=== PATIENT | female | born 1960 | race Caucasian/White ===

== ENCOUNTER 2017-06-29 01:04 | Observation (INO) ==
[2017-06-29 01:49] LABS: Basophils % 0.5 %; Eosinophils # 0.2 K/mcL (0.0-0.6); Eosinophils % 2.8 %; Hematocrit 43.4 % (35.3-44.9); Hemoglobin 14.3 g/dL (11.5-15.4); Immature Granulocytes % 0.2 % (0-4); Immature Platelets 8.5 % (1.1-6.1); Lymphocytes # 0.8 K/mcL (0.6-4.6); Lymphocytes % 8.8 %; Mean Corpuscular HGB Conc 32.9 g/dL (31.6-35.5); Mean Corpuscular Hemoglobin 29.9 pg (28.0-33.3); Mean Corpuscular Volume 90.6 fL (83.0-100.0); Monocytes # 0.6 K/mcL (0.0-1.3); Monocytes % 7.3 %; Platelet Count 148 K/mcL (140-400); Red Blood Count 4.79 M/mcL (3.82-4.97); Red Cell Distribution Width 13.4 % (11.5-14.5); Segmented Neutrophils % 80.4 %
[2017-06-29 01:58] LABS: Bilirubin,Urine Negative (Negative); Blood,Urine Negative (Negative); Clarity,Urine Clear (Clear); Color,Urine Yellow (Yellow); Glucose,Urine (UA) Normal (Normal); Ketones,Urine Negative (Negative); Leukocyte Esterase,Urine Negative (Negative); Nitrite,Urine Negative (Negative); Protein,Urine Negative (Neg-Trace); Urobilinogen,Urine Normal (Normal)
[2017-06-29 02:03] LABS: Amphetamine Screen,Urine Negative ng/mL (Cutoff=1000); Barbiturate Screen,Urine Negative ng/mL (Cutoff=200); Benzodiazepines Screen,Urine Negative ng/mL (Cutoff=200); Cannabinoid Screen,Urine Positive ng/mL (Cutoff = 50); Cocaine Screen,Urine Negative ng/mL (Cutoff= 300); Opiate Screen,Urine Negative ng/mL (Cutoff=300); Phencyclidine Screen,Urine Negative ng/mL (Cutoff=25)
[2017-06-29 02:16] LABS: Acetaminophen < 1.0 mcg/mL (10-30); Alanine Aminotransferase 13 Units/L (0-55); Albumin 3.7 g/dL (3.5-5.0); Alkaline Phosphatase 144 Units/L (38-126); Aspartate Amino Transferase 11 Units/L (5-34); BUN/Creatinine Ratio 12 (6-26); Bilirubin,Direct 0.1 mg/dL (0.0-0.5); Bilirubin,Indirect 0.1 mg/dL (0.0-1.2); Bilirubin,Total 0.2 mg/dL (0.2-1.2); Blood Urea Nitrogen 13 mg/dL (7-20); Calcium 9.7 mg/dL (8.6-10.8); Carbon Dioxide 24 mEq/L (19-29); Chloride 105 mEq/L (98-109); Ethanol < 10 mg/dL (0-10); Globulin 3.8 g/dL (2.4-3.5); Glucose 96 mg/dL (70-99); Osmolality,Calculated 296 (280-300); Potassium 3.8 mEq/L (3.5-4.5); Salicylate < 5.0 mg/dL (15-30); Sodium 143 mEq/L (136-145); Total Protein 7.5 g/dL (6.0-8.3); eGFR For African Americans > 60 (> 60); eGFR For Non-African Americans 53 (> 60)
--- NOTE | 2017-06-29 04:21 | Emergency Department Note ---
Disposition Clinical Impression: Overdose Qualifiers: Encounter type: initial encounter Injury intent: accidental or unintentional Qualified Code(s): T50.901A - Poisoning by unspecified drugs, medicaments and biological substances, accidental (unintentional), initial encounter Altered mental state Qualifiers: Altered mental status type: somnolence Qualified Code(s): R40.0 - Somnolence Disposition: Admitted As Inpatient Condition: Good General Adult HPI - General Chief complaint: ED Altered Mental Status Stated complaint: confusion Time Seen by Provider: 06/29/17 01:25 Source: patient, family Mode of arrival: private vehicle Limitations: altered mental status Nursing Notes Reviewed: Yes Vital Signs Reviewed: Yes - History of Present Illness HPI Narrative: 56-year-old female who reports that she took more gabapentin and more baclofen that she was supposed to. She denies any suicidal ideation. Her brought her into the emergency department because she was becoming more somnolent. She also was confused. He reports she has done this a few times. He has not always brought to the emergency room when she does this. He cannot tell me exactly how much gabapentin or baclofen she took. He reports until she took those medications evening she was acting normally. She has a past medical history of COPD, depression, hypothyroidism, hyperlipidemia. She does have some chronic back pain. Radiation: non-radiation Consistency: constant Improves with: nothing Worsens with: nothing Associated symptoms: Reports: denies other symptoms Treatments Prior to Arrival: none - Related Data Home Medications Medication Instructions Recorded Confirmed Atorvastatin [Lipitor] 40 mg PO HS 04/10/15 04/10/17 Sertraline [Zoloft] 200 mg PO DAILY 04/10/15 04/10/17 Albuterol Sulfate [Albuterol 2 puff IH Q4H PRN 09/01/16 04/10/17 Inhaler] BuPROPion SR (12 HR) [Wellbutrin 150 mg PO DAILY 09/01/16 04/10/17 SR] Esomeprazole Magnesium [Nexium] 40 mg PO DAILY 09/01/16 04/10/17 Levothyroxine [Synthroid] 112 mcg PO QAM 09/01/16 04/10/17 Meloxicam [Mobic] 15 mg PO DAILY 09/01/16 02/14/17 Nystatin Cream [Mycostatin Cream] 1 appl TP BID 09/01/16 04/10/17 Potassium Chloride [Klor-Con 10] 20 meq PO BID 09/01/16 04/10/17 Spironolactone [Aldactone] 100 mg PO DAILY 09/01/16 04/10/17 Trazodone HCl 200 mg PO HS 09/01/16 04/10/17 Previous Rx's Medication Instructions Recorded Hydrocortisone 1% OINT [Cortaid] 1 appl TP BID #1 tube 05/06/15 ALPRAZolam [Xanax 1 MG Tablet] 0.5 mg PO TID #0 09/04/16 Baclofen 20 mg PO HS #0 09/04/16 Furosemide [Lasix] 40 mg PO DAILY PRN #0 09/04/16 Gabapentin [Neurontin] 300 mg PO TID #0 09/04/16 Zolpidem [Ambien] 5 mg PO HS PRN #0 09/04/16 Budesonide [Entocort EC] 2 cap PO DAILY PRN #60 capdr...er 12/29/16 Promethazine [Phenergan] 25 mg PO Q6HR PRN #10 tablet 02/05/17 Loperamide [Imodium] 2 mg PO AD PRN #60 capsule 03/24/17 Diphenoxylate/Atropine [Lomotil 1 tab PO QID PRN #60 tablet 06/19/17 2.5 mg/0.025 mg] Allergies Allergy/AdvReac Type Severity Reaction Status Date / Time Latex, Natural Rubber AdvReac Anaphylaxis Verified 05/22/17 13:05 All systems ED: reviewed and negative except as stated. 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 Absent: respiratory distress - Cardiovascular Cardiovascular exam: Present: regular rate, normal rhythm - Abdominal Exam Abdominal exam: Present: soft, Non-Tender - Extremities Exam Extremities exam: Present: normal inspection - Neurological Exam Neurological exam: Present: alert, other (Appears intoxicated. Moves all extremities equally.) - Skin Skin exam: Present: warm, dry Course Course Narrative: Poison control was called. They recommended an observation period they stated the baclofen has a longer duration of action and is more likely be the cause of her somnolence. They report the adverse side effects to look out for would be potential for seizures if the amount that she ingested would push her pass the seizure threshold. They do not recommend empirically treating or prophylactic for seizures. She has been observed in the emergency department for over 2 hours and has not had improvement in her somnolence. We will admit to the hospital for further observation. QTC is normal on EKG Accepted by [facility] Vital Signs Pulse Rate 66 06/29/17 04:54 Respiratory Rate 16 06/29/17 04:54 Blood Pressure 132/89 06/29/17 04:54 O2 Sat by Pulse Oximetry 94 06/29/17 04:54 Temperature 98.2 F 06/29/17 04:58 Pulse Rate 66 06/29/17 04:58 Respiratory Rate 16 06/29/17 04:58 Blood Pressure 132/89 06/29/17 04:58 O2 Sat by Pulse Oximetry 94 06/29/17 04:58 Oxygen Delivery Oxygen Delivery Room Air Medical Decision Making - Medical Records Medical records reviewed: Yes I reviewed the patient's medical records. - Lab Data Lab results reviewed: Yes I reviewed the patient's lab results. Result diagrams: 06/29/17 01:40 06/29/17 01:40 Lab Results 06/29/17 06/29/17 06/29/17 Range/Units 01:40 01:40 01:50 WBC 8.7 (4.3-11.1) K/mcL RBC 4.79 (3.82-4.97) M/mcL Hgb 14.3 (11.5-15.4) g/dL Hct 43.4 (35.3-44.9) % MCV 90.6 (83.0-100.0) fL MCH 29.9 (28.0-33.3) pg MCHC 32.9 (31.6-35.5) g/dL RDW 13.4 (11.5-14.5) % Plt Count 148 (140-400) K/mcL MPV 12.0 (9.4-12.4) fL Immature Gran % 0.2 (0-4) % Seg Neutrophils % 80.4 % Lymphocytes % 8.8 % Monocytes % 7.3 % Eosinophils % 2.8 % Basophils % 0.5 % Neutrophils # 7.0 (1.6-8.9) K/mcL Lymphocytes # 0.8 (0.6-4.6) K/mcL Monocytes # 0.6 (0.0-1.3) K/mcL Eosinophils # 0.2 (0.0-0.6) K/mcL Basophils # 0.0 (0.0-0.2) K/mcL Immature Plt Fraction 8.5 H (1.1-6.1) % Sodium 143 (136-145) mEq/L Potassium 3.8 (3.5-4.5) mEq/L Chloride 105 (98-109) mEq/L Carbon Dioxide 24 (19-29) mEq/L BUN 13 (7-20) mg/dL Creatinine 1.07 (0.57-1.11) mg/dL Est GFR ( Amer) > 60 (> 60) Est GFR (Non-Af Amer) 53 L (> 60) BUN/Creatinine Ratio 12 (6-26) Glucose 96 (70-99) mg/dL Calculated Osmolality 296 (280-300) Calcium 9.7 (8.6-10.8) mg/dL Total Bilirubin 0.2 (0.2-1.2) mg/dL Direct Bilirubin 0.1 (0.0-0.5) mg/dL Indirect Bilirubin 0.1 (0.0-1.2) mg/dL AST 11 (5-34) Units/L ALT 13 (0-55) Units/L Alkaline Phosphatase 144 H (38-126) Units/L Serum Total Protein 7.5 (6.0-8.3) g/dL Albumin 3.7 (3.5-5.0) g/dL Globulin 3.8 H (2.4-3.5) g/dL Albumin/Globulin Ratio 1.0 L (1.1-2.2) Urine Color Yellow (Yellow) Urine Clarity Clear (Clear) Urine pH 5.0 (5.0-8.0) pH Units Ur Specific Warren 1.010 (1.010-1.025) Urine Protein Negative (Neg-Trace) mg/dL Urine Glucose (UA) Normal (Normal) mg/dL Urine Ketones Negative (Negative) mg/dL Urine Blood Negative (Negative) Urine Nitrite Negative (Negative) Urine Bilirubin Negative (Negative) Urine Urobilinogen Normal (Normal) mg/dL Ur Leukocyte Esterase Negative (Negative) Salicylates < 5.0 L (15-30) mg/dL Urine Opiates Screen (Sauxvq=612) ng/mL Acetaminophen < 1.0 L (10-30) mcg/mL Ur Barbiturates Screen (Rbtzty=599) ng/mL Ur Phencyclidine Scrn (Cutoff=25) ng/mL Ur Amphetamines Screen (Fdfzdo=1023) ng/mL U Benzodiazepines Scrn (Vmgahz=420) ng/mL Urine Cocaine Screen (Cutoff= 300) ng/mL U Marijuana (THC) Screen (Cutoff = 50) ng/mL Ethyl Alcohol < 10 (0-10) mg/dL 06/29/17 Range/Units 01:50 WBC (4.3-11.1) K/mcL RBC (3.82-4.97) M/mcL Hgb (11.5-15.4) g/dL Hct (35.3-44.9) % MCV (83.0-100.0) fL MCH (28.0-33.3) pg MCHC (31.6-35.5) g/dL RDW (11.5-14.5) % Plt Count (140-400) K/mcL MPV (9.4-12.4) fL Immature Gran % (0-4) % Seg Neutrophils % % Lymphocytes % % Monocytes % % Eosinophils % % Basophils % % Neutrophils # (1.6-8.9) K/mcL Lymphocytes # (0.6-4.6) K/mcL Monocytes # (0.0-1.3) K/mcL Eosinophils # (0.0-0.6) K/mcL Basophils # (0.0-0.2) K/mcL Immature Plt Fraction (1.1-6.1) % Sodium (136-145) mEq/L Potassium (3.5-4.5) mEq/L Chloride (98-109) mEq/L Carbon Dioxide (19-29) mEq/L BUN (7-20) mg/dL Creatinine (0.57-1.11) mg/dL Est GFR ( Amer) (> 60) Est GFR (Non-Af Amer) (> 60) BUN/Creatinine Ratio (6-26) Glucose (70-99) mg/dL Calculated Osmolality (280-300) Calcium (8.6-10.8) mg/dL Total Bilirubin (0.2-1.2) mg/dL Direct Bilirubin (0.0-0.5) mg/dL Indirect Bilirubin (0.0-1.2) mg/dL AST (5-34) Units/L ALT (0-55) Units/L Alkaline Phosphatase (38-126) Units/L Serum Total Protein (6.0-8.3) g/dL Albumin (3.5-5.0) g/dL Globulin (2.4-3.5) g/dL Albumin/Globulin Ratio (1.1-2.2) Urine Color (Yellow) Urine Clarity (Clear) Urine pH (5.0-8.0) pH Units Ur Specific Warren (1.010-1.025) Urine Protein (Neg-Trace) mg/dL Urine Glucose (UA) (Normal) mg/dL Urine Ketones (Negative) mg/dL Urine Blood (Negative) Urine Nitrite (Negative) Urine Bilirubin (Negative) Urine Urobilinogen (Normal) mg/dL Ur Leukocyte Esterase (Negative) Salicylates (15-30) mg/dL Urine Opiates Screen Negative (Cwsaro=501) ng/mL Acetaminophen (10-30) mcg/mL Ur Barbiturates Screen Negative (Qmyrlx=292) ng/mL Ur Phencyclidine Scrn Negative (Cutoff=25) ng/mL Ur Amphetamines Screen Negative (Tutena=6264) ng/mL U Benzodiazepines Scrn Negative (Pafyyq=812) ng/mL Urine Cocaine Screen Negative (Cutoff= 300) ng/mL U Marijuana (THC) Screen Positive H (Cutoff = 50) ng/mL Ethyl Alcohol (0-10) mg/dL - Radiology Data Radiology results reviewed: Yes I reviewed the patient's radiology results. - EKG Data EKG #1 EKG attestation: Yes I reviewed and interpreted this EKG. EKG shows normal: sinus rhythm Rate: normal Rhythm: NSR Vinson/QRS: normal Interpretation: no acute changes Attestation Statement - Attestation Attestation: I, Srinath Mejia MD, personally evaluated this patient and discussed their management with the resident physician. I reviewed the resident's note and agree with the documented findings, medical decision making, and plan of care. 56-year-old female presents to the emergency department by ambulance for decreased mental status and confusion. Patient admitted to taking extra of her baclofen and gabapentin. She denies any suicidal ideation or intent. Rock Mason Apprentice reports that she has done this before. He called EMS tonight because she was more difficult to arouse than usual. On examination patient is a well-developed obese female who is obtunded. She responds to physical stimuli and mumbles when asked questions but is very difficult to understand. There is no cyanosis or diaphoresis and her vital signs are normal. Breath sounds are clear and equal bilaterally. Heart regular rate and rhythm. Abdomen is soft with normal bowel sounds. No gross focal neurological deficits. Labs reviewed. No acute changes on EKG. The hospitalist, Dr. Iverson, was consulted and accepted admission of the patient.
--- NOTE | 2017-06-29 05:25 | Internal Med History&Physical ---
Date of Encounter: 06/29/17 Time of Encounter: 05:00 Assessment and Plan (1) Altered mental status Current visit: Yes Status: Acute -Patient with altered mental status secondary to prescription drug overdose; drug overdose of gabapentin/baclofen -Overdose managed as below Qualifiers: Altered mental status type: somnolence Qualified Code(s): R40.0 - Somnolence (2) Overdose Current visit: Yes Status: Acute -ER physician reports that poison control recommends supportive care of drug overdose with gabapentin/baclofen. -Will monitor patient on telemetry in addition to pulse oximetry. Qualifiers: Encounter type: initial encounter Injury intent: accidental or unintentional Qualified Code(s): T50.901A - Poisoning by unspecified drugs, medicaments and biological substances, accidental (unintentional), initial encounter (3) Drowsiness Current visit: No Status: Acute -Will order every 2 hour neuro checks for somnolence due to drug overdose above. (4) Polypharmacy Current visit: No Status: Acute -Patient on multiple narcotic/anti-anxiety /mood medications (5) Hypothyroid Current visit: Yes Status: Acute -Will continue home medication of levothyroxine Qualifiers: Hypothyroidism type: unspecified Qualified Code(s): E03.9 - Hypothyroidism , unspecified (6) Hyperlipemia Current visit: Yes Status: Acute -Continue home dose of statin Qualifiers: Hyperlipidemia type: unspecified Qualified Code(s): E78.5 - Hyperlipidemia , unspecified (7) Mood disorder Current visit: Yes Status: Acute -Continue home medications Internal Medicine - H&P: HPI Admitted From: Home Plans for Post Hospital Care: Home History of present illness: Patient is a 56-year-old female with past medical history significant for chronic back pain, mood disorder, hypothyroid and hyperlipidemia, who presented to the ER on 06/29/17 due to altered mental status. Patient is not able to give history due to somnolence/altered mental status and no family present at bedside. Per ER physician, significant other brought patient to the ER after reporting patient was more somnolent than usual due to suspected overdose of gabapentin/ baclofen; significant other uncertain of how much of the medications that patient overdosed on. On exam, patient is very somnolent and only oriented to person and can barely stay awake to do the examination. ER physician reports that poison control recommends supportive care. Patient will be admitted to the medical floor for management of drug overdose. Past Med Surg Social Fam HX - Past Medical History Medical history: cancer, hyperlipidemia, other Psychiatric history: anxiety, bipolar, depression, schizophrenia, previous psychiatric hospitalization - Past Surgical History Surgical History: other, appendectomy - Social History Smoking Status: Current every day smoker Smokeless Tobacco Status: No Alcohol use: none Drug use: marijuana - Family History Father Living Status: Hx Family Cardiac Disorders: Yes Hx Family Respiratory Disorders: Yes Mother Living Status: Still Living Internal Medicine - H&P: Meds Atorvastatin [Lipitor] 40 mg PO HS 04/10/15 [History] Sertraline [Zoloft] 200 mg PO DAILY 04/10/15 [History] Hydrocortisone 1% OINT [Cortaid] 1 appl TP BID #1 tube 05/06/15 [Rx] Albuterol Sulfate [Albuterol Inhaler] 2 puff IH Q4H PRN 09/01/16 [History] BuPROPion SR (12 HR) [Wellbutrin SR] 150 mg PO DAILY 09/01/16 [History] Esomeprazole Magnesium [Nexium] 40 mg PO DAILY 09/01/16 [History] Levothyroxine [Synthroid] 112 mcg PO QAM 09/01/16 [History] Meloxicam [Mobic] 15 mg PO DAILY 09/01/16 [History] Nystatin Cream [Mycostatin Cream] 1 appl TP BID 09/01/16 [History] Potassium Chloride [Klor-Con 10] 20 meq PO BID 09/01/16 [History] Spironolactone [Aldactone] 100 mg PO DAILY 09/01/16 [History] Trazodone HCl 200 mg PO HS 09/01/16 [History] ALPRAZolam [Xanax 1 MG Tablet] 0.5 mg PO TID #0 09/04/16 [Rx] Baclofen 20 mg PO HS #0 09/04/16 [Rx] Furosemide [Lasix] 40 mg PO DAILY PRN #0 09/04/16 [Rx] Gabapentin [Neurontin] 300 mg PO TID #0 09/04/16 [Rx] Zolpidem [Ambien] 5 mg PO HS PRN #0 09/04/16 [Rx] Budesonide [Entocort EC] 2 cap PO DAILY PRN #60 capdr...er 12/29/16 [Rx] Promethazine [Phenergan] 25 mg PO Q6HR PRN #10 tablet 02/05/17 [Rx] Loperamide [Imodium] 2 mg PO AD PRN #60 capsule 03/24/17 [Rx] Diphenoxylate/Atropine [Lomotil 2.5 mg/0.025 mg] 1 tab PO QID PRN #60 tablet [Rx] 3 Allergy/AdvReac Type Severity Reaction Status Date / Time Latex, Natural Rubber AdvReac Anaphylaxis Verified 05/22/17 13:05 ROS unobtainable: due to mental status (No family present at bedside to give history) All Systems PM: A 10-system review of systems was performed and is negative for pertinent findings except as documented above in the HPI. - Constitutional Vitals: Temp Pulse Resp BP Pulse Ox 98.2 F 66 16 132/89 94 06/29/17 04:58 06/29/17 04:58 06/29/17 04:58 06/29/17 04:58 06/29/17 04:58 General appearance: Present: A&O X 1, no acute distress - ENT ENT exam: Present: mucous membranes dry - Respiratory Respiratory exam: Present: CTAB. Absent: accessory muscle use, rales, rhonchi, wheezes - Cardiovascular Cardiovascular exam: Present: RRR, +S1, +S2. Absent: diastolic murmur, gallop, rubs, systolic murmur - GI/Abdominal GI/Abdominal exam: Present: normal bowel sounds, soft, no peritoneal signs. Absent: distended, tenderness - Extremities Exam Extremities exam: Absent: pedal edema - Neurological Exam Additional comments: Patient very somnolent on exam - Skin Skin exam: Present: warm Internal Med - H&P Results - Labs CBC & Chem 7: 06/29/17 01:40 06/29/17 01:40
[2017-06-29] MEDS ORDERED: Naloxone 0.4 MG/ML INJ IVP PRN (05:39)
--- NOTE | 2017-06-29 18:26 | Electrocardiograph Report ---
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
--- NOTE | 2017-06-29 21:18 | Event Note ---
Date of Encounter: 06/29/17 Time of Encounter: 12:12 Patient was evaluated at bedside. Boyfriend is present in room. She still displayed acute confused with alteration in alertness. Boyfriend stated she is not at baseline. They cannot identify source of AMS. He does note that she has had AMS from a UTI in the past. VS reviewed, normal BP/HR, afebrile Exam: cooperative with exam, responds to questions but she runs off tangents when answering some questions. Remainder of neuro exam is normal. 1) Acute encephalopathy Thought to be polypharmacy. Her boyfriend, her primary historian states that she sometimes takes too many pills because she is no longer prescribed pain medication. He admits that she smokes marijuana and denies any new type of marijuana or drug recently. He reports history of UTI encephalopathy but her urine does not show UTI today.This very well could be polypharmacy, would anticipate that renal function would be affected in the case of excessive gabapentin. - I would like to plan for CT of head when able. She may or may not be cooperative during the imaging. Her boyfriend noted that she gets anxious and would need Ativan to relax her. Given her altered mental status, I would avoid this at the moment. - Keep her NPO, will revaluate alertness - follow-up renal function in AM - continue supportive care - neuro checks - Neurology consult if no improvement.
[2017-06-29] MEDS: Nystatin POWDER 30 GM BOTTLE TP SCH (23:39)
[2017-06-30 05:35] LABS: Basophils % 0.5 %; Eosinophils % 2.4 %; Hematocrit 39.7 % (35.3-44.9); Hemoglobin 12.9 g/dL (11.5-15.4); Immature Granulocytes % 0.2 % (0-4); Lymphocytes % 19.1 %; Mean Corpuscular HGB Conc 32.5 g/dL (31.6-35.5); Mean Corpuscular Hemoglobin 29.4 pg (28.0-33.3); Mean Corpuscular Volume 90.4 fL (83.0-100.0); Mean Platelet Volume 11.2 fL (9.4-12.4); Monocytes % 8.7 %; Platelet Count 124 K/mcL (140-400); Red Blood Count 4.39 M/mcL (3.82-4.97); Red Cell Distribution Width 13.5 % (11.5-14.5); Segmented Neutrophils % 69.1 %
[2017-06-30 05:36] LABS: Eosinophils # 0.1 K/mcL (0.0-0.6); Lymphocytes # 1.1 K/mcL (0.6-4.6); Monocytes # 0.5 K/mcL (0.0-1.3)
[2017-06-30 05:53] LABS: BUN/Creatinine Ratio 15 (6-26); Blood Urea Nitrogen 14 mg/dL (7-20); Calcium 9.3 mg/dL (8.6-10.8); Carbon Dioxide 25 mEq/L (19-29); Chloride 107 mEq/L (98-109); Glucose 95 mg/dL (70-99); Osmolality,Calculated 292 (280-300); Potassium 3.6 mEq/L (3.5-4.5); Sodium 141 mEq/L (136-145); eGFR For African Americans > 60 (> 60); eGFR For Non-African Americans > 60 (> 60)
--- NOTE | 2017-06-30 12:31 | Internal Med Progress Note ---
Date of Encounter: 06/30/17 Time of Encounter: 12:29 - Assessment and plan (1) Acute encephalopathy Current Visit: Yes Status: Acute Assessment and plan: Suspecious for overdose. However, patient has been observed and still not at baseline, as per boyfriend's description of her baseline yesterday. I think at this point, she would tolerate a CT of head. Consult neurology. (2) Polypharmacy Current Visit: No Status: Acute (3) Drowsiness Current Visit: No Status: Resolved Assessment and plan: No longer drowsy but does still exhibit encephalopathy. (4) Hypothyroid Current Visit: Yes Status: Acute Qualifiers: Hypothyroidism type: unspecified Qualified Code(s): E03.9 - Hypothyroidism , unspecified (5) Hyperlipemia Current Visit: Yes Status: Acute Qualifiers: Hyperlipidemia type: unspecified Qualified Code(s): E78.5 - Hyperlipidemia , unspecified (6) Mood disorder Current Visit: Yes Status: Acute - Subjective Interval history: Boyfriend is not present in room. Patient still has difficulty with verbally communication. She responds to commands and answer many questions. Some stuttering and tremors present today. - Constitutional Vitals: Temp Pulse Resp BP Pulse Ox 97.5 F L 78 15 120/76 95 06/30/17 10:09 06/30/17 10:09 06/30/17 10:09 06/30/17 10:09 06/30/17 10:09 General appearance: Present: A&O X 1, no acute distress Exam: NAD CVS: RRR Lungs: CTAB Ext: no edema Neuro: no focal neuro defecits, speech is incoherent, CN II-XII grossly intact. Sensation and muscle strength is preserved. Internal Medicine: Result - Labs CBC & Chem 7: 06/30/17 05:17 06/30/17 05:17 Labs: Short CBC 06/30/17 Range/Units 05:17 WBC 5.8 (4.3-11.1) K/mcL Hgb 12.9 (11.5-15.4) g/dL Hct 39.7 (35.3-44.9) % Plt Count 124 L (140-400) K/mcL Neutrophils # 4.0 (1.6-8.9) K/mcL BMP 06/30/17 05:17 Sodium 141 Potassium 3.6 Chloride 107 Carbon Dioxide 25 BUN 14 Creatinine 0.95 Glucose 95 Calcium 9.3 - VTE Reasons for not Prescribing Prophylaxis: Treatment not Indicated - Low risk for VTE Consult Discharge Plan - Plan Referrals: Johnie Farley MD [Primary Care Provider] - 07/07/17 1:15 pm
[2017-06-30] MEDS ORDERED: *HR* LORazepam 2 MG/ML VIAL IVP PRN (12:33)
--- NOTE | 2017-06-30 17:18 | Neurology - Consult Note ---
Date of Encounter: 06/30/17 Time of Encounter: 17:16 Assessment and Plan (1) Multiple sclerosis exacerbation Current Visit: Yes Status: Acute Patient with past medical history of multiple sclerosis who developed fall and mental status changes. Speech difficulty is rather severe and can only speak few words. No focal limb weakness except some muscle spasticity. Will treat as MS exacerbation since no other medical conditions exist that can explain her symptoms. Will check gabapentin level. Not sure she overdosed anything. Will start solumedrol 1 g I daily for 3 days followed by oral taper. (2) Cervical disc disease with myelopathy Current Visit: Yes Status: Acute Patient also appears myelopathic ( in a patient with advanced MS, myelopathic symptoms can be from diffuse encephalopathy). MRI of cervical spine 01/2017 showed spinal cord disc compression at C5-C6. No discrete spinal cord signal changes noted. This likely is getting worse. Will order MRI of cervical spine and then consult ortho History of Present Illness Chief complaint: fall and mental status changes HPI: Ms. Copeland is a 56 year old female with PMH significant for MS, ADHD, depression, cervical disc disease, history of rectal or anal cancer, unsteady gait, falls, hypventilation syndrome, IVAN on BPAP who developed a fall and mental status changes. heard a fall and found her unable to talk. She does have history of MS but has not seen a neurologist recently. She has not been taking any MS DMT therapy. MRI of brain in 01/2017 showed evidence of demyelinating disorder most consistent with MS. At he time of this interview, patient is having difficulty talking. Able to tell me her name and date of . Other than, she could not answer questions and she would then develop mouth tremors. She is not in significant pain. She at times respond to question with a smile. No focal weakness noted but spasticity noted to both legs. CT of head showed no acute intracranial abnormality. Initially it was thought that she may overdosed baclofen/gabapentin. Patient denies this. Routine labs were unremarkable. Urine drug screen showed positive Marijuana. Past Med Surg Social Fam HX - Past Medical History Medical history: cancer, hyperlipidemia, other Psychiatric history: anxiety, bipolar, depression, schizophrenia, previous psychiatric hospitalization - Past Surgical History Surgical History: other, appendectomy - Social History Smoking Status: Current every day smoker Smokeless Tobacco Status: No Alcohol use: none Drug use: marijuana - Family History Father Living Status: Hx Family Cardiac Disorders: Yes Hx Family Respiratory Disorders: Yes Mother Living Status: Still Living Medications and Allergies Atorvastatin [Lipitor] 40 mg PO HS 04/10/15 [History] Sertraline [Zoloft] 100 mg PO DAILY 04/10/15 [History] Albuterol Sulfate [Albuterol Inhaler] 2 puff IH Q4H PRN 09/01/16 [History] Levothyroxine [Synthroid] 112 mcg PO QAM 09/01/16 [History] Meloxicam [Mobic] 15 mg PO DAILY 09/01/16 [History] Potassium Chloride [Klor-Con 10] 20 meq PO BID 09/01/16 [History] Trazodone HCl 200 mg PO HS 09/01/16 [History] ALPRAZolam [Xanax 1 MG Tablet] 0.5 mg PO TID #0 09/04/16 [Rx] Baclofen 20 mg PO HS #0 09/04/16 [Rx] Furosemide [Lasix] 40 mg PO DAILY PRN #0 09/04/16 [Rx] Zolpidem [Ambien] 5 mg PO HS PRN #0 09/04/16 [Rx] Promethazine [Phenergan] 25 mg PO Q6HR PRN #10 tablet 02/05/17 [Rx] Diphenoxylate/Atropine [Lomotil 2.5 mg/0.025 mg] 1 tab PO QID PRN #60 tablet [Rx] Fluticasone Propionate [Flovent Hfa] 1 puff IH BID 06/29/17 [History] Gabapentin [Neurontin] 600 mg PO TID 06/29/17 [History] Mirabegron [Myrbetriq] 50 mg PO DAILY 06/29/17 [History] Pantoprazole Sodium [Protonix] 40 mg PO DAILY 06/29/17 [History] 3 Allergy/AdvReac Type Severity Reaction Status Date / Time Latex, Natural Rubber AdvReac Anaphylaxis Verified 05/22/17 13:05 All Systems: A 10-system review of systems was performed and is negative for pertinent findings except as documented above in the HPI. Physical Examination - Vital Signs Vital Signs: Initial Vital Signs Pulse Resp BP Pulse Ox 66 16 132/89 94 06/29/17 04:54 06/29/17 04:54 06/29/17 04:54 06/29/17 04:54 - Constitutional General appearance: comfortable - Neurologic Sensorimotor examination: other (Unable to assess due to speech difficulty) Detailed motor examination: grossly full strength in all extremities (spastic in all extremities. Hand air brush operator are equal. Musble strength at least 4+/5 bilaterally) Detailed sensory examination: other (unable to assess due to speech difficulty) Reflexes: Biceps: 2+, Triceps: 2+, Brachioradialis: 2+, Patella: 2+, Achilles: 2 + Mental Status Examination: awake, alert, follows commands appropriately, does not follow commands (Patient has speech diffiiculty, expressive aphasia), opens eyes to voice, makes eye contact, follows simple commands Cranial nerve examination: PERRL, EOMI (eye movement full), corneal reflexes brisk symmetrically, sensory to face intact, mastication intact, no facial asymmetry is present, hearing is intact symmetrically, gag reflex intact, tongue protrudes midline Results - Laboratory Findings CBC and BMP: 06/30/17 05:17 06/30/17 05:17 Abnormal lab findings: Abnormal lab results Plt Count 124 K/mcL (140-400) L 06/30/17 05:17 Immature Plt Fraction 8.5 % (1.1-6.1) H 06/29/17 01:40 POC Glucose 94 (58-89) H 06/30/17 03:38 Alkaline Phosphatase 144 Units/L (38-126) H 06/29/17 01:40 Globulin 3.8 g/dL (2.4-3.5) H 06/29/17 01:40 Albumin/Globulin Ratio 1.0 (1.1-2.2) L 06/29/17 01:40 Salicylates < 5.0 mg/dL (15-30) L 06/29/17 01:40 Acetaminophen < 1.0 mcg/mL (10-30) L 06/29/17 01:40 U Marijuana (THC) Screen Positive ng/mL (Cutoff = 50) H 06/29/17 01:50 Consult Discharge Plan - Plan Referrals: Johnie Farley MD [Primary Care Provider] - 07/07/17 1:15 pm
[2017-06-30] MEDS ORDERED: *HR* LORazepam 2 MG/ML VIAL IVP ONE (17:38)
[2017-07-01] MEDS: Nystatin POWDER 30 GM BOTTLE TP SCH ×5 (00:16→21:06)
[2017-07-01 06:34] LABS: Hematocrit 42.8 % (35.3-44.9); Immature Granulocytes % 0.2 % (0-4); Lymphocytes # 0.4 K/mcL (0.6-4.6); Lymphocytes % 8.7 %; Mean Corpuscular HGB Conc 32.7 g/dL (31.6-35.5); Mean Corpuscular Hemoglobin 29.2 pg (28.0-33.3); Mean Corpuscular Volume 89.4 fL (83.0-100.0); Mean Platelet Volume 11.3 fL (9.4-12.4); Monocytes # 0.1 K/mcL (0.0-1.3); Neutrophils # 4.4 K/mcL (1.6-8.9); Platelet Count 145 K/mcL (140-400); Red Blood Count 4.79 M/mcL (3.82-4.97); Red Cell Distribution Width 13.1 % (11.5-14.5); Segmented Neutrophils % 90.1 %
[2017-07-01 06:47] LABS: BUN/Creatinine Ratio 22 (6-26); Blood Urea Nitrogen 20 mg/dL (7-20); Calcium 9.6 mg/dL (8.6-10.8); Carbon Dioxide 22 mEq/L (19-29); Chloride 103 mEq/L (98-109); Glucose 142 mg/dL (70-99); Osmolality,Calculated 289 (280-300); Potassium 3.7 mEq/L (3.5-4.5); Sodium 137 mEq/L (136-145); eGFR For African Americans > 60 (> 60); eGFR For Non-African Americans > 60 (> 60)
[2017-07-01] MEDS ORDERED: Insulin DETEMIR 100 UNIT/ML X5UNITS SQ ONE (10:07)
[2017-07-01] MEDS ORDERED: D5% in 0.45% NACL w KCl 10 MEQ/1,000 ML MLS IVC SCH (10:15)
--- NOTE | 2017-07-01 11:06 | Neurology Progress Note ---
Date of Encounter: 07/01/17 Time of Encounter: 11:03 Assessment and Plan (1) Multiple sclerosis exacerbation Current Visit: Yes Status: Acute Symptoms improving especially her speech difficulty. Leg strength also improved back. Will continue IV steroid therapy as planned, followed by oral taper. She may benefit from PT. (2) Cervical disc disease with myelopathy Current Visit: Yes Status: Acute Patient refused MRI scanning due to claustrophobia. She has had MRI of thoracic spine one month ago. This can be properly followed up as an outpatient. Subjective Principal diagnosis: MS exacerbation Interval history: Patient seen and examined. She is doing much better today especially in terms of her speech. She is rather fluent now and able to communicate with no difficulty. Denies any significant discomforts. She denied MRI due to significant claustrophobia. She relates that she has seen neurologist at [facility] [place] and she was last seen by her neurologist one month ago. Not sure why she is not on MS DMT therapy. Objective - Constitutional Vitals: Temp Pulse Resp BP Pulse Ox 97.6 F 95 15 146/92 94 07/01/17 03:58 07/01/17 03:58 07/01/17 03:58 07/01/17 03:58 07/01/17 03:58 - Neurological Exam Sensorimotor examination: Present: other (Grossly intact) Motor Examination: Present: grossly full strength in all extremities (spastic in all extremities. Hand ticket printer are equal. Musble strength at least 4+/5 bilaterally) Motor examination - right side: 4/5: deltoids, biceps, triceps, wrist flexion, wrist extension, senior pharmacy technician, hip flexors, tibialis Anterior, quadriceps, toe extension (EHL), plantarflexion Motor examination - left side: 4/5: deltoids, biceps, triceps, wrist flexion, wrist extension, hip flexors, senior pharmacy technician, quadriceps, tibialis Anterior, toe extension (EHL), plantarflexion Sensation intact: Present: other (unable to assess due to speech difficulty) Reflexes: Biceps: 2+, Triceps: 2+, Brachioradialis: 2+, Patella: 2+, Achilles: 2 + Mental Status Examination: Present: awake, alert, oriented to person, oriented to place, oriented to time, follows commands appropriately, makes eye contact Cranial nerve examination: Present: PERRL, corneal reflexes brisk symmetrically , sensory to face intact, mastication intact, no facial asymmetry is present, hearing is intact symmetrically, soft palate elevates bilaterally upon phonation , gag reflex intact, flexes SCM and trapezius muscles symmetrically with full power, tongue protrudes midline - VTE Reasons for not Prescribing Prophylaxis: Treatment not Indicated - Low risk for VTE Results - Laboratory Findings CBC and BMP: 07/01/17 06:04 07/01/17 06:04 Abnormal lab findings: Abnormal lab results Lymphocytes # 0.4 K/mcL (0.6-4.6) L 07/01/17 06:04 Immature Plt Fraction 8.5 % (1.1-6.1) H 06/29/17 01:40 Glucose 142 mg/dL (70-99) H 07/01/17 06:04 POC Glucose 142 (58-89) H 07/01/17 05:26 Alkaline Phosphatase 144 Units/L (38-126) H 06/29/17 01:40 Globulin 3.8 g/dL (2.4-3.5) H 06/29/17 01:40 Albumin/Globulin Ratio 1.0 (1.1-2.2) L 06/29/17 01:40 Salicylates < 5.0 mg/dL (15-30) L 06/29/17 01:40 Acetaminophen < 1.0 mcg/mL (10-30) L 06/29/17 01:40 U Marijuana (THC) Screen Positive ng/mL (Cutoff = 50) H 06/29/17 01:50 Consult Discharge Plan - Plan Referrals: Johnie Farley MD [Primary Care Provider] - 07/07/17 1:15 pm
[2017-07-01] MEDS ORDERED: *HR* LORazepam 2 MG/ML VIAL IVP ONE (14:01)
[2017-07-01] MEDS ORDERED: Insulin DETEMIR 100 UNIT/ML X5UNITS SQ SCH (21:00)
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
[2017-07-02] MEDS: MetroNIDAZOLE 500 MG/100 ML 500 MG/100 ML BAG IVPB SCH ×2 (00:03→09:53)
[2017-07-02 05:01] LABS: Basophils % 0.1 %; Hematocrit 40.6 % (35.3-44.9); Hemoglobin 13.3 g/dL (11.5-15.4); Immature Granulocytes % 0.5 % (0-4); Lymphocytes # 0.5 K/mcL (0.6-4.6); Lymphocytes % 6.2 %; Mean Corpuscular HGB Conc 32.8 g/dL (31.6-35.5); Mean Corpuscular Hemoglobin 29.2 pg (28.0-33.3); Mean Platelet Volume 11.4 fL (9.4-12.4); Monocytes # 0.1 K/mcL (0.0-1.3); Monocytes % 1.7 %; Neutrophils # 7.2 K/mcL (1.6-8.9); Platelet Count 142 K/mcL (140-400); Red Blood Count 4.56 M/mcL (3.82-4.97); Segmented Neutrophils % 91.5 %
[2017-07-02 05:17] LABS: BUN/Creatinine Ratio 25 (6-26); Blood Urea Nitrogen 21 mg/dL (7-20); Calcium 9.1 mg/dL (8.6-10.8); Carbon Dioxide 21 mEq/L (19-29); Chloride 106 mEq/L (98-109); Glucose 147 mg/dL (70-99); Osmolality,Calculated 294 (280-300); Potassium 3.7 mEq/L (3.5-4.5); Sodium 139 mEq/L (136-145); eGFR For African Americans > 60 (> 60); eGFR For Non-African Americans > 60 (> 60)
[2017-07-02 07:21] VITALS: BP 137/80
[2017-07-02] MEDS ORDERED: ALPRAZolam 0.5 MG TABLET PO PRN (08:00)
[2017-07-02] MEDS ORDERED: D5% in 0.45% NACL w KCl 10 MEQ/1,000 ML MLS IVC SCH (08:00)
[2017-07-02] MEDS ORDERED: Gabapentin 300 MG CAPSULE PO SCH (09:45)
[2017-07-02] MEDS: Nystatin POWDER 30 GM BOTTLE TP SCH (10:38)
--- NOTE | 2017-07-02 12:51 | Discharge Summary ---
Date of Encounter: 07/02/17 Time of Encounter: 12:50 - Discharge Diagnosis (1) Multiple sclerosis exacerbation Priority: Primary Status: Acute (2) Clostridium difficile diarrhea Priority: Secondary Status: Chronic Comments: She has history of chronic diarrhea for which she takes Lomotil. As likely patient came in with this infection. It was discussed with her that she needs to hold Lomotil as it is contraindicated in infectious diarrhea. Also informed patient that there is an association between Protonix and C. difficile infections, and could consider discontinuing that medication. (3) Polypharmacy Priority: Secondary Status: Acute (4) Drowsiness Priority: Secondary Status: Resolved (5) Hypothyroid Priority: Secondary Status: Acute Qualifiers: Hypothyroidism type: unspecified Qualified Code(s): E03.9 - Hypothyroidism , unspecified (6) Hyperlipemia Priority: Secondary Status: Acute Qualifiers: Hyperlipidemia type: unspecified Qualified Code(s): E78.5 - Hyperlipidemia , unspecified (7) Mood disorder Priority: Secondary Status: Acute - Discharge Medications Home Medications: Atorvastatin [Lipitor] 40 mg PO HS 04/10/15 [History] Sertraline [Zoloft] 100 mg PO DAILY 04/10/15 [History] Albuterol Sulfate [Albuterol Inhaler] 2 puff IH Q4H PRN 09/01/16 [History] Levothyroxine [Synthroid] 112 mcg PO QAM 09/01/16 [History] Meloxicam [Mobic] 15 mg PO DAILY 09/01/16 [History] Potassium Chloride [Klor-Con 10] 20 meq PO BID 09/01/16 [History] Trazodone HCl 200 mg PO HS 09/01/16 [History] ALPRAZolam [Xanax 1 MG Tablet] 0.5 mg PO TID #0 09/04/16 [Rx] Baclofen 20 mg PO HS #0 09/04/16 [Rx] Furosemide [Lasix] 40 mg PO DAILY PRN #0 09/04/16 [Rx] Zolpidem [Ambien] 5 mg PO HS PRN #0 09/04/16 [Rx] Promethazine [Phenergan] 25 mg PO Q6HR PRN #10 tablet 02/05/17 [Rx] Fluticasone Propionate [Flovent Hfa] 1 puff IH BID 06/29/17 [History] Gabapentin [Neurontin] 600 mg PO TID 06/29/17 [History] Mirabegron [Myrbetriq] 50 mg PO DAILY 06/29/17 [History] Pantoprazole Sodium [Protonix] 40 mg PO DAILY 06/29/17 [History] metroNIDAZOLE [Flagyl] 500 mg PO TID #30 tablet 07/02/17 [Rx] predniSONE [PredniSONE] See Taper PO DAILY #21 tablet 07/02/17 [Rx] Allergies/Adverse Reactions: 3 Allergy/AdvReac Type Severity Reaction Status Date / Time Latex, Natural Rubber AdvReac Anaphylaxis Verified 05/22/17 13:05 Procedures/tests Complete & Pending: Procedures Performed prior 72 hours Category Date Time Status CT head/brain wo con [CT] Stat Cat Scan 06/30/17 12:31 Completed Date of admission: 06/29/17 05:01 Primary care physician: Johnie Farley MD Consults: 06/29/17 05:43 Consult to Tissue Coordinator [CONS] Routine Reason for SW Consult: drug overdose 06/30/17 14:08 Consult to Neurology [CONS] Routine Consulting Provider: Kelly Win Reason for Consult: Acute Encephalopathy Call Completed: Yes 06/30/17 17:34 Consult to Speech Therapy [CONS] Routine Comment: Evaluate, develop and implement POC Reason for Consult: Altered mental status, swallow eval Call Completed: No 07/01/17 10:24 Consult to Physical Therapy [CONS] Routine Comment: Evaluate, develop and implement POC Reason for Consult: Disposition planning. Therapy - weakness in bed. Discharging clinician: Tyesha Stephens - Patient Status Disposition: Home, Self-Care Condition: Good Functional capacity at discharge: uses cane/walker Overall status at discharge: patient is progressing back to baseline - Discharge Instructions Follow Up With: Johnie Farley MD [Primary Care Provider] - 07/07/17 1:15 pm - Diet and Activity Activity: as per physical therapy, increase activity as tolerated Diet: advance to your usual diet Hospital course: Ms. Copeland is a 56 year old female with past medical history significant for multiple sclerosis, ADHD, depression, unsteady gait, falls who developed a fall and mental status change 2 days ago. She revealed later that she also has chronic diarrhea prior to admission for which she takes Lomotil at home. She has not seen a neurologist for her multiple sclerosis recently. Her boyfriend was the main historian upon admission as patient did not have meaningful speech. He found her fallen and unable to talk. Initially it was thought that patient may have overdosed on baclofen/gabapentin. When patient became more arousable she denied this. Her boyfriend did not think this was most likely. Her labs were normal including renal function. She was initially somnolent but became more alert, however her speech was still impaired. Patient was having difficulty talking was able to tell her name and date of . Other than that she was not able to answer questions appropriately and would also develop mild tremors. Neurology was consulted. A CT of head without contrast was done and showed no acute abnormalities. Patient was started on Solu-Medrol 1 g daily for 3 days followed. She was scheduled to have an MRI but could not be done because she developed acute agitation. By this time she was ready shown improvement and so this test could be followed up as outpatient. She had stool tested for positive C. difficile since her diarrhea, no Lomotil was given during this admission. She was placed on Flagyl. She had no signs of abdominal distention, had a few loose stools per day but her appetite was good and she showed no signs of dehydration. She was discharged home with 10 day course of Flagyl and 6 day prednisone taper for MS exacerbation. She was instructed to follow-up with her primary care provider at next available appointment - Time Spent with Patient Total time spent providing and/or coordinating discharge services: - Constitutional Vitals: Temp Pulse Resp BP Pulse Ox 98.1 F 82 16 137/80 94 07/02/17 06:55 07/02/17 06:55 07/02/17 06:55 07/02/17 06:55 07/02/17 06:55 General appearance: Present: A&O X 3, no acute distress, answers questions appropriately Exam: -CVS: Regular rate and rhythm -Lungs: Clear to auscultation bilaterally -Abdomen: Soft, non-tender, non-distended. - Neurological Exam Sensorimotor examination: Present: other (Grossly intact) Motor Examination: Present: grossly full strength in all extremities (spastic in all extremities. Hand music researcher are equal. Musble strength at least 4+/5 bilaterally) Motor examination - right side: 4/5: deltoids, biceps, triceps, wrist flexion, wrist extension, steel engraver, hip flexors, tibialis Anterior, quadriceps, toe extension (EHL), plantarflexion Motor examination - left side: 4/5: deltoids, biceps, triceps, wrist flexion, wrist extension, hip flexors, steel engraver, quadriceps, tibialis Anterior, toe extension (EHL), plantarflexion Sensation intact: Present: other (unable to assess due to speech difficulty) Reflexes: Biceps: 2+, Triceps: 2+, Brachioradialis: 2+, Patella: 2+, Achilles: 2 + Mental Status Examination: Present: awake, alert, oriented to person, oriented to place, oriented to time, follows commands appropriately, makes eye contact Cranial nerve examination: Present: PERRL, corneal reflexes brisk symmetrically , sensory to face intact, mastication intact, no facial asymmetry is present, hearing is intact symmetrically, soft palate elevates bilaterally upon phonation , gag reflex intact, flexes SCM and trapezius muscles symmetrically with full power, tongue protrudes midline - VTE Reasons for not Prescribing Prophylaxis: Treatment not Indicated - Low risk for VTE
[2017-07-03] MEDS ORDERED: predniSONE 20 MG TABLET PO SCH ×2 (09:00)
[2017-07-07] MEDS ORDERED: predniSONE 20 MG TABLET PO SCH (09:00)
[2017-07-11] MEDS ORDERED: predniSONE 20 MG TABLET PO SCH (09:00)
[2017-07-15] MEDS ORDERED: predniSONE 10 MG TABLET PO SCH (09:00)
== END 2017-07-02 15:35 | disposition home or self-care (01) ==
LOC: EMEROO 01:04 → 3ANU 01:04
PROVIDERS: ADMIT Hospitalist; ATTEND Student in an Organized Health Care Education/Training Program

== ENCOUNTER 2017-07-14 12:15 | Inpatient (IN) ==
--- NOTE | 2017-07-14 12:18 | Emergency Department Note ---
Disposition Clinical Impression: Altered mental status, Medication overdose Disposition: Admitted As Inpatient Condition: Fair General Adult HPI - General Chief complaint: ED Weakness Stated complaint: weakness Time Seen by Provider: 07/14/17 12:17 - Related Data Home Medications Medication Instructions Recorded Confirmed Atorvastatin [Lipitor] 40 mg PO HS 04/10/15 07/14/17 Sertraline [Zoloft] 100 mg PO DAILY 04/10/15 07/14/17 Albuterol Sulfate [Albuterol 2 puff IH Q4H PRN 09/01/16 07/14/17 Inhaler] Levothyroxine [Synthroid] 112 mcg PO QAM 09/01/16 07/14/17 Meloxicam [Mobic] 15 mg PO DAILY 09/01/16 07/14/17 Potassium Chloride [Klor-Con 10] 20 meq PO BID 09/01/16 07/14/17 Trazodone HCl 200 mg PO HS 09/01/16 07/14/17 Fluticasone Propionate [Flovent 1 puff IH BID 06/29/17 07/14/17 Hfa] Gabapentin [Neurontin] 600 mg PO TID 06/29/17 07/14/17 Mirabegron [Myrbetriq] 50 mg PO DAILY 06/29/17 07/14/17 Pantoprazole Sodium [Protonix] 40 mg PO DAILY 06/29/17 07/14/17 ALPRAZolam [Xanax 1 MG Tablet] 1 mg PO BID 07/14/17 07/14/17 Diphenoxylate/Atropine [Lomotil 1 tab PO QID PRN 07/14/17 07/14/17 2.5 mg/0.025 mg] Previous Rx's Medication Instructions Recorded Baclofen 20 mg PO HS #0 09/04/16 Furosemide [Lasix] 40 mg PO DAILY PRN #0 09/04/16 Zolpidem [Ambien] 5 mg PO HS PRN #0 09/04/16 Allergies Allergy/AdvReac Type Severity Reaction Status Date / Time Latex, Natural Rubber AdvReac Anaphylaxis Verified 05/22/17 13:05 Past Medical History - Past Medical History Medical history: Reports: cancer, hyperlipidemia, other Surgical history: Reports: other, appendectomy Psychiatric history: Reports: anxiety, bipolar, depression, schizophrenia, previous psychiatric hospitalization 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 CHIEF history: Reports: bilateral tubal ligation - Social History Smoking Status: Current every day smoker Smokeless Tobacco Status: No Alcohol use: Reports: none Drug use: Reports: marijuana Course Vital Signs Temperature 98.7 F 07/14/17 12:16 Pulse Rate 71 07/14/17 12:16 Respiratory Rate 20 07/14/17 12:16 Blood Pressure 133/78 07/14/17 12:16 O2 Sat by Pulse Oximetry 98 07/14/17 12:16 Temperature 98.5 F 07/14/17 16:02 Pulse Rate 83 07/14/17 16:02 Respiratory Rate 16 07/14/17 16:02 Blood Pressure 106/72 07/14/17 16:02 O2 Sat by Pulse Oximetry 98 07/14/17 16:02 Oxygen Delivery Oxygen Delivery Room Air Medical Decision Making - Lab Data Result diagrams: 07/14/17 12:49 07/14/17 12:49 Lab Results 07/14/17 07/14/17 07/14/17 Range/Units 12:28 12:49 12:49 WBC 8.2 (4.3-11.1) K/mcL RBC 3.78 L (3.82-4.97) M/mcL Hgb 11.2 L (11.5-15.4) g/dL Hct 34.9 L (35.3-44.9) % MCV 92.3 (83.0-100.0) fL MCH 29.6 (28.0-33.3) pg MCHC 32.1 (31.6-35.5) g/dL RDW 13.8 (11.5-14.5) % Plt Count 118 L (140-400) K/mcL MPV 11.2 (9.4-12.4) fL Immature Gran % 0.4 (0-4) % Seg Neutrophils % 81.1 % Lymphocytes % 12.0 % Monocytes % 5.1 % Eosinophils % 1.3 % Basophils % 0.1 % Neutrophils # 6.6 (1.6-8.9) K/mcL Lymphocytes # 1.0 (0.6-4.6) K/mcL Monocytes # 0.4 (0.0-1.3) K/mcL Eosinophils # 0.1 (0.0-0.6) K/mcL Basophils # 0.0 (0.0-0.2) K/mcL PT 11.5 (9.4-12.1) Seconds INR 1.1 APTT 25.8 L (26.0-36.0) Seconds Sodium (136-145) mEq/L Potassium (3.5-4.5) mEq/L Chloride (98-109) mEq/L Carbon Dioxide (19-29) mEq/L BUN (7-20) mg/dL Creatinine (0.57-1.11) mg/dL Est GFR ( Amer) (> 60) Est GFR (Non-Af Amer) (> 60) BUN/Creatinine Ratio (6-26) Glucose (70-99) mg/dL POC Glucose 87 (58-89) Calculated Osmolality (280-300) Calcium (8.6-10.8) mg/dL Total Bilirubin (0.2-1.2) mg/dL Direct Bilirubin (0.0-0.5) mg/dL Indirect Bilirubin (0.0-1.2) mg/dL AST (5-34) Units/L ALT (0-55) Units/L Alkaline Phosphatase (38-126) Units/L Troponin I (0-0.03) ng/mL Serum Total Protein (6.0-8.3) g/dL Albumin (3.5-5.0) g/dL Globulin (2.4-3.5) g/dL Albumin/Globulin Ratio (1.1-2.2) Urine Color (Yellow) Urine Clarity (Clear) Urine pH (5.0-8.0) pH Units Ur Specific [place] (1.010-1.025) Urine Protein (Neg-Trace) mg/dL Urine Glucose (UA) (Normal) mg/dL Urine Ketones (Negative) mg/dL Urine Blood (Negative) Urine Nitrite (Negative) Urine Bilirubin (Negative) Urine Urobilinogen (Normal) mg/dL Ur Leukocyte Esterase (Negative) Ur Culture Indicated? (NO) Salicylates (15-30) mg/dL Urine Opiates Screen (Ecgnie=535) ng/mL Acetaminophen (10-30) mcg/mL Ur Barbiturates Screen (Rdbkqf=909) ng/mL Ur Phencyclidine Scrn (Cutoff=25) ng/mL Ur Amphetamines Screen (Nhjkvz=4019) ng/mL U Benzodiazepines Scrn (Rcocyz=138) ng/mL Urine Cocaine Screen (Cutoff= 300) ng/mL U Marijuana (THC) Screen (Cutoff = 50) ng/mL Ethyl Alcohol (0-10) mg/dL 07/14/17 07/14/17 07/14/17 Range/Units 12:49 12:49 13:15 WBC (4.3-11.1) K/mcL RBC (3.82-4.97) M/mcL Hgb (11.5-15.4) g/dL Hct (35.3-44.9) % MCV (83.0-100.0) fL MCH (28.0-33.3) pg MCHC (31.6-35.5) g/dL RDW (11.5-14.5) % Plt Count (140-400) K/mcL MPV (9.4-12.4) fL Immature Gran % (0-4) % Seg Neutrophils % % Lymphocytes % % Monocytes % % Eosinophils % % Basophils % % Neutrophils # (1.6-8.9) K/mcL Lymphocytes # (0.6-4.6) K/mcL Monocytes # (0.0-1.3) K/mcL Eosinophils # (0.0-0.6) K/mcL Basophils # (0.0-0.2) K/mcL PT (9.4-12.1) Seconds INR APTT (26.0-36.0) Seconds Sodium 143 (136-145) mEq/L Potassium 3.8 (3.5-4.5) mEq/L Chloride 109 (98-109) mEq/L Carbon Dioxide 27 (19-29) mEq/L BUN 13 (7-20) mg/dL Creatinine 1.23 H (0.57-1.11) mg/dL Est GFR ( Amer) 55 L (> 60) Est GFR (Non-Af Amer) 45 L (> 60) BUN/Creatinine Ratio 11 (6-26) Glucose 93 (70-99) mg/dL POC Glucose (58-89) Calculated Osmolality 296 (280-300) Calcium 8.8 (8.6-10.8) mg/dL Total Bilirubin 0.5 (0.2-1.2) mg/dL Direct Bilirubin 0.2 (0.0-0.5) mg/dL Indirect Bilirubin 0.3 (0.0-1.2) mg/dL AST 8 (5-34) Units/L ALT 13 (0-55) Units/L Alkaline Phosphatase 93 (38-126) Units/L Troponin I 0.00 (0-0.03) ng/mL Serum Total Protein 5.8 L (6.0-8.3) g/dL Albumin 2.9 L (3.5-5.0) g/dL Globulin 2.9 (2.4-3.5) g/dL Albumin/Globulin Ratio 1.0 L (1.1-2.2) Urine Color Yellow (Yellow) Urine Clarity Clear (Clear) Urine pH 6.0 (5.0-8.0) pH Units Ur Specific [place] 1.017 (1.010-1.025) Urine Protein Negative (Neg-Trace) mg/dL Urine Glucose (UA) Normal (Normal) mg/dL Urine Ketones Negative (Negative) mg/dL Urine Blood Negative (Negative) Urine Nitrite Negative (Negative) Urine Bilirubin Negative (Negative) Urine Urobilinogen Normal (Normal) mg/dL Ur Leukocyte Esterase Negative (Negative) Ur Culture Indicated? NO (NO) Salicylates < 5.0 L (15-30) mg/dL Urine Opiates Screen (Rnlnes=116) ng/mL Acetaminophen < 1.0 L (10-30) mcg/mL Ur Barbiturates Screen (Kzhbwo=045) ng/mL Ur Phencyclidine Scrn (Cutoff=25) ng/mL Ur Amphetamines Screen (Ocjexx=8012) ng/mL U Benzodiazepines Scrn (Fxdfff=551) ng/mL Urine Cocaine Screen (Cutoff= 300) ng/mL U Marijuana (THC) Screen (Cutoff = 50) ng/mL Ethyl Alcohol < 10 (0-10) mg/dL 07/14/17 Range/Units 13:15 WBC (4.3-11.1) K/mcL RBC (3.82-4.97) M/mcL Hgb (11.5-15.4) g/dL Hct (35.3-44.9) % MCV (83.0-100.0) fL MCH (28.0-33.3) pg MCHC (31.6-35.5) g/dL RDW (11.5-14.5) % Plt Count (140-400) K/mcL MPV (9.4-12.4) fL Immature Gran % (0-4) % Seg Neutrophils % % Lymphocytes % % Monocytes % % Eosinophils % % Basophils % % Neutrophils # (1.6-8.9) K/mcL Lymphocytes # (0.6-4.6) K/mcL Monocytes # (0.0-1.3) K/mcL Eosinophils # (0.0-0.6) K/mcL Basophils # (0.0-0.2) K/mcL PT (9.4-12.1) Seconds INR APTT (26.0-36.0) Seconds Sodium (136-145) mEq/L Potassium (3.5-4.5) mEq/L Chloride (98-109) mEq/L Carbon Dioxide (19-29) mEq/L BUN (7-20) mg/dL Creatinine (0.57-1.11) mg/dL Est GFR ( Amer) (> 60) Est GFR (Non-Af Amer) (> 60) BUN/Creatinine Ratio (6-26) Glucose (70-99) mg/dL POC Glucose (58-89) Calculated Osmolality (280-300) Calcium (8.6-10.8) mg/dL Total Bilirubin (0.2-1.2) mg/dL Direct Bilirubin (0.0-0.5) mg/dL Indirect Bilirubin (0.0-1.2) mg/dL AST (5-34) Units/L ALT (0-55) Units/L Alkaline Phosphatase (38-126) Units/L Troponin I (0-0.03) ng/mL Serum Total Protein (6.0-8.3) g/dL Albumin (3.5-5.0) g/dL Globulin (2.4-3.5) g/dL Albumin/Globulin Ratio (1.1-2.2) Urine Color (Yellow) Urine Clarity (Clear) Urine pH (5.0-8.0) pH Units Ur Specific [place] (1.010-1.025) Urine Protein (Neg-Trace) mg/dL Urine Glucose (UA) (Normal) mg/dL Urine Ketones (Negative) mg/dL Urine Blood (Negative) Urine Nitrite (Negative) Urine Bilirubin (Negative) Urine Urobilinogen (Normal) mg/dL Ur Leukocyte Esterase (Negative) Ur Culture Indicated? (NO) Salicylates (15-30) mg/dL Urine Opiates Screen Negative (Rwgmgh=154) ng/mL Acetaminophen (10-30) mcg/mL Ur Barbiturates Screen Negative (Vblwvf=870) ng/mL Ur Phencyclidine Scrn Negative (Cutoff=25) ng/mL Ur Amphetamines Screen Positive H (Qhurue=8692) ng/mL U Benzodiazepines Scrn Negative (Pqtarj=589) ng/mL Urine Cocaine Screen Negative (Cutoff= 300) ng/mL U Marijuana (THC) Screen Positive H (Cutoff = 50) ng/mL Ethyl Alcohol (0-10) mg/dL Attestation Statement - Attestation Attestation: I examined this patient and my medical decision-making was reviewed with the Resident Physician. I agree with the documented findings, disposition and treatment plan as described except to the extent set forth below. Fiqp-re-puyj time provided Patient presents by EMS from home with generalized weakness. History of MS. There is concern that she may have taken additional doses of trazodone. The patient is alert and answers questions appropriately at the time of initial arrival and exam
--- NOTE | 2017-07-14 12:27 | Emergency Department Note ---
Disposition Clinical Impression: Altered mental status Qualifiers: Altered mental status type: unspecified Qualified Code(s): R41.82 - Altered mental status, unspecified Medication overdose Qualifiers: Encounter type: initial encounter Injury intent: undetermined intent Qualified Code(s): T50.904A - Poisoning by unspecified drugs, medicaments and biological substances, undetermined, initial encounter Disposition: Admitted As Inpatient Condition: Fair Referrals: Johnie Farley MD [Primary Care Provider] - Forms: ED Satisfaction Letter Time of Disposition: 14:42 Altered Mental Status HPI - General Chief Complaint: ED Weakness Stated Complaint: weakness Time Seen by Provider: 07/14/17 12:17 Source: patient, EMS Mode of arrival: EMS Limitations: altered mental status Nursing Notes Reviewed: Yes Vital Signs Reviewed: Yes - History of Present Illness HPI Narrative: Patient is a 56-year-old female with past medical history of cancer, MS, hyperlipidemia. She presents today via EMS due to altered mental status. Patient lives with family, they are not currently at bedside. The patient herself is confused, very groggy, will open her eyes when spoken to but cannot tell me her name, where she is, what year it is. She cannot answer any review of system questions for me. She will follow commands, opens her eyes, but her mouth, 600, squeezes hands bilaterally, wiggles all toes bilaterally. However, when not performing commands, she keeps her eyes closed and appears to be sleeping. She is maintaining her airway currently. - Related Data Home Medications Medication Instructions Recorded Confirmed Atorvastatin [Lipitor] 40 mg PO HS 04/10/15 07/14/17 Sertraline [Zoloft] 100 mg PO DAILY 04/10/15 07/14/17 Albuterol Sulfate [Albuterol 2 puff IH Q4H PRN 09/01/16 07/14/17 Inhaler] Levothyroxine [Synthroid] 112 mcg PO QAM 09/01/16 07/14/17 Meloxicam [Mobic] 15 mg PO DAILY 09/01/16 07/14/17 Potassium Chloride [Klor-Con 10] 20 meq PO BID 09/01/16 07/14/17 Trazodone HCl 200 mg PO HS 09/01/16 07/14/17 Fluticasone Propionate [Flovent 1 puff IH BID 06/29/17 07/14/17 Hfa] Gabapentin [Neurontin] 600 mg PO TID 06/29/17 07/14/17 Mirabegron [Myrbetriq] 50 mg PO DAILY 06/29/17 07/14/17 Pantoprazole Sodium [Protonix] 40 mg PO DAILY 06/29/17 07/14/17 ALPRAZolam [Xanax 1 MG Tablet] 1 mg PO BID 07/14/17 07/14/17 Diphenoxylate/Atropine [Lomotil 1 tab PO QID PRN 07/14/17 07/14/17 2.5 mg/0.025 mg] Previous Rx's Medication Instructions Recorded Baclofen 20 mg PO HS #0 09/04/16 Furosemide [Lasix] 40 mg PO DAILY PRN #0 09/04/16 Zolpidem [Ambien] 5 mg PO HS PRN #0 09/04/16 Allergies Allergy/AdvReac Type Severity Reaction Status Date / Time Latex, Natural Rubber AdvReac Anaphylaxis Verified 05/22/17 13:05 Limitations: ROS unobtainable due to patients medical condition Past Medical History - Past Medical History Medical history: Reports: cancer, hyperlipidemia, other Surgical history: Reports: other, appendectomy Psychiatric history: Reports: anxiety, bipolar, depression, schizophrenia, previous psychiatric hospitalization [employer] history: Reports: bilateral tubal ligation - Social History Smoking Status: Current every day smoker Smokeless Tobacco Status: No Alcohol use: Reports: none Drug use: Reports: marijuana Physical Exam The patient herself is confused, very groggy, will open her eyes when spoken to but cannot tell me her name, where she is, what year it is. She cannot answer any review of system questions for me. She will follow commands, opens her eyes , but her mouth, 600, squeezes hands bilaterally, wiggles all toes bilaterally. However, when not performing commands, she keeps her eyes closed and appears to be sleeping. She is maintaining her airway currently. - General Limitations: no limitations General appearance: alert - Head Head exam: atraumatic, normocephalic, normal inspection - Eye Eye exam: Present: normal appearance, PERRL, EOMI. Absent: miosis - ENT ENT exam: mucous membranes moist, other (Blue discoloration or tongue, small white granules present on tongue) - Neck Neck exam: Present: normal inspection, full ROM, trachea midline - Respiratory Respiratory exam: Present: normal lung sounds bilaterally - Cardiovascular Cardiovascular exam: Present: regular rate, normal rhythm, normal heart sounds - Abdominal Exam Abdominal exam: Present: soft, Non-Tender. Absent: tenderness, distention, guarding, rebound, rigidity - Extremities Exam Extremities exam: Present: normal inspection, full ROM. Absent: tenderness, pedal edema - Neurological Exam Neurological exam: Present: CN II-XII intact, other (not oriented to person, place, or time. confused, very groggy, will open her eyes when spoken to but cannot tell me her name, where she is, what year it is. She cannot answer any review of system questions for me. She will follow commands, opens her eyes, open her mouth, squeezes hands bilaterally, wiggles all toes bilaterally. However, when not performing commands, she keeps her eyes closed and appears to be sleeping. She is maintaining her airway currently. ). Absent: motor sensory deficit - Psychiatric Psychiatric exam: Present: other - Skin Skin exam: Present: warm, dry, intact, normal color Course Course Narrative: Patient is a 56-year-old female with past medical history of cancer, MS, hyperlipidemia. She presents today via EMS due to altered mental status. Patient lives with family, they are not currently at bedside. The patient herself is confused, very groggy, will open her eyes when spoken to but cannot tell me her name, where she is, what year it is. She cannot answer any review of system questions for me. She will follow commands, opens her eyes, open her mouth, squeezes hands bilaterally, wiggles all toes bilaterally. However, when not performing commands, she keeps her eyes closed and appears to be sleeping. She is maintaining her airway currently. Vitals currently within normal limits on room air. Preemptively put oxygen nasal cannula 2 L on the patient. On exam, patient had blue discoloration of the tongue with white granules on the tongue. When asked if she ate something blue, she states that "it was her pills." She is not able to tell me what pill she took. EMS reported that there was concern that she took trazodone that made her sleepy. We will perform altered mental status workup including CT the head, CT cervical spine, chest x-ray, EKG, basic blood work, urinalysis, ethanol level, urine drug screen. 13:01 patient's is now here. He states that the patient had an episode of altered mental status about a month ago and was told that it was an exacerbation of her MS. He said that last night she was acting fine, he woke up at the middle the night and she was confused and had vomited pills. She got worse this morning and he called EMS. He says that the only thing that she has only make her sleepy or Ambien and trazodone. He is unsure of how much she took or if any other drugs were ingested. 13:45 overall, labs show mild anemia, a KI, Urine drug positive for amphetamines and benzos. Will give fluids 1L NS for KRISHNA. Discussed results with , he states that patient may have prescription adderall at home but he is unsure. Waiting on head CT and cervical spine CT. Discussed with the admission after this for altered mental status. He is agreeable with this plan. 14:23 chest x-ray, head CT, cervical spine CT all negative for any acute abnormality. Patient still remains confused though she is more alert now. We will admit for altered mental status, likely medication overdose, fluids, observation. If patient took AMbien and trazodone, observation will need to be overnight due to long half life. 14:40 Poison control called, spoke with Gloria, and she recommended observation for at least 6-8 hours or until return to baseline, add on tylenol and aspirin levels. Otherwise, did not recommend any other addition to current workup. Dr. Lindsay accepted patient for admission. Chest X-Ray 07/14/17 12:22 IMPRESSION: 1. No acute radiographic finding in the chest. D/ / Guillermo Lovell MD / Guillermo Lovell MD Interpreting Provider: Guillermo Lovell MD Head CT 07/14/17 12:22 IMPRESSION: No acute intracranial abnormality. Otherwise stable CT. D/ / Charly Senior MD / Charly Senior MD Interpreting Provider: Charly Senior MD Cervical Spine CT 07/14/17 12:24 IMPRESSION: 1. Reversal of the normal cervical lordosis, without acute fracture or subluxation. 2. Stable mild degenerative anterolisthesis of C4. D/ / Efren Baum MD / Efren Baum MD Interpreting Provider: Efren Baum MD Vital Signs Temperature 98.7 F 07/14/17 12:16 Pulse Rate 71 07/14/17 12:16 Respiratory Rate 20 07/14/17 12:16 Blood Pressure 133/78 07/14/17 12:16 O2 Sat by Pulse Oximetry 98 07/14/17 12:16 Temperature 98.7 F 07/14/17 12:16 Pulse Rate 72 07/14/17 14:29 Respiratory Rate 14 07/14/17 14:29 Blood Pressure 110/66 07/14/17 14:29 O2 Sat by Pulse Oximetry 97 07/14/17 14:29 Oxygen Delivery Oxygen Delivery Nasal Cannula Altered Mental Status - MDM Narrative Medical decision making narrative: overall, labs show mild anemia, a KI, Urine drug positive for amphetamines and benzos. Will give fluids 1L NS for KRISHNA. Discussed results with , he states that patient may have prescription adderall at home but he is unsure. States patient may have taken ambien and/or trazodone at home. chest x-ray, head CT, cervical spine CT all negative for any acute abnormality. Patient still remains confused though she is more alert now. We will admit for altered mental status, likely medication overdose, fluids, observation. If patient took AMbien and trazodone, observation will need to be overnight due to long half life. Poison control called, spoke with Gloria, and she recommended observation for at least 6-8 hours or until return to baseline, add on tylenol and aspirin levels. Otherwise, did not recommend any other addition to current workup. Dr. Lindsay accepted patient for admission. - Medical Records Medical records reviewed: Yes I reviewed the patient's medical records. - Lab Data Lab results reviewed: Yes I reviewed the patient's lab results. Result diagrams: 07/14/17 12:49 07/14/17 12:49 Lab Results 07/14/17 07/14/17 07/14/17 Range/Units 12:49 12:49 12:49 WBC 8.2 (4.3-11.1) K/mcL RBC 3.78 L (3.82-4.97) M/mcL Hgb 11.2 L (11.5-15.4) g/dL Hct 34.9 L (35.3-44.9) % MCV 92.3 (83.0-100.0) fL MCH 29.6 (28.0-33.3) pg MCHC 32.1 (31.6-35.5) g/dL RDW 13.8 (11.5-14.5) % Plt Count 118 L (140-400) K/mcL MPV 11.2 (9.4-12.4) fL Immature Gran % 0.4 (0-4) % Seg Neutrophils % 81.1 % Lymphocytes % 12.0 % Monocytes % 5.1 % Eosinophils % 1.3 % Basophils % 0.1 % Neutrophils # 6.6 (1.6-8.9) K/mcL Lymphocytes # 1.0 (0.6-4.6) K/mcL Monocytes # 0.4 (0.0-1.3) K/mcL Eosinophils # 0.1 (0.0-0.6) K/mcL Basophils # 0.0 (0.0-0.2) K/mcL PT 11.5 (9.4-12.1) Seconds INR 1.1 APTT 25.8 L (26.0-36.0) Seconds Sodium 143 (136-145) mEq/L Potassium 3.8 (3.5-4.5) mEq/L Chloride 109 (98-109) mEq/L Carbon Dioxide 27 (19-29) mEq/L BUN 13 (7-20) mg/dL Creatinine 1.23 H (0.57-1.11) mg/dL Est GFR ( Amer) 55 L (> 60) Est GFR (Non-Af Amer) 45 L (> 60) BUN/Creatinine Ratio 11 (6-26) Glucose 93 (70-99) mg/dL Calculated Osmolality 296 (280-300) Calcium 8.8 (8.6-10.8) mg/dL Total Bilirubin 0.5 (0.2-1.2) mg/dL Direct Bilirubin 0.2 (0.0-0.5) mg/dL Indirect Bilirubin 0.3 (0.0-1.2) mg/dL AST 8 (5-34) Units/L ALT 13 (0-55) Units/L Alkaline Phosphatase 93 (38-126) Units/L Troponin I (0-0.03) ng/mL Serum Total Protein 5.8 L (6.0-8.3) g/dL Albumin 2.9 L (3.5-5.0) g/dL Globulin 2.9 (2.4-3.5) g/dL Albumin/Globulin Ratio 1.0 L (1.1-2.2) Urine Color (Yellow) Urine Clarity (Clear) Urine pH (5.0-8.0) pH Units Ur Specific [place] (1.010-1.025) Urine Protein (Neg-Trace) mg/dL Urine Glucose (UA) (Normal) mg/dL Urine Ketones (Negative) mg/dL Urine Blood (Negative) Urine Nitrite (Negative) Urine Bilirubin (Negative) Urine Urobilinogen (Normal) mg/dL Ur Leukocyte Esterase (Negative) Ur Culture Indicated? (NO) Urine Opiates Screen (Vdusmu=522) ng/mL Ur Barbiturates Screen (Lkuvtg=930) ng/mL Ur Phencyclidine Scrn (Cutoff=25) ng/mL Ur Amphetamines Screen (Llsbwa=9602) ng/mL U Benzodiazepines Scrn (Dzercp=976) ng/mL Urine Cocaine Screen (Cutoff= 300) ng/mL U Marijuana (THC) Screen (Cutoff = 50) ng/mL Ethyl Alcohol < 10 (0-10) mg/dL 07/14/17 07/14/17 07/14/17 Range/Units 12:49 13:15 13:15 WBC (4.3-11.1) K/mcL RBC (3.82-4.97) M/mcL Hgb (11.5-15.4) g/dL Hct (35.3-44.9) % MCV (83.0-100.0) fL MCH (28.0-33.3) pg MCHC (31.6-35.5) g/dL RDW (11.5-14.5) % Plt Count (140-400) K/mcL MPV (9.4-12.4) fL Immature Gran % (0-4) % Seg Neutrophils % % Lymphocytes % % Monocytes % % Eosinophils % % Basophils % % Neutrophils # (1.6-8.9) K/mcL Lymphocytes # (0.6-4.6) K/mcL Monocytes # (0.0-1.3) K/mcL Eosinophils # (0.0-0.6) K/mcL Basophils # (0.0-0.2) K/mcL PT (9.4-12.1) Seconds INR APTT (26.0-36.0) Seconds Sodium (136-145) mEq/L Potassium (3.5-4.5) mEq/L Chloride (98-109) mEq/L Carbon Dioxide (19-29) mEq/L BUN (7-20) mg/dL Creatinine (0.57-1.11) mg/dL Est GFR ( Amer) (> 60) Est GFR (Non-Af Amer) (> 60) BUN/Creatinine Ratio (6-26) Glucose (70-99) mg/dL Calculated Osmolality (280-300) Calcium (8.6-10.8) mg/dL Total Bilirubin (0.2-1.2) mg/dL Direct Bilirubin (0.0-0.5) mg/dL Indirect Bilirubin (0.0-1.2) mg/dL AST (5-34) Units/L ALT (0-55) Units/L Alkaline Phosphatase (38-126) Units/L Troponin I 0.00 (0-0.03) ng/mL Serum Total Protein (6.0-8.3) g/dL Albumin (3.5-5.0) g/dL Globulin (2.4-3.5) g/dL Albumin/Globulin Ratio (1.1-2.2) Urine Color Yellow (Yellow) Urine Clarity Clear (Clear) Urine pH 6.0 (5.0-8.0) pH Units Ur Specific [place] 1.017 (1.010-1.025) Urine Protein Negative (Neg-Trace) mg/dL Urine Glucose (UA) Normal (Normal) mg/dL Urine Ketones Negative (Negative) mg/dL Urine Blood Negative (Negative) Urine Nitrite Negative (Negative) Urine Bilirubin Negative (Negative) Urine Urobilinogen Normal (Normal) mg/dL Ur Leukocyte Esterase Negative (Negative) Ur Culture Indicated? NO (NO) Urine Opiates Screen Negative (Skkjxe=758) ng/mL Ur Barbiturates Screen Negative (Mctnty=803) ng/mL Ur Phencyclidine Scrn Negative (Cutoff=25) ng/mL Ur Amphetamines Screen Positive H (Fxhgcc=7820) ng/mL U Benzodiazepines Scrn Negative (Nqqidk=819) ng/mL Urine Cocaine Screen Negative (Cutoff= 300) ng/mL U Marijuana (THC) Screen Positive H (Cutoff = 50) ng/mL Ethyl Alcohol (0-10) mg/dL - Radiology Data Radiology results reviewed: Yes I reviewed the patient's radiology results. Chest X-Ray 07/14/17 12:22 IMPRESSION: 1. No acute radiographic finding in the chest. D/ / Guillermo Lovell MD / Guillermo Lovell MD Interpreting Provider: Guillermo Lovell MD Head CT 07/14/17 12:22 IMPRESSION: No acute intracranial abnormality. Otherwise stable CT. D/ / Charly Senior MD / Charly Senior MD Interpreting Provider: Charly Senior MD Cervical Spine CT 07/14/17 12:24 IMPRESSION: 1. Reversal of the normal cervical lordosis, without acute fracture or subluxation. 2. Stable mild degenerative anterolisthesis of C4. D/ / Efren Baum MD / Efren Baum MD Interpreting Provider: Efren Baum MD - EKG Data EKG attestation: Yes I reviewed and interpreted this EKG. EKG results narrative: 07/14/2017 at 12:42. Normal sinus rhythm. Rate 75. NM 187. QRS 91. QTC 402. Mild left axis deviation. No acute ST elevation or depression. TPA Checklist - LKW: 3-4.5 hrs Add. Warnings/Precautions Patient/family understanding: The patient/family members have been counseled and understood the risk, benefit , and alternatives of treatment. [facility] - [place] Situation: Demographics, MOA Background: Presenting Complaint, Relevant PMH, Meds, & Allergies Assessment: Vital Signs, Course and respsone to treatment, Exam Concerns, Patient/Family Expectation, Pertinant Lab Results, Outstanding Labs S.B.A.RDev Report Given to: Dr. Angélica Sylvester Repor Time: 14:42
[2017-07-14 12:56] LABS: Basophils % 0.1 %; Eosinophils # 0.1 K/mcL (0.0-0.6); Eosinophils % 1.3 %; Hematocrit 34.9 % (35.3-44.9); Hemoglobin 11.2 g/dL (11.5-15.4); Immature Granulocytes % 0.4 % (0-4); Mean Corpuscular HGB Conc 32.1 g/dL (31.6-35.5); Mean Corpuscular Hemoglobin 29.6 pg (28.0-33.3); Mean Corpuscular Volume 92.3 fL (83.0-100.0); Mean Platelet Volume 11.2 fL (9.4-12.4); Monocytes # 0.4 K/mcL (0.0-1.3); Monocytes % 5.1 %; Neutrophils # 6.6 K/mcL (1.6-8.9); Platelet Count 118 K/mcL (140-400); Red Blood Count 3.78 M/mcL (3.82-4.97); Red Cell Distribution Width 13.8 % (11.5-14.5); Segmented Neutrophils % 81.1 %
[2017-07-14 13:04] LABS: INR 1.1; Prothrombin Time 11.5 Seconds (9.4-12.1)
[2017-07-14 13:07] LABS: Activated Partial Thrombo Time 25.8 Seconds (26.0-36.0)
[2017-07-14 13:10] LABS: Alanine Aminotransferase 13 Units/L (0-55); Albumin 2.9 g/dL (3.5-5.0); Alkaline Phosphatase 93 Units/L (38-126); Aspartate Amino Transferase 8 Units/L (5-34); BUN/Creatinine Ratio 11 (6-26); Bilirubin,Direct 0.2 mg/dL (0.0-0.5); Bilirubin,Indirect 0.3 mg/dL (0.0-1.2); Bilirubin,Total 0.5 mg/dL (0.2-1.2); Blood Urea Nitrogen 13 mg/dL (7-20); Calcium 8.8 mg/dL (8.6-10.8); Carbon Dioxide 27 mEq/L (19-29); Chloride 109 mEq/L (98-109); Ethanol < 10 mg/dL (0-10); Globulin 2.9 g/dL (2.4-3.5); Glucose 93 mg/dL (70-99); Osmolality,Calculated 296 (280-300); Potassium 3.8 mEq/L (3.5-4.5); Sodium 143 mEq/L (136-145); Total Protein 5.8 g/dL (6.0-8.3); eGFR For African Americans 55 (> 60); eGFR For Non-African Americans 45 (> 60)
[2017-07-14 13:31] LABS: Bilirubin,Urine Negative (Negative); Blood,Urine Negative (Negative); Clarity,Urine Clear (Clear); Color,Urine Yellow (Yellow); Glucose,Urine (UA) Normal (Normal); Ketones,Urine Negative (Negative); Leukocyte Esterase,Urine Negative (Negative); Nitrite,Urine Negative (Negative); Protein,Urine Negative (Neg-Trace); Specific Gravity,Urine 1.017 (1.010-1.025); Urobilinogen,Urine Normal (Normal)
[2017-07-14] MEDS ORDERED: 0.9 % Sodium Chloride 1,000 ML IVC ONE (13:33)
[2017-07-14 13:36] LABS: Amphetamine Screen,Urine Positive ng/mL (Cutoff=1000); Barbiturate Screen,Urine Negative ng/mL (Cutoff=200); Benzodiazepines Screen,Urine Negative ng/mL (Cutoff=200); Cannabinoid Screen,Urine Positive ng/mL (Cutoff = 50); Cocaine Screen,Urine Negative ng/mL (Cutoff= 300); Opiate Screen,Urine Negative ng/mL (Cutoff=300); Phencyclidine Screen,Urine Negative ng/mL (Cutoff=25)
[2017-07-14 14:58] LABS: Acetaminophen < 1.0 mcg/mL (10-30); Salicylate < 5.0 mg/dL (15-30)
[2017-07-14] MEDS ORDERED: Naloxone 0.4 MG/ML INJ IVP PRN (20:01)
[2017-07-14] MEDS ORDERED: Ondansetron 4 MG/2 ML VIAL IVP PRN (20:03)
--- NOTE | 2017-07-14 20:24 | Internal Med History&Physical ---
<Carmen Nuno - Last Filed: 07/14/17 21:36> Date of Encounter: 07/14/17 Time of Encounter: 20:21 Assessment and Plan (1) Acute encephalopathy Current visit: Yes Status: Acute The patient presents with altered mental state-she has a pill fragments in her mouth unsure of what she is ingested. Tox screen was positive for amphetamines as well as marijuana. She also has MS and was recently treated for MS exacerbation. As well as upon assessment appears her pupils are unequal with left sided facial droop. Unsure of her baseline unsure what his causing her altered state. We will obtain stat MRI brain rule out possible infarction Poison control has been notified patient will be monitored overnight with cardiac monitoring as well as SPO2. We will assess neuro status Aspiration precautions-apparently while in MRI patient had large amount of emesis. We did give Zofran as well as placed NG tube there were blue pill fragments as well as green bile approximately 100 mL's in return We will consult neurology (2) KRISHNA (acute kidney injury) Current visit: Yes Status: Acute Creatinine is 1.23 baseline appears to be around 1. Suspect this is prerenal patient has been vomiting as well as she is on NSAID and a diuretic we will give IV fluids overnight and recheck creatinine in a.m. Avoid nephrotoxins-No Nsaids Monitor intake and output daily weights Maintain MAP greater than 60 (3) Multiple sclerosis Current visit: No Status: Chronic Patient has history of multiple sclerosis appears that she does not follow with neurology. She was here on the 9th of this month due to MS exacerbation. She was sent home on a steroid taper. Presently she is altered-unsure if this is related to drug intoxication or MS. We are obtaining MRI. Consult neurology Neuro checks (4) Overdose Current visit: Yes Status: Acute The patient did consume some medications we suspected trazodone as well as possibly Ambien. Unsure if this was intentional ER Did speak with poison control we will monitor overnight and give supportive measures Continue with IV fluids Aspiration precautions Neuro checks Obtain EKG in a.m. present QTc 402 We will consult psychiatry once patient is medically cleared Qualifiers: Encounter type: initial encounter Injury intent: accidental or unintentional Qualified Code(s): T50.901A - Poisoning by unspecified drugs, medicaments and biological substances, accidental (unintentional), initial encounter (5) DVT prophylaxis Current visit: Yes Status: Acute SCD Internal Medicine - H&P: HPI Chief complaint: AMS Admitted From: Emergency Dept Plans for Post Hospital Care: Home History of present illness: Ms. Copeland is a 56 year old female past medical history of hypothyroid hyperlipidemia mood disorder anal cancer MS. Patient is unable to give history due to somnolence/altered mental state there is no family at the bedside. Information is obtained from medical records. According to ER records patient awakened in the middle the night confused and had vomited some pills her mental state had worsened throughout the day and called EMS. Patient's very groggy upon presentation to the ER she had blue discoloration of her tongue when questioned she took she said pills. Has reported to the ER she may have taken Ambien or trazodone. Lab work was obtained and urine tox was positive for amphetamines and marijuana. CT of head cervical spine and chest x-ray were all negative. She did have a KI on lab work. ER physician did speak with poison control who recommended observation and supportive measures. She has been admitted for further workup and evaluation. Upon review of records it appears the patient was here the ninth of this month for altered mental state at that time neurology was consulted. Her altered state was attributed to her MS and she was discharged home on steroid taper. Presently patient appears lethargic she arouses to tactile stimuli. When awake all patient can say is "trazodone" She attempts to follow commands however she falls asleep during assessment. It appears that her right pupil is larger than her left as well as there appears to be a left-sided mouth draw. I did speak with Dr. Zapata concerning findings we will obtain stat MRI to rule out any possible stroke. P Past Med Surg Social Fam HX - Past Medical History Medical history: cancer, hyperlipidemia, other Psychiatric history: anxiety, bipolar, depression, schizophrenia, previous psychiatric hospitalization - Past Surgical History Surgical History: other, appendectomy - Social History Smoking Status: Current every day smoker Smokeless Tobacco Status: No Alcohol use: none Drug use: marijuana - Family History Father Living Status: Hx Family Cardiac Disorders: Yes Hx Family Respiratory Disorders: Yes Mother Living Status: Still Living Internal Medicine - H&P: Meds Atorvastatin [Lipitor] 40 mg PO HS 04/10/15 [History] Sertraline [Zoloft] 100 mg PO DAILY 04/10/15 [History] Albuterol Sulfate [Albuterol Inhaler] 2 puff IH Q4H PRN 09/01/16 [History] Levothyroxine [Synthroid] 112 mcg PO QAM 09/01/16 [History] Meloxicam [Mobic] 15 mg PO DAILY 09/01/16 [History] Potassium Chloride [Klor-Con 10] 20 meq PO BID 09/01/16 [History] Trazodone HCl 200 mg PO HS 09/01/16 [History] Baclofen 20 mg PO HS #0 09/04/16 [Rx] Furosemide [Lasix] 40 mg PO DAILY PRN #0 09/04/16 [Rx] Zolpidem [Ambien] 5 mg PO HS PRN #0 09/04/16 [Rx] Fluticasone Propionate [Flovent Hfa] 1 puff IH BID 06/29/17 [History] Gabapentin [Neurontin] 600 mg PO TID 06/29/17 [History] Mirabegron [Myrbetriq] 50 mg PO DAILY 06/29/17 [History] Pantoprazole Sodium [Protonix] 40 mg PO DAILY 06/29/17 [History] ALPRAZolam [Xanax 1 MG Tablet] 1 mg PO BID 07/14/17 [History] Diphenoxylate/Atropine [Lomotil 2.5 mg/0.025 mg] 1 tab PO QID PRN 07/14/17 [ History] 3 Allergy/AdvReac Type Severity Reaction Status Date / Time Latex, Natural Rubber AdvReac Anaphylaxis Verified 05/22/17 13:05 ROS unobtainable: due to mental status All Systems PM: A 10-system review of systems was performed and is negative for pertinent findings except as documented above in the HPI. - Constitutional Vitals: Temp Pulse Resp BP Pulse Ox 98.4 F 82 18 135/85 100 07/14/17 20:13 07/14/17 20:13 07/14/17 20:13 07/14/17 20:13 07/14/17 20:13 General appearance: Present: A&O X 0 - Head Head exam: Present: atraumatic, normocephalic - Eye Eye exam: Present: conjuntiva pink, sclera anicteric Pupils: Present: unequal Additional comments: Right pupil was 5 mm left pupil is 4mm both are reactive to light - Neck Neck exam general surgery: Present: supple, trachea midline. Absent: lymphadenopathy - Respiratory Respiratory exam: Present: rhonchi. Absent: accessory muscle use, rales, wheezes - Cardiovascular Cardiovascular exam: Present: RRR, +S1, +S2. Absent: diastolic murmur, gallop, rubs, systolic murmur - GI/Abdominal GI/Abdominal exam: Present: normal bowel sounds, soft, no peritoneal signs. Absent: distended, tenderness - Extremities Exam Extremities exam: Present: warm, radial pulses palpable and symmetrical. Absent : calf tenderness, cyanotic, pedal edema - Neurological Exam Neurological exam: Present: facial droop, speech deficit. Absent: pronater drift - Expanded Neurological Exam Neurological exam expanded: Present: expressive aphasia Neuro motor strength exam: LUE: 5, RUE: 5 Coma Scale Eye Opening: To Pain Coma Scale Motor Response: Obeys Commands Coma Scale Verbal Response: Confused Coma Scale Total: 12 - Skin Skin exam: Present: dry, intact Internal Med - H&P Results - Labs CBC & Chem 7: 07/14/17 12:49 07/14/17 12:49 - EKG Data Prior EKG available for review: yes - Diagnostic Studies Other Images Additional comments: Chest X-Ray 07/14/17 12:22 IMPRESSION: 1. No acute radiographic finding in the chest. D/ / Guillermo Lovell MD / Guillermo Lovell MD Interpreting Provider: Guillermo Lovell MD Head CT 07/14/17 12:22 IMPRESSION: No acute intracranial abnormality. Otherwise stable CT. D/ / Charly Senior MD / Charly Senior MD Interpreting Provider: Charly Senior MD Cervical Spine CT 07/14/17 12:24 IMPRESSION: 1. Reversal of the normal cervical lordosis, without acute fracture or subluxation. 2. Stable mild degenerative anterolisthesis of C4. D/ / Efren Baum MD / Efren Baum MD Interpreting Provider: Efren Baum MD <Patrick Gutierrez - Last Filed: 07/15/17 01:15> Date of Encounter: 07/14/17 Internal Medicine - H&P: HPI History of present illness: Ms. Copeland is a 56 year old female All Systems PM: A 10-system review of systems was performed and is negative for pertinent findings except as documented above in the HPI. - Constitutional Vitals: Temp Pulse Resp BP Pulse Ox 98.4 F 82 18 135/85 100 07/14/17 20:13 07/14/17 20:13 07/14/17 20:13 07/14/17 20:13 07/14/17 20:13 Internal Med - H&P Results - Labs CBC & Chem 7: 07/14/17 12:49 07/14/17 12:49 - Attending Attestation I examined this patient and my medical decision-making was reviewed with the SHACTOR HELPER. I agree with the documented findings, disposition and treatment plan as described except to the extent set forth below. I have seen and examined the patient. Patient is a 56-year-old female with history of hyperlipidemia, anxiety, bipolar disorder, depression, schizophrenia and history of cancer. She presents to the ED with altered mental status. Unable to obtain any history from patient as she is drowsy. She is arousable. No family members at bedside. Patient apparently took multiple pills of Ambien and trazodone. CT of the head is negative. MRI brain is negative for acute infarct. Urine screen is positive for amphetamines and marijuana. We will continue IV fluids and supportive care. Patient currently has an NG tube because of several episodes of vomiting. She does have a history of multiple sclerosis. Neurology consult and psychiatry consult pending at this time. Unclear if this is intentional or accidental overdose. CODE STATUS full code. Heart rate 82, temp 98.4, blood pressure 135/85, O2 sat 100% on 2 L nasal cannula. Heart S1-S2 positive. Lungs bilateral good entry no wheezes or crackles. Abdomen soft nontender. Neurological patient is drowsy and somnolent but easily arousable. No obvious focal neurological deficits.
[2017-07-14] MEDS ORDERED: *HR* Promethazine 25 MG/ML VIAL IVP ONE (20:54)
[2017-07-14] MEDS: 0.9 % Sodium Chloride 1,000 ML IVC SCH (22:12)
[2017-07-14] MEDS ORDERED: Furosemide 20 MG TABLET PO PRN (23:50)
[2017-07-15 06:28] LABS: Basophils % 0.2 %; Eosinophils # 0.1 K/mcL (0.0-0.6); Eosinophils % 1.1 %; Hematocrit 34.9 % (35.3-44.9); Hemoglobin 11.1 g/dL (11.5-15.4); Immature Granulocytes % 0.3 % (0-4); Lymphocytes # 0.9 K/mcL (0.6-4.6); Lymphocytes % 13.3 %; Mean Corpuscular HGB Conc 31.8 g/dL (31.6-35.5); Mean Corpuscular Hemoglobin 29.2 pg (28.0-33.3); Mean Corpuscular Volume 91.8 fL (83.0-100.0); Mean Platelet Volume 11.4 fL (9.4-12.4); Monocytes # 0.4 K/mcL (0.0-1.3); Monocytes % 6.7 %; Platelet Count 115 K/mcL (140-400); Red Cell Distribution Width 13.8 % (11.5-14.5); Segmented Neutrophils % 78.4 %
[2017-07-15 06:38] LABS: BUN/Creatinine Ratio 12 (6-26); Blood Urea Nitrogen 10 mg/dL (7-20); Calcium 8.4 mg/dL (8.6-10.8); Carbon Dioxide 25 mEq/L (19-29); Chloride 110 mEq/L (98-109); Glucose 88 mg/dL (70-99); Magnesium 1.5 mg/dL (1.6-2.6); Osmolality,Calculated 290 (280-300); Potassium 3.6 mEq/L (3.5-4.5); Sodium 141 mEq/L (136-145); eGFR For African Americans > 60 (> 60); eGFR For Non-African Americans > 60 (> 60)
--- NOTE | 2017-07-15 08:53 | Internal Med Progress Note ---
Date of Encounter: 07/15/17 Time of Encounter: 08:51 - Assessment and plan (1) Abdominal pain Current Visit: Yes Status: Acute Assessment and plan: possible acute GI bleeding, Patient complaining of nausea vomiting and epigastric pain 5/out of 10 constant since last night and she was placed NG last night draining coffee-ground emesis. I will add protonic drip, I called to Dr. 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 hemoglobin has been stable since last night, will close monitor H&H. Continue nothing by mouth and NG. Qualifiers: Abdominal location: epigastric Qualified Code(s): R10.13 - Epigastric pain (2) Multiple sclerosis Current Visit: No Status: Chronic Assessment and plan: MRI brain results report reviewed, no acute stroke and hemorrhage. Stable MS changes. (3) Altered mental status Current Visit: Yes Status: Acute Assessment and plan: Toxic metabolic encephalopathy, patient was overdosed by trazodone and the urine positive for marijuana,r amphetamines and marijuana. resolved Qualifiers: Altered mental status type: delirium Qualified Code(s): R41.0 - Disorientation, unspecified (4) Overdose Current Visit: Yes Status: Acute Assessment and plan: The patient did take 3 trazodone as well as possibly Ambien. Unsure if this was intentional ER Did speak with poison control we will monitor overnight and give supportive measures Continue with IV fluids Aspiration precautions Neuro checks We will consult psychiatry Qualifiers: Encounter type: initial encounter Injury intent: accidental or unintentional Qualified Code(s): T50.901A - Poisoning by unspecified drugs, medicaments and biological substances, accidental (unintentional), initial encounter (5) Hypothyroid Current Visit: No Status: Chronic Qualifiers: Hypothyroidism type: acquired Qualified Code(s): E03.9 - Hypothyroidism, unspecified - Time Spent With Patient Greater than 35 minutes - Subjective Interval history: Patient was admitted for altered mental status yesterday, now she is alert oriented 3. Patient report she took 3 trazodone, she also compress abdominal pain nausea. NG was placed last night discussed it with nurse, and she has 400 and off coffee-ground emesis. She has mild epigastric tenderness. Discussed the will keep nothing by mouth continue NG. Patient agrees. - Constitutional Vitals: Temp Pulse Resp BP Pulse Ox 98.1 F 82 18 147/81 97 07/15/17 08:37 07/15/17 08:37 07/15/17 08:37 07/15/17 08:37 07/15/17 08:37 CONSTITUTIONAL: patient appears as an age appropriate female in no acute distress. EYES Clear sclerae, bilateral pupils are equal, reactive to light. EMOI. RESPIRATORY: No accessory muscle use, bilateral clear to auscultation, no wheezing, no crackles/rales. CARDIOVASCULAR: Regular heart rate, normal S1 and S2, no murmurs GASTROINTESTINAL: bowel sounds present, soft, mild tenderness to epigastric area MUSCULOSKELETAL: Joints in normal range of motion, no clubbing, no edema, no cyanosis. Bilateral peripheral pulses 2+. NEUROLOGIC: CN II to XII are grossly intact, no focal neurological deficit. General appearance: Present: A&O X 0, A&O X 3, morbidly obese - Head Head exam: Present: atraumatic, normocephalic - Eye Eye exam: Present: PERRL, conjuntiva pink, sclera anicteric Pupils: Present: PERRL - Neck Neck exam general surgery: Present: supple, trachea midline. Absent: lymphadenopathy - Respiratory Respiratory exam: Present: CTAB. Absent: accessory muscle use, rales, rhonchi, wheezes - Cardiovascular Cardiovascular exam: Present: RRR, +S1, +S2. Absent: diastolic murmur, gallop, rubs, systolic murmur - GI/Abdominal GI/Abdominal exam: Present: normal bowel sounds, soft, no peritoneal signs. Absent: distended, tenderness - Extremities Exam Extremities exam: Present: warm, radial pulses palpable and symmetrical. Absent : calf tenderness, cyanotic, pedal edema - Neurological Exam Neurological exam: Present: CN II-XII intact, oriented X3, no focal deficits. Absent: pronater drift, facial droop, speech deficit - Skin Skin exam: Present: dry, intact Internal Medicine: Result - Labs CBC & Chem 7: 07/15/17 06:13 07/15/17 06:13 Labs: Short CBC 07/15/17 Range/Units 06:13 WBC 6.4 (4.3-11.1) K/mcL Hgb 11.1 L (11.5-15.4) g/dL Hct 34.9 L (35.3-44.9) % Plt Count 115 L (140-400) K/mcL Neutrophils # 5.0 (1.6-8.9) K/mcL BMP 07/15/17 06:13 Sodium 141 Potassium 3.6 Chloride 110 H Carbon Dioxide 25 BUN 10 Creatinine 0.81 Glucose 88 Calcium 8.4 L - ABG Interpretation ABG results: PT/INR, D-dimer PT 11.5 Seconds (9.4-12.1) 07/14/17 12:49 Consult Discharge Plan - Plan Referrals: Johnie Farley MD [Primary Care Provider] -
--- NOTE | 2017-07-15 11:52 | Consult Note ---
Date of Encounter: 07/15/17 Time of Encounter: 11:47 Assessment & Recommendation (1) Altered mental status Current visit: Yes Status: Acute Assessment & Recommendation: Based on boyfriend's history do not think the overdose was intentional. Can reevaluate her when her sensorium is more clear. Given that she has multiple medical issues going on now would not start anything for mental health reasons unless an antipsychotic is needed to help with delirium and agitation. If that is the case would use low dose Haldol prn to start. Qualifiers: Altered mental status type: delirium Qualified Code(s): R41.0 - Disorientation, unspecified History of Present Illness Requesting Physician: Sheryl Cordon MD Reason for consult: overdose History of present illness: Ms. Copeland is a 56 year old female who presented with an altered mental status. Vomited pill fragments and is thought to have overdosed on Trazodone. On eval today client is unable to give any information. She is in restraints as an NG tube was just placed for a suspected GI bleed. She appears to be hallucinating and keeps pointing to the foot of her bed. Likely delirious secondary to medical issues. Does not know where she is despite this health science writer orienting her multiple times. Boyfriend came in and stated patient has periods of confusion at home. Reports she takes multiple medications but he does not know names. Aware she takes Trazodone for sleep but he does not think she has mental health issues otherwise. He reports she has never been hospitalized for a mental health reason. He is convinced this was an accident and not a suicide attempt. Client is not able to say one way or the other at this time. CC: Sheryl Cordon MD Past Med Surg Social Fam HX - Past Medical History Medical history: cancer, hyperlipidemia, other - Past Psychiatric History Psychiatric history: Reports: other Past psychiatric history details: Mental health history mostly unknown at this time Family psychiatric history: Unknown Family History of Suicide: Unknown - Past Surgical History Surgical History: other, appendectomy - Social History Smoking Status: Current every day smoker Smokeless Tobacco Status: No Alcohol use: none Drug use: marijuana - Family History Father Living Status: Hx Family Cardiac Disorders: Yes Hx Family Respiratory Disorders: Yes Mother Living Status: Still Living Medications & Allergies Atorvastatin [Lipitor] 40 mg PO HS 04/10/15 [History] Sertraline [Zoloft] 100 mg PO DAILY 04/10/15 [History] Albuterol Sulfate [Albuterol Inhaler] 2 puff IH Q4H PRN 09/01/16 [History] Levothyroxine [Synthroid] 112 mcg PO QAM 09/01/16 [History] Meloxicam [Mobic] 15 mg PO DAILY 09/01/16 [History] Potassium Chloride [Klor-Con 10] 20 meq PO BID 09/01/16 [History] Trazodone HCl 200 mg PO HS 09/01/16 [History] Baclofen 20 mg PO HS #0 09/04/16 [Rx] Furosemide [Lasix] 40 mg PO DAILY PRN #0 09/04/16 [Rx] Zolpidem [Ambien] 5 mg PO HS PRN #0 09/04/16 [Rx] Fluticasone Propionate [Flovent Hfa] 1 puff IH BID 06/29/17 [History] Gabapentin [Neurontin] 600 mg PO TID 06/29/17 [History] Mirabegron [Myrbetriq] 50 mg PO DAILY 06/29/17 [History] Pantoprazole Sodium [Protonix] 40 mg PO DAILY 06/29/17 [History] ALPRAZolam [Xanax 1 MG Tablet] 1 mg PO BID 07/14/17 [History] Diphenoxylate/Atropine [Lomotil 2.5 mg/0.025 mg] 1 tab PO QID PRN 07/14/17 [ History] 3 Allergy/AdvReac Type Severity Reaction Status Date / Time Latex, Natural Rubber AdvReac Anaphylaxis Verified 05/22/17 13:05 Review of Systems Constitutional: Denies: fever, chills, weakness, weight change Eyes: Denies: eye pain, vision change Ears, Nose, Throat: Denies: ear pain, throat pain, dental pain, hearing loss, congestion Cardiovascular: Denies: chest pain, palpitations, dyspnea on exertion Respiratory: Denies: cough, dyspnea, wheezes Gastrointestinal: Denies: abdominal pain, nausea, vomiting, diarrhea, constipation Genitourinary male: Denies: urgency, dysuria, frequency, genital lesions Genitourinary female: Denies: urgency, dysuria, frequency, abnormal menses, dyspareunia Musculoskeletal: Denies: joint swelling, joint pain Integumentary: Denies: rash, lesions, pruritus Neurological: Denies: headache, weakness, numbness, memory loss Endocrine: Denies: fatigue, heat or cold intolerance Hematologic/Lymphatic: Denies: easy bruising, lymphadenopathy Allergic/Immunologic: Denies: urticaria, itchy eyes Mental Status Exam Patient orientation: Yes Person Level of alertness: Other Patient appearance: Disheveled Behavior: agitated Psychomotor activity: Normal Eye contact: Maintains Eye Contact Mood description: Other Affect description: blunted Speech pattern: Normal rate Speech volume: Normal Thought process: Thought Blocking Thought content: Yes Poverty of Content Perceptual disturbances: Yes Reacting to internal stimuli Attention span: Unable to Focus, Unable to Sustain Attention Memory description: Immediate Impaired, Recent Impaired, Remote Impaired Patient reliability: Not Reliable Historian Intelligence estimate: Average Judgment: Limited Insight: Minimal Results - Vital Signs Vital signs: Temp Pulse Resp BP Pulse Ox 98.1 F 82 18 147/81 97 07/15/17 08:37 07/15/17 08:37 07/15/17 08:37 07/15/17 08:37 07/15/17 08:37 - Labs Labs: Laboratory Last Values WBC 6.4 K/mcL (4.3-11.1) 07/15/17 06:13 RBC 3.80 M/mcL (3.82-4.97) L 07/15/17 06:13 Hgb 11.1 g/dL (11.5-15.4) L 07/15/17 06:13 Hct 34.9 % (35.3-44.9) L 07/15/17 06:13 MCV 91.8 fL (83.0-100.0) 07/15/17 06:13 MCH 29.2 pg (28.0-33.3) 07/15/17 06:13 MCHC 31.8 g/dL (31.6-35.5) 07/15/17 06:13 RDW 13.8 % (11.5-14.5) 07/15/17 06:13 Plt Count 115 K/mcL (140-400) L 07/15/17 06:13 MPV 11.4 fL (9.4-12.4) 07/15/17 06:13 Immature Gran % 0.3 % (0-4) 07/15/17 06:13 Seg Neutrophils % 78.4 % 07/15/17 06:13 Lymphocytes % 13.3 % 07/15/17 06:13 Monocytes % 6.7 % 07/15/17 06:13 Eosinophils % 1.1 % 07/15/17 06:13 Basophils % 0.2 % 07/15/17 06:13 Neutrophils # 5.0 K/mcL (1.6-8.9) 07/15/17 06:13 Lymphocytes # 0.9 K/mcL (0.6-4.6) 07/15/17 06:13 Monocytes # 0.4 K/mcL (0.0-1.3) 07/15/17 06:13 Eosinophils # 0.1 K/mcL (0.0-0.6) 07/15/17 06:13 Basophils # 0.0 K/mcL (0.0-0.2) 07/15/17 06:13 PT 11.5 Seconds (9.4-12.1) 07/14/17 12:49 INR 1.1 07/14/17 12:49 APTT 25.8 Seconds (26.0-36.0) L 07/14/17 12:49 Sodium 141 mEq/L (136-145) 07/15/17 06:13 Potassium 3.6 mEq/L (3.5-4.5) 07/15/17 06:13 Chloride 110 mEq/L (98-109) H 07/15/17 06:13 Carbon Dioxide 25 mEq/L (19-29) 07/15/17 06:13 BUN 10 mg/dL (7-20) 07/15/17 06:13 Creatinine 0.81 mg/dL (0.57-1.11) 07/15/17 06:13 Est GFR ( Amer) > 60 (> 60) 07/15/17 06:13 Est GFR (Non-Af Amer) > 60 (> 60) 07/15/17 06:13 BUN/Creatinine Ratio 12 (6-26) 07/15/17 06:13 Glucose 88 mg/dL (70-99) 07/15/17 06:13 POC Glucose 93 (58-89) H 07/15/17 05:14 Calculated Osmolality 290 (280-300) 07/15/17 06:13 Calcium 8.4 mg/dL (8.6-10.8) L 07/15/17 06:13 Magnesium 1.5 mg/dL (1.6-2.6) L 07/15/17 06:13 Total Bilirubin 0.5 mg/dL (0.2-1.2) 07/14/17 12:49 Direct Bilirubin 0.2 mg/dL (0.0-0.5) 07/14/17 12:49 Indirect Bilirubin 0.3 mg/dL (0.0-1.2) 07/14/17 12:49 AST 8 Units/L (5-34) 07/14/17 12:49 ALT 13 Units/L (0-55) 07/14/17 12:49 Alkaline Phosphatase 93 Units/L (38-126) 07/14/17 12:49 Troponin I 0.00 ng/mL (0-0.03) 07/14/17 12:49 Serum Total Protein 5.8 g/dL (6.0-8.3) L 07/14/17 12:49 Albumin 2.9 g/dL (3.5-5.0) L 07/14/17 12:49 Globulin 2.9 g/dL (2.4-3.5) 07/14/17 12:49 Albumin/Globulin Ratio 1.0 (1.1-2.2) L 07/14/17 12:49 Urine Color Yellow (Yellow) 07/14/17 13:15 Urine Clarity Clear (Clear) 07/14/17 13:15 Urine pH 6.0 pH Units (5.0-8.0) 07/14/17 13:15 Ur Specific [place] 1.017 (1.010-1.025) 07/14/17 13:15 Urine Protein Negative mg/dL (Neg-Trace) 07/14/17 13:15 Urine Glucose (UA) Normal mg/dL (Normal) 07/14/17 13:15 Urine Ketones Negative mg/dL (Negative) 07/14/17 13:15 Urine Blood Negative (Negative) 07/14/17 13:15 Urine Nitrite Negative (Negative) 07/14/17 13:15 Urine Bilirubin Negative (Negative) 07/14/17 13:15 Urine Urobilinogen Normal mg/dL (Normal) 07/14/17 13:15 Ur Leukocyte Esterase Negative (Negative) 07/14/17 13:15 Ur Culture Indicated? NO (NO) 07/14/17 13:15 Salicylates < 5.0 mg/dL (15-30) L 07/14/17 12:49 Urine Opiates Screen Negative ng/mL (Kyqdkh=283) 07/14/17 13:15 Acetaminophen < 1.0 mcg/mL (10-30) L 07/14/17 12:49 Ur Barbiturates Screen Negative ng/mL (Zhllbs=798) 07/14/17 13:15 Ur Phencyclidine Scrn Negative ng/mL (Cutoff=25) 07/14/17 13:15 Ur Amphetamines Screen Positive ng/mL (Jpopgh=6286) H 07/14/17 13:15 U Benzodiazepines Scrn Negative ng/mL (Qxbhug=886) 07/14/17 13:15 Urine Cocaine Screen Negative ng/mL (Cutoff= 300) 07/14/17 13:15 U Marijuana (THC) Screen Positive ng/mL (Cutoff = 50) H 07/14/17 13:15 Ethyl Alcohol < 10 mg/dL (0-10) 07/14/17 12:49 Consult Discharge Plan - Plan Referrals: Johnie Farley MD [Primary Care Provider] -
[2017-07-15] MEDS: 0.9 % Sodium Chloride 1,000 ML IVC SCH ×2 (12:10→22:19)
--- NOTE | 2017-07-15 12:21 | General Surgery Consult Note ---
Date of Encounter: 07/15/17 Time of Encounter: 12:18 Assessment and Plan (1) Upper GI bleed Current Visit: Yes Status: Acute 56F admitted for possible overdose on trazadone found to red drainage after NG placement, concern for UGI bleeding source - NPO - IVF - trend h/h - PPI gtt - hold anticoagulation and chemical dvt prophlyaxis - no acute intervention; if she becomes symptomatic, then will proceed with EGD History of Present Illness Consult date: 07/15/17 Reason for consult: other (UGIB) History of present illness: 56F who was found to have coffee ground drainage after NG tube placement. Unable to get history from patient due to mental status. She was admitted for altered mental status. Believed to have possibly attempted overdose on trazadone. Had an episode of vomiting resulting in NG tube placement. Surgery was consulted for recommendations for UGIB. Past Med Surg Social Fam HX - Past Medical History Medical history: cancer, hyperlipidemia, other Psychiatric history: other - Past Surgical History Surgical History: other, appendectomy - Social History Smoking Status: Current every day smoker Smokeless Tobacco Status: No Alcohol use: none Drug use: marijuana - Family History Father Living Status: Hx Family Cardiac Disorders: Yes Hx Family Respiratory Disorders: Yes Mother Living Status: Still Living Medications and Allergies Atorvastatin [Lipitor] 40 mg PO HS 04/10/15 [History] Sertraline [Zoloft] 100 mg PO DAILY 04/10/15 [History] Albuterol Sulfate [Albuterol Inhaler] 2 puff IH Q4H PRN 09/01/16 [History] Levothyroxine [Synthroid] 112 mcg PO QAM 09/01/16 [History] Meloxicam [Mobic] 15 mg PO DAILY 09/01/16 [History] Potassium Chloride [Klor-Con 10] 20 meq PO BID 09/01/16 [History] Trazodone HCl 200 mg PO HS 09/01/16 [History] Baclofen 20 mg PO HS #0 09/04/16 [Rx] Furosemide [Lasix] 40 mg PO DAILY PRN #0 09/04/16 [Rx] Zolpidem [Ambien] 5 mg PO HS PRN #0 09/04/16 [Rx] Fluticasone Propionate [Flovent Hfa] 1 puff IH BID 06/29/17 [History] Gabapentin [Neurontin] 600 mg PO TID 06/29/17 [History] Mirabegron [Myrbetriq] 50 mg PO DAILY 06/29/17 [History] Pantoprazole Sodium [Protonix] 40 mg PO DAILY 06/29/17 [History] ALPRAZolam [Xanax 1 MG Tablet] 1 mg PO BID 07/14/17 [History] Diphenoxylate/Atropine [Lomotil 2.5 mg/0.025 mg] 1 tab PO QID PRN 07/14/17 [ History] 3 Allergy/AdvReac Type Severity Reaction Status Date / Time Latex, Natural Rubber AdvReac Anaphylaxis Verified 05/22/17 13:05 Review of Systems All systems PM: A 10-system review of systems was performed and is negative for pertinent findings except as documented above in the HPI. General Surgery Exam Initial Vital Signs Temp Pulse Resp BP Pulse Ox 98.7 F 71 20 133/78 98 07/14/17 12:16 07/14/17 12:16 07/14/17 12:16 07/14/17 12:16 07/14/17 12:16 - General physical appearance well developed, well nourished, other (delirius) - Eyes other (no scleral icterus) - ENT normocephalic - Respiratory normal expansion, normal respiratory effort - Cardiovascular Cardiovascular exam: Present: RRR - Abdomen Abdomen general surgery: Present: soft (non distended; ) - Integumentary Integumentary general surgery: Present: warm and dry - Neurologic Present: CN 2-12 grossly intact - Psychiatric Psychiatric general surgery: Present: other (delirius) Exam Initial Vital Signs Temp Pulse Resp BP Pulse Ox 98.7 F 71 20 133/78 98 07/14/17 12:16 07/14/17 12:16 07/14/17 12:16 07/14/17 12:16 07/14/17 12:16 Results - Labs 07/15/17 06:13 07/15/17 06:13 Abnormal lab results RBC 3.80 M/mcL (3.82-4.97) L 07/15/17 06:13 Hgb 11.1 g/dL (11.5-15.4) L 07/15/17 06:13 Hct 34.9 % (35.3-44.9) L 07/15/17 06:13 Plt Count 115 K/mcL (140-400) L 07/15/17 06:13 APTT 25.8 Seconds (26.0-36.0) L 07/14/17 12:49 Chloride 110 mEq/L (98-109) H 07/15/17 06:13 POC Glucose 93 (58-89) H 07/15/17 05:14 Calcium 8.4 mg/dL (8.6-10.8) L 07/15/17 06:13 Magnesium 1.5 mg/dL (1.6-2.6) L 07/15/17 06:13 Serum Total Protein 5.8 g/dL (6.0-8.3) L 07/14/17 12:49 Albumin 2.9 g/dL (3.5-5.0) L 07/14/17 12:49 Albumin/Globulin Ratio 1.0 (1.1-2.2) L 07/14/17 12:49 Salicylates < 5.0 mg/dL (15-30) L 07/14/17 12:49 Acetaminophen < 1.0 mcg/mL (10-30) L 07/14/17 12:49 Ur Amphetamines Screen Positive ng/mL ([id number]) H 07/14/17 13:15 U Marijuana (THC) Screen Positive ng/mL (Cutoff = 50) H 07/14/17 13:15 Diabetes panel 07/15/17 Range/Units 06:13 Sodium 141 (136-145) mEq/L Potassium 3.6 (3.5-4.5) mEq/L Chloride 110 H (98-109) mEq/L Carbon Dioxide 25 (19-29) mEq/L BUN 10 (7-20) mg/dL Creatinine 0.81 (0.57-1.11) mg/dL Glucose 88 (70-99) mg/dL Calcium 8.4 L (8.6-10.8) mg/dL Calcium panel 07/15/17 Range/Units 06:13 Calcium 8.4 L (8.6-10.8) mg/dL Pituitary panel 07/15/17 Range/Units 06:13 Sodium 141 (136-145) mEq/L Potassium 3.6 (3.5-4.5) mEq/L Chloride 110 H (98-109) mEq/L Carbon Dioxide 25 (19-29) mEq/L BUN 10 (7-20) mg/dL Creatinine 0.81 (0.57-1.11) mg/dL Glucose 88 (70-99) mg/dL Calcium 8.4 L (8.6-10.8) mg/dL Adrenal panel 07/15/17 Range/Units 06:13 Sodium 141 (136-145) mEq/L Potassium 3.6 (3.5-4.5) mEq/L Chloride 110 H (98-109) mEq/L Carbon Dioxide 25 (19-29) mEq/L BUN 10 (7-20) mg/dL Creatinine 0.81 (0.57-1.11) mg/dL Glucose 88 (70-99) mg/dL Calcium 8.4 L (8.6-10.8) mg/dL All other labs normal. Consult Discharge Plan - Plan Referrals: Johnie Farley MD [Primary Care Provider] -
[2017-07-15] MEDS: Pantoprazole 80 MG in 0.9 % Sodium Chloride 250 ML IVC SCH ×2 (12:39→22:36)
--- NOTE | 2017-07-15 16:31 | Neurology - Consult Note ---
Date of Encounter: 07/15/17 Time of Encounter: 16:26 Assessment and Plan (1) Altered mental status Current Visit: Yes Status: Acute At this juncture I am told by nursing that her mental status has however is not back to baseline. I would not however expect an MS exacerbation to result in an acute mental status change such as this. Apparently there may have been an overdose on her trazodone, amphetamines and marijuana were also found on board. Her MRI scan of the brain is stable and does not reveal any evidence of an acute infarct and the MS plaques. He be unchanged in comparison to the previous MRI of the brain completed in January of this year. I will reassess her tomorrow. At this point I do not feel any other neurologic assessment or testing is necessary. Qualifiers: Altered mental status type: delirium Qualified Code(s): R41.0 - Disorientation, unspecified History of Present Illness HPI: Ms. Copeland is a 56 year old female who is known to me due to a previous history of multiple sclerosis, but has been lost to follow-up since 2011 and is now being seen secondary to mental status changes. History is scant however she was admitted acutely for mental status changes and is suspected that she had pill fragments in her mouth. She also had coffee-ground emesis. She has urine tox screen positive for marijuana as well as amphetamines. And it is suspected that she may have overdosed on her trazodone. Whether this was incidental or intentional is not known at this time. She is awake but confused she speaks with loose association, she follows some commands and not others. MRI scan of the brain does reveal deep white matter lesions consistent with MS plaques however reveals no evidence of an acute cerebral infarct. Past Med Surg Social Fam HX - Past Medical History Medical history: cancer, hyperlipidemia, other Psychiatric history: other - Past Surgical History Surgical History: other, appendectomy - Social History Smoking Status: Current every day smoker Smokeless Tobacco Status: No Alcohol use: none Drug use: marijuana - Family History Father Living Status: Hx Family Cardiac Disorders: Yes Hx Family Respiratory Disorders: Yes Mother Living Status: Still Living Medications and Allergies Atorvastatin [Lipitor] 40 mg PO HS 04/10/15 [History] Sertraline [Zoloft] 100 mg PO DAILY 04/10/15 [History] Albuterol Sulfate [Albuterol Inhaler] 2 puff IH Q4H PRN 09/01/16 [History] Levothyroxine [Synthroid] 112 mcg PO QAM 09/01/16 [History] Meloxicam [Mobic] 15 mg PO DAILY 09/01/16 [History] Potassium Chloride [Klor-Con 10] 20 meq PO BID 09/01/16 [History] Trazodone HCl 200 mg PO HS 09/01/16 [History] Baclofen 20 mg PO HS #0 09/04/16 [Rx] Furosemide [Lasix] 40 mg PO DAILY PRN #0 09/04/16 [Rx] Zolpidem [Ambien] 5 mg PO HS PRN #0 09/04/16 [Rx] Fluticasone Propionate [Flovent Hfa] 1 puff IH BID 06/29/17 [History] Gabapentin [Neurontin] 600 mg PO TID 06/29/17 [History] Mirabegron [Myrbetriq] 50 mg PO DAILY 06/29/17 [History] Pantoprazole Sodium [Protonix] 40 mg PO DAILY 06/29/17 [History] ALPRAZolam [Xanax 1 MG Tablet] 1 mg PO BID 07/14/17 [History] Diphenoxylate/Atropine [Lomotil 2.5 mg/0.025 mg] 1 tab PO QID PRN 07/14/17 [ History] 3 Allergy/AdvReac Type Severity Reaction Status Date / Time Latex, Natural Rubber AdvReac Anaphylaxis Verified 05/22/17 13:05 ROS unobtainable: due to mental status All Systems: A 10-system review of systems was performed and is negative for pertinent findings except as documented above in the HPI. Physical Examination - Vital Signs Vital Signs: Initial Vital Signs Temp Pulse Resp BP Pulse Ox 98.7 F 71 20 133/78 98 07/14/17 12:16 07/14/17 12:16 07/14/17 12:16 07/14/17 12:16 07/14/17 12:16 - Exam Exam: Neurologic examination is performed and find the following: Cerebral functions-she is awake she makes eye contact, however she is confused. She knows the from the past however she cannot state specifically how she knows me. She seems to have trouble retrieving accurate information from the past. Her speech is fluent however she cannot exactly tell me why she is here. She sometimes speaks with loose association. At this time however she is not lethargic. She follows some simple commands however is confused with others. Cranial nerves II through XII are intact. Motor exam finds normal tone of the upper and lower extremities throughout. She is difficult to examine any normal traditional manner because she does not consistently follow commands. No involuntary movements or atrophy are identified. Sensory examination is difficult in a confused individual. Deep tendon reflexes-no Babinski, no clonus. Deep tendon reflexes are diminished throughout. Cerebellar exam finds no nystagmus, she performs finger to nose without difficulty. Results - Laboratory Findings CBC and BMP: 07/15/17 06:13 07/15/17 06:13 Abnormal lab findings: Abnormal lab results RBC 3.80 M/mcL (3.82-4.97) L 07/15/17 06:13 Hgb 11.1 g/dL (11.5-15.4) L 07/15/17 06:13 Hct 34.9 % (35.3-44.9) L 07/15/17 06:13 Plt Count 115 K/mcL (140-400) L 07/15/17 06:13 APTT 25.8 Seconds (26.0-36.0) L 07/14/17 12:49 Chloride 110 mEq/L (98-109) H 07/15/17 06:13 POC Glucose 93 (58-89) H 07/15/17 05:14 Calcium 8.4 mg/dL (8.6-10.8) L 07/15/17 06:13 Magnesium 1.5 mg/dL (1.6-2.6) L 07/15/17 06:13 Serum Total Protein 5.8 g/dL (6.0-8.3) L 07/14/17 12:49 Albumin 2.9 g/dL (3.5-5.0) L 07/14/17 12:49 Albumin/Globulin Ratio 1.0 (1.1-2.2) L 07/14/17 12:49 Salicylates < 5.0 mg/dL (15-30) L 07/14/17 12:49 Acetaminophen < 1.0 mcg/mL (10-30) L 07/14/17 12:49 Ur Amphetamines Screen Positive ng/mL (Culobj=[id number]) H 07/14/17 13:15 U Marijuana (THC) Screen Positive ng/mL (Cutoff = 50) H 07/14/17 13:15 Consult Discharge Plan - Plan Referrals: Johnie Farley MD [Primary Care Provider] -
[2017-07-16] MEDS ORDERED: Ketorolac 30 MG/ML VIAL IVP ONE (04:24)
[2017-07-16 07:55] LABS: Basophils % 0.2 %; Eosinophils # 0.1 K/mcL (0.0-0.6); Eosinophils % 0.6 %; Hematocrit 37.1 % (35.3-44.9); Hemoglobin 11.8 g/dL (11.5-15.4); Immature Granulocytes % 0.2 % (0-4); Lymphocytes # 0.6 K/mcL (0.6-4.6); Lymphocytes % 7.9 %; Mean Corpuscular HGB Conc 31.8 g/dL (31.6-35.5); Mean Corpuscular Hemoglobin 29.4 pg (28.0-33.3); Mean Corpuscular Volume 92.3 fL (83.0-100.0); Mean Platelet Volume 11.4 fL (9.4-12.4); Monocytes # 0.4 K/mcL (0.0-1.3); Monocytes % 5.4 %; Platelet Count 106 K/mcL (140-400); Red Blood Count 4.02 M/mcL (3.82-4.97); Red Cell Distribution Width 13.4 % (11.5-14.5); Segmented Neutrophils % 85.7 %
[2017-07-16 08:12] LABS: BUN/Creatinine Ratio 14 (6-26); Blood Urea Nitrogen 11 mg/dL (7-20); Calcium 8.5 mg/dL (8.6-10.8); Carbon Dioxide 23 mEq/L (19-29); Chloride 112 mEq/L (98-109); Glucose 99 mg/dL (70-99); Osmolality,Calculated 293 (280-300); Potassium 4.2 mEq/L (3.5-4.5); Sodium 142 mEq/L (136-145); eGFR For African Americans > 60 (> 60); eGFR For Non-African Americans > 60 (> 60)
[2017-07-16 09:16] LABS: Magnesium 2.5 mg/dL (1.6-2.6)
[2017-07-16] MEDS ORDERED: *HR* Midazolam HCl 5 MG/5 ML VIAL IVP ONE (11:22)
[2017-07-16] MEDS ORDERED: *HR* FentaNYL (PF) 100 MCG/2 ML VIAL ONE (11:23)
--- NOTE | 2017-07-16 11:30 | General Surgery Progress Note ---
Date of Encounter: 07/16/17 Time of Encounter: 11:28 - Assessment and Plan (1) Upper GI bleed Current Visit: Yes Status: Acute 56F with concern for UGIB after NG tube placement; currently with bilious drainage and stable hct; - N PO - EGD today to eval possible source, even if not bleeding presently - IVF - cares per primary team Subjective Patient reports: no new complaints, feels better, other (no blood in NG drainage ; only biliious drainage) Objective Vital Signs - Last 8 Hours Temp Pulse Resp BP Pulse Ox 07/16/17 10:48 97.5 F L 86 14 123/79 96 07/16/17 07:13 97.6 F 78 18 155/93 100 07/16/17 05:30 98.4 F 69 17 144/90 100 Intake and Output 07/15/17 07/16/17 07/16/17 23:59 07:59 15:59 Intake Total 1250.0 / 1250.0 Output Total 1300 / 1300 0 / 0 50 / 50 Balance -50.0 / -50.0 0 / 0 -50 / -50 Intake: IV Fluids 1250.0 / 1250.0 0.9 % Sodium Chloride 1,000 ML 1000 / 1000 @ 100 mls/hr IVC .Q10H [facility] Rx#: [id number] Protonix 80 MG In 0.9 % Sodium 250.0 / 250.0 Chloride 250 ML @ 25 mls/hr IVC .Q10H [facility] Rx#:[id number] Output: Urine 0 / 0 0 / 0 Gastric Drainage 1300 / 1300 50 / 50 Left Nare 650 / 650 50 / 50 Other: Meal NPO Stool Size Large Large Stool Consistency soft loose Stool Color Brown Brown # Urine Diapers 1 1 # Bowel Movement Diapers 1 Weight 107.5 kg Blood Glucose* 96 105 Patient Weight 07/16/17 23:59 Weight 107.5 kg - General physical appearance well developed, well nourished, no distress - Respiratory normal expansion, normal respiratory effort - Cardiovascular Cardiovascular exam: Present: RRR - Abdomen Abdomen: Present: soft, non tender - Integumentary no rash - Neurologic CN 2-12 grossly intact - Psychiatric oriented to time, oriented to person, oriented to place - Labs 07/16/17 07:31 07/16/17 07:31 Diabetes panel 07/16/17 Range/Units 07:31 Sodium 142 (136-145) mEq/L Potassium 4.2 (3.5-4.5) mEq/L Chloride 112 H (98-109) mEq/L Carbon Dioxide 23 (19-29) mEq/L BUN 11 (7-20) mg/dL Creatinine 0.80 (0.57-1.11) mg/dL Glucose 99 (70-99) mg/dL Calcium 8.5 L (8.6-10.8) mg/dL Calcium panel 07/16/17 Range/Units 07:31 Calcium 8.5 L (8.6-10.8) mg/dL Pituitary panel 07/16/17 Range/Units 07:31 Sodium 142 (136-145) mEq/L Potassium 4.2 (3.5-4.5) mEq/L Chloride 112 H (98-109) mEq/L Carbon Dioxide 23 (19-29) mEq/L BUN 11 (7-20) mg/dL Creatinine 0.80 (0.57-1.11) mg/dL Glucose 99 (70-99) mg/dL Calcium 8.5 L (8.6-10.8) mg/dL Adrenal panel 07/16/17 Range/Units 07:31 Sodium 142 (136-145) mEq/L Potassium 4.2 (3.5-4.5) mEq/L Chloride 112 H (98-109) mEq/L Carbon Dioxide 23 (19-29) mEq/L BUN 11 (7-20) mg/dL Creatinine 0.80 (0.57-1.11) mg/dL Glucose 99 (70-99) mg/dL Calcium 8.5 L (8.6-10.8) mg/dL - VTE Documentation of Mechanical Device: Intermittent pneumatic compression device Consult Discharge Plan - Plan Referrals: Johnie Farley MD [Primary Care Provider] -
[2017-07-16] MEDS ORDERED: *HR* Promethazine 25 MG/ML VIAL IVP ONE (11:31)
--- NOTE | 2017-07-16 11:31 | Pre-Sedation Evaluation ---
Pre-sedation evaluation - Pre-sedation checklist Date of procedure: 07/16/17 Procedure: EGD Recent Vitals: Last Vital Signs Temp 97.5 F L 07/16/17 10:48 Pulse 86 07/16/17 10:48 Resp 14 07/16/17 10:48 BP 123/79 07/16/17 10:48 Pulse Ox 96 07/16/17 10:48 H&P (including ROS) documented in medical record: Yes Previous reaction to sedatives/anesthetics: No Dietary Status: NPO after Midnight Dentition: No loose teeth or bridges ASA Classification *see protocol: CLASS II-Mild systemic disease Plan of Care: Pt appropriate candidate for procedure/moderate/conscious sedation
[2017-07-16] MEDS ORDERED: 0.9 % Sodium Chloride 1,000 ML IVC SCH (12:00)
[2017-07-16] MEDS: *HR* Midazolam HCl 5 MG/5 ML VIAL IVP ONE ×2 (12:00→12:10)
[2017-07-16] MEDS: *HR* FentaNYL (PF) 100 MCG/2 ML VIAL IVP ONE ×2 (12:00→12:10)
[2017-07-16] MEDS: Pantoprazole 80 MG in 0.9 % Sodium Chloride 250 ML IVC SCH (12:44)
--- NOTE | 2017-07-16 16:03 | Internal Med Progress Note ---
Date of Encounter: 07/16/17 Time of Encounter: 16:01 - Assessment and plan (1) Abdominal pain Current Visit: Yes Status: Acute Assessment and plan: possible acute GI bleeding, had EGD today, linear ulceration; s/p biopsy, tolerating clear, continue PPI folow up with Haresh Glover in 2 weeks Qualifiers: Abdominal location: epigastric Qualified Code(s): R10.13 - Epigastric pain (2) Multiple sclerosis Current Visit: No Status: Chronic Assessment and plan: MRI brain results report reviewed, no acute stroke and hemorrhage. Stable MS changes. consult pT and OT (3) Altered mental status Current Visit: Yes Status: Acute Assessment and plan: Toxic metabolic encephalopathy, patient was overdosed by trazodone and the urine positive for marijuana,r amphetamines and marijuana. resolved Qualifiers: Altered mental status type: delirium Qualified Code(s): R41.0 - Disorientation, unspecified (4) Overdose Current Visit: Yes Status: Acute Assessment and plan: The patient did take 3 trazodone as well as possibly Ambien. Unsure if this was intentional ER Did speak with poison control we will monitor overnight and give supportive measures psychiatry consult appreciated, not intentional. Qualifiers: Encounter type: initial encounter Injury intent: accidental or unintentional Qualified Code(s): T50.901A - Poisoning by unspecified drugs, medicaments and biological substances, accidental (unintentional), initial encounter (5) Hypothyroid Current Visit: No Status: Chronic Assessment and plan: contineu home meds Qualifiers: Hypothyroidism type: acquired Qualified Code(s): E03.9 - Hypothyroidism, unspecified - Time Spent With Patient 25 - 35 minutes - Subjective Interval history: Patient was admitted for altered mental status on 07/14, resolved and back to the baseline. she is alert oriented 3. Patient report she took 3 trazodone, not intional. She had EGD done.linear ulceration; s/p biopsy. she is tolerating liquids, follow up with Haresh Glover in 2 weeks - Constitutional Vitals: Temp Pulse Resp BP Pulse Ox 97.7 F 65 16 141/85 100 07/16/17 13:27 07/16/17 13:27 07/16/17 13:27 07/16/17 13:27 07/16/17 13:27 CONSTITUTIONAL: patient appears as an age appropriate female in no acute distress. EYES Clear sclerae, bilateral pupils are equal, reactive to light. EMOI. RESPIRATORY: No accessory muscle use, bilateral clear to auscultation, no wheezing, no crackles/rales. CARDIOVASCULAR: Regular heart rate, normal S1 and S2, no murmurs GASTROINTESTINAL: bowel sounds present, soft, no tenderness. MUSCULOSKELETAL: Joints in normal range of motion, no clubbing, no edema, no cyanosis. Bilateral peripheral pulses 2+. NEUROLOGIC: CN II to XII are grossly intact, no focal neurological deficit. General appearance: Present: A&O X 0, A&O X 3, morbidly obese Internal Medicine: Result - Labs CBC & Chem 7: 07/16/17 07:31 07/16/17 07:31 Labs: Short CBC 07/16/17 Range/Units 07:31 WBC 8.1 (4.3-11.1) K/mcL Hgb 11.8 (11.5-15.4) g/dL Hct 37.1 (35.3-44.9) % Plt Count 106 L (140-400) K/mcL Neutrophils # 7.0 (1.6-8.9) K/mcL BMP 07/16/17 07:31 Sodium 142 Potassium 4.2 Chloride 112 H Carbon Dioxide 23 BUN 11 Creatinine 0.80 Glucose 99 Calcium 8.5 L - ABG Interpretation ABG results: PT/INR, D-dimer PT 11.5 Seconds (9.4-12.1) 07/14/17 12:49 - VTE Documentation of Mechanical Device: Intermittent pneumatic compression device Consult Discharge Plan - Plan Referrals: Johnie Farley MD [Primary Care Provider] -
[2017-07-16] MEDS: Gabapentin 300 MG CAPSULE PO SCH (20:33)
[2017-07-17 05:52] LABS: Basophils % 0.4 %; Eosinophils # 0.2 K/mcL (0.0-0.6); Eosinophils % 2.3 %; Hematocrit 35.6 % (35.3-44.9); Hemoglobin 11.5 g/dL (11.5-15.4); Immature Granulocytes % 0.3 % (0-4); Lymphocytes # 0.8 K/mcL (0.6-4.6); Lymphocytes % 12.1 %; Mean Corpuscular HGB Conc 32.3 g/dL (31.6-35.5); Mean Corpuscular Hemoglobin 29.6 pg (28.0-33.3); Mean Corpuscular Volume 91.8 fL (83.0-100.0); Mean Platelet Volume 11.6 fL (9.4-12.4); Monocytes # 0.5 K/mcL (0.0-1.3); Monocytes % 7.1 %; Neutrophils # 5.4 K/mcL (1.6-8.9); Platelet Count 105 K/mcL (140-400); Red Blood Count 3.88 M/mcL (3.82-4.97); Red Cell Distribution Width 13.7 % (11.5-14.5); Segmented Neutrophils % 77.8 %
[2017-07-17 06:05] LABS: BUN/Creatinine Ratio 15 (6-26); Blood Urea Nitrogen 12 mg/dL (7-20); Carbon Dioxide 24 mEq/L (19-29); Chloride 109 mEq/L (98-109); Glucose 106 mg/dL (70-99); Osmolality,Calculated 288 (280-300); Potassium 3.6 mEq/L (3.5-4.5); Sodium 139 mEq/L (136-145); eGFR For African Americans > 60 (> 60); eGFR For Non-African Americans > 60 (> 60)
[2017-07-17] MEDS ORDERED: Acetaminophen 325 MG TABLET PO PRN (07:32)
[2017-07-17 07:45] VITALS: BP 167/98
--- NOTE | 2017-07-17 08:35 | Internal Med Progress Note ---
Date of Encounter: 07/17/17 Time of Encounter: 08:30 - Assessment and plan (1) Overdose Current Visit: Yes Status: Acute Assessment and plan: Patient initially presented with AMS; vomited pill fragments; concern for possible trazodone overdose. -Patient reports that this happened several months ago. -Urine tox was positive for amphetamines and marijuana -Psychiatry was consulted; per psychiatry; likely not intentional -Patient's boyfriend reports that she has episodes of confusion at home. Plan: -Patient may need home health to ensure proper compliance with medications. (2) Multiple sclerosis Current Visit: No Status: Chronic (3) Hypothyroid Current Visit: No Status: Chronic Qualifiers: Hypothyroidism type: acquired Qualified Code(s): E03.9 - Hypothyroidism, unspecified (4) Upper GI bleed Current Visit: Yes Status: Acute - Subjective Interval history: Patient was seen and examined at bedside this morning. She reports that she is feeling much better than she did on admission. She notes that she does not remember much about when she first came in. All She remembers is the squad picking her up and getting an MRI. She notes that she has taken too many trazodone pills before, with the last episode several months ago. She says that she has a difficult time keeping track of when she is supposed to take her medications. She lives with her boyfriend. She is s/p upper endoscopy; denies any epigastric pain, nausea, vomiting, or hematemesis. She admits to numbness/ tingling in her lower extremities, but states that this is normal for her. She is A&O x 3; denies confusion, weakness, slurred speech, visual changes. - Constitutional Vitals: Temp Pulse Resp BP Pulse Ox 99.1 F 97 16 167/98 96 07/17/17 07:42 07/17/17 07:42 07/17/17 07:42 07/17/17 07:42 07/17/17 07:42 General appearance: Present: cooperative, A&O X 3, morbidly obese, pleasant, no acute distress, answers questions appropriately - Head Head exam: Present: atraumatic, normocephalic - Eye Eye exam: Present: PERRL, conjuntiva pink, sclera anicteric Pupils: Present: PERRL - Neck Neck exam general surgery: Present: supple, trachea midline. Absent: lymphadenopathy - Respiratory Respiratory exam: Present: CTAB. Absent: accessory muscle use, rales, rhonchi, wheezes - Cardiovascular Cardiovascular exam: Present: RRR, +S1, +S2. Absent: diastolic murmur, gallop, rubs, systolic murmur - GI/Abdominal GI/Abdominal exam: Present: normal bowel sounds, soft, no peritoneal signs. Absent: distended, tenderness - Extremities Exam Extremities exam: Present: warm, radial pulses palpable and symmetrical. Absent : calf tenderness, cyanotic, pedal edema - Neurological Exam Neurological exam: Present: CN II-XII intact, oriented X3, no focal deficits. Absent: pronater drift, facial droop, speech deficit - Skin Skin exam: Present: dry, intact Internal Medicine: Result - Labs CBC & Chem 7: 07/17/17 05:26 07/17/17 05:26 Labs: Short CBC 07/17/17 Range/Units 05:26 WBC 7.0 (4.3-11.1) K/mcL Hgb 11.5 (11.5-15.4) g/dL Hct 35.6 (35.3-44.9) % Plt Count 105 L (140-400) K/mcL Neutrophils # 5.4 (1.6-8.9) K/mcL BMP 07/16/17 07/17/17 07:31 05:26 Sodium 142 139 Potassium 4.2 3.6 Chloride 112 H 109 Carbon Dioxide 23 24 BUN 11 12 Creatinine 0.80 0.78 Glucose 99 106 H Calcium 8.5 L 9.0 - ABG Interpretation ABG results: PT/INR, D-dimer PT 11.5 Seconds (9.4-12.1) 07/14/17 12:49 - VTE Documentation of Mechanical Device: Intermittent pneumatic compression device Consult Discharge Plan - Plan Referrals: Johnie Farley MD [Primary Care Provider] -
--- NOTE | 2017-07-17 08:50 | Discharge Summary ---
Date of Encounter: 07/17/17 Time of Encounter: 08:47 - Discharge Diagnosis (1) Medication overdose Priority: Primary Status: Acute Comments: Unintentional medication overdose with trazodone Qualifiers: Encounter type: initial encounter Injury intent: undetermined intent Qualified Code(s): T50.904A - Poisoning by unspecified drugs, medicaments and biological substances, undetermined, initial encounter (2) Multiple sclerosis Priority: Secondary Status: Chronic (3) Polypharmacy Priority: Secondary Status: Acute (4) KRISHNA (acute kidney injury) Priority: Secondary Status: Acute (5) Upper GI bleed Priority: Secondary Status: Acute Comments: Acute and chronic blood loss anemia Secondary to acute and chronic gastritis - Discharge Medications Prescriptions: Gabapentin [Neurontin] 600 mg PO TID #90 capsule Pantoprazole Sodium [Protonix] 40 mg PO BID #60 tablet.dr Nelson Medications: Atorvastatin [Lipitor] 40 mg PO HS 04/10/15 [History] Sertraline [Zoloft] 100 mg PO DAILY 04/10/15 [History] Albuterol Sulfate [Albuterol Inhaler] 2 puff IH Q4H PRN 09/01/16 [History] Levothyroxine [Synthroid] 112 mcg PO QAM 09/01/16 [History] Meloxicam [Mobic] 15 mg PO DAILY 09/01/16 [History] Potassium Chloride [Klor-Con 10] 20 meq PO BID 09/01/16 [History] Trazodone HCl 200 mg PO HS 09/01/16 [History] Baclofen 20 mg PO HS #0 09/04/16 [Rx] Zolpidem [Ambien] 5 mg PO HS PRN #0 09/04/16 [Rx] Fluticasone Propionate [Flovent Hfa] 1 puff IH BID 06/29/17 [History] Mirabegron [Myrbetriq] 50 mg PO DAILY 06/29/17 [History] ALPRAZolam [Xanax 1 MG Tablet] 1 mg PO BID 07/14/17 [History] Diphenoxylate/Atropine [Lomotil 2.5 mg/0.025 mg] 1 tab PO QID PRN 07/14/17 [ History] Furosemide [Lasix] 40 mg PO DAILY #30 07/17/17 [Rx] Gabapentin [Neurontin] 600 mg PO TID #90 capsule 07/17/17 [Rx] Pantoprazole Sodium [Protonix] 40 mg PO BID #60 tablet. 07/17/17 [Rx] Allergies/Adverse Reactions: 3 Allergy/AdvReac Type Severity Reaction Status Date / Time Latex, Natural Rubber AdvReac Anaphylaxis Verified 05/22/17 13:05 Date of admission: 07/14/17 23:59 Primary care physician: Johnie Farley MD Consults: 07/15/17 08:37 Consult to Gastroenterology [CONS] Routine Consulting Provider: Gastroenterology Afia Reason for Consult: possible GI bleeding from NG Call Completed: No 07/15/17 09:09 Consult to Psychiatry [CONS] Routine Consulting Provider: Psychiatry Afia Reason for Consult: over dose Call Completed: No - Patient Status Disposition: Home Health Service Condition: Fair Overall status at discharge: patient is progressing back to baseline - Discharge Instructions Follow Up With: Johnie Farley MD [Primary Care Provider] - Additional Instructions: Follow-up with primary care physician within the next 7 days. Avoid trazodone if not needed. Continue Protonix 40 mg twice a day - Diet and Activity Activity: increase activity as tolerated Diet: low fat, low cholesterol Hospital course: Ms. Copeland is a 56 year old female with a past medical history of hypothyroid , hyperlipidemia, mood disorde,r anal cancer, MS, distolic CHF. Patient was unable to give history due to somnolence/altered mental stateupon admission. According to ER records the patient awakened in the middle the night confused and had vomited some pills, her mental state had worsened throughout the day and called EMS. Patient was very groggy upon presentation to the ER, she had blue discoloration of her tongue, when questioned she took she said "pills". Has reported to the ER she may have taken Ambien or trazodone. Lab work was obtained and urine tox was positive for amphetamines ( likely from trazodone false positive) and marijuana. CT of head cervical spine and chest x- ray were all negative. She did have KRISHNA on lab work creatinine 1.23 that resolved. ER physician did speak with poison control who recommended observation and supportive measures. During her hospitalization she underwent an upper endoscopy that showed acute/ chronic gastritis. Was continued on PPIs. No active bleeding. Was evaluated by psychiatry and neurology, no additional recommendations were given. The patient is back to her baseline and prefers to be discharged at this point. She sounds a slightly congested as she takes Lasix as needed only at home 40 mg. She will be given a dose of 60 mg and was instructed to continue Lasix daily. Time spent discussing smoking cessation with patient: 3 to 10 minutes - Time Spent with Patient Total time spent providing and/or coordinating discharge services: Greater than 30 minutes (40 min) - Constitutional Vitals: Temp Pulse Resp BP Pulse Ox 99.1 F 97 16 167/98 96 07/17/17 07:42 07/17/17 07:42 07/17/17 07:42 07/17/17 07:42 07/17/17 07:42 General appearance: Present: cooperative, A&O X 3, morbidly obese, pleasant, no acute distress, answers questions appropriately - Head Head exam: Present: atraumatic, normocephalic - Eye Eye exam: Present: PERRL, conjuntiva pink, sclera anicteric Pupils: Present: PERRL - Neck Neck exam general surgery: Present: supple, trachea midline. Absent: lymphadenopathy - Respiratory Respiratory exam: Present: CTAB. Absent: accessory muscle use, rales, rhonchi, wheezes - Cardiovascular Cardiovascular exam: Present: RRR, +S1, +S2. Absent: diastolic murmur, gallop, rubs, systolic murmur - GI/Abdominal GI/Abdominal exam: Present: normal bowel sounds, soft, no peritoneal signs. Absent: distended, tenderness - Extremities Exam Extremities exam: Present: warm, radial pulses palpable and symmetrical. Absent : calf tenderness, cyanotic, pedal edema - Neurological Exam Neurological exam: Present: CN II-XII intact, oriented X3. Absent: no focal deficits (Bilateral chronic leg weakness from MS), pronater drift, facial droop , speech deficit - Skin Skin exam: Present: dry, intact - VTE Documentation of Mechanical Device: Intermittent pneumatic compression device
--- NOTE | 2017-07-17 09:07 | Physician Discharge Referral ---
Home Health/Hosp Referral Info Transfer to: Home Health Provider in Charge Post Discharge: PCP - Diagnosis (1) Medication overdose Status: Acute (2) Multiple sclerosis Status: Chronic (3) Polypharmacy Status: Acute (4) KRISHNA (acute kidney injury) Status: Acute (5) Upper GI bleed Status: Acute - Respiratory Orders Smoking Cessation: Smoking cessation has been advised. For more information, call the [employer] Tobacco Quit Line at 6-247-RIMG-NOW. - Services Needed Following services are medically necessary services: Physical Therapy Home Care Orders: Follow-up with primary care physician within the next 7 days. Avoid trazodone if not needed. Continue Protonix 40 mg twice a day - Transfer Medications Prescriptions: Gabapentin [Neurontin] 600 mg PO TID #90 capsule Pantoprazole Sodium [Protonix] 40 mg PO BID #60 tablet.dr Home Medications: Atorvastatin [Lipitor] 40 mg PO HS 04/10/15 [History] Sertraline [Zoloft] 100 mg PO DAILY 04/10/15 [History] Albuterol Sulfate [Albuterol Inhaler] 2 puff IH Q4H PRN 09/01/16 [History] Levothyroxine [Synthroid] 112 mcg PO QAM 09/01/16 [History] Meloxicam [Mobic] 15 mg PO DAILY 09/01/16 [History] Potassium Chloride [Klor-Con 10] 20 meq PO BID 09/01/16 [History] Trazodone HCl 200 mg PO HS 09/01/16 [History] Baclofen 20 mg PO HS #0 09/04/16 [Rx] Zolpidem [Ambien] 5 mg PO HS PRN #0 09/04/16 [Rx] Fluticasone Propionate [Flovent Hfa] 1 puff IH BID 06/29/17 [History] Mirabegron [Myrbetriq] 50 mg PO DAILY 06/29/17 [History] ALPRAZolam [Xanax 1 MG Tablet] 1 mg PO BID 07/14/17 [History] Diphenoxylate/Atropine [Lomotil 2.5 mg/0.025 mg] 1 tab PO QID PRN 07/14/17 [ History] Furosemide [Lasix] 40 mg PO DAILY #30 07/17/17 [Rx] Gabapentin [Neurontin] 600 mg PO TID #90 capsule 07/17/17 [Rx] Pantoprazole Sodium [Protonix] 40 mg PO BID #60 tablet. 07/17/17 [Rx] Allergies/Adverse Reactions: 3 Allergy/AdvReac Type Severity Reaction Status Date / Time Latex, Natural Rubber AdvReac Anaphylaxis Verified 05/22/17 13:05 Certification: Further, I certify that my clinical findings support that this patient is homebound (i.e. absences from home require considerable and taxing effort and are for medical reasons or adventism services or infrequently or short duration when for other reasons) because: Homebound Reason: Patient requires assistance of a person or device to safely leave home Attestation: My signature below is to certify that this patient is under my care and that I, or nurse practitioner, or a physician's child care assistant working with me, has a face-to -face encounter with this patient.
[2017-07-17] MEDS: Gabapentin 300 MG CAPSULE PO SCH (09:40)
--- NOTE | 2017-07-17 09:50 | Electrocardiograph Report ---
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
== END 2017-07-17 12:05 | disposition home health service (06) | DRG 917 ==
LOC: EMEROO 12:15 → 3ANU 12:15 → SUATTDRO 23:59
PROVIDERS: ADMIT Nurse Practitioner Acute Care; ATTEND Internal Medicine
PROC: ENDOEBX (2017-07-16 11:30)

== ENCOUNTER 2017-07-26 15:24 | Observation (INO) ==
[2017-07-26 16:24] LABS: Bilirubin,Urine Negative (Negative); Blood,Urine Negative (Negative); Clarity,Urine Cloudy (Clear); Color,Urine Yellow (Yellow); Glucose,Urine (UA) Normal (Normal); Ketones,Urine Negative (Negative); Leukocyte Esterase,Urine Trace (Negative); Nitrite,Urine Negative (Negative); PH,Urine 7.5 pH Units (5.0-8.0); Protein,Urine 30 mg/dL (Neg-Trace); Specific Gravity,Urine 1.024 (1.010-1.025); Urobilinogen,Urine Normal (Normal)
[2017-07-26 16:26] LABS: Hyaline Casts,Urine None Seen per lpf (None-Few); Squamous Epithelial Cell,Urine Many per lpf (None-Few)
[2017-07-26 16:31] LABS: Amphetamine Screen,Urine Positive ng/mL (Cutoff=1000); Barbiturate Screen,Urine Negative ng/mL (Cutoff=200); Benzodiazepines Screen,Urine Positive ng/mL (Cutoff=200); Cocaine Screen,Urine Negative ng/mL (Cutoff= 300); Opiate Screen,Urine Negative ng/mL (Cutoff=300); Phencyclidine Screen,Urine Negative ng/mL (Cutoff=25)
[2017-07-26 16:38] LABS: Bacteria,Urine Few per hpf (None-Few); Mucus,Urine Few (Few); RBC,Urine 0-3 per hpf (0-3)
--- NOTE | 2017-07-26 16:38 | Emergency Department Note ---
Disposition Clinical Impression: Confusion, Polysubstance abuse Disposition: Admitted As Inpatient Condition: Fair Time of Disposition: 19:55 Altered Mental Status HPI - General Chief Complaint: ED Altered Mental Status Stated Complaint: AMS Time Seen by Provider: 07/26/17 15:28 Source: EMS Limitations: altered mental status Nursing Notes Reviewed: Yes Vital Signs Reviewed: Yes - History of Present Illness HPI Narrative: Ms. Copeland, 56-year-old female, presents from home via EMS. Currently no family or friends at bedside. Patient is unable to answer direct questions. She is alert to name and date of only. Her eyes are open and she is awake and protecting her airway. When asked what she may taken, she said "trazodone." Unknown to the patient if she has fallen. PMH: Hypothyroidism, hyperlipidemia, MS, diastolic congestive heart failure, mood disorder - Related Data Home Medications Medication Instructions Recorded Confirmed Atorvastatin [Lipitor] 40 mg PO HS 04/10/15 07/26/17 Sertraline [Zoloft] 100 mg PO DAILY 04/10/15 07/26/17 Albuterol Sulfate [Albuterol 2 puff IH Q4H PRN 09/01/16 07/26/17 Inhaler] Levothyroxine [Synthroid] 112 mcg PO QAM 09/01/16 07/26/17 Meloxicam [Mobic] 15 mg PO DAILY 09/01/16 07/26/17 Potassium Chloride [Klor-Con 10] 20 meq PO BID 09/01/16 07/26/17 Trazodone HCl 200 mg PO HS 09/01/16 07/26/17 Fluticasone Propionate [Flovent 1 puff IH BID 06/29/17 07/26/17 Hfa] Mirabegron [Myrbetriq] 50 mg PO DAILY 06/29/17 07/26/17 ALPRAZolam [Xanax 1 MG Tablet] 1 mg PO BID 07/14/17 07/26/17 BuPROPion SR (12 HR) [Wellbutrin 150 mg PO BID 07/26/17 07/26/17 SR] Ipratropium/Albuterol Neb [Duoneb] 3 ml IH Q6HR PRN 07/26/17 07/26/17 levoFLOXacin [Levaquin] 500 mg PO DAILY 07/26/17 07/26/17 predniSONE [PredniSONE] See Taper PO AD 07/26/17 07/26/17 Previous Rx's Medication Instructions Recorded Baclofen 20 mg PO HS #0 09/04/16 Zolpidem [Ambien] 5 mg PO HS PRN #0 09/04/16 Furosemide [Lasix] 40 mg PO DAILY #30 07/17/17 Gabapentin [Neurontin] 600 mg PO TID #90 capsule 07/17/17 Pantoprazole Sodium [Protonix] 40 mg PO BID #60 tablet. 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 In no acute distress. HEENT: No facial asymmetry. Head is normocephalic and atraumatic. PERRLA, EOMI. because of moist. Trachea midline. Cardiovascular: Heart regular rate and rhythm without clicks, rubs, gallops, or murmurs. No JVD. PMI nondisplaced. Bilateral radial posterior tibial pulses 2 /4 equal. Bilateral 2+ pedal pitting edema. Right lower extremity is more swollen the left; no erythema or tenderness. Respiratory: Symmetric chest rise with poor respiratory effort. Bilateral breath sounds are clear without wheezing, crackles, or rhonchi. Abdomen: Obese. Bowel sounds present normoactive x-4 quadrants. Abdomen is soft, nondistended, and nontender. Musculoskeletal: Continues to be moving all extremities. Muscle strength exam limited by patient mentation. Neuro: Cranial nerves II through XII without deficit. Psych: Patient's affect is appropriate for situation. - General Limitations: altered mental status General appearance: alert, other Course Course Narrative: Appears to be in no acute distress. She is maintaining her airway. We will perform alternate mentation workup. Patient's boyfriend is now bedside. He notes the patient's symptoms started last night. He states the patient was passing out however describes the patient sitting in the chair with her head nodding down where she would catch herself and wake up. He was relatively fixed on the television and is unsure about when and how she took her own medications patient completely manages her own medications. He does note that last night she attempted to take a baclofen believing it was one of her sleeping medications. He corrected her. Today, patient was drowsy with her speech trailing off as she was apparently going to sleep during conversation. It was at this time he called EMS. He very clearly states that at no time did the patient fall. CT head and C-spine are negative for acute abnormalities. EKG and CXR unremarkable. Troponin not elevated. Serum chemistry unremarkable. Serum hematology unremarkable. UA not concerning for UTI - contamination likely, culture pending. Urine drug screen positive for amphetamines, benzodiazepines, marijuana. A trazodone metabolite can cross-react with the amphetamine assay causing false positive and patient has an alprazolam prescription. Her presentation is clinically unlikely soley from marijuana, though THC may be a component. Unknown if her THC had cross-contaminates or impurities. 18:35 Patient reassessed. When asked her name, she replies appropriately. When asked her birthday, she replies "gabapentin." When asked where are you? She replies "Connie Copeland," or "I do not know." Clinically, patient still has altered mentation. She is more awake now than on intake however not at baseline and not safe for discharge home. I discussed the patient with the admitting hospitalist, Dr. Martins, who agrees to see the patient for continued evaluation and management. Vital Signs Temperature 97.3 F L 07/26/17 15:27 Pulse Rate 80 07/26/17 15:27 Respiratory Rate 20 07/26/17 15:27 Blood Pressure 135/77 07/26/17 15:27 O2 Sat by Pulse Oximetry 95 07/26/17 15:27 Temperature 97.3 F L 07/26/17 15:27 Pulse Rate 96 07/26/17 19:13 Respiratory Rate 18 07/26/17 19:13 Blood Pressure 139/81 07/26/17 19:13 O2 Sat by Pulse Oximetry 98 07/26/17 19:13 Oxygen Delivery Oxygen Delivery Room Air Altered Mental Status - Medical Records Medical records reviewed: Yes I reviewed the patient's medical records. - Lab Data Lab results reviewed: Yes I reviewed the patient's lab results. Result diagrams: 07/26/17 16:43 07/26/17 16:43 Lab Results 07/26/17 07/26/17 07/26/17 Range/Units 16:14 16:17 16:43 WBC 6.8 (4.3-11.1) K/mcL RBC 4.14 (3.82-4.97) M/mcL Hgb 12.1 (11.5-15.4) g/dL Hct 36.6 (35.3-44.9) % MCV 88.4 (83.0-100.0) fL MCH 29.2 (28.0-33.3) pg MCHC 33.1 (31.6-35.5) g/dL RDW 14.1 (11.5-14.5) % Plt Count 160 (140-400) K/mcL MPV 11.2 (9.4-12.4) fL Immature Gran % 0.3 (0-4) % Seg Neutrophils % 72.8 % Lymphocytes % 16.7 % Monocytes % 8.0 % Eosinophils % 1.9 % Basophils % 0.3 % Neutrophils # 4.9 (1.6-8.9) K/mcL Lymphocytes # 1.1 (0.6-4.6) K/mcL Monocytes # 0.5 (0.0-1.3) K/mcL Eosinophils # 0.1 (0.0-0.6) K/mcL Basophils # 0.0 (0.0-0.2) K/mcL PT (9.4-12.1) Seconds INR APTT (26.0-36.0) Seconds Sodium (136-145) mEq/L Potassium (3.5-4.5) mEq/L Chloride (98-109) mEq/L Carbon Dioxide (19-29) mEq/L BUN (7-20) mg/dL Creatinine (0.57-1.11) mg/dL Est GFR ( Amer) (> 60) Est GFR (Non-Af Amer) (> 60) BUN/Creatinine Ratio (6-26) Glucose (70-99) mg/dL Calculated Osmolality (280-300) Calcium (8.6-10.8) mg/dL Total Bilirubin (0.2-1.2) mg/dL Direct Bilirubin (0.0-0.5) mg/dL Indirect Bilirubin (0.0-1.2) mg/dL AST (5-34) Units/L ALT (0-55) Units/L Alkaline Phosphatase (38-126) Units/L Troponin I (0-0.03) ng/mL Serum Total Protein (6.0-8.3) g/dL Albumin (3.5-5.0) g/dL Globulin (2.4-3.5) g/dL Albumin/Globulin Ratio (1.1-2.2) TSH (0.350-4.840) mcIU/mL Urine Color Yellow (Yellow) Urine Clarity Cloudy A (Clear) Urine pH 7.5 (5.0-8.0) pH Units Ur Specific Wallace 1.024 (1.010-1.025) Urine Protein 30 H (Neg-Trace) mg/dL Urine Glucose (UA) Normal (Normal) mg/dL Urine Ketones Negative (Negative) mg/dL Urine Blood Negative (Negative) Urine Nitrite Negative (Negative) Urine Bilirubin Negative (Negative) Urine Urobilinogen Normal (Normal) mg/dL Ur Leukocyte Esterase Trace H (Negative) Urine Microscopic RBC 0-3 (0-3) per hpf Urine Microscopic WBC 5-15 H (0-3) per hpf Ur Squamous Epith Cells Many H (None-Few) per lpf Urine Bacteria Few (None-Few) per hpf Hyaline Casts None Seen (None-Few) per lpf Urine Mucus Few (Few) Ur Culture Indicated? YES A (NO) Urine Opiates Screen Negative (Khkbee=992) ng/mL Ur Barbiturates Screen Negative (Xxqqoj=314) ng/mL Ur Phencyclidine Scrn Negative (Cutoff=25) ng/mL Ur Amphetamines Screen Positive H (Lyqoqq=7768) ng/mL U Benzodiazepines Scrn Positive H (Lrhpyr=374) ng/mL Urine Cocaine Screen Negative (Cutoff= 300) ng/mL U Marijuana (THC) Screen Positive H (Cutoff = 50) ng/mL Ethyl Alcohol (0-10) mg/dL 07/26/17 07/26/17 07/26/17 Range/Units 16:43 16:43 16:43 WBC (4.3-11.1) K/mcL RBC (3.82-4.97) M/mcL Hgb (11.5-15.4) g/dL Hct (35.3-44.9) % MCV (83.0-100.0) fL MCH (28.0-33.3) pg MCHC (31.6-35.5) g/dL RDW (11.5-14.5) % Plt Count (140-400) K/mcL MPV (9.4-12.4) fL Immature Gran % (0-4) % Seg Neutrophils % % Lymphocytes % % Monocytes % % Eosinophils % % Basophils % % Neutrophils # (1.6-8.9) K/mcL Lymphocytes # (0.6-4.6) K/mcL Monocytes # (0.0-1.3) K/mcL Eosinophils # (0.0-0.6) K/mcL Basophils # (0.0-0.2) K/mcL PT 11.6 (9.4-12.1) Seconds INR 1.1 APTT 27.5 (26.0-36.0) Seconds Sodium 142 (136-145) mEq/L Potassium 3.6 (3.5-4.5) mEq/L Chloride 104 (98-109) mEq/L Carbon Dioxide 24 (19-29) mEq/L BUN 14 (7-20) mg/dL Creatinine 0.84 (0.57-1.11) mg/dL Est GFR ( Amer) > 60 (> 60) Est GFR (Non-Af Amer) > 60 (> 60) BUN/Creatinine Ratio 17 (6-26) Glucose 96 (70-99) mg/dL Calculated Osmolality 294 (280-300) Calcium 9.5 (8.6-10.8) mg/dL Total Bilirubin 0.3 (0.2-1.2) mg/dL Direct Bilirubin 0.1 (0.0-0.5) mg/dL Indirect Bilirubin 0.2 (0.0-1.2) mg/dL AST 10 (5-34) Units/L ALT 19 (0-55) Units/L Alkaline Phosphatase 108 (38-126) Units/L Troponin I 0.01 (0-0.03) ng/mL Serum Total Protein 6.6 (6.0-8.3) g/dL Albumin 3.2 L (3.5-5.0) g/dL Globulin 3.4 (2.4-3.5) g/dL Albumin/Globulin Ratio 0.9 L (1.1-2.2) TSH 5.350 H (0.350-4.840) mcIU/mL Urine Color (Yellow) Urine Clarity (Clear) Urine pH (5.0-8.0) pH Units Ur Specific Wallace (1.010-1.025) Urine Protein (Neg-Trace) mg/dL Urine Glucose (UA) (Normal) mg/dL Urine Ketones (Negative) mg/dL Urine Blood (Negative) Urine Nitrite (Negative) Urine Bilirubin (Negative) Urine Urobilinogen (Normal) mg/dL Ur Leukocyte Esterase (Negative) Urine Microscopic RBC (0-3) per hpf Urine Microscopic WBC (0-3) per hpf Ur Squamous Epith Cells (None-Few) per lpf Urine Bacteria (None-Few) per hpf Hyaline Casts (None-Few) per lpf Urine Mucus (Few) Ur Culture Indicated? (NO) Urine Opiates Screen (Znnvtr=690) ng/mL Ur Barbiturates Screen (Qlmdmx=901) ng/mL Ur Phencyclidine Scrn (Cutoff=25) ng/mL Ur Amphetamines Screen (Ezdayk=5606) ng/mL U Benzodiazepines Scrn (Zbeafr=711) ng/mL Urine Cocaine Screen (Cutoff= 300) ng/mL U Marijuana (THC) Screen (Cutoff = 50) ng/mL Ethyl Alcohol < 10 (0-10) mg/dL - Radiology Data Radiology results reviewed: Yes I reviewed the patient's radiology results. Cervical Spine CT 07/26/17 16:04 IMPRESSION: No acute abnormality of the cervical spine. D/ / Kartik Do / Kartik Do Interpreting Provider: Kartik Do Chest X-Ray 07/26/17 16:04 IMPRESSION: Stable negative chest. D/ / Jacy Vang MD / Jacy Vang MD Interpreting Provider: Jcay Vang MD Head CT 07/26/17 16:04 IMPRESSION: Stable CT brain with no acute intracranial abnormality. D/ / Jacy Vang MD / Jacy Vang MD Interpreting Provider: Jacy Vang MD - EKG Data EKG attestation: Yes I reviewed and interpreted this EKG. EKG results narrative: EKG dated 01-25 at 16:21 interpreted as sinus rhythm with a rate of 79. OR 140, QRS 96, QT/QTC 378/412. Left axis. Nonspecific ST-T changes. No previous EKG for comparison. TPA Checklist - LKW: 3-4.5 hrs Add. Warnings/Precautions Patient/family understanding: The patient/family members have been counseled and understood the risk, benefit , and alternatives of treatment. Attestation Statement - Attestation Attestation: I examined this patient and my medical decision-making was reviewed with the Resident Physician. I agree with the documented findings, disposition and treatment plan as described except to the extent set forth below. Patient presents to the ED with a chief complaint of altered mental status. EMS states they were called for a fall. The patient's significant other arrived she states there was no fall. Patient does not remember why she is here. Patient has a history of similar episodes similar to polypharmacy. On exam she is awake and alert and pleasantly confused. She is moving all extremities. Oriented to self only. Plan. Altered mental status workup. Patient still altered on reevaluation. Afebrile. Will admit.
[2017-07-26 16:49] LABS: Basophils % 0.3 %; Eosinophils # 0.1 K/mcL (0.0-0.6); Eosinophils % 1.9 %; Hematocrit 36.6 % (35.3-44.9); Hemoglobin 12.1 g/dL (11.5-15.4); Immature Granulocytes % 0.3 % (0-4); Lymphocytes # 1.1 K/mcL (0.6-4.6); Lymphocytes % 16.7 %; Mean Corpuscular HGB Conc 33.1 g/dL (31.6-35.5); Mean Corpuscular Hemoglobin 29.2 pg (28.0-33.3); Mean Corpuscular Volume 88.4 fL (83.0-100.0); Mean Platelet Volume 11.2 fL (9.4-12.4); Monocytes # 0.5 K/mcL (0.0-1.3); Neutrophils # 4.9 K/mcL (1.6-8.9); Platelet Count 160 K/mcL (140-400); Red Blood Count 4.14 M/mcL (3.82-4.97); Red Cell Distribution Width 14.1 % (11.5-14.5); Segmented Neutrophils % 72.8 %
[2017-07-26 16:55] LABS: Cannabinoid Screen,Urine Positive ng/mL (Cutoff = 50)
[2017-07-26 17:01] LABS: INR 1.1; Prothrombin Time 11.6 Seconds (9.4-12.1)
[2017-07-26 17:03] LABS: Activated Partial Thrombo Time 27.5 Seconds (26.0-36.0)
[2017-07-26 17:04] LABS: Alanine Aminotransferase 19 Units/L (0-55); Albumin 3.2 g/dL (3.5-5.0); Albumin/Globulin Ratio 0.9 (1.1-2.2); Alkaline Phosphatase 108 Units/L (38-126); Aspartate Amino Transferase 10 Units/L (5-34); BUN/Creatinine Ratio 17 (6-26); Bilirubin,Direct 0.1 mg/dL (0.0-0.5); Bilirubin,Indirect 0.2 mg/dL (0.0-1.2); Bilirubin,Total 0.3 mg/dL (0.2-1.2); Blood Urea Nitrogen 14 mg/dL (7-20); Calcium 9.5 mg/dL (8.6-10.8); Carbon Dioxide 24 mEq/L (19-29); Chloride 104 mEq/L (98-109); Globulin 3.4 g/dL (2.4-3.5); Glucose 96 mg/dL (70-99); Osmolality,Calculated 294 (280-300); Potassium 3.6 mEq/L (3.5-4.5); Sodium 142 mEq/L (136-145); Total Protein 6.6 g/dL (6.0-8.3); eGFR For African Americans > 60 (> 60); eGFR For Non-African Americans > 60 (> 60)
[2017-07-26 17:05] LABS: Ethanol < 10 mg/dL (0-10)
[2017-07-26] MEDS ORDERED: Naloxone 0.4 MG/ML INJ IVP PRN (21:01)
[2017-07-26] MEDS ORDERED: Ondansetron 4 MG/2 ML VIAL IVP PRN (21:01)
[2017-07-26] MEDS ORDERED: *HR* Morphine 2 MG/ML SYRINGE IVP PRN (21:01)
--- NOTE | 2017-07-26 21:11 | Internal Med History&Physical ---
Date of Encounter: 07/26/17 Time of Encounter: 20:50 Assessment and Plan (1) Acute encephalopathy Current visit: Yes Status: Acute Acute encephalopathy, metabolic - likely due to medication overdose/Polypharmacy , intentional vs accidental - multiple admissions for similar complaints NPO, IV fluids, supportive care, neurochecks CT head - no acute intracranial abnormality Chest x-ray - negative CT C-spine - no acute abnormality EKG - sinus rhythm with no acute ST-T changes Troponin - 0.01 UDS - positive for THC, amphetamines, benzodiazepines Cardiac telemetry, pulse ox, labs in a.m., monitor closely (2) Polysubstance abuse Current visit: Yes Status: Acute Marijuana use and tobacco abuse Patient is on Xanax, Neurontin, Trazodone and Ambien at home These medications are probably contributing to acute encephalopathy (3) Multiple sclerosis Current visit: Yes Status: Chronic Multiple sclerosis, stable - unlikely to be acute flareup Patient was recently given a steroid taper dose Patient does not seem to follow up with neurology (4) Mood disorder Current visit: Yes Status: Acute Chronic mood disorder, bipolar disorder with anxiety and depression and probable schizophrenia Unclear if patient follows up with psychiatry Patient is on Zoloft, Trazodone, Ambien, Wellbutrin and Xanax at home Hold these medications due to acute encephalopathy (5) DVT prophylaxis Current visit: Yes Status: Acute Heparin subcutaneous Internal Medicine - H&P: HPI Chief complaint: Altered mental status Admitted From: Emergency Dept Plans for Post Hospital Care: Home History of present illness: Ms. Copeland is a 56 year old female with past medical history of hypothyroidism , hyperlipidemia, multiple sclerosis, diastolic CHF, bipolar disorder, anxiety, schizophrenia and depression. Patient presents to the ED for altered mental status. Examined in the room. Patient is awake and alert. Not in any distress. She is a poor historian. No family members at bedside. She is able to verbalize and follows commands, but does not answer questions appropriately. She is oriented to place and person, but not to time. Most of the history is obtained from ED records. Symptoms of confusion apparently started last night. Patient was apparently passing out. There is concern about accidental overdose with possibly Gabapentin, Trazodone or Baclofen. Patient is apparently did not more drowsy today. Denies chest pain or shortness of breath. Patient answers "gabapentin" or "trazodone", when asked some questions. Patient clearly has altered mental status at this time. She has been admitted multiple times for similar complaints. Unclear if she has intentional or accidental overdose. No other acute complaints. No other associated symptoms at this time. Initial workup in the ED is significant for positive benzodiazepines, THC and amphetamines seen on urine drug screen. Shows sinus rhythm with no acute ST-T changes. CT of the head does not show any acute intracranial abnormality and CT of the cervical spine does not show any acute abnormality. Chest x-ray is also negative. We will continue IV fluids and supportive care at this time. Monitor patient closely. It has been excellent about her condition and plan of care in detail. CODE STATUS full code. Past Med Surg Social Fam HX - Past Medical History Medical history: cancer, hyperlipidemia, other Psychiatric history: anxiety, depression, other - Past Surgical History Surgical History: other, appendectomy - Social History Smoking Status: Current every day smoker Smokeless Tobacco Status: No Alcohol use: none Drug use: marijuana - Family History Father Living Status: Hx Family Cardiac Disorders: Yes Hx Family Respiratory Disorders: Yes Mother Living Status: Still Living Internal Medicine - H&P: Meds Atorvastatin [Lipitor] 40 mg PO HS 04/10/15 [History] Sertraline [Zoloft] 100 mg PO DAILY 04/10/15 [History] Albuterol Sulfate [Albuterol Inhaler] 2 puff IH Q4H PRN 09/01/16 [History] Levothyroxine [Synthroid] 112 mcg PO QAM 09/01/16 [History] Meloxicam [Mobic] 15 mg PO DAILY 09/01/16 [History] Potassium Chloride [Klor-Con 10] 20 meq PO BID 09/01/16 [History] Trazodone HCl 200 mg PO HS 09/01/16 [History] Baclofen 20 mg PO HS #0 09/04/16 [Rx] Zolpidem [Ambien] 5 mg PO HS PRN #0 09/04/16 [Rx] Fluticasone Propionate [Flovent Hfa] 1 puff IH BID 06/29/17 [History] Mirabegron [Myrbetriq] 50 mg PO DAILY 06/29/17 [History] ALPRAZolam [Xanax 1 MG Tablet] 1 mg PO BID 07/14/17 [History] Furosemide [Lasix] 40 mg PO DAILY #30 07/17/17 [Rx] Gabapentin [Neurontin] 600 mg PO TID #90 capsule 07/17/17 [Rx] Pantoprazole Sodium [Protonix] 40 mg PO BID #60 tablet. 07/17/17 [Rx] BuPROPion SR (12 HR) [Wellbutrin SR] 150 mg PO BID 07/26/17 [History] Ipratropium/Albuterol Neb [Duoneb] 3 ml IH Q6HR PRN 07/26/17 [History] levoFLOXacin [Levaquin] 500 mg PO DAILY 07/26/17 [History] predniSONE [PredniSONE] See Taper PO AD 07/26/17 [History] 3 Allergy/AdvReac Type Severity Reaction Status Date / Time Latex, Natural Rubber AdvReac Anaphylaxis Verified 07/26/17 15:25 ROS unobtainable: due to mental status All Systems PM: A 10-system review of systems was performed and is negative for pertinent findings except as documented above in the HPI. Review of systems: Patient is able to answer some questions appropriately, but is a poor historian. Oriented to place and person, but not to time. - Cardiovascular Cardiovascular ROS IM: no chest pain, no dyspnea - Respiratory Respiratory: no cough, no dyspnea - Constitutional Vitals: Temp Pulse Resp BP Pulse Ox 97.7 F 78 16 163/92 96 07/26/17 20:42 07/26/17 20:42 07/26/17 20:42 07/26/17 20:42 07/26/17 20:42 General appearance: Present: cooperative, A&O X 2, morbidly obese, no acute distress Exam: Awake and alert. Able to verbalize and follows commands. She is able to answer some questions appropriately. She is oriented to place and person, but not time. - Head Head exam: Present: atraumatic - Eye Eye exam: Present: EOMI - ENT ENT exam: Present: mucous membranes dry - Respiratory Respiratory exam: Present: CTAB. Absent: chest wall tenderness, rales, respiratory distress, rhonchi, wheezes, tachypnea - Cardiovascular Cardiovascular exam: Present: RRR, +S1, +S2 - GI/Abdominal GI/Abdominal exam: Present: soft. Absent: distended, firm, guarding, tenderness - Extremities Exam Extremities exam: Present: radial pulses palpable and symmetrical. Absent: calf tenderness, cyanotic, pedal edema - Neurological Exam Neurological exam: Present: altered, CN II-XII intact, no focal deficits. Absent: pronater drift, facial droop, speech deficit Additional comments: Allergic and alert and not in any distress. Seems to still have persistent confusion. Oriented to place and person, but not to time. No focal neurological deficits. Able to verbalize and follows commands, but does not answer all questions appropriately. Internal Med - H&P Results - Labs CBC & Chem 7: 07/26/17 16:43 07/26/17 16:43
[2017-07-26] MEDS: 0.9 % Sodium Chloride 1,000 ML IVC SCH (22:00)
[2017-07-26] MEDS ORDERED: Ipratropium/Albuterol Neb 3 ML IH PRN (22:00)
[2017-07-27] MEDS: *HR* Heparin 5,000 UNIT/ML VIAL SQ SCH ×4 (00:39→23:30)
[2017-07-27 05:26] LABS: BUN/Creatinine Ratio 14 (6-26); Blood Urea Nitrogen 12 mg/dL (7-20); Carbon Dioxide 27 mEq/L (19-29); Chloride 105 mEq/L (98-109); Glucose 100 mg/dL (70-99); Osmolality,Calculated 296 (280-300); Potassium 3.5 mEq/L (3.5-4.5); Sodium 143 mEq/L (136-145); eGFR For African Americans > 60 (> 60); eGFR For Non-African Americans > 60 (> 60)
[2017-07-27] MEDS: Beclomethasone 80mcg MDI IH SCH ×2 (07:48→19:23)
[2017-07-27] MEDS: (Mirabegron [Myrbetriq] 50 MG) PO SCH (08:07)
[2017-07-27] MEDS: Furosemide 20 MG TABLET PO SCH (08:07)
[2017-07-27] MEDS: 0.9 % Sodium Chloride 1,000 ML IVC SCH (08:07)
[2017-07-27] MEDS: levoFLOXacin 500 MG TABLET PO SCH (08:07)
--- NOTE | 2017-07-27 18:49 | Electrocardiograph Report ---
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
[2017-07-27] MEDS ORDERED: Gabapentin 300 MG CAPSULE PO SCH (21:00)
[2017-07-27] MEDS: Gabapentin 300 MG CAPSULE PO SCH (21:11)
--- NOTE | 2017-07-27 23:20 | Internal Med Progress Note ---
Date of Encounter: 07/27/17 Time of Encounter: 15:17 - Assessment and plan (1) Altered mental status Current Visit: No Status: Acute Assessment and plan: Conitnue IVF and supportive care. As mentioned in H&P, this is less likely MS flare. She was treated as a flare several weeks ago when she presented similarly. She may benefit from a Psychiatry consult. Qualifiers: Altered mental status type: delirium Qualified Code(s): R41.0 - Disorientation, unspecified - Subjective Interval history: Ms. Copeland is a 56 year old female with past medical history of hypothyroidism , hyperlipidemia, multiple sclerosis, diastolic CHF, bipolar disorder, anxiety, schizophrenia and depression. Patient presents to the ED for altered mental status. Acute encephalopathy likely due to medication overdose/Polypharmacy, intentional vs accidental - multiple admissions for similar complaints. Patient is on Zoloft, Trazodone, Ambien, Wellbutrin and Xanax at home. There is concern about accidental overdose with possibly Gabapentin, Trazodone or Baclofen. Patient is apparently did not more drowsy today. Denies chest pain or shortness of breath. Patient answers "gabapentin" or "trazodone", when asked some questions. Patient clearly has altered mental status at this time. She has been admitted multiple times for similar complaints. Unclear if she has intentional or accidental overdose. Initial workup in the ED was significant for positive benzodiazepines, THC and amphetamines seen on urine drug screen. Shows sinus rhythm with no acute ST-T changes. CT of the head does not show any acute intracranial abnormality and CT of the cervical spine does not show any acute abnormality. Chest x-ray is also negative. - Constitutional Vitals: Temp Pulse Resp BP Pulse Ox 98.2 F 77 14 162/94 95 07/27/17 22:44 07/27/17 22:44 07/27/17 22:44 07/27/17 22:44 07/27/17 22:44 General appearance: Present: cooperative, A&O X 2, morbidly obese, no acute distress Exam: Blunted affect CVS: RRR Lungs: CTAB Ext: 1+ bipedal pitting edema Neruro: CN II-XII in tact, PERRLA, EOMI, no eye fatigue when patient is following fingers. Has occasional rigors in one arm. Speech is mostly normal and at times she stutters. Speech is coherent and meaningful. LE and UE exam normal including DTR, sensation. Internal Medicine: Result - Labs CBC & Chem 7: 07/26/17 16:43 07/27/17 04:32 Labs: BMP 07/27/17 04:32 Sodium 143 Potassium 3.5 Chloride 105 Carbon Dioxide 27 BUN 12 Creatinine 0.84 Glucose 100 H Calcium 9.0 - ABG Interpretation ABG results: PT/INR, D-dimer PT 11.6 Seconds (9.4-12.1) 07/26/17 16:43 Consult Discharge Plan - Plan Referrals: Jhonie Farley MD [Primary Care Provider] -
[2017-07-28] MEDS: Beclomethasone 80mcg MDI IH SCH ×2 (07:59→19:57)
[2017-07-28] MEDS: *HR* Heparin 5,000 UNIT/ML VIAL SQ SCH ×3 (08:59→23:36)
[2017-07-28] MEDS: Gabapentin 300 MG CAPSULE PO SCH ×3 (08:59→23:30)
[2017-07-28] MEDS: (Mirabegron [Myrbetriq] 50 MG) PO SCH (09:00)
[2017-07-28] MEDS: levoFLOXacin 500 MG TABLET PO SCH (09:00)
[2017-07-28] MEDS: Furosemide 20 MG TABLET PO SCH (09:00)
[2017-07-28] MEDS: Acetaminophen 325 MG TABLET PO PRN (23:30)
--- NOTE | 2017-07-28 23:35 | Internal Med Progress Note ---
Date of Encounter: 07/28/17 Time of Encounter: 11:32 - Assessment and plan (1) Altered mental status Current Visit: Yes Status: Acute Assessment and plan: Conitnue IVF and supportive care. As mentioned in H&P, this is less likely MS flare. She was treated as a flare several weeks ago when she presented similarly. Consult to Psychiatry - + amphetamines, marijuana, benzodiazepines (home med), possibly related to patients multiple presentations Consult to Neurology - had recent MRI 2 weeks ago but may need new imaging for any lesions May need to treat for UTI as she is an MS patient. Qualifiers: Altered mental status type: delirium Qualified Code(s): R41.0 - Disorientation, unspecified (2) Multiple sclerosis Current Visit: Yes Status: Chronic Assessment and plan: Not likely MS exacerbation. She had presented similarly in 06/2017 and treated for MS exacerbation but dwas questionable if this resolved issues. (3) Polypharmacy Current Visit: No Status: Acute - Subjective Interval history: Ms. Copeland is a 56 year old female with past medical history of hypothyroidism , hyperlipidemia, multiple sclerosis, diastolic CHF, bipolar disorder, anxiety, schizophrenia and depression. Patient presents to the ED for altered mental status. Acute encephalopathy likely due to medication overdose/Polypharmacy, intentional vs accidental. She has multiple admissions for similar complaints most recently . Patient is on Zoloft, Trazodone, Ambien, Wellbutrin and Xanax at home. There is concern about accidental overdose with possibly Gabapentin, Trazodone or Baclofen. Patient is apparently did not more drowsy today. Denies chest pain or shortness of breath. Patient answers "gabapentin" or "trazodone", when asked some questions. Patient clearly has altered mental status at this time. She has been admitted multiple times for similar complaints. Unclear if she has intentional or accidental overdose. Initial workup in the ED was significant for positive benzodiazepines, THC and amphetamines seen on urine drug screen. She admits to amphetamine use from off the streets. Shows sinus rhythm with no acute ST-T changes. CT of the head does not show any acute intracranial abnormality and CT of the cervical spine does not show any acute abnormality. Chest x-ray is also negative. She is observed on med tele floor. She has some neuralogic abnormalities for example tremors during conversations and slowed speech. At other periods of time she displays normal neurological findings. Currently patient is cooperative with staff and able to use bathroo with assist. No falls, and patient is more alert. - Constitutional Vitals: Temp Pulse Resp BP Pulse Ox 98.2 F 70 16 152/87 96 07/28/17 22:20 07/28/17 22:20 07/28/17 22:20 07/28/17 22:20 07/28/17 22:20 General appearance: Present: cooperative, A&O X 2, morbidly obese, no acute distress Exam: - Head Head exam: Present: atraumatic - Eye Eye exam: Present: EOMI - ENT ENT exam: Present: mucous membranes dry - Respiratory Respiratory exam: Present: CTAB. Absent: chest wall tenderness, rales, respiratory distress, rhonchi, wheezes, tachypnea - Cardiovascular Cardiovascular exam: Present: RRR, +S1, +S2 - GI/Abdominal GI/Abdominal exam: Present: soft. Absent: distended, firm, guarding, tenderness - Extremities Exam Extremities exam: Present: radial pulses palpable and symmetrical. Absent: calf tenderness, cyanotic, pedal edema - Neurological Exam Neurological exam: Present: altered, CN II-XII intact, no focal deficits. Absent: pronater drift, facial droop, speech deficit Additional comments: Allergic and alert and not in any distress. Seems to still have persistent confusion. Oriented to place and person, but not to time. No focal neurological deficits. Able to verbalize and follows commands, but does not answer all questions appropriately. Internal Medicine: Result - Labs CBC & Chem 7: 07/26/17 16:43 07/27/17 04:32 - ABG Interpretation ABG results: PT/INR, D-dimer PT 11.6 Seconds (9.4-12.1) 07/26/17 16:43 Consult Discharge Plan - Plan Referrals: Johnie Farley MD [Primary Care Provider] - 08/07/17 1:15 pm
[2017-07-29] MEDS: Acetaminophen 325 MG TABLET PO PRN (06:01)
[2017-07-29] MEDS: Beclomethasone 80mcg MDI IH SCH (08:08)
[2017-07-29] MEDS: levoFLOXacin 500 MG TABLET PO SCH (08:46)
[2017-07-29] MEDS: Gabapentin 300 MG CAPSULE PO SCH (08:46)
[2017-07-29] MEDS: Furosemide 20 MG TABLET PO SCH (08:46)
[2017-07-29] MEDS: *HR* Heparin 5,000 UNIT/ML VIAL SQ SCH (08:47)
[2017-07-29] MEDS: (Mirabegron [Myrbetriq] 50 MG) PO SCH (08:47)
--- NOTE | 2017-07-29 10:38 | Consult Note ---
Date of Encounter: 07/29/17 Time of Encounter: 10:00 Assessment & Recommendation (1) Depression Current visit: Yes Status: Chronic Assessment & Recommendation: continue her medications, zoloft and wellbutrin sr , follow up out patient appointment. Qualifiers: Depression Type: major depressive disorder Major depression recurrence: recurrent Active/Remission status: in remission of unspecified degree Qualified Code(s): F33.40 - Major depressive disorder, recurrent, in remission, unspecified History of Present Illness Patient: new to practice Requesting Physician: Tamara Wellington CNP Reason for consult: suspected frequent overdose. History of present illness: Ms. Copeland is a 56 year old female consulted today for suspected overdose. Ms. Copeland was seen today and evaluated , pleasant and cooperative with past history of depression , anxiety , bipolar , hypothyroidism, hyperlipidemia, multiple sclerosis , CHF. She present to ED with altered mental status and as per chart has multiple admission of similar complaints. As per her she did not OD , she does not want to hurt self, she took 4 trazodone to sleep as having problems not sleeping, she has supportive Boy friend and lives with him , states he takes good care of me. She feels zoloft and wellbutrin help me and i feel fine, states was on Abilify which was taken off 2 weeks ago she does not know the reason but does not feel any difference. she at present denies any depressive s/s and denies any suicidal ideation. Past psych history of depression for several years and stable on meds, has one suicidae attempt of OD 14 years ago. REC: Thank you for consult and involving me in her care . Please continue her medications, wellbutrin sr 300 mg AM , not bid as it might affect sleep . zoloft 100 mg am . need to change trazodone she takes 200 mg and it is not helping. can start rozerem 8 mg hs for sleep. follow up for counselling and out patient psychiatrist. Thank you again , will sign off CC: Tamara Wellington CNP Past Med Surg Social Fam HX - Past Medical History Medical history: cancer, hyperlipidemia, other - Past Psychiatric History Psychiatric history: Reports: anxiety, depression Family psychiatric history: Yes Family History of Suicide: Attempted (great aunt) - Past Surgical History Surgical History: other, appendectomy - Social History Smoking Status: Current every day smoker Smokeless Tobacco Status: No Alcohol use: none Drug use: marijuana - Family History Father Living Status: Hx Family Cardiac Disorders: Yes Hx Family Respiratory Disorders: Yes Mother Living Status: Still Living Medications & Allergies Atorvastatin [Lipitor] 40 mg PO HS 04/10/15 [History] Sertraline [Zoloft] 100 mg PO DAILY 04/10/15 [History] Albuterol Sulfate [Albuterol Inhaler] 2 puff IH Q4H PRN 09/01/16 [History] Levothyroxine [Synthroid] 112 mcg PO QAM 09/01/16 [History] Meloxicam [Mobic] 15 mg PO DAILY 09/01/16 [History] Potassium Chloride [Klor-Con 10] 20 meq PO BID 09/01/16 [History] Trazodone HCl 200 mg PO HS 09/01/16 [History] Baclofen 20 mg PO HS #0 09/04/16 [Rx] Zolpidem [Ambien] 5 mg PO HS PRN #0 09/04/16 [Rx] Fluticasone Propionate [Flovent Hfa] 1 puff IH BID 06/29/17 [History] Mirabegron [Myrbetriq] 50 mg PO DAILY 06/29/17 [History] ALPRAZolam [Xanax 1 MG Tablet] 1 mg PO BID 07/14/17 [History] Furosemide [Lasix] 40 mg PO DAILY #30 07/17/17 [Rx] Gabapentin [Neurontin] 600 mg PO TID #90 capsule 07/17/17 [Rx] Pantoprazole Sodium [Protonix] 40 mg PO BID #60 tablet. 07/17/17 [Rx] BuPROPion SR (12 HR) [Wellbutrin SR] 150 mg PO BID 07/26/17 [History] Ipratropium/Albuterol Neb [Duoneb] 3 ml IH Q6HR PRN 07/26/17 [History] levoFLOXacin [Levaquin] 500 mg PO DAILY 07/26/17 [History] predniSONE [PredniSONE] See Taper PO AD 07/26/17 [History] 3 Allergy/AdvReac Type Severity Reaction Status Date / Time Latex, Natural Rubber AdvReac Anaphylaxis Verified 07/26/17 15:25 Review of Systems Psychiatric: Reports: anxiety, abnormal sleep pattern Mental Status Exam Patient orientation: Yes Person, Yes Time, Yes Place Level of alertness: Alert Patient appearance: Appropriate Behavior: calm, cooperative Psychomotor activity: Normal Eye contact: Maintains Eye Contact Mood description: Euthymic/stable Affect description: congruent with mood Speech pattern: Normal rate Speech volume: Normal Thought process: Intact Thought content: Yes Intact Attention span: Capable of Focused Attention Patient reliability: Reliable Historian Intelligence estimate: Average Judgment: Good Insight: Full Results - Vital Signs Vital signs: Temp Pulse Resp BP Pulse Ox 97.6 F 79 18 148/60 98 07/29/17 06:48 07/29/17 06:48 07/29/17 08:08 07/29/17 06:48 07/29/17 08:08 - Labs Labs: Laboratory Last Values WBC 6.8 K/mcL (4.3-11.1) 07/26/17 16:43 RBC 4.14 M/mcL (3.82-4.97) 07/26/17 16:43 Hgb 12.1 g/dL (11.5-15.4) 07/26/17 16:43 Hct 36.6 % (35.3-44.9) 07/26/17 16:43 MCV 88.4 fL (83.0-100.0) 07/26/17 16:43 MCH 29.2 pg (28.0-33.3) 07/26/17 16:43 MCHC 33.1 g/dL (31.6-35.5) 07/26/17 16:43 RDW 14.1 % (11.5-14.5) 07/26/17 16:43 Plt Count 160 K/mcL (140-400) 07/26/17 16:43 MPV 11.2 fL (9.4-12.4) 07/26/17 16:43 Immature Gran % 0.3 % (0-4) 07/26/17 16:43 Seg Neutrophils % 72.8 % 07/26/17 16:43 Lymphocytes % 16.7 % 07/26/17 16:43 Monocytes % 8.0 % 07/26/17 16:43 Eosinophils % 1.9 % 07/26/17 16:43 Basophils % 0.3 % 07/26/17 16:43 Neutrophils # 4.9 K/mcL (1.6-8.9) 07/26/17 16:43 Lymphocytes # 1.1 K/mcL (0.6-4.6) 07/26/17 16:43 Monocytes # 0.5 K/mcL (0.0-1.3) 07/26/17 16:43 Eosinophils # 0.1 K/mcL (0.0-0.6) 07/26/17 16:43 Basophils # 0.0 K/mcL (0.0-0.2) 07/26/17 16:43 PT 11.6 Seconds (9.4-12.1) 07/26/17 16:43 INR 1.1 07/26/17 16:43 APTT 27.5 Seconds (26.0-36.0) 07/26/17 16:43 Sodium 143 mEq/L (136-145) 07/27/17 04:32 Potassium 3.5 mEq/L (3.5-4.5) 07/27/17 04:32 Chloride 105 mEq/L (98-109) 07/27/17 04:32 Carbon Dioxide 27 mEq/L (19-29) 07/27/17 04:32 BUN 12 mg/dL (7-20) 07/27/17 04:32 Creatinine 0.84 mg/dL (0.57-1.11) 07/27/17 04:32 Est GFR ( Amer) > 60 (> 60) 07/27/17 04:32 Est GFR (Non-Af Amer) > 60 (> 60) 07/27/17 04:32 BUN/Creatinine Ratio 14 (6-26) 07/27/17 04:32 Glucose 100 mg/dL (70-99) H 07/27/17 04:32 POC Glucose 111 (58-89) H 07/27/17 07:35 Calculated Osmolality 296 (280-300) 07/27/17 04:32 Calcium 9.0 mg/dL (8.6-10.8) 07/27/17 04:32 Total Bilirubin 0.3 mg/dL (0.2-1.2) 07/26/17 16:43 Direct Bilirubin 0.1 mg/dL (0.0-0.5) 07/26/17 16:43 Indirect Bilirubin 0.2 mg/dL (0.0-1.2) 07/26/17 16:43 AST 10 Units/L (5-34) 07/26/17 16:43 ALT 19 Units/L (0-55) 07/26/17 16:43 Alkaline Phosphatase 108 Units/L (38-126) 07/26/17 16:43 Troponin I 0.01 ng/mL (0-0.03) 07/26/17 16:43 Serum Total Protein 6.6 g/dL (6.0-8.3) 07/26/17 16:43 Albumin 3.2 g/dL (3.5-5.0) L 07/26/17 16:43 Globulin 3.4 g/dL (2.4-3.5) 07/26/17 16:43 Albumin/Globulin Ratio 0.9 (1.1-2.2) L 07/26/17 16:43 TSH 5.350 mcIU/mL (0.350-4.840) H 07/26/17 16:43 Urine Color Yellow (Yellow) 07/26/17 16:14 Urine Clarity Cloudy (Clear) A 07/26/17 16:14 Urine pH 7.5 pH Units (5.0-8.0) 07/26/17 16:14 Ur Specific [place] 1.024 (1.010-1.025) 07/26/17 16:14 Urine Protein 30 mg/dL (Neg-Trace) H 07/26/17 16:14 Urine Glucose (UA) Normal mg/dL (Normal) 07/26/17 16:14 Urine Ketones Negative mg/dL (Negative) 07/26/17 16:14 Urine Blood Negative (Negative) 07/26/17 16:14 Urine Nitrite Negative (Negative) 07/26/17 16:14 Urine Bilirubin Negative (Negative) 07/26/17 16:14 Urine Urobilinogen Normal mg/dL (Normal) 07/26/17 16:14 Ur Leukocyte Esterase Trace (Negative) H 07/26/17 16:14 Urine Microscopic RBC 0-3 per hpf (0-3) 07/26/17 16:14 Urine Microscopic WBC 5-15 per hpf (0-3) H 07/26/17 16:14 Ur Squamous Epith Cells Many per lpf (None-Few) H 07/26/17 16:14 Urine Bacteria Few per hpf (None-Few) 07/26/17 16:14 Hyaline Casts None Seen per lpf (None-Few) 07/26/17 16:14 Urine Mucus Few (Few) 07/26/17 16:14 Ur Culture Indicated? YES (NO) A 07/26/17 16:14 Stl C. diff Tox B Gene Negative (Negative) 07/27/17 17:55 Urine Opiates Screen Negative ng/mL (Qfcejw=774) 07/26/17 16:17 Ur Barbiturates Screen Negative ng/mL (Cllvbu=553) 07/26/17 16:17 Ur Phencyclidine Scrn Negative ng/mL (Cutoff=25) 07/26/17 16:17 Ur Amphetamines Screen Positive ng/mL (Nmwzuz=2822) H 07/26/17 16:17 U Benzodiazepines Scrn Positive ng/mL (Mlduiy=699) H 07/26/17 16:17 Urine Cocaine Screen Negative ng/mL (Cutoff= 300) 07/26/17 16:17 U Marijuana (THC) Screen Positive ng/mL (Cutoff = 50) H 07/26/17 16:17 Ethyl Alcohol < 10 mg/dL (0-10) 07/26/17 16:43 Specimen Rejected Not Liquid 07/27/17 09:30 Consult Discharge Plan - Plan Referrals: Johnie Farley MD [Primary Care Provider] - 08/07/17 1:15 pm
[2017-07-29 10:45] VITALS: BP 153/93
--- NOTE | 2017-07-29 12:32 | Neurology - Consult Note ---
Date of Encounter: 07/29/17 Time of Encounter: 09:50 Assessment and Plan (1) Multiple sclerosis Current Visit: Yes Status: Acute This patient who has an history of multiple sclerosis is being admitted with this overdose no at this time it does not look like an intentional overdose according to her she was trying to sleep and is taking extra medication. No evidence of any exacerbation of her multiple sclerosis symptoms and particularly no new focal motor weakness reported she also denies any diplopia or any other clinical signs to be concern of MS exacerbation. Do not think that she would require any imaging studies at this time CT scan of the head is negative for any other acute abnormality she did have an MRI a few weeks ago no need for any repeat MRI. Also should not recommend any pulse of steroids at this time. Overall from MS standpoint she is a stable continue on the immune modulating medication that she is on with follow-up with her primary care neurologist (2) Altered mental status Current Visit: Yes Status: Acute Was likely related to overdose of medication as well as polysubstance abuse has been resolved no evidence of any [employer] infection. No further workup is indicated at this time (3) Medication overdose Current Visit: No Status: Acute Psychiatry has been consulted and followed the recommendations she does have a history of bipolar disorder and anxiety depression. Outpatient follow-up as well Qualifiers: Encounter type: initial encounter Injury intent: undetermined intent Qualified Code(s): T50.904A - Poisoning by unspecified drugs, medicaments and biological substances, undetermined, initial encounter (4) Polysubstance abuse Current Visit: Yes Status: Acute History of Present Illness HPI: Ms. Copeland is a 56 year old female with pmh MS, of hypothyroidism, hyperlipidemia, bipolar disorder, anxiety, schizophrenia and depression. Patient presents to the ED for altered mental status, after taking multiple doses of trazadone to help her sleep. At the time of presentation to the emergency room patient was confused and not she seems to be back to her baseline according to the patient that she has taken multiple doses of medication in order to help her sleep she is quite sure about trazodone but may have taken gabapentin as well . Denies chest pain or shortness of breath. Initial workup in the ED is significant for positive benzodiazepines, THC and amphetamines seen on urine drug screen. Shows sinus rhythm with no acute ST-T changes. CT of the head does not show any acute intracranial abnormality and CT of the cervical spine does not show any acute abnormality. Patient has a history of flow multiple sclerosis has been following up in neurology with Dr. Mccray, has been maintained on ABAGIO immune modulating medication. She was admitted earlier in the hospital because of increasing weakness and has received IV steroids Past Med Surg Social Fam HX - Past Medical History Medical history: cancer, hyperlipidemia, other Psychiatric history: anxiety, depression - Past Surgical History Surgical History: other, appendectomy - Social History Smoking Status: Current every day smoker Smokeless Tobacco Status: No Alcohol use: none Drug use: marijuana - Family History Father Living Status: Hx Family Cardiac Disorders: Yes Hx Family Respiratory Disorders: Yes Mother Living Status: Still Living Medications and Allergies Atorvastatin [Lipitor] 40 mg PO HS 04/10/15 [History] Sertraline [Zoloft] 100 mg PO DAILY 04/10/15 [History] Albuterol Sulfate [Albuterol Inhaler] 2 puff IH Q4H PRN 09/01/16 [History] Levothyroxine [Synthroid] 112 mcg PO QAM 09/01/16 [History] Meloxicam [Mobic] 15 mg PO DAILY 09/01/16 [History] Potassium Chloride [Klor-Con 10] 20 meq PO BID 09/01/16 [History] Trazodone HCl 200 mg PO HS 09/01/16 [History] Baclofen 20 mg PO HS #0 09/04/16 [Rx] Zolpidem [Ambien] 5 mg PO HS PRN #0 09/04/16 [Rx] Fluticasone Propionate [Flovent Hfa] 1 puff IH BID 06/29/17 [History] Mirabegron [Myrbetriq] 50 mg PO DAILY 06/29/17 [History] ALPRAZolam [Xanax 1 MG Tablet] 1 mg PO BID 07/14/17 [History] Furosemide [Lasix] 40 mg PO DAILY #30 07/17/17 [Rx] Gabapentin [Neurontin] 600 mg PO TID #90 capsule 07/17/17 [Rx] Pantoprazole Sodium [Protonix] 40 mg PO BID #60 tablet. 07/17/17 [Rx] BuPROPion SR (12 HR) [Wellbutrin SR] 150 mg PO BID 07/26/17 [History] Ipratropium/Albuterol Neb [Duoneb] 3 ml IH Q6HR PRN 07/26/17 [History] levoFLOXacin [Levaquin] 500 mg PO DAILY 07/26/17 [History] predniSONE [PredniSONE] See Taper PO AD 07/26/17 [History] 3 Allergy/AdvReac Type Severity Reaction Status Date / Time Latex, Natural Rubber AdvReac Anaphylaxis Verified 07/26/17 15:25 All Systems: A 10-system review of systems was performed and is negative for pertinent findings except as documented above in the HPI. Physical Examination - Vital Signs Vital Signs: Initial Vital Signs Temp Pulse Resp BP Pulse Ox 97.3 F L 80 20 135/77 95 07/26/17 15:27 07/26/17 15:27 07/26/17 15:27 07/26/17 15:27 07/26/17 15:27 - Constitutional General appearance: comfortable - Neurologic Sensorimotor examination: intact Detailed motor examination: grossly full strength in all extremities Motor examination - right side: 4/5: hip flexors, tibialis Anterior, quadriceps , toe extension (EHL), plantarflexion Motor examination - left side: 4/5: quadriceps, tibialis Anterior, toe extension (EHL), plantarflexion Detailed sensory examination: intact Reflex and gait examination: intact Reflexes: Biceps: 2+, Triceps: 2+, Brachioradialis: 2+, Patella: 2+, Achilles: 2 + Mental Status Examination: awake, alert, oriented to person, oriented to place, oriented to time, follows commands appropriately, answers questions appropriately, no agnosia, no aphasia, no aproxia Cranial nerve examination: PERRL (mild dysmetria), EOMI, visual morgan intact, corneal reflexes brisk symmetrically, sensory to face intact, mastication intact , no facial asymmetry is present, no dysarthria, hearing is intact symmetrically , soft palate elevates bilaterally upon phonation, gag reflex intact, flexes SCM and trapezius muscles symmetrically with full power, tongue protrudes midline, no atrophy or facial fasiculations present Results - Laboratory Findings CBC and BMP: 07/26/17 16:43 07/27/17 04:32 Abnormal lab findings: Abnormal lab results Glucose 100 mg/dL (70-99) H 07/27/17 04:32 POC Glucose 111 (58-89) H 07/27/17 07:35 Albumin 3.2 g/dL (3.5-5.0) L 07/26/17 16:43 Albumin/Globulin Ratio 0.9 (1.1-2.2) L 07/26/17 16:43 TSH 5.350 mcIU/mL (0.350-4.840) H 07/26/17 16:43 Urine Clarity Cloudy (Clear) A 07/26/17 16:14 Urine Protein 30 mg/dL (Neg-Trace) H 07/26/17 16:14 Ur Leukocyte Esterase Trace (Negative) H 07/26/17 16:14 Urine Microscopic WBC 5-15 per hpf (0-3) H 07/26/17 16:14 Ur Squamous Epith Cells Many per lpf (None-Few) H 07/26/17 16:14 Ur Culture Indicated? YES (NO) A 07/26/17 16:14 Ur Amphetamines Screen Positive ng/mL (Pvdrdm=1521) H 07/26/17 16:17 U Benzodiazepines Scrn Positive ng/mL (Ipukrc=686) H 07/26/17 16:17 U Marijuana (THC) Screen Positive ng/mL (Cutoff = 50) H 07/26/17 16:17 Consult Discharge Plan - Plan Referrals: Johnie Farley MD [Primary Care Provider] - 08/07/17 1:15 pm
--- NOTE | 2017-07-29 13:17 | Discharge Summary ---
Date of Encounter: 07/29/17 Time of Encounter: 13:13 - Discharge Diagnosis (1) Altered mental status Priority: Primary Status: Acute Qualifiers: Altered mental status type: unspecified Qualified Code(s): R41.82 - Altered mental status, unspecified (2) Polypharmacy Priority: Secondary Status: Acute (3) Multiple sclerosis Priority: Secondary Status: Chronic - Discharge Medications Home Medications: Atorvastatin [Lipitor] 40 mg PO HS 04/10/15 [History] Sertraline [Zoloft] 100 mg PO DAILY 04/10/15 [History] Albuterol Sulfate [Albuterol Inhaler] 2 puff IH Q4H PRN 09/01/16 [History] Levothyroxine [Synthroid] 112 mcg PO QAM 09/01/16 [History] Meloxicam [Mobic] 15 mg PO DAILY 09/01/16 [History] Potassium Chloride [Klor-Con 10] 20 meq PO BID 09/01/16 [History] Baclofen 20 mg PO HS #0 09/04/16 [Rx] Fluticasone Propionate [Flovent Hfa] 1 puff IH BID 06/29/17 [History] Mirabegron [Myrbetriq] 50 mg PO DAILY 06/29/17 [History] ALPRAZolam [Xanax 1 MG Tablet] 1 mg PO BID 07/14/17 [History] Furosemide [Lasix] 40 mg PO DAILY #30 07/17/17 [Rx] Pantoprazole Sodium [Protonix] 40 mg PO BID #60 tablet. 07/17/17 [Rx] BuPROPion SR (12 HR) [Wellbutrin SR] 150 mg PO BID 07/26/17 [History] Ipratropium/Albuterol Neb [Duoneb] 3 ml IH Q6HR PRN 07/26/17 [History] levoFLOXacin [Levaquin] 500 mg PO DAILY 07/26/17 [History] predniSONE [PredniSONE] See Taper PO AD 07/26/17 [History] Gabapentin [Neurontin] 300 mg PO TID #45 capsule 07/29/17 [Rx] Ramelteon [Rozerem] 8 mg PO HS #15 tablet 07/29/17 [Rx] Allergies/Adverse Reactions: 3 Allergy/AdvReac Type Severity Reaction Status Date / Time Latex, Natural Rubber AdvReac Anaphylaxis Verified 07/26/17 15:25 Procedures/tests Complete & Pending: Procedures Performed prior 72 hours Category Date Time Status ECG 12 lead ECG [ECG] AM 0600 Y 07/27/17 06:00 Ordered Date of admission: 07/26/17 19:34 Primary care physician: Johnie Farley MD Consults: 07/27/17 11:21 Consult to Physical Therapy [CONS] Routine Comment: Evaluate, develop and implement POC Reason for Consult: re-admission, possible placement 07/27/17 11:22 Consult to Occupational Therapy [CONS] Routine Comment: Evaluate, develop and implement POC Reason for Consult: re-admission, possible placement Consult to Engine Test Cell Technician [CONS] Routine Reason for SW Consult: placement 07/28/17 11:24 Consult to Psychiatry [CONS] Routine Consulting Provider: Psychiatry Afia Reason for Consult: Suspected frequent overdose, possibly somatisation or conversion. Call Completed: Yes 07/28/17 15:21 Consult to Psychiatry [CONS] Routine Consulting Provider: Psychiatry Afia Reason for Consult: Suspected frequent overdose, AMS. Call Completed: Yes 07/29/17 10:34 Consult to Physical Therapy [CONS] Routine Comment: Evaluate, develop and implement POC Reason for Consult: Disposition planning. Therapy - weakness in bed. OT [Consult to Occupational Therapy] [CONS] Routine Comment: Evaluate, develop and implement POC Reason for Consult: Frequent falls, dispo planning, weakness. Discharging clinician: Tyesha Stephens - Patient Status Disposition: Home, Self-Care Condition: Fair Functional capacity at discharge: independent ambulation Overall status at discharge: patient is progressing back to baseline - Discharge Instructions Follow Up With: Johnie Farley MD [Primary Care Provider] - 08/07/17 1:15 pm - Diet and Activity Activity: as per physical therapy Diet: advance to your usual diet Hospital course: Ms. Copeland is a 56 year old female with past medical history of hypothyroidism , hyperlipidemia, multiple sclerosis, diastolic CHF, bipolar disorder, anxiety, schizophrenia and depression. Patient presented to the ED for altered mental status. On arrival to ED she was awake and alert and in no acute distress. She was able to verbalize and follows commands, but was not answering questions appropriately. She was alert and oriented to person and place. Symptoms of confusion apparently started the night prior to arrival. Patient was apparently passing out. There is concern about accidental overdose with possibly Gabapentin, Trazodone or Baclofen. She did not have chest pain or shortness of breath. Patient answers "gabapentin" or "trazodone", when asked some questions. She has been admitted multiple times for similar complaints. It was unclear if she has intentional or accidental overdose. Initial workup in the ED is significant for positive benzodiazepines, THC and amphetamines seen on urine drug screen. Shows sinus rhythm with no acute ST-T changes. CT of the head does not show any acute intracranial abnormality and CT of the cervical spine does not show any acute abnormality. She was observed in hospital for monitoring and supportive care. She was placed NPO, given IVF and had neurochecks done. Status did improve. Psychiatry was consulted in regards to medication overdose and suggested discontinuing Trazodone. Neurology was consulted and deemed this is not likely from multiple sclerosis. Her mental status improved after one day of observation. PT evaluated patient and she was safe to be discharged home in stable condition. Trazodone will be discontinued Ambien will be discontinued She will be started on Rozerem for sleep Gabapentin will be lowered to 300 mg TID (Instead of 600 TID), and will not be abruptly discontinued to prevent withdrawal. Xanax dose should be lowered, Suggest to have this discussion with primary care provider. She has Neurology outpatient visit following. She was encouraged to stay with this appointment. - Time Spent with Patient Total time spent providing and/or coordinating discharge services: - Constitutional Vitals: Temp Pulse Resp BP Pulse Ox 98.4 F 84 16 153/93 98 07/29/17 10:45 07/29/17 10:45 07/29/17 12:11 07/29/17 10:45 07/29/17 12:11 General appearance: Present: cooperative, A&O X 2, morbidly obese, no acute distress Exam: - Head Head exam: Present: atraumatic - Eye Eye exam: Present: EOMI - ENT ENT exam: Present: mucous membranes dry - Respiratory Respiratory exam: Present: CTAB. Absent: chest wall tenderness, rales, respiratory distress, rhonchi, wheezes, tachypnea - Cardiovascular Cardiovascular exam: Present: RRR, +S1, +S2 - GI/Abdominal GI/Abdominal exam: Present: soft. Absent: distended, firm, guarding, tenderness - Extremities Exam Extremities exam: Present: radial pulses palpable and symmetrical. Absent: calf tenderness, cyanotic, pedal edema - Neurological Exam Neurological exam: Present: altered, CN II-XII intact, no focal deficits. Absent: pronater drift, facial droop, speech deficit Additional comments: Allergic and alert and not in any distress. Seems to still have persistent confusion. Oriented to place and person, but not to time. No focal neurological deficits. Able to verbalize and follows commands, but does not answer all questions appropriately. - VTE Reasons for not Prescribing Prophylaxis: Treatment not Indicated - Low risk for VTE
== END 2017-07-29 14:25 | disposition home or self-care (01) ==
LOC: 3BNU 15:24 → EMEROO 15:24 → 3BNU 20:01
PROVIDERS: ADMIT Student in an Organized Health Care Education/Training Program; ATTEND Registered Nurse

== ENCOUNTER 2017-08-21 18:38 | Observation (INO) ==
[2017-08-21] MEDS ORDERED: 0.9 % Sodium Chloride 1,000 ML IVC ONE (19:22)
--- NOTE | 2017-08-21 19:27 | Emergency Department Note ---
Disposition Clinical Impression: Altered mental status Qualifiers: Altered mental status type: unspecified Qualified Code(s): R41.82 - Altered mental status, unspecified Hypothyroid Qualifiers: Hypothyroidism type: unspecified Qualified Code(s): E03.9 - Hypothyroidism, unspecified Disposition: Admitted As Inpatient Condition: Fair Time of Disposition: 22:02 Altered Mental Status HPI - General Chief Complaint: ED Altered Mental Status Stated Complaint: AMS Time Seen by Provider: 08/21/17 19:22 Source: patient, EMS Mode of arrival: EMS Limitations: altered mental status Nursing Notes Reviewed: Yes Vital Signs Reviewed: Yes - History of Present Illness HPI Narrative: 57-year-old female presents with altered mental status, unknown last well, squad was called secondary to stringent behavior she is also taking about 10 of her gabapentin's, she has had multiple presentations of the been similar, the patient gives some history but she mostly denies any review of system questions , she states that she is on no medications no history of chest pain no current chest pain abdominal pain and headache. But she is alert and oriented 1, so history is obtained from old records reveal an EMS report. MD complaint: altered mental status, confusion Onset (ago): unknown Consistency of Symptoms: constant Associated symptoms: Denies: chest pain, cough, diaphoresis, fever, chills, loss of appetite, malaise, nausea/vomiting, rash, weakness, foul smelling urine , difficulty walking - Related Data Home Medications Medication Instructions Recorded Confirmed Atorvastatin [Lipitor] 40 mg PO HS 04/10/15 08/16/17 Sertraline [Zoloft] 100 mg PO DAILY 04/10/15 08/16/17 Albuterol Sulfate [Albuterol 2 puff IH Q4H PRN 09/01/16 08/16/17 Inhaler] Levothyroxine [Synthroid] 112 mcg PO QAM 09/01/16 08/16/17 Potassium Chloride [Klor-Con 10] 20 meq PO BID 09/01/16 08/16/17 Mirabegron [Myrbetriq] 50 mg PO DAILY 06/29/17 08/16/17 ALPRAZolam [Xanax 1 MG Tablet] 1 mg PO BID 07/14/17 08/16/17 BuPROPion SR (12 HR) [Wellbutrin 150 mg PO BID 07/26/17 08/16/17 SR] Ipratropium/Albuterol Neb [Duoneb] 3 ml IH Q6HR PRN 07/26/17 08/16/17 Previous Rx's Medication Instructions Recorded Baclofen 20 mg PO HS #0 09/04/16 Furosemide [Lasix] 40 mg PO DAILY #30 07/17/17 Pantoprazole Sodium [Protonix] 40 mg PO BID #60 tablet. 07/17/17 Gabapentin [Neurontin] 300 mg PO TID #45 capsule 07/29/17 Nicotine Patch [Nicoderm] 21 mg TD DAILY #30 patch.td24 08/16/17 Oxybutynin [Ditropan] 5 mg PO DAILY #30 tablet 08/16/17 Allergies Allergy/AdvReac Type Severity Reaction Status Date / Time No Known Allergies Allergy Verified 08/21/17 18:39 Limitations: ROS unobtainable due to patients medical condition Past Medical History - Past Medical History Source: old records reviewed, obtained from family, nursing notes reviewed Medical history: Reports: cancer, hyperlipidemia, other Surgical history: Reports: other, appendectomy Psychiatric history: Reports: anxiety, depression 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 - Social History Smoking Status: Current every day smoker Smokeless Tobacco Status: No Alcohol use: Reports: none Drug use: Reports: marijuana Physical Exam Constitutional: Pleasantly confused middle-aged female in no acute distress morbidly obese vital signs stable Eyes: PERRLA, sclera anicteric ENT & Mouth: MM dry poor dentition Neck: normal inspection, neck is supple Resp: CTA bilaterally, no resp distress CV: RRR, no m/g/r GI: normal inspection, soft, no guarding or rigidity Neuro: A&O1, CNII-XII grossly intact, REYES 5 out of 5 muscle strength upper and lower extremities, no nystagmus, EOMI intact PERRLA Skin: on limited exam, skin intact with no rashes or lesions - General Limitations: altered mental status General appearance: alert Course Course Narrative: 57-year-old female with altered mental status, history of multiple similar presentations I was able to review the squad reportedly stated unknown last unwell, patient was able to ambulate, she only said there hurts when she is walking, on my exam she is only able to give one-word answers she denies review of systems questions, will get follow up status workup CBC chest x-ray BMP troponin EKG TSH pneumonia drug screen as well as CT had urinalysis - Reevaluation(s) Reevaluation #1: CT scan with no evidence of acute intercranial pathology, lab work normal except for mildly elevated TSH, history of hypothyroid admitted to Dr. Peraza for altered mental status with no clear baseline mental state. Vital Signs Temperature 98.2 F 08/21/17 18:40 Pulse Rate 70 08/21/17 18:40 Respiratory Rate 15 08/21/17 18:40 Blood Pressure 141/79 08/21/17 18:40 O2 Sat by Pulse Oximetry 100 08/21/17 18:40 Temperature 98.2 F 08/21/17 18:40 Pulse Rate 70 08/21/17 21:34 Respiratory Rate 18 08/21/17 21:34 Blood Pressure 132/53 08/21/17 21:34 O2 Sat by Pulse Oximetry 99 08/21/17 21:34 Oxygen Delivery Oxygen Delivery Room Air Altered Mental Status - Differential Diagnosis Likely: alcoholic intoxication, hypoglycemia, hyponatremia - Medical Records Medical records reviewed: Yes I reviewed the patient's medical records. - Lab Data Lab results reviewed: Yes I reviewed the patient's lab results. Result diagrams: 08/21/17 19:16 08/21/17 19:16 Lab Results 08/21/17 08/21/17 08/21/17 Range/Units 18:44 19:16 19:16 WBC 7.6 (4.3-11.1) K/mcL RBC 4.11 (3.82-4.97) M/mcL Hgb 12.1 (11.5-15.4) g/dL Hct 37.6 (35.3-44.9) % MCV 91.5 (83.0-100.0) fL MCH 29.4 (28.0-33.3) pg MCHC 32.2 (31.6-35.5) g/dL RDW 15.5 H (11.5-14.5) % Plt Count 121 L (140-400) K/mcL MPV 11.6 (9.4-12.4) fL Immature Gran % 0.4 (0-4) % Seg Neutrophils % 78.6 % Lymphocytes % 11.9 % Monocytes % 6.9 % Eosinophils % 2.1 % Basophils % 0.1 % Neutrophils # 6.0 (1.6-8.9) K/mcL Lymphocytes # 0.9 (0.6-4.6) K/mcL Monocytes # 0.5 (0.0-1.3) K/mcL Eosinophils # 0.2 (0.0-0.6) K/mcL Basophils # 0.0 (0.0-0.2) K/mcL PT 10.7 (9.4-12.1) Seconds INR 1.0 APTT 26.3 (26.0-36.0) Seconds Sodium (136-145) mEq/L Potassium (3.5-5.1) mEq/L Chloride (98-107) mEq/L Carbon Dioxide (23-29) mEq/L BUN (6-20) mg/dL Creatinine (0.60-1.20) mg/dL Est GFR ( Amer) (> 60) Est GFR (Non-Af Amer) (> 60) BUN/Creatinine Ratio (6-26) Glucose (70-105) mg/dL POC Glucose 90 H (58-89) Calculated Osmolality (280-300) Calcium (8.6-10.3) mg/dL Total Bilirubin (0.3-1.0) mg/dL Direct Bilirubin (0.0-0.2) mg/dL Indirect Bilirubin (0.0-1.2) mg/dL AST (13-39) Units/L ALT (7-52) Units/L Alkaline Phosphatase (34-104) Units/L Ammonia (16-53) mcmol/L Troponin I (< 0.04) ng/mL Serum Total Protein (6.4-8.9) g/dL Albumin (3.5-5.7) g/dL Globulin (2.4-3.5) g/dL Albumin/Globulin Ratio (1.1-2.2) TSH (0.340-5.600) mcIU/mL Urine Color (Yellow) Urine Clarity (Clear) Urine pH (5.0-8.0) pH Units Ur Specific Leupp (1.010-1.025) Urine Protein (Neg-Trace) mg/dL Urine Glucose (UA) (Normal) mg/dL Urine Ketones (Negative) mg/dL Urine Blood (Negative) Urine Nitrite (Negative) Urine Bilirubin (Negative) Urine Urobilinogen (Normal) mg/dL Ur Leukocyte Esterase (Negative) Urine Microscopic RBC (0-3) per hpf Urine Microscopic WBC (0-3) per hpf Ur Squamous Epith Cells (None-Few) per lpf Urine Bacteria (None-Few) per hpf Hyaline Casts (None-Few) per lpf Ur Culture Indicated? (NO) Urine Opiates Screen (Hemisq=704) ng/mL Ur Barbiturates Screen (Kiqpuj=538) ng/mL Ur Phencyclidine Scrn (Cutoff=25) ng/mL Ur Amphetamines Screen (Lmhpbf=1373) ng/mL U Benzodiazepines Scrn (Dsozuu=579) ng/mL Urine Cocaine Screen (Cutoff= 300) ng/mL U Marijuana (THC) Screen (Cutoff = 50) ng/mL Ethyl Alcohol (0-10) mg/dL 08/21/17 08/21/17 08/21/17 Range/Units 19:16 19:16 19:16 WBC (4.3-11.1) K/mcL RBC (3.82-4.97) M/mcL Hgb (11.5-15.4) g/dL Hct (35.3-44.9) % MCV (83.0-100.0) fL MCH (28.0-33.3) pg MCHC (31.6-35.5) g/dL RDW (11.5-14.5) % Plt Count (140-400) K/mcL MPV (9.4-12.4) fL Immature Gran % (0-4) % Seg Neutrophils % % Lymphocytes % % Monocytes % % Eosinophils % % Basophils % % Neutrophils # (1.6-8.9) K/mcL Lymphocytes # (0.6-4.6) K/mcL Monocytes # (0.0-1.3) K/mcL Eosinophils # (0.0-0.6) K/mcL Basophils # (0.0-0.2) K/mcL PT (9.4-12.1) Seconds INR APTT (26.0-36.0) Seconds Sodium 143 (136-145) mEq/L Potassium 3.5 (3.5-5.1) mEq/L Chloride 114 H (98-107) mEq/L Carbon Dioxide 27 (23-29) mEq/L BUN 13 (6-20) mg/dL Creatinine 0.90 (0.60-1.20) mg/dL Est GFR ( Amer) > 60 (> 60) Est GFR (Non-Af Amer) > 60 (> 60) BUN/Creatinine Ratio 14 (6-26) Glucose 90 (70-105) mg/dL POC Glucose (58-89) Calculated Osmolality 296 (280-300) Calcium 9.4 (8.6-10.3) mg/dL Total Bilirubin 0.5 (0.3-1.0) mg/dL Direct Bilirubin 0.0 (0.0-0.2) mg/dL Indirect Bilirubin 0.5 (0.0-1.2) mg/dL AST 10 L (13-39) Units/L ALT 14 (7-52) Units/L Alkaline Phosphatase 90 (34-104) Units/L Ammonia 24 (16-53) mcmol/L Troponin I < 0.03 (< 0.04) ng/mL Serum Total Protein 5.9 L (6.4-8.9) g/dL Albumin 3.8 (3.5-5.7) g/dL Globulin 2.1 L (2.4-3.5) g/dL Albumin/Globulin Ratio 1.8 (1.1-2.2) TSH 8.019 H (0.340-5.600) mcIU/mL Urine Color (Yellow) Urine Clarity (Clear) Urine pH (5.0-8.0) pH Units Ur Specific Leupp (1.010-1.025) Urine Protein (Neg-Trace) mg/dL Urine Glucose (UA) (Normal) mg/dL Urine Ketones (Negative) mg/dL Urine Blood (Negative) Urine Nitrite (Negative) Urine Bilirubin (Negative) Urine Urobilinogen (Normal) mg/dL Ur Leukocyte Esterase (Negative) Urine Microscopic RBC (0-3) per hpf Urine Microscopic WBC (0-3) per hpf Ur Squamous Epith Cells (None-Few) per lpf Urine Bacteria (None-Few) per hpf Hyaline Casts (None-Few) per lpf Ur Culture Indicated? (NO) Urine Opiates Screen (Nfyllr=439) ng/mL Ur Barbiturates Screen (Ybfekj=627) ng/mL Ur Phencyclidine Scrn (Cutoff=25) ng/mL Ur Amphetamines Screen (Rblcbh=2090) ng/mL U Benzodiazepines Scrn (Jgczdo=900) ng/mL Urine Cocaine Screen (Cutoff= 300) ng/mL U Marijuana (THC) Screen (Cutoff = 50) ng/mL Ethyl Alcohol < 10 (0-10) mg/dL 08/21/17 08/21/17 Range/Units 20:09 20:09 WBC (4.3-11.1) K/mcL RBC (3.82-4.97) M/mcL Hgb (11.5-15.4) g/dL Hct (35.3-44.9) % MCV (83.0-100.0) fL MCH (28.0-33.3) pg MCHC (31.6-35.5) g/dL RDW (11.5-14.5) % Plt Count (140-400) K/mcL MPV (9.4-12.4) fL Immature Gran % (0-4) % Seg Neutrophils % % Lymphocytes % % Monocytes % % Eosinophils % % Basophils % % Neutrophils # (1.6-8.9) K/mcL Lymphocytes # (0.6-4.6) K/mcL Monocytes # (0.0-1.3) K/mcL Eosinophils # (0.0-0.6) K/mcL Basophils # (0.0-0.2) K/mcL PT (9.4-12.1) Seconds INR APTT (26.0-36.0) Seconds Sodium (136-145) mEq/L Potassium (3.5-5.1) mEq/L Chloride (98-107) mEq/L Carbon Dioxide (23-29) mEq/L BUN (6-20) mg/dL Creatinine (0.60-1.20) mg/dL Est GFR ( Amer) (> 60) Est GFR (Non-Af Amer) (> 60) BUN/Creatinine Ratio (6-26) Glucose (70-105) mg/dL POC Glucose (58-89) Calculated Osmolality (280-300) Calcium (8.6-10.3) mg/dL Total Bilirubin (0.3-1.0) mg/dL Direct Bilirubin (0.0-0.2) mg/dL Indirect Bilirubin (0.0-1.2) mg/dL AST (13-39) Units/L ALT (7-52) Units/L Alkaline Phosphatase (34-104) Units/L Ammonia (16-53) mcmol/L Troponin I (< 0.04) ng/mL Serum Total Protein (6.4-8.9) g/dL Albumin (3.5-5.7) g/dL Globulin (2.4-3.5) g/dL Albumin/Globulin Ratio (1.1-2.2) TSH (0.340-5.600) mcIU/mL Urine Color Dark Yellow (Yellow) Urine Clarity Cloudy A (Clear) Urine pH 6.0 (5.0-8.0) pH Units Ur Specific Leupp 1.027 H (1.010-1.025) Urine Protein Trace (Neg-Trace) mg/dL Urine Glucose (UA) Normal (Normal) mg/dL Urine Ketones Negative (Negative) mg/dL Urine Blood Negative (Negative) Urine Nitrite Negative (Negative) Urine Bilirubin Small H (Negative) Urine Urobilinogen Normal (Normal) mg/dL Ur Leukocyte Esterase Negative (Negative) Urine Microscopic RBC 0-3 (0-3) per hpf Urine Microscopic WBC 5-15 H (0-3) per hpf Ur Squamous Epith Cells Many H (None-Few) per lpf Urine Bacteria None Seen (None-Few) per hpf Hyaline Casts Few (None-Few) per lpf Ur Culture Indicated? NO (NO) Urine Opiates Screen Negative (Cmllgf=025) ng/mL Ur Barbiturates Screen Negative (Caiqhy=208) ng/mL Ur Phencyclidine Scrn Negative (Cutoff=25) ng/mL Ur Amphetamines Screen Negative (Pslhtf=0406) ng/mL U Benzodiazepines Scrn Negative (Odwtye=855) ng/mL Urine Cocaine Screen Negative (Cutoff= 300) ng/mL U Marijuana (THC) Screen Positive H (Cutoff = 50) ng/mL Ethyl Alcohol (0-10) mg/dL - Radiology Data Radiology results reviewed: Yes I reviewed the patient's radiology results. Chest X-Ray 08/21/17 19:22 IMPRESSION: No acute process. D/ / Javi Griffin MD / Javi Griffin MD Interpreting Provider: Javi Griffin MD Head CT 08/21/17 19:23 IMPRESSION: No acute intracranial abnormality. Patchy hypodensities in the periventricular and subcortical white matter, which are nonspecific, but may represent chronic small vessel ischemic change. D/ / Arsen Tamez MD / Arsen Tmaez MD Interpreting Provider: Arsen Tamez MD - EKG Data EKG attestation: Yes I reviewed and interpreted this EKG. EKG shows normal: sinus rhythm Rate: normal (60 bpm VA 183 QRS [address] segment elevations or depressions) TPA Checklist - LKW: 3-4.5 hrs Add. Warnings/Precautions Patient/family understanding: The patient/family members have been counseled and understood the risk, benefit , and alternatives of treatment. Attestation Statement - Attestation Attestation: I, Srinath Mejia MD, personally evaluated this patient and discussed their management with the resident physician. I reviewed the resident's note and agree with the documented findings, medical decision making, and plan of care. 57-year-old female presents to the emergency department for altered mental status. Last known normal is unknown. EMS apparently were called to the house because of a fall and she could not get up out of the floor but they found her confused with difficulty speaking. Patient apparently has a history of similar episode secondary to overdosing on her gabapentin. No gross focal deficits on exam but patient does seem to have an expressive aphasia keeps repeating words. She admits to some headache. She denies any other pain or injury. On examination patient is a well-developed well-nourished female in no acute distress. She is alert and oriented to person and place. There is no cyanosis or diaphoresis. No obvious head trauma. Neck is supple and nontender. Chest is nontender to palpation. Breath sounds are clear and equal bilaterally. Heart regular rate and rhythm. Abdomen soft and nontender with normal bowel sounds. No gross focal neurological deficits. Labs reviewed. Chest x-ray negative. Head CT shows no acute intracranial abnormality. The hospitalist, Dr. Peraza, was consulted and accepted admission of the patient.
[2017-08-21 19:40] LABS: Basophils % 0.1 %; Eosinophils # 0.2 K/mcL (0.0-0.6); Eosinophils % 2.1 %; Hematocrit 37.6 % (35.3-44.9); Hemoglobin 12.1 g/dL (11.5-15.4); Immature Granulocytes % 0.4 % (0-4); Lymphocytes # 0.9 K/mcL (0.6-4.6); Lymphocytes % 11.9 %; Mean Corpuscular HGB Conc 32.2 g/dL (31.6-35.5); Mean Corpuscular Hemoglobin 29.4 pg (28.0-33.3); Mean Corpuscular Volume 91.5 fL (83.0-100.0); Mean Platelet Volume 11.6 fL (9.4-12.4); Monocytes # 0.5 K/mcL (0.0-1.3); Monocytes % 6.9 %; Platelet Count 121 K/mcL (140-400); Red Blood Count 4.11 M/mcL (3.82-4.97); Red Cell Distribution Width 15.5 % (11.5-14.5); Segmented Neutrophils % 78.6 %
[2017-08-21] MEDS ORDERED: *HR* LORazepam 2 MG/ML VIAL IVP ONE (19:44)
[2017-08-21 19:45] LABS: Prothrombin Time 10.7 Seconds (9.4-12.1)
[2017-08-21 19:48] LABS: Activated Partial Thrombo Time 26.3 Seconds (26.0-36.0)
[2017-08-21 19:53] LABS: Alanine Aminotransferase 14 Units/L (7-52); Albumin 3.8 g/dL (3.5-5.7); Albumin/Globulin Ratio 1.8 (1.1-2.2); Alkaline Phosphatase 90 Units/L (34-104); Aspartate Amino Transferase 10 Units/L (13-39); BUN/Creatinine Ratio 14 (6-26); Bilirubin,Indirect 0.5 mg/dL (0.0-1.2); Bilirubin,Total 0.5 mg/dL (0.3-1.0); Blood Urea Nitrogen 13 mg/dL (6-20); Calcium 9.4 mg/dL (8.6-10.3); Carbon Dioxide 27 mEq/L (23-29); Chloride 114 mEq/L (98-107); Globulin 2.1 g/dL (2.4-3.5); Glucose 90 mg/dL (70-105); Osmolality,Calculated 296 (280-300); Potassium 3.5 mEq/L (3.5-5.1); Sodium 143 mEq/L (136-145); Total Protein 5.9 g/dL (6.4-8.9); eGFR For African Americans > 60 (> 60); eGFR For Non-African Americans > 60 (> 60)
[2017-08-21 19:57] LABS: Ethanol < 10 mg/dL (0-10)
[2017-08-21 20:03] LABS: Thyroid Stimulating Hormone 8.019 mcIU/mL (0.340-5.600)
[2017-08-21 20:16] LABS: Bilirubin,Urine Small (Negative); Blood,Urine Negative (Negative); Clarity,Urine Cloudy (Clear); Color,Urine Dark Yellow (Yellow); Glucose,Urine (UA) Normal (Normal); Ketones,Urine Negative (Negative); Leukocyte Esterase,Urine Negative (Negative); Nitrite,Urine Negative (Negative); Protein,Urine Trace mg/dL (Neg-Trace); Specific Gravity,Urine 1.027 (1.010-1.025); Urobilinogen,Urine Normal (Normal)
[2017-08-21 20:19] LABS: Bacteria,Urine None Seen per hpf (None-Few); RBC,Urine 0-3 per hpf (0-3); Squamous Epithelial Cell,Urine Many per lpf (None-Few)
[2017-08-21 20:23] LABS: Amphetamine Screen,Urine Negative ng/mL (Cutoff=1000); Barbiturate Screen,Urine Negative ng/mL (Cutoff=200); Benzodiazepines Screen,Urine Negative ng/mL (Cutoff=200); Cannabinoid Screen,Urine Positive ng/mL (Cutoff = 50); Cocaine Screen,Urine Negative ng/mL (Cutoff= 300); Opiate Screen,Urine Negative ng/mL (Cutoff=300); Phencyclidine Screen,Urine Negative ng/mL (Cutoff=25)
[2017-08-21 20:28] LABS: Hyaline Casts,Urine Few per lpf (None-Few)
[2017-08-21] MEDS ORDERED: Ondansetron 4 MG/2 ML VIAL IVP PRN (23:00)
[2017-08-21] MEDS ORDERED: Naloxone 0.4 MG/ML INJ IVP PRN (23:00)
[2017-08-21] MEDS ORDERED: Acetaminophen 325 MG TABLET PO PRN (23:00)
[2017-08-21] MEDS ORDERED: Ipratropium/Albuterol Neb 3 ML IH PRN (23:04)
--- NOTE | 2017-08-21 23:10 | Internal Med History&Physical ---
Date of Encounter: 08/21/17 Time of Encounter: 22:00 Assessment and Plan (1) Acute encephalopathy Current visit: Yes Status: Acute Thought to be related to medication overdose, probably gabapentin. She had similar previous admissions with gabapentin overdose. Unclear if this is accidental or intentional. Urine drug screen positive for marijuana. No source of infection-chest x-ray with clear lung morgan, reviewed independently. Urinalysis not suggestive of UTI. CT head done in the emergency room shows chronic microvascular ischemic changes but no acute infarct. TSH level noted to be 8 and patient is on levothyroxine at home. Continue telemetry monitoring, supportive care, fall precautions. Given her multiple readmissions, she is not safe to stay home without 24-hour supervision. hotel services sales representative consult to aid with this. Physical and occupational therapy evaluation in the past has recommended no therapy needs. Psychiatric evaluation during last admission recommended outpatient follow-up and made medication adjustments, which were followed at the time of discharge. (2) Medication overdose Current visit: Yes Status: Acute Unclear which medication she overdosed on. It has been gabapentin in the past. Urine drug screen positive for marijuana. Continue supportive care and close monitoring. Qualifiers: Encounter type: initial encounter Injury intent: undetermined intent Qualified Code(s): T50.904A - Poisoning by unspecified drugs, medicaments and biological substances, undetermined, initial encounter (3) CHF (congestive heart failure) Current visit: Yes Status: Chronic History of diastolic CHF per previous records. Does not seem to be in acute exacerbation. Continue telemetry monitoring and Lasix. Qualifiers: Congestive heart failure type: diastolic Congestive heart failure chronicity: chronic Qualified Code(s): I50.32 - Chronic diastolic (congestive ) heart failure (4) Bipolar disorder Current visit: Yes Status: Chronic Qualifiers: Active/Remission status: remission status unspecified Qualified Code(s): F31.9 - Bipolar disorder, unspecified (5) Anxiety and depression Current visit: Yes Status: Chronic Hold benzodiazepines for now. Continue Zoloft and Wellbutrin. Has been taken off trazodone during previous admission. (6) Schizophrenia Current visit: Yes Status: Chronic Qualifiers: Schizophrenia type: unspecified Qualified Code(s): F20.9 - Schizophrenia, unspecified (7) Multiple sclerosis Current visit: Yes Status: Chronic Internal Medicine - H&P: HPI Chief complaint: Altered mental status Admitted From: Emergency Dept Plans for Post Hospital Care: Home History of present illness: Ms. Copeland is a 57 year old female with history of schizophrenia, bipolar disorder, anxiety and depression, was brought in by EMS with complaints of altered mental status. Patient is currently awake but unable to provide any history, which is obtained by review of EMS records and previous medical records. Patient has had multiple similar admissions to our hospital in the past. EMS found her confused, her significant other stated this is an acute change in her mental status but unsure of the time of onset. Patient was unable to answer any questions, intermittently yelled "Oh Fuck" as EMS was bringing her to ER. She currently denies pain or any other complaints, responds to her name but otherwise does not remember where she is, cannot tell me the date/year, keeps repeating a few words from my questions, over and over. She also mostly answers "Yes" or "No" which may not be accurate responses. Past Med Surg Social Fam HX - Past Medical History Medical history: cancer, CHF, hyperlipidemia, thyroid disease, other Psychiatric history: anxiety, bipolar, depression, schizophrenia - Past Surgical History Surgical History: other (Cannot be obtained due to patient's mental status), appendectomy - Social History Smoking Status: Current every day smoker Packs per day: 1 Smokeless Tobacco Status: No Alcohol use: none Drug use: marijuana Occupational status: unemployed Current living situation: Home, With Family Activity Level: Independent ambulation Recent Out of Country Travel Within the Last 8 Weeks: No Exposure or Possible Exposure to Illness During Travel: No - Family History Father Living Status: Hx Family Cardiac Disorders: Yes Hx Family Respiratory Disorders: Yes Mother Living Status: Still Living Internal Medicine - H&P: Meds Atorvastatin [Lipitor] 40 mg PO HS 04/10/15 [History] Sertraline [Zoloft] 100 mg PO DAILY 04/10/15 [History] Albuterol Sulfate [Albuterol Inhaler] 2 puff IH Q4H PRN 09/01/16 [History] Levothyroxine [Synthroid] 112 mcg PO QAM 09/01/16 [History] Potassium Chloride [Klor-Con 10] 20 meq PO BID 09/01/16 [History] Baclofen 20 mg PO HS #0 09/04/16 [Rx] Mirabegron [Myrbetriq] 50 mg PO DAILY 06/29/17 [History] ALPRAZolam [Xanax 1 MG Tablet] 1 mg PO BID 07/14/17 [History] Furosemide [Lasix] 40 mg PO DAILY #30 07/17/17 [Rx] Pantoprazole Sodium [Protonix] 40 mg PO BID #60 tablet. 07/17/17 [Rx] BuPROPion SR (12 HR) [Wellbutrin SR] 150 mg PO BID 07/26/17 [History] Ipratropium/Albuterol Neb [Duoneb] 3 ml IH Q6HR PRN 07/26/17 [History] Gabapentin [Neurontin] 300 mg PO TID #45 capsule 07/29/17 [Rx] Nicotine Patch [Nicoderm] 21 mg TD DAILY #30 patch.td24 08/16/17 [Rx] Oxybutynin [Ditropan] 5 mg PO DAILY #30 tablet 08/16/17 [Rx] 3 Allergy/AdvReac Type Severity Reaction Status Date / Time No Known Allergies Allergy Verified 08/21/17 18:39 All Systems PM: A 10-system review of systems was performed and is negative for pertinent findings except as documented above in the HPI. - Constitutional Constitutional: no chills, no fever(s), no night sweats - EENT Eyes: no change in vision, no discharge, no pain, no photophobia Ears: no ear discharge, no ear pain, no tinnitus Nose, mouth and throat: no dysphagia, no nasal discharge, no neck pain, no sore throat - Cardiovascular Cardiovascular ROS IM: no chest pain, no diaphoresis, no dyspnea, no lightheadedness, no palpitations, no syncope - Respiratory Respiratory: cough, no dyspnea, no wheezing, no excessive phlegm production - Gastrointestinal Gastrointestinal: no abdominal pain, no diarrhea, no hematemesis, no hematochezia, no melena, no nausea, no vomiting - Genitourinary Genitourinary: no change in urinary stream, no dysuria, no flank pain, no hematuria - Musculoskeletal Musculoskeletal ROS IM: no numbness, no tingling - Integumentary Integumentary IM: no rash, no unusual bruising - Neurological Neurological ROS: behavioral changes, confusion - Hematologic/Lymphatic Hematologic/Lymphatic: no easy bruising - Constitutional Vitals: Temp Pulse Resp BP Pulse Ox 98.2 F 70 16 111/71 99 08/21/17 18:40 08/21/17 21:34 08/21/17 22:38 08/21/17 22:38 08/21/17 21:34 General appearance: Present: A&O X 1. Absent: answers questions appropriately - Respiratory Respiratory exam: Present: CTAB (B/L coarse breath sounds), rhonchi (scattered rhonchi B/L). Absent: accessory muscle use, rales, wheezes - Cardiovascular Cardiovascular exam: Present: RRR, +S1, +S2. Absent: diastolic murmur, gallop, rubs, systolic murmur - GI/Abdominal GI/Abdominal exam: Present: normal bowel sounds, soft, no peritoneal signs. Absent: distended, tenderness - Extremities Exam Extremities exam: Present: full ROM, pedal edema (1+ pedal edema B/L), warm, radial pulses palpable and symmetrical. Absent: calf tenderness, cyanotic - Neurological Exam Neurological exam: Present: altered (able to answer few questions, repeats certain words from the question over and over), no focal deficits. Absent: pronater drift, facial droop, speech deficit - Skin Skin exam: Present: dry, intact Internal Med - H&P Results - Labs CBC & Chem 7: 08/21/17 19:16 08/21/17 19:16 - EKG Data -: EKG Interpreted by Myself EKG shows normal: sinus rhythm
[2017-08-22 01:23] LABS: Basophils % 0.3 %; Eosinophils # 0.1 K/mcL (0.0-0.6); Hematocrit 34.4 % (35.3-44.9); Hemoglobin 11.2 g/dL (11.5-15.4); Immature Granulocytes % 0.4 % (0-4); Lymphocytes % 14.2 %; Mean Corpuscular HGB Conc 32.6 g/dL (31.6-35.5); Mean Corpuscular Hemoglobin 29.5 pg (28.0-33.3); Mean Corpuscular Volume 90.5 fL (83.0-100.0); Mean Platelet Volume 11.8 fL (9.4-12.4); Monocytes # 0.5 K/mcL (0.0-1.3); Monocytes % 6.9 %; Neutrophils # 5.3 K/mcL (1.6-8.9); Platelet Count 111 K/mcL (140-400); Red Cell Distribution Width 15.6 % (11.5-14.5); Segmented Neutrophils % 76.2 %
[2017-08-22 01:39] LABS: Alanine Aminotransferase 13 Units/L (7-52); Albumin 3.6 g/dL (3.5-5.7); Albumin/Globulin Ratio 1.8 (1.1-2.2); Alkaline Phosphatase 87 Units/L (34-104); Aspartate Amino Transferase 8 Units/L (13-39); BUN/Creatinine Ratio 16 (6-26); Bilirubin,Total 0.5 mg/dL (0.3-1.0); Blood Urea Nitrogen 13 mg/dL (6-20); Calcium 8.9 mg/dL (8.6-10.3); Carbon Dioxide 27 mEq/L (23-29); Chloride 113 mEq/L (98-107); Glucose 88 mg/dL (70-105); Osmolality,Calculated 298 (280-300); Sodium 144 mEq/L (136-145); Total Protein 5.6 g/dL (6.4-8.9); eGFR For African Americans > 60 (> 60); eGFR For Non-African Americans > 60 (> 60)
[2017-08-22] MEDS: *HR* Heparin 5,000 UNIT/ML VIAL SQ SCH ×3 (06:07→22:56)
[2017-08-22] MEDS: Furosemide 40 MG TABLET PO SCH (08:11)
[2017-08-22] MEDS: BuPROPion SR (12 HR) 150 MG TABLET PO SCH ×2 (08:12→20:04)
--- NOTE | 2017-08-22 16:52 | Internal Med Progress Note ---
Date of Encounter: 08/22/17 Time of Encounter: 09:20 - Assessment and plan (1) Acute encephalopathy Current Visit: Yes Status: Acute Assessment and plan: Encephalopathy most likely caused by intentional medication overdose. Patient reports that she was increasing her gabapentin so that she could not sleep. Patient has had several previous admissions due to gabapentin overdose. Her urine drug screen is positive for marijuana. Analysis is negative and chest x-ray is negative. CT head was negative for acute process. TSH is mildly elevated at 8. Patient will need to follow up with primary care in the next 4-6 weeks for evaluation when she is not acutely ill. During assessment this morning, patient was alert, oriented to name and place. Despite being told multiple times what year and month it [place], patient was unable to repeat the information. Friend at bedside this morning states this is not normal for patient. We will continue to monitor patient for safety and for changes, continue to monitor labs. 1 a consult tomorrow if no improvement and no medical cause. (2) Depression Current Visit: Yes Status: Chronic Assessment and plan: Chronic. Continue Wellbutrin and Zoloft. Qualifiers: Depression Type: major depressive disorder Major depression recurrence: recurrent Active/Remission status: in remission of unspecified degree Qualified Code(s): F33.40 - Major depressive disorder, recurrent, in remission, unspecified (3) Multiple sclerosis Current Visit: Yes Status: Chronic Assessment and plan: Per patient history. (4) CHF (congestive heart failure) Current Visit: Yes Status: Chronic Assessment and plan: No acute exacerbation. Continue home dose of Lasix. Continue telemetry. Patient with bilateral lower extremity edema, she states this is normal for her and is not increased. Qualifiers: Congestive heart failure type: diastolic Congestive heart failure chronicity: chronic Qualified Code(s): I50.32 - Chronic diastolic (congestive ) heart failure (5) Bipolar disorder Current Visit: Yes Status: Chronic Assessment and plan: Chronic. Continue home medications. Qualifiers: Active/Remission status: remission status unspecified Qualified Code(s): F31.9 - Bipolar disorder, unspecified (6) Anxiety and depression Current Visit: Yes Status: Chronic (7) Schizophrenia Current Visit: Yes Status: Chronic Assessment and plan: Per patient history. Qualifiers: Schizophrenia type: unspecified Qualified Code(s): F20.9 - Schizophrenia, unspecified (8) DVT prophylaxis Current Visit: No Status: Acute Assessment and plan: Heparin subcutaneous daily. - Time Spent With Patient less than 15 minutes - Subjective Interval history: Patient was seen and assessed at bedside at 920. She had 2 family friend at the bedside. Patient appears to be agitated, her answers are short. She denies any pain other than to her left arm. She is already getting physical therapy at home for the left arm pain. The patient has been increasing over the last 2 weeks since she started therapy and is using muscles with the therabands that she has been using. Left tricep is tender to palpation and worse with movements. Patient appears to be marginally confused at times. She has been rather demanding and short with staff. She carried her bedside commode into the hallway to let us know that she had had a bowel movement. She also got him up and attempted to leave the room with her gown half off, exposing her breasts in the hallway stating that she was going to go smoke. We will continue to monitor overnight, if there is not change in patient's mental status, I will consult psychiatry tomorrow. Patient denies headache, blurred vision, dizziness, chest pain, shortness of breath, abdominal pain, nausea or vomiting. - Constitutional Vitals: Temp Pulse Resp BP Pulse Ox 97.5 F L 88 15 125/84 95 08/22/17 14:34 08/22/17 14:34 08/22/17 14:34 08/22/17 14:34 08/22/17 14:34 General appearance: Present: A&O X 2, no acute distress. Absent: cooperative, pleasant, answers questions appropriately - Head Head exam: Present: atraumatic, normal inspection, normocephalic - Eye Eye exam: Present: normal appearance, conjuntiva pink, sclera anicteric - Neck Neck exam general surgery: Present: supple, trachea midline. Absent: lymphadenopathy, tenderness - Respiratory Respiratory exam: Present: CTAB. Absent: accessory muscle use, decreased breath sounds, rales, respiratory distress, rhonchi, wheezes - Cardiovascular Cardiovascular exam: Present: RRR, +S1, +S2. Absent: diastolic murmur, gallop, rubs, systolic murmur - GI/Abdominal GI/Abdominal exam: Present: normal bowel sounds, soft. Absent: distended, hepatomegaly, tenderness - Extremities Exam Extremities exam: Present: normal capillary refill, normal inspection, pedal edema, warm, radial pulses palpable and symmetrical. Absent: calf tenderness, cyanotic, tenderness - Neurological Exam Neurological exam: Present: alert, altered, oriented X3, no focal deficits. Absent: facial droop, speech deficit - Skin Skin exam: Present: dry, intact, normal color, warm. Absent: rash Internal Medicine: Result - Labs CBC & Chem 7: 08/22/17 00:31 08/22/17 00:31 Labs: Short CBC 08/22/17 Range/Units 00:31 WBC 6.9 (4.3-11.1) K/mcL Hgb 11.2 L (11.5-15.4) g/dL Hct 34.4 L (35.3-44.9) % Plt Count 111 L (140-400) K/mcL Neutrophils # 5.3 (1.6-8.9) K/mcL BMP 08/22/17 00:31 Sodium 144 Potassium 3.0 L Chloride 113 H Carbon Dioxide 27 BUN 13 Creatinine 0.80 Glucose 88 Calcium 8.9 Cardiac Enzymes 08/22/17 08/22/17 08/22/17 Range/Units 00:31 06:11 11:51 Troponin I < 0.03 < 0.03 < 0.03 (< 0.04) ng/mL Liver Function 08/22/17 Range/Units 00:31 Total Bilirubin 0.5 (0.3-1.0) mg/dL AST 8 L (13-39) Units/L ALT 13 (7-52) Units/L Alkaline Phosphatase 87 (34-104) Units/L Albumin 3.6 (3.5-5.7) g/dL - ABG Interpretation ABG results: PT/INR, D-dimer PT 10.7 Seconds (9.4-12.1) 08/21/17 19:16 Consult Discharge Plan - Plan Referrals: Johnie aFrley MD [Primary Care Provider] - 08/25/17 9:45 am
--- NOTE | 2017-08-22 16:55 | Electrocardiograph Report ---
[place] [id number] Test Date: 2017-08-21 Pat Name: Connie Copeland Department: 104 Room: 3B Gender: F Welder Gun: : 1960 Requested By: Donovan Gaspar Order Number: [id number] Reading MD: Nato Basurto Measurements Intervals Molt Rate: 68 P: 46 MI: 183 QRS: -18 QRSD: 102 T: 27 QT: 374 QTc: 392 Interpretive Statements SINUS RHYTHM Electronically Signed On 08-22-2017 16:54:20 EST by Nato Basurto
[2017-08-23 05:52] LABS: Basophils % 0.3 %; Eosinophils # 0.1 K/mcL (0.0-0.6); Eosinophils % 1.9 %; Hematocrit 35.6 % (35.3-44.9); Hemoglobin 11.9 g/dL (11.5-15.4); Immature Granulocytes % 0.5 % (0-4); Lymphocytes # 0.8 K/mcL (0.6-4.6); Lymphocytes % 13.5 %; Mean Corpuscular HGB Conc 33.4 g/dL (31.6-35.5); Mean Corpuscular Hemoglobin 29.5 pg (28.0-33.3); Mean Corpuscular Volume 88.3 fL (83.0-100.0); Mean Platelet Volume 10.7 fL (9.4-12.4); Monocytes # 0.4 K/mcL (0.0-1.3); Monocytes % 6.8 %; Neutrophils # 4.5 K/mcL (1.6-8.9); Platelet Count 119 K/mcL (140-400); Red Blood Count 4.03 M/mcL (3.82-4.97); Red Cell Distribution Width 15.2 % (11.5-14.5)
[2017-08-23 06:09] LABS: BUN/Creatinine Ratio 13 (6-26); Blood Urea Nitrogen 10 mg/dL (6-20); Calcium 8.9 mg/dL (8.6-10.3); Carbon Dioxide 28 mEq/L (23-29); Chloride 109 mEq/L (98-107); Glucose 102 mg/dL (70-105); Osmolality,Calculated 289 (280-300); Potassium 3.2 mEq/L (3.5-5.1); Sodium 140 mEq/L (136-145); eGFR For African Americans > 60 (> 60); eGFR For Non-African Americans > 60 (> 60)
[2017-08-23] MEDS: *HR* Heparin 5,000 UNIT/ML VIAL SQ SCH ×2 (06:41→13:54)
[2017-08-23] MEDS: Furosemide 40 MG TABLET PO SCH (09:05)
[2017-08-23] MEDS: BuPROPion SR (12 HR) 150 MG TABLET PO SCH (09:06)
[2017-08-23 15:54] VITALS: BP 157/94
--- NOTE | 2017-08-23 16:04 | Consult Note ---
Date of Encounter: 08/23/17 Time of Encounter: 15:30 Assessment & Recommendation (1) Medication overdose Status: Acute Qualifiers: Encounter type: initial encounter Injury intent: accidental or unintentional Qualified Code(s): T50.901A - Poisoning by unspecified drugs, medicaments and biological substances, accidental (unintentional), initial encounter History of Present Illness Patient: known to practice within the last 3 years ([facility]) Requesting Physician: Tyesha Stephens MD Reason for consult: Possible overdose on medications History of present illness: Ms. Copeland is a 57 year old female who was admitted to a medical bed after a presumed accidental overdose on her prescription medications. When I introduced myself to her and asked how she was doing she stated "good". I asked her what happened that she was admitted to the hospital, she told me that she had accidentally taken too much medication. When I asked her to explain that, she told me that she taken some of her medications earlier in the evening that she was supposed to take and then her boyfriend gave her medications later that evening. She states that he has been helping out with her medications because there are a lot of them and she has had a problem with compliance and taking them properly before. She accidentally did the same thing approximately 6 weeks earlier. She stated that he ended up giving her the same medications that she had taken previously on her own. He was not aware of the medications she had taken earlier. Patient was seen approximate month ago by Dr. Long and [facility] and her medications were adjusted because of the previous accidental overdose. Patient denies being depressed and intentionally overdosing or trying to end her life. She states that she has a hard time sleeping and feels anxious but that Dr. Long had adjusted her medications trying to simplify the med regimen and targeting her previous depression and anxiety. She states that she has been doing fine. She denies feeling hopeless and helpless. She denies problems with her appetite or not wanting to do things she likes to do. She denies having thoughts of wanting to hurt herself or end her life. She is as active as she can be with having been diagnosed with Multiple Sclerosis and has has felt better in the last several weeks. She states that her medications are numerous and that it is confusing what to take and when. She has her pill bottles in a basket, they are not organized in a daily medications carrier. She is not hearing voices other people do not hear, not seeing things other people do not see. She is not having paranoid delusional thoughts. She denies racing thoughts or impulsive acts. She does have a issue with anxiety for which she has medications prescribed, which is exacerbated by her chronic medical issues. She states her main issue is anxiety and problems sleeping and she is working with Dr. Long to improve upon. She knows the names of her medications. She states that she would never kill her self, but is frustrated with the fact that her medication regimen is so confusing. She states that her boyfriend is trying to help her organizer medications. CC: Tyesha Stephens MD Past Med Surg Social Fam HX - Past Medical History Medical history: cancer, CHF, hyperlipidemia, thyroid disease, other - Past Psychiatric History Psychiatric history: Reports: anxiety, depression Past psychiatric history details: She is seen out patient at [facility] for treatment of Depression and Anxiety. She last seen there 1 month ago. Family psychiatric history: Unknown Family History of Suicide: Unknown - Past Surgical History Surgical History: other (Cannot be obtained due to patient's mental status), appendectomy - Social History Smoking Status: Current every day smoker Smokeless Tobacco Status: No Alcohol use: none Drug use: marijuana Current living situation: Home - Independent Activity Level: Independent ambulation Recent Out of Country Travel Within the Last 8 Weeks: No - Family History Father Living Status: Hx Family Cardiac Disorders: Yes Hx Family Respiratory Disorders: Yes Mother Living Status: Still Living Medications & Allergies Atorvastatin [Lipitor] 40 mg PO HS 04/10/15 [History] Sertraline [Zoloft] 100 mg PO DAILY 04/10/15 [History] Albuterol Sulfate [Albuterol Inhaler] 2 puff IH Q4H PRN 09/01/16 [History] Levothyroxine [Synthroid] 112 mcg PO QAM 09/01/16 [History] Potassium Chloride [Klor-Con 10] 20 meq PO BID 09/01/16 [History] Baclofen 20 mg PO HS #0 09/04/16 [Rx] Mirabegron [Myrbetriq] 50 mg PO DAILY 06/29/17 [History] ALPRAZolam [Xanax 1 MG Tablet] 1 mg PO BID 07/14/17 [History] Furosemide [Lasix] 40 mg PO DAILY #30 07/17/17 [Rx] Pantoprazole Sodium [Protonix] 40 mg PO BID #60 tablet. 07/17/17 [Rx] BuPROPion SR (12 HR) [Wellbutrin SR] 150 mg PO BID 07/26/17 [History] Ipratropium/Albuterol Neb [Duoneb] 3 ml IH Q6HR PRN 07/26/17 [History] Gabapentin [Neurontin] 300 mg PO TID #45 capsule 07/29/17 [Rx] Oxybutynin [Ditropan] 5 mg PO DAILY #30 tablet 08/16/17 [Rx] 3 Allergy/AdvReac Type Severity Reaction Status Date / Time No Known Allergies Allergy Verified 08/22/17 16:11 Review of Systems Psychiatric: Reports: depression, anxiety, abnormal sleep pattern Mental Status Exam Patient orientation: Yes Person, Yes Time, Yes Place, Yes Circumstance Level of alertness: Alert Patient appearance: Appropriate, Well Groomed Behavior: calm Psychomotor activity: Normal Eye contact: Maintains Eye Contact Mood description: Anxious (Mildly) Affect description: congruent with mood Speech pattern: Normal rate, Normal rhythm, Normal tone, Appropriate Speech volume: Normal Thought process: Intact, Logical, Linear, Goal Oriented Thought content: Yes Intact Attention span: Capable of Focused Attention, Capable of Sustained Attention Memory description: Grossly Intact Patient reliability: Reliable Historian Intelligence estimate: Average Judgment: Fair Insight: Full Results - Vital Signs Vital signs: Temp Pulse Resp BP Pulse Ox 97.6 F 77 17 157/94 98 08/23/17 15:53 08/23/17 15:53 08/23/17 15:53 08/23/17 15:53 08/23/17 15:53 - Labs Labs: Laboratory Last Values WBC 5.9 K/mcL (4.3-11.1) 08/23/17 05:39 RBC 4.03 M/mcL (3.82-4.97) 08/23/17 05:39 Hgb 11.9 g/dL (11.5-15.4) 08/23/17 05:39 Hct 35.6 % (35.3-44.9) 08/23/17 05:39 MCV 88.3 fL (83.0-100.0) 08/23/17 05:39 MCH 29.5 pg (28.0-33.3) 08/23/17 05:39 MCHC 33.4 g/dL (31.6-35.5) 08/23/17 05:39 RDW 15.2 % (11.5-14.5) H 08/23/17 05:39 Plt Count 119 K/mcL (140-400) L 08/23/17 05:39 MPV 10.7 fL (9.4-12.4) 08/23/17 05:39 Immature Gran % 0.5 % (0-4) 08/23/17 05:39 Seg Neutrophils % 77.0 % 08/23/17 05:39 Lymphocytes % 13.5 % 08/23/17 05:39 Monocytes % 6.8 % 08/23/17 05:39 Eosinophils % 1.9 % 08/23/17 05:39 Basophils % 0.3 % 08/23/17 05:39 Neutrophils # 4.5 K/mcL (1.6-8.9) 08/23/17 05:39 Lymphocytes # 0.8 K/mcL (0.6-4.6) 08/23/17 05:39 Monocytes # 0.4 K/mcL (0.0-1.3) 08/23/17 05:39 Eosinophils # 0.1 K/mcL (0.0-0.6) 08/23/17 05:39 Basophils # 0.0 K/mcL (0.0-0.2) 08/23/17 05:39 PT 10.7 Seconds (9.4-12.1) 08/21/17 19:16 INR 1.0 08/21/17 19:16 APTT 26.3 Seconds (26.0-36.0) 08/21/17 19:16 Sodium 140 mEq/L (136-145) 08/23/17 05:39 Potassium 3.2 mEq/L (3.5-5.1) L 08/23/17 05:39 Chloride 109 mEq/L (98-107) H 08/23/17 05:39 Carbon Dioxide 28 mEq/L (23-29) 08/23/17 05:39 BUN 10 mg/dL (6-20) 08/23/17 05:39 Creatinine 0.77 mg/dL (0.60-1.20) 08/23/17 05:39 Est GFR ( Amer) > 60 (> 60) 08/23/17 05:39 Est GFR (Non-Af Amer) > 60 (> 60) 08/23/17 05:39 BUN/Creatinine Ratio 13 (6-26) 08/23/17 05:39 Glucose 102 mg/dL (70-105) 08/23/17 05:39 POC Glucose 90 (58-89) H 08/21/17 18:44 Calculated Osmolality 289 (280-300) 08/23/17 05:39 Calcium 8.9 mg/dL (8.6-10.3) 08/23/17 05:39 Total Bilirubin 0.5 mg/dL (0.3-1.0) 08/22/17 00:31 Direct Bilirubin 0.0 mg/dL (0.0-0.2) 08/21/17 19:16 Indirect Bilirubin 0.5 mg/dL (0.0-1.2) 08/21/17 19:16 AST 8 Units/L (13-39) L 08/22/17 00:31 ALT 13 Units/L (7-52) 08/22/17 00:31 Alkaline Phosphatase 87 Units/L (34-104) 08/22/17 00:31 Ammonia 24 mcmol/L (16-53) 08/21/17 19:16 Troponin I < 0.03 ng/mL (< 0.04) 08/22/17 11:51 Serum Total Protein 5.6 g/dL (6.4-8.9) L 08/22/17 00:31 Albumin 3.6 g/dL (3.5-5.7) 08/22/17 00:31 Globulin 2.0 g/dL (2.4-3.5) L 08/22/17 00:31 Albumin/Globulin Ratio 1.8 (1.1-2.2) 08/22/17 00:31 TSH 8.019 mcIU/mL (0.340-5.600) H 08/21/17 19:16 Urine Color Dark Yellow (Yellow) 08/21/17 20:09 Urine Clarity Cloudy (Clear) A 08/21/17 20:09 Urine pH 6.0 pH Units (5.0-8.0) 08/21/17 20:09 Ur Specific Silt 1.027 (1.010-1.025) H 08/21/17 20:09 Urine Protein Trace mg/dL (Neg-Trace) 08/21/17 20:09 Urine Glucose (UA) Normal mg/dL (Normal) 08/21/17 20:09 Urine Ketones Negative mg/dL (Negative) 08/21/17 20:09 Urine Blood Negative (Negative) 08/21/17 20: Urine Nitrite Negative (Negative) 08/21/17 20: Urine Bilirubin Small (Negative) H 08/21/17 20:09 Urine Urobilinogen Normal mg/dL (Normal) 08/21/17 20:09 Ur Leukocyte Esterase Negative (Negative) 08/21/17 20:09 Urine Microscopic RBC 0-3 per hpf (0-3) 08/21/17 20:09 Urine Microscopic WBC 5-15 per hpf (0-3) H 08/21/17 20:09 Ur Squamous Epith Cells Many per lpf (None-Few) H 08/21/17 20:09 Urine Bacteria None Seen per hpf (None-Few) 08/21/17 20:09 Hyaline Casts Few per lpf (None-Few) 08/21/17 20:09 Ur Culture Indicated? NO (NO) 08/21/17 20:09 Urine Opiates Screen Negative ng/mL (Ohoiis=395) 08/21/17 20:09 Ur Barbiturates Screen Negative ng/mL (Qdjhfk=138) 08/21/17 20:09 Ur Phencyclidine Scrn Negative ng/mL (Cutoff=25) 08/21/17 20:09 Ur Amphetamines Screen Negative ng/mL (Sgatvn=2954) 08/21/17 20:09 U Benzodiazepines Scrn Negative ng/mL (Cmewzd=295) 08/21/17 20:09 Urine Cocaine Screen Negative ng/mL (Cutoff= 300) 08/21/17 20:09 U Marijuana (THC) Screen Positive ng/mL (Cutoff = 50) H 08/21/17 20:09 Ethyl Alcohol < 10 mg/dL (0-10) 08/21/17 19:16 - Impressions Impressions Humerus X-Ray 08/23/17 09:00 IMPRESSION: 1. No evidence of acute osseous abnormality involving the left humerus. 2. Mild prominence of anterior fat pad along the distal humerus. Finding may merely be projectional. If there is clinical symptomatology referable to the elbow, formal elbow examination may be helpful for more complete evaluation. D/ / 08/23/2017 11:13:42 Devendra Porter MD / [email or web address] Interpreting Provider: Devendra Porter MD Shoulder X-Ray 08/23/17 09:00 IMPRESSION: No acute fracture, or dislocation of the left shoulder. Mild degenerative changes at the left AC joint. D/ / David Dumont MD / David Dumont MD Interpreting Provider: David Dumont MD Consult Discharge Plan - Plan Instructions: Heart Failure (DC), Depression (DC), Hypothyroidism (DC), Altered Mental Status (GEN) Additional Instructions: Please follow up with [facility] on October 09 at 9:40 AM. Please follow up with Dr. Farley in the next week to 10 days for a follow-up visit. Continue your normal home medications. As our clinical social work therapist discussed with her boyfriend, please take medications to [facility] or [facility] to be placed in blister packs for daily use. This was highly stressed to her to help her keep her medication organized, where times and dates could be written on them so there would be no confusion between her and her boyfriend. Also, it would be documented and there would be a decreased risk of over medicating/ overdosing on medications. Please do not take extra doses of your home medications. Resume normal activities and diet as tolerated. Return to the emergency department as needed for any other problems or concerns , or if her symptoms return or worsen. Referrals: Johnie Farley MD [Primary Care Provider] - 08/25/17 9:45 am
--- NOTE | 2017-08-23 17:15 | Discharge Summary ---
Date of Encounter: 08/23/17 Time of Encounter: 09:30 - Discharge Diagnosis (1) Acute encephalopathy Priority: Primary Status: Resolved Comments: Patient has returned to baseline. Patient reports that she was increasing her gabapentin so that she could sleep. This is patient's third admission for intentional overdose. Patient with acute encephalopathy on arrival, has resolved today. Patient's urine drug screen is positive for marijuana, she states that she smokes marijuana daily. Urinalysis is negative, chest x-ray is negative. CT head negative for acute process. TSH is mildly elevated at 8. Patient will need to follow up with primary care for reevaluation of left ear when she is not acutely ill. She has returned to her baseline mentation, she is pleasant, able to answer questions appropriately. In response to patient's multiple intentional drug overdoses, it was recommended by [facility] the patient take her medications to [facility] to have the medications put into medication packs for daily use. barrow worker spoke with patient's boyfriend who states he will take the medications himself to make sure that gets done. The patient was evaluated by psychiatry. I appreciate his consultation and recommendations. Patient has a follow-up appointment on October 09 at 9:30 AM at the [facility]. (2) Depression Priority: Secondary Status: Chronic Comments: Chronic. Continue Wellbutrin and Zoloft. Qualifiers: Depression Type: major depressive disorder Major depression recurrence: recurrent Active/Remission status: in remission of unspecified degree Qualified Code(s): F33.40 - Major depressive disorder, recurrent, in remission, unspecified (3) Multiple sclerosis Priority: Secondary Status: Chronic Comments: Patient history. The patient is not currently taking any maintenance medication. (4) CHF (congestive heart failure) Priority: Secondary Status: Chronic Comments: No acute exacerbation. Patient is euvolemic, lungs are clear. Continue normal home dose of Lasix. Patient has normal amount of bilateral lower extremity edema, it is unchanged. Qualifiers: Congestive heart failure type: diastolic Congestive heart failure chronicity: chronic Qualified Code(s): I50.32 - Chronic diastolic (congestive ) heart failure (5) Bipolar disorder Priority: Secondary Status: Chronic Comments: Chronic. Continue home medications. Qualifiers: Active/Remission status: remission status unspecified Qualified Code(s): F31.9 - Bipolar disorder, unspecified (6) Anxiety and depression Priority: Secondary Status: Chronic Comments: Plan as above. Chronic. (7) Schizophrenia Priority: Secondary Status: Chronic Comments: Per patient history. Chronic. Continue home medications. Follow up with [facility] as scheduled. Qualifiers: Schizophrenia type: unspecified Qualified Code(s): F20.9 - Schizophrenia, unspecified (8) DVT prophylaxis Priority: Secondary Status: Acute - Discharge Medications Home Medications: Atorvastatin [Lipitor] 40 mg PO HS 04/10/15 [History] Sertraline [Zoloft] 100 mg PO DAILY 04/10/15 [History] Albuterol Sulfate [Albuterol Inhaler] 2 puff IH Q4H PRN 09/01/16 [History] Levothyroxine [Synthroid] 112 mcg PO QAM 09/01/16 [History] Potassium Chloride [Klor-Con 10] 20 meq PO BID 09/01/16 [History] Baclofen 20 mg PO HS #0 09/04/16 [Rx] Mirabegron [Myrbetriq] 50 mg PO DAILY 06/29/17 [History] ALPRAZolam [Xanax 1 MG Tablet] 1 mg PO BID 07/14/17 [History] Furosemide [Lasix] 40 mg PO DAILY #30 07/17/17 [Rx] Pantoprazole Sodium [Protonix] 40 mg PO BID #60 tablet. 07/17/17 [Rx] BuPROPion SR (12 HR) [Wellbutrin SR] 150 mg PO BID 07/26/17 [History] Ipratropium/Albuterol Neb [Duoneb] 3 ml IH Q6HR PRN 07/26/17 [History] Gabapentin [Neurontin] 300 mg PO TID #45 capsule 07/29/17 [Rx] Oxybutynin [Ditropan] 5 mg PO DAILY #30 tablet 08/16/17 [Rx] Allergies/Adverse Reactions: 3 Allergy/AdvReac Type Severity Reaction Status Date / Time No Known Allergies Allergy Verified 08/22/17 16:11 Date of admission: 08/21/17 21:34 Primary care physician: Johnie Farley MD Consults: 08/21/17 23:02 Consult to Spanish Instructor [CONS] Routine Reason for SW Consult: Unsafe to be discharged home; multiple readmissions 08/23/17 07:36 Consult to Psychiatry [CONS] Routine Consulting Provider: Renate Oreilly Reason for Consult: Pt with multiple medication overdoses with multiple admissions. She is a pt at [facility]. Pt agitated and confused, medically stable. She has several underlying mental health issues that could need to be addressed/ evaluated by psychiatry. Call Completed: No Discharging clinician: 0930 Anticipated date of discharge: 08/23/17 - Patient Status Disposition: Home, Self-Care Condition: Good Functional capacity at discharge: independent ambulation Overall status at discharge: patient is back to baseline - Discharge Instructions Follow Up With: Johnie Farley MD [Primary Care Provider] - 08/25/17 9:45 am Additional Instructions: Please follow up with [facility] on October 09 at 9:40 AM. Please follow up with Dr. Farley in the next week to 10 days for a follow-up visit. Continue your normal home medications. As our social services coordinator discussed with your boyfriend, please take medications to [facility] or [facility] to be placed in blister packs for daily use. Please do not take extra doses of your home medications. Resume normal activities and diet as tolerated. Return to the emergency department as needed for any other problems or concerns , or if her symptoms return or worsen. - Diet and Activity Activity: increase activity as tolerated Diet: advance to your usual diet Hospital course: Ms. Copeland is a 57 year old female with past medical history of schizophrenia , bipolar disorder, CHF, MS on anxiety and depression who presented to the emergency department with acute encephalopathy and what appears to be an intentional medication overdose at home. Patient again took too many gabapentin. She states to me that she was unable to sleep despite the gabapentin would help her. She has had 3 prior admissions recently for same diagnosis. Patient returned to her baseline mentation and was evaluated by psychiatry. She has a follow-up appointment as stated above on October 09 at 9:40 AM. It was recommended that patient take her medications to [facility] to have the medications packed daily packs in an attempt to avoid further confusion or medication overdoses. barrow worker spoke with boyfriend who is agreeable to this and will follow through with the completion. Patient had mild hypokalemia, it is slowly correcting with by mouth supplementation. Other labs are stable, vital signs are stable. Patient is stable and appropriate for discharge. - Time Spent with Patient Total time spent providing and/or coordinating discharge services: Less than 30 minutes - Constitutional Vitals: Temp Pulse Resp BP Pulse Ox 97.6 F 77 17 157/94 98 08/23/17 15:53 08/23/17 15:53 08/23/17 15:53 08/23/17 15:53 08/23/17 15:53 General appearance: Present: cooperative, A&O X 3, pleasant, no acute distress, answers questions appropriately. Absent: mild distress - Head Head exam: Present: atraumatic, normal inspection, normocephalic - Eye Eye exam: Present: conjuntiva pink, sclera anicteric - Neck Neck exam general surgery: Present: supple, trachea midline. Absent: lymphadenopathy, tenderness - Respiratory Respiratory exam: Present: CTAB. Absent: accessory muscle use, chest wall tenderness, decreased breath sounds, rales, rhonchi, wheezes - Cardiovascular Cardiovascular exam: Present: RRR, +S1, +S2. Absent: diastolic murmur, gallop, rubs, systolic murmur - GI/Abdominal GI/Abdominal exam: Present: normal bowel sounds, soft, no peritoneal signs. Absent: distended, hepatomegaly, tenderness - Extremities Exam Extremities exam: Present: normal capillary refill, normal inspection, warm, radial pulses palpable and symmetrical. Absent: calf tenderness, cyanotic, pedal edema, tenderness - Neurological Exam Neurological exam: Present: alert, oriented X3, no focal deficits. Absent: facial droop, speech deficit - Skin Skin exam: Present: dry, intact, normal color, warm. Absent: rash
== END 2017-08-23 18:44 | disposition home or self-care (01) ==
LOC: EMEROO 18:38 → 3ANU 18:38 → 3BNU 22:30
PROVIDERS: ADMIT Internal Medicine; ATTEND Student in an Organized Health Care Education/Training Program

== ENCOUNTER 2017-09-18 08:08 | Observation (INO) ==
[2017-09-18] MEDS ORDERED: 0.9 % Sodium Chloride 1,000 ML IVC ONE (08:20)
[2017-09-18] MEDS ORDERED: Ketorolac 15 MG/ML VIAL IVP ONE (08:20)
[2017-09-18] MEDS ORDERED: *HR* FentaNYL (PF) 100 MCG/2 ML VIAL IVP ONE ×2 (08:54→09:07)
[2017-09-18] MEDS ORDERED: *HR* FentaNYL (PF) 100 MCG/2 ML VIAL ONE ×2 (08:55→19:18)
[2017-09-18] MEDS ORDERED: *HR* Etomidate 20 MG/10 ML AMPUL IVP ONE (09:07)
[2017-09-18] MEDS ORDERED: Ondansetron 4 MG/2 ML VIAL IVP ONE (09:10)
--- NOTE | 2017-09-18 09:44 | Emergency Department Note ---
Disposition Clinical Impression: Right knee dislocation Qualifiers: Encounter type: initial encounter Qualified Code(s): S83.104A - Unspecified dislocation of right knee, initial encounter Disposition: Home, Self-Care Condition: Fair Referrals: Johnie Farley MD [Primary Care Provider] - Forms: ED Satisfaction Letter Time of Disposition: 17:33 Extremity Problem HPI - General Chief complaint: ED Extremity Problem,Nontraumatic Stated complaint: R knee dislocated Time Seen by Provider: 09/18/17 08:13 Source: patient Mode of arrival: wheelchair Limitations: no limitations Nursing Notes Reviewed: Yes Vital Signs Reviewed: Yes - History of Present Illness HPI Narrative: 57-year-old female presents to the emergency department from Dr. Sanchez office for possible dislocated right knee. Patient states she has felt like her knee is dislocated for approximately 3-4 days she has continue to try to walk on it but says it is painful to walk. Patient has not had any knee surgeries. Patient says that she is also complaining of left hip and left shoulder pain. With a central were they are also worried about vascular issues related to contact Dr. Marie the vascular surgeon to see what imaging he would want. He called us and mentioned that he wanted a CT angio of the right lower extremity. Patient otherwise says that she is doing well and not complaining of any nausea vomiting, headache, blurry vision, fevers, chills, chest pain, shortness of breath, back pain, abdominal pain, pain or tingling in any arms or legs or any generalized weakness or change in bowel movements or pain with urination. Pain Scale: 10 - Related Data Home Medications Medication Instructions Recorded Confirmed Atorvastatin [Lipitor] 40 mg PO HS 04/10/15 08/22/17 Sertraline [Zoloft] 100 mg PO DAILY 04/10/15 08/22/17 Albuterol Sulfate [Albuterol 2 puff IH Q4H PRN 09/01/16 08/22/17 Inhaler] Levothyroxine [Synthroid] 112 mcg PO QAM 09/01/16 08/22/17 Potassium Chloride [Klor-Con 10] 20 meq PO BID 09/01/16 08/22/17 Mirabegron [Myrbetriq] 50 mg PO DAILY 06/29/17 08/22/17 ALPRAZolam [Xanax 1 MG Tablet] 1 mg PO BID 07/14/17 08/22/17 BuPROPion SR (12 HR) [Wellbutrin 150 mg PO BID 07/26/17 08/22/17 SR] Ipratropium/Albuterol Neb [Duoneb] 3 ml IH Q6HR PRN 07/26/17 08/22/17 Previous Rx's Medication Instructions Recorded Baclofen 20 mg PO HS #0 09/04/16 Furosemide [Lasix] 40 mg PO DAILY #30 07/17/17 Pantoprazole Sodium [Protonix] 40 mg PO BID #60 tablet. 07/17/17 Gabapentin [Neurontin] 300 mg PO TID #45 capsule 07/29/17 Oxybutynin [Ditropan] 5 mg PO DAILY #30 tablet 08/16/17 Diphenoxylate/Atropine [Lomotil 1 each PO QID PRN #60 tablet 09/01/17 2.5 mg/0.025 mg] Allergies Allergy/AdvReac Type Severity Reaction Status Date / Time No Known Allergies Allergy Verified 08/22/17 16:11 Review of Systems: 10 point review of systems done and negative unless otherwise stated in history of present illness. All systems ED: reviewed and negative except as stated. Review of Systems: As Per HPI Past Medical History - Past Medical History Attestation: Yes The following information was validated with the patient. 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 - Social History Smoking Status: Current every day smoker Smokeless Tobacco Status: No Alcohol use: Reports: none Drug use: Reports: none Physical Exam - General Limitations: no limitations General appearance: alert - Head Head exam: atraumatic, normocephalic, normal inspection - Eye Eye exam: Present: normal appearance, PERRL, EOMI - ENT ENT exam: normal exam, normal oropharynx, mucous membranes moist - Neck Neck exam: Present: normal inspection, full ROM, trachea midline - Chest Chest inspection: Present: normal inspection, symmetric chest wall rise - Respiratory Respiratory exam: Present: normal lung sounds bilaterally - Cardiovascular Cardiovascular exam: Present: regular rate, normal rhythm, normal heart sounds - Abdominal Exam Abdominal exam: Present: soft, Non-Tender. Absent: tenderness, distention, guarding, rebound, rigidity - Extremities Exam Extremities exam: Present: normal inspection, full ROM. Absent: tenderness, pedal edema - Expanded Lower Extremity Exam Hip/Pelvis exam: Present: normal inspection, full ROM, tenderness (Mild tenderness well palpating the left hip.). Absent: deformity, dislocation Upper leg exam: Present: normal inspection, full ROM Knee exam: Present: normal inspection, tenderness (Mild tenderness while palpating the knee.). Absent: full ROM (Limited range of motion and is painful on motion.), swelling, ecchymosis, deformity (There was no noticeable deformity on exam.) Lower leg exam: Present: normal inspection, full ROM Foot/toe exam: Present: normal inspection, full ROM Neurovascular/Tendon exam: Present: normal capillary refill. Absent: pulse deficit, motor deficit, sensory deficit, tendon deficit - Back Exam Back exam: Present: normal inspection, full ROM. Absent: tenderness, CVA tenderness (R), CVA tenderness (L) - Neurological Exam Neurological exam: Present: alert, oriented X3 - Skin Skin exam: Present: warm, dry, intact, normal color Course Course Narrative: 57-year-old female presented to the emergency department with possible dislocation the right knee will get x-rays give pain medications. Dr. Ley did call and we will get CT angiogram of the right knee after we reduce if it is out. - Reevaluation(s) Reevaluation #1: X-ray did show that it was else we will do reduction under procedural sedation using etomidate. The sedation and reduction was partially successful as is about 50% reduced we did get postreduction films. We did now sent patient over for CT angiogram as to pending. We spoke with Dr. Luong and he will review the x-rays and call us back with what he wants to be done. We did give patient a 50mcg of fentanyl prior to this procedure as well as 8 mg Zofran. Before and after the procedure patient did have bilateral pedal pulses. Procedure pedal pulses were checked and she was placed in a knee immobilizer. Pedal pulses were they are on the right side. Time: 09:57 Vital Signs Temperature 97.3 F L 09/18/17 08:10 Pulse Rate 83 09/18/17 08:10 Respiratory Rate 18 09/18/17 08:10 Blood Pressure 144/99 09/18/17 08:10 O2 Sat by Pulse Oximetry 99 09/18/17 08:10 Temperature 97.3 F L 09/18/17 08:10 Pulse Rate 83 09/18/17 15:00 Respiratory Rate 16 09/18/17 15:00 Blood Pressure 110/69 09/18/17 15:00 O2 Sat by Pulse Oximetry 94 09/18/17 15:00 Oxygen Delivery Oxygen Delivery [] Room Air Oxygen Delivery [] Nasal Cannula Oxygen Delivery [] Nasal Cannula Oxygen Delivery [] Nasal Cannula Oxygen Delivery [] Nasal Cannula Oxygen Delivery [] Nasal Cannula Oxygen Delivery [] Nasal Cannula Oxygen Delivery Room Air Procedures - Orthopedic Joint Reduction Joint #1 Consent Obtained: written consent Time Out Performed: Yes Side: right Joint Reduction Location: knee/patella ASA Classification: CLASS II-Mild systemic disease Analgesia: procedural sedation Amount of anesthesic used (mL): 10 (Milligrams of etomidate) Technique used: traction/counter-traction Post-reduction neuro exam: intact Post-reduction vascular: intact Post Reduction X-Ray Obtained: Yes Post Reduction X-Ray Results: not reduced (50% reduced Ortho-Est been contacted) Splint Applied: Yes (Knee mobilizer) Patient Tolerated Procedure: well, no complications - Procedural Sedation Procedure: Right knee reduction Indication: fracture/dislocation reduction Dietary Status: No solid food in preceding 4 hrs and no liquid in preceding 2 hrs H&P (including ROS) documented in medical record: Yes Most Recent Vitals: Within normal limits. Previous reaction to sedatives/anesthetics: No Dentition: No loose teeth or bridges Airway Assessment: Patient can open mouth completely, TMJ function normal, Micrognathia (under-bite, receding chin) absent, Neck with adequate range of motion Possible difficult airway: No Difficult Airway; If yes,: History of difficult intubation ASA Classification: CLASS II-Mild systemic disease Plan of Care: Pt appropriate candidate for procedure/moderate/conscious sedation , Risks/benefits of procedure/sedation discussed w/ patient/family Preparation: conveyor monitor applied, pulse oximeter, capnometry used, supplemental O2 applied, suction/airway equipment at bedside, IV secured IV Etomidate Dose (mgs): 10 Patient Tolerated Procedure: well, no complications Complications: none Extremity Problem, Nontraumati - MDM Narrative Medical decision making narrative: 57-year-old female presented to the emergency department with a right dislocated knee he was sent from Dr. Luong's office. We did do x-ray was did show a right anterior dislocation. Patient says associated walking on this for a few days. At this time we did sedate the patient with etomidate and gave her fentanyl prior to this for pain control. This was done by myself and the reduction was also done with Dr. Can it was successfully reduced approximately 50% repeat x-rays were done. This time we contacted orthopedics where they said to order a CT angiogram of the right leg. This was done and read and showed no vascular insufficiencies. At this time we contacted Ortho again which stated that the patient would undergo surgery today where they would try to reduce it and then splinted while in the OR under sedation. The patient was okay with this plan. She is currently an ED hold that is being sent to the OR once being discharged from here. Hip X-Ray 09/18/17 08:17 IMPRESSION: No acute osseous abnormality. Given the degree of osteopenia, nondisplaced fractures may be radiographically occult. If pain or concern for fracture persists, consider MR imaging. D/ / 09/18/2017 09:17:19 Estela Jarquin MD / [facility] Interpreting Provider: Estela Jarquin MD Shoulder X-Ray 09/18/17 08:17 IMPRESSION: 1. No acute abnormality identified of the left shoulder. 2. Mild degenerative change. D/ / Cesar Tovar MD / Cesar Tovar MD Interpreting Provider: Cesar Tovar MD Lower Extremity CTA 09/18/17 08:50 IMPRESSION: No acute vascular injury is identified within the right lower extremity. No dissection, aneurysm, or other acute abnormality. No evidence of significant atherosclerotic disease or stenosis within the right lower extremity. 3 vessel runoff. Posterior dislocation at the knee joint of the femur with respect to the tibia. There is a large complex appearing joint effusion. Tricompartmental osteoarthritic changes are also identified. No definite fracture is seen. D/ / Ivan Saez MD / Ivan Saez MD Interpreting Provider: Ivan Saez MD Knee X-Ray 09/18/17 09:25 IMPRESSION: 1. Although alignment has improved, the tibia is still dislocated anteriorly with respect to the femur. 2. Large knee joint effusion. D/ / Guillermo Lovell MD / Guillermo Lovell MD Interpreting Provider: Guillermo Lovell MD - Lab Data Result diagrams: 09/18/17 09:57 09/18/17 09:57 Lab Results 09/18/17 09/18/17 Range/Units 09:57 09:57 WBC 6.6 (4.3-11.1) K/mcL RBC 3.74 L (3.82-4.97) M/mcL Hgb 11.2 L (11.5-15.4) g/dL Hct 33.2 L (35.3-44.9) % MCV 88.8 (83.0-100.0) fL MCH 29.9 (28.0-33.3) pg MCHC 33.7 (31.6-35.5) g/dL RDW 14.7 H (11.5-14.5) % Plt Count 122 L (140-400) K/mcL MPV 11.9 (9.4-12.4) fL Immature Gran % 0.8 (0-4) % Seg Neutrophils % 77.5 % Lymphocytes % 11.7 % Monocytes % 7.1 % Eosinophils % 2.6 % Basophils % 0.3 % Neutrophils # 5.1 (1.6-8.9) K/mcL Lymphocytes # 0.8 (0.6-4.6) K/mcL Monocytes # 0.5 (0.0-1.3) K/mcL Eosinophils # 0.2 (0.0-0.6) K/mcL Basophils # 0.0 (0.0-0.2) K/mcL Sodium 131 L (136-145) mEq/L Potassium 2.6 L (3.5-5.1) mEq/L Chloride 96 L (98-107) mEq/L Carbon Dioxide 29 (23-29) mEq/L BUN 11 (6-20) mg/dL Creatinine 0.90 (0.60-1.20) mg/dL Est GFR ( Amer) > 60 (> 60) Est GFR (Non-Af Amer) > 60 (> 60) BUN/Creatinine Ratio 12 (6-26) Glucose 103 (70-105) mg/dL Calculated Osmolality 272 L (280-300) Calcium 8.7 (8.6-10.3) mg/dL Attestation Statement - Attestation Attestation: I, Jack Can DO, examined this patient [id number] and my medical decision-making was reviewed with Dr. Josr Fields, Resident Physician. I agree with the documented findings, disposition and treatment plan as described except to the extent set forth below. Please see my progress notes for details. 57-year-old female presents to the orthopedic physicians clinic for evaluation of right knee pain. Patient has been ambulating on it for several days. Patient denies any specific trauma. She does not have a history of joint subluxation. Patient was concerned and decided to be seen at the orthopedic physician's office today. They are concerned about joint dislocation recommended she come to emergency room. Patient subjectively has had her knee dislocated approximately 3-4 days. X-ray confirms an anterior dislocation. Pulses are not tacked the distal extremity including the PT and DP distributions. Pulses are symmetric bilaterally. Patient does have pitting edema. Patient on physical exam otherwise is clear lungs heart the training abdomen is soft. Patient does not have any acute signs of vascular insufficiency to the affected leg. Consent was obtained for procedural sedation and reduction of the knee. Procedure sedation completed by the resident physician Dr. Fields. I completed the reduction without any complication. Patient's knee reduced without any issue but subluxed back to about 50% dislocation after the straight leg knee immobilizer was applied. There is overriding strain from the extensor muscles of the right thigh that are pulling the knee anteriorly secondary to the prolonged dislocation. Vascular study ordered at the recommendations of the orthopedic physician Dr. Luong. Orthopedic physician's assistant signal maintainer has evaluated the patient at the bedside. Disposition undetermined once imaging modalities are resulted. Postreduction films do confirm about 50% reduction. Patient does continue to side posteriorly without any complication or pain but she immediately subluxes anteriorly again. Patient otherwise has no other acute pathology issue. Postreduction pulses are intact. Disposition pending the angiography with lower extremity in consultation. See detailed documentation of the physical exam, medical intervention, medical decision-making and disposition in the resident physician's note 1200 Patient seen by orthopedics or go to the operating room to do a closed reduction and stabilization was casting. Patient held in the emergency room and the patient is available for the operative suite. No other concerns or issues noted postreduction shows 2% reduction without complication
[2017-09-18 10:13] LABS: Basophils % 0.3 %; Eosinophils # 0.2 K/mcL (0.0-0.6); Eosinophils % 2.6 %; Hematocrit 33.2 % (35.3-44.9); Hemoglobin 11.2 g/dL (11.5-15.4); Immature Granulocytes % 0.8 % (0-4); Lymphocytes # 0.8 K/mcL (0.6-4.6); Lymphocytes % 11.7 %; Mean Corpuscular HGB Conc 33.7 g/dL (31.6-35.5); Mean Corpuscular Hemoglobin 29.9 pg (28.0-33.3); Mean Corpuscular Volume 88.8 fL (83.0-100.0); Mean Platelet Volume 11.9 fL (9.4-12.4); Monocytes # 0.5 K/mcL (0.0-1.3); Monocytes % 7.1 %; Neutrophils # 5.1 K/mcL (1.6-8.9); Platelet Count 122 K/mcL (140-400); Red Blood Count 3.74 M/mcL (3.82-4.97); Red Cell Distribution Width 14.7 % (11.5-14.5); Segmented Neutrophils % 77.5 %
[2017-09-18 10:17] LABS: Calcium 8.7 mg/dL (8.6-10.3); Carbon Dioxide 29 mEq/L (23-29); Chloride 96 mEq/L (98-107); Potassium 2.6 mEq/L (3.5-5.1); Sodium 131 mEq/L (136-145)
[2017-09-18 10:23] LABS: BUN/Creatinine Ratio 12 (6-26); Blood Urea Nitrogen 11 mg/dL (6-20); Glucose 103 mg/dL (70-105); Osmolality,Calculated 272 (280-300); eGFR For African Americans > 60 (> 60); eGFR For Non-African Americans > 60 (> 60)
--- NOTE | 2017-09-18 11:06 | Orthopedic Consult Note ---
Date of Encounter: 09/18/17 Time of Encounter: 10:45 Assessment and Plan (1) Dislocation of right knee Current Visit: Yes Status: Chronic CTA of right lower extremity being performed to rule out possible vascular compromise given chronic dislocation. Discussed with patient and ED team that plan as discussed with Dr. Luong, pending results of CTA, are to closed reduce the knee and cast in place to allow for soft tissue healing with close follow up to monitor for stiffness in the knee. Did discuss that depending on CTA results, patient may require total knee replacement. Will plan for patient to have close outpatient follow up after treatment as well. Qualifiers: Encounter type: initial encounter Qualified Code(s): S83.104A - Unspecified dislocation of right knee, initial encounter History of Present Illness Chief complaint: right knee pain HPI: Ms. Copeland is a 57 year old female presenting to [facility] from [facility] office in [place] after seeing Dr. Sanchez and noted to have dislocated right knee. Patient relates that at some point approximately 3-4 weeks ago she started to experience difficulty with balance. She admits she does not remember much detail of that time or the nature of any falls she may have sustained because she states that she "took too much meds" admitting to taking Trazodone and Ambien together more than as prescribed. She states that these medications were prescribed for her by her PCP Dr. Farley. She denies seeing any other health care provider between her last appt with Dr. Sanchez at [facility] for right knee pain and her appt this morning. She denies recollection of any fall, accident, and denies anyone harming her. She states she lives with her boyfriend at her home. Patient underwent reduction in ED which was successful however knee spontaneously then re-dislocates. On exam, patient resting comfortably on gurney in ED. Patient alert and oriented x 3. Nasal cannula with O2 delivery in place. Long leg stabilizing immobilizer noted to be in place to RLE. Inspection RLE reveals no ecchymosis, erythema, or skin disruption. Right knee is nontender to palpation, no induration or edema or effusion noted. Pressure applied to tibial tuberosity notes laxity to central knee joint with subsequent and spontaneous redislocation. Patient is neurovascularly intact with respect to b/l LE. Assessment: Chronic dislocated right knee joint Plan: CTA of right lower extremity being performed to rule out possible vascular compromise given chronic dislocation. Discussed with patient and ED team that plan as discussed with Dr. Luong, pending results of CTA, are to closed reduce the knee and cast in place to allow for soft tissue healing with close follow up to monitor for stiffness in the knee. Did discuss that depending on CTA results, patient may require total knee replacement. Will plan for patient to have close outpatient follow up after treatment as well. Past Med Surg Social Fam HX - Past Medical History Medical history: cancer, CHF, hyperlipidemia, thyroid disease, other Psychiatric history: anxiety, depression - Past Surgical History Surgical History: other (Cannot be obtained due to patient's mental status), appendectomy - Social History Smoking Status: Current every day smoker Smokeless Tobacco Status: No Alcohol use: none Drug use: none - Family History Father Living Status: Hx Family Cardiac Disorders: Yes Hx Family Respiratory Disorders: Yes Mother Living Status: Still Living Medications and Allergies Atorvastatin [Lipitor] 40 mg PO HS 04/10/15 [History] Sertraline [Zoloft] 100 mg PO DAILY 04/10/15 [History] Albuterol Sulfate [Albuterol Inhaler] 2 puff IH Q4H PRN 09/01/16 [History] Levothyroxine [Synthroid] 112 mcg PO QAM 09/01/16 [History] Potassium Chloride [Klor-Con 10] 20 meq PO BID 09/01/16 [History] Baclofen 20 mg PO HS #0 09/04/16 [Rx] Mirabegron [Myrbetriq] 50 mg PO DAILY 06/29/17 [History] ALPRAZolam [Xanax 1 MG Tablet] 1 mg PO BID 07/14/17 [History] Furosemide [Lasix] 40 mg PO DAILY #30 07/17/17 [Rx] Pantoprazole Sodium [Protonix] 40 mg PO BID #60 tablet. 07/17/17 [Rx] BuPROPion SR (12 HR) [Wellbutrin SR] 150 mg PO BID 07/26/17 [History] Ipratropium/Albuterol Neb [Duoneb] 3 ml IH Q6HR PRN 07/26/17 [History] Gabapentin [Neurontin] 300 mg PO TID #45 capsule 07/29/17 [Rx] Oxybutynin [Ditropan] 5 mg PO DAILY #30 tablet 08/16/17 [Rx] Diphenoxylate/Atropine [Lomotil 2.5 mg/0.025 mg] 1 each PO QID PRN #60 tablet [Rx] 3 Allergy/AdvReac Type Severity Reaction Status Date / Time No Known Allergies Allergy Verified 08/22/17 16:11 All Systems Reviewed: A 10-system review of systems was performed and is negative for pertinent findings except as documented above in the HPI. Physical Exam - Constitutional Vitals: Temp Pulse Resp BP Pulse Ox 97.3 F L 78 14 155/76 100 09/18/17 08:10 09/18/17 09:16 09/18/17 09:16 09/18/17 09:16 09/18/17 09:00 Results - Labs Result Diagrams: 09/18/17 09:57 09/18/17 09:57 Labs: Abnormal lab results RBC 3.74 M/mcL (3.82-4.97) L 09/18/17 09:57 Hgb 11.2 g/dL (11.5-15.4) L 09/18/17 09:57 Hct 33.2 % (35.3-44.9) L 09/18/17 09:57 RDW 14.7 % (11.5-14.5) H 09/18/17 09:57 Plt Count 122 K/mcL (140-400) L 09/18/17 09:57 Sodium 131 mEq/L (136-145) L 09/18/17 09:57 Potassium 2.6 mEq/L (3.5-5.1) L 09/18/17 09:57 Chloride 96 mEq/L (98-107) L 09/18/17 09:57 Calculated Osmolality 272 (280-300) L 09/18/17 09:57 H & H 09/18/17 Range/Units 09:57 Hgb 11.2 L (11.5-15.4) g/dL Hct 33.2 L (35.3-44.9) % All other labs normal. Consult Discharge Plan - Plan Referrals: Johnie Farley MD [Primary Care Provider] -
--- NOTE | 2017-09-18 18:44 | Anesthesia Evaluation PreOp ---
Date of Encounter: 09/18/17 Time of Encounter: 18:41 - Past History Planned Operation: Closed Reduction Right Knee Cardiac History: Hyperlipidemia Pulmonary History: Smoker (30 years), COPD, Snore, IVAN Dx (uses CPAP) WATCHSTANDER History: Other (MS) Other Medical History: Thyroid, GERD, Other (obesity BMI=44.9, anxiety/ depression) Anesthesia History: No Prior Anesthetic Complications, Past Anesthesia Alcohol Use: none Drug use: none Medications and Allergies Atorvastatin [Lipitor] 40 mg PO HS 04/10/15 [History] Sertraline [Zoloft] 100 mg PO DAILY 04/10/15 [History] Albuterol Sulfate [Albuterol Inhaler] 2 puff IH Q4H PRN 09/01/16 [History] Levothyroxine [Synthroid] 112 mcg PO QAM 09/01/16 [History] Potassium Chloride [Klor-Con 10] 20 meq PO BID 09/01/16 [History] Baclofen 20 mg PO HS #0 09/04/16 [Rx] Mirabegron [Myrbetriq] 50 mg PO DAILY 06/29/17 [History] ALPRAZolam [Xanax 1 MG Tablet] 1 mg PO BID 07/14/17 [History] Furosemide [Lasix] 40 mg PO DAILY #30 07/17/17 [Rx] Pantoprazole Sodium [Protonix] 40 mg PO BID #60 tablet. 07/17/17 [Rx] BuPROPion SR (12 HR) [Wellbutrin SR] 150 mg PO BID 07/26/17 [History] Ipratropium/Albuterol Neb [Duoneb] 3 ml IH Q6HR PRN 07/26/17 [History] Gabapentin [Neurontin] 300 mg PO TID #45 capsule 07/29/17 [Rx] Oxybutynin [Ditropan] 5 mg PO DAILY #30 tablet 08/16/17 [Rx] Diphenoxylate/Atropine [Lomotil 2.5 mg/0.025 mg] 1 each PO QID PRN #60 tablet [Rx] 3 Allergy/AdvReac Type Severity Reaction Status Date / Time No Known Allergies Allergy Verified 08/22/17 16:11 - Meds/Allergy Pre-op Review Medications Reviewed: Yes Allergies Reviewed: Yes Beta Blockers on Current Med List: No Anesthesia Results - Labs 09/18/17 09:57 09/18/17 09:57 - Imaging EKG: report reviewed (08/21/2017 SINUS RHYTHM) Additional studies: 11/29/2015 Stress Impression: Pharmacologic stress ECG is negative for ischemia at level of heart rate achieved. Gated EF = 62%. Moderate sized, mild intensity, fixed inferior and apex defect. Wall motion is normal. These findings are consistent with artifact. Perfusion imaging was negative for ischemia or infarct. Anesthesia Exam Vital Signs/O2 Sat, Most Current Temp Pulse Resp BP Pulse Ox 97.3 F L 76 16 97/59 96 09/18/17 08:10 09/18/17 18:28 09/18/17 18:28 09/18/17 18:28 09/18/17 18:28 Height: 5'/1.52 m Weight: 230 lbs/104 kg NPO (# of Hours): 8 Pain Scale: 4 (back) Pain Scale Used: Numeric (1 - 10) - HEENT Pupil (Motor): EOMI Mallampati: II Teeth: Normal (broken left upper and lower molars) Oral Opening: Greater than 3 - WATCHSTANDER LOC: Oriented WATCHSTANDER Motor: Deficit RUE, Deficit LUE, Deficit RLE, Deficit LLE, Deficit Face WATCHSTANDER Sensory: Deficit: RUE, LUE, RLE, LLE, Face - Cardiac Rhythm: Regular Murmur: None - Pulmonary Breath Sounds: bilateral Clear Respiratory Effort: Symmetrical Anesthesia Assess/Plan ASA Score: 3 Modified [place] Scale for Level of Consciousness: Cooperative, oriented, and tranquil Anesthetic Plan: General Monitoring Plan: Standard Monitors Recovery Plan: PACU
--- NOTE | 2017-09-18 19:25 | Discharge Summary ---
Outpatient Proc Discharge Plan - Plan Additional Instructions: Weightbearing as tolerated in cast Keep cast dry Follow-up Monday with Dr. Sanchez 10 AM Home Medications: Atorvastatin [Lipitor] 40 mg PO HS 04/10/15 [History] Sertraline [Zoloft] 100 mg PO DAILY 04/10/15 [History] Albuterol Sulfate [Albuterol Inhaler] 2 puff IH Q4H PRN 09/01/16 [History] Levothyroxine [Synthroid] 112 mcg PO QAM 09/01/16 [History] Potassium Chloride [Klor-Con 10] 20 meq PO BID 09/01/16 [History] Baclofen 20 mg PO HS #0 09/04/16 [Rx] Mirabegron [Myrbetriq] 50 mg PO DAILY 06/29/17 [History] ALPRAZolam [Xanax 1 MG Tablet] 1 mg PO BID 07/14/17 [History] Furosemide [Lasix] 40 mg PO DAILY #30 07/17/17 [Rx] Pantoprazole Sodium [Protonix] 40 mg PO BID #60 tablet. 07/17/17 [Rx] BuPROPion SR (12 HR) [Wellbutrin SR] 150 mg PO BID 07/26/17 [History] Ipratropium/Albuterol Neb [Duoneb] 3 ml IH Q6HR PRN 07/26/17 [History] Gabapentin [Neurontin] 300 mg PO TID #45 capsule 07/29/17 [Rx] Oxybutynin [Ditropan] 5 mg PO DAILY #30 tablet 08/16/17 [Rx] Diphenoxylate/Atropine [Lomotil 2.5 mg/0.025 mg] 1 each PO QID PRN #60 tablet [Rx] HYDROcodone/Acet 5/325 mg [[place] 5-325 mg] 1 tab PO Q6H PRN #14 tab 09/18/17 [Rx ] Forms (Work/Release): ED Satisfaction Letter
--- NOTE | 2017-09-18 19:50 | Orthopedic Operative Note ---
Date of procedure: 09/18/17 Pre-op diagnosis: Dislocated right knee Post-op diagnosis: same Procedure: Procedure: Closed reduction right knee Estimated blood loss 0 Indications for surgery patient is a 57-year-old female presents to the office today with a dislocated right knee patient denies any significant trauma recently. But has had multiple falls. Patient has not ambulated for weeks. Patient was sent to the emergency room had an angiogram which was negative for arterial injury patient had an attempted closed reduction was unstable. Patient was indicated for closed reduction in the operating room. Dictation of procedure. Patient with posterior subluxation of the femur first the tibia. Closed reduction with the knee in flexion was performed fluoroscopic assistance confirmed semi-reduced position. Decision was made to leave patient is positioned in the cast to stabilize the soft tissues plan will be for a constrained total knee replacement on an elective basis. This was discussed with the patient prior to the surgery Patient was extubated and transferred to recovery room stable condition. Anesthesia: GETA Surgeon: Cesar Luong Was there an senior care assistant present: No Estimated blood loss (cc): 0 Condition: stable Disposition: PACU
[2017-09-18] MEDS ORDERED: Diphenoxylate/Atropine 1 TAB TABLET PO PRN (20:18)
[2017-09-18] MEDS ORDERED: Sennosides 8.6 MG TABLET PO PRN (20:18)
[2017-09-18] MEDS ORDERED: *HR* OxyCODONE Immed Rel 5 MG TABLET PO PRN (20:18)
[2017-09-18] MEDS ORDERED: Ipratropium/Albuterol Neb 3 ML IH PRN (20:18)
[2017-09-18] MEDS ORDERED: Naloxone 0.4 MG/ML INJ IVP PRN (20:18)
--- NOTE | 2017-09-18 20:48 | Anesthesia Evaluation Post Op ---
Date of Encounter: 09/18/17 Time of Encounter: 20:47 - Vital Signs Vital Signs: Vital Signs/O2 Sat, Most Current Temp Pulse Resp BP Pulse Ox 97.6 F 78 16 122/78 94 09/18/17 20:03 09/18/17 20:23 09/18/17 20:23 09/18/17 20:23 09/18/17 20:23 - Lungs Lungs: Clear Ascult./Percussion - Airway Airway: Non-obstructed - Cardiovascular Irregular Rate - Mental Status Mental Status: Alert & Oriented, Answers Appropriately - Pain Pain Scale: 0 Pain Scale used: Numeric (1 - 10) - Nausea Vomiting Nausea Vomiting: Not Present - Hydration Hydration: NPO, Has not voided - Discharge PostOp Status: Transfer Patient to floor
[2017-09-18] MEDS: BuPROPion SR (12 HR) 150 MG TABLET PO SCH (21:58)
[2017-09-18] MEDS: ALPRAZolam 1 MG TABLET PO SCH (21:58)
[2017-09-18] MEDS: Gabapentin 300 MG CAPSULE PO SCH (21:58)
[2017-09-18] MEDS: Baclofen 10 MG TABLET PO SCH (21:58)
[2017-09-18] MEDS: *HR* OxyCODONE Immed Rel 5 MG TABLET PO PRN (23:33)
--- NOTE | 2017-09-19 07:00 | Discharge Summary ---
Date of Encounter: 09/19/17 Time of Encounter: 06:58 - Discharge Diagnosis (1) Obstructive sleep apnea Priority: Secondary Status: Chronic (2) Morbid obesity with BMI of 40.0-44.9, adult Priority: Secondary Status: Chronic (3) Multiple sclerosis Priority: Secondary Status: Chronic (4) Hypothyroid Priority: Secondary Status: Chronic Qualifiers: Hypothyroidism type: unspecified Qualified Code(s): E03.9 - Hypothyroidism , unspecified (5) Hyperlipemia Priority: Secondary Status: Chronic Qualifiers: Hyperlipidemia type: unspecified Qualified Code(s): E78.5 - Hyperlipidemia , unspecified (6) Mood disorder Priority: Secondary Status: Chronic (7) Polysubstance abuse Priority: Secondary Status: Chronic (8) Depression Priority: Secondary Status: Chronic Qualifiers: Depression Type: major depressive disorder Major depression recurrence: recurrent Active/Remission status: in remission of unspecified degree Qualified Code(s): F33.40 - Major depressive disorder, recurrent, in remission, unspecified (9) CHF (congestive heart failure) Priority: Secondary Status: Chronic Qualifiers: Congestive heart failure type: diastolic Congestive heart failure chronicity: chronic Qualified Code(s): I50.32 - Chronic diastolic (congestive ) heart failure (10) Schizophrenia Priority: Secondary Status: Chronic Qualifiers: Schizophrenia type: unspecified Qualified Code(s): F20.9 - Schizophrenia, unspecified (11) Dislocation of right knee Priority: Primary Status: Acute Qualifiers: Encounter type: initial encounter Qualified Code(s): S83.104A - Unspecified dislocation of right knee, initial encounter - Discharge Medications Home Medications: Atorvastatin [Lipitor] 40 mg PO HS 04/10/15 [History] Sertraline [Zoloft] 100 mg PO DAILY 04/10/15 [History] Albuterol Sulfate [Albuterol Inhaler] 2 puff IH Q4H PRN 09/01/16 [History] Levothyroxine [Synthroid] 112 mcg PO QAM 09/01/16 [History] Potassium Chloride [Klor-Con 10] 20 meq PO BID 09/01/16 [History] Baclofen 20 mg PO HS #0 09/04/16 [Rx] Mirabegron [Myrbetriq] 50 mg PO DAILY 06/29/17 [History] ALPRAZolam [Xanax 1 MG Tablet] 1 mg PO BID 07/14/17 [History] Furosemide [Lasix] 40 mg PO DAILY #30 07/17/17 [Rx] Pantoprazole Sodium [Protonix] 40 mg PO BID #60 tablet. 07/17/17 [Rx] BuPROPion SR (12 HR) [Wellbutrin SR] 150 mg PO BID 07/26/17 [History] Ipratropium/Albuterol Neb [Duoneb] 3 ml IH Q6HR PRN 07/26/17 [History] Gabapentin [Neurontin] 300 mg PO TID #45 capsule 07/29/17 [Rx] Oxybutynin [Ditropan] 5 mg PO DAILY #30 tablet 08/16/17 [Rx] Diphenoxylate/Atropine [Lomotil 2.5 mg/0.025 mg] 1 each PO QID PRN #60 tablet [Rx] HYDROcodone/Acet 5/325 mg [[place] 5-325 mg] 1 tab PO Q6H PRN #14 tab 09/18/17 [Rx ] HYDROcodone/Acet 5/325 mg [[place] 5-325 mg] 1 tab PO Q6H PRN #14 tab 09/18/17 [Rx ] Allergies/Adverse Reactions: 3 Allergy/AdvReac Type Severity Reaction Status Date / Time No Known Allergies Allergy Verified 08/22/17 16:11 Date of admission: 09/18/17 19:51 Primary care physician: Johnie Farley MD - Patient Status Disposition: Home, Self-Care Condition: Fair Functional capacity at discharge: uses cane/walker Overall status at discharge: patient is progressing back to baseline - Discharge Instructions Follow Up With: Johnie Farley MD [Primary Care Provider] - - Hospital Course Hospital course: Ms. Copeland is a 57 year old female Patient was seen in the office yesterday with a dislocated right knee patient does not know how it happened. Patient was transferred to the ER and an angiogram which was negative attempted closed reduction in the emergency room was unsuccessful. Patient was taken to the operating room and underwent a closed reduction and casting postreduction films show better alignment. Patient be discharged and follow-up as an outpatient for definitive management. - Time Spent with Patient Total time spent providing and/or coordinating discharge services: - VTE Reasons for not Prescribing Prophylaxis: Treatment not Indicated - Low risk for VTE
--- NOTE | 2017-09-19 07:01 | Orthopedics Progress Note ---
Date of Encounter: 09/19/17 Time of Encounter: 07:01 - Assessment and Plan (1) Obstructive sleep apnea Current Visit: Yes Status: Chronic (2) Morbid obesity with BMI of 40.0-44.9, adult Current Visit: Yes Status: Chronic (3) Multiple sclerosis Current Visit: No Status: Chronic (4) Hypothyroid Current Visit: No Status: Chronic Qualifiers: Hypothyroidism type: unspecified Qualified Code(s): E03.9 - Hypothyroidism , unspecified (5) Hyperlipemia Current Visit: No Status: Chronic Qualifiers: Hyperlipidemia type: unspecified Qualified Code(s): E78.5 - Hyperlipidemia , unspecified (6) Mood disorder Current Visit: No Status: Chronic (7) Polysubstance abuse Current Visit: No Status: Chronic (8) Depression Current Visit: No Status: Chronic Qualifiers: Depression Type: major depressive disorder Major depression recurrence: recurrent Active/Remission status: in remission of unspecified degree Qualified Code(s): F33.40 - Major depressive disorder, recurrent, in remission, unspecified (9) CHF (congestive heart failure) Current Visit: No Status: Chronic Qualifiers: Congestive heart failure type: diastolic Congestive heart failure chronicity: chronic Qualified Code(s): I50.32 - Chronic diastolic (congestive ) heart failure (10) Schizophrenia Current Visit: No Status: Chronic Qualifiers: Schizophrenia type: unspecified Qualified Code(s): F20.9 - Schizophrenia, unspecified (11) Dislocation of right knee Current Visit: Yes Status: Acute Qualifiers: Encounter type: initial encounter Qualified Code(s): S83.104A - Unspecified dislocation of right knee, initial encounter Subjective Interval history: Patient doing well cast intact right lower extremity neurovascularly intact discharged today Objective Vital signs: Vital Signs Temp Pulse Resp BP Pulse Ox 09/19/17 03:56 98.0 F 81 16 112/72 94 09/18/17 22:44 97.9 F 86 16 112/65 93 09/18/17 21:48 97.4 F L 76 16 100/60 95 09/18/17 21:15 97.4 F L 76 16 99/65 94 09/18/17 21:06 97.8 F 76 18 100/63 84 09/18/17 20:42 78 16 96 09/18/17 20:33 97.7 F 75 16 112/65 94 09/18/17 20:23 78 16 122/78 94 09/18/17 20:13 78 17 104/66 94 09/18/17 20:03 97.6 F 88 16 99/65 96 Intake and Output 09/18/17 09/18/17 09/19/17 15:59 23:59 07:59 Output Total 1000 / 1000 Balance -1000 / -1000 Output: Urine 1000 / 1000 - Labs CBC & BMP: 09/18/17 09:57 09/18/17 09:57 Labs: Abnormal lab results RBC 3.74 M/mcL (3.82-4.97) L 09/18/17 09:57 Hgb 11.2 g/dL (11.5-15.4) L 09/18/17 09:57 Hct 33.2 % (35.3-44.9) L 09/18/17 09:57 RDW 14.7 % (11.5-14.5) H 09/18/17 09:57 Plt Count 122 K/mcL (140-400) L 09/18/17 09:57 Sodium 131 mEq/L (136-145) L 09/18/17 09:57 Potassium 2.6 mEq/L (3.5-5.1) L 09/18/17 09:57 Chloride 96 mEq/L (98-107) L 09/18/17 09:57 Calculated Osmolality 272 (280-300) L 09/18/17 09:57 - VTE Reasons for not Prescribing Prophylaxis: Treatment not Indicated - Low risk for VTE Consult Discharge Plan - Plan Referrals: Johnie Farley MD [Primary Care Provider] -
[2017-09-19] MEDS ORDERED: Mirabegron [Myrbetriq] 50 MG PO SCH (09:00)
[2017-09-19] MEDS: Furosemide 40 MG TABLET PO SCH (09:09)
[2017-09-19] MEDS: Gabapentin 300 MG CAPSULE PO SCH ×3 (09:09→20:43)
[2017-09-19] MEDS: BuPROPion SR (12 HR) 150 MG TABLET PO SCH ×2 (09:09→20:43)
[2017-09-19] MEDS: ALPRAZolam 1 MG TABLET PO SCH ×2 (09:09→20:43)
[2017-09-19] MEDS: *HR* OxyCODONE Immed Rel 5 MG TABLET PO PRN ×2 (09:09→15:00)
[2017-09-19] MEDS: Baclofen 10 MG TABLET PO SCH (20:43)
[2017-09-20] MEDS: *HR* OxyCODONE Immed Rel 5 MG TABLET PO PRN ×4 (00:32→14:22)
[2017-09-20 06:54] VITALS: BP 105/71
[2017-09-20 08:23] LABS: BUN/Creatinine Ratio 10 (6-26); Blood Urea Nitrogen 9 mg/dL (6-20); Calcium 8.5 mg/dL (8.6-10.3); Carbon Dioxide 30 mEq/L (23-29); Chloride 104 mEq/L (98-107); Glucose 96 mg/dL (70-105); Osmolality,Calculated 285 (280-300); Potassium 3.3 mEq/L (3.5-5.1); Sodium 138 mEq/L (136-145); eGFR For African Americans > 60 (> 60); eGFR For Non-African Americans > 60 (> 60)
[2017-09-20] MEDS: Furosemide 40 MG TABLET PO SCH (09:30)
[2017-09-20] MEDS: Gabapentin 300 MG CAPSULE PO SCH ×2 (09:30→14:23)
[2017-09-20] MEDS: BuPROPion SR (12 HR) 150 MG TABLET PO SCH (09:31)
--- NOTE | 2017-09-20 10:45 | Orthopedics Progress Note ---
Date of Encounter: 09/20/17 Time of Encounter: 10:44 - Assessment and Plan (1) Obstructive sleep apnea Current Visit: Yes Status: Chronic (2) Morbid obesity with BMI of 40.0-44.9, adult Current Visit: Yes Status: Chronic (3) Multiple sclerosis Current Visit: No Status: Chronic (4) Hypothyroid Current Visit: No Status: Chronic Qualifiers: Hypothyroidism type: unspecified Qualified Code(s): E03.9 - Hypothyroidism , unspecified (5) Hyperlipemia Current Visit: No Status: Chronic Qualifiers: Hyperlipidemia type: unspecified Qualified Code(s): E78.5 - Hyperlipidemia , unspecified (6) Mood disorder Current Visit: No Status: Chronic (7) Polysubstance abuse Current Visit: No Status: Chronic (8) Depression Current Visit: No Status: Chronic Qualifiers: Depression Type: major depressive disorder Major depression recurrence: recurrent Active/Remission status: in remission of unspecified degree Qualified Code(s): F33.40 - Major depressive disorder, recurrent, in remission, unspecified (9) CHF (congestive heart failure) Current Visit: No Status: Chronic Qualifiers: Congestive heart failure type: diastolic Congestive heart failure chronicity: chronic Qualified Code(s): I50.32 - Chronic diastolic (congestive ) heart failure (10) Schizophrenia Current Visit: No Status: Chronic Qualifiers: Schizophrenia type: unspecified Qualified Code(s): F20.9 - Schizophrenia, unspecified (11) Dislocation of right knee Current Visit: Yes Status: Acute Qualifiers: Encounter type: initial encounter Qualified Code(s): S83.104A - Unspecified dislocation of right knee, initial encounter Subjective Interval history: Patient doing well cast intact right lower extremity neurovascularly intact discharged today discharge held yesterday secondary to therapy recommendation Objective Vital signs: Vital Signs Temp Pulse Resp BP Pulse Ox 09/20/17 06:53 97.9 F 83 17 105/71 95 09/20/17 04:58 98.0 F 85 16 106/69 99 09/20/17 03:31 98.0 F 85 15 144/80 99 09/20/17 00:35 98.3 F 88 16 101/64 96 09/19/17 19:11 98.7 F 85 16 110/72 96 09/19/17 16:49 98.0 F 84 16 113/68 95 09/19/17 11:36 98.7 F 80 16 131/80 96 Intake and Output 09/19/17 09/20/17 09/20/17 23:59 07:59 15:59 Intake Total 50 / 50 50 / 50 Output Total 350 / 350 Balance 50 / 50 -300 / -300 Intake: Oral 50 / 50 50 / 50 Output: Urine 350 / 350 Other: Stool Size Moderate Stool Consistency formed Stool Characteristics Normal for Patient Stool Color Brown # Voids 2 # Bowel Movements 1 - Labs CBC & BMP: 09/18/17 09:57 09/20/17 06:48 Labs: Abnormal lab results RBC 3.74 M/mcL (3.82-4.97) L 09/18/17 09:57 Hgb 11.2 g/dL (11.5-15.4) L 09/18/17 09:57 Hct 33.2 % (35.3-44.9) L 09/18/17 09:57 RDW 14.7 % (11.5-14.5) H 09/18/17 09:57 Plt Count 122 K/mcL (140-400) L 09/18/17 09:57 Potassium 3.3 mEq/L (3.5-5.1) L 09/20/17 06:48 Carbon Dioxide 30 mEq/L (23-29) H 09/20/17 06:48 Calcium 8.5 mg/dL (8.6-10.3) L 09/20/17 06:48 - VTE Reasons for not Prescribing Prophylaxis: Treatment not Indicated - Low risk for VTE Consult Discharge Plan - Plan Referrals: Johnie Farley MD [Primary Care Provider] -
[2017-09-20] MEDS: ALPRAZolam 1 MG TABLET PO SCH (12:05)
--- NOTE | 2017-09-20 13:59 | Physician Discharge Referral ---
Home Health/Hosp Referral Info Transfer to: Home Health Attending Provider: Dr Cesar Luong - Diagnosis (1) Dislocation of right knee Priority: Primary Status: Acute - Respiratory Orders Smoking Cessation: Smoking cessation has been advised. For more information, call the [place] Tobacco Quit Line at 0-920-YHNA-NOW. - Dressing/Wound Care Site: right leg Type of Dressing/Treatments w/Frequency: Long leg cast in place Please monitor for skin break down Cast to remain in place until scheduled follow up - Diet/Nutrition Diet/Nutrition Orders: Regular - Activity Activity Orders: Up ad jovany, Ambulate, Walker Activity: List: Full weight bearing as tolerated Ambulate with walker Leave cast in place Keep follow up as scheduled - Services Needed Following services are medically necessary services: Nursing, Home Health Aide, Physical Therapy, Occupational Therapy - Transfer Medications Home Medications: Atorvastatin [Lipitor] 40 mg PO HS 04/10/15 [History] Sertraline [Zoloft] 100 mg PO DAILY 04/10/15 [History] Levothyroxine [Synthroid] 112 mcg PO QAM 09/01/16 [History] Potassium Chloride [Klor-Con 10] 20 meq PO BID 09/01/16 [History] Baclofen 20 mg PO HS #0 09/04/16 [Rx] Mirabegron [Myrbetriq] 50 mg PO DAILY 06/29/17 [History] ALPRAZolam [Xanax 1 MG Tablet] 1 mg PO BID 07/14/17 [History] Furosemide [Lasix] 40 mg PO DAILY #30 07/17/17 [Rx] Pantoprazole Sodium [Protonix] 40 mg PO BID #60 tablet. 07/17/17 [Rx] BuPROPion SR (12 HR) [Wellbutrin SR] 150 mg PO BID 07/26/17 [History] Ipratropium/Albuterol Neb [Duoneb] 3 ml IH Q6HR PRN 07/26/17 [History] Gabapentin [Neurontin] 300 mg PO TID #45 capsule 07/29/17 [Rx] Oxybutynin [Ditropan] 5 mg PO DAILY #30 tablet 08/16/17 [Rx] Diphenoxylate/Atropine [Lomotil 2.5 mg/0.025 mg] 1 each PO QID PRN #60 tablet [Rx] Amitriptyline [Elavil] 25 mg PO HS 09/19/17 [History] Buspirone HCl [Buspar] 10 mg PO BID PRN 09/19/17 [History] Famotidine [Heartburn Prevention] 20 mg PO DAILY 09/19/17 [History] Fluticasone Propionate [Flovent Hfa] 1 puff IH AD 09/19/17 [History] Ibuprofen [Motrin] 600 mg PO BID 09/19/17 [History] Meloxicam [Mobic] 15 mg PO DAILY 09/19/17 [History] Nystatin POWDER [Nystop] 1 appl TP AD 09/19/17 [History] OxyCODONE/APAP 5/325 [Percocet 5/325 MG] 1 tab PO QID PRN 09/19/17 [History] Promethazine [Phenergan] 25 mg PO Q8HR 09/19/17 [History] Quetiapine Fumarate [Seroquel] 50 mg PO DAILY 09/19/17 [History] Allergies/Adverse Reactions: 3 Allergy/AdvReac Type Severity Reaction Status Date / Time No Known Allergies Allergy Verified 08/22/17 16:11 Certification: Further, I certify that my clinical findings support that this patient is homebound (i.e. absences from home require considerable and taxing effort and are for medical reasons or yazdanism services or infrequently or short duration when for other reasons) because: Homebound Reason: Leaving home requires considerable and taxing effort due to condition Attestation: My signature below is to certify that this patient is under my care and that I, or nurse practitioner, or a physician medical office receptionist assistant working with me, has a face-to- face encounter with this patient.
== END 2017-09-20 14:50 | disposition home health service (06) ==
LOC: 3NENU 08:08 → EMEROO 08:08 → 3NENU 18:37 → EMEROO 18:37
PROVIDERS: ADMIT Orthopaedic Surgery; ATTEND Orthopaedic Surgery

== ENCOUNTER 2017-09-23 08:59 | Observation (INO) ==
--- NOTE | 2017-09-23 09:24 | Emergency Department Note ---
Disposition Clinical Impression: Cast discomfort Altered mental status Qualifiers: Altered mental status type: disorientation Qualified Code(s): R41.0 - Disorientation, unspecified Disposition: Admitted As Inpatient Condition: Good Time of Disposition: 14:07 Extremity Problem HPI - General Chief complaint: ED Extremity Problem,Nontraumatic Stated complaint: r knee pain Time Seen by Provider: 09/23/17 09:10 Source: patient, EMS Mode of arrival: EMS Limitations: physical limitation Nursing Notes Reviewed: Yes Vital Signs Reviewed: Yes - History of Present Illness HPI Narrative: Patient is a 57-year-old female that presents to the ED via EMS with chief complaint my right cast is slipping. Pt states yesterday she was ambulating and she felt like her cast was slipping. "States the padding has moved at the end of my cast and the cast is sharp and hurts when it hits my ankle." Patient reports that she recently had an open knee reduction by Dr. Luong on 09/20/17. She denies any fever, chills, nausea, vomiting, chest pain or shortness of breath. States that she called Dr. Luong's office this morning and he recommended that she come to the ED to have cast removed and to be put her in a knee brace. Pt reports that she is prescribed percocet for pain but hasn't really need them as often as prescribed bc her pain has been controlled. But does report right knee pain that hasn't change in consistency or frequency since her surgery. Only knew symptoms is pain when cast rubs on ankle from not enough padding down there per pt. Onset (ago): day(s) (yesterday) Consistency: constant Injury Location: right, lower extremity Pain Scale: 8 Quality: aching, dull Radiation: none Improves with: nothing Worsens with: nothing Associated symptoms: Reports: denies other symptoms. Denies: chest pain, shortness of breath, abdominal pain, back pain, bowel/bladder symptoms, fever, myalgias, arthralgias, rash, change in appearance, swelling, redness Context: recent surgery/procedure - Related Data Home Medications Medication Instructions Recorded Confirmed Atorvastatin [Lipitor] 40 mg PO HS 04/10/15 09/23/17 Sertraline [Zoloft] 100 mg PO DAILY 04/10/15 09/23/17 Levothyroxine [Synthroid] 112 mcg PO QAM 09/01/16 09/23/17 Potassium Chloride [Klor-Con 10] 20 meq PO BID 09/01/16 09/23/17 Mirabegron [Myrbetriq] 50 mg PO DAILY 06/29/17 09/23/17 ALPRAZolam [Xanax 1 MG Tablet] 1 mg PO BID PRN 07/14/17 09/23/17 BuPROPion SR (12 HR) [Wellbutrin 150 mg PO BID 07/26/17 09/23/17 SR] Ipratropium/Albuterol Neb [Duoneb] 3 ml IH Q6HR PRN 07/26/17 09/23/17 Amitriptyline [Elavil] 25 mg PO HS 09/19/17 09/23/17 Buspirone HCl [Buspar] 10 mg PO BID 09/19/17 09/23/17 Famotidine [Heartburn Prevention] 20 mg PO DAILY 09/19/17 09/23/17 Fluticasone Propionate [Flovent 1 puff IH BID 09/19/17 09/23/17 Hfa] Ibuprofen [Motrin] 600 mg PO BID 09/19/17 09/23/17 Meloxicam [Mobic] 15 mg PO DAILY 09/19/17 09/23/17 Nystatin POWDER [Nystop] 1 appl TP BID 09/19/17 09/23/17 OxyCODONE/APAP 5/325 [Percocet 1 tab PO QID PRN 09/19/17 09/23/17 5/325 MG] Promethazine [Phenergan] 25 mg PO Q8HR PRN 09/19/17 09/23/17 Quetiapine Fumarate [Seroquel] 75 mg PO HS 09/19/17 09/23/17 Baclofen 20 mg PO BID 09/23/17 09/23/17 Diphenoxylate/Atropine [Lomotil 1 tab PO QID PRN 09/23/17 09/23/17 2.5 mg/0.025 mg] Melatonin/Pyridoxine HCl (B6) 5 mg PO HS PRN 09/23/17 09/23/17 [Melatonin 5 mg Tablet] Previous Rx's Medication Instructions Recorded Furosemide [Lasix] 40 mg PO DAILY #30 07/17/17 Pantoprazole Sodium [Protonix] 40 mg PO BID #60 tablet. 07/17/17 Gabapentin [Neurontin] 300 mg PO TID #45 capsule 07/29/17 Oxybutynin [Ditropan] 5 mg PO DAILY #30 tablet 08/16/17 Allergies Allergy/AdvReac Type Severity Reaction Status Date / Time No Known Allergies Allergy Verified 08/22/17 16:11 All systems ED: reviewed and negative except as stated. Review of Systems: As Per HPI Constitutional: Denies: fever, chills, weakness Cardiovascular: Denies: chest pain, palpitations, dyspnea on exertion, orthopnea , edema, syncope, paroxysmal nocturnal dyspnea Respiratory: Denies: cough, dyspnea, wheezes, hemoptysis Gastrointestinal: Denies: abdominal pain, nausea, vomiting, diarrhea Musculoskeletal: Denies: back pain, neck pain Integumentary: Denies: rash Neurological: Denies: numbness, paresthesias, confusion Past Medical History - Past Medical History Medical history: Reports: cancer, CHF, hyperlipidemia, thyroid disease, other Surgical history: Reports: other, appendectomy Psychiatric history: Reports: anxiety, depression [employer] history: Reports: bilateral tubal ligation - Social History Smoking Status: Current every day smoker Smokeless Tobacco Status: No Alcohol use: Reports: none Drug use: Reports: marijuana Physical Exam - General Limitations: physical limitation General appearance: appears intoxicated Course Course Narrative: Patient is a 57-year-old female that presents to the ED via EMS with chief complaint my right cast is slipping. Pt states yesterday she was ambulating and she felt like her cast was slipping. "States the padding has moved at the end of my cast and the cast is sharp and hurts when it hits my ankle." Patient reports that she recently had an open knee reduction by Dr. Luong on 09/20/17. She denies any fever, chills, nausea, vomiting, chest pain or shortness of breath. States that she called Dr. Luong's office this morning and he recommended that she come to the ED to have cast removed and to be put her in a knee brace. Pt reports that she is prescribed percocet for pain but hasn't really need them as often as prescribed bc her pain has been controlled and they make her EXTREMLY SLEEPY. Pt took a percocet prior to arrival. But does report right knee pain that hasn't change in consistency or frequency since her surgery. Only knew symptoms is pain when cast rubs on ankle from not enough padding down there per pt. Patient is an obese appearing 57-year-old female. Very well/non-toxic appearing. Vital stable. Afebrile. Alert and oriented 3. Appears in acute distress. Heart RRR. Lungs CTAB. Extremity long casts placed noted to left lower extremity. Normal inspection of ankle and foot. It does appear that the edge of the cast rubs when pt's flexed her foot. But there is no redness, abrasion, laceration, wound or signs of injury noted from the cast rubbing on her ankle with ankle flexed. Reviewed procedure note. Dr. Luong paged since this is his patient. Discussed case with Dr. luong. Dr. Luong recommended 2 things. States he did patient auction. States that #1 we can leave splint on until Monday. On re-evaluation. I had to wake up pt in the room. She was woken with voice. Discussed this with patient. She states that she will keep the cast on and just wait until Monday to be seen. Pt called [facility] to have her pick her up in ED since she [facility]. Telephone number provided by pt for nurse to call. Александр arrived to ED to take patient home. Pt was sleeping. Pt was woken up when you said her name in the room. I discussed with александр that we were going to let her wake up a little more before we discharged her home since she lives on the 2nd floor and feels sleepy and has a cast on her right lower extremity. Pt asked for coffee, states again the percocet makes my tired and coffee would help. Boyfriend told nurse he was going to leave and go outside to roll cigarettes. ON re-evaluation. at 12:23PM patient was again sleeping. 0.4 mg narcan given x 2 patient still appeared drowsy and kept falling back asleep. Pt would wake up , talk, could read the nurses badge and knew where she was but wanted to go back to sleep. I asked the pt, if her bf gave her anything she said no i only had 1 percocet this morning. Discussed case with Dr. Falk, we both entered the room together at 12:24 to talk to the patient. At this time patient was alert but started having slurred speech and acted confused. She was still very sleepy appearing. MENTAL STATUS CHANGE called @ 12:24 since pt was now slurring her speech and confusion. STOKE ALERT CALLED by DR. Nielsen. Case was handed over to Cindy Rodriguez for stroke work up secondary CT of head shows no acute intercranial abnormalities. Neurologist from [facility] assessed patient over telemetry. He stated that she had no neurological deficits on examination is he us not convinced this is a stroke. Patient would wake up to talk to him and answer some questions appropriately and then fall back asleep and start snoring. He asked us to give patient Narcan. We gave patient Narcan per his request again and she woke up and again started talking to him for about 10 seconds before going back to sleep. Patient has continued to wake up every time we give her Narcan but then goes right back to sleep. Neurologist from [facility] Still recommended admission for obs and CT angiogram of the head and neck. Recommended no TPA. Pt is still slurring her speech but if you ask her anything about her boyfriend , ex) if she feels safe or if is mean to her, she stops slurring her speech and will tell you NO and starts taking normal for several seconds. This was also heard by the nurse. Discussed case with the hospitalist Dr. Mccrary. He accepted patient. No other request at this time. Patient stable for the floor. CT angios still pending. Dr. Oneil had [id number] time with patient and agrees with my assessment and treatment plan. Vital Signs Temperature 97.5 F L 09/23/17 09:08 Pulse Rate 76 09/23/17 09:08 Respiratory Rate 12 09/23/17 09:08 Blood Pressure 102/65 09/23/17 09:08 O2 Sat by Pulse Oximetry 96 09/23/17 09:08 Temperature 97.5 F L 09/23/17 09:16 Pulse Rate 74 09/23/17 15:24 Respiratory Rate 14 09/23/17 15:24 Blood Pressure 107/68 09/23/17 15:24 O2 Sat by Pulse Oximetry 97 09/23/17 15:24 Oxygen Delivery Oxygen Delivery Room Air Extremity Problem, Nontraumati - Medical Records Medical records reviewed: Yes I reviewed the patient's medical records. - Lab Data Lab results reviewed: Yes I reviewed the patient's lab results. Result diagrams: 09/23/17 12:47 09/23/17 12:47 Lab Results 09/23/17 09/23/17 09/23/17 Range/Units 12:47 12:47 12:47 WBC 5.8 (4.3-11.1) K/mcL RBC 3.70 L (3.82-4.97) M/mcL Hgb 11.1 L (11.5-15.4) g/dL Hct 33.3 L (35.3-44.9) % MCV 90.0 (83.0-100.0) fL MCH 30.0 (28.0-33.3) pg MCHC 33.3 (31.6-35.5) g/dL RDW 14.8 H (11.5-14.5) % Plt Count 133 L (140-400) K/mcL MPV 11.3 (9.4-12.4) fL Immature Gran % 0.5 (0-4) % Seg Neutrophils % 71.6 % Lymphocytes % 16.3 % Monocytes % 7.1 % Eosinophils % 4.0 % Basophils % 0.5 % Neutrophils # 4.1 (1.6-8.9) K/mcL Lymphocytes # 0.9 (0.6-4.6) K/mcL Monocytes # 0.4 (0.0-1.3) K/mcL Eosinophils # 0.2 (0.0-0.6) K/mcL Basophils # 0.0 (0.0-0.2) K/mcL PT (9.4-12.1) Seconds INR APTT (26.0-36.0) Seconds Sodium 135 L (136-145) mEq/L Potassium 3.6 (3.5-5.1) mEq/L Chloride 100 (98-107) mEq/L Carbon Dioxide 31 H (23-29) mEq/L BUN 13 (6-20) mg/dL Creatinine 0.93 (0.60-1.20) mg/dL Est GFR ( Amer) > 60 (> 60) Est GFR (Non-Af Amer) > 60 (> 60) BUN/Creatinine Ratio 14 (6-26) Glucose 91 (70-105) mg/dL Calculated Osmolality 280 (280-300) Calcium 9.3 (8.6-10.3) mg/dL Troponin I < 0.03 (< 0.04) ng/mL Urine Opiates Screen (Styane=290) ng/mL Ur Barbiturates Screen (Zbooce=001) ng/mL Ur Phencyclidine Scrn (Cutoff=25) ng/mL Ur Amphetamines Screen (Hvbyic=5738) ng/mL U Benzodiazepines Scrn (Tqtaej=099) ng/mL Urine Cocaine Screen (Cutoff= 300) ng/mL U Marijuana (THC) Screen (Cutoff = 50) ng/mL Specimen Rejected 09/23/17 09/23/17 09/23/17 Range/Units 12:47 13:26 13:38 WBC (4.3-11.1) K/mcL RBC (3.82-4.97) M/mcL Hgb (11.5-15.4) g/dL Hct (35.3-44.9) % MCV (83.0-100.0) fL MCH (28.0-33.3) pg MCHC (31.6-35.5) g/dL RDW (11.5-14.5) % Plt Count (140-400) K/mcL MPV (9.4-12.4) fL Immature Gran % (0-4) % Seg Neutrophils % % Lymphocytes % % Monocytes % % Eosinophils % % Basophils % % Neutrophils # (1.6-8.9) K/mcL Lymphocytes # (0.6-4.6) K/mcL Monocytes # (0.0-1.3) K/mcL Eosinophils # (0.0-0.6) K/mcL Basophils # (0.0-0.2) K/mcL PT 11.0 (9.4-12.1) Seconds INR 1.0 APTT 31.5 (26.0-36.0) Seconds Sodium (136-145) mEq/L Potassium (3.5-5.1) mEq/L Chloride (98-107) mEq/L Carbon Dioxide (23-29) mEq/L BUN (6-20) mg/dL Creatinine (0.60-1.20) mg/dL Est GFR ( Amer) (> 60) Est GFR (Non-Af Amer) (> 60) BUN/Creatinine Ratio (6-26) Glucose (70-105) mg/dL Calculated Osmolality (280-300) Calcium (8.6-10.3) mg/dL Troponin I (< 0.04) ng/mL Urine Opiates Screen Positive H (Lxrpay=312) ng/mL Ur Barbiturates Screen Negative (Jqeiot=754) ng/mL Ur Phencyclidine Scrn Negative (Cutoff=25) ng/mL Ur Amphetamines Screen Negative (Kylmls=9994) ng/mL U Benzodiazepines Scrn Positive H (Lewgmh=296) ng/mL Urine Cocaine Screen Negative (Cutoff= 300) ng/mL U Marijuana (THC) Screen Positive H (Cutoff = 50) ng/mL Specimen Rejected Clotted - Radiology Data Radiology results reviewed: Yes I reviewed the patient's radiology results. - EKG Data EKG attestation: Yes I reviewed and interpreted this EKG. Critical Care Time Critical Care Time: Yes Total Critical Care Time: 35 Attestation: Critical care time 35 minutes managing patient's acute mental status change. Attestation Statement - Attestation Attestation: Patient was seen with resident physician. I reviewed the history, physical, assessment and plan, and agree with the findings. I also personally evaluated this patient and had [id number] time with this patient. This patient was actually seen in cooperation with the PA. I was notified that the patient would require an attending physician to see her approximately 30 minutes after arriving at my shift, which was 3 hours after the arrival of the patient to the ED. Patient was originally seen for pain in the knee. She had taken a Percocet approximately 45 minutes prior to arrival. Orthopedics had been consulted who recommended keeping her knee cast on this is on the right lower extremity. And disposition to home. However approximately 3 hours and 30 minutes after her arrival she had acute change in mental status. She was slurring her speech and had some confusion. This prompted a stroke alert, as well as my involvement in the case. She was also given Narcan which initially had only minimal improvement in symptoms. On examination vital signs are stable. ENT is unremarkable. Cranial nerves are intact. Patient does sound slurred, but no focal deficits, and follows commands. Heart is regular rhythm and rate. Lungs are clear. I am is soft and nontender. Extremities unremarkable with good range of motion and strength. She does have a cast on the right lower extremity. Distal pulses are intact. Skin shows no obvious rashes. ED course initial thought was this is related to the medication she apparently has some sensitivity to narcotics however with the sudden onset we did do a stroke protocol. Neurology agreed ultimately that they thought it could be that, but with her age they recommended the following. Head and neck CT with IV contrast and observation admission to ensure this is not a neurologic problem. It should also be noted that intermittent dosing of Narcan resolve the symptoms pretty aggressively. I think that this is likely a medication-related issue, I do understand the request by neurology for admission. We will discuss case with the hospitalist service and arrange for hospitalization. I agree with resident physician assessment and plan. Critical care time 35 minutes.
[2017-09-23] MEDS ORDERED: Naloxone 0.4 MG/ML INJ ONE ×2 (12:17→12:22)
[2017-09-23 12:53] LABS: Basophils % 0.5 %; Eosinophils # 0.2 K/mcL (0.0-0.6); Hematocrit 33.3 % (35.3-44.9); Hemoglobin 11.1 g/dL (11.5-15.4); Immature Granulocytes % 0.5 % (0-4); Lymphocytes # 0.9 K/mcL (0.6-4.6); Lymphocytes % 16.3 %; Mean Corpuscular HGB Conc 33.3 g/dL (31.6-35.5); Mean Platelet Volume 11.3 fL (9.4-12.4); Monocytes # 0.4 K/mcL (0.0-1.3); Monocytes % 7.1 %; Neutrophils # 4.1 K/mcL (1.6-8.9); Platelet Count 133 K/mcL (140-400); Red Cell Distribution Width 14.8 % (11.5-14.5); Segmented Neutrophils % 71.6 %
[2017-09-23 13:10] LABS: BUN/Creatinine Ratio 14 (6-26); Blood Urea Nitrogen 13 mg/dL (6-20); Calcium 9.3 mg/dL (8.6-10.3); Carbon Dioxide 31 mEq/L (23-29); Chloride 100 mEq/L (98-107); Glucose 91 mg/dL (70-105); Osmolality,Calculated 280 (280-300); Potassium 3.6 mEq/L (3.5-5.1); Sodium 135 mEq/L (136-145); eGFR For African Americans > 60 (> 60); eGFR For Non-African Americans > 60 (> 60)
[2017-09-23 13:53] LABS: Activated Partial Thrombo Time 31.5 Seconds (26.0-36.0)
[2017-09-23 14:10] LABS: Amphetamine Screen,Urine Negative ng/mL (Cutoff=1000); Barbiturate Screen,Urine Negative ng/mL (Cutoff=200); Benzodiazepines Screen,Urine Positive ng/mL (Cutoff=200); Cannabinoid Screen,Urine Positive ng/mL (Cutoff = 50); Cocaine Screen,Urine Negative ng/mL (Cutoff= 300); Opiate Screen,Urine Positive ng/mL (Cutoff=300); Phencyclidine Screen,Urine Negative ng/mL (Cutoff=25)
--- NOTE | 2017-09-23 15:09 | Internal Med History&Physical ---
Date of Encounter: 09/23/17 Time of Encounter: 15:07 Assessment and Plan (1) Multiple sclerosis Current visit: No Status: Chronic Chronic resume home medication (2) Altered mental status Current visit: Yes Status: Acute Acute patient. Drug screen positive for opiates and benzodiazepine and marijuana patient is very somnolent observe and hold some of her home narcotics and benzo Qualifiers: Altered mental status type: disorientation Qualified Code(s): R41.0 - Disorientation, unspecified (3) Polypharmacy Current visit: No Status: Acute Long-term polypharmacy and polysubstance abuse (4) Medication overdose Current visit: No Status: Acute Patient appeared to be overdose and not responding adequately to Narcan Qualifiers: Encounter type: initial encounter Injury intent: accidental or unintentional Qualified Code(s): T50.901A - Poisoning by unspecified drugs, medicaments and biological substances, accidental (unintentional), initial encounter (5) Schizophrenia Current visit: No Status: Chronic Chronic Qualifiers: Schizophrenia type: unspecified Qualified Code(s): F20.9 - Schizophrenia, unspecified (6) Morbid obesity Current visit: No Status: Chronic Chronic (7) Cast discomfort Current visit: Yes Status: Acute Case was discussed with by emergency room physician Internal Medicine - H&P: HPI Chief complaint: cast pain Admitted From: Emergency Dept Plans for Post Hospital Care: Home History of present illness: Ms. Copeland is a 57 year old female Patient with history of bipolar disorder, schizophrenia, anxiety, multiple sclerosis, morbid obesity, high cholesterol, recent admission for medication overdose and and encephalopathy patient had franca reduction by Dr. flores patient comes into the emergency room said that the cast was slipping and causing ankle pain s she called Dr. flores office and was adviced to go to emergency room for evaluation she took some Percocet on her way to emergency room patient was having some slurred speech and drowsy and in ER difficult to arouse she was given several doses of Narcan patient continued to be drowsy stroke alert was called patient was with her [facility] and via teleconference CTA of the neck CTA of the brain was negative CT of the head was also negative patient will be admitted for observation when I saw her she is still drowsy. She will wake up answers questions and falls back asleep she will be admitted for observation overnight and continue neuro check ordered ABG which is pending. Past Med Surg Social Fam HX - Past Medical History Medical history: cancer, CHF, hyperlipidemia, thyroid disease, other Psychiatric history: anxiety, depression - Past Surgical History Surgical History: other, appendectomy - Social History Smoking Status: Current every day smoker Smokeless Tobacco Status: No Alcohol use: none Drug use: marijuana - Family History Father Living Status: Hx Family Cardiac Disorders: Yes Hx Family Respiratory Disorders: Yes Mother Living Status: Still Living Internal Medicine - H&P: Meds Atorvastatin [Lipitor] 40 mg PO HS 04/10/15 [History] Sertraline [Zoloft] 100 mg PO DAILY 04/10/15 [History] Levothyroxine [Synthroid] 112 mcg PO QAM 09/01/16 [History] Potassium Chloride [Klor-Con 10] 20 meq PO BID 09/01/16 [History] Mirabegron [Myrbetriq] 50 mg PO DAILY 06/29/17 [History] ALPRAZolam [Xanax 1 MG Tablet] 1 mg PO BID 07/14/17 [History] Furosemide [Lasix] 40 mg PO DAILY #30 07/17/17 [Rx] Pantoprazole Sodium [Protonix] 40 mg PO BID #60 tablet. 07/17/17 [Rx] BuPROPion SR (12 HR) [Wellbutrin SR] 150 mg PO BID 07/26/17 [History] Ipratropium/Albuterol Neb [Duoneb] 3 ml IH Q6HR PRN 07/26/17 [History] Gabapentin [Neurontin] 300 mg PO TID #45 capsule 07/29/17 [Rx] Oxybutynin [Ditropan] 5 mg PO DAILY #30 tablet 08/16/17 [Rx] Amitriptyline [Elavil] 25 mg PO HS 09/19/17 [History] Buspirone HCl [Buspar] 10 mg PO BID PRN 09/19/17 [History] Famotidine [Heartburn Prevention] 20 mg PO DAILY 09/19/17 [History] Fluticasone Propionate [Flovent Hfa] 1 puff IH AD 09/19/17 [History] Ibuprofen [Motrin] 600 mg PO BID 09/19/17 [History] Meloxicam [Mobic] 15 mg PO DAILY 09/19/17 [History] Nystatin POWDER [Nystop] 1 appl TP AD 09/19/17 [History] OxyCODONE/APAP 5/325 [Percocet 5/325 MG] 1 tab PO QID PRN 09/19/17 [History] Promethazine [Phenergan] 25 mg PO Q8HR 09/19/17 [History] Quetiapine Fumarate [Seroquel] 50 mg PO DAILY 09/19/17 [History] Baclofen 20 mg PO BID 09/23/17 [History] Diphenoxylate/Atropine [Lomotil 2.5 mg/0.025 mg] 1 tab PO QID PRN 09/23/17 [ History] Melatonin/Pyridoxine HCl (B6) [Melatonin 5 mg Tablet] 5 mg PO HS PRN 09/23/17 [ History] 3 Allergy/AdvReac Type Severity Reaction Status Date / Time No Known Allergies Allergy Verified 08/22/17 16:11 ROS unobtainable: due to mental status All Systems PM: A 10-system review of systems was performed and is negative for pertinent findings except as documented above in the HPI. - Constitutional Vitals: Temp Pulse Resp BP Pulse Ox 97.5 F L 65 16 93/66 96 09/23/17 09:16 09/23/17 14:41 09/23/17 14:41 09/23/17 14:41 09/23/17 14:41 General appearance: Present: morbidly obese - Eye Eye exam: Present: PERRL, conjuntiva pink, sclera anicteric Pupils: Present: PERRL - Respiratory Respiratory exam: Present: CTAB. Absent: accessory muscle use, rales, rhonchi, wheezes - Cardiovascular Cardiovascular exam: Present: RRR, +S1, +S2. Absent: diastolic murmur, gallop, rubs, systolic murmur - GI/Abdominal GI/Abdominal exam: Present: normal bowel sounds, soft, no peritoneal signs. Absent: distended, tenderness - Extremities Exam Extremities exam: Present: warm, radial pulses palpable and symmetrical. Absent : calf tenderness, cyanotic, pedal edema Internal Med - H&P Results - Labs CBC & Chem 7: 09/23/17 12:47 09/23/17 12:47
[2017-09-23 15:17] LABS: ABG Base Excess 7 mEq/L (-2 to 3); ABG HCO3 31 mEq/L (21-27); ABG Oxygen Saturation 94 % (95-98); ABG PCO2 45 mmHg (35-45); ABG PH 7.45 pH Units (7.32-7.45); ABG PO2 70 mmHg (85-104); ABG TCO2 33 mEq/L (20-26)
[2017-09-23] MEDS ORDERED: Naloxone 0.4 MG/ML INJ IVP PRN (15:21)
[2017-09-23] MEDS ORDERED: Ipratropium/Albuterol Neb 3 ML IH PRN (15:24)
[2017-09-23] MEDS ORDERED: Diphenoxylate/Atropine 1 TAB TABLET PO PRN (15:24)
[2017-09-23] MEDS: 0.9 % Sodium Chloride 1,000 ML IVC SCH (16:19)
[2017-09-23] MEDS: Nystatin POWDER 30 GM BOTTLE TP SCH (19:54)
[2017-09-23] MEDS: Baclofen 10 MG TABLET PO SCH (19:56)
[2017-09-23] MEDS: Beclomethasone 80mcg MDI IH SCH (22:48)
[2017-09-23] MEDS ORDERED: Acetaminophen 325 MG TABLET PO PRN (23:39)
[2017-09-24 08:22] LABS: BUN/Creatinine Ratio 13 (6-26); Blood Urea Nitrogen 10 mg/dL (6-20); Calcium 9.2 mg/dL (8.6-10.3); Carbon Dioxide 28 mEq/L (23-29); Chloride 106 mEq/L (98-107); Glucose 97 mg/dL (70-105); Magnesium 1.9 mg/dL (1.6-2.6); Osmolality,Calculated 289 (280-300); Potassium 3.6 mEq/L (3.5-5.1); Sodium 140 mEq/L (136-145); eGFR For African Americans > 60 (> 60); eGFR For Non-African Americans > 60 (> 60)
[2017-09-24] MEDS: Baclofen 10 MG TABLET PO SCH ×2 (09:01→20:00)
[2017-09-24] MEDS: Famotidine 20 MG TABLET PO SCH (09:02)
[2017-09-24] MEDS: Nystatin POWDER 30 GM BOTTLE TP SCH ×2 (09:04→20:00)
[2017-09-24] MEDS: Beclomethasone 80mcg MDI IH SCH ×2 (10:43→19:59)
--- NOTE | 2017-09-24 14:07 | Internal Med Progress Note ---
Date of Encounter: 09/24/17 Time of Encounter: 11:15 - Assessment and plan (1) Altered mental status Current Visit: Yes Status: Acute Assessment and plan: There what patient's baseline is at this time. Patient with history of schizophrenia and polypharmacy. Patient presents with positive drug screen for opiates, benzodiazepines, and marijuana. This morning patient was alert, oriented to name only, and appeared unable to answer questions appropriately. Primarily, she repeated the questions that I had asked back to her and answered in childlike, one-word answers. She is able to follow commands. Opiates and benzodiazepines have been held. Head CT negative for any acute intracranial abnormality. CTA neck showed patent head and neck arteries. Labs are stable and within normal limits. Continue to monitor patient condition. Monitor labs and vital signs. Qualifiers: Altered mental status type: disorientation Qualified Code(s): R41.0 - Disorientation, unspecified (2) Cast discomfort Current Visit: Yes Status: Acute Assessment and plan: Patient had right knee surgery by Dr. Luong in the recent past and is still wearing a cast. Originally, she reported discomfort to right ankle as cast was slipping causing pain. Orthopedic office to patient to present to the emergency room for evaluation, ER physician spoke with orthopedic surgeon about the cast. Today, patient was unaware that she was even wearing a cast despite the fact that she was able to see the cast. I did not note any open areas to ankle or dorsal foot from the cast. We will wait on orders recommendations from orthopedics. (3) DVT prophylaxis Current Visit: Yes Status: Acute Assessment and plan: Heparin subcutaneous twice a day. (4) Overdose Current Visit: No Status: Acute Assessment and plan: Patient appears to be overdosed on medication and was not responding to Narcan. Patient unable to answer questions appropriately. Will discuss medications with patient and boyfriend tomorrow. Qualifiers: Encounter type: subsequent encounter Injury intent: accidental or unintentional Qualified Code(s): T50.901D - Poisoning by unspecified drugs, medicaments and biological substances, accidental (unintentional), subsequent encounter (5) Polypharmacy Current Visit: Yes Status: Chronic Assessment and plan: Long-term polypharmacy and polysubstance abuse. (6) Morbid obesity with BMI of 40.0-44.9, adult Current Visit: Yes Status: Chronic Assessment and plan: Chronic. Continue to encourage lifestyle modifications (7) Multiple sclerosis Current Visit: Yes Status: Chronic Assessment and plan: Chronic. Monitor pt for safety. Continue home medications and follow up outpatient. (8) Schizophrenia Current Visit: Yes Status: Chronic Assessment and plan: Chroinc. Continue home medications when stable . Qualifiers: Schizophrenia type: unspecified Qualified Code(s): F20.9 - Schizophrenia, unspecified - Time Spent With Patient less than 15 minutes - Subjective Interval history: Pt was seen and assesed at bedside at 1110 a.m. Unclear of what her usual baseline mentation is, but pt is difficult to assess. She does not answer questions appropriately and often repeats the questions that I ask back to me. She denies headache, n/v, chest pain, abdominal pain, or dizziness. Per admission note, pt had been complaining of RLE pain from cast, pt denies even having a cast on despite it being visible to her. - Constitutional Vitals: Temp Pulse Resp BP Pulse Ox 97.8 F 78 16 136/84 96 09/24/17 06:00 09/24/17 06:00 09/24/17 10:46 09/24/17 06:00 09/24/17 10:46 General appearance: Present: cooperative, A&O X 1, morbidly obese. Absent: answers questions appropriately - Head Head exam: Present: atraumatic, normal inspection, normocephalic - Eye Eye exam: Present: normal appearance, conjuntiva pink, sclera anicteric - Neck Neck exam general surgery: Present: normal inspection, supple, trachea midline. Absent: lymphadenopathy, tenderness - Respiratory Respiratory exam: Present: CTAB. Absent: accessory muscle use, chest wall tenderness, rales, respiratory distress, rhonchi, wheezes - Cardiovascular Cardiovascular exam: Present: RRR, +S1, +S2. Absent: diastolic murmur, gallop, rubs, systolic murmur - GI/Abdominal GI/Abdominal exam: Present: normal bowel sounds, soft. Absent: distended, hepatomegaly, tenderness - Extremities Exam Extremities exam: Present: normal capillary refill, normal inspection, warm, radial pulses palpable and symmetrical. Absent: calf tenderness, cyanotic, pedal edema, tenderness - Neurological Exam Neurological exam: Present: alert, altered, no focal deficits. Absent: oriented X3, facial droop, speech deficit - Skin Skin exam: Present: dry, intact, normal color, warm. Absent: rash Internal Medicine: Result - Labs CBC & Chem 7: 09/23/17 12:47 09/24/17 07:56 Labs: BMP 09/24/17 07:56 Sodium 140 Potassium 3.6 Chloride 106 Carbon Dioxide 28 BUN 10 Creatinine 0.78 Glucose 97 Calcium 9.2 - ABG Interpretation ABG results: ABG ABG pH 7.45 pH Units (7.32-7.45) 09/23/17 14:59 ABG pCO2 45 mmHg (35-45) 09/23/17 14:59 ABG pO2 70 mmHg (85-104) L 09/23/17 14:59 ABG O2 Saturation 94 % (95-98) L 09/23/17 14:59 PT/INR, D-dimer PT 11.0 Seconds (9.4-12.1) 09/23/17 13:26 Consult Discharge Plan - Plan Referrals: Johnie Farley MD [Primary Care Provider] -
[2017-09-24] MEDS: 0.9 % Sodium Chloride 1,000 ML IVC SCH (17:36)
[2017-09-24] MEDS: *HR* Heparin 5,000 UNIT/ML VIAL SQ SCH (17:37)
[2017-09-25 03:34] LABS: Bilirubin,Urine Negative (Negative); Blood,Urine Moderate (Negative); Clarity,Urine Turbid (Clear); Color,Urine Dark Yellow (Yellow); Glucose,Urine (UA) Normal (Normal); Ketones,Urine Trace mg/dL (Negative); Leukocyte Esterase,Urine Large (Negative); Nitrite,Urine Positive (Negative); Protein,Urine 100 mg/dL (Neg-Trace); Specific Gravity,Urine 1.026 (1.010-1.025); Urobilinogen,Urine Normal (Normal)
[2017-09-25 03:36] LABS: Bacteria,Urine Many per hpf (None-Few); Hyaline Casts,Urine Few per lpf (None-Few); RBC,Urine 50-100 per hpf (0-3); Squamous Epithelial Cell,Urine Many per lpf (None-Few); WBC,Urine TNTC per hpf (0-3)
[2017-09-25] MEDS: *HR* Heparin 5,000 UNIT/ML VIAL SQ SCH ×2 (05:20→16:18)
[2017-09-25 05:53] LABS: Bilirubin,Urine Negative (Negative); Blood,Urine Small (Negative); Clarity,Urine Cloudy (Clear); Color,Urine Yellow (Yellow); Glucose,Urine (UA) Normal (Normal); Ketones,Urine Trace mg/dL (Negative); Leukocyte Esterase,Urine Moderate (Negative); Nitrite,Urine Positive (Negative); Protein,Urine 30 mg/dL (Neg-Trace); Specific Gravity,Urine 1.024 (1.010-1.025); Urobilinogen,Urine Normal (Normal)
[2017-09-25 05:57] LABS: Bacteria,Urine Many per hpf (None-Few); Hyaline Casts,Urine None Seen per lpf (None-Few); RBC,Urine 15-30 per hpf (0-3); Squamous Epithelial Cell,Urine Moderate per lpf (None-Few); WBC,Urine TNTC per hpf (0-3)
[2017-09-25] MEDS: Beclomethasone 80mcg MDI IH SCH ×2 (07:58→21:37)
[2017-09-25] MEDS: Baclofen 10 MG TABLET PO SCH ×2 (08:33→21:12)
[2017-09-25] MEDS: Famotidine 20 MG TABLET PO SCH (08:34)
[2017-09-25] MEDS: Nystatin POWDER 30 GM BOTTLE TP SCH ×2 (08:34→21:12)
--- NOTE | 2017-09-25 11:37 | Orthopedic Consult Note ---
Date of Encounter: 09/25/17 Time of Encounter: 10:45 Assessment and Plan (1) Right leg pain Current Visit: Yes Status: Acute Case discussed with Dr. Luong Cast being removed TROM locked extension brace WBAT - NO KNEE MOTION of right knee. No surgical intervention planned at this time secondary to patient's other health conditions and non-life threatening nature of the right leg. Continue care per primary team. Keep follow up as outpatient upon discharge. (2) History of reduction of closed dislocation Current Visit: Yes Status: Acute Of Right knee History of Present Illness Chief complaint: Right leg pain s/p closed reduction right knee HPI: Ms. Copeland is a 57 year old female that underwent closed reduction of chronic right knee dislocation by Dr. Luong on 09/18/17 and was subsequently casted in place. Patient was discharged home with home health services in good condition on 09/20/17 and instructed to follow up as outpatient the following week. Patient presented to ED on 09/23/17 per report because our office recommended she proceed for evaluation of her cast which per record was causing her pain. In speaking with her today, she admits to pulling cast padding out of cast. She was then subsequently admitted secondary to altered mental status. On exam, she is alert sitting in bed. She is oriented to person only. Right leg is in knee flexed appx 30 degree position while in cast which is a significant change from last exam performed by this provider last week. Right foot and ankle motion is intact. Right hip motion intact. Neurovascularly intact to RLE. Plan: Case discussed with Dr. Luong Cast being removed TROM locked extension brace WBAT - NO KNEE MOTION of right knee. No surgical intervention planned at this time secondary to patient's other health conditions and non-life threatening nature of the right leg. Continue care per primary team. Keep follow up as outpatient upon discharge. Past Med Surg Social Fam HX - Past Medical History Medical history: cancer, CHF, hyperlipidemia, thyroid disease, other Psychiatric history: anxiety, depression - Past Surgical History Surgical History: other, appendectomy - Social History Smoking Status: Current every day smoker Smokeless Tobacco Status: No Alcohol use: none Drug use: marijuana - Family History Father Living Status: Hx Family Cardiac Disorders: Yes Hx Family Respiratory Disorders: Yes Mother Living Status: Still Living Medications and Allergies Atorvastatin [Lipitor] 40 mg PO HS 04/10/15 [History] Sertraline [Zoloft] 100 mg PO DAILY 04/10/15 [History] Levothyroxine [Synthroid] 112 mcg PO QAM 09/01/16 [History] Potassium Chloride [Klor-Con 10] 20 meq PO BID 09/01/16 [History] Mirabegron [Myrbetriq] 50 mg PO DAILY 06/29/17 [History] ALPRAZolam [Xanax 1 MG Tablet] 1 mg PO BID PRN 07/14/17 [History] Furosemide [Lasix] 40 mg PO DAILY #30 07/17/17 [Rx] Pantoprazole Sodium [Protonix] 40 mg PO BID #60 tablet. 07/17/17 [Rx] BuPROPion SR (12 HR) [Wellbutrin SR] 150 mg PO BID 07/26/17 [History] Ipratropium/Albuterol Neb [Duoneb] 3 ml IH Q6HR PRN 07/26/17 [History] Gabapentin [Neurontin] 300 mg PO TID #45 capsule 07/29/17 [Rx] Oxybutynin [Ditropan] 5 mg PO DAILY #30 tablet 08/16/17 [Rx] Amitriptyline [Elavil] 25 mg PO HS 09/19/17 [History] Buspirone HCl [Buspar] 10 mg PO BID 09/19/17 [History] Famotidine [Heartburn Prevention] 20 mg PO DAILY 09/19/17 [History] Fluticasone Propionate [Flovent Hfa] 1 puff IH BID 09/19/17 [History] Ibuprofen [Motrin] 600 mg PO BID 09/19/17 [History] Meloxicam [Mobic] 15 mg PO DAILY 09/19/17 [History] Nystatin POWDER [Nystop] 1 appl TP BID 09/19/17 [History] OxyCODONE/APAP 5/325 [Percocet 5/325 MG] 1 tab PO QID PRN 09/19/17 [History] Promethazine [Phenergan] 25 mg PO Q8HR PRN 09/19/17 [History] Quetiapine Fumarate [Seroquel] 75 mg PO HS 09/19/17 [History] Baclofen 20 mg PO BID 09/23/17 [History] Diphenoxylate/Atropine [Lomotil 2.5 mg/0.025 mg] 1 tab PO QID PRN 09/23/17 [ History] Melatonin/Pyridoxine HCl (B6) [Melatonin 5 mg Tablet] 5 mg PO HS PRN 09/23/17 [ History] 3 Allergy/AdvReac Type Severity Reaction Status Date / Time No Known Allergies Allergy Verified 08/22/17 16:11 All Systems Reviewed: A 10-system review of systems was performed and is negative for pertinent findings except as documented above in the HPI. Physical Exam - Constitutional Vitals: Temp Pulse Resp BP Pulse Ox 97.5 F L 61 16 160/91 97 09/25/17 11:17 09/25/17 11:17 09/25/17 11:17 09/25/17 11:17 09/25/17 11:17 Results - Labs Result Diagrams: 09/23/17 12:47 09/24/17 07:56 Labs: Abnormal lab results RBC 3.70 M/mcL (3.82-4.97) L 09/23/17 12:47 Hgb 11.1 g/dL (11.5-15.4) L 09/23/17 12:47 Hct 33.3 % (35.3-44.9) L 09/23/17 12:47 RDW 14.8 % (11.5-14.5) H 09/23/17 12:47 Plt Count 133 K/mcL (140-400) L 09/23/17 12:47 ABG pO2 70 mmHg (85-104) L 09/23/17 14:59 ABG HCO3 31 mEq/L (21-27) H 09/23/17 14:59 ABG Total CO2 33 mEq/L (20-26) H 09/23/17 14:59 ABG O2 Saturation 94 % (95-98) L 09/23/17 14:59 ABG Base Excess 7 mEq/L (-2 to 3) H 09/23/17 14:59 POC Glucose 100 (58-89) H 09/23/17 16:39 Urine Clarity Cloudy (Clear) A 09/25/17 05:30 Urine Protein 30 mg/dL (Neg-Trace) H 09/25/17 05:30 Urine Ketones Trace mg/dL (Negative) H 09/25/17 05:30 Urine Blood Small (Negative) H 09/25/17 05:30 Urine Nitrite Positive (Negative) A 09/25/17 05:30 Ur Leukocyte Esterase Moderate (Negative) H 09/25/17 05:30 Urine Microscopic RBC 15-30 per hpf (0-3) H 09/25/17 05:30 Urine Microscopic WBC TNTC per hpf (0-3) H 09/25/17 05:30 Ur Squamous Epith Cells Moderate per lpf (None-Few) H 09/25/17 05:30 Urine Bacteria Many per hpf (None-Few) H 09/25/17 05:30 Ur Culture Indicated? YES (NO) A 09/25/17 05:30 Urine Opiates Screen Positive ng/mL (Uccvsl=341) H 09/23/17 13:38 U Benzodiazepines Scrn Positive ng/mL (Cvcpxk=641) H 09/23/17 13:38 U Marijuana (THC) Screen Positive ng/mL (Cutoff = 50) H 09/23/17 13:38 All other labs normal. Consult Discharge Plan - Plan Referrals: Cesar Luong MD [Partnered Physician] - 09/26/17 8:00 am Johnie Farley MD [Primary Care Provider] -
--- NOTE | 2017-09-25 14:38 | Internal Med Progress Note ---
Date of Encounter: 09/25/17 Time of Encounter: 08:50 - Assessment and plan (1) Altered mental status Current Visit: Yes Status: Acute Assessment and plan: Patient with history of schizophrenia and polypharmacy, OD. Patient presents with positive drug screen for opiates, benzodiazepines, and marijuana. Pt's mentation seems to be a bit better today, she will answer questions, for the most part, correctly. According to ortho [facility] [employer], she is not at her baseline from when she saw her last week for surgery. Opiates and benzodiazepines have been held. Head CT negative for any acute intracranial abnormality. CTA neck showed patent head and neck arteries. Urine collected today was indicative of urinary tract infection. Patient has been started on Rocephin 1 g IV daily, cultures pending. Narrow antibiotics accordingly. Continue to monitor patient condition. Monitor labs and vital signs. Qualifiers: Altered mental status type: disorientation Qualified Code(s): R41.0 - Disorientation, unspecified (2) Cast discomfort Current Visit: Yes Status: Acute Assessment and plan: Patient had right knee surgery by Dr. Luong last week and is still wearing a cast. Originally, she reported discomfort to right ankle as cast was slipping causing pain. I did not note any open areas to ankle or dorsal foot from the cast. Orthopedics evaluate patient today. Cast is now at a 30 degree angle, when patient was discharged there was no angle. Patient has admitted to pulling out cast padding. Cast will be removed and knee brace will be applied. Continue to monitor no weightbearing and watch incision for signs of infection. (3) DVT prophylaxis Current Visit: Yes Status: Acute Assessment and plan: Heparin subcutaneous twice a day. (4) Overdose Current Visit: No Status: Acute Assessment and plan: Patient appears to have taken too much medicaiton, as well as using marijuana, and was not responding to Narcan. Patient unable to answer questions appropriately. consulting services manager on board. She will speak with patient's primary care provider, Dr. Farley, and see if patient is able to have medications prepackaged to avoid another episode of overdose and incorrect use of medications. Qualifiers: Encounter type: subsequent encounter Injury intent: accidental or unintentional Qualified Code(s): T50.901D - Poisoning by unspecified drugs, medicaments and biological substances, accidental (unintentional), subsequent encounter (5) Polypharmacy Current Visit: Yes Status: Chronic Assessment and plan: Plan as above for OD. Urine drug screen positive for benzodiazepines, marijuana , and opiates. [facility] report reveals that she is prescribed Xanax, last filled in July, Vicodin 5/325mg for surgery last week, Gabapentin, and Diphenoxylate. Pt admits to smoking marijuana, as well. SW will discuss packaging medications at the pharmacy to avoid future unintentional overdoses. (6) Morbid obesity with BMI of 40.0-44.9, adult Current Visit: Yes Status: Chronic Assessment and plan: Chronic. Continue to encourage lifestyle modifications (7) Multiple sclerosis Current Visit: Yes Status: Chronic Assessment and plan: Chronic. Monitor pt for safety. Continue home medications and follow up with PCP after discharge. (8) Schizophrenia Current Visit: Yes Status: Chronic Assessment and plan: Chroinc. Continue home medications when stable . Qualifiers: Schizophrenia type: unspecified Qualified Code(s): F20.9 - Schizophrenia, unspecified (9) UTI (urinary tract infection) Current Visit: Yes Status: Acute Assessment and plan: Patient with altered mental status, could be secondary to urinary tract infection. Urine collected today is indicative of UTI. Culture is pending. Rocephin 1 g IV daily, adjust antibiotics with culture and sensitivity. Although hard to assess, patient denies any urinary symptoms and/or back pain. Qualifiers: Urinary tract infection type: acute cystitis Hematuria presence: with hematuria Qualified Code(s): N30.01 - Acute cystitis with hematuria - Time Spent With Patient less than 15 minutes - Subjective Interval history: Pt was seen and assesed at bedside at 0850 a.m. patient's mentation little bit better today than yesterday. She does seem to answer questions more appropriately, however she does answer questions incorrectly. She reports that it is the spoon month and stent of September. She also has began yelling out about pain in her leg. She denies headache, n/v, chest pain, abdominal pain, or dizziness. - Constitutional Vitals: Temp Pulse Resp BP Pulse Ox 97.5 F L 61 16 160/91 97 09/25/17 11:17 09/25/17 11:17 09/25/17 11:17 09/25/17 11:17 09/25/17 11:17 General appearance: Present: cooperative, A&O X 1, morbidly obese, pleasant, no acute distress. Absent: answers questions appropriately - Head Head exam: Present: atraumatic, normal inspection, normocephalic - Eye Eye exam: Present: normal appearance, conjuntiva pink, sclera anicteric - Neck Neck exam general surgery: Present: normal inspection, supple, trachea midline. Absent: lymphadenopathy, tenderness - Respiratory Respiratory exam: Present: CTAB. Absent: accessory muscle use, chest wall tenderness, decreased breath sounds, rales, respiratory distress, rhonchi, wheezes - Cardiovascular Cardiovascular exam: Present: RRR, +S1, +S2. Absent: diastolic murmur, gallop, rubs, systolic murmur - GI/Abdominal GI/Abdominal exam: Present: normal bowel sounds, soft. Absent: distended, hepatomegaly, tenderness - Extremities Exam Extremities exam: Present: normal capillary refill, warm, radial pulses palpable and symmetrical. Absent: calf tenderness, cyanotic, pedal edema, tenderness - Neurological Exam Neurological exam: Present: alert, altered. Absent: oriented X3, facial droop, speech deficit - Skin Skin exam: Present: dry, intact, normal color, warm. Absent: rash Internal Medicine: Result - Labs CBC & Chem 7: 09/23/17 12:47 09/24/17 07:56 Labs: Urine 09/25/17 09/25/17 Range/Units 03:28 05:30 Urine Color Dark Yellow Yellow (Yellow) Urine Clarity Turbid A Cloudy A (Clear) Urine pH 7.0 8.0 (5.0-8.0) pH Units Ur Specific [place] 1.026 H 1.024 (1.010-1.025) Urine Protein 100 H 30 H (Neg-Trace) mg/dL Urine Glucose (UA) Normal Normal (Normal) mg/dL - ABG Interpretation ABG results: ABG ABG pH 7.45 pH Units (7.32-7.45) 09/23/17 14:59 ABG pCO2 45 mmHg (35-45) 09/23/17 14:59 ABG pO2 70 mmHg (85-104) L 09/23/17 14:59 ABG O2 Saturation 94 % (95-98) L 09/23/17 14:59 PT/INR, D-dimer PT 11.0 Seconds (9.4-12.1) 09/23/17 13:26 Consult Discharge Plan - Plan Referrals: Cesar Luong MD [Partnered Physician] - 09/26/17 8:00 am Johnie Farley MD [Primary Care Provider] -
[2017-09-25] MEDS: cefTRIAXone 1,000 MG in Water for inj. (sterile) 20 ML 10 ML IVP SCH (16:08)
[2017-09-26 05:29] LABS: Basophils % 0.4 %; Eosinophils # 0.1 K/mcL (0.0-0.6); Eosinophils % 2.5 %; Hematocrit 33.6 % (35.3-44.9); Hemoglobin 11.1 g/dL (11.5-15.4); Immature Granulocytes % 0.5 % (0-4); Lymphocytes # 0.9 K/mcL (0.6-4.6); Lymphocytes % 15.7 %; Mean Corpuscular Hemoglobin 30.2 pg (28.0-33.3); Mean Corpuscular Volume 91.3 fL (83.0-100.0); Mean Platelet Volume 11.5 fL (9.4-12.4); Monocytes # 0.4 K/mcL (0.0-1.3); Monocytes % 7.8 %; Neutrophils # 4.2 K/mcL (1.6-8.9); Platelet Count 152 K/mcL (140-400); Red Blood Count 3.68 M/mcL (3.82-4.97); Red Cell Distribution Width 14.7 % (11.5-14.5); Segmented Neutrophils % 73.1 %
[2017-09-26] MEDS: *HR* Heparin 5,000 UNIT/ML VIAL SQ SCH ×2 (05:44→17:57)
[2017-09-26] MEDS: Beclomethasone 80mcg MDI IH SCH ×2 (08:01→21:08)
[2017-09-26] MEDS: cefTRIAXone 1,000 MG in Water for inj. (sterile) 20 ML 10 ML IVP SCH (08:34)
[2017-09-26] MEDS: Baclofen 10 MG TABLET PO SCH ×2 (08:35→20:47)
[2017-09-26] MEDS: Gabapentin 300 MG CAPSULE PO SCH ×3 (08:35→20:47)
[2017-09-26] MEDS: Famotidine 20 MG TABLET PO SCH (08:35)
[2017-09-26] MEDS: Nystatin POWDER 30 GM BOTTLE TP SCH ×2 (08:36→20:47)
--- NOTE | 2017-09-26 16:42 | Internal Med Progress Note ---
Date of Encounter: 09/26/17 Time of Encounter: 16:35 - Assessment and plan (1) Altered mental status Current Visit: Yes Status: Acute Assessment and plan: Patient with history of schizophrenia and polypharmacy, OD. Patient presents with positive drug screen for opiates, benzodiazepines, and marijuana. Pt's mentation appears at her baseline, she will answer questions correctly. Opiates and benzoate have been held Head CT negative for any acute intracranial abnormality. CTA neck showed patent head and neck arteries. Urine collected today was indicative of urinary tract infection. Patient has been started on Rocephin 1 g IV daily, cultures pending and narrow antibiotics accordingly. Continue to monitor patient condition. Monitor labs and vital signs. Qualifiers: Altered mental status type: disorientation Qualified Code(s): R41.0 - Disorientation, unspecified (2) Cast discomfort Current Visit: Yes Status: Acute Assessment and plan: Patient had right knee surgery by Dr. Luong last week and was still wearing a cast. Originally, she reported discomfort to right ankle as cast was slipping causing pain. Orthopedics evaluated patient, the cast was removed and knee brace was applied. Continue to monitor, watch incision for signs of infection. TROM locked extension brace WBAT - NO KNEE MOTION of right knee. No surgical intervention planned at this time secondary to patient's other health conditions and non-life threatening nature of the right leg. Keep ortho follow up as outpatient upon discharge. (3) DVT prophylaxis Current Visit: Yes Status: Acute Assessment and plan: Heparin subcutaneous twice a day. (4) History of reduction of closed dislocation Current Visit: Yes Status: Acute Assessment and plan: TROM locked extension brace WBAT - NO KNEE MOTION of right knee. No surgical intervention planned at this time secondary to patient's other health conditions and non-life threatening nature of the right leg. Keep follow up as outpatient upon discharge. (5) Morbid obesity with BMI of 40.0-44.9, adult Current Visit: Yes Status: Chronic Assessment and plan: Chronic - Continue to encourage lifestyle modifications (6) Multiple sclerosis Current Visit: No Status: Chronic Assessment and plan: chronic condition (7) Overdose Current Visit: No Status: Acute Assessment and plan: . Urine drug screen positive for benzodiazepines, marijuana, and opiates. [facility] report reveals that she is prescribed Xanax, last filled in July, Vicodin 5/ 325mg for surgery last week, Gabapentin, and Diphenoxylate. Pt admits to smoking marijuana, as well. SW will discuss packaging medications at the pharmacy to avoid future unintentional overdoses. Qualifiers: Encounter type: initial encounter Injury intent: accidental or unintentional Qualified Code(s): T50.901A - Poisoning by unspecified drugs, medicaments and biological substances, accidental (unintentional), initial encounter (8) Polypharmacy Current Visit: Yes Status: Chronic Assessment and plan: Plan as above for OD, Urine drug screen positive for benzodiazepines, marijuana , and opiates. [facility] report reveals that she is prescribed Xanax, last filled in July, Vicodin 5/325mg for surgery last week, Gabapentin, and Diphenoxylate. Pt admits to smoking marijuana, as well. SW will discuss packaging medications at the pharmacy to avoid future unintentional overdoses. (9) Schizophrenia Current Visit: Yes Status: Chronic Assessment and plan: Chroinc - Continue home medications when stable . Qualifiers: Schizophrenia type: unspecified Qualified Code(s): F20.9 - Schizophrenia, unspecified (10) UTI (urinary tract infection) Current Visit: Yes Status: Acute Assessment and plan: Patient with altered mental status, maybe secondary to urinary tract infection. Urine collected today is indicative of UTI. Final Culture is pending. Rocephin 1 g IV daily, adjust antibiotics with culture and sensitivity. Patient denies any urinary symptoms and/or back pain. Qualifiers: Urinary tract infection type: acute cystitis Hematuria presence: with hematuria Qualified Code(s): N30.01 - Acute cystitis with hematuria - Subjective Interval history: Patient denies chest pain, shortness of breath, fever, chills, headache or urinary symptoms. She is fixated on "incontinence and pooping the bed". - Constitutional Vitals: Temp Pulse Resp BP Pulse Ox 98.9 F 85 16 144/89 95 09/26/17 15:50 09/26/17 15:50 09/26/17 15:50 09/26/17 15:50 09/26/17 15:50 General appearance: Present: cooperative, A&O X 1, morbidly obese, pleasant, no acute distress. Absent: answers questions appropriately - Head Head exam: Present: atraumatic, normocephalic - Eye Eye exam: Present: PERRL, conjuntiva pink, sclera anicteric Pupils: Present: PERRL - Neck Neck exam general surgery: Present: supple, trachea midline. Absent: lymphadenopathy - Respiratory Respiratory exam: Present: CTAB. Absent: accessory muscle use, rales, rhonchi, wheezes - Cardiovascular Cardiovascular exam: Present: RRR, +S1, +S2. Absent: diastolic murmur, gallop, rubs, systolic murmur - GI/Abdominal GI/Abdominal exam: Present: normal bowel sounds, soft, no peritoneal signs. Absent: distended, tenderness - Extremities Exam Extremities exam: Present: warm, radial pulses palpable and symmetrical. Absent : calf tenderness, cyanotic, pedal edema Additional comments: Right knee immobilizer in place CMS checks intact - Neurological Exam Neurological exam: Present: CN II-XII intact, oriented X3, no focal deficits. Absent: pronater drift, facial droop, speech deficit - Skin Skin exam: Present: dry, intact Internal Medicine: Result - Labs CBC & Chem 7: 09/26/17 03:45 09/24/17 07:56 Labs: Short CBC 09/26/17 Range/Units 03:45 WBC 5.7 (4.3-11.1) K/mcL Hgb 11.1 L (11.5-15.4) g/dL Hct 33.6 L (35.3-44.9) % Plt Count 152 (140-400) K/mcL Neutrophils # 4.2 (1.6-8.9) K/mcL Urine 09/25/17 Range/Units 05:30 Urine Color Yellow (Yellow) Urine Clarity Cloudy A (Clear) Urine pH 8.0 (5.0-8.0) pH Units Ur Specific [place] 1.024 (1.010-1.025) Urine Protein 30 H (Neg-Trace) mg/dL Urine Glucose (UA) Normal (Normal) mg/dL - ABG Interpretation ABG results: ABG ABG pH 7.45 pH Units (7.32-7.45) 09/23/17 14:59 ABG pCO2 45 mmHg (35-45) 09/23/17 14:59 ABG pO2 70 mmHg (85-104) L 09/23/17 14:59 ABG O2 Saturation 94 % (95-98) L 09/23/17 14:59 PT/INR, D-dimer PT 11.0 Seconds (9.4-12.1) 09/23/17 13:26 Consult Discharge Plan - Plan Referrals: Cesar Luong MD [Partnered Physician] - 10/03/17 9:20 am Johnie Farley MD [Primary Care Provider] - 10/04/17 1:15 pm
[2017-09-26] MEDS ORDERED: Melatonin 3 MG TABLET PO PRN (23:04)
[2017-09-26] MEDS: Nicotine 14 MG PATCH.TD24 TD SCH (23:35)
[2017-09-27] MEDS: *HR* Heparin 5,000 UNIT/ML VIAL SQ SCH (05:48)
[2017-09-27 06:34] VITALS: BP 145/88
[2017-09-27] MEDS: Beclomethasone 80mcg MDI IH SCH (07:45)
[2017-09-27] MEDS: Gabapentin 300 MG CAPSULE PO SCH ×2 (09:39→14:02)
[2017-09-27] MEDS: Baclofen 10 MG TABLET PO SCH (09:39)
[2017-09-27] MEDS: Famotidine 20 MG TABLET PO SCH (09:39)
[2017-09-27] MEDS: cefTRIAXone 1,000 MG in Water for inj. (sterile) 20 ML 10 ML IVP SCH (09:39)
[2017-09-27] MEDS: Nicotine 14 MG PATCH.TD24 TD SCH (09:41)
[2017-09-27] MEDS: Nystatin POWDER 30 GM BOTTLE TP SCH (09:42)
--- NOTE | 2017-09-27 13:32 | Discharge Summary ---
Date of Encounter: 09/27/17 Time of Encounter: 13:31 - Discharge Diagnosis (1) Altered mental status Priority: Primary Status: Acute Comments: Patient with history of schizophrenia and polypharmacy, OD. Patient presents with positive drug screen for opiates, benzodiazepines, and marijuana. According to [facility] it was recommended she go for drug rehabilitation but patient declined for them and she again declined for us to help her with this. She wants to go home. He will follow up at her medical and psychiatric clinics as an outpatient as scheduled Pt's mentation at her baseline, she will answer questions correctly. He sent her home medications Head CT negative for any acute intracranial abnormality. CTA neck showed patent head and neck arteries. Urine collected indicative of urinary tract infection. Patient was on Rocephin 1 g IV daily, will d/c on doxy PO Qualifiers: Altered mental status type: disorientation Qualified Code(s): R41.0 - Disorientation, unspecified (2) Cast discomfort Priority: Secondary Status: Chronic Comments: Orthopedics service was consulted She was placed in a locked extension brace Weightbearing as tolerated with no knee motion of the right knee No surgical intervention Keep follow-up appointment as outpatient upon discharge (3) History of reduction of closed dislocation Priority: Secondary Status: Chronic Comments: Please see orthopedic information above (4) Morbid obesity with BMI of 40.0-44.9, adult Priority: Secondary Status: Chronic Comments: Not receptive to weight reduction measures (5) Multiple sclerosis Priority: Secondary Status: Chronic Comments: Stable (6) Overdose Priority: Primary Status: Acute Comments: To follow-up on her mental health clinic as an outpatient as scheduled Nonintentional Qualifiers: Encounter type: initial encounter Injury intent: accidental or unintentional Qualified Code(s): T50.901A - Poisoning by unspecified drugs, medicaments and biological substances, accidental (unintentional), initial encounter (7) Polypharmacy Priority: Secondary Status: Chronic Comments: Urine drug screen positive for benzodiazepines, marijuana, and opiates. OAR[facility] report reveals that she is prescribed Xanax, last filled in July, Vicodin 5/ 325mg for surgery last week, Gabapentin, and Diphenoxylate. Pt admits to smoking marijuana, as well. SW will discuss packaging medications at the pharmacy to avoid future unintentional overdoses. She is to follow up with her outpatient mental health clinic She declined rehabilitation services at this time (8) Schizophrenia Priority: Secondary Status: Chronic Comments: Continue home medications and follow up at her mental health clinic as scheduled Qualifiers: Schizophrenia type: unspecified Qualified Code(s): F20.9 - Schizophrenia, unspecified (9) UTI (urinary tract infection) Priority: Primary Status: Acute Comments: Review of sensitivity on urine culture and she will be discharged on doxycycline , patient has no symptoms at this time, afebrile Qualifiers: Urinary tract infection type: acute cystitis Hematuria presence: with hematuria Qualified Code(s): N30.01 - Acute cystitis with hematuria - Discharge Medications Prescriptions: Doxycycline 100 mg PO BID #14 capsule Home Medications: Atorvastatin [Lipitor] 40 mg PO HS 04/10/15 [History] Sertraline [Zoloft] 100 mg PO DAILY 04/10/15 [History] Levothyroxine [Synthroid] 112 mcg PO QAM 09/01/16 [History] Potassium Chloride [Klor-Con 10] 20 meq PO BID 09/01/16 [History] Mirabegron [Myrbetriq] 50 mg PO DAILY 06/29/17 [History] ALPRAZolam [Xanax 1 MG Tablet] 1 mg PO BID PRN 07/14/17 [History] Furosemide [Lasix] 40 mg PO DAILY #30 07/17/17 [Rx] Pantoprazole Sodium [Protonix] 40 mg PO BID #60 tablet. 07/17/17 [Rx] BuPROPion SR (12 HR) [Wellbutrin SR] 150 mg PO BID 07/26/17 [History] Ipratropium/Albuterol Neb [Duoneb] 3 ml IH Q6HR PRN 07/26/17 [History] Gabapentin [Neurontin] 300 mg PO TID #45 capsule 07/29/17 [Rx] Oxybutynin [Ditropan] 5 mg PO DAILY #30 tablet 08/16/17 [Rx] Amitriptyline [Elavil] 25 mg PO HS 09/19/17 [History] Buspirone HCl [Buspar] 10 mg PO BID 09/19/17 [History] Famotidine [Heartburn Prevention] 20 mg PO DAILY 09/19/17 [History] Fluticasone Propionate [Flovent Hfa] 1 puff IH BID 09/19/17 [History] Ibuprofen [Motrin] 600 mg PO BID 09/19/17 [History] Meloxicam [Mobic] 15 mg PO DAILY 09/19/17 [History] Nystatin POWDER [Nystop] 1 appl TP BID 09/19/17 [History] OxyCODONE/APAP 5/325 [Percocet 5/325 MG] 1 tab PO QID PRN 09/19/17 [History] Promethazine [Phenergan] 25 mg PO Q8HR PRN 09/19/17 [History] Quetiapine Fumarate [Seroquel] 75 mg PO HS 09/19/17 [History] Baclofen 20 mg PO BID 09/23/17 [History] Diphenoxylate/Atropine [Lomotil 2.5 mg/0.025 mg] 1 tab PO QID PRN 09/23/17 [ History] Melatonin/Pyridoxine HCl (B6) [Melatonin 5 mg Tablet] 5 mg PO HS PRN 09/23/17 [ History] Doxycycline 100 mg PO BID #14 capsule 09/27/17 [Rx] Allergies/Adverse Reactions: 3 Allergy/AdvReac Type Severity Reaction Status Date / Time No Known Allergies Allergy Verified 08/22/17 16:11 Date of admission: 09/23/17 14:19 Primary care physician: Johnie Farley MD Consults: 09/23/17 15:23 Consult to Crane [employer]ic [CONS] Routine Reason for SW Consult: discharge planning 09/25/17 07:32 Consult to Orthopedic Surgery [CONS] Routine Consulting Provider: Orthopedics [facility] Reason for Consult: Pt complains of cast slipping and pain from cast. Admit note says that ER spoke with ortho when pt was admitted on Sat night, no consult was entered Call Completed: No 09/27/17 08:30 Consult to Psychiatry [CONS] Routine Consulting Provider: Psychiatry [facility] Reason for Consult: overdose, polypharmacy, schizophrenia Time Notified: 08:31 Call Completed: Yes Discharging clinician: Kenia Tyson Anticipated date of discharge: 09/27/17 - Patient Status Disposition: Home, Self-Care Condition: Good Functional capacity at discharge: independent ambulation Overall status at discharge: patient is back to baseline - Discharge Instructions Follow Up With: Carmel Long MD [Partnered Physician] - Cesar Luong MD [Partnered Physician] - 10/03/17 9:20 am Johnie Farley MD [Primary Care Provider] - 10/04/17 1:15 pm Additional Instructions: Follow-up with orthopedic doctor as directed and previously scheduled, continue to use knee immobilizer at all times with weightbearing as tolerated - Diet and Activity Activity: resume usual activities as tolerated Diet: advance to your usual diet Interval History: Patient mentation has returned to normal she is alert and oriented 3 and answers all questions appropriately. She still has some right knee pain but with a saw her and placed her in a knee brace with weightbearing as tolerated. She denies fever, chills, abdominal pain, chest pain, shortness of breath and feels she is ready for discharge. She declined any further assistance with substance abuse as well as offered by her outpatient psychiatric facility. Hospital course: Please see the details and the assessment and plan for details of this admission - Time Spent with Patient Total time spent providing and/or coordinating discharge services: - Constitutional Vitals: Temp Pulse Resp BP Pulse Ox 98.3 F 73 16 145/88 99 09/27/17 06:32 09/27/17 06:32 09/27/17 07:48 09/27/17 06:32 09/27/17 08:00 General appearance: Present: cooperative, A&O X 3, morbidly obese, pleasant, no acute distress. Absent: answers questions appropriately - Head Head exam: Present: atraumatic, normocephalic - Eye Eye exam: Present: PERRL, conjuntiva pink, sclera anicteric Pupils: Present: PERRL - Neck Neck exam general surgery: Present: supple, trachea midline. Absent: lymphadenopathy - Respiratory Respiratory exam: Present: CTAB. Absent: accessory muscle use, rales, rhonchi, wheezes - Cardiovascular Cardiovascular exam: Present: RRR, +S1, +S2. Absent: diastolic murmur, gallop, rubs, systolic murmur - GI/Abdominal GI/Abdominal exam: Present: normal bowel sounds, soft, no peritoneal signs. Absent: distended, tenderness - Extremities Exam Extremities exam: Present: warm, radial pulses palpable and symmetrical. Absent : calf tenderness, cyanotic, pedal edema - Neurological Exam Neurological exam: Present: CN II-XII intact, oriented X3, no focal deficits. Absent: pronater drift, facial droop, speech deficit - Skin Skin exam: Present: dry, intact, warm
== END 2017-09-27 14:35 | disposition home or self-care (01) ==
LOC: EMEROO 08:59 → 3BNU 08:59
PROVIDERS: ADMIT Registered Nurse; ATTEND Registered Nurse

== ENCOUNTER 2017-10-07 11:24 | Inpatient (IN) ==
[2017-10-07 12:17] LABS: VBG HCO3 29 mEq/L (21-27); VBG PCO2 51 mmHg (41-51); VBG PH 7.36 pH Units (7.32-7.42); VBG PO2 44 mmHg (25-50)
[2017-10-07 12:30] LABS: Bilirubin,Urine Negative (Negative); Blood,Urine Negative (Negative); Color,Urine Yellow (Yellow); Glucose,Urine (UA) Normal (Normal); Ketones,Urine Negative (Negative); Leukocyte Esterase,Urine Negative (Negative); Nitrite,Urine Negative (Negative); Protein,Urine Negative (Neg-Trace); Specific Gravity,Urine 1.011 (1.010-1.025); Urobilinogen,Urine Normal (Normal)
[2017-10-07 12:32] LABS: Acetaminophen < 1.0 mcg/mL (10-30); Ethanol < 10 mg/dL (0-10); Salicylate < 5.0 mg/dL (15.0-30.0)
[2017-10-07 12:33] LABS: BUN/Creatinine Ratio 10 (6-26); Blood Urea Nitrogen 9 mg/dL (6-20); Calcium 9.9 mg/dL (8.6-10.3); Carbon Dioxide 26 mEq/L (23-29); Chloride 109 mEq/L (98-107); Glucose 97 mg/dL (70-105); Osmolality,Calculated 295 (280-300); Potassium 3.3 mEq/L (3.5-5.1); Sodium 143 mEq/L (136-145); eGFR For African Americans > 60 (> 60); eGFR For Non-African Americans > 60 (> 60)
[2017-10-07 12:36] LABS: Amphetamine Screen,Urine Negative ng/mL (Cutoff=1000); Barbiturate Screen,Urine Negative ng/mL (Cutoff=200); Benzodiazepines Screen,Urine Negative ng/mL (Cutoff=200); Cannabinoid Screen,Urine Positive ng/mL (Cutoff = 50); Cocaine Screen,Urine Negative ng/mL (Cutoff= 300); Opiate Screen,Urine Negative ng/mL (Cutoff=300); Phencyclidine Screen,Urine Negative ng/mL (Cutoff=25)
[2017-10-07 12:38] LABS: Clarity,Urine Clear (Clear)
[2017-10-07] MEDS: 0.9 % Sodium Chloride 1,000 ML IVC SCH (13:03)
--- NOTE | 2017-10-07 14:28 | Emergency Department Note ---
Overdose - Lab Data Result diagrams: 10/07/17 16:32 10/07/17 12:02 Lab Results 10/07/17 10/07/17 10/07/17 Range/Units 12:02 12:15 12:17 VBG pH 7.36 (7.32-7.42) pH Units VBG pCO2 51 (41-51) mmHg VBG pO2 44 (25-50) mmHg VBG HCO3 29 H (21-27) mEq/L Sodium 143 (136-145) mEq/L Potassium 3.3 L (3.5-5.1) mEq/L Chloride 109 H (98-107) mEq/L Carbon Dioxide 26 (23-29) mEq/L BUN 9 (6-20) mg/dL Creatinine 0.93 (0.60-1.20) mg/dL Est GFR ( Amer) > 60 (> 60) Est GFR (Non-Af Amer) > 60 (> 60) BUN/Creatinine Ratio 10 (6-26) Glucose 97 (70-105) mg/dL Calculated Osmolality 295 (280-300) Calcium 9.9 (8.6-10.3) mg/dL Urine Color Yellow (Yellow) Urine Clarity Clear (Clear) Urine pH 6.0 (5.0-8.0) pH Units Ur Specific [place] 1.011 (1.010-1.025) Urine Protein Negative (Neg-Trace) mg/dL Urine Glucose (UA) Normal (Normal) mg/dL Urine Ketones Negative (Negative) mg/dL Urine Blood Negative (Negative) Urine Nitrite Negative (Negative) Urine Bilirubin Negative (Negative) Urine Urobilinogen Normal (Normal) mg/dL Ur Leukocyte Esterase Negative (Negative) Salicylates < 5.0 L (15.0-30.0) mg/dL Urine Opiates Screen (Eysojd=856) ng/mL Acetaminophen < 1.0 L (10-30) mcg/mL Ur Barbiturates Screen (Ixvcfa=506) ng/mL Ur Phencyclidine Scrn (Cutoff=25) ng/mL Ur Amphetamines Screen (Msngrw=8441) ng/mL U Benzodiazepines Scrn (Iziugv=881) ng/mL Urine Cocaine Screen (Cutoff= 300) ng/mL U Marijuana (THC) Screen (Cutoff = 50) ng/mL Ethyl Alcohol < 10 (0-10) mg/dL 10/07/17 Range/Units 12:17 VBG pH (7.32-7.42) pH Units VBG pCO2 (41-51) mmHg VBG pO2 (25-50) mmHg VBG HCO3 (21-27) mEq/L Sodium (136-145) mEq/L Potassium (3.5-5.1) mEq/L Chloride (98-107) mEq/L Carbon Dioxide (23-29) mEq/L BUN (6-20) mg/dL Creatinine (0.60-1.20) mg/dL Est GFR ( Amer) (> 60) Est GFR (Non-Af Amer) (> 60) BUN/Creatinine Ratio (6-26) Glucose (70-105) mg/dL Calculated Osmolality (280-300) Calcium (8.6-10.3) mg/dL Urine Color (Yellow) Urine Clarity (Clear) Urine pH (5.0-8.0) pH Units Ur Specific [place] (1.010-1.025) Urine Protein (Neg-Trace) mg/dL Urine Glucose (UA) (Normal) mg/dL Urine Ketones (Negative) mg/dL Urine Blood (Negative) Urine Nitrite (Negative) Urine Bilirubin (Negative) Urine Urobilinogen (Normal) mg/dL Ur Leukocyte Esterase (Negative) Salicylates (15.0-30.0) mg/dL Urine Opiates Screen Negative (Nbtciw=583) ng/mL Acetaminophen (10-30) mcg/mL Ur Barbiturates Screen Negative (Feduxd=506) ng/mL Ur Phencyclidine Scrn Negative (Cutoff=25) ng/mL Ur Amphetamines Screen Negative (Jftyoc=2724) ng/mL U Benzodiazepines Scrn Negative (Fzjuvk=999) ng/mL Urine Cocaine Screen Negative (Cutoff= 300) ng/mL U Marijuana (THC) Screen Positive H (Cutoff = 50) ng/mL Ethyl Alcohol (0-10) mg/dL Overdose HPI - General Chief Complaint: ED Overdose Stated Complaint: OD Time Seen by Provider: 10/07/17 11:35 Source: patient, EMS Limitations: no limitations Nursing Notes Reviewed: Yes Vital Signs Reviewed: Yes - History of Present Illness HPI Narrative: 57-year-old female brought to ED by EMS because of overdose. Original intention of the overdose is not clear, but, according to family she took at least 80 mg of baclofen and 900 mg of gabapentin as well as possibly other medications but they are unable to quantitate. When asked if she was trying to hurt herself she will first say "no" followed by "I don't know". Pt Subjective Complaint: intentional overdose Onset (ago): hour(s) (1) Intent: unknown How Overdose Was Discovered: family/friend present at time Treatments Prior to Arrival: none - Related Data Home Medications Medication Instructions Recorded Confirmed Atorvastatin [Lipitor] 40 mg PO HS 04/10/15 10/07/17 Sertraline [Zoloft] 100 mg PO DAILY 04/10/15 10/07/17 Levothyroxine [Synthroid] 112 mcg PO QAM 09/01/16 10/07/17 Potassium Chloride [Klor-Con 10] 20 meq PO BID 09/01/16 10/07/17 Mirabegron [Myrbetriq] 50 mg PO DAILY 06/29/17 10/07/17 ALPRAZolam [Xanax 1 MG Tablet] 1 mg PO BID PRN 07/14/17 10/07/17 BuPROPion SR (12 HR) [Wellbutrin 150 mg PO BID 07/26/17 10/07/17 SR] Ipratropium/Albuterol Neb [Duoneb] 3 ml IH Q6HR PRN 07/26/17 10/07/17 Amitriptyline [Elavil] 25 mg PO HS 09/19/17 10/07/17 Buspirone HCl [Buspar] 10 mg PO BID 09/19/17 10/07/17 Famotidine [Heartburn Prevention] 20 mg PO DAILY 09/19/17 10/07/17 Fluticasone Propionate [Flovent 1 puff IH BID 09/19/17 10/07/17 Hfa] Ibuprofen [Motrin] 600 mg PO TID 09/19/17 10/07/17 Meloxicam [Mobic] 15 mg PO DAILY 09/19/17 10/07/17 Nystatin POWDER [Nystop] 1 appl TP BID 09/19/17 10/07/17 OxyCODONE/APAP 5/325 [Percocet 1 tab PO QID PRN 09/19/17 10/07/17 5/325 MG] Promethazine [Phenergan] 25 mg PO Q8HR PRN 09/19/17 10/07/17 Quetiapine Fumarate [Seroquel] 75 mg PO HS 09/19/17 10/07/17 Baclofen 20 mg PO BID 09/23/17 10/07/17 Diphenoxylate/Atropine [Lomotil 1 tab PO QID PRN 09/23/17 10/07/17 2.5 mg/0.025 mg] Melatonin/Pyridoxine HCl (B6) 5 mg PO HS PRN 09/23/17 10/07/17 [Melatonin 5 mg Tablet] Previous Rx's Medication Instructions Recorded Furosemide [Lasix] 40 mg PO DAILY #30 07/17/17 Pantoprazole Sodium [Protonix] 40 mg PO BID #60 tablet. 07/17/17 Gabapentin [Neurontin] 300 mg PO TID #45 capsule 07/29/17 Oxybutynin [Ditropan] 5 mg PO DAILY #30 tablet 08/16/17 Allergies Allergy/AdvReac Type Severity Reaction Status Date / Time No Known Allergies Allergy Verified 10/04/17 15:55 Limitations: ROS unobtainable due to patients medical condition (intermittently obtunded from the overdose ) Constitutional: Denies: fever Past Medical History - Past Medical History Attestation: Yes The following information was validated with the patient. Medical history: Reports: cancer, CHF, hyperlipidemia, thyroid disease, other Surgical history: Reports: other, appendectomy Psychiatric history: Reports: anxiety, depression [employer] history: Reports: bilateral tubal ligation - Social History Smoking Status: Current every day smoker Smokeless Tobacco Status: No Alcohol use: Reports: none Drug use: Reports: marijuana Physical Exam - General Limitations: no limitations General appearance: in no apparent distress, obtunded - Head Head exam: atraumatic, normocephalic - Eye Eye exam: Present: normal appearance - ENT ENT exam: mucous membranes dry - Neck Neck exam: Present: normal inspection, trachea midline - Chest Chest inspection: Present: normal inspection, symmetric chest wall rise - Respiratory Respiratory exam: Present: normal lung sounds bilaterally. Absent: wheezes - Cardiovascular Cardiovascular exam: Present: regular rate, normal rhythm - Abdominal Exam Abdominal exam: Present: soft, Non-Tender - Extremities Exam Extremities exam: Absent: pedal edema - Back Exam Back exam: Present: normal inspection - Neurological Exam Neurological exam: Present: other (Patient arouses with painful and loud verbal stimulus. She still seems to be confused and not answering all questions appropriately. Reverberating answers) - Psychiatric Psychiatric exam: Present: flat affect Course - Reevaluation(s) Reevaluation #1: She remains confused and occasionally falls asleep but arouses easily. She then awakens and is agitated at times. Urine drug screen positive only for marijuana, negative for benzodiazepines and opiates. Certainly she could manifest since presentation from the gabapentin as well as baclofen. She also has access to multiple other medications that could be sedating. Her intention is still unclear. She will require medical admission before psychiatric evaluation Time: 14:35 Reevaluation #2: D/W Hospitalist; will not accept the admission without CBC and Head CT Time: 15:16 Reevaluation #3: CBC was completed and unremarkable. CT of the head was negative. Continues with intermittent agitation. Maintains airway reflexes. Continues asking for Percocet. She will still require admission to the hospital to monitor for respiratory depression, seizures and bradycardia due to the baclofen. Vital Signs Temperature 97.8 F 10/07/17 11:25 Pulse Rate 71 10/07/17 11:25 Respiratory Rate 20 10/07/17 11:25 Blood Pressure 145/115 10/07/17 11:25 O2 Sat by Pulse Oximetry 96 10/07/17 11:25 Temperature 98.3 F 10/07/17 17:43 Pulse Rate 75 10/07/17 17:43 Respiratory Rate 20 10/07/17 17:43 Blood Pressure 163/108 10/07/17 17:43 O2 Sat by Pulse Oximetry 96 10/07/17 17:43 Oxygen Delivery Oxygen Delivery Room Air Disposition Clinical Impression: Baclofen overdose Qualifiers: Encounter type: initial encounter Injury intent: undetermined intent Qualified Code(s): T42.8X4A - Poisoning by antiparkinsonism drugs and other central muscle -tone depressants, undetermined, initial encounter Gabapentin overdose Qualifiers: Encounter type: initial encounter Injury intent: undetermined intent Qualified Code(s): T42.6X4A - Poisoning by other antiepileptic and sedative-hypnotic drugs , undetermined, initial encounter Suicidal behavior Qualifiers: Attempted self-injury: with attempted self-injury Qualified Code(s): T14.91XA - Suicide attempt, initial encounter Disposition: Admitted As Inpatient Condition: Fair Time of Disposition: 14:36
[2017-10-07 16:40] LABS: Basophils % 0.5 %; Eosinophils # 0.1 K/mcL (0.0-0.6); Eosinophils % 1.4 %; Hemoglobin 11.1 g/dL (11.5-15.4); Immature Granulocytes % 0.4 % (0-4); Lymphocytes # 1.3 K/mcL (0.6-4.6); Lymphocytes % 17.5 %; Mean Corpuscular HGB Conc 32.6 g/dL (31.6-35.5); Mean Corpuscular Hemoglobin 30.4 pg (28.0-33.3); Mean Corpuscular Volume 93.2 fL (83.0-100.0); Mean Platelet Volume 10.8 fL (9.4-12.4); Monocytes # 0.5 K/mcL (0.0-1.3); Monocytes % 7.4 %; Neutrophils # 5.3 K/mcL (1.6-8.9); Platelet Count 166 K/mcL (140-400); Red Blood Count 3.65 M/mcL (3.82-4.97); Red Cell Distribution Width 14.2 % (11.5-14.5); Segmented Neutrophils % 72.8 %
[2017-10-07] MEDS ORDERED: Naloxone 0.4 MG/ML INJ IVP PRN (18:56)
[2017-10-07] MEDS ORDERED: Acetaminophen 325 MG TABLET PO PRN (18:56)
[2017-10-07] MEDS ORDERED: Ipratropium/Albuterol Neb 3 ML IH PRN (19:03)
[2017-10-07 20:24] LABS: Alanine Aminotransferase 13 Units/L (7-52); Albumin 4.3 g/dL (3.5-5.7); Albumin/Globulin Ratio 1.7 (1.1-2.2); Alkaline Phosphatase 128 Units/L (34-104); Aspartate Amino Transferase 14 Units/L (13-39); Bilirubin,Direct 0.1 mg/dL (0.0-0.2); Bilirubin,Indirect 0.4 mg/dL (0.0-1.2); Bilirubin,Total 0.5 mg/dL (0.3-1.0); Globulin 2.5 g/dL (2.4-3.5); Total Protein 6.8 g/dL (6.4-8.9)
[2017-10-07] MEDS ORDERED: Potassium Chloride 40 MEQ, Lidocaine 1% 2 ML in D5% in Water 500 ML IVPB ONE (21:31)
--- NOTE | 2017-10-07 21:37 | Internal Med History&Physical ---
<Kishor Covington - Last Filed: 10/07/17 23:34> Date of Encounter: 10/07/17 Time of Encounter: 18:00 Assessment and Plan (1) Overdose Current visit: Yes Status: Acute Acute on chronic drug overdose. Discrepancy regarding amount of drugs ingested. Pt. is unclear as to suicide/self-harm intent on exam d/t AMS. SO states patient took 40 mg Baclofen and 600 mg Gabapentin. Pt. states she took 10-20 Gabapentin pills. Hx of overdose and suicidal ideations. CIWA scale ordered. Sitter and suicide precautions ordered. Seizure precautions. Ativan IVP Q2 for withdrawal/agitation. ED instructed to contact Poison Control when patient was accepted to Hospitalist care. Falls/safety precautions, up with assist, bed rest w/bedside commode with assist only. D/t unclear intent and hx of suicidal ideations, Psychiatry consult ordered and I appreciate the consult. NPO status until ordered dysphagia screen passed. BG checks Q6 d/t NPO status. Pt. and f/u labs to be monitored closely. Pt. discussed w/Dr. Wesley who is in agreement w/ plan of care. Pt. is high risk for further morbidity d/t current OD of unknown amount, unclear current suicidal intent, hx, and risk factors. Inpatient. Qualifiers: Encounter type: initial encounter Injury intent: undetermined intent Qualified Code(s): T50.904A - Poisoning by unspecified drugs, medicaments and biological substances, undetermined, initial encounter (2) Hypokalemia Current visit: Yes Status: Acute Acute hypokalemia w/potassium of 3.3 on admission. 40 mEq given PO. Second potassium level 2.9. IVPB 40 mEq potassium rider w/lidocaine ordered. F/u potassium level at 0400. Monitor pt. and f/u labs. Continuous telemetry. (3) Suicidal behavior Current visit: Yes Status: Chronic Hx of suicidal behavior. Pt. unclear about past attempts and SO is not helpful regarding details. Suicide precautions and Sitter ordered. Consult to Psychiatry ordered and discussed w/1A and I appreciate the consult. Qualifiers: Attempted self-injury: with attempted self-injury Qualified Code(s): T14.91XA - Suicide attempt, initial encounter (4) CHF (congestive heart failure) Current visit: Yes Status: Chronic Hx of chronic CHF. Stable. Continuous cardiac telemetry. Timed troponins ordered. Qualifiers: Heart failure type: unspecified Heart failure chronicity: chronic Qualified Code(s): I50.9 - Heart failure, unspecified (5) HLD (hyperlipidemia) Current visit: Yes Status: Chronic Hx of chronic HLD. Lipid panel in a.m. labs. Holding pts. PO meds until dysphagia screen passed and AMS resolves. Qualifiers: Hyperlipidemia type: pure hypercholesterolemia Qualified Code(s): E78.00 - Pure hypercholesterolemia, unspecified; E78.0 - Pure hypercholesterolemia (6) Hypothyroid Current visit: Yes Status: Chronic Hx of chronic hypothyroidism. TSH and Free T4 in a.m. labs. Continue pts. Synthroid. Qualifiers: Hypothyroidism type: unspecified Qualified Code(s): E03.9 - Hypothyroidism , unspecified (7) Morbid obesity with BMI of 40.0-44.9, adult Current visit: Yes Status: Chronic Hx of morbid obesity w/BMI of 41.1 currently. Chronic. (8) Anemia Current visit: Yes Status: Chronic Hx of chronic anemia. Hgb 11.1 and Hct 34.0 on admission which is pts. baseline. H/H in a.m. labs. Qualifiers: Anemia type: unspecified type Qualified Code(s): D64.9 - Anemia, unspecified (9) DVT prophylaxis Current visit: Yes Status: Acute Bilateral SCDs on LEs for DVT prophylaxis. Internal Medicine - H&P: HPI Chief complaint: OD Admitted From: Emergency Dept Plans for Post Hospital Care: Home History of present illness: Ms. Copeland is a 57 year old female with medical hx of anal/rectal cancer, CHF , hyperlipidemia, thyroid disease, and drug abuse presents from the ED with chief complaint of overdose. Etiology of overdose is unclear but patient has lengthy history of overdose and suicidal ideations. Family reports she took 80 mg baclofen and 900 mg of gabapentin but patient states she took 20-30 gabapentin pills. Patient states she is unsure she was trying to hurt herself. Due to altered mental status, patient unable to provide much information on assessment. Patient is parroting during exam and repeating what ever is mentioned or asked of her over and over. Past Med Surg Social Fam HX - Past Medical History Source: old records reviewed Medical history: cancer (Anal/rectal dx 10-12 years ago (resolved according to SO)), CHF, hyperlipidemia, thyroid disease, other Psychiatric history: anxiety, depression - Past Surgical History Surgical History: other, appendectomy - Social History Smoking Status: Current every day smoker Packs per day: 1 PPD Smokeless Tobacco Status: No Alcohol use: none Drug use: marijuana, prescription drug abuse Current living situation: Home, With Family Activity Level: Independent ambulation Recent Out of Country Travel Within the Last 8 Weeks: No Exposure or Possible Exposure to Illness During Travel: No - Family History Father Race: Family Member Ethnicity: Non- Living Status: Cause of : Cancer Hx Family Cancer: Yes Mother Race: Family Member Ethnicity: Non- Living Status: Still Living Hx Family Neurologic Disorders: Yes (Alzheimer's Disease) Brother History Unknown: Yes Race: Family Member Ethnicity: Non- Living Status: Still Living Sister History Unknown: Yes Race: Family Member Ethnicity: Non- Living Status: Still Living Internal Medicine - H&P: Meds Atorvastatin [Lipitor] 40 mg PO HS 04/10/15 [History] Sertraline [Zoloft] 100 mg PO DAILY 04/10/15 [History] Levothyroxine [Synthroid] 112 mcg PO QAM 09/01/16 [History] Potassium Chloride [Klor-Con 10] 20 meq PO BID 09/01/16 [History] Mirabegron [Myrbetriq] 50 mg PO DAILY 06/29/17 [History] ALPRAZolam [Xanax 1 MG Tablet] 1 mg PO BID PRN 07/14/17 [History] Furosemide [Lasix] 40 mg PO DAILY #30 07/17/17 [Rx] Pantoprazole Sodium [Protonix] 40 mg PO BID #60 tablet. 07/17/17 [Rx] BuPROPion SR (12 HR) [Wellbutrin SR] 150 mg PO BID 07/26/17 [History] Ipratropium/Albuterol Neb [Duoneb] 3 ml IH Q6HR PRN 07/26/17 [History] Gabapentin [Neurontin] 300 mg PO TID #45 capsule 07/29/17 [Rx] Oxybutynin [Ditropan] 5 mg PO DAILY #30 tablet 08/16/17 [Rx] Amitriptyline [Elavil] 25 mg PO HS 09/19/17 [History] Buspirone HCl [Buspar] 10 mg PO BID 09/19/17 [History] Famotidine [Heartburn Prevention] 20 mg PO DAILY 09/19/17 [History] Fluticasone Propionate [Flovent Hfa] 1 puff IH BID 09/19/17 [History] Ibuprofen [Motrin] 600 mg PO TID 09/19/17 [History] Meloxicam [Mobic] 15 mg PO DAILY 09/19/17 [History] Nystatin POWDER [Nystop] 1 appl TP BID 09/19/17 [History] OxyCODONE/APAP 5/325 [Percocet 5/325 MG] 1 tab PO QID PRN 09/19/17 [History] Promethazine [Phenergan] 25 mg PO Q8HR PRN 09/19/17 [History] Quetiapine Fumarate [Seroquel] 75 mg PO HS 09/19/17 [History] Baclofen 20 mg PO BID 09/23/17 [History] Diphenoxylate/Atropine [Lomotil 2.5 mg/0.025 mg] 1 tab PO QID PRN 09/23/17 [ History] Melatonin/Pyridoxine HCl (B6) [Melatonin 5 mg Tablet] 5 mg PO HS PRN 09/23/17 [ History] 3 Allergy/AdvReac Type Severity Reaction Status Date / Time No Known Allergies Allergy Verified 10/04/17 15:55 ROS unobtainable: due to mental status All Systems PM: A 10-system review of systems was performed and is negative for pertinent findings except as documented above in the HPI. - Constitutional Vitals: Temp Pulse Resp BP Pulse Ox 97.5 F L 73 20 143/79 97 10/07/17 20:04 10/07/17 20:04 10/07/17 20:04 10/07/17 20:04 10/07/17 20:04 General appearance: Present: A&O X 1, mild distress (Anxiety), morbidly obese - Head Head exam: Present: atraumatic, normocephalic - Eye Eye exam: Present: PERRL, conjuntiva pink, sclera anicteric Pupils: Present: PERRL - ENT ENT exam: Present: normal exam - Neck Neck exam general surgery: Present: supple, trachea midline. Absent: lymphadenopathy - Respiratory Respiratory exam: Present: CTAB. Absent: accessory muscle use, rales, rhonchi, wheezes - Cardiovascular Cardiovascular exam: Present: RRR, +S1, +S2. Absent: diastolic murmur, gallop, rubs, systolic murmur - GI/Abdominal GI/Abdominal exam: Present: normal bowel sounds, soft, no peritoneal signs. Absent: distended, tenderness - Rectal Rectal exam: Present: deferred - Additional comments: exam deferred. - Extremities Exam Extremities exam: Present: pedal edema, warm, radial pulses palpable and symmetrical. Absent: calf tenderness, cyanotic - Back Exam Back exam: Present: normal inspection - Neurological Exam Neurological exam: Present: altered - Psychiatric Psychiatric exam: Present: agitated, anxious - Skin Skin exam: Present: dry, intact Internal Med - H&P Results - Labs CBC & Chem 7: 10/07/17 16:32 10/07/17 19:47 Labs: BMP 10/07/17 19:47 Potassium 2.9 L - EKG Data EKG shows normal: sinus rhythm - EKG Data Prior EKG available for review: no EKG comments: 10/07/17 22:58 EKG dated 10/07/17 shows sinus rhythm with low QRS voltage in precordial leads and incomplete RBBB. - Diagnostic Studies CT scan - head Additional comments: Impressions Head CT 10/07/17 15:16 IMPRESSION: Mildly limited by patient motion artifact. No acute intracranial abnormality. D/ / Javi Griffin MD / Javi Griffin MD Interpreting Provider: Javi Griffin MD <Cecy Wesley - Last Filed: 10/08/17 01:23> Date of Encounter: 10/08/17 Internal Medicine - H&P: HPI History of present illness: Ms. Copeland is a 57 year old female All Systems PM: A 10-system review of systems was performed and is negative for pertinent findings except as documented above in the HPI. - Constitutional Vitals: Temp Pulse Resp BP Pulse Ox 97.4 F L 72 18 153/81 94 10/07/17 23:06 10/07/17 23:06 10/07/17 23:06 10/07/17 23:06 10/07/17 23:06 Internal Med - H&P Results - Labs CBC & Chem 7: 10/07/17 16:32 10/07/17 19:47 Labs: BMP 10/07/17 19:47 Potassium 2.9 L Cardiac Enzymes 10/07/17 Range/Units 22:58 Troponin I < 0.03 (< 0.04) ng/mL - Attending Attestation I have seen and examined this pt independently. I have discussed with SENIOR MECHANICAL ESTIMATOR Mr Monge regarding the management plan. Agree with the documentation.
[2017-10-07] MEDS: Beclomethasone 80mcg MDI IH SCH (21:46)
[2017-10-07] MEDS: Nystatin POWDER 30 GM BOTTLE TP SCH (22:24)
[2017-10-07] MEDS: *HR* LORazepam 2 MG/ML VIAL IVP PRN (22:24)
[2017-10-07] MEDS ORDERED: Pantoprazole 40 MG VIAL IVP ONE (23:17)
[2017-10-08] MEDS: 0.9 % Sodium Chloride 1,000 ML IVC SCH ×3 (00:15→10:50)
[2017-10-08 05:19] LABS: Basophils % 0.5 %; Eosinophils # 0.1 K/mcL (0.0-0.6); Eosinophils % 1.7 %; Hematocrit 32.5 % (35.3-44.9); Hemoglobin 10.3 g/dL (11.5-15.4); Immature Granulocytes % 0.3 % (0-4); Lymphocytes # 1.1 K/mcL (0.6-4.6); Mean Corpuscular HGB Conc 31.7 g/dL (31.6-35.5); Mean Corpuscular Hemoglobin 29.6 pg (28.0-33.3); Mean Corpuscular Volume 93.4 fL (83.0-100.0); Monocytes # 0.5 K/mcL (0.0-1.3); Monocytes % 8.2 %; Neutrophils # 4.1 K/mcL (1.6-8.9); Platelet Count 154 K/mcL (140-400); Red Blood Count 3.48 M/mcL (3.82-4.97); Red Cell Distribution Width 14.3 % (11.5-14.5); Segmented Neutrophils % 70.3 %
[2017-10-08 05:30] LABS: Hemoglobin A1C 4.5 %
[2017-10-08 05:40] LABS: Alanine Aminotransferase 11 Units/L (7-52); Albumin 3.4 g/dL (3.5-5.7); Albumin/Globulin Ratio 1.7 (1.1-2.2); Alkaline Phosphatase 106 Units/L (34-104); Aspartate Amino Transferase 8 Units/L (13-39); BUN/Creatinine Ratio 10 (6-26); Bilirubin,Total 0.5 mg/dL (0.3-1.0); Blood Urea Nitrogen 9 mg/dL (6-20); Calcium 8.8 mg/dL (8.6-10.3); Carbon Dioxide 28 mEq/L (23-29); Chloride 114 mEq/L (98-107); Chol/HDL Ratio 5.1 (0-4.9); Cholesterol 194 mg/dL (< 200); Glucose 92 mg/dL (70-105); HDL Cholesterol 38 mg/dL (40-59); LDL Cholesterol,Calculated 127 mg/dL (0-99); Magnesium 1.7 mg/dL (1.6-2.6); Osmolality,Calculated 300 (280-300); Phosphorous 3.5 mg/dL (2.7-4.5); Potassium 3.4 mEq/L (3.5-5.1); Sodium 146 mEq/L (136-145); Total Protein 5.4 g/dL (6.4-8.9); Triglycerides 144 mg/dL (< 150); eGFR For African Americans > 60 (> 60); eGFR For Non-African Americans > 60 (> 60)
[2017-10-08 05:50] LABS: Thyroid Stimulating Hormone 4.096 mcIU/mL (0.340-5.600)
[2017-10-08] MEDS: Pantoprazole 40 MG VIAL IVP SCH ×2 (06:20→16:33)
[2017-10-08] MEDS: Beclomethasone 80mcg MDI IH SCH ×2 (08:15→21:42)
[2017-10-08] MEDS: Nystatin POWDER 30 GM BOTTLE TP SCH ×2 (09:59→21:27)
--- NOTE | 2017-10-08 13:43 | Internal Med Progress Note ---
Date of Encounter: 10/08/17 Time of Encounter: 09:00 - Assessment and plan (1) Hypokalemia Current Visit: Yes Status: Acute Assessment and plan: Improved, still decreased at 3.4. Repeat and continue to supplement until corrected. (2) Overdose Current Visit: Yes Status: Acute Assessment and plan: Acute. Patient with multiple other drug overdoses. Unclear of exactly what or how much of any medication patient took. She remains drowsy and is unable to answer whether this was accidental or intentional with intent to harm herself. Per admission note, significant other states that she took 40 mg of baclofen and 600 mg of gabapentin. Patient states that she took 10-20 gabapentin pills. Lactic acid is 0.4. Patient has a sitter at bedside and is in suicide precautions. Also patient is in seizure precautions. [facility] protocol in place. Psychiatry consultation is pending. Qualifiers: Encounter type: initial encounter Injury intent: undetermined intent Qualified Code(s): T50.904A - Poisoning by unspecified drugs, medicaments and biological substances, undetermined, initial encounter (3) Anemia Current Visit: Yes Status: Chronic Assessment and plan: Patient appears to have some chronic anemia, appears to be her baseline. Patient is receiving IV fluids, could be dilutional. Continue to monitor. Qualifiers: Anemia type: unspecified type Qualified Code(s): D64.9 - Anemia, unspecified (4) CHF (congestive heart failure) Current Visit: Yes Status: Chronic Assessment and plan: Stable. Continue to monitor. No acute exacerbation. Watch for signs of fluid overload. Pt is eating and drinking, will stop IVF. Daily weights, I and 0 Pt has wheezing and cough today, CXR ordered. Qualifiers: Heart failure type: unspecified Heart failure chronicity: chronic Qualified Code(s): I50.9 - Heart failure, unspecified (5) HLD (hyperlipidemia) Current Visit: Yes Status: Chronic Assessment and plan: Continue home medications. C[place]di[place] diet. Qualifiers: Hyperlipidemia type: pure hypercholesterolemia Qualified Code(s): E78.00 - Pure hypercholesterolemia, unspecified; E78.0 - Pure hypercholesterolemia (6) Hypothyroid Current Visit: Yes Status: Chronic Assessment and plan: Chronic. Qualifiers: Hypothyroidism type: unspecified Qualified Code(s): E03.9 - Hypothyroidism , unspecified (7) Morbid obesity with BMI of 40.0-44.9, adult Current Visit: Yes Status: Chronic Assessment and plan: Chronic. Lifestyle modifications. (8) Suicidal behavior Current Visit: Yes Status: Chronic Assessment and plan: Difficult to ascertain if this was intentional or accidental. Pt does not answer questions appropriately. Sitter at bedside. Psych consult in and pending. Qualifiers: Attempted self-injury: with attempted self-injury Qualified Code(s): T14.91XA - Suicide attempt, initial encounter (9) DVT prophylaxis Current Visit: Yes Status: Acute Assessment and plan: [place] SCDs ordered. - Time Spent With Patient less than 15 minutes - Subjective Interval history: Pt was seen and assessed at 0900. PT was drowsy, arouses easily to verbal stimuli. She denies pain and does not answer questions appropriately. She states that she does not know why she is here. Sitter at bedside. - Constitutional Vitals: Temp Pulse Resp BP Pulse Ox 98.4 F 74 16 172/98 97 10/08/17 11:24 10/08/17 11:24 10/08/17 11:24 10/08/17 11:24 10/08/17 11:24 General appearance: Present: A&O X 1, mild distress (Anxiety), morbidly obese. Absent: answers questions appropriately - Head Head exam: Present: atraumatic, normal inspection, normocephalic - Eye Eye exam: Present: normal appearance, conjuntiva pink, sclera anicteric - Neck Neck exam general surgery: Present: supple, trachea midline. Absent: lymphadenopathy, tenderness - Respiratory Respiratory exam: Present: CTAB. Absent: accessory muscle use, chest wall tenderness, rales, respiratory distress, rhonchi, wheezes - Cardiovascular Cardiovascular exam: Present: RRR, +S1, +S2. Absent: diastolic murmur, gallop, rubs, systolic murmur - GI/Abdominal GI/Abdominal exam: Present: distended, normal bowel sounds, soft. Absent: hepatomegaly, tenderness - Extremities Exam Extremities exam: Present: normal capillary refill, normal inspection, warm, radial pulses palpable and symmetrical. Absent: calf tenderness, cyanotic, pedal edema, tenderness - Neurological Exam Neurological exam: Present: alert, oriented X3, no focal deficits. Absent: facial droop, speech deficit - Skin Skin exam: Present: dry, intact, normal color, warm. Absent: rash Internal Medicine: Result - Labs CBC & Chem 7: 10/08/17 05:09 10/08/17 05:09 Labs: Short CBC 10/08/17 Range/Units 05:09 WBC 5.9 (4.3-11.1) K/mcL Hgb 10.3 L (11.5-15.4) g/dL Hct 32.5 L (35.3-44.9) % Plt Count 154 (140-400) K/mcL Neutrophils # 4.1 (1.6-8.9) K/mcL BMP 10/07/17 10/08/17 19:47 05:09 Sodium 146 H Potassium 2.9 L 3.4 L Chloride 114 H Carbon Dioxide 28 BUN 9 Creatinine 0.91 Glucose 92 Calcium 8.8 Cardiac Enzymes 10/07/17 10/08/17 10/08/17 Range/Units 22:58 05:09 12:20 Troponin I < 0.03 < 0.03 < 0.03 (< 0.04) ng/mL Liver Function 10/08/17 Range/Units 05:09 Total Bilirubin 0.5 (0.3-1.0) mg/dL AST 8 L (13-39) Units/L ALT 11 (7-52) Units/L Alkaline Phosphatase 106 H (34-104) Units/L Albumin 3.4 L (3.5-5.7) g/dL Consult Discharge Plan - Plan Referrals: Johnie Farley MD [Primary Care Provider] -
--- NOTE | 2017-10-08 14:14 | Consult Note ---
Date of Encounter: 10/08/17 Time of Encounter: 14:07 Assessment & Recommendation (1) Altered mental status Current visit: No Status: Acute Assessment & Recommendation: Client still seems somewhat confused. Unclear what her baseline is. Will attempt to speak with her outpatient psychiatrist tomorrow for more information. Client denies overdose was a suicide attempt but don't know how trustworthy she is given that her cognition doesn't seem that great. Would also recommend getting feedback from boyfriend and family/friends who know her. Qualifiers: Altered mental status type: disorientation Qualified Code(s): R41.0 - Disorientation, unspecified History of Present Illness Requesting Physician: Tamara Wellington CNP Reason for consult: possible OD History of present illness: Ms. Copeland is a 57 year old female who was admitted secondary to a mental status change following an overdose of her medication. Client is not sure how much or what exactly she took. Denies she was making a suicide attempt. States she was trying to get better sleep. Still seems a little confused. Client denies feeling confused but her responses to questions were often contradictory. Takes multiple meds for depression and anxiety. Linked with a Psychiatrist here at [place]. Client reports a history of SI in the past but denies feeling suicidal in the past year. Client states she lives with her boyfriend. He was not present during interview. Unclear if he feels client was trying to hurt herself. Client states she is treated for a bad knee but she was unable to say if she has any other health problems beyond depression and anxiety. Wet the bed while speaking with this check writer. Never announced that she had to use the restroom. Client was not sure if she is treated for incontinence or not. Denies substance abuse beyond occasional THC. Client states she thinks she needs more marijuana. Does not seem to be mentating that well yet. Unclear what her baseline is. Will attempt to contact her outpatient psychiatrist for more info tomorrow. CC: Tamara Wellington CNP Past Med Surg Social Fam HX - Past Medical History Medical history: cancer (Anal/rectal dx 10-12 years ago (resolved according to [facility])), CHF, hyperlipidemia, thyroid disease, other - Past Psychiatric History Psychiatric history: Reports: anxiety, depression, previous psychiatric hospitalization Family psychiatric history: Unknown Family History of Suicide: Unknown - Past Surgical History Surgical History: other, appendectomy - Social History Smoking Status: Current every day smoker Smokeless Tobacco Status: No Alcohol use: none Drug use: marijuana, prescription drug abuse - Family History Brother History Unknown: Yes Race: Family Member Ethnicity: Non- Living Status: Still Living Sister History Unknown: Yes Race: Family Member Ethnicity: Non- Living Status: Still Living Father Race: Family Member Ethnicity: Non- Living Status: Cause of : Cancer Hx Family Cardiac Disorders: Yes Hx Family Respiratory Disorders: Yes Hx Family Cancer: Yes Mother Race: Family Member Ethnicity: Non- Living Status: Still Living Hx Family Neurologic Disorders: Yes (Alzheimer's Disease) Medications & Allergies Atorvastatin [Lipitor] 40 mg PO HS 04/10/15 [History] Sertraline [Zoloft] 100 mg PO DAILY 04/10/15 [History] Levothyroxine [Synthroid] 112 mcg PO QAM 09/01/16 [History] Potassium Chloride [Klor-Con 10] 20 meq PO BID 09/01/16 [History] Mirabegron [Myrbetriq] 50 mg PO DAILY 06/29/17 [History] ALPRAZolam [Xanax 1 MG Tablet] 1 mg PO BID PRN 07/14/17 [History] Furosemide [Lasix] 40 mg PO DAILY #30 07/17/17 [Rx] Pantoprazole Sodium [Protonix] 40 mg PO BID #60 tablet. 07/17/17 [Rx] BuPROPion SR (12 HR) [Wellbutrin SR] 150 mg PO BID 07/26/17 [History] Ipratropium/Albuterol Neb [Duoneb] 3 ml IH Q6HR PRN 07/26/17 [History] Gabapentin [Neurontin] 300 mg PO TID #45 capsule 07/29/17 [Rx] Oxybutynin [Ditropan] 5 mg PO DAILY #30 tablet 08/16/17 [Rx] Amitriptyline [Elavil] 25 mg PO HS 09/19/17 [History] Buspirone HCl [Buspar] 10 mg PO BID 09/19/17 [History] Famotidine [Heartburn Prevention] 20 mg PO DAILY 09/19/17 [History] Fluticasone Propionate [Flovent Hfa] 1 puff IH BID 09/19/17 [History] Ibuprofen [Motrin] 600 mg PO TID 09/19/17 [History] Meloxicam [Mobic] 15 mg PO DAILY 09/19/17 [History] Nystatin POWDER [Nystop] 1 appl TP BID 09/19/17 [History] OxyCODONE/APAP 5/325 [Percocet 5/325 MG] 1 tab PO QID PRN 09/19/17 [History] Promethazine [Phenergan] 25 mg PO Q8HR PRN 09/19/17 [History] Quetiapine Fumarate [Seroquel] 75 mg PO HS 09/19/17 [History] Baclofen 20 mg PO BID 09/23/17 [History] Diphenoxylate/Atropine [Lomotil 2.5 mg/0.025 mg] 1 tab PO QID PRN 09/23/17 [ History] Melatonin/Pyridoxine HCl (B6) [Melatonin 5 mg Tablet] 5 mg PO HS PRN 09/23/17 [ History] 3 Allergy/AdvReac Type Severity Reaction Status Date / Time No Known Allergies Allergy Verified 10/04/17 15:55 Review of Systems Constitutional: Denies: fever, chills, weakness, weight change Eyes: Denies: eye pain, vision change Ears, Nose, Throat: Denies: ear pain, throat pain, dental pain, hearing loss, congestion Cardiovascular: Denies: chest pain, palpitations, dyspnea on exertion Respiratory: Denies: cough, dyspnea, wheezes Gastrointestinal: Denies: abdominal pain, nausea, vomiting, diarrhea, constipation Genitourinary male: Denies: urgency, dysuria, frequency, genital lesions Genitourinary female: Denies: urgency, dysuria, frequency, abnormal menses, dyspareunia Musculoskeletal: Denies: joint swelling, joint pain Integumentary: Denies: rash, lesions, pruritus Neurological: Denies: headache, weakness, numbness, memory loss Endocrine: Denies: fatigue, heat or cold intolerance Hematologic/Lymphatic: Denies: easy bruising, lymphadenopathy Allergic/Immunologic: Denies: urticaria, itchy eyes Mental Status Exam Patient orientation: Yes Person, Yes Time, Yes Place Level of alertness: Alert Patient appearance: Unkempt Behavior: suspicious Psychomotor activity: Normal Eye contact: Intense Contact Mood description: Depressed Affect description: blunted Speech pattern: Normal rate, Normal rhythm, Normal tone Speech volume: Loud Thought process: Linear Thought content: No Suicidal ideation, No Homicidal ideation, No Overt delusions Perceptual disturbances: No Auditory hallucinations, No Visual hallucinations Attention span: Capable of Focused Attention Memory description: Grossly Intact Patient reliability: Questionable Historian Intelligence estimate: Below Average Judgment: Limited Insight: Minimal Results - Vital Signs Vital signs: Temp Pulse Resp BP Pulse Ox 98.4 F 74 16 172/98 97 10/08/17 11:24 10/08/17 11:24 10/08/17 11:24 10/08/17 11:24 10/08/17 11:24 - Labs Labs: Laboratory Last Values WBC 5.9 K/mcL (4.3-11.1) 10/08/17 05:09 RBC 3.48 M/mcL (3.82-4.97) L 10/08/17 05:09 Hgb 10.3 g/dL (11.5-15.4) L 10/08/17 05:09 Hct 32.5 % (35.3-44.9) L 10/08/17 05:09 MCV 93.4 fL (83.0-100.0) 10/08/17 05:09 MCH 29.6 pg (28.0-33.3) 10/08/17 05:09 MCHC 31.7 g/dL (31.6-35.5) 10/08/17 05:09 RDW 14.3 % (11.5-14.5) 10/08/17 05:09 Plt Count 154 K/mcL (140-400) 10/08/17 05:09 MPV 11.0 fL (9.4-12.4) 10/08/17 05:09 Immature Gran % 0.3 % (0-4) 10/08/17 05:09 Seg Neutrophils % 70.3 % 10/08/17 05:09 Lymphocytes % 19.0 % 10/08/17 05:09 Monocytes % 8.2 % 10/08/17 05:09 Eosinophils % 1.7 % 10/08/17 05:09 Basophils % 0.5 % 10/08/17 05:09 Neutrophils # 4.1 K/mcL (1.6-8.9) 10/08/17 05:09 Lymphocytes # 1.1 K/mcL (0.6-4.6) 10/08/17 05:09 Monocytes # 0.5 K/mcL (0.0-1.3) 10/08/17 05:09 Eosinophils # 0.1 K/mcL (0.0-0.6) 10/08/17 05:09 Basophils # 0.0 K/mcL (0.0-0.2) 10/08/17 05:09 VBG pH 7.36 pH Units (7.32-7.42) 10/07/17 12:15 VBG pCO2 51 mmHg (41-51) 10/07/17 12:15 VBG pO2 44 mmHg (25-50) 10/07/17 12:15 VBG HCO3 29 mEq/L (21-27) H 10/07/17 12:15 Sodium 146 mEq/L (136-145) H 10/08/17 05:09 Potassium 3.4 mEq/L (3.5-5.1) L 10/08/17 05:09 Chloride 114 mEq/L (98-107) H 10/08/17 05:09 Carbon Dioxide 28 mEq/L (23-29) 10/08/17 05:09 BUN 9 mg/dL (6-20) 10/08/17 05:09 Creatinine 0.91 mg/dL (0.60-1.20) 10/08/17 05:09 Est GFR ( Amer) > 60 (> 60) 10/08/17 05:09 Est GFR (Non-Af Amer) > 60 (> 60) 10/08/17 05:09 BUN/Creatinine Ratio 10 (6-26) 10/08/17 05:09 Glucose 92 mg/dL (70-105) 10/08/17 05:09 POC Glucose 109 (58-89) H 10/08/17 00:15 Est Mean Plasma Glucose 82 mg/dl 10/08/17 05:09 Hemoglobin A1c 4.5 % (-5.6) 10/08/17 05:09 Calculated Osmolality 300 (280-300) 10/08/17 05:09 Lactic Acid 0.4 mmol/L (0.5-2.2) L 10/08/17 08:07 Calcium 8.8 mg/dL (8.6-10.3) 10/08/17 05:09 Phosphorus 3.5 mg/dL (2.7-4.5) 10/08/17 05:09 Magnesium 1.7 mg/dL (1.6-2.6) 10/08/17 05:09 Total Bilirubin 0.5 mg/dL (0.3-1.0) 10/08/17 05:09 Direct Bilirubin 0.1 mg/dL (0.0-0.2) 10/07/17 12:02 Indirect Bilirubin 0.4 mg/dL (0.0-1.2) 10/07/17 12:02 AST 8 Units/L (13-39) L 10/08/17 05:09 ALT 11 Units/L (7-52) 10/08/17 05:09 Alkaline Phosphatase 106 Units/L (34-104) H 10/08/17 05:09 Troponin I < 0.03 ng/mL (< 0.04) 10/08/17 12:20 Serum Total Protein 5.4 g/dL (6.4-8.9) L 10/08/17 05:09 Albumin 3.4 g/dL (3.5-5.7) L 10/08/17 05:09 Globulin 2.0 g/dL (2.4-3.5) L 10/08/17 05:09 Albumin/Globulin Ratio 1.7 (1.1-2.2) 10/08/17 05:09 Triglycerides 144 mg/dL (< 150) 10/08/17 05:09 Cholesterol 194 mg/dL (< 200) 10/08/17 05:09 LDL Cholesterol, Calc 127 mg/dL (0-99) H 10/08/17 05:09 VLDL Cholesterol, Calc 29 mg/dL (< 31) 10/08/17 05:09 HDL Cholesterol 38 mg/dL (40-59) L 10/08/17 05:09 Cholesterol/HDL Ratio 5.1 (0-4.9) H 10/08/17 05:09 TSH 4.096 mcIU/mL (0.340-5.600) 10/08/17 05:09 Free T4 0.97 ng/dl (0.70-2.00) 10/08/17 05:09 Urine Color Yellow (Yellow) 10/07/17 12:17 Urine Clarity Clear (Clear) 10/07/17 12:17 Urine pH 6.0 pH Units (5.0-8.0) 10/07/17 12:17 Ur Specific [place] 1.011 (1.010-1.025) 10/07/17 12:17 Urine Protein Negative mg/dL (Neg-Trace) 10/07/17 12:17 Urine Glucose (UA) Normal mg/dL (Normal) 10/07/17 12:17 Urine Ketones Negative mg/dL (Negative) 10/07/17 12:17 Urine Blood Negative (Negative) 10/07/17 12:17 Urine Nitrite Negative (Negative) 10/07/17 12:17 Urine Bilirubin Negative (Negative) 10/07/17 12:17 Urine Urobilinogen Normal mg/dL (Normal) 10/07/17 12:17 Ur Leukocyte Esterase Negative (Negative) 10/07/17 12:17 Salicylates < 5.0 mg/dL (15.0-30.0) L 10/07/17 12:02 Urine Opiates Screen Negative ng/mL (Mvfhpq=212) 10/07/17 12:17 Acetaminophen < 1.0 mcg/mL (10-30) L 10/07/17 12:02 Ur Barbiturates Screen Negative ng/mL (Nrdyub=734) 10/07/17 12:17 Ur Phencyclidine Scrn Negative ng/mL (Cutoff=25) 10/07/17 12:17 Ur Amphetamines Screen Negative ng/mL (Xtwyns=9277) 10/07/17 12:17 U Benzodiazepines Scrn Negative ng/mL (Fnvsvx=494) 10/07/17 12:17 Urine Cocaine Screen Negative ng/mL (Cutoff= 300) 10/07/17 12:17 U Marijuana (THC) Screen Positive ng/mL (Cutoff = 50) H 10/07/17 12:17 Ethyl Alcohol < 10 mg/dL (0-10) 10/07/17 12:02 Consult Discharge Plan - Plan Referrals: Johnie Farley MD [Primary Care Provider] -
[2017-10-08] MEDS: *HR* LORazepam 2 MG/ML VIAL IVP PRN ×2 (16:33→21:45)
[2017-10-09] MEDS: *HR* LORazepam 2 MG/ML VIAL IVP PRN ×2 (01:30→03:43)
[2017-10-09] MEDS: Pantoprazole 40 MG VIAL IVP SCH (05:14)
[2017-10-09 06:55] LABS: Basophils % 0.5 %; Eosinophils # 0.1 K/mcL (0.0-0.6); Eosinophils % 1.9 %; Hematocrit 31.9 % (35.3-44.9); Hemoglobin 10.4 g/dL (11.5-15.4); Immature Granulocytes % 0.3 % (0-4); Lymphocytes # 1.1 K/mcL (0.6-4.6); Lymphocytes % 16.6 %; Mean Corpuscular HGB Conc 32.6 g/dL (31.6-35.5); Mean Corpuscular Volume 91.9 fL (83.0-100.0); Mean Platelet Volume 11.3 fL (9.4-12.4); Monocytes # 0.4 K/mcL (0.0-1.3); Monocytes % 6.8 %; Neutrophils # 4.7 K/mcL (1.6-8.9); Platelet Count 153 K/mcL (140-400); Red Blood Count 3.47 M/mcL (3.82-4.97); Red Cell Distribution Width 14.4 % (11.5-14.5); Segmented Neutrophils % 73.9 %
[2017-10-09 07:20] LABS: Alanine Aminotransferase 10 Units/L (7-52); Albumin 3.4 g/dL (3.5-5.7); Albumin/Globulin Ratio 1.8 (1.1-2.2); Alkaline Phosphatase 100 Units/L (34-104); Aspartate Amino Transferase 6 Units/L (13-39); BUN/Creatinine Ratio 15 (6-26); Bilirubin,Total 0.5 mg/dL (0.3-1.0); Blood Urea Nitrogen 13 mg/dL (6-20); Calcium 8.5 mg/dL (8.6-10.3); Carbon Dioxide 22 mEq/L (23-29); Chloride 114 mEq/L (98-107); Globulin 1.9 g/dL (2.4-3.5); Glucose 95 mg/dL (70-105); Osmolality,Calculated 294 (280-300); Potassium 3.5 mEq/L (3.5-5.1); Sodium 142 mEq/L (136-145); Total Protein 5.3 g/dL (6.4-8.9); eGFR For African Americans > 60 (> 60); eGFR For Non-African Americans > 60 (> 60)
[2017-10-09] MEDS: Beclomethasone 80mcg MDI IH SCH ×2 (08:19→20:14)
[2017-10-09] MEDS: Nystatin POWDER 30 GM BOTTLE TP SCH (09:27)
--- NOTE | 2017-10-09 14:14 | Consult Note ---
Date of Encounter: 10/09/17 Time of Encounter: 14:10 Assessment & Recommendation (1) Altered mental status Current visit: No Status: Acute Assessment & Recommendation: Can discharge to follow up with outpatient psych. Would recommend blister packs /med boxes/home delivery of medications or anything else that might be useful to help prevent client from becoming confused and overtaking medications. Would recommend she taper off of anything addictive or too sedating so she is not driven to abuse meds. Qualifiers: Altered mental status type: disorientation Qualified Code(s): R41.0 - Disorientation, unspecified History of Present Illness Requesting Physician: Tamara Wellington CNP Reason for consult: overdose History of present illness: Ms. Copeland is a 57 year old female who overdosed on her medications. Spoke with client again today. She is more clear headed. She continues to deny this was a suicide attempt. She is aware she took too many pills but states she was trying to get some sleep. States she has a history of doing this. Already linked with mental health services. This conventional mortgage underwriter spoke with her outpatient provider who verified that client has substance abuse issues and is known to overtake her medications. Reviewed recent records which say the same thing. Client will intentionally and unintentionally overtake prescription medications. However, her behaviors seem more driven by substance abuse and personality issues than genuine suicidality. CC: Tamara Wellington CNP Past Med Surg Social Fam HX - Past Medical History Medical history: cancer (Anal/rectal dx 10-12 years ago (resolved according to [facility])), CHF, hyperlipidemia, thyroid disease, other - Past Psychiatric History Psychiatric history: Reports: anxiety, depression, previous psychiatric hospitalization Family psychiatric history: Unknown Family History of Suicide: Unknown - Past Surgical History Surgical History: other, appendectomy - Social History Smoking Status: Current every day smoker Smokeless Tobacco Status: No Alcohol use: none Drug use: marijuana, prescription drug abuse - Family History Brother History Unknown: Yes Race: Family Member Ethnicity: Non- Living Status: Still Living Sister History Unknown: Yes Race: Family Member Ethnicity: Non- Living Status: Still Living Father Race: Family Member Ethnicity: Non- Living Status: Cause of : Cancer Hx Family Cardiac Disorders: Yes Hx Family Respiratory Disorders: Yes Hx Family Cancer: Yes Mother Race: Family Member Ethnicity: Non- Living Status: Still Living Hx Family Neurologic Disorders: Yes (Alzheimer's Disease) Medications & Allergies Atorvastatin [Lipitor] 40 mg PO HS 04/10/15 [History] Sertraline [Zoloft] 100 mg PO DAILY 04/10/15 [History] Levothyroxine [Synthroid] 112 mcg PO QAM 09/01/16 [History] Potassium Chloride [Klor-Con 10] 20 meq PO BID 09/01/16 [History] Mirabegron [Myrbetriq] 50 mg PO DAILY 06/29/17 [History] ALPRAZolam [Xanax 1 MG Tablet] 1 mg PO BID PRN 07/14/17 [History] Furosemide [Lasix] 40 mg PO DAILY #30 07/17/17 [Rx] Pantoprazole Sodium [Protonix] 40 mg PO BID #60 tablet. 07/17/17 [Rx] BuPROPion SR (12 HR) [Wellbutrin SR] 150 mg PO BID 07/26/17 [History] Ipratropium/Albuterol Neb [Duoneb] 3 ml IH Q6HR PRN 07/26/17 [History] Gabapentin [Neurontin] 300 mg PO TID #45 capsule 07/29/17 [Rx] Oxybutynin [Ditropan] 5 mg PO DAILY #30 tablet 08/16/17 [Rx] Amitriptyline [Elavil] 25 mg PO HS 09/19/17 [History] Buspirone HCl [Buspar] 10 mg PO BID 09/19/17 [History] Famotidine [Heartburn Prevention] 20 mg PO DAILY 09/19/17 [History] Fluticasone Propionate [Flovent Hfa] 1 puff IH BID 09/19/17 [History] Ibuprofen [Motrin] 600 mg PO TID 09/19/17 [History] Meloxicam [Mobic] 15 mg PO DAILY 09/19/17 [History] Nystatin POWDER [Nystop] 1 appl TP BID 09/19/17 [History] OxyCODONE/APAP 5/325 [Percocet 5/325 MG] 1 tab PO QID PRN 09/19/17 [History] Promethazine [Phenergan] 25 mg PO Q8HR PRN 09/19/17 [History] Quetiapine Fumarate [Seroquel] 75 mg PO HS 09/19/17 [History] Baclofen 20 mg PO BID 09/23/17 [History] Diphenoxylate/Atropine [Lomotil 2.5 mg/0.025 mg] 1 tab PO QID PRN 09/23/17 [ History] Melatonin/Pyridoxine HCl (B6) [Melatonin 5 mg Tablet] 5 mg PO HS PRN 09/23/17 [ History] 3 Allergy/AdvReac Type Severity Reaction Status Date / Time No Known Allergies Allergy Verified 10/04/17 15:55 Review of Systems Constitutional: Denies: fever, chills, weakness, weight change Eyes: Denies: eye pain, vision change Ears, Nose, Throat: Denies: ear pain, throat pain, dental pain, hearing loss, congestion Cardiovascular: Denies: chest pain, palpitations, dyspnea on exertion Respiratory: Denies: cough, dyspnea, wheezes Gastrointestinal: Denies: abdominal pain, nausea, vomiting, diarrhea, constipation Genitourinary male: Denies: urgency, dysuria, frequency, genital lesions Genitourinary female: Denies: urgency, dysuria, frequency, abnormal menses, dyspareunia Musculoskeletal: Denies: joint swelling, joint pain Integumentary: Denies: rash, lesions, pruritus Neurological: Denies: headache, weakness, numbness, memory loss Endocrine: Denies: fatigue, heat or cold intolerance Hematologic/Lymphatic: Denies: easy bruising, lymphadenopathy Allergic/Immunologic: Denies: urticaria, itchy eyes Mental Status Exam Patient orientation: Yes Person, Yes Time, Yes Place Level of alertness: Alert Patient appearance: Appropriate Behavior: calm, cooperative Psychomotor activity: Normal Eye contact: Maintains Eye Contact Mood description: Euthymic/stable Affect description: congruent with mood, full range Speech pattern: Normal rate, Normal rhythm, Normal tone Speech volume: Normal Thought process: Linear Thought content: No Suicidal ideation, No Homicidal ideation, No Overt delusions Perceptual disturbances: No Auditory hallucinations, No Visual hallucinations Attention span: Capable of Focused Attention Memory description: Immediate Intact, Recent Impaired, Remote Intact Patient reliability: Questionable Historian Intelligence estimate: Average Judgment: Limited Insight: Partial Results - Vital Signs Vital signs: Temp Pulse Resp BP Pulse Ox 98.1 F 78 15 161/97 98 10/09/17 11:45 10/09/17 11:45 10/09/17 11:45 10/09/17 11:45 10/09/17 11:45 - Labs Labs: Laboratory Last Values WBC 6.3 K/mcL (4.3-11.1) 10/09/17 06:30 RBC 3.47 M/mcL (3.82-4.97) L 10/09/17 06:30 Hgb 10.4 g/dL (11.5-15.4) L 10/09/17 06:30 Hct 31.9 % (35.3-44.9) L 10/09/17 06:30 MCV 91.9 fL (83.0-100.0) 10/09/17 06:30 MCH 30.0 pg (28.0-33.3) 10/09/17 06:30 MCHC 32.6 g/dL (31.6-35.5) 10/09/17 06:30 RDW 14.4 % (11.5-14.5) 10/09/17 06:30 Plt Count 153 K/mcL (140-400) 10/09/17 06:30 MPV 11.3 fL (9.4-12.4) 10/09/17 06:30 Immature Gran % 0.3 % (0-4) 10/09/17 06:30 Seg Neutrophils % 73.9 % 10/09/17 06:30 Lymphocytes % 16.6 % 10/09/17 06:30 Monocytes % 6.8 % 10/09/17 06:30 Eosinophils % 1.9 % 10/09/17 06:30 Basophils % 0.5 % 10/09/17 06:30 Neutrophils # 4.7 K/mcL (1.6-8.9) 10/09/17 06:30 Lymphocytes # 1.1 K/mcL (0.6-4.6) 10/09/17 06:30 Monocytes # 0.4 K/mcL (0.0-1.3) 10/09/17 06:30 Eosinophils # 0.1 K/mcL (0.0-0.6) 10/09/17 06:30 Basophils # 0.0 K/mcL (0.0-0.2) 10/09/17 06:30 VBG pH 7.36 pH Units (7.32-7.42) 10/07/17 12:15 VBG pCO2 51 mmHg (41-51) 10/07/17 12:15 VBG pO2 44 mmHg (25-50) 10/07/17 12:15 VBG HCO3 29 mEq/L (21-27) H 10/07/17 12:15 Sodium 142 mEq/L (136-145) 10/09/17 06:30 Potassium 3.5 mEq/L (3.5-5.1) 10/09/17 06:30 Chloride 114 mEq/L (98-107) H 10/09/17 06:30 Carbon Dioxide 22 mEq/L (23-29) L 10/09/17 06:30 BUN 13 mg/dL (6-20) 10/09/17 06:30 Creatinine 0.85 mg/dL (0.60-1.20) 10/09/17 06:30 Est GFR ( Amer) > 60 (> 60) 10/09/17 06:30 Est GFR (Non-Af Amer) > 60 (> 60) 10/09/17 06:30 BUN/Creatinine Ratio 15 (6-26) 10/09/17 06:30 Glucose 95 mg/dL (70-105) 10/09/17 06:30 POC Glucose 109 (58-89) H 10/08/17 11:28 Est Mean Plasma Glucose 82 mg/dl 10/08/17 05:09 Hemoglobin A1c 4.5 % (-5.6) 10/08/17 05:09 Calculated Osmolality 294 (280-300) 10/09/17 06:30 Lactic Acid 0.4 mmol/L (0.5-2.2) L 10/08/17 08:07 Calcium 8.5 mg/dL (8.6-10.3) L 10/09/17 06:30 Phosphorus 3.5 mg/dL (2.7-4.5) 10/08/17 05:09 Magnesium 1.7 mg/dL (1.6-2.6) 10/08/17 05:09 Total Bilirubin 0.5 mg/dL (0.3-1.0) 10/09/17 06:30 Direct Bilirubin 0.1 mg/dL (0.0-0.2) 10/07/17 12:02 Indirect Bilirubin 0.4 mg/dL (0.0-1.2) 10/07/17 12:02 AST 6 Units/L (13-39) L 10/09/17 06:30 ALT 10 Units/L (7-52) 10/09/17 06:30 Alkaline Phosphatase 100 Units/L (34-104) 10/09/17 06:30 Troponin I < 0.03 ng/mL (< 0.04) 10/08/17 12:20 Serum Total Protein 5.3 g/dL (6.4-8.9) L 10/09/17 06:30 Albumin 3.4 g/dL (3.5-5.7) L 10/09/17 06:30 Globulin 1.9 g/dL (2.4-3.5) L 10/09/17 06:30 Albumin/Globulin Ratio 1.8 (1.1-2.2) 10/09/17 06:30 Triglycerides 144 mg/dL (< 150) 10/08/17 05:09 Cholesterol 194 mg/dL (< 200) 10/08/17 05:09 LDL Cholesterol, Calc 127 mg/dL (0-99) H 10/08/17 05:09 VLDL Cholesterol, Calc 29 mg/dL (< 31) 10/08/17 05:09 HDL Cholesterol 38 mg/dL (40-59) L 10/08/17 05:09 Cholesterol/HDL Ratio 5.1 (0-4.9) H 10/08/17 05:09 TSH 4.096 mcIU/mL (0.340-5.600) 10/08/17 05:09 Free T4 0.97 ng/dl (0.70-2.00) 10/08/17 05:09 Urine Color Yellow (Yellow) 10/07/17 12:17 Urine Clarity Clear (Clear) 10/07/17 12:17 Urine pH 6.0 pH Units (5.0-8.0) 10/07/17 12:17 Ur Specific [place] 1.011 (1.010-1.025) 10/07/17 12:17 Urine Protein Negative mg/dL (Neg-Trace) 10/07/17 12:17 Urine Glucose (UA) Normal mg/dL (Normal) 10/07/17 12:17 Urine Ketones Negative mg/dL (Negative) 10/07/17 12:17 Urine Blood Negative (Negative) 10/07/17 12:17 Urine Nitrite Negative (Negative) 10/07/17 12:17 Urine Bilirubin Negative (Negative) 10/07/17 12:17 Urine Urobilinogen Normal mg/dL (Normal) 10/07/17 12:17 Ur Leukocyte Esterase Negative (Negative) 10/07/17 12:17 Salicylates < 5.0 mg/dL (15.0-30.0) L 10/07/17 12:02 Urine Opiates Screen Negative ng/mL (Emxsfv=386) 10/07/17 12:17 Acetaminophen < 1.0 mcg/mL (10-30) L 10/07/17 12:02 Ur Barbiturates Screen Negative ng/mL (Vosnmc=736) 10/07/17 12:17 Ur Phencyclidine Scrn Negative ng/mL (Cutoff=25) 10/07/17 12:17 Ur Amphetamines Screen Negative ng/mL (Cmfxun=5691) 10/07/17 12:17 U Benzodiazepines Scrn Negative ng/mL (Fdhesx=199) 10/07/17 12:17 Urine Cocaine Screen Negative ng/mL (Cutoff= 300) 10/07/17 12:17 U Marijuana (THC) Screen Positive ng/mL (Cutoff = 50) H 10/07/17 12:17 Ethyl Alcohol < 10 mg/dL (0-10) 10/07/17 12:02 Specimen Rejected Hemolyzed 10/09/17 05:03 - Impressions Impressions Chest X-Ray 10/08/17 14:00 IMPRESSION: Stable negative chest. D/ / Jacy Vang MD / Jacy Vang MD Interpreting Provider: Jacy Vang MD Consult Discharge Plan - Plan Referrals: Johnie Farley MD [Primary Care Provider] -
[2017-10-09 15:34] VITALS: BP 156/97
--- NOTE | 2017-10-09 17:34 | Discharge Summary ---
Date of Encounter: 10/09/17 Time of Encounter: 10:00 - Discharge Diagnosis (1) Hypokalemia Priority: Secondary Status: Resolved (2) Overdose Priority: Primary Status: Chronic Comments: Acute on chronic. Patient's boyfriend and patient tell different stories about what and how much patient took. Unclear at this time. Patient reports that she took 10-20 gabapentin. Lactic was within normal limits. Today boyfriend states that patient cannot be trusted to tell what she actually took. I have not ordered gabapentin or baclofen during this stay. I spoke with patient's primary care provider this evening who agrees the patient has drug seeking as well as overdose tendencies. Patient was pink slipped due to uncertainty if this was an intentional or accidental overdose. Psychiatry has recommended predischarge her to follow-up with outpatient psych. They also recommended blister packs for home delivery of medications or some other methods that might be useful to keep her from becoming confused and over taking her medications. The pharmacy in this [facility] that does that is closed at this point. Patient has become agitated and adamant that she wants to go home, pink slip has been revoked and I cannot keep her here. I have spoken with the primary nurse and suggested that she put him in note for health and social care teacher to work on packaging patient's medication differently tomorrow. Qualifiers: Encounter type: initial encounter Injury intent: undetermined intent Qualified Code(s): T50.904A - Poisoning by unspecified drugs, medicaments and biological substances, undetermined, initial encounter (3) Anemia Priority: Secondary Status: Chronic Comments: Patient with chronic anemia. Stable. Does not require transfusion at this time. Follow-up with primary care. Qualifiers: Anemia type: unspecified type Qualified Code(s): D64.9 - Anemia, unspecified (4) CHF (congestive heart failure) Priority: Secondary Status: Chronic Comments: No acute exacerbation. Stable. Qualifiers: Heart failure type: unspecified Heart failure chronicity: chronic Qualified Code(s): I50.9 - Heart failure, unspecified (5) HLD (hyperlipidemia) Priority: Secondary Status: Chronic Comments: Chronic. Continue home medication. Qualifiers: Hyperlipidemia type: pure hypercholesterolemia Qualified Code(s): E78.00 - Pure hypercholesterolemia, unspecified; E78.0 - Pure hypercholesterolemia (6) Hypothyroid Priority: Secondary Status: Chronic Comments: Chronic. Continue home medications. Qualifiers: Hypothyroidism type: unspecified Qualified Code(s): E03.9 - Hypothyroidism , unspecified (7) Morbid obesity with BMI of 40.0-44.9, adult Priority: Secondary Status: Chronic Comments: Chronic. Lifestyle modifications. (8) Suicidal behavior Priority: Secondary Status: Chronic Comments: Patient denies any suicidal behavior. She was pink slipped initially due to and certainly if overdose was intentional or accidental. She has been cleared by psychiatry for discharge. I discussed with social work instructor patient's frequent overdoses and confusion, as well as drug-seeking behavior in the illegal marijuana use. building construction ironworker spoke with patient today. Patient does not accept home health care and does not answer the door when they calmed. Patient does not qualify for [facility] clinic due to her being incontinent and medically compromised, more than they can handle. Patient does not qualify for inpatient psychiatric due to not being actively suicidal and her overdoses appear to be unintentional per social work instructor. Physical therapy and occupational therapy consultations were in patient qualified for SNF. Since her pink slip has been revoked by psychiatry, patient states that she wants to go home and I unable to keep her. She denies any suicidal ideations. Patient did tell me today that she was not trying to kill herself and that she took the medications because she wanted to sleep. When I asked her why she wanted to sleep and was unable to sleep, she states "he (boyfriend) fell asleep before me and it pissed me off." Patient will be discharged, she has multiple connections to mental health resources in the community, she may follow up with any of those that she chooses. Qualifiers: Attempted self-injury: with attempted self-injury Qualified Code(s): T14.91XA - Suicide attempt, initial encounter (9) DVT prophylaxis Priority: Secondary Status: Acute - Discharge Medications Home Medications: Atorvastatin [Lipitor] 40 mg PO HS 04/10/15 [History] Sertraline [Zoloft] 100 mg PO DAILY 04/10/15 [History] Levothyroxine [Synthroid] 112 mcg PO QAM 09/01/16 [History] Potassium Chloride [Klor-Con 10] 20 meq PO BID 09/01/16 [History] Mirabegron [Myrbetriq] 50 mg PO DAILY 06/29/17 [History] ALPRAZolam [Xanax 1 MG Tablet] 1 mg PO BID PRN 07/14/17 [History] Furosemide [Lasix] 40 mg PO DAILY #30 07/17/17 [Rx] Pantoprazole Sodium [Protonix] 40 mg PO BID #60 tablet.dr 07/17/17 [Rx] BuPROPion SR (12 HR) [Wellbutrin SR] 150 mg PO BID 07/26/17 [History] Ipratropium/Albuterol Neb [Duoneb] 3 ml IH Q6HR PRN 07/26/17 [History] Oxybutynin [Ditropan] 5 mg PO DAILY #30 tablet 08/16/17 [Rx] Amitriptyline [Elavil] 25 mg PO HS 09/19/17 [History] Buspirone HCl [Buspar] 10 mg PO BID 09/19/17 [History] Famotidine [Heartburn Prevention] 20 mg PO DAILY 09/19/17 [History] Fluticasone Propionate [Flovent Hfa] 1 puff IH BID 09/19/17 [History] Ibuprofen [Motrin] 600 mg PO TID 09/19/17 [History] Meloxicam [Mobic] 15 mg PO DAILY 09/19/17 [History] Nystatin POWDER [Nystop] 1 appl TP BID 09/19/17 [History] OxyCODONE/APAP 5/325 [Percocet 5/325 MG] 1 tab PO QID PRN 09/19/17 [History] Quetiapine Fumarate [Seroquel] 75 mg PO HS 09/19/17 [History] Diphenoxylate/Atropine [Lomotil 2.5 mg/0.025 mg] 1 tab PO QID PRN 09/23/17 [ History] Melatonin/Pyridoxine HCl (B6) [Melatonin 5 mg Tablet] 5 mg PO HS PRN 09/23/17 [ History] Beclomethasone Diprop 80mcg [QVAR 80 mcg] 1 puff IH BIDR puff 10/09/17 [Rx] Allergies/Adverse Reactions: 3 Allergy/AdvReac Type Severity Reaction Status Date / Time No Known Allergies Allergy Verified 10/04/17 15:55 Date of admission: 10/07/17 18:57 Primary care physician: Johnie Farley MD Consults: 10/07/17 19:10 Consult to Psychiatry [CONS] Routine Consulting Provider: Renate Oreilly Reason for Consult: Patient is being admitted for OD on Gabapentin (SO states she took 600 mg, pt states she took 10-20 pills) and Baclofen (SO states 40 mg). Hx of OD and SI. Unclear if pt has SI d/t AMS presently. Call Completed: Yes 10/09/17 12:32 Consult to Physical Therapy [CONS] Routine Comment: Evaluate, develop and implement POC Reason for Consult: Possible placement 10/09/17 12:33 Consult to Occupational Therapy [CONS] Routine Comment: Evaluate, develop and implement POC Reason for Consult: Possible placement Discharging clinician: Tamara Wellington Anticipated date of discharge: 10/09/17 - Patient Status Disposition: Home, Self-Care Condition: Good Functional capacity at discharge: independent ambulation Overall status at discharge: patient is back to baseline - Discharge Instructions Follow Up With: Johnie Farley MD [Primary Care Provider] - Additional Instructions: Stop your baclofen and gabapentin. Stop taking your medications incorrectly Follow up with your PCP in the next week to 10 days for a recheck. Return to the ER as needed for any other problems or concerns. - Diet and Activity Activity: increase activity as tolerated Diet: advance to your usual diet Hospital course: Ms. Copeland is a 57 year old female with hypertension, chronic overdose, right lower extremity fracture, depression, congestive heart failure, drug seeking behavior. Patient presented to the emergency department with what is now allegedly an unintentional overdose. Patient states that she was upset because her boyfriend went to sleep before she did say she took extra pills. It is unclear exactly what she talk as her story differs from her boyfriend. I have spoken with primary care provider, he is aware of her behaviors. Patient was pink slipped and initially, it has been revoked by psychiatry. Labs are stable and within normal limits. Vital signs are stable. Psychiatry has recommended that patient be sent home with blister packs or home delivery or some other method to help patient take medications so she is not confused. The pharmacy in [facility] that does that is closed at this time. Primary nurse is to speak with social work instructor or leave a note for her regarding trying to attempt this tomorrow. Patient is upset, wants to leave, since pink slip is no longer valid , she is to be discharged. - Time Spent with Patient Total time spent providing and/or coordinating discharge services: Less than 30 minutes - Constitutional Vitals: Temp Pulse Resp BP Pulse Ox 97.9 F 78 17 156/97 97 10/09/17 15:00 10/09/17 15:00 10/09/17 15:00 10/09/17 15:00 10/09/17 15:00 General appearance: Present: A&O X 1, mild distress (Anxiety), morbidly obese. Absent: answers questions appropriately - Head Head exam: Present: atraumatic, normal inspection, normocephalic - Eye Eye exam: Present: normal appearance, conjuntiva pink, sclera anicteric - Neck Neck exam general surgery: Present: supple, trachea midline. Absent: lymphadenopathy - Respiratory Respiratory exam: Present: CTAB. Absent: accessory muscle use, chest wall tenderness, rales, rhonchi, wheezes - Cardiovascular Cardiovascular exam: Present: RRR, +S1, +S2. Absent: diastolic murmur, gallop, rubs, systolic murmur - GI/Abdominal GI/Abdominal exam: Present: normal bowel sounds, soft. Absent: distended, hepatomegaly, tenderness - Extremities Exam Extremities exam: Present: normal inspection, warm, radial pulses palpable and symmetrical. Absent: calf tenderness, cyanotic, pedal edema, tenderness - Neurological Exam Neurological exam: Present: alert, oriented X3, no focal deficits. Absent: facial droop, speech deficit - Skin Skin exam: Present: dry, intact, normal color, warm. Absent: rash
--- NOTE | 2017-10-13 07:58 | Electrocardiograph Report ---
[place] [id number] Test Date: 2017-10-07 Pat Name: Connie Copeland Department: [id number] Room: 3B65 Gender: F Record Press Operator: CARMITA : 1960 Requested By: Nestor James Order Number: [id number] Reading MD: Javi Matta DO Measurements Intervals Olive Rate: 61 P: 48 WA: 191 QRS: -15 QRSD: 117 T: 1 QT: 421 QTc: 424 Interpretive Statements SINUS RHYTHM LOW QRS VOLTAGE IN PRECORDIAL LEADS INCOMPLETE RIGHT BUNDLE BRANCH BLOCK Electronically Signed On 10-13-2017 7:57:07 EST by Javi Matta DO
== END 2017-10-09 18:40 | disposition home or self-care (01) | DRG 918 ==
LOC: EMEROO 11:24 → 3BNU 11:24
PROVIDERS: ADMIT Internal Medicine; ATTEND Registered Nurse

== ENCOUNTER 2017-10-13 11:18 | Inpatient (IN) ==
--- NOTE | 2017-10-13 11:51 | History & Physical Report ---
Date of Encounter: 10/13/17 Time of Encounter: 11:51 24 Hour HP Update - Instructions Instructions: If the History and Physical is less than 30 days old and was completed prior to A.M. admission and or procedure and has NOT been updated on calendar day of procedure please complete this update prior to performing procedure. - Update Patient reports changes in Medical Condition: No Changes in examination, assessment, or condition: No Changes in Medication: No Preop tests/diagnostics Reviewed: Yes Surgery Remains Indicated: Yes Consent for Planned Operative Procedure(s) Verified: Yes - Pre-Operative Checklist Preoperative Checklist Indicated: No Prophylactic Antibiotic Ordered: Yes Is VTE Prophylaxis Indicated?: Yes
[2017-10-13] MEDS ORDERED: Albuterol 2.5 MG/3 ML NEBULIZER IH ONE (11:55)
[2017-10-13] MEDS ORDERED: CeFAZolin Syr 2,000MG/20 ML 2,000 MG/20 ML SYRINGE IVPB ONE (11:55)
[2017-10-13] MEDS ORDERED: Ringers Solution, Lactated 1,000 ML IVC SCH ×2 (12:00→16:11)
[2017-10-13] MEDS ORDERED: *HR* FentaNYL (PF) 100 MCG/2 ML VIAL ONE (12:01)
[2017-10-13] MEDS ORDERED: *HR* Midazolam HCl 5 MG/5 ML VIAL IVP ONE (12:01)
[2017-10-13] MEDS ORDERED: *HR* Propofol 200 MG/20 ML VIAL IVP ONE (12:01)
[2017-10-13] MEDS ORDERED: EPHEDrine 50 MG/ML VIAL ONE (12:09)
[2017-10-13] MEDS ORDERED: Dexamethasone 4 MG/ML VIAL ONE (12:11)
[2017-10-13] MEDS ORDERED: Ondansetron 4 MG/2 ML VIAL ONE (12:11)
[2017-10-13] MEDS ORDERED: Acetaminophen IV 1,000 MG/100 ML INFUS..BTL IVPB ONE (12:21)
--- NOTE | 2017-10-13 12:21 | Anesthesia Evaluation PreOp ---
Date of Encounter: 10/13/17 Time of Encounter: 12:18 - Past History Planned Operation: T TKR Cardiac History: HTN, Hyperlipidemia Pulmonary History: Smoker (smoked today), COPD, IVAN Dx (on cpap) POLITICAL ORGANIZER History: Other (multiple sclerosis last exacerbation 3yrs ago, ADHD, depression) Other Medical History: Thyroid (hypothyroidism), GERD (asymptomatic today) Anesthesia History: No Prior Anesthetic Complications, Past Anesthesia Alcohol Use: none Drug use: marijuana, prescription drug abuse Medications and Allergies Atorvastatin [Lipitor] 40 mg PO HS 04/10/15 [History] Sertraline [Zoloft] 100 mg PO DAILY 04/10/15 [History] Levothyroxine [Synthroid] 112 mcg PO QAM 09/01/16 [History] Potassium Chloride [Klor-Con 10] 20 meq PO BID 09/01/16 [History] Mirabegron [Myrbetriq] 50 mg PO DAILY 06/29/17 [History] ALPRAZolam [Xanax 1 MG Tablet] 1 mg PO BID PRN 07/14/17 [History] Furosemide [Lasix] 40 mg PO DAILY #30 07/17/17 [Rx] Pantoprazole Sodium [Protonix] 40 mg PO BID #60 tablet.dr 07/17/17 [Rx] BuPROPion SR (12 HR) [Wellbutrin SR] 150 mg PO BID 07/26/17 [History] Ipratropium/Albuterol Neb [Duoneb] 3 ml IH Q6HR PRN 07/26/17 [History] Oxybutynin [Ditropan] 5 mg PO DAILY #30 tablet 08/16/17 [Rx] Amitriptyline [Elavil] 25 mg PO HS 09/19/17 [History] Buspirone HCl [Buspar] 10 mg PO BID 09/19/17 [History] Famotidine [Heartburn Prevention] 20 mg PO DAILY 09/19/17 [History] Fluticasone Propionate [Flovent Hfa] 1 puff IH BID 09/19/17 [History] Ibuprofen [Motrin] 600 mg PO TID 09/19/17 [History] Meloxicam [Mobic] 15 mg PO DAILY 09/19/17 [History] Nystatin POWDER [Nystop] 1 appl TP BID 09/19/17 [History] OxyCODONE/APAP 5/325 [Percocet 5/325 MG] 1 tab PO QID PRN 09/19/17 [History] Quetiapine Fumarate [Seroquel] 75 mg PO HS 09/19/17 [History] Diphenoxylate/Atropine [Lomotil 2.5 mg/0.025 mg] 1 tab PO QID PRN 09/23/17 [ History] Melatonin/Pyridoxine HCl (B6) [Melatonin 5 mg Tablet] 5 mg PO HS PRN 09/23/17 [ History] Beclomethasone Diprop 80mcg [QVAR 80 mcg] 1 puff IH BIDR puff 10/09/17 [Rx] 3 Allergy/AdvReac Type Severity Reaction Status Date / Time No Known Allergies Allergy Verified 10/04/17 15:55 - Meds/Allergy Pre-op Review Medications Reviewed: Yes Allergies Reviewed: Yes Beta Blockers on Current Med List: No Anesthesia Results - Imaging EKG: report reviewed (Interpretive Statements SINUS RHYTHM LOW QRS VOLTAGE IN PRECORDIAL LEADS INCOMPLETE RIGHT BUNDLE BRANCH BLOCK Electronically Signed On 7:57:07 EST by Javi Matta DO) Anesthesia Exam Vital Signs/O2 Sat, Most Current Temp Pulse Resp BP Pulse Ox 98.6 F 83 18 109/62 93 10/13/17 12:14 10/13/17 12:14 10/13/17 12:14 10/13/17 12:14 10/13/17 12:14 Height: 1.5m Weight: 104kg NPO (# of Hours): >8 Pain Scale Used: Numeric (1 - 10) - HEENT Pupil (Motor): Pupils equal, EOMI Mallampati: II Teeth: Poor dentition Oral Opening: Greater than 3 - POLITICAL ORGANIZER LOC: Oriented POLITICAL ORGANIZER Motor: Normal RUE, Normal LUE, Normal RLE, Normal LLE, Normal Face POLITICAL ORGANIZER Sensory: Normal: RUE, LUE, RLE, LLE, Face - Cardiac Rhythm: Regular Murmur: None - Pulmonary Breath Sounds: bilateral Clear Respiratory Effort: Symmetrical Anesthesia Assess/Plan ASA Score: 3 Modified Ishmael Scale for Level of Consciousness: Cooperative, oriented, and tranquil Anesthetic Plan: General (r/b/a discussed, qeustions answered, consent obtained) , Regional (R femoral nn block, no spinal due to risk of multiple sclerosis) Monitoring Plan: Standard Monitors Recovery Plan: PACU
--- NOTE | 2017-10-13 12:46 | Discharge Summary ---
Date of Encounter: 10/16/17 Time of Encounter: 06:38 - Discharge Diagnosis (1) Arthritis of right knee Priority: Primary Status: Chronic (2) Status post total right knee replacement Priority: Primary Status: Acute (3) Morbid obesity with BMI of 40.0-44.9, adult Priority: Secondary Status: Chronic (4) Anal cancer Priority: Secondary Status: Chronic (5) Multiple sclerosis Priority: Secondary Status: Chronic (6) Hypothyroid Priority: Secondary Status: Chronic Qualifiers: Hypothyroidism type: unspecified Qualified Code(s): E03.9 - Hypothyroidism , unspecified (7) Hyperlipemia Priority: Secondary Status: Chronic Qualifiers: Hyperlipidemia type: unspecified Qualified Code(s): E78.5 - Hyperlipidemia , unspecified (8) Mood disorder Priority: Secondary Status: Chronic (9) CHF (congestive heart failure) Priority: Secondary Status: Chronic Qualifiers: Heart failure type: unspecified Heart failure chronicity: unspecified Qualified Code(s): I50.9 - Heart failure, unspecified (10) Bipolar disorder Priority: Secondary Status: Chronic Qualifiers: Active/Remission status: remission status unspecified Qualified Code(s): F31.9 - Bipolar disorder, unspecified (11) Schizophrenia Priority: Secondary Status: Chronic Qualifiers: Schizophrenia type: unspecified Qualified Code(s): F20.9 - Schizophrenia, unspecified (12) Dislocation of right knee Priority: Primary Status: Chronic Qualifiers: Encounter type: sequela Qualified Code(s): S83.104S - Unspecified dislocation of right knee, sequela (13) Acute blood loss anemia Priority: Primary Status: Acute - Discharge Medications Home Medications: Atorvastatin [Lipitor] 40 mg PO HS 04/10/15 [History] Sertraline [Zoloft] 100 mg PO DAILY 04/10/15 [History] Levothyroxine [Synthroid] 112 mcg PO QAM 09/01/16 [History] Potassium Chloride [Klor-Con 10] 20 meq PO BID 09/01/16 [History] Mirabegron [Myrbetriq] 50 mg PO DAILY 06/29/17 [History] ALPRAZolam [Xanax 1 MG Tablet] 1 mg PO BID PRN 07/14/17 [History] Furosemide [Lasix] 40 mg PO DAILY #30 07/17/17 [Rx] Pantoprazole Sodium [Protonix] 40 mg PO BID #60 tablet. 07/17/17 [Rx] BuPROPion SR (12 HR) [Wellbutrin SR] 150 mg PO BID 07/26/17 [History] Ipratropium/Albuterol Neb [Duoneb] 3 ml IH Q6HR PRN 07/26/17 [History] Oxybutynin [Ditropan] 5 mg PO DAILY #30 tablet 08/16/17 [Rx] Amitriptyline [Elavil] 25 mg PO HS 09/19/17 [History] Buspirone HCl [Buspar] 10 mg PO BID 09/19/17 [History] Famotidine [Heartburn Prevention] 20 mg PO DAILY 09/19/17 [History] Fluticasone Propionate [Flovent Hfa] 1 puff IH BID 09/19/17 [History] Nystatin POWDER [Nystop] 1 appl TP BID 09/19/17 [History] Quetiapine Fumarate [Seroquel] 75 mg PO HS 09/19/17 [History] Diphenoxylate/Atropine [Lomotil 2.5 mg/0.025 mg] 1 tab PO QID PRN 09/23/17 [ History] Melatonin/Pyridoxine HCl (B6) [Melatonin 5 mg Tablet] 5 mg PO HS PRN 09/23/17 [ History] Beclomethasone Diprop 80mcg [QVAR 80 mcg] 1 puff IH BIDR puff 10/09/17 [Rx] Aspirin Enteric Coated [Aspirin EC] 325 mg PO BID #20 tablet. 10/13/17 [Rx] OxyCODONE/APAP 5/325 [Percocet 5/325 MG] 1 tab PO QID PRN 5 Days #20 tablet [Rx] Allergies/Adverse Reactions: 3 Allergy/AdvReac Type Severity Reaction Status Date / Time No Known Allergies Allergy Verified 10/13/17 13:08 Primary care physician: Johnie Farley MD - Patient Status Disposition: Home Health Service Condition: Good Functional capacity at discharge: uses cane/walker Overall status at discharge: patient is progressing back to baseline - Discharge Instructions Follow Up With: Johnie Farley MD [Primary Care Provider] - - Hospital Course Hospital course: Ms. Copeland is a 57 year old female Status post right total knee replacement Patient received 2 units of blood for acute blood loss anemia discharge hemoglobin of 9.1 The patient had an uneventful postoperative course. They received antibiotics and physical therapy and were discharged in stable condition. There will follow -up in the office in 2 weeks. - Time Spent with Patient Total time spent providing and/or coordinating discharge services:
[2017-10-13] MEDS ORDERED: Ethanol\\Acetic Acid\\Na Ace\\Ben 1,000 ML IRRIG.SOLN IR ONE (12:47)
[2017-10-13] MEDS ORDERED: *HR* Ropivacaine/PF 0.5% 20 ML VIAL ONE (13:10)
[2017-10-13] MEDS ORDERED: Bupivacaine/Clonidine Syringe 1 EACH SYRINGE ONE (13:15)
--- NOTE | 2017-10-13 14:30 | Anesthesia Procedures ---
Date of Encounter: 10/13/17 Time of Encounter: 13:15 Procedures: Anesthesia - Nerve Block Procedure Date: 10/13/17 Time: 13:15 Allergies/Adv Reactions: nka Pre-op Diagnosis: Right Knee arthritis Surgical Procedure: Right total knee arthroplasty Checklist: Correct Patient Identifier, Correct procedure Correct side: Right Blood Thinner: No Monitor Applied: EKG, BP, Pulse Oximetry Supplemental Oxygen via Nasal Cannula (L/min): 2 Sedation: Versed (mg): 3 Sedation: Fentanyl (mcg): 100 Indication: Post Op Analgesia Pre-op Neuro Deficits: No Block Type: Femoral, Other (Ipack) Catheter placed: No Sterile Technique: Yes Ultrasound used: Yes Anatomy identified: Yes Visual spread of Local: Yes Neuro Stimulation: Yes (for femoral nerve block only) Nerve Stimulator Range: 0.2 - 0.4 mA Blood on Needle Aspiration: No Smooth Injection of Local: Yes Pain with Injection of Local: No Prep: Chlorhexadine Needle: 22 x 50 mm Stimuplex (echogenic needle for femoral nerve block), 21 x 100 mm Stimuplex (echogenic needle for IPACK) Local: 0.25% Bupivicaine w/Clonidine 20 mcg/cc (used for IPACK), Ropivacaine ( 0.5% used for femoral nerve block 30 ml), Other (decadron 10 mg used in femoral nerve block ropivicaine) Volume (cc): total of 50 ml local anes Number of Attempts: 1 Complications: None/effective block Vitals: vss throughout proocedure
[2017-10-13] MEDS ORDERED: Dexamethasone 4 MG/ML VIAL IVP ONE (15:31)
[2017-10-13] MEDS ORDERED: *HR* OxyCODONE Immed Rel 5 MG TABLET PO PRN ×2 (15:31→16:11)
[2017-10-13] MEDS ORDERED: *HR* HYDROmorphone 2 MG TABLET PO PRN (15:31)
[2017-10-13] MEDS ORDERED: *HR* Promethazine 25 MG/ML VIAL IVP PRN (15:31)
[2017-10-13] MEDS ORDERED: Ondansetron 4 MG/2 ML VIAL IVP ONE (15:31)
[2017-10-13] MEDS: MORPHINE SUL Oral CONC 10 MG/0.5 ML ORAL.SYG SL PRN ×2 (15:42→15:51)
--- NOTE | 2017-10-13 15:42 | Orthopedic Operative Note ---
Date of procedure: 10/13/17 Pre-op diagnosis: Right knee arthritis right knee dislocation Post-op diagnosis: same Procedure: Procedure: Right Total knee replacement Estimated blood loss: 400 cc Hardware: Metal and polyethylene replacement: Biomet Femur: 65, 16 x 80 Tibia: 71, 14 x 80 Emely insert: 16 Patella: 34 Exam Under anesthesia: Patient with a grossly unstable right knee with complete dislocation of. Relation to patella with the knee in extension. Procedural Notes: Grade 4 arthritic changes all 3 compartments severe deformity of both medial and lateral tibial condyles. Operative procedure: The patient was brought to the operating room and placed on the operating room table. After general anesthesia was administered the operative knee was examined. Findings were noted in the exam under anesthesia. The operative extremity was prepped and draped in sterile surgical fashion. The patient received IV antibiotics prior to skin incision. A standard midline incision was made centered over the patella. The incision was made through the skin and subcutaneous tissue. A medial parapatellar tendon approach was performed. Care was taken to preserve tissue along the medial aspect of the patella. And to protect the patella tendon. The deep MCL was released off the medial tibia. The infra patella fat pad was excised. Knee was brought into flexion. Patient's knee easily sublux in and out of place. Patient noted to have grade 4 arthritic changes all 3 compartments as well as severe chronic deformity of both the medial and lateral posterior aspects of the tibial plateaus. The entry hole was made for the intramedullary femoral guide. The guide was seated in 6 degrees of valgus. Anterior cut was made followed by the distal cut. The PCL the medial and the lateral menisci were excised. The tibia was subluxed forward. The entry hole was made for the intramedullary tibial guide. Guide was seated to resect 2 mm off the more abnormal side. The knee was brought into flexion the distal femur was sized to a 65. The femur was first reamed to a 16x80 The femoral guide was seated, the anterior cut was made followed by the posterior condylar cut, followed by the chamfer cuts. The finishing guide was seated the box cut was made. Trial had good fit and fixation The tibia was sized to a an 71 The tibia was first reamed 14x80. Trial reduction revealed full extension no varus valgus instability with the appropriate 16 insert. The patella was everted and cut was made at the level of the insertion of the quadriceps and patella tendon. The patella was sized to a 34 the guide was seated and the lug holes are drilled. Trial reduction revealed excellent patella tracking. All trial components were removed all bony surfaces were irrigated. Components were assembled on the back table. The femur was cemented first followed by the tibia. The 16 Emely was seated and secured. The knee was brought into full extension. The patella was cemented and held in place with the patellar holding clamp. After the cement had hardened, the knee sat for 2 minutes with a antibacterial solution. The knee was then irrigated out with 2 L of pulse irrigation. The extensor mechanism was closed with #2 FiberWire suture and #2 PDS suture. The subcutaneous tissue was then irrigated and closed deep with #1 PDS suture superficially with 0 PDS suture and skin was closed with skin rebekah The patient was then placed in a sterile dressing and a postoperative brace extubated and transferred to recovery room in stable condition. Anesthesia: GETA Surgeon: Cesar Luong Was there an assistant front end manager present: No Estimated blood loss (cc): 400 Condition: stable Disposition: PACU
[2017-10-13 15:44] LABS: Hematocrit 31.3 % (35.3-44.9); Hemoglobin 10.1 g/dL (11.5-15.4)
[2017-10-13] MEDS ORDERED: Naloxone 0.4 MG/ML INJ IVP PRN (16:11)
[2017-10-13] MEDS ORDERED: MOM Conc 10 ML UD.LIQ PO PRN (16:11)
[2017-10-13] MEDS ORDERED: Ondansetron 4 MG/2 ML VIAL IVP PRN (16:11)
[2017-10-13] MEDS ORDERED: CeFAZolin Premix DUPLEX 2,000 MG/50 ML BAG IVPB SCH (16:11)
[2017-10-13] MEDS ORDERED: Sennosides 8.6 MG TABLET PO PRN (16:11)
--- NOTE | 2017-10-13 16:26 | Anesthesia Evaluation Post Op ---
Date of Encounter: 10/13/17 Time of Encounter: 16:00 - Vital Signs Vital Signs: Vital Signs/O2 Sat, Most Current Temp Pulse Resp BP Pulse Ox 98.7 F 64 16 121/79 100 10/13/17 15:54 10/13/17 15:54 10/13/17 15:54 10/13/17 15:54 10/13/17 15:54 - Lungs Lungs: Clear Ascult./Percussion - Airway Airway: Non-obstructed - Cardiovascular Regular Rate - Mental Status Mental Status: Alert & Oriented, Answers Appropriately - Pain Pain Scale: 6 Pain Scale used: Numeric (1 - 10) - Nausea Vomiting Nausea Vomiting: Not Present - Hydration Hydration: Ice chips - Discharge PostOp Status: Transfer Patient to floor
[2017-10-13] MEDS: *HR* OxyCODONE Immed Rel 5 MG TABLET PO PRN ×2 (17:12→21:00)
[2017-10-13] MEDS: *HR* Enoxaparin 30 MG/0.3 ML SYRINGE SQ SCH (17:13)
[2017-10-13] MEDS ORDERED: *HR* Enoxaparin 30 MG/0.3 ML SYRINGE SQ SCH (18:00)
[2017-10-13] MEDS: Temazepam 15 MG CAPSULE PO PRN (21:00)
[2017-10-13] MEDS: CeFAZolin Premix DUPLEX 2,000 MG/50 ML BAG IVPB SCH (21:01)
[2017-10-14] MEDS: *HR* OxyCODONE Immed Rel 5 MG TABLET PO PRN ×6 (01:31→23:34)
[2017-10-14 02:00] LABS: Hematocrit 27.1 % (35.3-44.9); Hemoglobin 8.7 g/dL (11.5-15.4)
[2017-10-14 02:24] LABS: Calcium 8.2 mg/dL (8.6-10.3)
[2017-10-14] MEDS: CeFAZolin Premix DUPLEX 2,000 MG/50 ML BAG IVPB SCH (05:08)
[2017-10-14] MEDS: *HR* Enoxaparin 30 MG/0.3 ML SYRINGE SQ SCH ×2 (05:38→17:48)
--- NOTE | 2017-10-14 07:45 | Orthopedics Progress Note ---
Date of Encounter: 10/14/17 Time of Encounter: 07:44 - Assessment and Plan (1) Arthritis of right knee Current Visit: Yes Status: Chronic (2) Status post total right knee replacement Current Visit: Yes Status: Acute (3) Morbid obesity with BMI of 40.0-44.9, adult Current Visit: Yes Status: Chronic (4) Anal cancer Current Visit: No Status: Chronic (5) Multiple sclerosis Current Visit: No Status: Chronic (6) Hypothyroid Current Visit: No Status: Chronic Qualifiers: Hypothyroidism type: unspecified Qualified Code(s): E03.9 - Hypothyroidism , unspecified (7) Hyperlipemia Current Visit: No Status: Chronic Qualifiers: Hyperlipidemia type: unspecified Qualified Code(s): E78.5 - Hyperlipidemia , unspecified (8) Mood disorder Current Visit: No Status: Chronic (9) CHF (congestive heart failure) Current Visit: No Status: Chronic Qualifiers: Heart failure type: unspecified Heart failure chronicity: unspecified Qualified Code(s): I50.9 - Heart failure, unspecified (10) Bipolar disorder Current Visit: No Status: Chronic Qualifiers: Active/Remission status: remission status unspecified Qualified Code(s): F31.9 - Bipolar disorder, unspecified (11) Schizophrenia Current Visit: No Status: Chronic Qualifiers: Schizophrenia type: unspecified Qualified Code(s): F20.9 - Schizophrenia, unspecified (12) Dislocation of right knee Current Visit: No Status: Chronic Subjective Interval history: Patient was seen this morning doing well without complaints. Afebrile vital signs stable. Operative extremity: Neurovascularly intact Dressing clean dry and intact Calves nontender Assessment and plan: Continue with postoperative care Hematocrit 27 Objective Vital signs: Vital Signs Temp Pulse Resp BP Pulse Ox 10/14/17 07:15 98.4 F 81 16 121/71 97 10/14/17 04:39 98.0 F 77 16 125/73 94 10/14/17 00:13 98.0 F 68 18 133/81 96 10/13/17 19:34 97.6 F 66 16 133/81 96 10/13/17 19:08 97.8 F 70 18 136/78 96 10/13/17 18:33 97.6 F 73 16 147/98 97 10/13/17 17:36 81 16 126/81 96 10/13/17 17:15 98.2 F 69 121/68 98 10/13/17 16:27 97.6 F 69 16 121/76 95 10/13/17 15:54 98.7 F 64 16 121/79 100 10/13/17 15:44 70 14 108/49 100 10/13/17 15:34 71 12 122/85 100 10/13/17 15:24 97.4 F L 78 20 141/87 96 10/13/17 13:12 85 18 133/74 95 10/13/17 12:28 84 18 129/72 96 10/13/17 12:14 98.6 F 83 18 109/62 93 10/13/17 12:02 98.6 F 83 18 109/62 93 Intake and Output 10/13/17 10/13/17 10/14/17 15:59 23:59 07:59 Intake Total 290 / 290 1100 / 1100 Output Total 400 / 400 1200 / 1200 Balance -400 / -400 290 / 290 -100 / -100 Intake: IV Fluids 50 / 50 Ancef Premix DUPLEX 2,000 mg In 50 / 50 50 ml @ 100 mls/hr IVPB Q8H [facility] Rx#:[id number] Oral 240 / 240 1100 / 1100 Output: Urine 1200 / 1200 Estimated Blood Loss 400 / 400 Other: Meal Dinner Percent of Meal Consumed 80% Weight 104.326 kg - Labs CBC & BMP: 10/14/17 01:28 10/14/17 01:28 Labs: Abnormal lab results Hgb 8.7 g/dL (11.5-15.4) L 10/14/17 01:28 Hct 27.1 % (35.3-44.9) L 10/14/17 01:28 Est GFR ( Amer) 57 (> 60) L 10/14/17 01:28 Est GFR (Non-Af Amer) 47 (> 60) L 10/14/17 01:28 Glucose 125 mg/dL (70-105) H 10/14/17 01:28 Calcium 8.2 mg/dL (8.6-10.3) L 10/14/17 01:28 - VTE Documentation of Mechanical Device: Venous foot pump, device Consult Discharge Plan - Plan Referrals: Johnie Farley MD [Primary Care Provider] -
--- NOTE | 2017-10-14 11:38 | Physician Discharge Referral ---
ExtendedCare Referral Info Transfer To: F Provider in Charge: Provider in Charge after Transfer: PCP Institutional Level of Care: Skilled - Diagnosis (1) Arthritis of right knee Priority: Primary Status: Chronic (2) Status post total right knee replacement Priority: Primary Status: Acute (3) Multiple sclerosis Priority: Secondary Status: Chronic (4) Anxiety and depression Priority: Secondary Status: Chronic (5) Dislocation of right knee Priority: Primary Status: Chronic (6) Obstructive sleep apnea Priority: Secondary Status: Chronic (7) CHF (congestive heart failure) Priority: Secondary Status: Chronic (8) HLD (hyperlipidemia) Priority: Secondary Status: Chronic (9) Morbid obesity with BMI of 40.0-44.9, adult Priority: Secondary Status: Chronic Expected Duration of Placement: < 30 days Prognosis: Good Aware of Diagnosis: Patient Aware of Prognosis: Patient - Transfer Medications Home Medications: Atorvastatin [Lipitor] 40 mg PO HS 04/10/15 [History] Sertraline [Zoloft] 100 mg PO DAILY 04/10/15 [History] Levothyroxine [Synthroid] 112 mcg PO QAM 09/01/16 [History] Potassium Chloride [Klor-Con 10] 20 meq PO BID 09/01/16 [History] Mirabegron [Myrbetriq] 50 mg PO DAILY 06/29/17 [History] ALPRAZolam [Xanax 1 MG Tablet] 1 mg PO BID PRN 07/14/17 [History] Furosemide [Lasix] 40 mg PO DAILY #30 07/17/17 [Rx] Pantoprazole Sodium [Protonix] 40 mg PO BID #60 tablet. 07/17/17 [Rx] BuPROPion SR (12 HR) [Wellbutrin SR] 150 mg PO BID 07/26/17 [History] Ipratropium/Albuterol Neb [Duoneb] 3 ml IH Q6HR PRN 07/26/17 [History] Oxybutynin [Ditropan] 5 mg PO DAILY #30 tablet 08/16/17 [Rx] Amitriptyline [Elavil] 25 mg PO HS 09/19/17 [History] Buspirone HCl [Buspar] 10 mg PO BID 09/19/17 [History] Famotidine [Heartburn Prevention] 20 mg PO DAILY 09/19/17 [History] Fluticasone Propionate [Flovent Hfa] 1 puff IH BID 09/19/17 [History] Nystatin POWDER [Nystop] 1 appl TP BID 09/19/17 [History] Quetiapine Fumarate [Seroquel] 75 mg PO HS 09/19/17 [History] Diphenoxylate/Atropine [Lomotil 2.5 mg/0.025 mg] 1 tab PO QID PRN 09/23/17 [ History] Melatonin/Pyridoxine HCl (B6) [Melatonin 5 mg Tablet] 5 mg PO HS PRN 09/23/17 [ History] Beclomethasone Diprop 80mcg [QVAR 80 mcg] 1 puff IH BIDR puff 10/09/17 [Rx] Aspirin Enteric Coated [Aspirin EC] 325 mg PO BID #20 tablet. 10/13/17 [Rx] OxyCODONE/APAP 5/325 [Percocet 5/325 MG] 1 tab PO QID PRN 5 Days #20 tablet [Rx] Allergies/Adverse Reactions: 3 Allergy/AdvReac Type Severity Reaction Status Date / Time No Known Allergies Allergy Verified 10/13/17 13:08 - Respiratory Orders None Smoking Cessation: Smoking cessation has been advised. For more information, call the [employer] Tobacco Quit Line at 5-525-UPXW-NOW. - Ancillary Orders May use pressure relief devices daily prn, May go on SHAKIRA w/family/respon republican w /meds at nurse discretion PRN, May consult with Dentist, Slubber Hand, Packager Head PRN - Mobility Orders Ambulate - Rehabiliation Orders Rehab Potential: Good Rehab Orders: ROM Exercises, Evaluation for Physical Therapy, Evaluation for Occupational Therapy Other: Opsite dressing, leave intact until first post-operative visit. If dressing becomes >50% saturated, contact office, remove dressing and place appropriate dressing in its place. Do not allow for dressing to get wet. [place]/Zipline dressing in place, plan to remove at POD#14-16. PT: Total Joint Precautions x 6 weeks Apply ICE/cold therapy wrap 3-6x/day for 20 minutes at a time. Encourage ambulation throughout the day and incentive spirometer 10x/hour. Elevate affected extremity above heart as tolerated. Brace: Knee immobilizer at night until first post-operative appointment. - Treatments Skin tear care topically daily PRN per policy CERTIFICATION: I certify that the transfer of the above named patient to an Extended Care Facility is necessary for the continuing treatment of the diagnosis listed. The above information is true and accurate reflection of patient's current condition. Confidential - Redisclosure prohibited without a patient's written consent.
[2017-10-15] MEDS: Temazepam 15 MG CAPSULE PO PRN (01:17)
[2017-10-15] MEDS: *HR* OxyCODONE Immed Rel 5 MG TABLET PO PRN ×5 (03:13→19:33)
[2017-10-15 05:07] LABS: Hematocrit 21.9 % (35.3-44.9); Hemoglobin 7.2 g/dL (11.5-15.4)
[2017-10-15 05:20] LABS: BUN/Creatinine Ratio 7 (6-26); Blood Urea Nitrogen 6 mg/dL (6-20); Calcium 8.1 mg/dL (8.6-10.3); Carbon Dioxide 28 mEq/L (23-29); Chloride 101 mEq/L (98-107); Glucose 108 mg/dL (70-105); Osmolality,Calculated 276 (280-300); Potassium 3.2 mEq/L (3.5-5.1); Sodium 134 mEq/L (136-145); eGFR For Non-African Americans > 60 (> 60)
[2017-10-15] MEDS: *HR* Enoxaparin 30 MG/0.3 ML SYRINGE SQ SCH ×2 (06:28→17:16)
[2017-10-15] MEDS ORDERED: Ipratropium/Albuterol Neb 3 ML IH PRN (06:37)
[2017-10-15] MEDS: BuPROPion SR (12 HR) 150 MG TABLET PO SCH ×2 (07:52→21:44)
[2017-10-15] MEDS: Famotidine 20 MG TABLET PO SCH (07:52)
[2017-10-15] MEDS: Furosemide 20 MG TABLET PO SCH (07:52)
[2017-10-15] MEDS: [Myrbetriq] 50 MG PO SCH (07:56)
[2017-10-15] MEDS ORDERED: NON-FORMULARY MEDICATION 1 EACH EACH (Fluticasone Propionate [Flovent Hfa] 1 PUFF) IH SCH (09:00)
[2017-10-15] MEDS ORDERED: 0.9 % Sodium Chloride 250 ML ONE ×2 (10:11→15:48)
[2017-10-15] MEDS ORDERED: Furosemide 20 MG/2 ML VIAL IVP PRN (14:03)
--- NOTE | 2017-10-15 17:43 | Orthopedics Progress Note ---
Date of Encounter: 10/15/17 Time of Encounter: 17:42 Subjective Principal diagnosis: Status post right total knee arthroplasty Interval history: The patient is without complaints. Currently being transfused 2 units packed red blood cells. Afebrile vital signs are stable. Incision is clean dry and intact. Neurovascularly intact with regard to bilateral lower extremities. Assessment :stable. Plan mobilize ,continue analgesics, discharge planning. Objective Vital signs: Vital Signs Temp Pulse Resp BP Pulse Ox 10/15/17 15:57 100.9 F H 93 16 138/84 93 10/15/17 15:31 98.6 F 10/15/17 14:07 99 F 94 18 134/82 94 10/15/17 14:06 100.5 F H 93 16 144/77 95 10/15/17 11:02 98.5 F 91 16 121/80 99 10/15/17 10:47 98 F 97 16 128/85 97 10/15/17 07:45 96 10/15/17 07:00 98.9 F 108 16 158/79 96 10/15/17 03:57 100.1 F H 104 19 153/82 98 10/15/17 01:02 99.8 F H 93 20 143/84 94 10/14/17 19:18 98.4 F 96 18 128/77 93 Intake and Output 10/15/17 10/15/17 10/15/17 07:59 15:59 23:59 Intake Total 500 / 500 780 / 780 Output Total 850 / 850 Balance 500 / 500 -70 / -70 Intake: Oral 500 / 500 480 / 480 Blood Product 300 / 300 Rbcs Leuko Poor As-1 Unit 300 / 300 [id number] Rbcs Leuko Poor As-3 Ph Unit 0 / 0 [id number] Output: Urine 850 / 850 Other: Meal Lunch Percent of Meal Consumed 90% # Voids 1 - Labs CBC & BMP: 10/15/17 04:22 10/15/17 04:22 Labs: Abnormal lab results Hgb 7.2 g/dL (11.5-15.4) L D 10/15/17 04:22 Hct 21.9 % (35.3-44.9) L 10/15/17 04:22 Sodium 134 mEq/L (136-145) L 10/15/17 04:22 Potassium 3.2 mEq/L (3.5-5.1) L 10/15/17 04:22 Glucose 108 mg/dL (70-105) H 10/15/17 04:22 Calculated Osmolality 276 (280-300) L 10/15/17 04:22 Calcium 8.1 mg/dL (8.6-10.3) L 10/15/17 04:22 - VTE Documentation of Mechanical Device: Venous foot pump, device Consult Discharge Plan - Plan Referrals: Johnie Farley MD [Primary Care Provider] -
[2017-10-15] MEDS: Beclomethasone 80mcg MDI IH SCH (22:40)
[2017-10-16 05:53] LABS: Hematocrit 26.1 % (35.3-44.9)
[2017-10-16 05:56] LABS: Hemoglobin 9.1 g/dL (11.5-15.4)
[2017-10-16] MEDS: *HR* Enoxaparin 30 MG/0.3 ML SYRINGE SQ SCH ×2 (06:10→17:13)
--- NOTE | 2017-10-16 06:40 | Orthopedics Progress Note ---
Date of Encounter: 10/16/17 Time of Encounter: 06:39 - Assessment and Plan (1) Arthritis of right knee Current Visit: Yes Status: Chronic (2) Status post total right knee replacement Current Visit: Yes Status: Acute (3) Morbid obesity with BMI of 40.0-44.9, adult Current Visit: Yes Status: Chronic (4) Anal cancer Current Visit: No Status: Chronic (5) Multiple sclerosis Current Visit: No Status: Chronic (6) Hypothyroid Current Visit: No Status: Chronic Qualifiers: Hypothyroidism type: unspecified Qualified Code(s): E03.9 - Hypothyroidism , unspecified (7) Hyperlipemia Current Visit: No Status: Chronic Qualifiers: Hyperlipidemia type: unspecified Qualified Code(s): E78.5 - Hyperlipidemia , unspecified (8) Mood disorder Current Visit: No Status: Chronic (9) CHF (congestive heart failure) Current Visit: No Status: Chronic Qualifiers: Heart failure type: unspecified Heart failure chronicity: unspecified Qualified Code(s): I50.9 - Heart failure, unspecified (10) Bipolar disorder Current Visit: No Status: Chronic Qualifiers: Active/Remission status: remission status unspecified Qualified Code(s): F31.9 - Bipolar disorder, unspecified (11) Schizophrenia Current Visit: No Status: Chronic Qualifiers: Schizophrenia type: unspecified Qualified Code(s): F20.9 - Schizophrenia, unspecified (12) Dislocation of right knee Current Visit: No Status: Chronic (13) Acute blood loss anemia Current Visit: Yes Status: Acute Subjective Principal diagnosis: Status post right total knee arthroplasty Interval history: Patient was seen this morning doing well without complaints. Afebrile vital signs stable. Operative extremity: Neurovascularly intact Dressing clean dry and intact Calves nontender Assessment and plan: Continue with postoperative care Hemoglobin 9.1 discharged today Objective Vital signs: Vital Signs Temp Pulse Resp BP Pulse Ox 10/16/17 06:31 98.9 F 96 20 113/74 94 10/16/17 04:16 97.9 F 71 19 144/71 95 10/16/17 00:05 97.8 F 68 18 143/73 96 10/15/17 22:40 17 91 10/15/17 18:45 99.3 F 93 18 151/90 95 10/15/17 15:57 100.9 F H 93 16 138/84 93 10/15/17 15:31 98.6 F 10/15/17 14:07 99 F 94 18 134/82 94 10/15/17 14:06 100.5 F H 93 16 144/77 95 10/15/17 11:02 98.5 F 91 16 121/80 99 10/15/17 10:47 98 F 97 16 128/85 97 10/15/17 07:45 96 10/15/17 07:00 98.9 F 108 16 158/79 96 Intake and Output 10/15/17 10/15/17 10/16/17 15:59 23:59 07:59 Intake Total 780 / 780 700 / 700 200 / 200 Output Total 850 / 850 1150 / 1150 300 / 300 Balance -70 / -70 -450 / -450 -100 / -100 Intake: Oral 480 / 480 400 / 400 200 / 200 Blood Product 300 / 300 300 / 300 Rbcs Leuko Poor As-1 Unit 300 / 300 [id number] Rbcs Leuko Poor As-3 Ph Unit 0 / 0 300 / 300 [id number] Output: Urine 850 / 850 1150 / 1150 300 / 300 Other: Meal Lunch Dinner Percent of Meal Consumed 90% 50% # Voids 1 Weight 105.6 kg Patient Weight 10/16/17 23:59 Weight 105.6 kg - Labs CBC & BMP: 10/16/17 04:46 10/15/17 04:22 Labs: Abnormal lab results Hgb 9.1 g/dL (11.5-15.4) L D 10/16/17 04:46 Hct 26.1 % (35.3-44.9) L 10/16/17 04:46 Sodium 134 mEq/L (136-145) L 10/15/17 04:22 Potassium 3.2 mEq/L (3.5-5.1) L 10/15/17 04:22 Glucose 108 mg/dL (70-105) H 10/15/17 04:22 Calculated Osmolality 276 (280-300) L 10/15/17 04:22 Calcium 8.1 mg/dL (8.6-10.3) L 10/15/17 04:22 - VTE Documentation of Mechanical Device: Venous foot pump, device Consult Discharge Plan - Plan Referrals: Johnie Farley MD [Primary Care Provider] -
[2017-10-16] MEDS: *HR* OxyCODONE Immed Rel 5 MG TABLET PO PRN ×3 (06:42→20:13)
[2017-10-16] MEDS: Beclomethasone 80mcg MDI IH SCH ×3 (08:20→22:30)
[2017-10-16] MEDS: Furosemide 20 MG TABLET PO SCH (09:40)
[2017-10-16] MEDS: Famotidine 20 MG TABLET PO SCH (09:40)
[2017-10-16] MEDS: [Myrbetriq] 50 MG PO SCH (09:41)
[2017-10-16] MEDS: BuPROPion SR (12 HR) 150 MG TABLET PO SCH ×2 (09:41→20:13)
[2017-10-17] MEDS: *HR* OxyCODONE Immed Rel 5 MG TABLET PO PRN (03:22)
--- NOTE | 2017-10-17 06:20 | Orthopedics Progress Note ---
Date of Encounter: 10/17/17 Time of Encounter: 06:20 - Assessment and Plan (1) Arthritis of right knee Current Visit: Yes Status: Chronic (2) Status post total right knee replacement Current Visit: Yes Status: Acute (3) Morbid obesity with BMI of 40.0-44.9, adult Current Visit: Yes Status: Chronic (4) Anal cancer Current Visit: No Status: Chronic (5) Multiple sclerosis Current Visit: No Status: Chronic (6) Hypothyroid Current Visit: No Status: Chronic Qualifiers: Hypothyroidism type: unspecified Qualified Code(s): E03.9 - Hypothyroidism , unspecified (7) Hyperlipemia Current Visit: No Status: Chronic Qualifiers: Hyperlipidemia type: unspecified Qualified Code(s): E78.5 - Hyperlipidemia , unspecified (8) Mood disorder Current Visit: No Status: Chronic (9) CHF (congestive heart failure) Current Visit: No Status: Chronic Qualifiers: Heart failure type: unspecified Heart failure chronicity: unspecified Qualified Code(s): I50.9 - Heart failure, unspecified (10) Bipolar disorder Current Visit: No Status: Chronic Qualifiers: Active/Remission status: remission status unspecified Qualified Code(s): F31.9 - Bipolar disorder, unspecified (11) Schizophrenia Current Visit: No Status: Chronic Qualifiers: Schizophrenia type: unspecified Qualified Code(s): F20.9 - Schizophrenia, unspecified (12) Dislocation of right knee Current Visit: No Status: Chronic (13) Acute blood loss anemia Current Visit: Yes Status: Acute Subjective Principal diagnosis: Status post right total knee arthroplasty Interval history: Patient was seen this morning doing well without complaints. Afebrile vital signs stable. Operative extremity: Neurovascularly intact Dressing clean dry and intact Calves nontender Assessment and plan: Continue with postoperative care Discharge held secondary to placement, discharged today Objective Vital signs: Vital Signs Temp Pulse Resp BP Pulse Ox 10/17/17 00:10 98.1 F 83 18 121/70 96 10/16/17 22:32 18 92 10/16/17 19:50 98.0 F 81 20 123/76 97 10/16/17 15:13 99.4 F 91 20 125/85 93 10/16/17 11:04 98.0 F 81 20 110/71 93 10/16/17 10:56 18 98 10/16/17 09:47 94 10/16/17 06:31 98.9 F 96 20 113/74 94 Intake and Output 10/16/17 10/16/17 10/17/17 15:59 23:59 07:59 Intake Total 180 / 180 340 / 340 Output Total 300 / 300 Balance 180 / 180 40 / 40 Intake: Oral 180 / 180 340 / 340 Output: Urine 300 / 300 Other: Meal Lunch Dinner Percent of Meal Consumed 25% 5% # Voids 1 Weight 101.3 kg Patient Weight 10/17/17 23:59 Weight 101.3 kg - Labs CBC & BMP: 10/16/17 04:46 10/15/17 04:22 Labs: Abnormal lab results Hgb 9.1 g/dL (11.5-15.4) L D 10/16/17 04:46 Hct 26.1 % (35.3-44.9) L 10/16/17 04:46 Sodium 134 mEq/L (136-145) L 10/15/17 04:22 Potassium 3.2 mEq/L (3.5-5.1) L 10/15/17 04:22 Glucose 108 mg/dL (70-105) H 10/15/17 04:22 Calculated Osmolality 276 (280-300) L 10/15/17 04:22 Calcium 8.1 mg/dL (8.6-10.3) L 10/15/17 04:22 - VTE Documentation of Mechanical Device: Venous foot pump, device Consult Discharge Plan - Plan Referrals: Johnie Farley MD [Primary Care Provider] -
[2017-10-17] MEDS: Beclomethasone 80mcg MDI IH SCH ×2 (07:41→22:12)
[2017-10-17] MEDS: *HR* Enoxaparin 30 MG/0.3 ML SYRINGE SQ SCH ×2 (07:58→17:44)
[2017-10-17] MEDS: BuPROPion SR (12 HR) 150 MG TABLET PO SCH ×2 (07:59→21:50)
[2017-10-17] MEDS: Famotidine 20 MG TABLET PO SCH (07:59)
[2017-10-17] MEDS: Furosemide 20 MG TABLET PO SCH (07:59)
[2017-10-17] MEDS: [Myrbetriq] 50 MG PO SCH (08:00)
[2017-10-18] MEDS: *HR* Enoxaparin 30 MG/0.3 ML SYRINGE SQ SCH ×2 (05:54→19:57)
--- NOTE | 2017-10-18 06:42 | Orthopedics Progress Note ---
Date of Encounter: 10/18/17 Time of Encounter: 06:42 - Assessment and Plan (1) Arthritis of right knee Current Visit: Yes Status: Chronic (2) Status post total right knee replacement Current Visit: Yes Status: Acute (3) Morbid obesity with BMI of 40.0-44.9, adult Current Visit: Yes Status: Chronic (4) Anal cancer Current Visit: No Status: Chronic (5) Multiple sclerosis Current Visit: No Status: Chronic (6) Hypothyroid Current Visit: No Status: Chronic Qualifiers: Hypothyroidism type: unspecified Qualified Code(s): E03.9 - Hypothyroidism , unspecified (7) Hyperlipemia Current Visit: No Status: Chronic Qualifiers: Hyperlipidemia type: unspecified Qualified Code(s): E78.5 - Hyperlipidemia , unspecified (8) Mood disorder Current Visit: No Status: Chronic (9) CHF (congestive heart failure) Current Visit: No Status: Chronic Qualifiers: Heart failure type: unspecified Heart failure chronicity: unspecified Qualified Code(s): I50.9 - Heart failure, unspecified (10) Bipolar disorder Current Visit: No Status: Chronic Qualifiers: Active/Remission status: remission status unspecified Qualified Code(s): F31.9 - Bipolar disorder, unspecified (11) Schizophrenia Current Visit: No Status: Chronic Qualifiers: Schizophrenia type: unspecified Qualified Code(s): F20.9 - Schizophrenia, unspecified (12) Dislocation of right knee Current Visit: No Status: Chronic (13) Acute blood loss anemia Current Visit: Yes Status: Acute Subjective Principal diagnosis: Status post right total knee arthroplasty Interval history: Patient was seen this morning doing well without complaints. Afebrile vital signs stable. Operative extremity: Neurovascularly intact Dressing clean dry and intact Calves nontender Assessment and plan: Continue with postoperative care Discharge held secondary to placement, discharged today Objective Vital signs: Vital Signs Temp Pulse Resp BP Pulse Ox 10/18/17 03:46 97.7 F 86 15 120/76 93 10/17/17 22:12 15 93 10/17/17 21:56 98.2 F 85 16 105/71 92 10/17/17 16:00 98.1 F 89 16 142/84 93 10/17/17 15:26 98.8 F 93 20 105/69 97 10/17/17 12:52 109/74 10/17/17 11:21 99.3 F 91 16 101/70 93 10/17/17 07:42 20 96 10/17/17 06:47 99.2 F 81 20 100/68 96 Intake and Output 10/17/17 10/17/17 10/18/17 15:59 23:59 07:59 Intake Total 240 / 240 120 / 120 Output Total 175 / 175 500 / 500 Balance 65 / 65 120 / 120 -500 / -500 Intake: Oral 240 / 240 120 / 120 Output: Urine 175 / 175 500 / 500 Other: Meal Lunch Percent of Meal Consumed 5% 5% # Voids 1 - Labs CBC & BMP: 10/16/17 04:46 10/15/17 04:22 Labs: Abnormal lab results Hgb 9.1 g/dL (11.5-15.4) L D 10/16/17 04:46 Hct 26.1 % (35.3-44.9) L 10/16/17 04:46 Sodium 134 mEq/L (136-145) L 10/15/17 04:22 Potassium 3.2 mEq/L (3.5-5.1) L 10/15/17 04:22 Glucose 108 mg/dL (70-105) H 10/15/17 04:22 Calculated Osmolality 276 (280-300) L 10/15/17 04:22 Calcium 8.1 mg/dL (8.6-10.3) L 10/15/17 04:22 - VTE Documentation of Mechanical Device: Venous foot pump, device Consult Discharge Plan - Plan Referrals: Johnie Farley MD [Primary Care Provider] -
[2017-10-18] MEDS: Beclomethasone 80mcg MDI IH SCH ×2 (07:42→20:49)
[2017-10-18] MEDS: BuPROPion SR (12 HR) 150 MG TABLET PO SCH ×2 (08:17→21:21)
[2017-10-18] MEDS: Famotidine 20 MG TABLET PO SCH (08:17)
[2017-10-18] MEDS: [Myrbetriq] 50 MG PO SCH (08:17)
[2017-10-18] MEDS: Furosemide 20 MG TABLET PO SCH (08:17)
[2017-10-18] MEDS: *HR* OxyCODONE Immed Rel 5 MG TABLET PO PRN ×2 (10:47→19:57)
--- NOTE | 2017-10-18 12:14 | Event Note ---
Date of Encounter: 10/17/17 Time of Encounter: 12:25 PCR- POD#4 R TKR 10/13/17 Ag PCR - Patient seen at bedside. Pain control: Adequate Participating in PT. All questions and concerns addressed. Educated on use of incentive spirometer, ambulation, and hydration. Patient educated on post-operative restrictions and care. Addressed: continue in TROM brace - bracing to see patient. D/C plan: ECF - awaiting placement/acceptance
[2017-10-19] MEDS: *HR* OxyCODONE Immed Rel 5 MG TABLET PO PRN ×2 (02:33→15:50)
[2017-10-19] MEDS: *HR* Enoxaparin 30 MG/0.3 ML SYRINGE SQ SCH (05:47)
[2017-10-19] MEDS: Beclomethasone 80mcg MDI IH SCH (07:28)
[2017-10-19] MEDS: Famotidine 20 MG TABLET PO SCH (08:02)
[2017-10-19] MEDS: BuPROPion SR (12 HR) 150 MG TABLET PO SCH (08:02)
[2017-10-19] MEDS: [Myrbetriq] 50 MG PO SCH (08:03)
[2017-10-19] MEDS: Furosemide 20 MG TABLET PO SCH (08:03)
--- NOTE | 2017-10-19 08:28 | Orthopedics Progress Note ---
Date of Encounter: 10/19/17 Time of Encounter: 08:27 - Assessment and Plan (1) Arthritis of right knee Current Visit: Yes Status: Chronic (2) Status post total right knee replacement Current Visit: Yes Status: Acute (3) Morbid obesity with BMI of 40.0-44.9, adult Current Visit: Yes Status: Chronic (4) Anal cancer Current Visit: No Status: Chronic (5) Multiple sclerosis Current Visit: No Status: Chronic (6) Hypothyroid Current Visit: No Status: Chronic Qualifiers: Hypothyroidism type: unspecified Qualified Code(s): E03.9 - Hypothyroidism , unspecified (7) Hyperlipemia Current Visit: No Status: Chronic Qualifiers: Hyperlipidemia type: unspecified Qualified Code(s): E78.5 - Hyperlipidemia , unspecified (8) Mood disorder Current Visit: No Status: Chronic (9) CHF (congestive heart failure) Current Visit: No Status: Chronic Qualifiers: Heart failure type: unspecified Heart failure chronicity: unspecified Qualified Code(s): I50.9 - Heart failure, unspecified (10) Bipolar disorder Current Visit: No Status: Chronic Qualifiers: Active/Remission status: remission status unspecified Qualified Code(s): F31.9 - Bipolar disorder, unspecified (11) Schizophrenia Current Visit: No Status: Chronic Qualifiers: Schizophrenia type: unspecified Qualified Code(s): F20.9 - Schizophrenia, unspecified (12) Dislocation of right knee Current Visit: No Status: Chronic (13) Acute blood loss anemia Current Visit: Yes Status: Acute Subjective Principal diagnosis: Status post right total knee arthroplasty Interval history: Patient was seen this morning doing well without complaints. Afebrile vital signs stable. Operative extremity: Neurovascularly intact Dressing clean dry and intact Calves nontender Assessment and plan: Continue with postoperative care Discharge held secondary to placement, discharged today x-rays show a well reduced Objective Vital signs: Vital Signs Temp Pulse Resp BP Pulse Ox 10/19/17 08:18 97.7 F 83 18 105/70 97 10/19/17 07:30 16 90 10/19/17 00:09 98.1 F 81 16 101/70 93 10/18/17 21:40 98.2 F 82 18 113/77 92 10/18/17 20:49 18 92 10/18/17 14:45 98.6 F 89 20 96/65 95 10/18/17 11:15 97.9 F 92 18 104/72 93 Intake and Output 10/18/17 10/19/17 10/19/17 23:59 07:59 15:59 Other: Stool Size Moderate Stool Consistency loose Stool Color Brown Yellow # Voids 1 # Bowel Movements 1 - Labs CBC & BMP: 10/16/17 04:46 10/15/17 04:22 Labs: Abnormal lab results Hgb 9.1 g/dL (11.5-15.4) L D 10/16/17 04:46 Hct 26.1 % (35.3-44.9) L 10/16/17 04:46 Sodium 134 mEq/L (136-145) L 10/15/17 04:22 Potassium 3.2 mEq/L (3.5-5.1) L 10/15/17 04:22 Glucose 108 mg/dL (70-105) H 10/15/17 04:22 Calculated Osmolality 276 (280-300) L 10/15/17 04:22 Calcium 8.1 mg/dL (8.6-10.3) L 10/15/17 04:22 - VTE Documentation of Mechanical Device: Venous foot pump, device Consult Discharge Plan - Plan Referrals: Johnie Farley MD [Primary Care Provider] -
[2017-10-19 15:35] VITALS: BP 120/67
--- NOTE | 2017-10-19 16:47 | Event Note ---
Date of Encounter: 10/19/17 Time of Encounter: 12:00 PCR - POD#6 Patient seen at bedside. Labs reviewed. Pain control: adequate Participating in PT. All questions and concerns addressed. Educated on use of incentive spirometer. Encouraged ambulation and proper hydration. Patient educated on post-operative restrictions and post-operative care. Addressed: Tscope at all times, locked in extension. WBAT Discharge plan: pending ECF Auth, if denied - will go home with
--- NOTE | 2017-10-20 12:13 | Physician Discharge Referral ---
Home Health/Hosp Referral Info Transfer to: Home Health Attending Provider: Provider in Charge Post Discharge: PCP - Diagnosis (1) Arthritis of right knee Priority: Primary Status: Chronic (2) Status post total right knee replacement Priority: Primary Status: Acute (3) Multiple sclerosis Status: Chronic (4) Anxiety and depression Status: Chronic (5) Dislocation of right knee Status: Chronic (6) Obstructive sleep apnea Status: Chronic (7) CHF (congestive heart failure) Status: Chronic (8) HLD (hyperlipidemia) Status: Chronic (9) Morbid obesity with BMI of 40.0-44.9, adult Status: Chronic - Respiratory Orders None Smoking Cessation: Smoking cessation has been advised. For more information, call the [place] Tobacco Quit Line at 5-021-QHLC-NOW. - Diet/Nutrition Diet/Nutrition Orders: Regular - Activity Activity Orders: Ambulate, Walker - Services Needed Following services are medically necessary services: Nursing, Home Health Aide, Physical Therapy, Occupational Therapy Home Care Orders: Knee Continuity: Opsite dressing, leave intact until first post-operative visit. If dressing becomes >50% saturated, contact office, remove dressing and place appropriate dressing in its place. Do not allow for dressing to get wet. Zipline/Neymar in place, plan to remove at post-operative day #14-16. Total Joint Precautions x 6 weeks Apply cold therapy wrap 3-6x/day for 20 minutes at a time. Encourage ambulation throughout the day Use Incentive spirometer 10x/hour. Elevate affected extremity above heart as tolerated. Brace: Wear tscope brace at all times x 6 weeks, no knee flexion x 6 weeks. WBAT. OK to remove brace to shower and bathe - Transfer Medications Home Medications: Atorvastatin [Lipitor] 40 mg PO HS 04/10/15 [History] Sertraline [Zoloft] 100 mg PO DAILY 04/10/15 [History] Levothyroxine [Synthroid] 112 mcg PO QAM 09/01/16 [History] Potassium Chloride [Klor-Con 10] 20 meq PO BID 09/01/16 [History] Mirabegron [Myrbetriq] 50 mg PO DAILY 06/29/17 [History] ALPRAZolam [Xanax 1 MG Tablet] 1 mg PO BID PRN 07/14/17 [History] Furosemide [Lasix] 40 mg PO DAILY #30 07/17/17 [Rx] Pantoprazole Sodium [Protonix] 40 mg PO BID #60 tablet. 07/17/17 [Rx] BuPROPion SR (12 HR) [Wellbutrin SR] 150 mg PO BID 07/26/17 [History] Ipratropium/Albuterol Neb [Duoneb] 3 ml IH Q6HR PRN 07/26/17 [History] Oxybutynin [Ditropan] 5 mg PO DAILY #30 tablet 08/16/17 [Rx] Amitriptyline [Elavil] 25 mg PO HS 09/19/17 [History] Buspirone HCl [Buspar] 10 mg PO BID 09/19/17 [History] Famotidine [Heartburn Prevention] 20 mg PO DAILY 09/19/17 [History] Fluticasone Propionate [Flovent Hfa] 1 puff IH BID 09/19/17 [History] Nystatin POWDER [Nystop] 1 appl TP BID 09/19/17 [History] Quetiapine Fumarate [Seroquel] 75 mg PO HS 09/19/17 [History] Diphenoxylate/Atropine [Lomotil 2.5 mg/0.025 mg] 1 tab PO QID PRN 09/23/17 [ History] Melatonin/Pyridoxine HCl (B6) [Melatonin 5 mg Tablet] 5 mg PO HS PRN 09/23/17 [ History] Beclomethasone Diprop 80mcg [QVAR 80 mcg] 1 puff IH BIDR puff 10/09/17 [Rx] Aspirin Enteric Coated [Aspirin EC] 325 mg PO BID #20 tablet. 10/13/17 [Rx] OxyCODONE/APAP 5/325 [Percocet 5/325 MG] 1 tab PO QID PRN 5 Days #20 tablet [Rx] Allergies/Adverse Reactions: 3 Allergy/AdvReac Type Severity Reaction Status Date / Time No Known Allergies Allergy Verified 10/13/17 13:08 Certification: Further, I certify that my clinical findings support that this patient is homebound (i.e. absences from home require considerable and taxing effort and are for medical reasons or shinto services or infrequently or short duration when for other reasons) because: Homebound Reason: Patient requires assistance of a person or device to safely leave home, Post-surgery restriction and or conditions limit ability to leave home Attestation: My signature below is to certify that this patient is under my care and that I, or nurse practitioner, or a physician's personnel security assistant working with me, has a face-to -face encounter with this patient.
== END 2017-10-19 18:20 | disposition home health service (06) | DRG 470 ==
LOC: SAMDAY 11:18 → 3NENU 16:09
PROVIDERS: ADMIT Orthopaedic Surgery; ATTEND Orthopaedic Surgery

== ENCOUNTER 2017-10-29 15:15 | Inpatient (IN) ==
[2017-10-29] MEDS ORDERED: Piperacillin/Tazobactam 3.375 GM in 0.9 % Sodium Chloride Mini Bag 100 ML IVPB ONE (16:39)
[2017-10-29] MEDS ORDERED: Acetaminophen IV 500 MG/50 ML INFUS..BTL IVPB ONE (16:40)
--- NOTE | 2017-10-29 16:42 | Emergency Department Note ---
Disposition Clinical Impression: UTI (urinary tract infection) Qualifiers: Urinary tract infection type: acute cystitis Hematuria presence: without hematuria Qualified Code(s): N30.00 - Acute cystitis without hematuria Knee contusion Qualifiers: Encounter type: initial encounter Laterality: right Qualified Code(s): S80.01XA - Contusion of right knee, initial encounter Disposition: Home, Self-Care Condition: Good Lower Extremity Injury HPI - General Chief Complaint: ED Extremity Injury, Lower Stated Complaint: R Knee Pain Time Seen by Provider: 10/29/17 15:32 Source: patient Nursing Notes Reviewed: Yes Vital Signs Reviewed: Yes - History of Present Illness HPI Narrative: This is a 57-year-old female presents with pain after falling on her right knee. Apparently she had a mechanical fall yesterday and landed on her right knee which she has had a total joint replacement done by Dr. Luong. She admits that there is been some saturation of a dressing. Her visiting nurse sent her in for further evaluation. She has no symptoms of chest pain, dyspnea, nausea, vomiting, diarrhea. She has no sick or ill contacts. General: No acute distress HEENT: Pupils equal and reactive to light, extraoccular muscle movement is normal, TMS are clear bilaterally. Heart: RRR, No murmor rub or gallop Lungs: lungs clear, no wheezing, rales or ronchi. ABD: SNT, no focal areas or tenderness, no guarding or rebound tenderness. Extremities: \Neurovascular exam of the right lower extremity shows an intact staple incision without any surrounding erythema and good distal sensation and motor function as well as pulses. There is some mild swelling and redness to the lower extremities bilaterally not extending beyond the mid hughes region. Neuro: CN 2-12 in tact, no focal deficit. strength 5/5. Medical decision making I do not suspect joint infection at this time however the patient was febrile and tachycardic and given recent trauma to the joint I did order an x-ray to rule out underlying disruption of the prostheses. X-ray shows no evidence of acute fracture dislocation. Ultimately IV Tylenol was administered, broad- spectrum antibiotics were initiated. I am concerned about the redness on the hughes however given the findings of nitrite-positive urine I suspect that the symptoms of fever and tachycardia are likely related to underlying urinary tract infection. Cultures were sent. The patient will be admitted for monitoring of her wound as well as treatment of her underlying urinary tract infection. The patient was stable at the time of admission. - Related Data Home Medications Medication Instructions Recorded Confirmed Atorvastatin [Lipitor] 40 mg PO HS 04/10/15 10/29/17 Sertraline [Zoloft] 100 mg PO DAILY 04/10/15 10/29/17 Levothyroxine [Synthroid] 112 mcg PO QAM 09/01/16 10/29/17 Potassium Chloride [Klor-Con 10] 20 meq PO BID 09/01/16 10/29/17 Mirabegron [Myrbetriq] 50 mg PO DAILY 06/29/17 10/29/17 BuPROPion SR (12 HR) [Wellbutrin 150 mg PO BID 07/26/17 10/29/17 SR] Amitriptyline [Elavil] 25 mg PO HS 09/19/17 10/29/17 Buspirone HCl [Buspar] 10 mg PO BID 09/19/17 10/29/17 Famotidine [Heartburn Prevention] 20 mg PO DAILY 09/19/17 10/29/17 Fluticasone Propionate [Flovent 1 puff IH BID 09/19/17 10/29/17 Hfa] Nystatin POWDER [Nystop] 1 appl TP BID 09/19/17 10/29/17 Quetiapine Fumarate [Seroquel] 75 mg PO HS 09/19/17 10/29/17 Diphenoxylate/Atropine [Lomotil 1 tab PO QID PRN 09/23/17 10/29/17 2.5 mg/0.025 mg] Melatonin/Pyridoxine HCl (B6) 5 mg PO HS PRN 09/23/17 10/29/17 [Melatonin 5 mg Tablet] Ibuprofen [Motrin] 600 mg PO BID PRN 10/29/17 10/29/17 Previous Rx's Medication Instructions Recorded Furosemide [Lasix] 40 mg PO DAILY #30 07/17/17 Pantoprazole Sodium [Protonix] 40 mg PO BID #60 tablet. 07/17/17 Oxybutynin [Ditropan] 5 mg PO DAILY #30 tablet 08/16/17 Beclomethasone Diprop 80mcg [QVAR 1 puff IH BIDR puff 10/09/17 80 mcg] Aspirin Enteric Coated [Aspirin EC] 325 mg PO BID #20 tablet. 10/13/17 Allergies Allergy/AdvReac Type Severity Reaction Status Date / Time No Known Allergies Allergy Verified 10/29/17 17:11 All systems ED: reviewed and negative except as stated. Past Medical History - Past Medical History Medical history: Reports: cancer, CHF, hyperlipidemia, thyroid disease, other Surgical history: Reports: other, appendectomy Psychiatric history: Reports: anxiety, depression, previous psychiatric hospitalization [employer]OC[employer]ER history: Reports: bilateral tubal ligation - Social History Smoking Status: Current every day smoker Smokeless Tobacco Status: No Alcohol use: Reports: none Drug use: Reports: marijuana Physical Exam - General General appearance: alert, in no apparent distress Course Vital Signs Temperature 101.4 F H 10/29/17 15:19 Pulse Rate 108 10/29/17 15:19 Respiratory Rate 16 10/29/17 15:19 Blood Pressure 114/57 10/29/17 15:19 O2 Sat by Pulse Oximetry 96 10/29/17 15:19 Temperature 99.0 F 10/29/17 20:52 Pulse Rate 95 10/29/17 20:52 Respiratory Rate 18 10/29/17 23:35 Blood Pressure 89/57 10/29/17 20:52 O2 Sat by Pulse Oximetry 97 10/29/17 23:35 Oxygen Delivery Oxygen Delivery Room Air Extremity Injury, Lower - Lab Data Result diagrams: 10/29/17 17:16 10/29/17 17:16 Lab Results 10/29/17 10/29/17 10/29/17 Range/Units 17:00 17:16 17:16 WBC 9.7 (4.3-11.1) K/mcL RBC 3.17 L (3.82-4.97) M/mcL Hgb 9.2 L (11.5-15.4) g/dL Hct 28.5 L (35.3-44.9) % MCV 89.9 (83.0-100.0) fL MCH 29.0 (28.0-33.3) pg MCHC 32.3 (31.6-35.5) g/dL RDW 15.8 H (11.5-14.5) % Plt Count 228 (140-400) K/mcL MPV 10.5 (9.4-12.4) fL Immature Gran % 0.8 (0-4) % Seg Neutrophils % 79.2 % Lymphocytes % 8.6 % Monocytes % 11.0 % Eosinophils % 0.2 % Basophils % 0.2 % Neutrophils # 7.7 (1.6-8.9) K/mcL Lymphocytes # 0.8 (0.6-4.6) K/mcL Monocytes # 1.1 (0.0-1.3) K/mcL Eosinophils # 0.0 (0.0-0.6) K/mcL Basophils # 0.0 (0.0-0.2) K/mcL ESR 86 H (0-15) mm/hr Sodium (136-145) mEq/L Potassium (3.5-5.1) mEq/L Chloride (98-107) mEq/L Carbon Dioxide (23-29) mEq/L BUN (6-20) mg/dL Creatinine (0.60-1.20) mg/dL Est GFR ( Amer) (> 60) Est GFR (Non-Af Amer) (> 60) BUN/Creatinine Ratio (6-26) Glucose (70-105) mg/dL Calculated Osmolality (280-300) Calcium (8.6-10.3) mg/dL Total Bilirubin (0.3-1.0) mg/dL AST (13-39) Units/L ALT (7-52) Units/L Alkaline Phosphatase (34-104) Units/L C-Reactive Protein (Less than 10) mg/L Serum Total Protein (6.4-8.9) g/dL Albumin (3.5-5.7) g/dL Globulin (2.4-3.5) g/dL Albumin/Globulin Ratio (1.1-2.2) Urine Color Yellow (Yellow) Urine Clarity Cloudy A (Clear) Urine pH 6.5 (5.0-8.0) pH Units Ur Specific [place] 1.009 L (1.010-1.025) Urine Protein Negative (Neg-Trace) mg/dL Urine Glucose (UA) Normal (Normal) mg/dL Urine Ketones Negative (Negative) mg/dL Urine Blood Negative (Negative) Urine Nitrite Positive A (Negative) Urine Bilirubin Negative (Negative) Urine Urobilinogen Normal (Normal) mg/dL Ur Leukocyte Esterase Large H (Negative) Urine Microscopic RBC 0-3 (0-3) per hpf Urine Microscopic WBC 50-100 H (0-3) per hpf Ur Squamous Epith Cells Many H (None-Few) per lpf Urine Bacteria Many H (None-Few) per hpf Hyaline Casts None Seen (None-Few) per lpf Ur Culture Indicated? NO. (NO) 10/29/17 Range/Units 17:16 WBC (4.3-11.1) K/mcL RBC (3.82-4.97) M/mcL Hgb (11.5-15.4) g/dL Hct (35.3-44.9) % MCV (83.0-100.0) fL MCH (28.0-33.3) pg MCHC (31.6-35.5) g/dL RDW (11.5-14.5) % Plt Count (140-400) K/mcL MPV (9.4-12.4) fL Immature Gran % (0-4) % Seg Neutrophils % % Lymphocytes % % Monocytes % % Eosinophils % % Basophils % % Neutrophils # (1.6-8.9) K/mcL Lymphocytes # (0.6-4.6) K/mcL Monocytes # (0.0-1.3) K/mcL Eosinophils # (0.0-0.6) K/mcL Basophils # (0.0-0.2) K/mcL ESR (0-15) mm/hr Sodium 137 (136-145) mEq/L Potassium 2.6 L (3.5-5.1) mEq/L Chloride 103 (98-107) mEq/L Carbon Dioxide 27 (23-29) mEq/L BUN 12 (6-20) mg/dL Creatinine 0.86 (0.60-1.20) mg/dL Est GFR ( Amer) > 60 (> 60) Est GFR (Non-Af Amer) > 60 (> 60) BUN/Creatinine Ratio 14 (6-26) Glucose 90 (70-105) mg/dL Calculated Osmolality 283 (280-300) Calcium 7.9 L (8.6-10.3) mg/dL Total Bilirubin 0.9 (0.3-1.0) mg/dL AST 11 L (13-39) Units/L ALT 9 (7-52) Units/L Alkaline Phosphatase 125 H (34-104) Units/L C-Reactive Protein 288 H (Less than 10) mg/L Serum Total Protein 6.1 L (6.4-8.9) g/dL Albumin 3.5 (3.5-5.7) g/dL Globulin 2.6 (2.4-3.5) g/dL Albumin/Globulin Ratio 1.3 (1.1-2.2) Urine Color (Yellow) Urine Clarity (Clear) Urine pH (5.0-8.0) pH Units Ur Specific [place] (1.010-1.025) Urine Protein (Neg-Trace) mg/dL Urine Glucose (UA) (Normal) mg/dL Urine Ketones (Negative) mg/dL Urine Blood (Negative) Urine Nitrite (Negative) Urine Bilirubin (Negative) Urine Urobilinogen (Normal) mg/dL Ur Leukocyte Esterase (Negative) Urine Microscopic RBC (0-3) per hpf Urine Microscopic WBC (0-3) per hpf Ur Squamous Epith Cells (None-Few) per lpf Urine Bacteria (None-Few) per hpf Hyaline Casts (None-Few) per lpf Ur Culture Indicated? (NO)
[2017-10-29 17:12] LABS: Bilirubin,Urine Negative (Negative); Blood,Urine Negative (Negative); Clarity,Urine Cloudy (Clear); Color,Urine Yellow (Yellow); Glucose,Urine (UA) Normal (Normal); Ketones,Urine Negative (Negative); Leukocyte Esterase,Urine Large (Negative); Nitrite,Urine Positive (Negative); PH,Urine 6.5 pH Units (5.0-8.0); Protein,Urine Negative (Neg-Trace); Specific Gravity,Urine 1.009 (1.010-1.025); Urobilinogen,Urine Normal (Normal)
[2017-10-29 17:14] LABS: Bacteria,Urine Many per hpf (None-Few); Hyaline Casts,Urine None Seen per lpf (None-Few); RBC,Urine 0-3 per hpf (0-3); Squamous Epithelial Cell,Urine Many per lpf (None-Few); WBC,Urine 50-100 per hpf (0-3)
[2017-10-29] MEDS: 0.9 % Sodium Chloride 1,000 ML IVC SCH ×3 (17:30→22:25)
[2017-10-29 17:33] LABS: Basophils % 0.2 %; Eosinophils % 0.2 %; Hematocrit 28.5 % (35.3-44.9); Hemoglobin 9.2 g/dL (11.5-15.4); Immature Granulocytes % 0.8 % (0-4); Lymphocytes # 0.8 K/mcL (0.6-4.6); Lymphocytes % 8.6 %; Mean Corpuscular HGB Conc 32.3 g/dL (31.6-35.5); Mean Corpuscular Volume 89.9 fL (83.0-100.0); Mean Platelet Volume 10.5 fL (9.4-12.4); Monocytes # 1.1 K/mcL (0.0-1.3); Neutrophils # 7.7 K/mcL (1.6-8.9); Platelet Count 228 K/mcL (140-400); Red Blood Count 3.17 M/mcL (3.82-4.97); Red Cell Distribution Width 15.8 % (11.5-14.5); Segmented Neutrophils % 79.2 %
[2017-10-29 18:00] LABS: Alanine Aminotransferase 9 Units/L (7-52); Albumin 3.5 g/dL (3.5-5.7); Albumin/Globulin Ratio 1.3 (1.1-2.2); Alkaline Phosphatase 125 Units/L (34-104); Aspartate Amino Transferase 11 Units/L (13-39); BUN/Creatinine Ratio 14 (6-26); Bilirubin,Total 0.9 mg/dL (0.3-1.0); Blood Urea Nitrogen 12 mg/dL (6-20); C-Reactive Protein 288 mg/L (Less than 10); Calcium 7.9 mg/dL (8.6-10.3); Carbon Dioxide 27 mEq/L (23-29); Chloride 103 mEq/L (98-107); Globulin 2.6 g/dL (2.4-3.5); Glucose 90 mg/dL (70-105); Osmolality,Calculated 283 (280-300); Potassium 2.6 mEq/L (3.5-5.1); Sodium 137 mEq/L (136-145); Total Protein 6.1 g/dL (6.4-8.9); eGFR For African Americans > 60 (> 60); eGFR For Non-African Americans > 60 (> 60)
[2017-10-29] MEDS ORDERED: Potassium Chloride Elixir 20 MEQ/15 ML UDC PO ONE (18:13)
[2017-10-29] MEDS ORDERED: Potassium Chloride 40 MEQ, Lidocaine 1% 2 ML in D5% in Water 500 ML IVPB ONE (18:13)
[2017-10-29] MEDS ORDERED: *HR* OxyCODONE/APAP 5/325 TABLET PO ONE (19:16)
[2017-10-29] MEDS ORDERED: Naloxone 0.4 MG/ML INJ IVP PRN (20:44)
[2017-10-29] MEDS ORDERED: Ibuprofen 600 MG TABLET PO PRN (20:48)
[2017-10-29] MEDS ORDERED: PYRIDOXINE HCL PO PRN (20:48)
[2017-10-29] MEDS ORDERED: MELATONIN PO PRN (20:48)
--- NOTE | 2017-10-29 21:16 | Internal Med History&Physical ---
Date of Encounter: 10/29/17 Time of Encounter: 20:30 Assessment and Plan (1) Sepsis Current visit: Yes Status: Suspected Patient presenting with signs of sepsis with fever, tachycardia and acute urinary tract infection. Will check lactate. IV fluids. Monitor vital signs closely. Follow blood culture and urine culture results. IV antibiotics. Qualifiers: Sepsis type: Escherichia coli Qualified Code(s): A41.51 - Sepsis due to Escherichia coli [E. coli] (2) Anemia Current visit: Yes Status: Chronic Hemoglobin 9.2. Stable since last hospitalization. Will check iron profile, vitamin B12 and folic acid levels. Qualifiers: Anemia type: unspecified type Qualified Code(s): D64.9 - Anemia, unspecified (3) UTI (urinary tract infection) Current visit: Yes Status: Acute Patient presenting with acute urinary tract infection. Will send urine for culture. Continue IV antibiotics. Qualifiers: Urinary tract infection type: acute cystitis Hematuria presence: without hematuria Qualified Code(s): N30.00 - Acute cystitis without hematuria (4) CHF (congestive heart failure) Current visit: Yes Status: Suspected Patient with reported history of congestive heart failure. Most likely diastolic dysfunction. On oral Lasix at home. Will continue. No signs of acute decompensation at this time. Qualifiers: Heart failure type: diastolic Heart failure chronicity: chronic Qualified Code(s): I50.32 - Chronic diastolic (congestive) heart failure (5) Status post total right knee replacement Current visit: Yes Status: Chronic Patient underwent right knee arthroplasty last month and has fallen on the right knee. We will consult orthopedics to evaluate patient. X-ray does not show any acute fracture or displaced joint. (6) DVT prophylaxis Current visit: Yes Status: Acute With subcutaneous Lovenox Internal Medicine - H&P: HPI Chief complaint: Fall, fevers Admitted From: Emergency Dept Plans for Post Hospital Care: Home History of present illness: Ms. Copeland is a 57 year old female patient who recently underwent right total knee arthroplasty, as a history of hypertension, hypothyroidism, hyperlipidemia , chronic congestive heart failure and multiple sclerosis presented to the ER with complaints of fall. This occurred while the patient was at home and was getting up from her toilet seat. She did not does not recollect what happened prior to her fall and does not know if she slipped on anything. She sees that she fell on her right knee and developed pain as a result. She denies any open wound. She was seen in orthopedic clinic last week and had rebekah placed on an open area of her incision. She denies any drainage or discharge from the wound. She also complains of fever with chills and burning micturition along with nausea. No abdominal pain. Past Med Surg Social Fam HX - Past Medical History Attestation: Yes The following information was validated with the patient. Source: patient Medical history: cancer, CHF, hyperlipidemia, thyroid disease, other Psychiatric history: anxiety, depression, previous psychiatric hospitalization - Past Surgical History Surgical History: other, appendectomy - Social History Smoking Status: Current every day smoker Smokeless Tobacco Status: No Alcohol use: none Drug use: marijuana - Family History Brother Family Member Ethnicity: Non- Living Status: Still Living Sister Family Member Ethnicity: Non- Living Status: Still Living Father Family Member Ethnicity: Non- Living Status: Hx Family Cardiac Disorders: Yes Hx Family Respiratory Disorders: Yes Hx Family Cancer: Yes Mother Family Member Ethnicity: Non- Living Status: Still Living Hx Family Neurologic Disorders: Yes (Alzheimer's Disease) Internal Medicine - H&P: Meds Atorvastatin [Lipitor] 40 mg PO HS 04/10/15 [History] Sertraline [Zoloft] 100 mg PO DAILY 04/10/15 [History] Levothyroxine [Synthroid] 112 mcg PO QAM 09/01/16 [History] Potassium Chloride [Klor-Con 10] 20 meq PO BID 09/01/16 [History] Mirabegron [Myrbetriq] 50 mg PO DAILY 06/29/17 [History] Furosemide [Lasix] 40 mg PO DAILY #30 07/17/17 [Rx] Pantoprazole Sodium [Protonix] 40 mg PO BID #60 tablet. 07/17/17 [Rx] BuPROPion SR (12 HR) [Wellbutrin SR] 150 mg PO BID 07/26/17 [History] Oxybutynin [Ditropan] 5 mg PO DAILY #30 tablet 08/16/17 [Rx] Amitriptyline [Elavil] 25 mg PO HS 09/19/17 [History] Buspirone HCl [Buspar] 10 mg PO BID 09/19/17 [History] Famotidine [Heartburn Prevention] 20 mg PO DAILY 09/19/17 [History] Fluticasone Propionate [Flovent Hfa] 1 puff IH BID 09/19/17 [History] Nystatin POWDER [Nystop] 1 appl TP BID 09/19/17 [History] Quetiapine Fumarate [Seroquel] 75 mg PO HS 09/19/17 [History] Diphenoxylate/Atropine [Lomotil 2.5 mg/0.025 mg] 1 tab PO QID PRN 09/23/17 [ History] Melatonin/Pyridoxine HCl (B6) [Melatonin 5 mg Tablet] 5 mg PO HS PRN 09/23/17 [ History] Beclomethasone Diprop 80mcg [QVAR 80 mcg] 1 puff IH BIDR puff 10/09/17 [Rx] Aspirin Enteric Coated [Aspirin EC] 325 mg PO BID #20 tablet. 10/13/17 [Rx] Ibuprofen [Motrin] 600 mg PO BID PRN 10/29/17 [History] 3 Allergy/AdvReac Type Severity Reaction Status Date / Time No Known Allergies Allergy Verified 10/29/17 17:11 All Systems PM: A 10-system review of systems was performed and is negative for pertinent findings except as documented above in the HPI. - Constitutional Constitutional: chills, fever(s), no night sweats - EENT Eyes: no change in vision, no discharge, no pain, no photophobia Ears: no ear discharge, no ear pain, no tinnitus Nose, mouth and throat: no dysphagia, no nasal discharge, no neck pain, no sore throat - Cardiovascular Cardiovascular ROS IM: no chest pain, no diaphoresis, no dyspnea, no lightheadedness, no palpitations, no syncope - Respiratory Respiratory: no cough, no dyspnea, no wheezing, no excessive phlegm production - Gastrointestinal Gastrointestinal: no abdominal pain, no diarrhea, no hematemesis, no hematochezia, no melena, no nausea, no vomiting - Genitourinary Genitourinary: dysuria, no change in urinary stream, no flank pain, no hematuria - Musculoskeletal Musculoskeletal ROS IM: other (Right knee pain after fall), no numbness, no tingling - Integumentary Integumentary IM: no rash, no unusual bruising - Neurological Neurological ROS: no confusion, no convulsions, no focal weakness, no numbness, no tingling, no tremor(s) - Hematologic/Lymphatic Hematologic/Lymphatic: no easy bruising - Constitutional Vitals: Temp Pulse Resp BP Pulse Ox 99.0 F 95 17 89/57 95 10/29/17 20:52 10/29/17 20:52 10/29/17 20:52 10/29/17 20:52 10/29/17 20:52 General appearance: Present: cooperative, mild distress, A&O X 3, morbidly obese , pleasant, answers questions appropriately - Neck Neck exam general surgery: Present: supple, trachea midline. Absent: lymphadenopathy - Respiratory Respiratory exam: Present: CTAB. Absent: accessory muscle use, rales, rhonchi, wheezes - Cardiovascular Cardiovascular exam: Present: RRR, +S1, +S2. Absent: diastolic murmur, gallop, rubs, systolic murmur - GI/Abdominal GI/Abdominal exam: Present: normal bowel sounds, soft, no peritoneal signs. Absent: distended, tenderness - Extremities Exam Extremities exam: Present: warm, radial pulses palpable and symmetrical. Absent : calf tenderness, cyanotic, pedal edema Additional comments: Right knee is bandaged with Richi wrap - Neurological Exam Neurological exam: Present: alert, CN II-XII intact, oriented X3, no focal deficits. Absent: facial droop, speech deficit - Skin Skin exam: Present: dry, intact Internal Med - H&P Results - Labs CBC & Chem 7: 10/29/17 17:16 10/29/17 17:16 - Impressions Impressions Knee X-Ray 10/29/17 15:47 IMPRESSION: 1. No acute osseous abnormality the right knee. 2. Changes of recent total knee arthroplasty with persistent anterior skin swelling and small suprapatellar joint effusion. No evidence of hardware failure or loosening. 3. Healing proximal right fibular diaphyseal fracture in unchanged alignment. D/ / Manuel Cordoba / Manuel Cordoba Interpreting Provider: Manuel Cordoba Chest X-Ray 10/29/17 16:44 IMPRESSION: No acute process. D/ / Javi Griffin MD / Javi Griffin MD Interpreting Provider: Javi Griffin MD
[2017-10-29] MEDS: BuPROPion SR (12 HR) 150 MG TABLET PO SCH (22:05)
[2017-10-29] MEDS: Ringers Solution, Lactated 1,000 ML IVC SCH (22:09)
[2017-10-29] MEDS: (Fluticasone Propionate [Flovent Hfa] 1 PUFF) IH SCH (22:23)
[2017-10-29] MEDS: Beclomethasone 80mcg MDI IH SCH (23:33)
[2017-10-29] MEDS: Nystatin POWDER 30 GM BOTTLE TP SCH (23:50)
[2017-10-29] MEDS: *HR* Enoxaparin 30 MG/0.3 ML SYRINGE SQ SCH (23:50)
[2017-10-30 02:20] LABS: Basophils % 0.3 %; Eosinophils % 0.6 %; Hematocrit 22.8 % (35.3-44.9); Immature Granulocytes % 0.7 % (0-4); Lymphocytes # 0.8 K/mcL (0.6-4.6); Lymphocytes % 11.1 %; Mean Corpuscular Hemoglobin 29.2 pg (28.0-33.3); Mean Corpuscular Volume 91.2 fL (83.0-100.0); Mean Platelet Volume 11.1 fL (9.4-12.4); Monocytes # 0.7 K/mcL (0.0-1.3); Neutrophils # 5.3 K/mcL (1.6-8.9); Platelet Count 173 K/mcL (140-400); Red Cell Distribution Width 15.9 % (11.5-14.5); Segmented Neutrophils % 77.3 %
[2017-10-30 02:25] LABS: Hemoglobin 7.3 g/dL (11.5-15.4)
[2017-10-30 02:40] LABS: BUN/Creatinine Ratio 16 (6-26); Blood Urea Nitrogen 13 mg/dL (6-20); Calcium 7.2 mg/dL (8.6-10.3); Carbon Dioxide 25 mEq/L (23-29); Chloride 107 mEq/L (98-107); Glucose 99 mg/dL (70-105); Osmolality,Calculated 284 (280-300); Potassium 3.2 mEq/L (3.5-5.1); Sodium 137 mEq/L (136-145); eGFR For African Americans > 60 (> 60); eGFR For Non-African Americans > 60 (> 60)
[2017-10-30 03:04] LABS: Ferritin 647 ng/ml (10-120); Iron < 10 mcg/dL (50-170); Transferrin 169 mg/dL (203-362)
[2017-10-30 03:05] LABS: Folate 7.2 ng/mL (3.0-16.0)
[2017-10-30] MEDS: Acetaminophen IV 1,000 MG/100 ML INFUS..BTL IVPB PRN ×2 (04:29→18:53)
[2017-10-30] MEDS: Ringers Solution, Lactated 1,000 ML IVC SCH (04:53)
[2017-10-30] MEDS: *HR* Enoxaparin 30 MG/0.3 ML SYRINGE SQ SCH ×2 (05:51→18:50)
[2017-10-30] MEDS: Beclomethasone 80mcg MDI IH SCH ×2 (08:01→20:43)
--- NOTE | 2017-10-30 08:11 | Orthopedic Consult Note ---
Date of Encounter: 10/30/17 Time of Encounter: 08:10 Assessment and Plan (1) Knee contusion Current Visit: Yes Status: Acute Qualifiers: Encounter type: initial encounter Laterality: right Qualified Code(s): S80.01XA - Contusion of right knee, initial encounter (2) Status post total right knee replacement Current Visit: Yes Status: Chronic Patient to have wound care with cleansing and pressure dressing placed every 8- 12 hours. Immobilizer to be brought from home - unsure if relations from home able to bring brace therefore will work to get immobilizer in place while inpatient. Pain control and medical management per hospitalist team. PT/OT - NO KNEE MOTION. Will continue to follow while inpatient. History of Present Illness Chief complaint: s/p R TKR HPI: Ms. Bundy is a 57 year old female well known to [facility] having a right knee chronic dislocation failing conservative treatment and ultimately requiring right total knee replacement to restore stability and function to the knee on . Patient has been seen by this provider several times since her knee replacement in outpatient setting. Patient was to be wearing knee TROM brace in locked extension with no knee motion however patient has been non compliant with this and admits to falling several times since her replacement. She presented to [facility] ED per patient secondary to continued knee incision drainage however per record was secondary to a fall and was admitted for UTI with developing sepsis. Patient seen today resting comfortably in bed. Patient sleeping upon entering - awakened easily. Patient alert and oriented to person and place but not time. Patient RLE incision intact, rebekah in place, with continued developing erythema surrounding incision now moving from proximal to distal. Ecchymosis on thigh and surrounding knee improved from exam 3 days ago in outpatient office. New ecchymosis noted to medial ankle. No drainage able to be expressed. Patient with continued drainage with motion. No calf tenderness noted bilaterally. Non- pitting edema noted to bilateral lower legs. Neurovascularly intact to bilateral lower extremities. S/p R TKR 10/13/17 Patient to have wound care with cleansing and pressure dressing placed every 8- 12 hours. Immobilizer to be brought from home - unsure if relations from home able to bring brace therefore will work to get immobilizer in place while inpatient. Pain control and medical management per hospitalist team. PT/OT - NO KNEE MOTION. Will continue to follow while inpatient. Past Med Surg Social Fam HX - Past Medical History Medical history: cancer, CHF, hyperlipidemia, thyroid disease, other Psychiatric history: anxiety, depression, previous psychiatric hospitalization - Past Surgical History Surgical History: other, appendectomy - Social History Smoking Status: Current every day smoker Packs per day: 0.7 Smokeless Tobacco Status: No Alcohol use: none Drug use: marijuana - Family History Brother Family Member Ethnicity: Non- Living Status: Still Living Sister Family Member Ethnicity: Non- Living Status: Still Living Father Name: lexi bundy Family Member Ethnicity: Non- Living Status: Age at : 83 Cause of : heart disease Hx Family Cardiac Disorders: Yes Hx Family Respiratory Disorders: Yes Hx Family Cancer: Yes Mother Family Member Ethnicity: Non- Living Status: Still Living Hx Family Neurologic Disorders: Yes (Alzheimer's Disease) Medications and Allergies Atorvastatin [Lipitor] 40 mg PO HS 04/10/15 [History] Sertraline [Zoloft] 100 mg PO DAILY 04/10/15 [History] Levothyroxine [Synthroid] 112 mcg PO QAM 09/01/16 [History] Potassium Chloride [Klor-Con 10] 20 meq PO BID 09/01/16 [History] Mirabegron [Myrbetriq] 50 mg PO DAILY 06/29/17 [History] Furosemide [Lasix] 40 mg PO DAILY #30 07/17/17 [Rx] Pantoprazole Sodium [Protonix] 40 mg PO BID #60 tablet. 07/17/17 [Rx] BuPROPion SR (12 HR) [Wellbutrin SR] 150 mg PO BID 07/26/17 [History] Oxybutynin [Ditropan] 5 mg PO DAILY #30 tablet 08/16/17 [Rx] Amitriptyline [Elavil] 25 mg PO HS 09/19/17 [History] Buspirone HCl [Buspar] 10 mg PO BID 09/19/17 [History] Famotidine [Heartburn Prevention] 20 mg PO DAILY 09/19/17 [History] Fluticasone Propionate [Flovent Hfa] 1 puff IH BID 09/19/17 [History] Nystatin POWDER [Nystop] 1 appl TP BID 09/19/17 [History] Quetiapine Fumarate [Seroquel] 75 mg PO HS 09/19/17 [History] Diphenoxylate/Atropine [Lomotil 2.5 mg/0.025 mg] 1 tab PO QID PRN 09/23/17 [ History] Melatonin/Pyridoxine HCl (B6) [Melatonin 5 mg Tablet] 5 mg PO HS PRN 09/23/17 [ History] Beclomethasone Diprop 80mcg [QVAR 80 mcg] 1 puff IH BIDR puff 10/09/17 [Rx] Aspirin Enteric Coated [Aspirin EC] 325 mg PO BID #20 tablet. 10/13/17 [Rx] Ibuprofen [Motrin] 600 mg PO BID PRN 10/29/17 [History] 3 Allergy/AdvReac Type Severity Reaction Status Date / Time No Known Allergies Allergy Verified 10/29/17 17:11 All Systems Reviewed: The remainder of the systems were reviewed and are negative Physical Exam - Constitutional Vitals: Temp Pulse Resp BP Pulse Ox 98 F 83 16 99/67 95 10/30/17 06:28 10/30/17 06:28 10/30/17 08:03 10/30/17 06:28 10/30/17 08:03 Results - Labs Result Diagrams: 10/30/17 01:17 10/30/17 01:17 Labs: Abnormal lab results RBC 2.50 M/mcL (3.82-4.97) L 10/30/17 01:17 Hgb 7.3 g/dL (11.5-15.4) L D 10/30/17 01:17 Hct 22.8 % (35.3-44.9) L 10/30/17 01:17 RDW 15.9 % (11.5-14.5) H 10/30/17 01:17 ESR 86 mm/hr (0-15) H 10/29/17 17:16 Potassium 3.2 mEq/L (3.5-5.1) L 10/30/17 01:17 Calcium 7.2 mg/dL (8.6-10.3) L 10/30/17 01:17 Iron < 10 mcg/dL (50-170) L 10/30/17 01:17 Transferrin 169 mg/dL (203-362) L 10/30/17 01:17 Ferritin 647 ng/ml (10-120) H 10/30/17 01:17 AST 11 Units/L (13-39) L 10/29/17 17:16 Alkaline Phosphatase 125 Units/L (34-104) H 10/29/17 17:16 C-Reactive Protein 288 mg/L (Less than 10) H 10/29/17 17:16 Serum Total Protein 6.1 g/dL (6.4-8.9) L 10/29/17 17:16 Vitamin B12 166 pg/mL (250-1100) L 10/30/17 01:17 Urine Clarity Cloudy (Clear) A 10/29/17 17:00 Ur Specific [place] 1.009 (1.010-1.025) L 10/29/17 17:00 Urine Nitrite Positive (Negative) A 10/29/17 17:00 Ur Leukocyte Esterase Large (Negative) H 10/29/17 17:00 Urine Microscopic WBC 50-100 per hpf (0-3) H 10/29/17 17:00 Ur Squamous Epith Cells Many per lpf (None-Few) H 10/29/17 17:00 Urine Bacteria Many per hpf (None-Few) H 10/29/17 17:00 Antibody Screen POSITIVE A 10/30/17 03:18 H & H 10/30/17 Range/Units 01:17 Hgb 7.3 L D (11.5-15.4) g/dL Hct 22.8 L (35.3-44.9) % All other labs normal. Consult Discharge Plan - Plan Referrals: Johnie Farley MD [Primary Care Provider] -
[2017-10-30] MEDS: cefTRIAXone 1,000 MG in Water for inj. (sterile) 20 ML 10 ML IVPB SCH (08:47)
[2017-10-30] MEDS: Famotidine 20 MG TABLET PO SCH (08:47)
[2017-10-30] MEDS: BuPROPion SR (12 HR) 150 MG TABLET PO SCH ×2 (08:48→21:56)
[2017-10-30] MEDS: (Mirabegron [Myrbetriq] 50 MG) PO SCH (08:50)
[2017-10-30] MEDS: (Fluticasone Propionate [Flovent Hfa] 1 PUFF) IH SCH (08:50)
[2017-10-30] MEDS: Furosemide 20 MG TABLET PO SCH (08:50)
[2017-10-30] MEDS: Nystatin POWDER 30 GM BOTTLE TP SCH ×2 (08:51→21:59)
[2017-10-30] MEDS ORDERED: Doxycycline 100 MG in 0.9 % Sodium Chloride Mini Bag 100 ML IVPB SCH (09:15)
--- NOTE | 2017-10-30 09:20 | Internal Med Progress Note ---
Date of Encounter: 10/30/17 Time of Encounter: 09:18 - Assessment and plan (1) Sepsis Current Visit: Yes Status: Suspected Assessment and plan: Sepsis secondary to UTI Had a fever of 101.4 upon admission and heart rate of 108, blood pressure dropped to the high 80s IV fluids, send urine culture was not done upon admission Continue Rocephin day #2, received Zosyn and vancomycin at the ER Start doxycycline as the patient urine culture from last month showed MRSA Send right knee fluid culture Qualifiers: Sepsis type: sepsis due to unspecified organism Qualified Code(s): A41.9 - Sepsis, unspecified organism (2) CHF (congestive heart failure) Current Visit: Yes Status: Suspected Assessment and plan: History of diastolic CHF Hold Lasix Qualifiers: Heart failure type: diastolic Heart failure chronicity: chronic Qualified Code(s): I50.32 - Chronic diastolic (congestive) heart failure (3) UTI (urinary tract infection) Current Visit: Yes Status: Acute Qualifiers: Urinary tract infection type: acute cystitis Hematuria presence: without hematuria Qualified Code(s): N30.00 - Acute cystitis without hematuria (4) Hypokalemia Current Visit: No Status: Resolved Assessment and plan: Replete as needed (5) Status post total right knee replacement Current Visit: Yes Status: Chronic (6) Morbid obesity with BMI of 40.0-44.9, adult Current Visit: No Status: Chronic (7) Knee contusion Current Visit: Yes Status: Acute Assessment and plan: Right knee contusion, history of right knee replaced on 10/13/[address] Luong Followed by orthopedic surgery Qualifiers: Encounter type: initial encounter Laterality: right Qualified Code(s): S80.01XA - Contusion of right knee, initial encounter (8) Anal cancer Current Visit: No Status: Chronic Assessment and plan: History of anal rectal cancer (9) Multiple sclerosis Current Visit: No Status: Chronic (10) Acute blood loss anemia Current Visit: No Status: Acute Assessment and plan: Acute blood lows anemia , has been having bleeding from right knee surgical wound Send Hemoccult and continue omeprazole - Subjective Interval history: Complains of right leg pain/knee pain, dysuria, weakness, no chest pain or shortness of breath, had a fever of 101.4 - Constitutional Vitals: Temp Pulse Resp BP Pulse Ox 98 F 83 16 99/67 95 03/12/18 06:28 10/30/17 06:28 10/30/17 08:03 10/30/17 06:28 10/30/17 09:03 General appearance: Present: cooperative, mild distress, A&O X 3, morbidly obese , pleasant, answers questions appropriately - Head Head exam: Present: atraumatic, normocephalic - Eye Eye exam: Present: PERRL, conjuntiva pink, sclera anicteric Pupils: Present: PERRL - Neck Neck exam general surgery: Present: supple, trachea midline. Absent: lymphadenopathy - Respiratory Respiratory exam: Present: CTAB, rhonchi (Diffuse rhonchi). Absent: accessory muscle use, rales, wheezes - Cardiovascular Cardiovascular exam: Present: RRR, +S1, +S2. Absent: diastolic murmur, gallop, rubs, systolic murmur - GI/Abdominal GI/Abdominal exam: Present: normal bowel sounds, soft, no peritoneal signs. Absent: distended, tenderness - Extremities Exam Extremities exam: Present: warm, radial pulses palpable and symmetrical. Absent : calf tenderness, cyanotic, pedal edema - Neurological Exam Neurological exam: Present: CN II-XII intact, oriented X3, no focal deficits. Absent: pronater drift, facial droop, speech deficit - Skin Skin exam: Present: dry. Absent: intact Additional comments: Right knee anterior surgical wound surrounded by erythema draining serosanguineous fluid, very edematous Internal Medicine: Result - Labs CBC & Chem 7: 10/30/17 01:17 10/30/17 01:17 Labs: Short CBC 10/30/17 Range/Units 01:17 WBC 6.9 (4.3-11.1) K/mcL Hgb 7.3 L D (11.5-15.4) g/dL Hct 22.8 L (35.3-44.9) % Plt Count 173 (140-400) K/mcL Neutrophils # 5.3 (1.6-8.9) K/mcL BMP 10/30/17 01:17 Sodium 137 Potassium 3.2 L Chloride 107 Carbon Dioxide 25 BUN 13 Creatinine 0.81 Glucose 99 Calcium 7.2 L Consult Discharge Plan - Plan Referrals: Johnie Farley MD [Primary Care Provider] -
[2017-10-30] MEDS ORDERED: 0.9 % Sodium Chloride 250 ML ONE (09:57)
[2017-10-30 10:52] LABS: Acinetobacter baumannii by PCR Not Detected (Not Detect); Candida albicans by PCR Not Detected (Not Detect); Candida glabrata by PCR Not Detected (Not Detect); Candida krusei by PCR Not Detected (Not Detect); Candida parapsilosis by PCR Not Detected (Not Detect); Candida tropicalis by PCR Not Detected (Not Detect); Enterococcus by PCR Not Detected (Not Detect); Escherichia coli by PCR Not Detected (Not Detect); Klebsiella oxytoca by PCR Not Detected (Not Detect); Klebsiella pneumoniae by PCR Not Detected (Not Detect); Pseudomonas aeruginosa by PCR Not Detected (Not Detect); Serratia marcescens by PCR Not Detected (Not Detect); Staphylococcus aureus by PCR ***DETECTED*** (Not Detect); Streptococcus agalactiae(B)PCR Not Detected (Not Detect); Streptococcus by PCR Not Detected (Not Detect); Streptococcus pneumoniae PCR Not Detected (Not Detect); Streptococcus pyogenes (A) PCR Not Detected (Not Detect); mecA Methicillin-Resist Gene ***DETECTED*** (Not Detect)
[2017-10-30] MEDS: Gabapentin 300 MG CAPSULE PO SCH ×3 (13:12→21:56)
[2017-10-30] MEDS ORDERED: Gabapentin 300 MG CAPSULE PO SCH (15:00)
[2017-10-30 16:10] LABS: Hematocrit 28.7 % (35.3-44.9)
[2017-10-31] MEDS: (Fluticasone Propionate [Flovent Hfa] 1 PUFF) IH SCH ×3 (00:41→21:42)
[2017-10-31 06:28] LABS: Hematocrit 24.4 % (35.3-44.9); Hemoglobin 7.9 g/dL (11.5-15.4); Mean Corpuscular HGB Conc 32.4 g/dL (31.6-35.5); Mean Corpuscular Volume 89.7 fL (83.0-100.0); Mean Platelet Volume 10.5 fL (9.4-12.4); Platelet Count 142 K/mcL (140-400); Red Blood Count 2.72 M/mcL (3.82-4.97); Red Cell Distribution Width 15.7 % (11.5-14.5)
[2017-10-31 06:50] LABS: BUN/Creatinine Ratio 12 (6-26); Blood Urea Nitrogen 9 mg/dL (6-20); Calcium 6.9 mg/dL (8.6-10.3); Carbon Dioxide 23 mEq/L (23-29); Chloride 108 mEq/L (98-107); Glucose 92 mg/dL (70-105); Osmolality,Calculated 280 (280-300); Potassium 3.5 mEq/L (3.5-5.1); Sodium 136 mEq/L (136-145); eGFR For African Americans > 60 (> 60); eGFR For Non-African Americans > 60 (> 60)
[2017-10-31] MEDS: *HR* Enoxaparin 30 MG/0.3 ML SYRINGE SQ SCH ×2 (07:37→14:18)
--- NOTE | 2017-10-31 08:16 | Orthopedics Progress Note ---
Date of Encounter: 10/31/17 Time of Encounter: 08:16 Subjective Interval history: Patient seen this morning incision clean dry and intact no active bleeding no significant swelling. Patient to continue with immobilization of right knee. Weightbearing as tolerated. Objective Vital signs: Vital Signs Temp Pulse Resp BP Pulse Ox 10/31/17 06:42 99.4 F 102 20 122/75 100 10/31/17 05:25 97.8 F 102 18 103/64 97 10/30/17 23:34 97.8 F 91 18 107/61 94 10/30/17 21:43 98.9 F 101 18 95/65 93 10/30/17 20:45 18 94 10/30/17 20:23 100.1 F H 110 20 97/62 93 10/30/17 18:57 102.8 F H 115 20 121/71 96 Intake and Output 10/30/17 10/31/17 10/31/17 23:59 07:59 15:59 Intake Total 550 / 550 Output Total 400 / 400 700 / 700 Balance 150 / 150 -700 / -700 Intake: IV Fluids 310 / 310 0.9 % Sodium Chloride 250 ML @ 50 / 50 0 mls/hr .ROUTE .STK-MED [facility] Rx #:[id number] Vancocin 1,500 MG In 0.9 % 250 / 250 Sodium Chloride 250 ML @ 167 mls/hr IVPB Q12H [facility] Rx#: [id number] Rocephin 1,000 MG In Water for 10 / 10 inj. (sterile) 10 ML @ 300 mls/ hr IVPB DAILY [facility] Rx#: [id number] Tube Feeding 240 / 240 Output: Urine 400 / 400 600 / 600 Stool 100 / 100 Other: Stool Size Smear Stool Consistency formed Stool Characteristics Normal for Patient Stool Color Brown # Voids 1 1 # Bowel Movements 1 Weight 106.6 kg Patient Weight 10/31/17 23:59 Weight 106.6 kg - Labs CBC & BMP: 10/31/17 06:09 10/31/17 06:09 Labs: Abnormal lab results RBC 2.72 M/mcL (3.82-4.97) L 10/31/17 06:09 Hgb 7.9 g/dL (11.5-15.4) L 10/31/17 06:09 Hct 24.4 % (35.3-44.9) L 10/31/17 06:09 RDW 15.7 % (11.5-14.5) H 10/31/17 06:09 ESR 86 mm/hr (0-15) H 10/29/17 17:16 Chloride 108 mEq/L (98-107) H 10/31/17 06:09 Calcium 6.9 mg/dL (8.6-10.3) L 10/31/17 06:09 Iron < 10 mcg/dL (50-170) L 10/30/17 01:17 Transferrin 169 mg/dL (203-362) L 10/30/17 01:17 Ferritin 647 ng/ml (10-120) H 10/30/17 01:17 AST 11 Units/L (13-39) L 10/29/17 17:16 Alkaline Phosphatase 125 Units/L (34-104) H 10/29/17 17:16 C-Reactive Protein 288 mg/L (Less than 10) H 10/29/17 17:16 Serum Total Protein 6.1 g/dL (6.4-8.9) L 10/29/17 17:16 Vitamin B12 166 pg/mL (250-1100) L 10/30/17 01:17 Urine Clarity Cloudy (Clear) A 10/29/17 17:00 Ur Specific [place] 1.009 (1.010-1.025) L 10/29/17 17:00 Urine Nitrite Positive (Negative) A 10/29/17 17:00 Ur Leukocyte Esterase Large (Negative) H 10/29/17 17:00 Urine Microscopic WBC 50-100 per hpf (0-3) H 10/29/17 17:00 Ur Squamous Epith Cells Many per lpf (None-Few) H 10/29/17 17:00 Urine Bacteria Many per hpf (None-Few) H 10/29/17 17:00 Staphylococcus sp PCR DETECTED (Not Detect) A 10/29/17 17:16 Staph aureus (PCR) DETECTED (Not Detect) A 10/29/17 17:16 mecA-Methicil Res Gene DETECTED (Not Detect) A 10/29/17 17:16 Antibody Screen POSITIVE A 10/30/17 03:18 Consult Discharge Plan - Plan Referrals: Johnie Farlye MD [Primary Care Provider] -
[2017-10-31] MEDS: cefTRIAXone 1,000 MG in Water for inj. (sterile) 20 ML 10 ML IVPB SCH (09:44)
[2017-10-31] MEDS: Gabapentin 300 MG CAPSULE PO SCH ×3 (09:46→21:43)
[2017-10-31] MEDS: BuPROPion SR (12 HR) 150 MG TABLET PO SCH ×2 (09:46→21:43)
[2017-10-31] MEDS: Famotidine 20 MG TABLET PO SCH (09:46)
[2017-10-31] MEDS: Acetaminophen 325 MG TABLET PO PRN ×2 (09:47→18:31)
[2017-10-31] MEDS: (Mirabegron [Myrbetriq] 50 MG) PO SCH (09:47)
[2017-10-31] MEDS: Nystatin POWDER 30 GM BOTTLE TP SCH ×2 (09:49→21:42)
[2017-10-31] MEDS: Beclomethasone 80mcg MDI IH SCH ×2 (10:56→20:37)
[2017-10-31] MEDS: Diphenoxylate/Atropine 1 TAB TABLET PO PRN (12:35)
--- NOTE | 2017-10-31 13:04 | Internal Med Progress Note ---
Date of Encounter: 10/31/17 Time of Encounter: 13:03 - Assessment and plan (1) Sepsis Current Visit: Yes Status: Suspected Assessment and plan: Sepsis secondary to MRSA bacteremia , UTI Had a fever of 101.4 upon admission and heart rate of 108, blood pressure dropped to the 80s IV fluids, sent urine culture was not done upon admission, growing E coli urine culture from last month showed MRSA Continue Rocephin day #3, received Zosyn and vancomycin at the ER VOntinue Vancomycin IV day 2 ID consult Sent right knee fluid culture, growing SA Qualifiers: Sepsis type: sepsis due to unspecified organism Qualified Code(s): A41.9 - Sepsis, unspecified organism (2) Bacteremia Current Visit: Yes Status: Acute Assessment and plan: possible MRSA bacteremia, ECHO did not show vegetations IV vancomycin (3) UTI (urinary tract infection) Current Visit: Yes Status: Acute Qualifiers: Urinary tract infection type: acute cystitis Hematuria presence: without hematuria Qualified Code(s): N30.00 - Acute cystitis without hematuria (4) Status post total right knee replacement Current Visit: Yes Status: Chronic Assessment and plan: Right knee contusion, history of right knee replaced on 10/13/[address] Luong Followed by orthopedic surgery (5) CHF (congestive heart failure) Current Visit: Yes Status: Suspected Assessment and plan: History of diastolic CHF Hold Lasix Qualifiers: Heart failure type: diastolic Heart failure chronicity: chronic Qualified Code(s): I50.32 - Chronic diastolic (congestive) heart failure (6) Acute blood loss anemia Current Visit: No Status: Acute Assessment and plan: Acute blood lows anemia , has been having bleeding from right knee surgical wound Hemoccult was negative trasfuse 1 unit of RBCs, monitor cbc continue omeprazole (7) Hypokalemia Current Visit: No Status: Acute (8) Anal cancer Current Visit: No Status: Chronic (9) Multiple sclerosis Current Visit: No Status: Chronic - Subjective Interval history: Complains of less right leg pain/knee pain, dysuria, weakness, no chest pain or shortness of breath, had a fever of 101.4 on 10/30/17 - Constitutional Vitals: Temp Pulse Resp BP Pulse Ox 99.2 F 74 18 123/80 96 10/31/17 11:32 10/31/17 11:32 10/31/17 11:32 10/31/17 11:32 10/31/17 11:32 General appearance: Present: cooperative, mild distress, A&O X 3, morbidly obese , pleasant, answers questions appropriately Exam: - Head Head exam: Present: atraumatic, normocephalic - Eye Eye exam: Present: PERRL, conjuntiva pink, sclera anicteric Pupils: Present: PERRL - Neck Neck exam general surgery: Present: supple, trachea midline. Absent: lymphadenopathy - Respiratory Respiratory exam: Present: CTAB, rhonchi (Diffuse rhonchi). Absent: accessory muscle use, rales, wheezes - Cardiovascular Cardiovascular exam: Present: RRR, +S1, +S2. Absent: diastolic murmur, gallop, rubs, systolic murmur - GI/Abdominal GI/Abdominal exam: Present: normal bowel sounds, soft, no peritoneal signs. Absent: distended, tenderness - Extremities Exam Extremities exam: Present: warm, radial pulses palpable and symmetrical. Absent : calf tenderness, cyanotic, pedal edema - Neurological Exam Neurological exam: Present: CN II-XII intact, oriented X3, no focal deficits. Absent: pronater drift, facial droop, speech deficit - Skin Skin exam: Present: dry. Absent: intact Additional comments: Right knee anterior surgical wound surrounded by erythema draining serosanguineous fluid, very edematous Internal Medicine: Result - Labs CBC & Chem 7: 10/31/17 06:09 10/31/17 06:09 Labs: Short CBC 10/31/17 Range/Units 06:09 WBC 4.8 (4.3-11.1) K/mcL Hgb 7.9 L (11.5-15.4) g/dL Hct 24.4 L (35.3-44.9) % Plt Count 142 (140-400) K/mcL [facility] 10/31/17 06:09 Sodium 136 Potassium 3.5 Chloride 108 H Carbon Dioxide 23 BUN 9 Creatinine 0.76 Glucose 92 Calcium 6.9 L Consult Discharge Plan - Plan Referrals: Johnie Farley MD [Primary Care Provider] -
[2017-10-31] MEDS ORDERED: 0.9 % Sodium Chloride 250 ML ONE (13:44)
[2017-10-31] MEDS: *HR* OxyCODONE Immed Rel 5 MG TABLET PO PRN ×2 (14:05→18:28)
--- NOTE | 2017-10-31 15:32 | Infectious Disease Consult ---
Date of Encounter: 10/31/17 Time of Encounter: 15:29 Assessment and Plan (1) Sepsis Status: Suspected Assessment and plan: The patient had two SIRS criteria on admission. Likely secondary to bacteremia and right knee infection. Improved. Afebrile x 24 hours. Continues to have intermittent tachycardia. Blood cultures drawn 10/29/17 are positive 2/2 sets for MRSA. Qualifiers: Sepsis type: sepsis due to unspecified organism Qualified Code(s): A41.9 - Sepsis, unspecified organism (2) Bacteremia Status: Acute Assessment and plan: Causative organism: MRSA. Source likely the right knee surgical site. Complicated due to presence of right knee hardware. Blood cultures drawn 10/29/17 are positive 2/2 sets for MRSA. Repeat blood cultures drawn 10/30/17 are pending x 2 sets. X-ray of the right knee showed persistent anterior skin swelling and a small suprapatellar joint effusion. ESR 86, CRP 288, but elevation could be secondary to recent surgery. No endocarditis stigmata noted on exam. She has one major and one minor Modified De La Cruz's Criteria. TTE was negative. May need to consider EVER prior to discharge. Continue Vancomycin IV. Pharmacy to dose. Goal trough ~15. Vanc trough ordered for tonight at 2300. Duration of treatment depends on the clinical picture, but likely 4-6 weeks due to the complicated nature of the infection. Monitor renal function and for drug toxicity and dose-adjust antibiotics. Continue contact precautions per protocol. (3) Infection of right knee Status: Acute Assessment and plan: Causative organism: MRSA per swab culture. Per nursing, swab culture obtained of drainage from the knee. Likely secondary to recent surgical procedure. Acute onset. Unsure if the hardware is involved or not. Ortho consulted. Await further recommendations from them. Consider additional imaging, such as a CT to evaluate as the x-ray does not show evidence of joint infection. May need to consider aspiration of the joint. If able to aspirate, send fluid for culture (aerobic and anaerobic), cell count with differential, LDH, and protein. Continue antibiotics as above. Wound care and activity restrictions per the ortho team. (4) UTI (urinary tract infection) Status: Acute Assessment and plan: Causative organism: E. coli. Continue Rocephin 1 gram IV daily for now. Await sensitivities. De-escalate if/when able. Duration of treatment depends on the clinical picture. Qualifiers: Urinary tract infection type: acute cystitis Hematuria presence: without hematuria Qualified Code(s): N30.00 - Acute cystitis without hematuria (5) Hypokalemia Status: Resolved (6) Anemia Status: Chronic Assessment and plan: Etiology unclear. Hgb down to 7.9 this morning. FOBT negative. Further evaluation and treatment per the primary team. Qualifiers: Anemia type: unspecified type Qualified Code(s): D64.9 - Anemia, unspecified (7) Status post total right knee replacement Status: Chronic Assessment and plan: Status post right total knee replacement 10/13/[address] Luong. (8) Morbid obesity with BMI of 40.0-44.9, adult Status: Chronic (9) Multiple sclerosis Status: Chronic Infectious Disease HPI - Data of Consult Patient: new to practice Consult date: 10/31/17 Requesting Physician: Destinee Don Primary Care Provider: Johnie Farley MD - Consult Narrative Reason for consult: Bacteremia History of present illness: Ms. Bundy is a 57 year old female with a past medical history of multiple sclerosis diagnosed 10 years ago currently on Myrbetriq, hypertension, CHF, hypothyroidism, and remote history of anal cancer status post chemotherapy, radiation, and resection of the tumor about 12 years ago. The patient is status post right total knee replacement on 10/13/[address] Luong. She was admitted to the hospital October 29 for sepsis and right knee pain and UTI. We are consulted October 31. Chronic recommendations for MRSA bacteremia. Briefly, the patient's a 57-year-old female with past medical history as stated above. The patient suffered from right knee chronic dislocation and failed conservative treatment and therefore underwent a right total knee replacement on October [address] Luong. She states since then she has had bloody drainage from the surgical site, but was otherwise doing well. She states that on the day of admission she suffered a fall when she stood up from the toilet and got dizzy and lost her balance. She states she landed on her knee. She presented to the emergency department for evaluation where she was noted to be tachycardic and febrile. Her white blood cell count was normal with no differential. She will hypokalemia. She also had an elevated ESR 86 and CRP of 288. Showed a right knee x-ray that showed for PET persistent anterior skin swelling and a small suprapatellar joint effusion. Chest x-ray was negative. Urinalysis was obtained but appeared contaminated. It was sent off for culture growing Escherichia coli. Blood cultures were obtained 2 sets and are both positive for MRSA. She was noted to the hospital and started on empiric antibiotics for presumed UTI. Since admission, the patient did spike a fever yesterday with a MAXIMUM TEMPERATURE of 102.8. Her white blood cell count remains normal. Her hypokalemia has resolved. She had her right knee wound culture that came back positive for MRSA area and blood cultures were repeated yesterday 2 sets and are pending. She had a transthoracic echocardiogram that showed no valvular vegetations and an EF of 65%. An additional set of blood cultures are ordered to be collected today. She is a Vanc trough ordered to be drawn before her midnight dose tonight. Currently, she is on IV vancomycin and IV Rocephin. We been asked to evaluate and make further recommendations. During my exam today, the patient states that for the past week she has had subjective fevers and chills and shivers. She does not have a thermometer at home and was not able to take her temperatures but states that she took some Tylenol to help with the fever. She reports dizziness, worse upon standing suddenly. She denies any headache or neck pain. She denies any congestion, earache, or sore throat. She denies any chest pain, shortness of breath, or cough. She reports chronic nausea and chronic stool incontinence since her anal cancer treatment. She denies any constipation or abdominal pain prior to admission. She does report that she had an episode of left lower quadrant abdominal pain last night, but has not had any since then. She states her appetite has not been very good for the past couple of days prior to admission. She does report that she had some difficulty starting her urine stream on the day of admission, but denies any hematuria or dysuria. She states she felt like she had to bear down when she is having a bowel movement to start her urine stream. She reports a yeastlike rash to her abdominal folds for which she uses nystatin powder. She reports increased redness around the surgical site the past 2 or 3 days prior to admission. She reports that she has had persistent drainage since surgery that has been bloody and oftentimes saturates her dressing. She denies any foul odor or pus like drainage from the wound. She reports chronic numbness and tingling to her distal extremity secondary to her multiple sclerosis. She denies any oral thrush. The patient lives at home with her boyfriend here in [place]. She reports that she smokes about a pack of cigarettes per day. She does not have any pets. She denies any recent travel. She denies any alcohol use. She does report that she smokes marijuana almost daily. CC: Destinee Don Past Med Surg Social Fam HX - Past Medical History Attestation: Yes The following information was validated with the patient. Source: patient, old records reviewed, nursing notes reviewed Medical history: cancer (Anal Cancer s/p resection, chemo and radiation), CHF, hyperlipidemia, thyroid disease, other Psychiatric history: anxiety, depression, previous psychiatric hospitalization - Past Surgical History Surgical History: appendectomy, knee replacement (Right TKR 10/13/17), other ( Anal cancer resection) - Social History Smoking Status: Current every day smoker Packs per day: 0.7 Smokeless Tobacco Status: No Alcohol use: none Drug use: marijuana Occupational status: disabled Current living situation: Home, With Family Activity Level: Uses cane/walker Recent Out of Country Travel Within the Last 8 Weeks: No Exposure or Possible Exposure to Illness During Travel: No - Family History Brother Family Member Ethnicity: Non- Living Status: Still Living Sister Family Member Ethnicity: Non- Living Status: Still Living Father Name: lexi bundy Family Member Ethnicity: Non- Living Status: Age at : 83 Cause of : heart disease Hx Family Cardiac Disorders: Yes Hx Family Respiratory Disorders: Yes Hx Family Cancer: Yes Mother Family Member Ethnicity: Non- Living Status: Still Living Hx Family Neurologic Disorders: Yes (Alzheimer's Disease) Infectious Disease-CN:Meds Atorvastatin [Lipitor] 40 mg PO HS 04/10/15 [History] Sertraline [Zoloft] 100 mg PO DAILY 04/10/15 [History] Levothyroxine [Synthroid] 112 mcg PO QAM 09/01/16 [History] Potassium Chloride [Klor-Con 10] 20 meq PO BID 09/01/16 [History] Mirabegron [Myrbetriq] 50 mg PO DAILY 06/29/17 [History] Furosemide [Lasix] 40 mg PO DAILY #30 07/17/17 [Rx] Pantoprazole Sodium [Protonix] 40 mg PO BID #60 tablet. 07/17/17 [Rx] BuPROPion SR (12 HR) [Wellbutrin SR] 150 mg PO BID 07/26/17 [History] Oxybutynin [Ditropan] 5 mg PO DAILY #30 tablet 08/16/17 [Rx] Amitriptyline [Elavil] 25 mg PO HS 09/19/17 [History] Buspirone HCl [Buspar] 10 mg PO BID 09/19/17 [History] Famotidine [Heartburn Prevention] 20 mg PO DAILY 09/19/17 [History] Fluticasone Propionate [Flovent Hfa] 1 puff IH BID 09/19/17 [History] Nystatin POWDER [Nystop] 1 appl TP BID 09/19/17 [History] Quetiapine Fumarate [Seroquel] 75 mg PO HS 09/19/17 [History] Diphenoxylate/Atropine [Lomotil 2.5 mg/0.025 mg] 1 tab PO QID PRN 09/23/17 [ History] Melatonin/Pyridoxine HCl (B6) [Melatonin 5 mg Tablet] 5 mg PO HS PRN 09/23/17 [ History] Beclomethasone Diprop 80mcg [QVAR 80 mcg] 1 puff IH BIDR puff 10/09/17 [Rx] Aspirin Enteric Coated [Aspirin EC] 325 mg PO BID #20 tablet. 10/13/17 [Rx] Ibuprofen [Motrin] 600 mg PO BID PRN 10/29/17 [History] 3 Allergy/AdvReac Type Severity Reaction Status Date / Time No Known Allergies Allergy Verified 10/29/17 17:11 All systems: reviewed and no additional remarkable complaints except as stated Exam - Constitutional Vitals: Temp Pulse Resp BP Pulse Ox 98.2 F 92 16 109/70 96 10/31/17 14:04 10/31/17 14:04 10/31/17 14:04 10/31/17 14:04 10/31/17 11:32 General appearance: cooperative, no acute distress - Head Head exam: Present: atraumatic, normal inspection, normocephalic - Eye Eye exam: Present: EOMI, normal appearance, PERRL Pupils: Present: normal accommodation Additional comments: No subconjunctival hemorrhage noted. - ENT ENT exam: Present: mucous membranes moist - Neck Neck exam: Present: normal inspection - Respiratory Respiratory exam: Present: CTAB. Absent: rales, respiratory distress, rhonchi, wheezes - Cardiovascular Cardiovascular exam: Present: RRR, +S1, +S2 - GI/Abdominal GI/Abdominal exam: Present: distended (obese), normal bowel sounds, soft. Absent: tenderness Additional comments: Intertriginous candidiasis noted to the abdominal skin fold. - Extremities Exam Extremities exam: Present: joint swelling (right knee), pedal edema (1+ BLE). Absent: tenderness (Mild, right knee) Additional comments: Surgical site noted to right anterior knee with rebekah intact. Mild erythema and tenderness noted surrounding the surgical site. Moderate amount of blood drainage noted on the dressing. Small amount of serosanguinous drainage noted from the surgical site upon palpation. - Back Exam Back exam: Present: vertebral tenderness (Lumbar spine - chronic). Absent: paraspinal tenderness - Neurological Exam Neurological exam: Present: alert, oriented X3, no focal deficits - Psychiatric Psychiatric exam: Present: normal affect, normal mood - Skin Skin exam: Present: dry, intact, normal color, warm Additional comments: No endocarditis stigmata noted. Infectious Disease CN: Results - Labs CBC & Chem 7: 10/31/17 06:09 10/31/17 06:09 Cultures: Cultures 10/30/17 10:16 Wound Culture - Preliminary Right Knee Staphylococcus aureus 10/29/17 17:30 Urine Culture - Preliminary Urine,Clean Catch Escherichia coli 10/29/17 17:05 Blood Culture - Preliminary Peripheral Venipuncture Gram Positive Cocci 10/29/17 17:16 Blood Culture - Preliminary Peripheral Venipuncture Gram Positive Cocci Serology: Serology 10/30/17 10/29/17 10/29/17 Range/Units 10:20 17:16 17:00 Urine Color Yellow (Yellow) Urine Clarity Cloudy A (Clear) Urine pH 6.5 (5.0-8.0) pH Units Ur Specific [place] 1.009 L (1.010-1.025) Urine Protein Negative (Neg-Trace) mg/dL Urine Glucose (UA) Normal (Normal) mg/dL Urine Ketones Negative (Negative) mg/dL Urine Blood Negative (Negative) Urine Nitrite Positive A (Negative) Urine Bilirubin Negative (Negative) Urine Urobilinogen Normal (Normal) mg/dL Ur Leukocyte Esterase Large H (Negative) Urine Microscopic RBC 0-3 (0-3) per hpf Urine Microscopic WBC 50-100 H (0-3) per hpf Ur Squamous Epith Cells Many H (None-Few) per lpf Urine Bacteria Many H (None-Few) per hpf Hyaline Casts None Seen (None-Few) per lpf Ur Culture Indicated? NO. (NO) Stool Occult Blood Negative (Negative) A. baumannii (PCR) Not Detected (Not Detect) Kaylyn albicans (PCR) Not Detected (Not Detect) C. glabrata (PCR) Not Detected (Not Detect) C. krusei (PCR) Not Detected (Not Detect) C. parapsilosis (PCR) Not Detected (Not Detect) C. tropicalis (PCR) Not Detected (Not Detect) Enterobacteriac sp PCR Not Detected (Not Detect) E. cloacae complex PCR Not Detected (Not Detect) Enterococcus sp PCR Not Detected (Not Detect) E. coli (PCR) Not Detected (Not Detect) H. influenzae (PCR) Not Detected (Not Detect) Klebsiella oxytoca PCR Not Detected (Not Detect) Klebsiella pneumoniae Not Detected (Not Detect) List. monocytogenes PCR Not Detected (Not Detect) N. meningitidis (PCR) Not Detected (Not Detect) Proteus species (PCR) Not Detected (Not Detect) Serratia marcescens PCR Not Detected (Not Detect) Staphylococcus sp PCR DETECTED A (Not Detect) Staph aureus (PCR) DETECTED A (Not Detect) mecA-Methicil Res Gene DETECTED A (Not Detect) Streptococcus sp PCR Not Detected (Not Detect) Group A Strep DNA Not Detected (Not Detect) Group B Strep (PCR) Not Detected (Not Detect) Strep pneumoniae (PCR) Not Detected (Not Detect) P. aeruginosa (PCR) Not Detected (Not Detect) Ciro/B-Vanco Res Genes N/A (Not Detect) KPC (blaKPC) Detect PCR N/A (Not Detect) Consult Discharge Plan - Plan Referrals: Johnie Farley MD [Primary Care Provider] - - Attending Attestation I examined this patient and my medical decision-making was reviewed with the Resident Physician. I agree with the documented findings, disposition and treatment plan as described except to the extent set forth below. This is an addendum to original report dictated by Anne Hanson CNP. Please refer to Bettie pearson for full detail. Patient is a 57-year-old woman with past medical history mentioned below who apparently came in to see orthopedics back in September with a dislocated knee. Patient was taken for total knee arthroplasty on October 13 of this year. Postop patient tells me that she continues to have drainage and bleeding from the surgical wound. Patient is not the best historian. Patient failed to tell me that she did fall and hurt her knee. Patient also was having fevers and chills and rigors at home. Patient came into the emergency department for evaluation. Since admission patient has been bacteremia with MRSA 2 out of 2 sets positive. Patient also had a UTI with Escherichia coli. Apparently patient has significant purulent drainage from the knee which the nurse sent for cultures and grew MRSA as well. I did ask this information to [facility] and they said they will tap the knee of the patient today. Clinically patient is having rigors but otherwise alert and oriented did answers questions well command is being infused 1 unit of packed RBCs. Rest of the physical exam is unremarkable. Knee is surgically wrapped and I did not physically unwrap it but my nurse practitioner Ivan and I saw pictures which shows intact surgical wound with surrounding erythema but no active drainage or bleeding. At this point continue with vancomycin goal vancomycin trough 15-20 Repeat blood cultures to make sure bacteremia resolved Patient is having any arthrocentesis done we will send for Gram stain cultures chemistry Patient will need a EVER prior to discharge Duration of treatment at least 4 weeks We will decide if that means a washout based on the arthrocentesis results We are aware that the patient has been on antibiotics for 48 hours we will see what the arthrocentesis shows anyways.
--- NOTE | 2017-10-31 15:58 | Event Note ---
Date of Encounter: 10/31/17 Time of Encounter: 15:57 Patient doing well - In Tscope brace. Pain controlled.
[2017-10-31 20:51] LABS: Hematocrit 28.5 % (35.3-44.9); Hemoglobin 8.9 g/dL (11.5-15.4)
[2017-10-31] MEDS: Melatonin 3 MG TABLET PO SCH (23:50)
[2017-11-01] MEDS: *HR* OxyCODONE Immed Rel 5 MG TABLET PO PRN ×3 (01:01→20:26)
[2017-11-01 06:02] LABS: Hematocrit 26.2 % (35.3-44.9); Hemoglobin 8.5 g/dL (11.5-15.4); Mean Corpuscular HGB Conc 32.4 g/dL (31.6-35.5); Mean Corpuscular Hemoglobin 28.9 pg (28.0-33.3); Mean Corpuscular Volume 89.1 fL (83.0-100.0); Mean Platelet Volume 11.1 fL (9.4-12.4); Platelet Count 153 K/mcL (140-400); Red Blood Count 2.94 M/mcL (3.82-4.97)
[2017-11-01 06:22] LABS: BUN/Creatinine Ratio 8 (6-26); Blood Urea Nitrogen 6 mg/dL (6-20); Calcium 7.1 mg/dL (8.6-10.3); Carbon Dioxide 23 mEq/L (23-29); Chloride 108 mEq/L (98-107); Glucose 95 mg/dL (70-105); Osmolality,Calculated 285 (280-300); Potassium 3.2 mEq/L (3.5-5.1); Sodium 139 mEq/L (136-145); eGFR For African Americans > 60 (> 60); eGFR For Non-African Americans > 60 (> 60)
--- NOTE | 2017-11-01 06:38 | Orthopedics Progress Note ---
Date of Encounter: 11/01/17 Time of Encounter: 06:38 Subjective Interval history: Patient seen this morning incision clean dry and intact no active drainage. Patient had aspiration yesterday Gram stain negative for bacteria. We will await culture results. Objective Vital signs: Vital Signs Temp Pulse Resp BP Pulse Ox 11/01/17 05:07 99 F 107 19 135/81 95 10/31/17 23:12 98.4 F 100 19 112/73 96 10/31/17 20:37 18 96 10/31/17 19:16 99.8 F H 109 19 121/76 96 10/31/17 16:54 99.7 F H 92 16 124/82 99 10/31/17 14:04 98.2 F 92 16 109/70 10/31/17 13:55 98.3 F 100 15 104/70 10/31/17 11:32 99.2 F 74 18 123/80 96 10/31/17 10:56 16 99 10/31/17 10:14 100 10/31/17 06:42 99.4 F 102 20 122/75 100 Intake and Output 10/31/17 10/31/17 11/01/17 15:59 23:59 07:59 Intake Total 850 / 850 350 / 350 Output Total 500 / 500 600 / 600 Balance 350 / 350 350 / 350 -600 / -600 Intake: IV Fluids 250 / 250 Vancocin 1,500 MG In 0.9 % 250 / 250 Sodium Chloride 250 ML @ 167 mls/hr IVPB Q12H [facility] Rx#: [id number] Oral 600 / 600 Blood Product 0 / 0 350 / 350 Rbcs Leuko Poor As-1 Unit 0 / 0 350 / 350 [id number] Output: Urine 500 / 500 600 / 600 Other: Meal Lunch Percent of Meal Consumed 95% Stool Size Small Stool Consistency liquid Stool Color Brown # Voids 1 1 # Bowel Movements 1 - Labs CBC & BMP: 11/01/17 05:19 11/01/17 05:19 Labs: Abnormal lab results WBC 4.0 K/mcL (4.3-11.1) L 11/01/17 05:19 RBC 2.94 M/mcL (3.82-4.97) L 11/01/17 05:19 Hgb 8.5 g/dL (11.5-15.4) L 11/01/17 05:19 Hct 26.2 % (35.3-44.9) L 11/01/17 05:19 RDW 16.0 % (11.5-14.5) H 11/01/17 05:19 ESR 86 mm/hr (0-15) H 10/29/17 17:16 Potassium 3.2 mEq/L (3.5-5.1) L 11/01/17 05:19 Chloride 108 mEq/L (98-107) H 11/01/17 05:19 Calcium 7.1 mg/dL (8.6-10.3) L 11/01/17 05:19 Iron < 10 mcg/dL (50-170) L 10/30/17 01:17 Transferrin 169 mg/dL (203-362) L 10/30/17 01:17 Ferritin 647 ng/ml (10-120) H 10/30/17 01:17 AST 11 Units/L (13-39) L 10/29/17 17:16 Alkaline Phosphatase 125 Units/L (34-104) H 10/29/17 17:16 C-Reactive Protein 288 mg/L (Less than 10) H 10/29/17 17:16 Serum Total Protein 6.1 g/dL (6.4-8.9) L 10/29/17 17:16 Vitamin B12 166 pg/mL (250-1100) L 10/30/17 01:17 Urine Clarity Cloudy (Clear) A 10/29/17 17:00 Ur Specific [place] 1.009 (1.010-1.025) L 10/29/17 17:00 Urine Nitrite Positive (Negative) A 10/29/17 17:00 Ur Leukocyte Esterase Large (Negative) H 10/29/17 17:00 Urine Microscopic WBC 50-100 per hpf (0-3) H 10/29/17 17:00 Ur Squamous Epith Cells Many per lpf (None-Few) H 10/29/17 17:00 Urine Bacteria Many per hpf (None-Few) H 10/29/17 17:00 Staphylococcus sp PCR DETECTED (Not Detect) A 10/29/17 17:16 Staph aureus (PCR) DETECTED (Not Detect) A 10/29/17 17:16 mecA-Methicil Res Gene DETECTED (Not Detect) A 10/29/17 17:16 Antibody Screen POSITIVE A 10/30/17 03:18 Consult Discharge Plan - Plan Referrals: Johnie Farley MD [Primary Care Provider] -
[2017-11-01] MEDS: *HR* Enoxaparin 30 MG/0.3 ML SYRINGE SQ SCH ×2 (06:41→15:52)
[2017-11-01] MEDS: Beclomethasone 80mcg MDI IH SCH ×2 (08:17→20:53)
[2017-11-01] MEDS: cefTRIAXone 1,000 MG in Water for inj. (sterile) 20 ML 10 ML IVPB SCH (08:49)
[2017-11-01] MEDS: Famotidine 20 MG TABLET PO SCH (08:49)
[2017-11-01] MEDS: Gabapentin 300 MG CAPSULE PO SCH ×3 (08:49→20:25)
[2017-11-01] MEDS: BuPROPion SR (12 HR) 150 MG TABLET PO SCH ×2 (08:49→20:26)
[2017-11-01] MEDS: (Fluticasone Propionate [Flovent Hfa] 1 PUFF) IH SCH ×2 (08:51→20:27)
[2017-11-01] MEDS: Nystatin POWDER 30 GM BOTTLE TP SCH ×2 (08:52→20:27)
[2017-11-01] MEDS: (Mirabegron [Myrbetriq] 50 MG) PO SCH (08:52)
--- NOTE | 2017-11-01 12:22 | Internal Med Progress Note ---
Date of Encounter: 11/01/17 Time of Encounter: 12:16 - Assessment and plan (1) Sepsis Current Visit: Yes Status: Suspected Assessment and plan: Sepsis secondary to MRSA bacteremia and possible MRSA right knee infection , E coli UTI Had a fever of 101.4 upon admission and heart rate of 108, blood pressure dropped to the 80s IV fluids, sent urine culture was not done upon admission, growing E coli urine culture from last month showed MRSA Stop Rocephin day #4, received Zosyn and vancomycin at the ER Continue Vancomycin IV day 3 ID consulted, recommending 4-6 weeks of vanc Right knee fluid culture, growing MRSA Qualifiers: Sepsis type: sepsis due to unspecified organism Qualified Code(s): A41.9 - Sepsis, unspecified organism (2) Bacteremia Current Visit: Yes Status: Acute Assessment and plan: possible MRSA bacteremia, ECHO did not show vegetations IV vancomycin (3) Infection of right knee Current Visit: Yes Status: Acute (4) UTI (urinary tract infection) Current Visit: Yes Status: Acute Qualifiers: Urinary tract infection type: acute cystitis Hematuria presence: without hematuria Qualified Code(s): N30.00 - Acute cystitis without hematuria (5) Hypokalemia Current Visit: No Status: Resolved Assessment and plan: having episodes of asymptomatic VT runs replete as needed Also hypomagnesemia Mg was 0.9, replete (6) Anemia Current Visit: Yes Status: Chronic Assessment and plan: acute blood loss anemia post surgery, constant small right knee surgical wound hemorrhage transfused with 1 unit of RBCs awaiting Orthopedic sx recommendations Qualifiers: Anemia type: unspecified type Qualified Code(s): D64.9 - Anemia, unspecified (7) Status post total right knee replacement Current Visit: Yes Status: Chronic Assessment and plan: Right knee contusion, history of right knee replaced on 10/13/[address] Luong Followed by orthopedic surgery (8) Morbid obesity with BMI of 40.0-44.9, adult Current Visit: No Status: Chronic (9) Multiple sclerosis Current Visit: No Status: Chronic - Subjective Interval history: RIght knee wound keeps oozing blood. Complains of less right leg pain/knee pain, dysuria, weakness, no chest pain or shortness of breath, had a fever of 101.4 on 10/30/17 - Constitutional Vitals: Temp Pulse Resp BP Pulse Ox 98.9 F 102 18 134/86 96 11/01/17 07:09 11/01/17 07:09 11/01/17 08:19 11/01/17 07:09 11/01/17 08:19 General appearance: Present: cooperative, mild distress, A&O X 3, morbidly obese , pleasant, answers questions appropriately Exam: - Head Head exam: Present: atraumatic, normocephalic - Eye Eye exam: Present: PERRL, conjuntiva pink, sclera anicteric Pupils: Present: PERRL - Neck Neck exam general surgery: Present: supple, trachea midline. Absent: lymphadenopathy - Respiratory Respiratory exam: Present: CTAB, rhonchi (Diffuse rhonchi). Absent: accessory muscle use, rales, wheezes - Cardiovascular Cardiovascular exam: Present: RRR, +S1, +S2. Absent: diastolic murmur, gallop, rubs, systolic murmur - GI/Abdominal GI/Abdominal exam: Present: normal bowel sounds, soft, no peritoneal signs. Absent: distended, tenderness - Extremities Exam Extremities exam: Present: warm, radial pulses palpable and symmetrical. Absent : calf tenderness, cyanotic, pedal edema - Neurological Exam Neurological exam: Present: CN II-XII intact, oriented X3, no focal deficits. Absent: pronater drift, facial droop, speech deficit - Skin Skin exam: Present: dry. Absent: intact Additional comments: Right knee anterior surgical wound surrounded by erythema draining bloody fluid , very edematous Internal Medicine: Result - Labs CBC & Chem 7: 11/01/17 05:19 11/01/17 05:19 Labs: Short CBC 10/31/17 11/01/17 Range/Units 20:35 05:19 WBC 4.0 L (4.3-11.1) K/mcL Hgb 8.9 L 8.5 L (11.5-15.4) g/dL Hct 28.5 L 26.2 L (35.3-44.9) % Plt Count 153 (140-400) K/mcL BMP 11/01/17 05:19 Sodium 139 Potassium 3.2 L Chloride 108 H Carbon Dioxide 23 BUN 6 Creatinine 0.78 Glucose 95 Calcium 7.1 L Consult Discharge Plan - Plan Referrals: Johnie Farley MD [Primary Care Provider] -
--- NOTE | 2017-11-01 14:00 | Event Note ---
Date of Encounter: 11/01/17 Time of Encounter: 13:40 Patient seen at bedside. Patient with macerated incision with erythema to mid incision. Neymar intact. No drainage able to be expressed. TROM brace loose and slid down to ankle. No calf tenderness. Minimal ecchymosis. Neurovascualrly intact. Incision cleaned with betadine. 10-4x4 gauze applied to incision. 2 ABD applied overtop. Medipore tape applied in pressure fashion. BOSSMAN applied. TROM repositioned and fitted appropriately. Patient's boyfriend entered room and stated he did not understand how she could have an infection when she has been in the hospital. Discussed her history since first seen with dislocation that she was to be wearing the brace and changing dressing frequently. They deny frequent visits by Home health. Per patient she has been accepted to [facility] for rehab and care. Discussed with Dr. Luong who would like to have patient I&D with jamie gomez tomorrow. Working to get patient arranged.
[2017-11-01] MEDS: Magnesium Oxide 400 MG TABLET PO SCH ×2 (14:06→20:26)
--- NOTE | 2017-11-01 14:14 | Infectious Disease Progress No ---
Date of Encounter: 11/01/17 Time of Encounter: 11:30 - Assessment and Plan (1) Sepsis Current Visit: Yes Status: Suspected The patient had two SIRS criteria on admission. Likely secondary to bacteremia and right knee infection. Improved. Afebrile x 24 hours. Continues to have intermittent tachycardia. Blood cultures drawn 10/29/17 are positive 2/2 sets for MRSA. Repeat blood cultures drawn 10/30/17 are NGTD 2/2 sets. Qualifiers: Sepsis type: sepsis due to unspecified organism Qualified Code(s): A41.9 - Sepsis, unspecified organism (2) Bacteremia Current Visit: Yes Status: Acute Causative organism: MRSA. 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 Complicated due to presence of right knee hardware. Blood cultures drawn 10/29/17 are positive 2/2 sets for MRSA. Repeat blood cultures drawn 10/30/17 are NGTD x 2 sets. X-ray of the right knee showed persistent anterior skin swelling and a small suprapatellar joint effusion. ESR 86, CRP 288, but elevation could be secondary to recent surgery. No endocarditis stigmata noted on exam. She has one major and one minor Modified De La Cruz's Criteria. TTE was negative. Will need EVER prior to discharge. Continue Vancomycin IV. Pharmacy to dose. Goal trough ~15. Vanc trough 20. Duration of treatment depends on the clinical picture, but likely 6 weeks due to the complicated nature of the infection and the PJI. Monitor renal function and for drug toxicity and dose-adjust antibiotics. Continue contact precautions per protocol. (3) Prosthetic joint infection Current Visit: Yes Status: Acute Location: Right knee. Causative organism: MRSA Likely secondary to recent surgical procedure. Acute onset. Status post bedside aspiration 10/31/17 that yielded 2ml of bloody fluid that is culture positive for MRSA. Ortho consulted. Await further recommendations from them. Continue antibiotics as above. Wound care and activity restrictions per the ortho team. Consult neonatal social worker to assist with discharge planning. Will need 6 weeks of IV antibiotics. Consult VAT for PICC line placement prior to discharge. Qualifiers: Encounter type: initial encounter Qualified Code(s): T84.50XA - Infection and inflammatory reaction due to unspecified internal joint prosthesis, initial encounter (4) UTI (urinary tract infection) Current Visit: Yes Status: Acute Causative organism: E. coli. Symptoms have resolved. Discontinue Rocephin. Start nitrofurantoin 100mg PO BID to complete a 5 day course. Treat through 11/02, then discontinue. Qualifiers: Urinary tract infection type: acute cystitis Hematuria presence: without hematuria Qualified Code(s): N30.00 - Acute cystitis without hematuria (5) Anemia Current Visit: Yes Status: Chronic Etiology unclear. Hgb up to 8.5 this morning. FOBT negative. Further evaluation and treatment per the primary team. Qualifiers: Anemia type: unspecified type Qualified Code(s): D64.9 - Anemia, unspecified (6) Status post total right knee replacement Current Visit: Yes Status: Chronic Status post right total knee replacement 10/13/[address] Luong. (7) Morbid obesity with BMI of 40.0-44.9, adult Current Visit: No Status: Chronic (8) Multiple sclerosis Current Visit: No Status: Chronic - Subjective Interval history: Patient seen and examined. No acute events noted overnight. Patient sitting up in the chair this morning. States overall she feels better today. Denies fevers , chills, or rigors. Denies chest pain, shortness of breath, or cough. Denies nausea, vomiting. States her appetite is better and she is hungry this morning. Denies abdominal pain or urinary complaints. Reports persistent pain in the right knee and states it continues to drain a lot. Denies oral thrush or skin lesions. Infect Dis PN-Objective Data - Labs CBC & Chem 7: 11/01/17 05:19 11/01/17 05:19 Labs: Laboratory Results - last 24 hr 10/31/17 10/31/17 11/01/17 20:35 23:13 05:19 WBC 4.0 L RBC 2.94 L Hgb 8.9 L 8.5 L Hct 28.5 L 26.2 L MCV 89.1 MCH 28.9 MCHC 32.4 RDW 16.0 H Plt Count 153 MPV 11.1 Sodium Potassium Chloride Carbon Dioxide BUN Creatinine Est GFR ( Amer) Est GFR (Non-Af Amer) BUN/Creatinine Ratio Glucose Calculated Osmolality Calcium Magnesium Vancomycin Trough 20.0 11/01/17 11/01/17 05:19 10:24 WBC RBC Hgb Hct MCV MCH MCHC RDW Plt Count MPV Sodium 139 Potassium 3.2 L Chloride 108 H Carbon Dioxide 23 BUN 6 Creatinine 0.78 Est GFR ( Amer) > 60 Est GFR (Non-Af Amer) > 60 BUN/Creatinine Ratio 8 Glucose 95 Calculated Osmolality 285 Calcium 7.1 L Magnesium 0.9 L Vancomycin Trough Cultures: Cultures 10/31/17 16:58 Body Fluid Culture - Final Synovial Fluid Methicillin Resistant S.aureus 10/30/17 20:38 Blood Culture - Preliminary Peripheral Venipuncture No growth. 10/30/17 20:38 Blood Culture - Preliminary Peripheral Venipuncture No growth. 10/31/17 16:58 Gram Stain - Final Right Knee Exam - Constitutional Vitals: Temp Pulse Resp BP Pulse Ox 98.5 F 98 16 126/87 95 11/01/17 10:23 11/01/17 10:23 11/01/17 10:23 11/01/17 10:23 11/01/17 10:23 General appearance: cooperative, no acute distress, obese - Head Head exam: Present: atraumatic, normal inspection, normocephalic - Eye Eye exam: Present: EOMI, normal appearance, PERRL Pupils: Present: normal accommodation Additional comments: No subconjunctival hemorrhage noted. - ENT ENT exam: Present: mucous membranes moist - Neck Neck exam: Present: normal inspection - Respiratory Respiratory exam: Present: CTAB. Absent: rales, respiratory distress, rhonchi, wheezes - Cardiovascular Cardiovascular exam: Present: RRR, +S1, +S2 - GI/Abdominal GI/Abdominal exam: Present: distended (obese), normal bowel sounds, soft. Absent: tenderness - Extremities Exam Extremities exam: Present: joint swelling (right knee), tenderness (right knee) . Absent: pedal edema Additional comments: Dressing to the right knee with moderate amount of serosanguinous drainage noted on the BOSSMAN bandage. ROM not assessed. No endocarditis stigmata noted. - Neurological Exam Neurological exam: Present: alert, oriented X3, no focal deficits - Psychiatric Psychiatric exam: Present: normal affect, normal mood - Skin Skin exam: Present: dry, intact, normal color, warm Consult Discharge Plan - Plan Referrals: Johnie Farley MD [Primary Care Provider] - - Attending Attestation I examined this patient and my medical decision-making was reviewed with the Resident Physician. I agree with the documented findings, disposition and treatment plan as described except to the extent set forth below.
[2017-11-01] MEDS: Nitrofurantoin (BID) 100 MG CAPSULE PO SCH (15:46)
--- NOTE | 2017-11-01 19:49 | Anesthesia Evaluation PreOp ---
Date of Encounter: 11/01/17 Time of Encounter: 19:47 - Past History Planned Operation: R knee I and D polyexchange Cardiac History: HTN, Hyperlipidemia Pulmonary History: Smoker, COPD, IVAN Dx (CPAP) [employer] History: Other (multiple sclerosis, no recent exacerbations, ADHD, depression) Other Medical History: Thyroid (hypo), GERD Anesthesia History: No Prior Anesthetic Complications, Past Anesthesia (R TKR) Alcohol Use: none Drug use: marijuana Medications and Allergies Atorvastatin [Lipitor] 40 mg PO HS 04/10/15 [History] Sertraline [Zoloft] 100 mg PO DAILY 04/10/15 [History] Levothyroxine [Synthroid] 112 mcg PO QAM 09/01/16 [History] Potassium Chloride [Klor-Con 10] 20 meq PO BID 09/01/16 [History] Mirabegron [Myrbetriq] 50 mg PO DAILY 06/29/17 [History] Furosemide [Lasix] 40 mg PO DAILY #30 07/17/17 [Rx] Pantoprazole Sodium [Protonix] 40 mg PO BID #60 tablet. 07/17/17 [Rx] BuPROPion SR (12 HR) [Wellbutrin SR] 150 mg PO BID 07/26/17 [History] Oxybutynin [Ditropan] 5 mg PO DAILY #30 tablet 08/16/17 [Rx] Amitriptyline [Elavil] 25 mg PO HS 09/19/17 [History] Buspirone HCl [Buspar] 10 mg PO BID 09/19/17 [History] Famotidine [Heartburn Prevention] 20 mg PO DAILY 09/19/17 [History] Fluticasone Propionate [Flovent Hfa] 1 puff IH BID 09/19/17 [History] Nystatin POWDER [Nystop] 1 appl TP BID 09/19/17 [History] Quetiapine Fumarate [Seroquel] 75 mg PO HS 09/19/17 [History] Diphenoxylate/Atropine [Lomotil 2.5 mg/0.025 mg] 1 tab PO QID PRN 09/23/17 [ History] Melatonin/Pyridoxine HCl (B6) [Melatonin 5 mg Tablet] 5 mg PO HS PRN 09/23/17 [ History] Beclomethasone Diprop 80mcg [QVAR 80 mcg] 1 puff IH BIDR puff 10/09/17 [Rx] Aspirin Enteric Coated [Aspirin EC] 325 mg PO BID #20 tablet. 10/13/17 [Rx] Ibuprofen [Motrin] 600 mg PO BID PRN 10/29/17 [History] 3 Allergy/AdvReac Type Severity Reaction Status Date / Time No Known Allergies Allergy Verified 10/29/17 17:11 - Meds/Allergy Pre-op Review Medications Reviewed: Yes Allergies Reviewed: Yes Beta Blockers on Current Med List: No Anesthesia Results - Labs 11/01/17 05:19 11/01/17 05:19 - Imaging EKG: report reviewed (SR, RBSHARRI 10/13/17) Chest x-ray: report reviewed (FINDINGS: The lungs are without acute focal process. There is no effusion or pneumothorax. The cardiomediastinal silhouette is without acute process. The osseous structures are without acute process. XR/XR chest 1V portable IMPRESSION: No acute process. D/ / Javi Griffin MD / Javi Griffin MD) Anesthesia Exam Vital Signs/O2 Sat, Most Current Temp Pulse Resp BP Pulse Ox 98.3 F 87 16 129/83 95 11/01/17 14:19 11/01/17 14:19 11/01/17 14:19 11/01/17 14:19 11/01/17 14:19 Height: 1.55m Weight: 106kg - HEENT Pupil (Motor): Pupils equal, EOMI Mallampati: II Teeth: Poor dentition Oral Opening: Greater than 3 - [employer] LOC: Oriented [employer] Motor: Normal RUE, Normal LUE, Normal RLE, Normal LLE, Normal Face [employer] Sensory: Normal: RUE, LUE, RLE, LLE, Face - Cardiac Rhythm: Regular - Pulmonary Breath Sounds: bilateral Clear Respiratory Effort: Symmetrical Anesthesia Assess/Plan ASA Score: 3 Modified Ishmael Scale for Level of Consciousness: Cooperative, oriented, and tranquil Anesthetic Plan: General Monitoring Plan: Standard Monitors Recovery Plan: PACU
[2017-11-01] MEDS: Melatonin 3 MG TABLET PO SCH (22:52)
[2017-11-02 04:02] LABS: Hematocrit 23.7 % (35.3-44.9); Hemoglobin 7.6 g/dL (11.5-15.4); Mean Corpuscular HGB Conc 32.1 g/dL (31.6-35.5); Mean Corpuscular Hemoglobin 28.8 pg (28.0-33.3); Mean Corpuscular Volume 89.8 fL (83.0-100.0); Mean Platelet Volume 10.6 fL (9.4-12.4); Platelet Count 137 K/mcL (140-400); Red Blood Count 2.64 M/mcL (3.82-4.97)
[2017-11-02 04:04] LABS: BUN/Creatinine Ratio 7 (6-26); Blood Urea Nitrogen 5 mg/dL (6-20); Calcium 7.2 mg/dL (8.6-10.3); Carbon Dioxide 24 mEq/L (23-29); Chloride 110 mEq/L (98-107); Glucose 104 mg/dL (70-105); Osmolality,Calculated 286 (280-300); Potassium 3.9 mEq/L (3.5-5.1); Sodium 139 mEq/L (136-145); eGFR For African Americans > 60 (> 60); eGFR For Non-African Americans > 60 (> 60)
--- NOTE | 2017-11-02 06:04 | Orthopedics Progress Note ---
Date of Encounter: 11/02/17 Time of Encounter: 06:04 Subjective Interval history: Patient seen this morning incision clean dry and intact no active drainage. Cultures are positive patient for washout today and operating room with Emely exchange Objective Vital signs: Vital Signs Temp Pulse Resp BP Pulse Ox 11/01/17 22:33 97.7 F 82 15 127/71 94 11/01/17 20:53 20 98 11/01/17 19:59 97.7 F 86 17 134/76 96 11/01/17 14:19 98.3 F 87 16 129/83 95 11/01/17 10:23 98.5 F 98 16 126/87 95 11/01/17 08:19 18 96 11/01/17 07:09 98.9 F 102 18 134/86 96 Intake and Output 11/01/17 11/01/17 11/02/17 15:59 23:59 07:59 Intake Total 600 / 600 250 / 250 Output Total 500 / 500 Balance 100 / 100 250 / 250 Intake: IV Fluids 250 / 250 Vancocin 1,250 MG In 0.9 % 250 / 250 Sodium Chloride 250 ML @ 167 mls/hr IVPB Q12H [facility] Rx#: [id number] Oral 600 / 600 Output: Urine 500 / 500 Other: Meal Lunch Percent of Meal Consumed 75% - Labs CBC & BMP: 11/02/17 03:25 11/02/17 03:25 Labs: Abnormal lab results WBC 4.2 K/mcL (4.3-11.1) L 11/02/17 03:25 RBC 2.64 M/mcL (3.82-4.97) L 11/02/17 03:25 Hgb 7.6 g/dL (11.5-15.4) L 11/02/17 03:25 Hct 23.7 % (35.3-44.9) L 11/02/17 03:25 RDW 16.0 % (11.5-14.5) H 11/02/17 03:25 Plt Count 137 K/mcL (140-400) L 11/02/17 03:25 ESR 86 mm/hr (0-15) H 10/29/17 17:16 Chloride 110 mEq/L (98-107) H 11/02/17 03:25 BUN 5 mg/dL (6-20) L 11/02/17 03:25 Calcium 7.2 mg/dL (8.6-10.3) L 11/02/17 03:25 Magnesium 0.9 mg/dL (1.6-2.6) L 11/01/17 10:24 Iron < 10 mcg/dL (50-170) L 10/30/17 01:17 Transferrin 169 mg/dL (203-362) L 10/30/17 01:17 Ferritin 647 ng/ml (10-120) H 10/30/17 01:17 AST 11 Units/L (13-39) L 10/29/17 17:16 Alkaline Phosphatase 125 Units/L (34-104) H 10/29/17 17:16 C-Reactive Protein 288 mg/L (Less than 10) H 10/29/17 17:16 Serum Total Protein 6.1 g/dL (6.4-8.9) L 10/29/17 17:16 Vitamin B12 166 pg/mL (250-1100) L 10/30/17 01:17 Urine Clarity Cloudy (Clear) A 10/29/17 17:00 Ur Specific [place] 1.009 (1.010-1.025) L 10/29/17 17:00 Urine Nitrite Positive (Negative) A 10/29/17 17:00 Ur Leukocyte Esterase Large (Negative) H 10/29/17 17:00 Urine Microscopic WBC 50-100 per hpf (0-3) H 10/29/17 17:00 Ur Squamous Epith Cells Many per lpf (None-Few) H 10/29/17 17:00 Urine Bacteria Many per hpf (None-Few) H 10/29/17 17:00 Staphylococcus sp PCR DETECTED (Not Detect) A 10/29/17 17:16 Staph aureus (PCR) DETECTED (Not Detect) A 10/29/17 17:16 mecA-Methicil Res Gene DETECTED (Not Detect) A 10/29/17 17:16 Antibody Screen POSITIVE A 10/30/17 03:18 Consult Discharge Plan - Plan Referrals: Johnie Farley MD [Primary Care Provider] -
[2017-11-02] MEDS: *HR* Enoxaparin 30 MG/0.3 ML SYRINGE SQ SCH (06:32)
[2017-11-02] MEDS: Famotidine 20 MG TABLET PO SCH (08:54)
[2017-11-02] MEDS: Nitrofurantoin (BID) 100 MG CAPSULE PO SCH ×2 (08:54→19:07)
[2017-11-02] MEDS: Furosemide 20 MG TABLET PO SCH (08:54)
[2017-11-02] MEDS: Gabapentin 300 MG CAPSULE PO SCH ×2 (08:54→20:18)
[2017-11-02] MEDS: Magnesium Oxide 400 MG TABLET PO SCH ×2 (08:54→20:18)
[2017-11-02] MEDS: Diphenoxylate/Atropine 1 TAB TABLET PO PRN (08:54)
[2017-11-02] MEDS: BuPROPion SR (12 HR) 150 MG TABLET PO SCH ×2 (08:54→20:18)
[2017-11-02] MEDS: (Fluticasone Propionate [Flovent Hfa] 1 PUFF) IH SCH (08:55)
[2017-11-02] MEDS: Nystatin POWDER 30 GM BOTTLE TP SCH ×2 (08:55→20:20)
[2017-11-02] MEDS: (Mirabegron [Myrbetriq] 50 MG) PO SCH (08:55)
[2017-11-02] MEDS ORDERED: Ipratropium/Albuterol Neb 3 ML IH ONE (08:57)
--- NOTE | 2017-11-02 10:48 | Internal Med Progress Note ---
<Martina Valenciad - Last Filed: 11/02/17 11:00> Date of Encounter: 11/02/17 Time of Encounter: 10:48 - Assessment and plan (1) Infection of right knee Current Visit: Yes Status: Acute Assessment and plan: MRSA grown from synovial fluid. Patient planned for knee washout in the operating room today. Being held nothing by mouth at this time. On vancomycin for antimicrobial coverage currently. (2) Sepsis Current Visit: Yes Status: Suspected Qualifiers: Sepsis type: sepsis due to unspecified organism Qualified Code(s): A41.9 - Sepsis, unspecified organism (3) Anemia Current Visit: Yes Status: Chronic Assessment and plan: Patient's hemoglobin has dropped to 7.6 from 8.5. We will transfuse a unit of blood. Continue to monitor hemoglobin as patient is going to the operating room today. Qualifiers: Anemia type: unspecified type Qualified Code(s): D64.9 - Anemia, unspecified - Subjective Interval history: 57-year-old female states that she is feeling a little worse that she felt yesterday. States she is having diarrhea. Reports bright red blood per rectum. Patient plan for her knee washout today due to growth of MRSA from synovial fluid. - Constitutional Vitals: Temp Pulse Resp BP Pulse Ox 97.9 F 86 18 124/78 96 11/02/17 06:51 11/02/17 06:51 11/02/17 06:51 11/02/17 06:51 11/02/17 06:51 General appearance: Present: cooperative, mild distress, A&O X 3, morbidly obese , pleasant, answers questions appropriately - Head Head exam: Present: atraumatic - Neck Neck exam general surgery: Present: supple, trachea midline - Respiratory Respiratory exam: Present: rhonchi, wheezes - Cardiovascular Cardiovascular exam: Present: RRR, +S1, +S2. Absent: JVD - GI/Abdominal GI/Abdominal exam: Absent: distended, firm, guarding, rebound - Neurological Exam Neurological exam: Present: oriented X3 Internal Medicine: Result - Labs CBC & Chem 7: 11/02/17 03:25 11/02/17 03:25 Labs: Short CBC 11/02/17 Range/Units 03:25 WBC 4.2 L (4.3-11.1) K/mcL Hgb 7.6 L (11.5-15.4) g/dL Hct 23.7 L (35.3-44.9) % Plt Count 137 L (140-400) K/mcL BMP 11/02/17 03:25 Sodium 139 Potassium 3.9 Chloride 110 H Carbon Dioxide 24 BUN 5 L Creatinine 0.72 Glucose 104 Calcium 7.2 L Consult Discharge Plan - Plan Referrals: Johnie Farley MD [Primary Care Provider] - <Alen Camacho H - Last Filed: 11/02/17 13:27> Date of Encounter: 11/02/17 - Assessment and plan (1) Sepsis Current Visit: Yes Status: Suspected Qualifiers: Sepsis type: sepsis due to unspecified organism Qualified Code(s): A41.9 - Sepsis, unspecified organism (2) Bacteremia Current Visit: Yes Status: Acute (3) Infection of right knee Current Visit: Yes Status: Acute (4) UTI (urinary tract infection) Current Visit: Yes Status: Acute Qualifiers: Urinary tract infection type: acute cystitis Hematuria presence: without hematuria Qualified Code(s): N30.00 - Acute cystitis without hematuria (5) Hypokalemia Current Visit: No Status: Resolved (6) Anemia Current Visit: Yes Status: Chronic Qualifiers: Anemia type: unspecified type Qualified Code(s): D64.9 - Anemia, unspecified (7) Status post total right knee replacement Current Visit: Yes Status: Chronic (8) Morbid obesity with BMI of 40.0-44.9, adult Current Visit: No Status: Chronic (9) Multiple sclerosis Current Visit: No Status: Chronic - Constitutional Vitals: Temp Pulse Resp BP Pulse Ox 98.7 F 84 14 130/84 97 11/02/17 10:51 11/02/17 10:51 11/02/17 11:13 11/02/17 10:51 11/02/17 11:13 Internal Medicine: Result - Labs CBC & Chem 7: 11/02/17 03:25 11/02/17 03:25 Labs: Short CBC 11/02/17 Range/Units 03:25 WBC 4.2 L (4.3-11.1) K/mcL Hgb 7.6 L (11.5-15.4) g/dL Hct 23.7 L (35.3-44.9) % Plt Count 137 L (140-400) K/mcL BMP 11/02/17 03:25 Sodium 139 Potassium 3.9 Chloride 110 H Carbon Dioxide 24 BUN 5 L Creatinine 0.72 Glucose 104 Calcium 7.2 L - Attending Attestation (1) Sepsis Current Visit: Yes Status: Suspected Assessment and plan: Sepsis secondary to MRSA bacteremia and MRSA right knee infection , E coli UTI Had a fever of 101.4 upon admission and heart rate of 108, blood pressure dropped to the 80s IV fluids, sent urine culture was not done upon admission, growing E coli urine culture from last month showed MRSA Stopped Rocephin at day #4, received Zosyn and vancomycin at the ER Continue Vancomycin IV day 4 ID consulted, recommending 4-6 weeks of vanc Right knee fluid culture, growing MRSA OR today Qualifiers: Sepsis type: sepsis due to unspecified organism Qualified Code(s): A41.9 - Sepsis, unspecified organism (2) Bacteremia Current Visit: Yes Status: Acute Assessment and plan: possible MRSA bacteremia, ECHO did not show vegetations IV vancomycin (3) Infection of right knee Current Visit: Yes Status: Acute (4) UTI (urinary tract infection) Current Visit: Yes Status: Acute Qualifiers: Urinary tract infection type: acute cystitis Hematuria presence: without hematuria Qualified Code(s): N30.00 - Acute cystitis without hematuria (5) Hypokalemia Current Visit: No Status: Resolved Assessment and plan: having episodes of asymptomatic VT runs replete as needed Also hypomagnesemia Mg was 0.9, replete (6) Anemia Current Visit: Yes Status: Chronic Assessment and plan: acute blood loss anemia post surgery, constant small right knee surgical wound hemorrhage transfused with 1 unit of RBCs, transfuse another unit today Qualifiers: Anemia type: unspecified type Qualified Code(s): D64.9 - Anemia, unspecified (7) Status post total right knee replacement Current Visit: Yes Status: Chronic Assessment and plan: Right knee contusion, history of right knee replaced on 10/13/[address] Luong Followed by orthopedic surgery (8) Morbid obesity with BMI of 40.0-44.9, adult Current Visit: No Status: Chronic (9) Multiple sclerosis Current Visit: No Status: Chronic
[2017-11-02] MEDS: Beclomethasone 80mcg MDI IH SCH ×2 (11:12→20:21)
--- NOTE | 2017-11-02 13:05 | Infectious Disease Progress No ---
Date of Encounter: 11/02/17 Time of Encounter: 13:03 - Assessment and Plan (1) Sepsis Current Visit: Yes Status: Suspected The patient had two SIRS criteria on admission. Likely secondary to bacteremia and right knee infection. Improved. Afebrile. Tachycardia has resolved. Blood cultures drawn 10/29/17 are positive 2/2 sets for MRSA. Repeat blood cultures drawn 10/30/17 are NGTD 2/2 sets, 10/31/17 are NGTD x 2 sets , and 11/01/17 are NGTD x 1 set. Qualifiers: Sepsis type: sepsis due to unspecified organism Qualified Code(s): A41.9 - Sepsis, unspecified organism (2) Bacteremia Current Visit: Yes Status: Acute Causative organism: MRSA. 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 Complicated due to presence of right knee hardware. Blood cultures drawn 10/29/17 are positive 2/2 sets for MRSA. Repeat blood cultures drawn 10/30/17 are NGTD 2/2 sets, 10/31/17 are NGTD x 2 sets , and 11/01/17 are NGTD x 1 set. X-ray of the right knee showed persistent anterior skin swelling and a small suprapatellar joint effusion. ESR 86, CRP 288, but elevation could be secondary to recent surgery. No endocarditis stigmata noted on exam. She has one major and one minor Modified De La Cruz's Criteria. TTE was negative. Will need EVER prior to discharge. Continue Vancomycin IV. Pharmacy to dose. Goal trough ~15. Vanc trough 20. Duration of treatment depends on the clinical picture, but likely 6 weeks due to the complicated nature of the infection and the PJI. Monitor renal function and for drug toxicity and dose-adjust antibiotics. Continue contact precautions per protocol. Consult VAT for PICC line placement. (3) Prosthetic joint infection Current Visit: Yes Status: Acute Location: Right knee. Causative organism: MRSA Likely secondary to recent surgical procedure. Acute onset. Status post bedside aspiration 10/31/17 that yielded 2ml of bloody fluid that is culture positive for MRSA. Ortho consulted. Planning to take the patient to the OR later today for a washout. Continue antibiotics as above. Wound care and activity restrictions per the ortho team. Consult social service agency director to assist with discharge planning. Will need 6 weeks of IV antibiotics. Consult VAT for PICC line placement. Qualifiers: Encounter type: initial encounter Qualified Code(s): T84.50XA - Infection and inflammatory reaction due to unspecified internal joint prosthesis, initial encounter (4) UTI (urinary tract infection) Current Visit: Yes Status: Acute Causative organism: E. coli. Symptoms have resolved. Continue nitrofurantoin 100mg PO BID to complete a 5 day course. Treat through , then discontinue. Qualifiers: Urinary tract infection type: acute cystitis Hematuria presence: without hematuria Qualified Code(s): N30.00 - Acute cystitis without hematuria (5) Anemia Current Visit: Yes Status: Chronic Etiology unclear. Hgb down to 7.6 this morning. FOBT negative. Further evaluation and treatment per the primary team. Qualifiers: Anemia type: unspecified type Qualified Code(s): D64.9 - Anemia, unspecified (6) Status post total right knee replacement Current Visit: Yes Status: Chronic Status post right total knee replacement 10/13/[address] Luong. (7) Morbid obesity with BMI of 40.0-44.9, adult Current Visit: No Status: Chronic (8) Multiple sclerosis Current Visit: No Status: Chronic - Subjective Interval history: Patient seen and examined. No acute events noted overnight. Patient lying in bed , yelling out because she can't reach her call light. Appears agitated and states she knows she has to have the surgery today, but she doesn't really want to. Advised her of the risks/benefits and advised her to request to speak with ortho if more questions. States overall her knee feels about the same. Denies fevers, chills, or rigors. Denies chest pain, shortness of breath, or cough. Denies vomiting. Reports some nausea this morning. States her appetite is better and she is hungry this morning. Denies abdominal pain or urinary complaints. States she had one episode of diarrhea yesterday and three so far today. Reports persistent pain in the right knee and states it continues to drain a lot. Denies oral thrush or skin lesions. Infect Dis PN-Objective Data - Labs CBC & Chem 7: 11/02/17 03:25 11/02/17 03:25 Labs: Laboratory Results - last 24 hr 11/02/17 11/02/17 11/02/17 03:25 03:25 11:30 WBC 4.2 L RBC 2.64 L Hgb 7.6 L Hct 23.7 L MCV 89.8 MCH 28.8 MCHC 32.1 RDW 16.0 H Plt Count 137 L MPV 10.6 Sodium 139 Potassium 3.9 Chloride 110 H Carbon Dioxide 24 BUN 5 L Creatinine 0.72 Est GFR ( Amer) > 60 Est GFR (Non-Af Amer) > 60 BUN/Creatinine Ratio 7 Glucose 104 Calculated Osmolality 286 Calcium 7.2 L Vancomycin Trough 19.4 Cultures: Cultures 11/01/17 05:19 Blood Culture - Preliminary Peripheral Venipuncture No growth. 10/31/17 20:31 Blood Culture - Preliminary Peripheral Venipuncture No growth. 10/31/17 20:35 Blood Culture - Preliminary Peripheral Venipuncture No growth. 10/31/17 16:58 Body Fluid Culture - Final Synovial Fluid Methicillin Resistant S.aureus 10/30/17 20:38 Blood Culture - Preliminary Peripheral Venipuncture No growth. 10/30/17 20:38 Blood Culture - Preliminary Peripheral Venipuncture No growth. 10/31/17 16:58 Gram Stain - Final Right Knee Exam - Constitutional Vitals: Temp Pulse Resp BP Pulse Ox 98.7 F 84 14 130/84 97 11/02/17 10:51 11/02/17 10:51 11/02/17 11:13 11/02/17 10:51 11/02/17 11:13 General appearance: cooperative, no acute distress, obese - Head Head exam: Present: atraumatic, normal inspection, normocephalic - Eye Eye exam: Present: EOMI, normal appearance, PERRL Pupils: Present: normal accommodation Additional comments: No subconjunctival hemorrhage noted. - ENT ENT exam: Present: mucous membranes moist - Neck Neck exam: Present: normal inspection - Respiratory Respiratory exam: Present: CTAB. Absent: rales, respiratory distress, rhonchi, wheezes - Cardiovascular Cardiovascular exam: Present: RRR, +S1, +S2 - GI/Abdominal GI/Abdominal exam: Present: distended (obese), normal bowel sounds, soft. Absent: tenderness - Extremities Exam Additional comments: Hinged brace noted to the right knee with BOSSMAN wrap dressing that is soiled. - Neurological Exam Neurological exam: Present: alert, oriented X3, no focal deficits - Psychiatric Psychiatric exam: Present: normal affect, normal mood - Skin Skin exam: Present: dry, intact, normal color, warm Additional comments: No endocarditis stigmata noted. Consult Discharge Plan - Plan Referrals: Johnie Farley MD [Primary Care Provider] - - Attending Attestation I examined this patient and my medical decision-making was reviewed with the Resident Physician. I agree with the documented findings, disposition and treatment plan as described except to the extent set forth below.
[2017-11-02] MEDS ORDERED: Dexamethasone 4 MG/ML VIAL ONE (14:37)
[2017-11-02] MEDS ORDERED: Ondansetron 4 MG/2 ML VIAL ONE (14:37)
[2017-11-02] MEDS ORDERED: *HR* Midazolam HCl 2 MG/2 ML VIAL ONE (14:37)
[2017-11-02] MEDS ORDERED: *HR* FentaNYL (PF) 100 MCG/2 ML VIAL ONE ×3 (14:37→16:33)
[2017-11-02] MEDS ORDERED: Lidocaine -MPF 2% 2 ML VIAL ONE (14:37)
[2017-11-02] MEDS ORDERED: *HR* Propofol 200 MG/20 ML VIAL IVP ONE (14:37)
[2017-11-02] MEDS ORDERED: Ethanol\\Acetic Acid\\Na Ace\\Ben 1,000 ML IRRIG.SOLN IR ONE (14:38)
[2017-11-02] MEDS ORDERED: Lidocaine -MPF 1% 5 ML AMPUL INFILT ONE ×2 (14:57→18:19)
[2017-11-02] MEDS ORDERED: *HR* PHENYLEPHRINE 1,000 MCG/10 ML SYRINGE IVP ONE (15:35)
[2017-11-02] MEDS ORDERED: *HR* Promethazine 25 MG/ML VIAL IVP PRN (15:38)
[2017-11-02] MEDS ORDERED: *HR* Meperidine 25 MG/ML SYRINGE IVP PRN (15:38)
[2017-11-02] MEDS ORDERED: Ondansetron 4 MG/2 ML VIAL IVP ONE (15:38)
[2017-11-02] MEDS ORDERED: *HR* OxyCODONE Immed Rel 5 MG TABLET PO PRN (15:38)
--- NOTE | 2017-11-02 16:23 | Orthopedic Operative Note ---
Date of procedure: 11/02/17 Pre-op diagnosis: infectedright total knee Post-op diagnosis: same Procedure: Procedure: Irrigation debridement poly-exchange right total knee Estimated blood loss: 300 mL Findings: Disruption of extensor mechanism secondary to trauma patient had multiple falls since surgery patient with a history of MRSA UTI cultures positive for MRSA no gross pus serosanguineous fluid Hardware: 16 SS K constrained Emely Procedure: Patient brought to the operating placed on the operating table after general anesthesia was administered the right lower extremity was prepped and draped in the sterile surgical fashion patient received IV antibiotics prior skin incision. Prior to prepping and draping rebekah were removed patient with minimal drainage. An elliptical incision was made around the previous incision. This is skin and subcutaneous tissue hemostasis was obtained Bovie cautery. Upon entering the knee it was obvious that the extensor mechanism was disrupted. There was no gross pus but definite serosanguineous fluid. This was cultured. An extensive debridement was performed of fibrinous tissue the knee was irrigated with 3 L of pulse irrigation. The knee then sat for 1 minute with Irricept antibacterial solution. The knee is prior to flexion the poly-was removed. The knee was irrigated again and sat for another minute with the Irricept antibacterial solution. The new poly-was placed and secured with a locking bar. The knee was irrigated with 2 L of pulse irrigation the extensor mechanism was closed over a JACKIE drain running #2 PDS suture. Subcutaneous tissue is soaked in the Irricept antibacterial solution for 1 minute. It was then irrigated out pulse irrigation was closed with running #1 PDS suture superficially with 0 PDS suture skin was closed with Monocryl suture and skin rebekah. Patient placed in a sterile dressing. Splint due to inability for the brace to stay on the patient's leg. The patient extubated and transferred to recovery in stable condition. Anesthesia: GETA Surgeon: Cesar Luong Was there an child development assistant present: No Estimated blood loss (cc): 300 Condition: stable Disposition: PACU
[2017-11-02] MEDS: MORPHINE SUL Oral CONC 10 MG/0.5 ML ORAL.SYG SL PRN ×2 (16:36→16:42)
[2017-11-02] MEDS ORDERED: Acetaminophen IV 1,000 MG/100 ML INFUS..BTL IVPB ONE (17:04)
[2017-11-02] MEDS ORDERED: *HR* OxyCODONE Immed Rel 5 MG TABLET PO ONE (17:07)
[2017-11-02] MEDS ORDERED: Ketamine *HR* 500 MG/10 ML MDV ONE (17:34)
[2017-11-02] MEDS ORDERED: Ketorolac 30 MG/ML VIAL ONE (17:48)
[2017-11-02] MEDS ORDERED: Patient Taking Own Medication 1 EACH PO PRN (18:19)
[2017-11-02] MEDS ORDERED: Naloxone 0.4 MG/ML INJ IVP PRN ×2 (18:19)
[2017-11-02] MEDS ORDERED: Temazepam 15 MG CAPSULE PO PRN (18:19)
[2017-11-02] MEDS ORDERED: Sennosides 8.6 MG TABLET PO PRN (18:19)
[2017-11-02] MEDS ORDERED: MOM Conc 10 ML UD.LIQ PO PRN (18:19)
[2017-11-02] MEDS ORDERED: Diphenoxylate/Atropine 1 TAB TABLET PO PRN (18:19)
[2017-11-02] MEDS ORDERED: Ondansetron 4 MG/2 ML VIAL IVP PRN (18:19)
[2017-11-02] MEDS ORDERED: Ringers Solution, Lactated 1,000 ML IVC SCH (18:19)
[2017-11-02] MEDS ORDERED: 0.9 % Sodium Chloride 250 ML ONE (18:53)
[2017-11-02] MEDS: Melatonin 3 MG TABLET PO SCH (20:18)
[2017-11-02] MEDS: FLUTICASONE PROPIONATE IH SCH (20:19)
[2017-11-03] MEDS ORDERED: *HR* Enoxaparin 30 MG/0.3 ML SYRINGE SQ SCH (06:00)
[2017-11-03] MEDS: *HR* OxyCODONE Immed Rel 5 MG TABLET PO PRN ×3 (06:29→22:02)
[2017-11-03 06:43] LABS: Hematocrit 26.8 % (35.3-44.9); Hemoglobin 8.6 g/dL (11.5-15.4)
[2017-11-03 07:03] LABS: BUN/Creatinine Ratio 11 (6-26); Blood Urea Nitrogen 9 mg/dL (6-20); Calcium 7.4 mg/dL (8.6-10.3); Carbon Dioxide 26 mEq/L (23-29); Chloride 106 mEq/L (98-107); Glucose 139 mg/dL (70-105); Osmolality,Calculated 293 (280-300); Potassium 4.4 mEq/L (3.5-5.1); Sodium 141 mEq/L (136-145); eGFR For African Americans > 60 (> 60); eGFR For Non-African Americans > 60 (> 60)
--- NOTE | 2017-11-03 08:19 | Orthopedics Progress Note ---
Date of Encounter: 11/03/17 Time of Encounter: 08:18 Subjective Interval history: Patient was seen this morning doing well without complaints. Afebrile vital signs stable. Operative extremity: Neurovascularly intact Dressing clean dry and intact Calves nontender Assessment and plan: Continue with postoperative care IV antibiotics 6 weeks weightbearing as tolerated with splint do not remove dressing will discontinue drain follow-up 1 week Hemoglobin 8.6 discharged tomorrow Objective Vital signs: Vital Signs Temp Pulse Resp BP Pulse Ox 11/03/17 07:21 97.7 F 71 20 96/62 96 11/03/17 00:25 98.7 F 102 15 121/86 95 11/02/17 21:27 98.3 F 84 18 118/80 94 11/02/17 20:21 18 94 11/02/17 19:10 97.8 F 77 18 156/93 95 11/02/17 19:00 98.1 F 71 17 145/85 97 11/02/17 18:55 98.1 F 71 17 145/85 97 11/02/17 18:32 98.6 F 73 16 150/86 97 11/02/17 18:00 98.6 F 74 16 142/85 95 11/02/17 17:49 98.2 F 86 18 154/95 100 11/02/17 17:39 98.2 F 86 18 135/92 100 11/02/17 17:29 97.6 F 77 22 135/92 100 11/02/17 17:19 99.2 F 76 22 144/83 100 11/02/17 17:09 99.2 F 81 20 152/109 100 11/02/17 16:59 98.5 F 84 20 149/93 100 11/02/17 16:49 98.5 F 84 22 138/103 100 11/02/17 16:39 98.5 F 89 20 134/96 100 11/02/17 11:20 98.4 F 87 16 134/78 98 11/02/17 11:13 14 97 11/02/17 10:51 98.7 F 84 14 130/84 97 Intake and Output 11/02/17 11/03/17 11/03/17 23:59 07:59 15:59 Intake Total 619 / 619 0 / 0 Output Total 470 / 470 250 / 250 Balance 149 / 149 -250 / -250 Intake: IV Fluids 100 / 100 Ofirmev 1,000 mg/100 ml 1,000 100 / 100 mg In 100 ml @ 400 mls/hr IVPB ONCE ONE Rx#:[id number] Oral 240 / 240 0 / 0 Blood Product 279 / 279 Rbcs Leuko Poor As-1 Unit 279 / 279 [id number] Output: Urine 200 / 200 Estimated Blood Loss 400 / 400 Wound Drainage 70 / 70 50 / 50 Right Knee 70 / 70 50 / 50 Other: # Voids 1 - Labs CBC & BMP: 11/03/17 06:29 11/03/17 06:29 Labs: Abnormal lab results WBC 4.2 K/mcL (4.3-11.1) L 11/02/17 03:25 RBC 2.64 M/mcL (3.82-4.97) L 11/02/17 03:25 Hgb 8.6 g/dL (11.5-15.4) L 11/03/17 06:29 Hct 26.8 % (35.3-44.9) L 11/03/17 06:29 RDW 16.0 % (11.5-14.5) H 11/02/17 03:25 Plt Count 137 K/mcL (140-400) L 11/02/17 03:25 ESR 86 mm/hr (0-15) H 10/29/17 17:16 Glucose 139 mg/dL (70-105) H 11/03/17 06:29 Calcium 7.4 mg/dL (8.6-10.3) L 11/03/17 06:29 Magnesium 0.9 mg/dL (1.6-2.6) L 11/01/17 10:24 Iron < 10 mcg/dL (50-170) L 10/30/17 01:17 Transferrin 169 mg/dL (203-362) L 10/30/17 01:17 Ferritin 647 ng/ml (10-120) H 10/30/17 01:17 AST 11 Units/L (13-39) L 10/29/17 17:16 Alkaline Phosphatase 125 Units/L (34-104) H 10/29/17 17:16 C-Reactive Protein 288 mg/L (Less than 10) H 10/29/17 17:16 Serum Total Protein 6.1 g/dL (6.4-8.9) L 10/29/17 17:16 Vitamin B12 166 pg/mL (250-1100) L 10/30/17 01:17 Urine Clarity Cloudy (Clear) A 10/29/17 17:00 Ur Specific Stow 1.009 (1.010-1.025) L 10/29/17 17:00 Urine Nitrite Positive (Negative) A 10/29/17 17:00 Ur Leukocyte Esterase Large (Negative) H 10/29/17 17:00 Urine Microscopic WBC 50-100 per hpf (0-3) H 10/29/17 17:00 Ur Squamous Epith Cells Many per lpf (None-Few) H 10/29/17 17:00 Urine Bacteria Many per hpf (None-Few) H 10/29/17 17:00 Staphylococcus sp PCR DETECTED (Not Detect) A 10/29/17 17:16 Staph aureus (PCR) DETECTED (Not Detect) A 10/29/17 17:16 mecA-Methicil Res Gene DETECTED (Not Detect) A 10/29/17 17:16 Antibody Screen POSITIVE A 10/30/17 03:18 - VTE Documentation of Mechanical Device: Venous foot pump, device Consult Discharge Plan - Plan Referrals: Johnie Farley MD [Primary Care Provider] -
[2017-11-03] MEDS: Beclomethasone 80mcg MDI IH SCH ×2 (08:23→20:51)
[2017-11-03] MEDS: Furosemide 20 MG TABLET PO SCH (08:26)
[2017-11-03] MEDS: Famotidine 20 MG TABLET PO SCH (08:26)
[2017-11-03] MEDS: Gabapentin 300 MG CAPSULE PO SCH ×3 (08:26→22:00)
[2017-11-03] MEDS: BuPROPion SR (12 HR) 150 MG TABLET PO SCH ×2 (08:27→22:00)
[2017-11-03] MEDS: Magnesium Oxide 400 MG TABLET PO SCH ×2 (08:27→22:01)
[2017-11-03] MEDS: Nystatin POWDER 30 GM BOTTLE TP SCH ×2 (08:28→22:01)
[2017-11-03] MEDS: Mirabegron [Myrbetriq] 50 MG PO SCH (08:28)
--- NOTE | 2017-11-03 10:16 | Internal Med Progress Note ---
<Aamir Valencia - Last Filed: 11/03/17 13:24> Date of Encounter: 11/03/17 Time of Encounter: 10:16 - Assessment and plan (1) Prosthetic joint infection Current Visit: Yes Status: Acute Assessment and plan: On IV vancomycin day 5. Patient had a washout of the joint yesterday. Orthopedic surgery plans to discharge tomorrow. Infectious disease recommends 4 -6 weeks of IV vancomycin. Patient will need facility for intravenous antimicrobial therapy. Case management is currently on the case. Patient has been denied at multiple places. Currently, [facility] in [place] will accept patient pending insurance authorization. Patient may be able to go there on Monday. Qualifiers: Encounter type: initial encounter Qualified Code(s): T84.50XA - Infection and inflammatory reaction due to unspecified internal joint prosthesis, initial encounter (2) Bacteremia Current Visit: Yes Status: Acute Assessment and plan: Positive blood cultures for MRSA on 10/29/2016. Last 2 blood cultures obtained on October 31, 2016 have not had any growth after treatment with vancomycin. (3) Sepsis Current Visit: Yes Status: Suspected Assessment and plan: Patient is on IV vancomycin. Currently afebrile and no longer tachycardic. Qualifiers: Sepsis type: sepsis due to unspecified organism Qualified Code(s): A41.9 - Sepsis, unspecified organism (4) Anemia Current Visit: Yes Status: Chronic Assessment and plan: Patient's hemoglobin has improved appropriately after 1 unit of pack red blood cells was administered. Current hemoglobin is 8.6. Qualifiers: Anemia type: unspecified type Qualified Code(s): D64.9 - Anemia, unspecified (5) Multiple sclerosis Current Visit: No Status: Chronic (6) Status post total right knee replacement Current Visit: Yes Status: Chronic (7) Morbid obesity with BMI of 40.0-44.9, adult Current Visit: No Status: Chronic - Subjective Interval history: 57-year-old female who had washing out of the right knee performed yesterday. States that her diarrhea has resolved. Has not noticed any more bright red blood per rectum. Patient denies having any fevers. No other issues overnight. - Constitutional Vitals: Temp Pulse Resp BP Pulse Ox 97.7 F 71 20 96/62 96 11/03/17 07:21 11/03/17 07:21 11/03/17 07:21 11/03/17 07:21 11/03/17 07:21 General appearance: Present: cooperative, mild distress, A&O X 3, morbidly obese , pleasant, answers questions appropriately - Head Head exam: Present: atraumatic - Respiratory Respiratory exam: Present: rhonchi. Absent: respiratory distress - Cardiovascular Cardiovascular exam: Present: +S1, +S2 - GI/Abdominal GI/Abdominal exam: Present: soft. Absent: firm, guarding, rebound - Extremities Exam Extremities exam: Absent: calf tenderness Additional comments: Right knee with Richi bandage Bandage appears clean. - Neurological Exam Neurological exam: Present: CN II-XII intact Internal Medicine: Result - Labs CBC & Chem 7: 11/03/17 06:29 11/03/17 06:29 Labs: Short CBC 11/03/17 Range/Units 06:29 Hgb 8.6 L (11.5-15.4) g/dL Hct 26.8 L (35.3-44.9) % BMP 11/03/17 06:29 Sodium 141 Potassium 4.4 Chloride 106 Carbon Dioxide 26 BUN 9 Creatinine 0.79 Glucose 139 H Calcium 7.4 L - VTE Documentation of Mechanical Device: Venous foot pump, device Consult Discharge Plan - Plan Referrals: Johnie Farley MD [Primary Care Provider] - Anne Hanson CNP [Advanced Practice Nurse] - 11/20/17 9:40 am <Alen Camacho - Last Filed: 11/03/17 13:46> Date of Encounter: 11/03/17 - Assessment and plan (1) Sepsis Current Visit: Yes Status: Suspected Qualifiers: Sepsis type: sepsis due to unspecified organism Qualified Code(s): A41.9 - Sepsis, unspecified organism (2) Bacteremia Current Visit: Yes Status: Acute (3) Infection of right knee Current Visit: Yes Status: Acute (4) UTI (urinary tract infection) Current Visit: Yes Status: Resolved Qualifiers: Urinary tract infection type: acute cystitis Hematuria presence: without hematuria Qualified Code(s): N30.00 - Acute cystitis without hematuria (5) Hypokalemia Current Visit: No Status: Resolved (6) Anemia Current Visit: Yes Status: Chronic Qualifiers: Anemia type: unspecified type Qualified Code(s): D64.9 - Anemia, unspecified (7) Status post total right knee replacement Current Visit: Yes Status: Chronic (8) Morbid obesity with BMI of 40.0-44.9, adult Current Visit: No Status: Chronic (9) Multiple sclerosis Current Visit: No Status: Chronic - Constitutional Vitals: Temp Pulse Resp BP Pulse Ox 97.9 F 80 20 133/82 97 11/03/17 11:34 11/03/17 11:34 11/03/17 11:34 11/03/17 11:34 11/03/17 11:34 Internal Medicine: Result - Labs CBC & Chem 7: 11/03/17 06:29 11/03/17 06:29 Labs: Short CBC 11/03/17 Range/Units 06:29 Hgb 8.6 L (11.5-15.4) g/dL Hct 26.8 L (35.3-44.9) % BMP 11/03/17 06:29 Sodium 141 Potassium 4.4 Chloride 106 Carbon Dioxide 26 BUN 9 Creatinine 0.79 Glucose 139 H Calcium 7.4 L - Attending Attestation (1) Sepsis Current Visit: Yes Status: Suspected Assessment and plan: Sepsis secondary to MRSA bacteremia and MRSA right knee infection , E coli UTI Had a fever of 101.4 upon admission and heart rate of 108, blood pressure dropped to the 80s IV fluids, sent urine culture was not done upon admission, growing E coli urine culture from last month showed MRSA Stopped Rocephin at day #4, received Zosyn and vancomycin at the ER Continue Vancomycin IV day 5 ID consulted, recommending 6 weeks of vanc Right knee fluid culture, growing MRSA right knee drain still having bloody output, may start anticoagulation for DVT prophylaxis once bleeding is controlled Qualifiers: Sepsis type: sepsis due to unspecified organism Qualified Code(s): A41.9 - Sepsis, unspecified organism (2) Bacteremia Current Visit: Yes Status: Acute Assessment and plan: possible MRSA bacteremia, ECHO did not show vegetations IV vancomycin (3) Infection of right knee Current Visit: Yes Status: Acute (4) UTI (urinary tract infection) Current Visit: Yes Status: Acute Qualifiers: Urinary tract infection type: acute cystitis Hematuria presence: without hematuria Qualified Code(s): N30.00 - Acute cystitis without hematuria (5) Hypokalemia Current Visit: No Status: Resolved Assessment and plan: having episodes of asymptomatic VT runs replete as needed Also hypomagnesemia Mg was 0.9, replete (6) Anemia Current Visit: Yes Status: Chronic Assessment and plan: acute blood loss anemia post surgery, constant small right knee surgical wound hemorrhage transfused with 2 units of RBCs Qualifiers: Anemia type: unspecified type Qualified Code(s): D64.9 - Anemia, unspecified (7) Status post total right knee replacement Current Visit: Yes Status: Chronic Assessment and plan: Right knee contusion, history of right knee replaced on 10/13/[address] Luong Followed by orthopedic surgery (8) Morbid obesity with BMI of 40.0-44.9, adult Current Visit: No Status: Chronic (9) Multiple sclerosis Current Visit: No Status: Chronic
--- NOTE | 2017-11-03 11:00 | Infectious Disease Progress No ---
Date of Encounter: 11/03/17 Time of Encounter: 10:58 - Assessment and Plan (1) Sepsis Current Visit: Yes Status: Suspected The patient had two SIRS criteria on admission. Likely secondary to bacteremia and right knee infection. Improved. Afebrile. Tachycardia has resolved. Blood cultures drawn 10/29/17 are positive 2/2 sets for MRSA. Repeat blood cultures drawn 10/30/17 are NGTD 2/2 sets, 10/31/17 are NGTD x 2 sets , and 11/01/17 are NGTD x 1 set. Qualifiers: Sepsis type: sepsis due to unspecified organism Qualified Code(s): A41.9 - Sepsis, unspecified organism (2) Bacteremia Current Visit: Yes Status: Acute Causative organism: MRSA. 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 Complicated due to presence of right knee hardware. Blood cultures drawn 10/29/17 are positive 2/2 sets for MRSA. Repeat blood cultures drawn 10/30/17 are NGTD 2/2 sets, 10/31/17 are NGTD x 2 sets , and 11/01/17 are NGTD x 1 set. X-ray of the right knee showed persistent anterior skin swelling and a small suprapatellar joint effusion. ESR 86, CRP 288, but elevation could be secondary to recent surgery. No endocarditis stigmata noted on exam. She has one major and one minor Modified De La Cruz's Criteria. TTE was negative. Will need EVER prior to discharge. Continue Vancomycin IV. Pharmacy to dose. Goal trough ~15. Vanc trough 20. Duration of treatment depends on the clinical picture, but likely 6 weeks due to the complicated nature of the infection and the PJI. Monitor renal function and for drug toxicity and dose-adjust antibiotics. Continue contact precautions per protocol. (3) Prosthetic joint infection Current Visit: Yes Status: Acute Location: Right knee. Causative organism: MRSA Likely secondary to recent surgical procedure. Acute onset. Status post bedside aspiration 10/31/17 that yielded 2ml of bloody fluid that is culture positive for MRSA. Ortho consulted. Status post I & D of the right knee 11/02/[address] Luong. Operative note reviewed. Serosanguinous drainage noted intra-op. Cultures obtained and are pending. Continue antibiotics as above. Will add rifampin 300mg PO BID at discharge. Check LFTs. Add to AM labs. Wound care and activity restrictions per the ortho team. Consult manager social responsibility to assist with discharge planning. Will need 6 weeks of IV antibiotics. Will need weekly CBC, BUN/Cr, ESR, CRP, LFTs, and Vanc trough. Will need weekly PICC care per protocol. Follow up with ID 11/20/17 at 0940. Qualifiers: Encounter type: initial encounter Qualified Code(s): T84.50XA - Infection and inflammatory reaction due to unspecified internal joint prosthesis, initial encounter (4) UTI (urinary tract infection) Current Visit: Yes Status: Resolved Causative organism: E. coli. Symptoms have resolved. Completed 5 days of treatment. Qualifiers: Urinary tract infection type: acute cystitis Hematuria presence: without hematuria Qualified Code(s): N30.00 - Acute cystitis without hematuria (5) Anemia Current Visit: Yes Status: Chronic Etiology unclear. Hgb improved to 8.6 this morning. FOBT negative. Further evaluation and treatment per the primary team. Qualifiers: Anemia type: unspecified type Qualified Code(s): D64.9 - Anemia, unspecified (6) Status post total right knee replacement Current Visit: Yes Status: Chronic Status post right total knee replacement 10/13/[address] Luong. (7) Morbid obesity with BMI of 40.0-44.9, adult Current Visit: No Status: Chronic (8) Multiple sclerosis Current Visit: No Status: Chronic - Subjective Interval history: Patient seen and examined. No acute events noted overnight. Patient lying in bed. Denies fevers, chills, or rigors. Denies chest pain, shortness of breath, or cough. Denies vomiting. Reports some nausea this morning that improved after she ate breakfast. States her appetite is better and she is hungry this morning. Denies abdominal pain or urinary complaints. States has not had a BM since yesterday. Reports persistent pain in the right knee, but denies drainage. Denies oral thrush or skin lesions. Infect Dis PN-Objective Data - Labs CBC & Chem 7: 11/03/17 06:29 11/03/17 06:29 Labs: Laboratory Results - last 24 hr 11/02/17 11/03/17 11/03/17 11:30 06:29 06:29 Hgb 8.6 L Hct 26.8 L Sodium 141 Potassium 4.4 Chloride 106 Carbon Dioxide 26 BUN 9 Creatinine 0.79 Est GFR ( Amer) > 60 Est GFR (Non-Af Amer) > 60 BUN/Creatinine Ratio 11 Glucose 139 H Calculated Osmolality 293 Calcium 7.4 L Vancomycin Trough 19.4 Cultures: Cultures 10/31/17 16:58 Anaerobic Culture - Preliminary Right Knee At this time, no anaerobic growth is present. The culture will be finalized after 5 days of incubation. 11/01/17 05:19 Blood Culture - Preliminary Peripheral Venipuncture No growth. 10/31/17 20:31 Blood Culture - Preliminary Peripheral Venipuncture No growth. 10/31/17 20:35 Blood Culture - Preliminary Peripheral Venipuncture No growth. 10/31/17 16:58 Body Fluid Culture - Final Synovial Fluid Methicillin Resistant S.aureus 10/30/17 20:38 Blood Culture - Preliminary Peripheral Venipuncture No growth. 10/30/17 20:38 Blood Culture - Preliminary Peripheral Venipuncture No growth. 10/31/17 16:58 Gram Stain - Final Right Knee Exam - Constitutional Vitals: Temp Pulse Resp BP Pulse Ox 97.7 F 71 20 96/62 96 11/03/17 07:21 11/03/17 07:21 11/03/17 07:21 11/03/17 07:21 11/03/17 07:21 General appearance: cooperative, no acute distress, obese - Head Head exam: Present: atraumatic, normal inspection, normocephalic - Eye Eye exam: Present: EOMI, normal appearance, PERRL Pupils: Present: normal accommodation Additional comments: No subconjunctival hemorrhage noted. - ENT ENT exam: Present: mucous membranes moist - Neck Neck exam: Present: normal inspection - Respiratory Respiratory exam: Present: CTAB. Absent: rales, respiratory distress, rhonchi, wheezes - Cardiovascular Cardiovascular exam: Present: RRR, +S1, +S2 - GI/Abdominal GI/Abdominal exam: Present: distended (obese), normal bowel sounds, soft. Absent: tenderness - Extremities Exam Extremities exam: Present: pedal edema (1+ right LE). Absent: tenderness Additional comments: Right LE post-op dressing/splint noted to the be C/D/I. - Neurological Exam Neurological exam: Present: alert, oriented X3, no focal deficits - Psychiatric Psychiatric exam: Present: normal affect, normal mood - Skin Skin exam: Present: dry, intact, normal color, warm - VTE Documentation of Mechanical Device: Venous foot pump, device Consult Discharge Plan - Plan Referrals: Johnie Farley MD [Primary Care Provider] - Anne Hanson CNP [Advanced Practice Nurse] - 11/20/17 9:40 am - Attending Attestation I examined this patient and my medical decision-making was reviewed with the Resident Physician. I agree with the documented findings, disposition and treatment plan as described except to the extent set forth below.
[2017-11-03] MEDS: Acetaminophen 325 MG TABLET PO PRN (11:04)
[2017-11-03] MEDS ORDERED: Ipratropium/Albuterol Neb 3 ML IH ONE (11:06)
--- NOTE | 2017-11-03 14:29 | Physician Discharge Referral ---
<Dee Sellers L - Last Filed: 11/03/17 14:27> ExtendedCare Referral Info Transfer To: ECF Provider in Charge: Provider in Charge after Transfer: PCP Institutional Level of Care: Skilled - Diagnosis (1) Prosthetic joint infection Priority: Primary Status: Acute (2) MRSA bacteremia Priority: Primary Status: Acute (3) Morbid obesity with BMI of 40.0-44.9, adult Priority: Secondary Status: Chronic (4) Acute blood loss anemia Status: Acute (5) Sepsis Priority: Secondary Status: Suspected (6) Infection of right knee Status: Acute - Transfer Medications Prescriptions: OxyCODONE Immed Rel [Roxicodone 5 MG] 5 mg PO Q6-8H PRN 5 Days #20 tablet PRN Reason: Severe Pain Rifampin [Rifadin] 300 mg PO BID #84 capsule Home Medications: Atorvastatin [Lipitor] 40 mg PO HS 04/10/15 [History] Sertraline [Zoloft] 100 mg PO DAILY 04/10/15 [History] Levothyroxine [Synthroid] 112 mcg PO QAM 09/01/16 [History] Potassium Chloride [Klor-Con 10] 20 meq PO BID 09/01/16 [History] Mirabegron [Myrbetriq] 50 mg PO DAILY 06/29/17 [History] Furosemide [Lasix] 40 mg PO DAILY #30 07/17/17 [Rx] Pantoprazole Sodium [Protonix] 40 mg PO BID #60 tablet. 07/17/17 [Rx] BuPROPion SR (12 HR) [Wellbutrin SR] 150 mg PO BID 07/26/17 [History] Oxybutynin [Ditropan] 5 mg PO DAILY #30 tablet 08/16/17 [Rx] Amitriptyline [Elavil] 25 mg PO HS 09/19/17 [History] Buspirone HCl [Buspar] 10 mg PO BID 09/19/17 [History] Famotidine [Heartburn Prevention] 20 mg PO DAILY 09/19/17 [History] Fluticasone Propionate [Flovent Hfa] 1 puff IH BID 09/19/17 [History] Nystatin POWDER [Nystop] 1 appl TP BID 09/19/17 [History] Quetiapine Fumarate [Seroquel] 75 mg PO HS 09/19/17 [History] Diphenoxylate/Atropine [Lomotil 2.5 mg/0.025 mg] 1 tab PO QID PRN 09/23/17 [ History] Melatonin/Pyridoxine HCl (B6) [Melatonin 5 mg Tablet] 5 mg PO HS PRN 09/23/17 [ History] Beclomethasone Diprop 80mcg [QVAR 80 mcg] 1 puff IH BIDR puff 10/09/17 [Rx] Aspirin Enteric Coated [Aspirin EC] 325 mg PO BID #20 tablet. 10/13/17 [Rx] Ibuprofen [Motrin] 600 mg PO BID PRN 10/29/17 [History] Rifampin [Rifadin] 300 mg PO BID #84 capsule 11/08/17 [Rx] OxyCODONE Immed Rel [Roxicodone 5 MG] 5 mg PO Q6-8H PRN 5 Days #20 tablet [Rx] Allergies/Adverse Reactions: 3 Allergy/AdvReac Type Severity Reaction Status Date / Time No Known Allergies Allergy Verified 10/29/17 17:11 - Respiratory Orders None Smoking Cessation: Smoking cessation has been advised. For more information, call the [employer] Tobacco Quit Line at 2-909-JMKV-NOW. - Mobility Orders Chair, Ambulate - Rehabiliation Orders Rehab Orders: Evaluation for Physical Therapy, Evaluation for Occupational Therapy - Treatments List/Other: Irrigation debridement poly-exchange right total knee 11/03/17 Findings: Disruption of extensor mechanism secondary to trauma patient had multiple falls since surgery patient with a history of MRSA UTI cultures positive for MRSA no gross pus serosanguineous fluid Patient resting at bedside Continue drain, pull drain tomorrow AM - discussed with nurse. Keep medial/lateral splints with posterior slab. Continue with daily wound checks and dressing changes per saturation. D/C plan: [facility] - pending Auth - likely D/C on Monday. Continue PT No Knee ROM Continue IV Vancomycin x 6 weeks, with Infectious disease follow up - Diet Orders Regular CERTIFICATION: I certify that the transfer of the above named patient to an Extended Care Facility is necessary for the continuing treatment of the diagnosis listed. The above information is true and accurate reflection of patient's current condition. Confidential - Redisclosure prohibited without a patient's written consent. <Kimi Zuñiga E - Last Filed: 11/09/17 13:24> - Diagnosis (1) Prosthetic joint infection Status: Acute (2) Status post total right knee replacement Status: Chronic (3) Knee contusion Status: Acute - Respiratory Orders Smoking Cessation: Smoking cessation has been advised. For more information, call the [place] Tobacco Quit Line at 7-776-SEKANOW. CERTIFICATION: I certify that the transfer of the above named patient to an Extended Care Facility is necessary for the continuing treatment of the diagnosis listed. The above information is true and accurate reflection of patient's current condition. Confidential - Redisclosure prohibited without a patient's written consent.
[2017-11-03] MEDS: Ibuprofen 600 MG TABLET PO PRN (16:25)
[2017-11-03] MEDS: FLUTICASONE PROPIONATE IH SCH (22:01)
[2017-11-03] MEDS: Melatonin 3 MG TABLET PO SCH (22:01)
[2017-11-04 05:53] LABS: Hematocrit 23.8 % (35.3-44.9); Hemoglobin 7.7 g/dL (11.5-15.4)
[2017-11-04 06:13] LABS: BUN/Creatinine Ratio 12 (6-26); Blood Urea Nitrogen 9 mg/dL (6-20); Calcium 7.5 mg/dL (8.6-10.3); Carbon Dioxide 28 mEq/L (23-29); Chloride 109 mEq/L (98-107); Glucose 93 mg/dL (70-105); Osmolality,Calculated 290 (280-300); Potassium 3.8 mEq/L (3.5-5.1); Sodium 141 mEq/L (136-145); eGFR For African Americans > 60 (> 60); eGFR For Non-African Americans > 60 (> 60)
[2017-11-04] MEDS: FLUTICASONE PROPIONATE IH SCH ×2 (08:20→21:10)
[2017-11-04] MEDS: Mirabegron [Myrbetriq] 50 MG PO SCH (08:20)
[2017-11-04] MEDS: *HR* OxyCODONE Immed Rel 5 MG TABLET PO PRN ×3 (08:25→21:08)
[2017-11-04] MEDS: Famotidine 20 MG TABLET PO SCH (08:25)
[2017-11-04] MEDS: BuPROPion SR (12 HR) 150 MG TABLET PO SCH ×2 (08:26→21:10)
[2017-11-04] MEDS: Magnesium Oxide 400 MG TABLET PO SCH ×2 (08:26→21:10)
[2017-11-04] MEDS: Gabapentin 300 MG CAPSULE PO SCH ×3 (08:26→21:09)
[2017-11-04] MEDS: Furosemide 20 MG TABLET PO SCH (08:26)
[2017-11-04] MEDS ORDERED: *HR* OxyCODONE Immed Rel 5 MG TABLET PO ONE (09:30)
[2017-11-04] MEDS: Beclomethasone 80mcg MDI IH SCH ×2 (10:16→20:00)
--- NOTE | 2017-11-04 12:45 | Internal Med Progress Note ---
Date of Encounter: 11/04/17 Time of Encounter: 09:00 - Assessment and plan (1) Sepsis Current Visit: Yes Status: Acute Assessment and plan: Due to MRSA infection of right knee prosthetic joint. On IV vancomycin. Recommended 6 weeks of IV vancomycin. Rifampin 300 mg by mouth twice a day to be started at discharge from the hospital. Infectious disease and orthopedics following. Blood cultures from 10/31 and 11/01 remain negative. Right knee wound culture from 11/02 positive for staph aureus. Qualifiers: Sepsis type: methicillin resistant Staphylococcus aureus Qualified Code(s) : A41.02 - Sepsis due to Methicillin resistant Staphylococcus aureus (2) Prosthetic joint infection Current Visit: Yes Status: Acute Assessment and plan: Management as above. Patient underwent irrigation and debridement poly- exchange of right total knee on 11/02. Follow orthopedics recommendations. Awaiting placement to skilled rehabilitation. Continue current antibiotics. Qualifiers: Encounter type: initial encounter Qualified Code(s): T84.50XA - Infection and inflammatory reaction due to unspecified internal joint prosthesis, initial encounter (3) Anemia Current Visit: Yes Status: Chronic Assessment and plan: Hemoglobin 7.7 today. Patient received 1 unit packed red blood cells on 11/02. So far she has received 3 units of packed red blood cells. We will monitor hemoglobin levels and transfuse as needed if blood counts trend downwards. Qualifiers: Anemia type: unspecified type Qualified Code(s): D64.9 - Anemia, unspecified (4) UTI (urinary tract infection) Current Visit: Yes Status: Resolved Assessment and plan: Treated. Due to Escherichia coli. Qualifiers: Urinary tract infection type: acute cystitis Hematuria presence: without hematuria Qualified Code(s): N30.00 - Acute cystitis without hematuria (5) Status post total right knee replacement Current Visit: Yes Status: Chronic Assessment and plan: With acute joint infection. (6) DVT prophylaxis Current Visit: Yes Status: Acute Assessment and plan: With SCDs. Medical anticoagulation had been held due to bleeding per rectum. Consider resuming medical anticoagulation if blood counts remain stable. Patient does have high risk for DVT. (7) Morbid obesity with BMI of 40.0-44.9, adult Current Visit: No Status: Chronic - Subjective Interval history: Patient complaining of pain in her right knee. Worsened compared to yesterday. No fever or chills reported overnight. No nausea or vomiting. No other complaints at this time. - Constitutional Vitals: Temp Pulse Resp BP Pulse Ox 97.6 F 85 16 110/68 98 11/04/17 07:15 11/04/17 07:15 11/04/17 10:16 11/04/17 07:15 11/04/17 10:16 General appearance: Present: cooperative, mild distress, A&O X 3, morbidly obese , pleasant, answers questions appropriately - Neck Neck exam general surgery: Present: supple, trachea midline. Absent: lymphadenopathy - Respiratory Respiratory exam: Present: CTAB. Absent: accessory muscle use, rales, rhonchi, wheezes - Cardiovascular Cardiovascular exam: Present: RRR, +S1, +S2. Absent: diastolic murmur, gallop, rubs, systolic murmur - GI/Abdominal GI/Abdominal exam: Present: normal bowel sounds, soft, no peritoneal signs. Absent: distended, tenderness - Extremities Exam Extremities exam: Present: warm, radial pulses palpable and symmetrical. Absent : calf tenderness, cyanotic, pedal edema Additional comments: Right knee and lower extremity bandaged. - Neurological Exam Neurological exam: Present: alert, oriented X3, no focal deficits. Absent: facial droop, speech deficit - Skin Skin exam: Present: dry, intact Internal Medicine: Result - Labs CBC & Chem 7: 11/04/17 05:40 11/04/17 04:00 Labs: Short CBC 11/04/17 Range/Units 05:40 Hgb 7.7 L (11.5-15.4) g/dL Hct 23.8 L (35.3-44.9) % BMP 11/04/17 04:00 Sodium 141 Potassium 3.8 Chloride 109 H Carbon Dioxide 28 BUN 9 Creatinine 0.75 Glucose 93 Calcium 7.5 L - VTE Documentation of Mechanical Device: Venous foot pump, device Consult Discharge Plan - Plan Referrals: Johnie Farley MD [Primary Care Provider] - Anne Hanson CNP [Advanced Practice Nurse] - 11/20/17 9:40 am
[2017-11-04] MEDS: Ibuprofen 600 MG TABLET PO PRN (13:03)
[2017-11-04 13:30] LABS: Hematocrit 29.8 % (35.3-44.9); Hemoglobin 9.4 g/dL (11.5-15.4)
[2017-11-04] MEDS: Nystatin POWDER 30 GM BOTTLE TP SCH ×2 (15:28→21:10)
--- NOTE | 2017-11-04 16:14 | Orthopedics Progress Note ---
Date of Encounter: 11/04/17 Time of Encounter: 16:12 Subjective Principal diagnosis: Left infected total knee arthroplasty Interval history: Patient is comfortable without complaints Left lower extremity: Dressings are clean dry intact, splints are in place Drains were pulled this morning. Posterior calf is soft and nontender, she is neurovascularly intact distally Right calf is soft and nontender Postoperative #2, stable Plan: Continue IV antibiotics No range of motion of left knee Objective Vital signs: Vital Signs Temp Pulse Resp BP Pulse Ox 11/04/17 15:33 97.9 F 92 16 126/76 97 11/04/17 13:00 98.4 F 89 16 133/85 95 11/04/17 10:16 16 98 11/04/17 07:15 97.6 F 85 14 110/68 95 11/04/17 00:42 97.7 F 71 14 118/69 100 11/03/17 20:51 16 97 11/03/17 20:23 97.7 F 86 16 122/72 97 Intake and Output 11/04/17 11/04/17 11/04/17 07:59 15:59 23:59 Intake Total 600 / 600 Output Total 390 / 390 Balance 210 / 210 Intake: Oral 600 / 600 Output: Urine 350 / 350 Wound Drainage 40 / 40 Right Knee 40 / 40 Other: Meal Lunch Percent of Meal Consumed 85% # Voids 1 1 - Labs CBC & BMP: 11/04/17 13:10 11/04/17 04:00 Labs: Abnormal lab results WBC 4.2 K/mcL (4.3-11.1) L 11/02/17 03:25 RBC 2.64 M/mcL (3.82-4.97) L 11/02/17 03:25 Hgb 9.4 g/dL (11.5-15.4) L D 11/04/17 13:10 Hct 29.8 % (35.3-44.9) L 11/04/17 13:10 RDW 16.0 % (11.5-14.5) H 11/02/17 03:25 Plt Count 137 K/mcL (140-400) L 11/02/17 03:25 ESR 86 mm/hr (0-15) H 10/29/17 17:16 Chloride 109 mEq/L (98-107) H 11/04/17 04:00 Calcium 7.5 mg/dL (8.6-10.3) L 11/04/17 04:00 Magnesium 0.9 mg/dL (1.6-2.6) L 11/01/17 10:24 Iron < 10 mcg/dL (50-170) L 10/30/17 01:17 Transferrin 169 mg/dL (203-362) L 10/30/17 01:17 Ferritin 647 ng/ml (10-120) H 10/30/17 01:17 AST 11 Units/L (13-39) L 10/29/17 17:16 Alkaline Phosphatase 125 Units/L (34-104) H 10/29/17 17:16 C-Reactive Protein 288 mg/L (Less than 10) H 10/29/17 17:16 Serum Total Protein 6.1 g/dL (6.4-8.9) L 10/29/17 17:16 Vitamin B12 166 pg/mL (250-1100) L 10/30/17 01:17 Urine Clarity Cloudy (Clear) A 10/29/17 17:00 Ur Specific [place] 1.009 (1.010-1.025) L 10/29/17 17:00 Urine Nitrite Positive (Negative) A 10/29/17 17:00 Ur Leukocyte Esterase Large (Negative) H 10/29/17 17:00 Urine Microscopic WBC 50-100 per hpf (0-3) H 10/29/17 17:00 Ur Squamous Epith Cells Many per lpf (None-Few) H 10/29/17 17:00 Urine Bacteria Many per hpf (None-Few) H 10/29/17 17:00 Vancomycin Trough 24.1 mcg/mL (10-20) H* 11/03/17 11:36 Staphylococcus sp PCR DETECTED (Not Detect) A 10/29/17 17:16 Staph aureus (PCR) DETECTED (Not Detect) A 10/29/17 17:16 mecA-Methicil Res Gene DETECTED (Not Detect) A 10/29/17 17:16 Antibody Screen POSITIVE A 10/30/17 03:18 - VTE Documentation of Mechanical Device: Venous foot pump, device Consult Discharge Plan - Plan Referrals: Johnie Farley MD [Primary Care Provider] - Anne Hanson CNP [Advanced Practice Nurse] - 11/20/17 9:40 am
[2017-11-04] MEDS: Melatonin 3 MG TABLET PO SCH (21:10)
[2017-11-05] MEDS: *HR* OxyCODONE Immed Rel 5 MG TABLET PO PRN ×2 (06:09→13:06)
[2017-11-05] MEDS: Famotidine 20 MG TABLET PO SCH (07:32)
[2017-11-05] MEDS: Gabapentin 300 MG CAPSULE PO SCH ×3 (07:32→20:32)
[2017-11-05] MEDS: BuPROPion SR (12 HR) 150 MG TABLET PO SCH ×2 (07:32→20:32)
[2017-11-05] MEDS: Ibuprofen 600 MG TABLET PO PRN ×2 (07:33→20:33)
[2017-11-05] MEDS: Magnesium Oxide 400 MG TABLET PO SCH ×2 (07:33→20:32)
[2017-11-05] MEDS: Furosemide 20 MG TABLET PO SCH (07:33)
[2017-11-05] MEDS: Mirabegron [Myrbetriq] 50 MG PO SCH (07:34)
[2017-11-05 08:17] LABS: Basophils % 0.3 %; Eosinophils # 0.1 K/mcL (0.0-0.6); Hemoglobin 8.7 g/dL (11.5-15.4); Immature Granulocytes % 1.8 % (0-4); Lymphocytes % 15.7 %; Mean Corpuscular HGB Conc 32.2 g/dL (31.6-35.5); Mean Corpuscular Hemoglobin 28.7 pg (28.0-33.3); Mean Corpuscular Volume 89.1 fL (83.0-100.0); Mean Platelet Volume 10.4 fL (9.4-12.4); Monocytes # 0.5 K/mcL (0.0-1.3); Monocytes % 7.9 %; Neutrophils # 4.8 K/mcL (1.6-8.9); Platelet Count 201 K/mcL (140-400); Red Blood Count 3.03 M/mcL (3.82-4.97); Red Cell Distribution Width 15.5 % (11.5-14.5); Segmented Neutrophils % 72.3 %
[2017-11-05 08:42] LABS: BUN/Creatinine Ratio 10 (6-26); Blood Urea Nitrogen 8 mg/dL (6-20); Carbon Dioxide 31 mEq/L (23-29); Chloride 103 mEq/L (98-107); Potassium 3.9 mEq/L (3.5-5.1); Sodium 138 mEq/L (136-145); eGFR For African Americans > 60 (> 60)
[2017-11-05 08:43] LABS: Calcium 8.3 mg/dL (8.6-10.3); Glucose 99 mg/dL (70-105); Osmolality,Calculated 284 (280-300); eGFR For Non-African Americans > 60 (> 60)
[2017-11-05] MEDS: Beclomethasone 80mcg MDI IH SCH ×2 (10:40→20:56)
[2017-11-05] MEDS: Acetaminophen 325 MG TABLET PO PRN (10:53)
[2017-11-05] MEDS: Nystatin POWDER 30 GM BOTTLE TP SCH ×2 (10:53→20:35)
[2017-11-05] MEDS: FLUTICASONE PROPIONATE IH SCH ×2 (10:54→20:29)
--- NOTE | 2017-11-05 10:56 | Internal Med Progress Note ---
Date of Encounter: 11/05/17 Time of Encounter: 08:45 - Assessment and plan (1) Sepsis Current Visit: Yes Status: Acute Assessment and plan: Due to MRSA. Wound culture growing MRSA. Continue IV vancomycin. Plan for 6 weeks of IV vancomycin therapy. Start rifampin at time of discharge. Follow up with infectious disease and orthopedics after discharge. Awaiting placement to skilled rehabilitation. Moderate risk for complications. Qualifiers: Sepsis type: methicillin resistant Staphylococcus aureus Qualified Code(s) : A41.02 - Sepsis due to Methicillin resistant Staphylococcus aureus (2) Prosthetic joint infection Current Visit: Yes Status: Acute Assessment and plan: Continue IV vancomycin. Status post irrigation and debridement and poly- exchange. Orthopedics following. Qualifiers: Encounter type: initial encounter Qualified Code(s): T84.50XA - Infection and inflammatory reaction due to unspecified internal joint prosthesis, initial encounter (3) Anemia Current Visit: Yes Status: Chronic Assessment and plan: Improved. Hemoglobin 8.7 today. Qualifiers: Anemia type: unspecified type Qualified Code(s): D64.9 - Anemia, unspecified (4) UTI (urinary tract infection) Current Visit: Yes Status: Resolved Assessment and plan: Completed treatment. Qualifiers: Urinary tract infection type: acute cystitis Hematuria presence: without hematuria Qualified Code(s): N30.00 - Acute cystitis without hematuria (5) Status post total right knee replacement Current Visit: Yes Status: Chronic Assessment and plan: With acute prosthetic joint infection. Orthopedics following (6) DVT prophylaxis Current Visit: Yes Status: Acute Assessment and plan: Continue SCDs. Will place patient back on Lovenox for prophylaxis. (7) Morbid obesity with BMI of 40.0-44.9, adult Current Visit: No Status: Chronic - Subjective Interval history: Patient continues to have pain in right knee but pain is well controlled. Denies any chest pain shortness of breath. No other complaints at this time. Tolerating diet well. No bleeding per rectum. - Constitutional Vitals: Temp Pulse Resp BP Pulse Ox 98.2 F 77 14 125/77 92 11/05/17 07:25 11/05/17 07:25 11/05/17 07:25 11/05/17 07:25 11/05/17 07:25 General appearance: Present: cooperative, mild distress, A&O X 3, morbidly obese , pleasant, answers questions appropriately - Neck Neck exam general surgery: Present: supple, trachea midline. Absent: lymphadenopathy - Respiratory Respiratory exam: Present: CTAB. Absent: accessory muscle use, rales, rhonchi, wheezes - Cardiovascular Cardiovascular exam: Present: RRR, +S1, +S2. Absent: diastolic murmur, gallop, rubs, systolic murmur - GI/Abdominal GI/Abdominal exam: Present: normal bowel sounds, soft, no peritoneal signs. Absent: distended, tenderness - Extremities Exam Extremities exam: Present: warm, radial pulses palpable and symmetrical. Absent : calf tenderness, cyanotic, pedal edema Additional comments: Right knee and leg bandaged - Neurological Exam Neurological exam: Present: CN II-XII intact, oriented X3, no focal deficits. Absent: facial droop, speech deficit - Skin Skin exam: Present: dry, intact Internal Medicine: Result - Labs CBC & Chem 7: 11/05/17 07:30 11/05/17 07:30 Labs: Short CBC 11/04/17 11/05/17 Range/Units 13:10 07:30 WBC 6.6 D (4.3-11.1) K/mcL Hgb 9.4 L D 8.7 L (11.5-15.4) g/dL Hct 29.8 L 27.0 L (35.3-44.9) % Plt Count 201 (140-400) K/mcL Neutrophils # 4.8 (1.6-8.9) K/mcL BMP 11/05/17 07:30 Sodium 138 Potassium 3.9 Chloride 103 Carbon Dioxide 31 H BUN 8 Creatinine 0.82 Glucose 99 Calcium 8.3 L - VTE Documentation of Mechanical Device: Venous foot pump, device Consult Discharge Plan - Plan Referrals: Johnie Farley MD [Primary Care Provider] - Anne Hanson CNP [Advanced Practice Nurse] - 11/20/17 9:40 am
--- NOTE | 2017-11-05 13:01 | Event Note ---
Date of Encounter: 11/05/17 Time of Encounter: 13:00 Patient is comfortable, recently IV antibiotics Patient for rehabilitation tomorrow for long-term IV antibiotics
[2017-11-05] MEDS: *HR* Enoxaparin 40 MG/0.4 ML SYRINGE SQ SCH (13:06)
[2017-11-05] MEDS: Melatonin 3 MG TABLET PO SCH (20:32)
[2017-11-06] MEDS: *HR* Enoxaparin 40 MG/0.4 ML SYRINGE SQ SCH (06:02)
[2017-11-06] MEDS: Gabapentin 300 MG CAPSULE PO SCH ×3 (08:41→21:14)
[2017-11-06] MEDS: Magnesium Oxide 400 MG TABLET PO SCH ×2 (08:41→21:14)
[2017-11-06] MEDS: Famotidine 20 MG TABLET PO SCH (08:41)
[2017-11-06] MEDS: Furosemide 20 MG TABLET PO SCH (08:41)
[2017-11-06] MEDS: BuPROPion SR (12 HR) 150 MG TABLET PO SCH ×2 (08:41→21:14)
[2017-11-06] MEDS: Nystatin POWDER 30 GM BOTTLE TP SCH ×2 (08:42→21:15)
[2017-11-06] MEDS: FLUTICASONE PROPIONATE IH SCH (08:42)
[2017-11-06] MEDS: *HR* OxyCODONE Immed Rel 5 MG TABLET PO PRN ×3 (08:50→22:49)
[2017-11-06] MEDS: Mirabegron [Myrbetriq] 50 MG PO SCH (08:54)
--- NOTE | 2017-11-06 09:47 | Infectious Disease Progress No ---
Date of Encounter: 11/06/17 Time of Encounter: 09:45 - Assessment and Plan (1) Sepsis Current Visit: Yes Status: Acute The patient had two SIRS criteria on admission. Likely secondary to bacteremia and right knee infection. Improved. Afebrile. Tachycardia has resolved. Blood cultures drawn 10/29/17 are positive 2/2 sets for MRSA. Repeat blood cultures drawn 10/30/17 are negative 2/2 sets, 10/31/17 are negative x 2 sets, and 11/01/17 are NGTD x 1 set. Qualifiers: Qualified Code(s): A41.02 - Sepsis due to Methicillin resistant Staphylococcus aureus (2) Bacteremia Current Visit: Yes Status: Acute Causative organism: MRSA. 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 Complicated due to presence of right knee hardware. Blood cultures drawn 10/29/17 are positive 2/2 sets for MRSA. Repeat blood cultures drawn 10/30/17 are negative 2/2 sets, 10/31/17 are negative x 2 sets, and 11/01/17 are NGTD x 1 set. X-ray of the right knee showed persistent anterior skin swelling and a small suprapatellar joint effusion. ESR 86, CRP 288 No endocarditis stigmata noted on exam. She has one major and one minor Modified De La Cruz's Criteria. TTE was negative. Will need EVER prior to discharge. Notified the primary team. Continue Vancomycin IV. Pharmacy to dose. Goal trough ~15. Vanc trough 17.5 this morning. Duration of treatment depends on the clinical picture, but likely 6 weeks due to the complicated nature of the infection and the PJI. Monitor renal function and for drug toxicity and dose-adjust antibiotics. Continue contact precautions per protocol. (3) Prosthetic joint infection Current Visit: Yes Status: Acute Location: Right knee. Causative organism: MRSA Likely secondary to recent surgical procedure. Acute onset. Status post bedside aspiration 10/31/17 that yielded 2ml of bloody fluid that is culture positive for MRSA. Ortho consulted. Status post I & D of the right knee 11/02/[address] Luong. Operative note reviewed. Serosanguinous drainage noted intra-op. Cultures obtained and are positive for MRSA as well. Continue antibiotics as above. Will add rifampin 300mg PO BID at discharge. Check LFTs. Add to AM labs. Wound care and activity restrictions per the ortho team. industrial services worker to assist with discharge planning. Awaiting insurance authorization for ECF placement. Will need 6 weeks of IV antibiotics. Will need weekly CBC, BUN/Cr, ESR, CRP, LFTs, and Vanc trough. Will need weekly PICC care per protocol. Follow up with ID 11/20/17 at 0940. Qualifiers: Qualified Code(s): T84.50XA - Infection and inflammatory reaction due to unspecified internal joint prosthesis, initial encounter (4) UTI (urinary tract infection) Current Visit: Yes Status: Resolved Causative organism: E. coli. Symptoms have resolved. Completed 5 days of treatment. Qualifiers: Qualified Code(s): N30.00 - Acute cystitis without hematuria (5) Anemia Current Visit: Yes Status: Chronic Etiology unclear. Hgb 8.7 this morning. FOBT negative. Further evaluation and treatment per the primary team. Qualifiers: Qualified Code(s): D64.9 - Anemia, unspecified (6) Status post total right knee replacement Current Visit: Yes Status: Chronic Status post right total knee replacement 10/13/[address] Luong. (7) Morbid obesity with BMI of 40.0-44.9, adult Current Visit: No Status: Chronic (8) Multiple sclerosis Current Visit: No Status: Chronic - Subjective Interval history: Patient seen and examined. Weekend notes reviewed. No acute events noted overnight. Patient sitting up in the bedside chair. Complains of knee pain 10 due to just having her dressing changed. Denies fevers, chills, or rigors. Denies chest pain, shortness of breath, or cough. Denies nausea or vomiting. States her appetite is better and she is hungry this morning. Denies abdominal pain or urinary complaints. Reports diarrhea has resolved. Per nursing, drainage has improved. Denies oral thrush or skin lesions. Infect Dis PN-Objective Data - Labs CBC & Chem 7: 11/05/17 07:30 11/05/17 07:30 Labs: Laboratory Results - last 24 hr 11/05/17 14:35 Vancomycin Trough 17.5 Cultures: Cultures 10/31/17 16:58 Anaerobic Culture - Final Right Knee No anaerobes were recovered. 11/01/17 05:19 Blood Culture - Final Peripheral Venipuncture No growth. 10/31/17 20:31 Blood Culture - Final Peripheral Venipuncture No growth. 10/31/17 20:35 Blood Culture - Final Peripheral Venipuncture No growth. 10/30/17 20:38 Blood Culture - Final Peripheral Venipuncture No growth. 10/30/17 20:38 Blood Culture - Final Peripheral Venipuncture No growth. 11/02/17 15:55 Anaerobic Culture - Preliminary Right Knee At this time, no anaerobic growth is present. The culture will be finalized after 5 days of incubation. 11/02/17 15:55 Wound Culture - Final Right Knee Methicillin Resistant S.aureus 10/31/17 16:58 Body Fluid Culture - Final Synovial Fluid Methicillin Resistant S.aureus 10/31/17 16:58 Gram Stain - Final Right Knee Exam - Constitutional Vitals: Temp Pulse Resp BP Pulse Ox 98.5 F 87 20 115/77 96 11/06/17 06:35 11/06/17 06:35 11/06/17 06:35 11/06/17 06:35 11/06/17 06:35 General appearance: cooperative, no acute distress, obese - Head Head exam: Present: atraumatic, normal inspection, normocephalic - Eye Eye exam: Present: EOMI, normal appearance, PERRL Pupils: Present: normal accommodation Additional comments: No subconjunctival hemorrhage noted. - ENT ENT exam: Present: mucous membranes moist - Neck Neck exam: Present: normal inspection - Respiratory Respiratory exam: Present: CTAB. Absent: rales, respiratory distress, rhonchi, wheezes - Cardiovascular Cardiovascular exam: Present: RRR, +S1, +S2 - GI/Abdominal GI/Abdominal exam: Present: distended (obese), normal bowel sounds, soft. Absent: tenderness - Extremities Exam Extremities exam: Present: pedal edema (1+ BLE), tenderness (BLE) Additional comments: Right knee dressing/splint C/D/I. - Neurological Exam Neurological exam: Present: alert, oriented X3, no focal deficits - Psychiatric Psychiatric exam: Present: normal affect, normal mood - Skin Skin exam: Present: dry, intact, normal color, warm Additional comments: No endocarditis stigmata noted. - VTE Documentation of Mechanical Device: Venous foot pump, device Consult Discharge Plan - Plan Referrals: Johnie Farley MD [Primary Care Provider] - Anne Hanson ASSOCIATE PROFESSOR [employer] ENGLISH [Advanced Practice Nurse] - 11/20/17 9:40 am - Attending Attestation I examined this patient and my medical decision-making was reviewed with the Resident Physician. I agree with the documented findings, disposition and treatment plan as described except to the extent set forth below.
[2017-11-06] MEDS: Beclomethasone 80mcg MDI IH SCH ×2 (10:20→20:03)
[2017-11-06] MEDS: Ibuprofen 600 MG TABLET PO PRN (11:08)
[2017-11-06 12:44] LABS: Albumin 3.1 g/dL (3.5-5.7); Albumin/Globulin Ratio 1.3 (1.1-2.2); Bilirubin,Direct 0.1 mg/dL (0.0-0.2); Bilirubin,Indirect 0.4 mg/dL (0.0-1.2); Bilirubin,Total 0.5 mg/dL (0.3-1.0); Globulin 2.4 g/dL (2.4-3.5); Total Protein 5.5 g/dL (6.4-8.9)
--- NOTE | 2017-11-06 14:05 | Internal Med Progress Note ---
<ErikAamir - Last Filed: 11/06/17 15:16> Date of Encounter: 11/06/17 Time of Encounter: 14:03 - Assessment and plan (1) Prosthetic joint infection Current Visit: Yes Status: Acute Assessment and plan: Currently on vancomycin IV day 8. Patient to continue IV vancomycin outpatient an extended care facility. Per infectious disease, they recommended a transesophageal echocardiogram. This is to rule out vegetations and infective endocarditis due to bacteremia with MRSA. Patient will be held nothing by mouth at midnight. Transport to extended care facility and discharge from the hospital is pending the results from the transesophageal echocardiogram. Qualifiers: Encounter type: initial encounter Qualified Code(s): T84.50XA - Infection and inflammatory reaction due to unspecified internal joint prosthesis, initial encounter (2) Bacteremia Current Visit: Yes Status: Acute Assessment and plan: See above. (3) Sepsis Current Visit: Yes Status: Acute Assessment and plan: See above Qualifiers: Sepsis type: methicillin resistant Staphylococcus aureus Qualified Code(s) : A41.02 - Sepsis due to Methicillin resistant Staphylococcus aureus (4) Anemia Current Visit: Yes Status: Chronic Assessment and plan: Hemoglobin that was obtained yesterday was stable. Patient is not complaining of any sources of bleeding at this time. Qualifiers: Anemia type: unspecified type Qualified Code(s): D64.9 - Anemia, unspecified (5) Multiple sclerosis Current Visit: No Status: Chronic (6) Status post total right knee replacement Current Visit: Yes Status: Chronic (7) Morbid obesity with BMI of 40.0-44.9, adult Current Visit: No Status: Chronic - Subjective Interval history: Patient having no complaints today. Not complaining of any shortness of breath , diarrhea, nausea, vomiting, blood in stool. Infectious disease request that we obtain a transesophageal echocardiogram to rule out any valve vegetations and evidence of infective endocarditis. - Constitutional Vitals: Temp Pulse Resp BP Pulse Ox 99.2 F 88 18 128/84 95 11/06/17 10:57 11/06/17 10:57 11/06/17 10:57 11/06/17 10:57 11/06/17 10:57 General appearance: Present: cooperative, A&O X 3, morbidly obese, pleasant, answers questions appropriately Exam: Pleasant 57-year-old female not in any acute distress. - Head Head exam: Present: atraumatic - Cardiovascular Cardiovascular exam: Present: RRR. Absent: diastolic murmur, systolic murmur - GI/Abdominal GI/Abdominal exam: Present: no peritoneal signs. Absent: guarding, tenderness - Neurological Exam Neurological exam: Present: CN II-XII intact, oriented X3 - Psychiatric Psychiatric exam: Present: normal affect, normal mood Internal Medicine: Result - Labs CBC & Chem 7: 11/05/17 07:30 11/05/17 07:30 Labs: Liver Function 11/06/17 Range/Units 11:45 Total Bilirubin 0.5 (0.3-1.0) mg/dL Direct Bilirubin 0.1 (0.0-0.2) mg/dL AST 9 L (13-39) Units/L ALT 13 (7-52) Units/L Alkaline Phosphatase 125 H (34-104) Units/L Albumin 3.1 L (3.5-5.7) g/dL - VTE Documentation of Mechanical Device: Venous foot pump, device Consult Discharge Plan - Plan Referrals: Johnie Farley MD [Primary Care Provider] - Anne Hanson CNP [Advanced Practice Nurse] - 11/20/17 9:40 am <Alen Camacho H - Last Filed: 11/06/17 17:55> Date of Encounter: 11/06/17 - Assessment and plan (1) Sepsis Current Visit: Yes Status: Acute Qualifiers: Sepsis type: methicillin resistant Staphylococcus aureus Qualified Code(s) : A41.02 - Sepsis due to Methicillin resistant Staphylococcus aureus (2) Bacteremia Current Visit: Yes Status: Acute (3) Infection of right knee Current Visit: Yes Status: Acute (4) UTI (urinary tract infection) Current Visit: Yes Status: Resolved Qualifiers: Urinary tract infection type: acute cystitis Hematuria presence: without hematuria Qualified Code(s): N30.00 - Acute cystitis without hematuria (5) Hypokalemia Current Visit: No Status: Resolved (6) Anemia Current Visit: Yes Status: Chronic Qualifiers: Anemia type: unspecified type Qualified Code(s): D64.9 - Anemia, unspecified (7) Status post total right knee replacement Current Visit: Yes Status: Chronic (8) Morbid obesity with BMI of 40.0-44.9, adult Current Visit: No Status: Chronic (9) Multiple sclerosis Current Visit: No Status: Chronic - Constitutional Vitals: Temp Pulse Resp BP Pulse Ox 98.2 F 85 18 113/75 93 11/06/17 14:24 11/06/17 14:24 11/06/17 14:24 11/06/17 14:24 11/06/17 14:24 Internal Medicine: Result - Labs CBC & Chem 7: 11/05/17 07:30 11/05/17 07:30 Labs: Liver Function 11/06/17 Range/Units 11:45 Total Bilirubin 0.5 (0.3-1.0) mg/dL Direct Bilirubin 0.1 (0.0-0.2) mg/dL AST 9 L (13-39) Units/L ALT 13 (7-52) Units/L Alkaline Phosphatase 125 H (34-104) Units/L Albumin 3.1 L (3.5-5.7) g/dL - Attending Attestation (1) Sepsis Current Visit: Yes Status: Suspected Assessment and plan: Sepsis secondary to MRSA bacteremia and MRSA right knee infection , E coli UTI Had a fever of 101.4 upon admission and heart rate of 108, blood pressure dropped to the 80s IV fluids, sent urine culture was not done upon admission, growing E coli urine culture from last month showed MRSA Stopped Rocephin at day #4, received Zosyn and vancomycin at the ER Continue Vancomycin IV ID consulted following, awaiting EVRE Right knee fluid culture, growing MRSA had knee revision by orthopedic surgery Qualifiers: Sepsis type: sepsis due to unspecified organism Qualified Code(s): A41.9 - Sepsis, unspecified organism (2) Bacteremia Current Visit: Yes Status: Acute Assessment and plan: possible MRSA bacteremia, ECHO did not show vegetations IV vancomycin (3) Infection of right knee Current Visit: Yes Status: Acute (4) UTI (urinary tract infection) Current Visit: Yes Status: Acute Qualifiers: Urinary tract infection type: acute cystitis Hematuria presence: without hematuria Qualified Code(s): N30.00 - Acute cystitis without hematuria (5) Hypokalemia Current Visit: No Status: Resolved Assessment and plan: having episodes of asymptomatic VT runs replete as needed Also hypomagnesemia Mg was 0.9, replete (6) Anemia Current Visit: Yes Status: Chronic Assessment and plan: acute blood loss anemia post surgery, constant small right knee surgical wound hemorrhage transfused 2 units of RBCs Qualifiers: Anemia type: unspecified type Qualified Code(s): D64.9 - Anemia, unspecified (7) Status post total right knee replacement Current Visit: Yes Status: Chronic Assessment and plan: Right knee contusion, history of right knee replaced on 10/13/[address] Luong Followed by orthopedic surgery (8) Morbid obesity with BMI of 40.0-44.9, adult Current Visit: No Status: Chronic (9) Multiple sclerosis Current Visit: No Status: Chronic I examined this patient and my medical decision-making was reviewed with the Resident Physician. I agree with the documented findings, disposition and treatment plan as described except to the extent set forth below.
--- NOTE | 2017-11-06 18:39 | Orthopedics Progress Note ---
Date of Encounter: 11/06/17 Time of Encounter: 08:10 - Assessment and Plan (1) Prosthetic joint infection Current Visit: Yes Status: Acute S/p R TKR 10/13/17 and I&D jamie exchange right knee 11/02/17 NO KNEE MOTION - alternate more permanent splint to be applied. WBAT in permanent splint. IV Vanc per ID x 6 weeks planned. Patient awaiting auth to [facility]. Will continue to follow. Qualifiers: Encounter type: initial encounter Qualified Code(s): T84.50XA - Infection and inflammatory reaction due to unspecified internal joint prosthesis, initial encounter (2) Status post total right knee replacement Current Visit: Yes Status: Chronic Patient to have wound care with cleansing and pressure dressing placed every 8- 12 hours. Immobilizer to be brought from home - unsure if relations from home able to bring brace therefore will work to get immobilizer in place while inpatient. Pain control and medical management per hospitalist team. PT/OT - NO KNEE MOTION. Will continue to follow while inpatient. (3) Knee contusion Current Visit: Yes Status: Acute Qualifiers: Encounter type: initial encounter Laterality: right Qualified Code(s): S80.01XA - Contusion of right knee, initial encounter Subjective Principal diagnosis: Left infected total knee arthroplasty Interval history: Ms. Copeland is a 57 year old female well known to [facility] having a right knee chronic dislocation failing conservative treatment and ultimately requiring right total knee replacement to restore stability and function to the knee on . Patient has been seen by this provider several times since her knee replacement in outpatient setting. Patient was to be wearing knee TROM brace in locked extension with no knee motion however patient has been non compliant with this and admits to falling several times since her replacement. She presented to [facility] ED per patient secondary to continued knee incision drainage however per record was secondary to a fall and was admitted for UTI with developing sepsis. Subsequently patient has had confirmed MRSA culture to the right knee joint and underwent I&D jamie exchange by Dr. Luong on 11/02/17 with findings of: Disruption of extensor mechanism secondary to trauma patient had multiple falls since surgery patient with a history of MRSA UTI cultures positive for MRSA no gross pus serosanguineous fluid. Patient was placed in splint to improve compliance with no knee motion. Patient seen today resting comfortably in chair. Patient eating breakfast upon entering. Patient alert and oriented to person and place but not time. Patient did recognize this provider this time today. Splint taken down and RLE incision intact, rebekah in place. Drain site noted with no erythema or drainage. No erythema to knee incision. No drainage able to be expressed. No calf tenderness noted. Neurovascularly intact to bilateral lower extremities. Honeycomb changed. Splint reapplied. S/p R TKR 10/13/17 and I&D jamie exchange right knee 11/02/17 NO KNEE MOTION - alternate more permanent splint to be applied. WBAT in permanent splint. Patient awaiting auth to [facility]. Will continue to follow. Objective Vital signs: Vital Signs Temp Pulse Resp BP Pulse Ox 11/06/17 14:24 98.2 F 85 18 113/75 93 11/06/17 10:57 99.2 F 88 18 128/84 95 11/06/17 10:23 20 96 11/06/17 06:35 98.5 F 87 20 115/77 96 11/06/17 03:34 98.3 F 80 14 108/69 93 11/05/17 23:32 97.8 F 87 16 99/68 96 11/05/17 21:00 16 94 11/05/17 19:53 98.0 F 88 16 134/83 93 Intake and Output 11/06/17 11/06/17 11/06/17 07:59 15:59 23:59 Output Total 300 / 300 Balance -300 / -300 Output: Urine 300 / 300 Other: Stool Size Small Stool Consistency liquid soft Stool Color Brown # Voids 1 1 Weight 112 kg Patient Weight 11/06/17 23:59 Weight 112 kg - Labs CBC & BMP: 11/05/17 07:30 11/05/17 07:30 Labs: Abnormal lab results RBC 3.03 M/mcL (3.82-4.97) L 11/05/17 07:30 Hgb 8.7 g/dL (11.5-15.4) L 11/05/17 07:30 Hct 27.0 % (35.3-44.9) L 11/05/17 07:30 RDW 15.5 % (11.5-14.5) H 11/05/17 07:30 ESR 86 mm/hr (0-15) H 10/29/17 17:16 Carbon Dioxide 31 mEq/L (23-29) H 11/05/17 07:30 Calcium 8.3 mg/dL (8.6-10.3) L 11/05/17 07:30 Magnesium 0.9 mg/dL (1.6-2.6) L 11/01/17 10:24 Iron < 10 mcg/dL (50-170) L 10/30/17 01:17 Transferrin 169 mg/dL (203-362) L 10/30/17 01:17 Ferritin 647 ng/ml (10-120) H 10/30/17 01:17 AST 9 Units/L (13-39) L 11/06/17 11:45 Alkaline Phosphatase 125 Units/L (34-104) H 11/06/17 11:45 C-Reactive Protein 288 mg/L (Less than 10) H 10/29/17 17:16 Serum Total Protein 5.5 g/dL (6.4-8.9) L 11/06/17 11:45 Albumin 3.1 g/dL (3.5-5.7) L 11/06/17 11:45 Vitamin B12 166 pg/mL (250-1100) L 10/30/17 01:17 Urine Clarity Cloudy (Clear) A 10/29/17 17:00 Ur Specific Bullock 1.009 (1.010-1.025) L 10/29/17 17:00 Urine Nitrite Positive (Negative) A 10/29/17 17:00 Ur Leukocyte Esterase Large (Negative) H 10/29/17 17:00 Urine Microscopic WBC 50-100 per hpf (0-3) H 10/29/17 17:00 Ur Squamous Epith Cells Many per lpf (None-Few) H 10/29/17 17:00 Urine Bacteria Many per hpf (None-Few) H 10/29/17 17:00 Staphylococcus sp PCR DETECTED (Not Detect) A 10/29/17 17:16 Staph aureus (PCR) DETECTED (Not Detect) A 10/29/17 17:16 mecA-Methicil Res Gene DETECTED (Not Detect) A 10/29/17 17:16 Antibody Screen POSITIVE A 10/30/17 03:18 - VTE Documentation of Mechanical Device: Venous foot pump, device Consult Discharge Plan - Plan Referrals: Johnie Farley MD [Primary Care Provider] - Anne Hanson CNP [Advanced Practice Nurse] - 11/20/17 9:40 am
[2017-11-06] MEDS: Acetaminophen 325 MG TABLET PO PRN (21:14)
[2017-11-06] MEDS: Melatonin 3 MG TABLET PO SCH (21:14)
[2017-11-07] MEDS: *HR* Enoxaparin 40 MG/0.4 ML SYRINGE SQ SCH (05:38)
[2017-11-07] MEDS: Beclomethasone 80mcg MDI IH SCH ×2 (07:22→20:39)
[2017-11-07] MEDS: BuPROPion SR (12 HR) 150 MG TABLET PO SCH ×2 (09:09→22:08)
[2017-11-07] MEDS: Furosemide 20 MG TABLET PO SCH (09:09)
[2017-11-07] MEDS: Famotidine 20 MG TABLET PO SCH (09:09)
[2017-11-07] MEDS: Magnesium Oxide 400 MG TABLET PO SCH ×2 (09:09→22:08)
[2017-11-07] MEDS: Mirabegron [Myrbetriq] 50 MG PO SCH (09:09)
[2017-11-07] MEDS: Gabapentin 300 MG CAPSULE PO SCH ×3 (09:09→22:08)
[2017-11-07] MEDS: *HR* OxyCODONE Immed Rel 5 MG TABLET PO PRN ×3 (09:46→22:07)
[2017-11-07] MEDS ORDERED: *HR* FentaNYL (PF) 100 MCG/2 ML VIAL IVP PRN (10:38)
[2017-11-07] MEDS ORDERED: Lidocaine Viscous Oral Soln 15 ML SOLUTION MM PRN (10:38)
[2017-11-07] MEDS ORDERED: Tetracaine/Benzocaine/Butamben 200MG/SPRAY (100SPY/BOT) MM ONE (10:39)
[2017-11-07] MEDS ORDERED: *HR* Midazolam HCl 5 MG/5 ML VIAL IVP PRN (10:39)
[2017-11-07] MEDS ORDERED: 0.9 % Sodium Chloride 500 ML IVC ONE (10:39)
--- NOTE | 2017-11-07 11:45 | Infectious Disease Progress No ---
Date of Encounter: 11/07/17 Time of Encounter: 11:42 - Assessment and Plan (1) Sepsis Current Visit: Yes Status: Resolved The patient had two SIRS criteria on admission. Likely secondary to bacteremia and right knee infection. Improved. Afebrile. Tachycardia has resolved. Blood cultures drawn 10/29/17 are positive 2/2 sets for MRSA. Repeat blood cultures drawn 10/30/17 are negative 2/2 sets, 10/31/17 are negative x 2 sets, and 11/01/17 are negative x 1 set. Qualifiers: Sepsis type: methicillin resistant Staphylococcus aureus Qualified Code(s) : A41.02 - Sepsis due to Methicillin resistant Staphylococcus aureus (2) Bacteremia Current Visit: Yes Status: Acute Causative organism: MRSA. 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 Complicated due to presence of right knee hardware. Blood cultures drawn 10/29/17 are positive 2/2 sets for MRSA. Repeat blood cultures drawn 10/30/17 are negative 2/2 sets, 10/31/17 are negative x 2 sets, and 11/01/17 are negative x 1 set. X-ray of the right knee showed persistent anterior skin swelling and a small suprapatellar joint effusion. ESR 86, CRP 288 No endocarditis stigmata noted on exam. She has one major and one minor Modified De La Cruz's Criteria. TTE was negative. Will need EVER prior to discharge. Scheduled for this morning. Continue Vancomycin IV. Pharmacy to dose. Goal trough ~15. Vanc trough 17.5. Duration of treatment depends on the clinical picture, but likely 6 weeks due to the complicated nature of the infection and the PJI. Monitor renal function and for drug toxicity and dose-adjust antibiotics. Continue contact precautions per protocol. (3) Prosthetic joint infection Current Visit: Yes Status: Acute Location: Right knee. Causative organism: MRSA Likely secondary to recent surgical procedure. Acute onset. Status post bedside aspiration 10/31/17 that yielded 2ml of bloody fluid that is culture positive for MRSA. Ortho consulted. Status post I & D of the right knee 11/02/[address] Luong. Operative note reviewed. Serosanguinous drainage noted intra-op. Cultures obtained and are positive for MRSA as well. Continue antibiotics as above. Will add rifampin 300mg PO BID at discharge. Baseline LFTs normal. Wound care and activity restrictions per the ortho team. municipal services manager to assist with discharge planning. Awaiting insurance authorization for ECF placement. Will need 6 weeks of IV antibiotics. Will need weekly CBC, BUN/Cr, ESR, CRP, LFTs, and Vanc trough. Will need weekly PICC care per protocol. Follow up with ID 11/20/17 at 0940. Qualifiers: Encounter type: subsequent encounter Qualified Code(s): T84.50XD - Infection and inflammatory reaction due to unspecified internal joint prosthesis , subsequent encounter (4) UTI (urinary tract infection) Current Visit: Yes Status: Resolved Causative organism: E. coli. Symptoms have resolved. Completed 5 days of treatment. Qualifiers: Urinary tract infection type: acute cystitis Hematuria presence: without hematuria Qualified Code(s): N30.00 - Acute cystitis without hematuria (5) Anemia Current Visit: Yes Status: Chronic Etiology unclear. FOBT negative. Further evaluation and treatment per the primary team. Qualifiers: Anemia type: unspecified type Qualified Code(s): D64.9 - Anemia, unspecified (6) Status post total right knee replacement Current Visit: Yes Status: Chronic Status post right total knee replacement 10/13/[address] Luong. (7) Morbid obesity with BMI of 40.0-44.9, adult Current Visit: No Status: Chronic (8) Multiple sclerosis Current Visit: No Status: Chronic - Subjective Interval history: Patient seen and examined. No acute events noted overnight. Patient sitting up in bed. Complains of knee pain 9/10. Denies fevers, chills, or rigors. Denies chest pain, shortness of breath, or cough. Denies nausea or vomiting. States her appetite is better and she is hungry this morning, but is currently NPO for EVER later this morning. Denies abdominal pain or urinary complaints. Reports diarrhea has resolved. Denies oral thrush or skin lesions. Infect Dis PN-Objective Data - Labs CBC & Chem 7: 11/05/17 07:30 11/08/17 08:04 Labs: Laboratory Results - last 24 hr 11/06/17 11/07/17 11:45 04:00 Magnesium 1.7 Total Bilirubin 0.5 Direct Bilirubin 0.1 Indirect Bilirubin 0.4 AST 9 L ALT 13 Alkaline Phosphatase 125 H Serum Total Protein 5.5 L Albumin 3.1 L Globulin 2.4 Albumin/Globulin Ratio 1.3 Cultures: Cultures 10/31/17 16:58 Anaerobic Culture - Final Right Knee No anaerobes were recovered. 11/01/17 05:19 Blood Culture - Final Peripheral Venipuncture No growth. 10/31/17 20:31 Blood Culture - Final Peripheral Venipuncture No growth. 10/31/17 20:35 Blood Culture - Final Peripheral Venipuncture No growth. 10/30/17 20:38 Blood Culture - Final Peripheral Venipuncture No growth. 10/30/17 20:38 Blood Culture - Final Peripheral Venipuncture No growth. 11/02/17 15:55 Anaerobic Culture - Preliminary Right Knee At this time, no anaerobic growth is present. The culture will be finalized after 5 days of incubation. 11/02/17 15:55 Wound Culture - Final Right Knee Methicillin Resistant S.aureus 10/31/17 16:58 Body Fluid Culture - Final Synovial Fluid Methicillin Resistant S.aureus 10/31/17 16:58 Gram Stain - Final Right Knee Exam - Constitutional Vitals: Temp Pulse Resp BP Pulse Ox 97.2 F L 87 18 143/79 93 11/07/17 10:54 11/07/17 10:54 11/07/17 10:54 11/07/17 10:54 11/07/17 10:54 General appearance: cooperative, no acute distress, obese - Head Head exam: Present: atraumatic, normal inspection, normocephalic - Eye Eye exam: Present: EOMI, normal appearance, PERRL Pupils: Present: normal accommodation Additional comments: No subconjunctival hemorrhage noted. - ENT ENT exam: Present: mucous membranes moist - Neck Neck exam: Present: normal inspection - Respiratory Respiratory exam: Present: CTAB. Absent: rales, respiratory distress, rhonchi, wheezes - Cardiovascular Cardiovascular exam: Present: RRR, +S1, +S2 - GI/Abdominal GI/Abdominal exam: Present: normal bowel sounds, soft. Absent: distended, tenderness - Extremities Exam Extremities exam: Present: pedal edema (1+ BLE) Additional comments: Right knee dressing and splint C/D/I. - Neurological Exam Neurological exam: Present: alert, oriented X3, no focal deficits - Psychiatric Psychiatric exam: Present: normal affect, normal mood - Skin Skin exam: Present: dry, intact, normal color, warm - VTE Documentation of Mechanical Device: Venous foot pump, device Consult Discharge Plan - Plan Referrals: Johnie Farley MD [Primary Care Provider] - Anne Hanson CNP [Advanced Practice Nurse] - 11/20/17 9:40 am Prescriptions: Rifampin [Rifadin] 300 mg PO BID #84 capsule - Attending Attestation I examined this patient and my medical decision-making was reviewed with the Resident Physician. I agree with the documented findings, disposition and treatment plan as described except to the extent set forth below.
[2017-11-07] MEDS: Ibuprofen 600 MG TABLET PO PRN (14:46)
[2017-11-07] MEDS: Nystatin POWDER 30 GM BOTTLE TP SCH ×2 (14:47→22:08)
--- NOTE | 2017-11-07 15:40 | Internal Med Progress Note ---
<Martina Valenciad - Last Filed: 11/07/17 17:29> Date of Encounter: 11/07/17 Time of Encounter: 17:26 - Assessment and plan (1) Prosthetic joint infection Current Visit: Yes Status: Acute Assessment and plan: Vancomycin day 9. Patient has normal transesophageal echocardiogram. No evidence of any valvular vegetations or any other evidence of endocarditis. Patient awaiting insurance approval for intravenous vancomycin as she needs it for 4-6 weeks. See event note for more information. Qualifiers: Encounter type: initial encounter Qualified Code(s): T84.50XA - Infection and inflammatory reaction due to unspecified internal joint prosthesis, initial encounter (2) Bacteremia Current Visit: Yes Status: Acute Assessment and plan: See above (3) Sepsis Current Visit: Yes Status: Acute Assessment and plan: See above Qualifiers: Sepsis type: methicillin resistant Staphylococcus aureus Qualified Code(s) : A41.02 - Sepsis due to Methicillin resistant Staphylococcus aureus (4) Anemia Current Visit: Yes Status: Chronic Assessment and plan: Patient currently hemodynamically stable. Not reporting any bleeding. Qualifiers: Anemia type: unspecified type Qualified Code(s): D64.9 - Anemia, unspecified (5) Multiple sclerosis Current Visit: No Status: Chronic (6) Status post total right knee replacement Current Visit: Yes Status: Chronic (7) Morbid obesity with BMI of 40.0-44.9, adult Current Visit: No Status: Chronic - Subjective Interval history: Patient having no complaints today. Not complaining of any shortness of breath , diarrhea, nausea, vomiting, blood in stool. Transesophageal echocardiogram reveals no evidence of endocarditis. - Constitutional Vitals: Temp Pulse Resp BP Pulse Ox 99.1 F 102 20 120/78 93 11/07/17 15:17 11/07/17 15:17 11/07/17 15:17 11/07/17 15:17 11/07/17 15:17 General appearance: Present: cooperative, A&O X 3, morbidly obese, pleasant, answers questions appropriately - Head Head exam: Present: atraumatic, normocephalic - Respiratory Respiratory exam: Present: rhonchi - Cardiovascular Cardiovascular exam: Present: RRR. Absent: JVD - GI/Abdominal GI/Abdominal exam: Present: soft. Absent: guarding, rebound - Extremities Exam Extremities exam: Absent: calf tenderness Internal Medicine: Result - Labs CBC & Chem 7: 11/05/17 07:30 11/05/17 07:30 - VTE Documentation of Mechanical Device: Venous foot pump, device Consult Discharge Plan - Plan Referrals: Johnie Farley MD [Primary Care Provider] - Anne Hanson CNP [Advanced Practice Nurse] - 11/20/17 9:40 am <Colt Collado Libby - Last Filed: 11/07/17 19:20> Date of Encounter: 11/07/17 - Assessment and plan (1) Sepsis Current Visit: Yes Status: Resolved Qualifiers: Sepsis type: methicillin resistant Staphylococcus aureus Qualified Code(s) : A41.02 - Sepsis due to Methicillin resistant Staphylococcus aureus (2) MRSA bacteremia Current Visit: Yes Status: Acute (3) Prosthetic joint infection Current Visit: Yes Status: Acute Qualifiers: Encounter type: subsequent encounter Qualified Code(s): T84.50XD - Infection and inflammatory reaction due to unspecified internal joint prosthesis , subsequent encounter (4) Anemia Current Visit: Yes Status: Chronic Qualifiers: Anemia type: unspecified type Qualified Code(s): D64.9 - Anemia, unspecified (5) Multiple sclerosis Current Visit: No Status: Chronic (6) Obstructive sleep apnea Current Visit: No Status: Chronic (7) Morbid obesity with BMI of 45.0-49.9, adult Current Visit: Yes Status: Chronic - Constitutional Vitals: Temp Pulse Resp BP Pulse Ox 98.5 F 81 18 128/80 95 11/07/17 18:25 11/07/17 18:25 11/07/17 18:25 11/07/17 18:25 11/07/17 18:25 Internal Medicine: Result - Labs CBC & Chem 7: 11/05/17 07:30 11/05/17 07:30 - Attending Attestation I examined this patient and my medical decision-making was reviewed with the Resident Physician on 11/07/17. I agree with the documented findings, disposition and treatment plan as described except to the extent set forth below. Ms Copeland is currently admitted for acute MRSA bacteremia and prosthetic joint infection. She is on IV Vancomycin. She remains moderate to high risk due to potential for worsening clinical status. Ms Copeland is doing OK. She is to have EVER today. Insurance has denied SNF admit - see event note. No fever or chills. No cough. No GI issues. Exam alert Comfortable Mucus membranes dry Heart reg No wheeze I/P 1. Sepsis due to MRSA 2. Prosthetic joint infection Further diagnoses and plan as above.
--- NOTE | 2017-11-07 15:59 | Event Note ---
Date of Encounter: 11/07/17 Time of Encounter: 13:30 I called [employer] regarding denial for SNF services. I chose the expedited route. I spoke to the insurance for greater than 30minutes. I gave all the information again including her need for SNF rehab and IV abx. The case ID is: [id number] I was told we will know something within 72 hours.
--- NOTE | 2017-11-07 18:13 | Orthopedics Progress Note ---
Date of Encounter: 11/07/17 Time of Encounter: 12:50 - Assessment and Plan (1) Prosthetic joint infection Current Visit: Yes Status: Acute S/p R TKR 10/13/17 and I&D jamie exchange right knee 11/02/17 NO KNEE MOTION. WBAT in permanent splint. IV Vanc per ID x 6 weeks planned. Patient awaiting auth to [facility]. Will continue to follow. Qualifiers: Encounter type: subsequent encounter Qualified Code(s): T84.50XD - Infection and inflammatory reaction due to unspecified internal joint prosthesis , subsequent encounter (2) Status post total right knee replacement Current Visit: Yes Status: Chronic (3) Knee contusion Current Visit: Yes Status: Acute Qualifiers: Encounter type: subsequent encounter Laterality: right Qualified Code(s) : S80.01XD - Contusion of right knee, subsequent encounter Subjective Principal diagnosis: Left infected total knee arthroplasty Interval history: Ms. Copeland is a 57 year old female well known to [facility] having a right knee chronic dislocation failing conservative treatment and ultimately requiring right total knee replacement to restore stability and function to the knee on . Patient has been seen by this provider several times since her knee replacement in outpatient setting. Patient was to be wearing knee TROM brace in locked extension with no knee motion however patient has been non compliant with this and admits to falling several times since her replacement. She presented to [facility] ED per patient secondary to continued knee incision drainage however per record was secondary to a fall and was admitted for UTI with developing sepsis. Subsequently patient has had confirmed MRSA culture to the right knee joint and underwent I&D jamie exchange by Dr. Luong on 11/02/17 with findings of: Disruption of extensor mechanism secondary to trauma patient had multiple falls since surgery patient with a history of MRSA UTI cultures positive for MRSA no gross pus serosanguineous fluid. Patient was placed in splint to improve compliance with no knee motion. Patient seen today resting comfortably in chair. Patient eating lunch upon entering. Patient alert and oriented to person and place but not time. Patient did recognize this provider this time today. Casted splint in place and patient states it is comfortable. Neurovascularly intact to bilateral lower extremities. S/p R TKR 10/13/17 and I&D jamie exchange right knee 11/02/17 NO KNEE MOTION Splint to be left in place until follow up with [facility] next week. Educated patient will need to be in splint for prolonged period of time WBAT in permanent splint. IV ABx IV Vancomycin x 6 weeks per ID - patient educated of importance of these antibiotics and that she get them as scheduled. Patient awaiting auth to [facility]. [id number] required per patient's insurance. Will continue to follow. Objective Vital signs: Vital Signs Temp Pulse Resp BP Pulse Ox 11/07/17 15:17 99.1 F 102 20 120/78 93 11/07/17 12:14 97.8 F 88 16 135/83 99 11/07/17 10:54 97.2 F L 87 18 143/79 93 11/07/17 07:23 16 97 11/07/17 06:30 98.5 F 87 18 96/65 94 11/07/17 05:43 97.8 F 80 18 115/68 94 11/06/17 22:42 98.4 F 80 18 107/67 94 11/06/17 20:03 16 96 11/06/17 19:36 98.8 F 87 18 155/90 95 Intake and Output 11/07/17 11/07/17 11/07/17 07:59 15:59 23:59 Intake Total 330 / 330 Output Total 0 / 0 250 / 250 400 / 400 Balance 0 / 0 80 / 80 -400 / -400 Intake: IV Fluids 90 / 90 0.9 % Sodium Chloride 500 ML @ 90 / 90 150 mls/hr IVC .Q3H20M ONE Rx#: [id number] Oral 240 / 240 Output: Urine 0 / 0 250 / 250 400 / 400 Other: Meal Lunch Percent of Meal Consumed 100% Stool Size Moderate Stool Consistency soft formed Stool Characteristics Normal for Patient Stool Color Brown # Voids 1 1 Weight 111.584 kg Patient Weight 11/07/17 23:59 Weight 111.584 kg - Labs CBC & BMP: 11/05/17 07:30 11/05/17 07:30 Labs: Abnormal lab results RBC 3.03 M/mcL (3.82-4.97) L 11/05/17 07:30 Hgb 8.7 g/dL (11.5-15.4) L 11/05/17 07:30 Hct 27.0 % (35.3-44.9) L 11/05/17 07:30 RDW 15.5 % (11.5-14.5) H 11/05/17 07:30 ESR 86 mm/hr (0-15) H 10/29/17 17:16 Carbon Dioxide 31 mEq/L (23-29) H 11/05/17 07:30 Calcium 8.3 mg/dL (8.6-10.3) L 11/05/17 07:30 Iron < 10 mcg/dL (50-170) L 10/30/17 01:17 Transferrin 169 mg/dL (203-362) L 10/30/17 01:17 Ferritin 647 ng/ml (10-120) H 10/30/17 01:17 AST 9 Units/L (13-39) L 11/06/17 11:45 Alkaline Phosphatase 125 Units/L (34-104) H 11/06/17 11:45 C-Reactive Protein 288 mg/L (Less than 10) H 10/29/17 17:16 Serum Total Protein 5.5 g/dL (6.4-8.9) L 11/06/17 11:45 Albumin 3.1 g/dL (3.5-5.7) L 11/06/17 11:45 Vitamin B12 166 pg/mL (250-1100) L 10/30/17 01:17 Urine Clarity Cloudy (Clear) A 10/29/17 17:00 Ur Specific [place] 1.009 (1.010-1.025) L 10/29/17 17:00 Urine Nitrite Positive (Negative) A 10/29/17 17:00 Ur Leukocyte Esterase Large (Negative) H 10/29/17 17:00 Urine Microscopic WBC 50-100 per hpf (0-3) H 10/29/17 17:00 Ur Squamous Epith Cells Many per lpf (None-Few) H 10/29/17 17:00 Urine Bacteria Many per hpf (None-Few) H 10/29/17 17:00 Staphylococcus sp PCR DETECTED (Not Detect) A 10/29/17 17:16 Staph aureus (PCR) DETECTED (Not Detect) A 10/29/17 17:16 mecA-Methicil Res Gene DETECTED (Not Detect) A 10/29/17 17:16 Antibody Screen POSITIVE A 10/30/17 03:18 - VTE Documentation of Mechanical Device: Venous foot pump, device Consult Discharge Plan - Plan Referrals: Johnie Farley MD [Primary Care Provider] - Anne Hanson CNP [Advanced Practice Nurse] - 11/20/17 9:40 am
[2017-11-07] MEDS: Melatonin 3 MG TABLET PO SCH (22:07)
[2017-11-08] MEDS: *HR* Enoxaparin 40 MG/0.4 ML SYRINGE SQ SCH (06:11)
[2017-11-08] MEDS: BuPROPion SR (12 HR) 150 MG TABLET PO SCH ×2 (07:44→20:46)
[2017-11-08] MEDS: Magnesium Oxide 400 MG TABLET PO SCH ×2 (07:44→20:46)
[2017-11-08] MEDS: Nystatin POWDER 30 GM BOTTLE TP SCH ×2 (07:45→20:52)
[2017-11-08] MEDS: Furosemide 20 MG TABLET PO SCH (07:45)
[2017-11-08] MEDS: Famotidine 20 MG TABLET PO SCH (07:45)
[2017-11-08] MEDS: Mirabegron [Myrbetriq] 50 MG PO SCH (07:45)
[2017-11-08] MEDS: Gabapentin 300 MG CAPSULE PO SCH ×3 (07:45→20:45)
[2017-11-08] MEDS: Beclomethasone 80mcg MDI IH SCH ×2 (08:21→20:21)
[2017-11-08] MEDS: *HR* OxyCODONE Immed Rel 5 MG TABLET PO PRN ×2 (09:40→15:39)
--- NOTE | 2017-11-08 10:07 | Infectious Disease Progress No ---
Date of Encounter: 11/08/17 Time of Encounter: 10:07 - Assessment and Plan (1) Sepsis Current Visit: Yes Status: Resolved The patient had two SIRS criteria on admission. Likely secondary to bacteremia and right knee infection. Improved. Afebrile. Tachycardia has resolved. Blood cultures drawn 10/29/17 are positive 2/2 sets for MRSA. Repeat blood cultures drawn 10/30/17 are negative 2/2 sets, 10/31/17 are negative x 2 sets, and 11/01/17 are negative x 1 set. Qualifiers: Sepsis type: methicillin resistant Staphylococcus aureus Qualified Code(s) : A41.02 - Sepsis due to Methicillin resistant Staphylococcus aureus (2) Bacteremia Current Visit: Yes Status: Acute Causative organism: MRSA. 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 Complicated due to presence of right knee hardware. Blood cultures drawn 10/29/17 are positive 2/2 sets for MRSA. Repeat blood cultures drawn 10/30/17 are negative 2/2 sets, 10/31/17 are negative x 2 sets, and 11/01/17 are negative x 1 set. X-ray of the right knee showed persistent anterior skin swelling and a small suprapatellar joint effusion. ESR 86, CRP 288 No endocarditis stigmata noted on exam. She has one major and one minor Modified De La Cruz's Criteria. TTE was negative. EVER negative. Continue Vancomycin IV. Pharmacy to dose. Goal trough ~15. Vanc trough 16.8 this morning. Duration of treatment depends on the clinical picture, but likely 6 weeks due to the complicated nature of the infection and the PJI. Monitor renal function and for drug toxicity and dose-adjust antibiotics. Continue contact precautions per protocol. (3) Prosthetic joint infection Current Visit: Yes Status: Acute Location: Right knee. Causative organism: MRSA Likely secondary to recent surgical procedure. Acute onset. Status post bedside aspiration 10/31/17 that yielded 2ml of bloody fluid that is culture positive for MRSA. Ortho consulted. Status post I & D of the right knee 11/02/[address] Luong. Operative note reviewed. Serosanguinous drainage noted intra-op. Cultures obtained and are positive for MRSA as well. Continue antibiotics as above. Will add rifampin 300mg PO BID at discharge. Baseline LFTs normal. Rx printed and placed in the patient's discharge folder. Wound care and activity restrictions per the ortho team. director water and waste services to assist with discharge planning. Awaiting insurance authorization for ECF placement. Will need 6 weeks of IV antibiotics. Will need weekly CBC, BUN/Cr, ESR, CRP, LFTs, and Vanc trough. Will need weekly PICC care per protocol. Follow up with ID 11/20/17 at 0940. Qualifiers: Encounter type: subsequent encounter Qualified Code(s): T84.50XD - Infection and inflammatory reaction due to unspecified internal joint prosthesis , subsequent encounter (4) UTI (urinary tract infection) Current Visit: Yes Status: Resolved Causative organism: E. coli. Symptoms have resolved. Completed 5 days of treatment. Qualifiers: Urinary tract infection type: acute cystitis Hematuria presence: without hematuria Qualified Code(s): N30.00 - Acute cystitis without hematuria (5) Anemia Current Visit: Yes Status: Chronic Etiology unclear. FOBT negative. Further evaluation and treatment per the primary team. Qualifiers: Anemia type: unspecified type Qualified Code(s): D64.9 - Anemia, unspecified (6) Status post total right knee replacement Current Visit: Yes Status: Chronic Status post right total knee replacement 10/13/[address] Luong. (7) Morbid obesity with BMI of 40.0-44.9, adult Current Visit: No Status: Chronic (8) Multiple sclerosis Current Visit: No Status: Chronic - Subjective Interval history: Patient seen and examined. No acute events noted overnight. Patient sitting up in the bedside chair. Complains of knee pain since she just got up and worked with physical therapy. Denies fevers, chills, or rigors. Denies chest pain, shortness of breath, or cough. Denies nausea or vomiting. States her appetite is good. Denies abdominal pain or urinary complaints. Reports diarrhea has resolved. Denies oral thrush or skin lesions. Infect Dis PN-Objective Data - Labs CBC & Chem 7: 11/05/17 07:30 11/08/17 08:04 Labs: Laboratory Results - last 24 hr 11/07/17 14:53 Vancomycin Trough 16.8 Cultures: Cultures 11/02/17 15:55 Anaerobic Culture - Final Right Knee No anaerobes were recovered. 10/31/17 16:58 Anaerobic Culture - Final Right Knee No anaerobes were recovered. 11/01/17 05:19 Blood Culture - Final Peripheral Venipuncture No growth. 10/31/17 20:31 Blood Culture - Final Peripheral Venipuncture No growth. 10/31/17 20:35 Blood Culture - Final Peripheral Venipuncture No growth. 10/30/17 20:38 Blood Culture - Final Peripheral Venipuncture No growth. 10/30/17 20:38 Blood Culture - Final Peripheral Venipuncture No growth. 11/02/17 15:55 Wound Culture - Final Right Knee Methicillin Resistant S.aureus 10/31/17 16:58 Body Fluid Culture - Final Synovial Fluid Methicillin Resistant S.aureus 10/31/17 16:58 Gram Stain - Final Right Knee Exam - Constitutional Vitals: Temp Pulse Resp BP Pulse Ox 98.5 F 94 16 107/64 98 11/08/17 06:45 11/08/17 06:45 11/08/17 08:22 11/08/17 06:45 11/08/17 08:22 General appearance: cooperative, no acute distress, obese - Head Head exam: Present: atraumatic, normal inspection, normocephalic - Eye Eye exam: Present: EOMI, normal appearance, PERRL Pupils: Present: normal accommodation Additional comments: No subconjunctival hemorrhage noted. - ENT ENT exam: Present: mucous membranes moist - Neck Neck exam: Present: normal inspection - Respiratory Respiratory exam: Present: CTAB. Absent: rales, respiratory distress, rhonchi, wheezes - Cardiovascular Cardiovascular exam: Present: RRR, +S1, +S2 - GI/Abdominal GI/Abdominal exam: Present: distended (obese), normal bowel sounds, soft. Absent: tenderness - Extremities Exam Extremities exam: Present: pedal edema (1+ BLE), tenderness (right knee) Additional comments: Right knee dressing and brace C/D/I. ROM not assessed per ortho orders. - Neurological Exam Neurological exam: Present: alert, oriented X3, no focal deficits - Psychiatric Psychiatric exam: Present: normal affect, normal mood - Skin Skin exam: Present: dry, intact, normal color, warm Additional comments: No endocarditis stigmata noted. - VTE Documentation of Mechanical Device: Venous foot pump, device Consult Discharge Plan - Plan Referrals: Johnie Farley MD [Primary Care Provider] - Anne Hanson CNP [Advanced Practice Nurse] - 11/20/17 9:40 am Prescriptions: Rifampin [Rifadin] 300 mg PO BID #84 capsule - Attending Attestation I examined this patient and my medical decision-making was reviewed with the Resident Physician. I agree with the documented findings, disposition and treatment plan as described except to the extent set forth below.
[2017-11-08 10:17] LABS: eGFR For African Americans > 60 (> 60); eGFR For Non-African Americans 59 (> 60)
--- NOTE | 2017-11-08 16:21 | Internal Med Progress Note ---
<Martina Valenciad - Last Filed: 11/08/17 17:01> Date of Encounter: 11/08/17 Time of Encounter: 16:20 - Assessment and plan (1) Prosthetic joint infection Current Visit: Yes Status: Acute Assessment and plan: Vancomycin day 10. Patient has normal transesophageal echocardiogram. No evidence of any valvular vegetations or any other evidence of endocarditis. Patient awaiting insurance approval for intravenous vancomycin as she needs it for 4-6 weeks. Qualifiers: Encounter type: subsequent encounter Qualified Code(s): T84.50XD - Infection and inflammatory reaction due to unspecified internal joint prosthesis , subsequent encounter (2) Bacteremia Current Visit: Yes Status: Acute Assessment and plan: see above (3) Sepsis Current Visit: Yes Status: Resolved Assessment and plan: see above Qualifiers: Sepsis type: methicillin resistant Staphylococcus aureus Qualified Code(s) : A41.02 - Sepsis due to Methicillin resistant Staphylococcus aureus (4) Anemia Current Visit: Yes Status: Chronic Assessment and plan: see above, patient reporting no blood in stools, from surgical site. Hemodynamically stable. Qualifiers: Anemia type: unspecified type Qualified Code(s): D64.9 - Anemia, unspecified (5) Multiple sclerosis Current Visit: No Status: Chronic (6) Status post total right knee replacement Current Visit: Yes Status: Chronic (7) Morbid obesity with BMI of 40.0-44.9, adult Current Visit: No Status: Chronic - Subjective Interval history: Patient having no complaints today. Not complaining of any shortness of breath , diarrhea, nausea, vomiting, blood in stool. Transesophageal echocardiogram revealed no evidence of infective endocarditis. Patient awaiting approval for ECF for IV vancomycin for 4-6 weeks. - Constitutional Vitals: Temp Pulse Resp BP Pulse Ox 98.3 F 87 16 111/68 99 11/08/17 11:19 11/08/17 11:19 11/08/17 11:19 11/08/17 11:19 11/08/17 11:19 General appearance: Present: cooperative, A&O X 3, morbidly obese, pleasant, answers questions appropriately - Head Head exam: Present: atraumatic - ENT ENT exam: Present: normal exam - Neck Neck exam general surgery: Present: full ROM, normal inspection - Respiratory Respiratory exam: Present: rhonchi. Absent: respiratory distress - Cardiovascular Cardiovascular exam: Present: RRR. Absent: diastolic murmur, systolic murmur - GI/Abdominal GI/Abdominal exam: Present: no peritoneal signs. Absent: firm, guarding, rebound, tenderness - Neurological Exam Neurological exam: Present: CN II-XII intact, oriented X3 - Psychiatric Psychiatric exam: Present: normal affect, normal mood Internal Medicine: Result - Labs CBC & Chem 7: 11/05/17 07:30 11/08/17 08:04 Labs: BMP 11/08/17 08:04 Creatinine 0.97 - VTE Documentation of Mechanical Device: Venous foot pump, device Consult Discharge Plan - Plan Referrals: Johnie Farley MD [Primary Care Provider] - Anne Hanson CNP [Advanced Practice Nurse] - 11/20/17 9:40 am Prescriptions: Rifampin [Rifadin] 300 mg PO BID #84 capsule <Colt Collado - Last Filed: 11/08/17 17:25> Date of Encounter: 11/08/17 - Assessment and plan (1) Sepsis Current Visit: Yes Status: Resolved Qualifiers: Sepsis type: methicillin resistant Staphylococcus aureus Qualified Code(s) : A41.02 - Sepsis due to Methicillin resistant Staphylococcus aureus (2) MRSA bacteremia Current Visit: Yes Status: Acute (3) Prosthetic joint infection Current Visit: Yes Status: Acute Qualifiers: Encounter type: subsequent encounter Qualified Code(s): T84.50XD - Infection and inflammatory reaction due to unspecified internal joint prosthesis , subsequent encounter (4) Anemia Current Visit: Yes Status: Chronic Qualifiers: Anemia type: unspecified type Qualified Code(s): D64.9 - Anemia, unspecified (5) Multiple sclerosis Current Visit: No Status: Chronic (6) Obstructive sleep apnea Current Visit: No Status: Chronic (7) Morbid obesity with BMI of 45.0-49.9, adult Current Visit: Yes Status: Chronic - Constitutional Vitals: Temp Pulse Resp BP Pulse Ox 98.1 F 94 16 118/57 97 11/08/17 15:00 11/08/17 15:00 11/08/17 15:00 11/08/17 15:00 11/08/17 15:00 Internal Medicine: Result - Labs CBC & Chem 7: 11/05/17 07:30 11/08/17 08:04 Labs: BMP 11/08/17 08:04 Creatinine 0.97 - Attending Attestation I examined this patient and my medical decision-making was reviewed with the Resident Physician on 11/08/17. I agree with the documented findings, disposition and treatment plan as described except to the extent set forth below. Ms Copeland is currently admitted for MRSA bacteremia and septic joint. She remains moderate to high risk due to potential for worsening clinical status. Ms Copelnad feels OK. No fever. Currently tolerating IV abx. Pain is OK at this time. No GI issues. Awaiting insurance appeal for rehab/SNF. Exam alert Comfortable Mucus membranes dry Heart not tachy Lungs clear Abd soft I/P 1. Sepsis resolved 2. MRSA joint infection and bacteremia Further diagnoses and plan as above.
[2017-11-08] MEDS: Ibuprofen 600 MG TABLET PO PRN (17:42)
--- NOTE | 2017-11-08 17:55 | Orthopedics Progress Note ---
Date of Encounter: 11/08/17 Time of Encounter: 11:45 - Assessment and Plan (1) Prosthetic joint infection Current Visit: Yes Status: Acute NO KNEE MOTION Splint to be left in place until follow up with [facility] next week. Educated patient will need to be in splint for prolonged period of time WBAT in permanent splint. IV ABx IV Vancomycin x 6 weeks per ID - patient educated of importance of these antibiotics and that she get them as scheduled. Patient awaiting auth to [employer]. [id number] required per patient's insurance - completed by Dr. Collado. Will continue to follow - patient to be seen outpatient at [facility] once discharged 11/14 at 0900 Qualifiers: Encounter type: subsequent encounter Qualified Code(s): T84.50XD - Infection and inflammatory reaction due to unspecified internal joint prosthesis , subsequent encounter (2) Status post total right knee replacement Current Visit: Yes Status: Chronic (3) Knee contusion Current Visit: Yes Status: Acute Qualifiers: Encounter type: subsequent encounter Laterality: right Qualified Code(s) : S80.01XD - Contusion of right knee, subsequent encounter Subjective Principal diagnosis: Left infected total knee arthroplasty Interval history: Ms. Copeland is a 57 year old female well known to [facility] having a right knee chronic dislocation failing conservative treatment and ultimately requiring right total knee replacement to restore stability and function to the knee on . Patient has been seen by this provider several times since her knee replacement in outpatient setting. Patient was to be wearing knee TROM brace in locked extension with no knee motion however patient has been non compliant with this and admits to falling several times since her replacement. She presented to [facility] ED per patient secondary to continued knee incision drainage however per record was secondary to a fall and was admitted for UTI with developing sepsis. Subsequently patient has had confirmed MRSA culture to the right knee joint and underwent I&D jamie exchange by Dr. Luong on 11/02/17 with findings of: Disruption of extensor mechanism secondary to trauma patient had multiple falls since surgery patient with a history of MRSA UTI cultures positive for MRSA no gross pus serosanguineous fluid. Patient was placed in splint to improve compliance with no knee motion. Patient seen today resting comfortably in chair. Patient alert and oriented to person and place but not time. Patient did recognize this provider today. Casted splint in place and patient states it is comfortable. Neurovascularly intact to bilateral lower extremities. S/p R TKR 10/13/17 and I&D jamie exchange right knee 11/02/17 NO KNEE MOTION Splint to be left in place until follow up with [facility] next week. Educated patient will need to be in splint for prolonged period of time WBAT in permanent splint. IV ABx IV Vancomycin x 6 weeks per ID - patient educated of importance of these antibiotics and that she get them as scheduled. Patient awaiting auth to [employer]. [id number] required per patient's insurance - completed by Dr. Collado. Will continue to follow - patient to be seen outpatient at [facility] once discharged 11/14 at 0900 Objective Vital signs: Vital Signs Temp Pulse Resp BP Pulse Ox 11/08/17 15:00 98.1 F 94 16 118/57 97 11/08/17 11:19 98.3 F 87 16 111/68 99 11/08/17 08:22 16 98 11/08/17 06:45 98.5 F 94 16 107/64 98 11/08/17 05:01 98.3 F 89 16 104/71 96 11/08/17 00:13 97.9 F 79 18 102/68 93 11/07/17 20:40 20 92 11/07/17 18:25 98.5 F 81 18 128/80 95 Intake and Output 11/08/17 11/08/17 11/08/17 07:59 15:59 23:59 Intake Total 0 / 0 360 / 360 Output Total 750 / 750 1100 / 1100 Balance -750 / -750 -740 / -740 Intake: Oral 0 / 0 360 / 360 Output: Urine 750 / 750 1100 / 1100 Other: Meal Lunch Percent of Meal Consumed 60% Stool Size Moderate Stool Consistency soft formed Stool Characteristics Normal for Patient Stool Color Brown # Voids 1 # Bowel Movements 1 - Labs CBC & BMP: 11/05/17 07:30 11/08/17 08:04 Labs: Abnormal lab results RBC 3.03 M/mcL (3.82-4.97) L 11/05/17 07:30 Hgb 8.7 g/dL (11.5-15.4) L 11/05/17 07:30 Hct 27.0 % (35.3-44.9) L 11/05/17 07:30 RDW 15.5 % (11.5-14.5) H 11/05/17 07:30 ESR 86 mm/hr (0-15) H 10/29/17 17:16 Carbon Dioxide 31 mEq/L (23-29) H 11/05/17 07:30 Est GFR (Non-Af Amer) 59 (> 60) L 11/08/17 08:04 Calcium 8.3 mg/dL (8.6-10.3) L 11/05/17 07:30 Iron < 10 mcg/dL (50-170) L 10/30/17 01:17 Transferrin 169 mg/dL (203-362) L 10/30/17 01:17 Ferritin 647 ng/ml (10-120) H 10/30/17 01:17 AST 9 Units/L (13-39) L 11/06/17 11:45 Alkaline Phosphatase 125 Units/L (34-104) H 11/06/17 11:45 C-Reactive Protein 288 mg/L (Less than 10) H 10/29/17 17:16 Serum Total Protein 5.5 g/dL (6.4-8.9) L 11/06/17 11:45 Albumin 3.1 g/dL (3.5-5.7) L 11/06/17 11:45 Vitamin B12 166 pg/mL (250-1100) L 10/30/17 01:17 Urine Clarity Cloudy (Clear) A 10/29/17 17:00 Ur Specific [place] 1.009 (1.010-1.025) L 10/29/17 17:00 Urine Nitrite Positive (Negative) A 10/29/17 17:00 Ur Leukocyte Esterase Large (Negative) H 10/29/17 17:00 Urine Microscopic WBC 50-100 per hpf (0-3) H 10/29/17 17:00 Ur Squamous Epith Cells Many per lpf (None-Few) H 10/29/17 17:00 Urine Bacteria Many per hpf (None-Few) H 10/29/17 17:00 Staphylococcus sp PCR DETECTED (Not Detect) A 10/29/17 17:16 Staph aureus (PCR) DETECTED (Not Detect) A 10/29/17 17:16 mecA-Methicil Res Gene DETECTED (Not Detect) A 10/29/17 17:16 Antibody Screen POSITIVE A 10/30/17 03:18 - VTE Documentation of Mechanical Device: Venous foot pump, device Consult Discharge Plan - Plan Referrals: Johnie Farley MD [Primary Care Provider] - Anne Hanson CNP [Advanced Practice Nurse] - 11/20/17 9:40 am Dee Sellers, PAC [Physician Work Station Support Specialist] - 11/14/17 9:00 am Prescriptions: Rifampin [Rifadin] 300 mg PO BID #84 capsule
[2017-11-08] MEDS: Melatonin 3 MG TABLET PO SCH (20:45)
[2017-11-09] MEDS: *HR* Enoxaparin 40 MG/0.4 ML SYRINGE SQ SCH (06:11)
[2017-11-09 08:05] VITALS: BP 120/73
[2017-11-09] MEDS: Beclomethasone 80mcg MDI IH SCH (08:41)
[2017-11-09] MEDS: *HR* OxyCODONE Immed Rel 5 MG TABLET PO PRN (09:37)
[2017-11-09] MEDS: Famotidine 20 MG TABLET PO SCH (09:37)
[2017-11-09] MEDS: Gabapentin 300 MG CAPSULE PO SCH (09:37)
[2017-11-09] MEDS: Magnesium Oxide 400 MG TABLET PO SCH (09:37)
[2017-11-09] MEDS: BuPROPion SR (12 HR) 150 MG TABLET PO SCH (09:37)
[2017-11-09] MEDS: Furosemide 20 MG TABLET PO SCH (09:38)
[2017-11-09] MEDS: Mirabegron [Myrbetriq] 50 MG PO SCH (10:14)
--- NOTE | 2017-11-09 10:44 | Infectious Disease Progress No ---
Date of Encounter: 11/09/17 Time of Encounter: 10:42 - Assessment and Plan (1) Bacteremia Status: Acute Causative organism: MRSA. 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 Complicated due to presence of right knee hardware. Blood cultures drawn 10/29/17 are positive 2/2 sets for MRSA. Repeat blood cultures drawn 10/30/17 are negative 2/2 sets, 10/31/17 are negative x 2 sets, and 11/01/17 are negative x 1 set. No endocarditis stigmata noted on exam. She has one major and one minor Modified De La Cruz's Criteria. TTE was negative. EVER negative. Continue Vancomycin IV. Pharmacy to dose. Goal trough ~15. Vanc trough 16.8 11/08. Duration of treatment depends on the clinical picture, but likely 6 weeks due to the complicated nature of the infection and the PJI. Monitor renal function and for drug toxicity and dose-adjust antibiotics. Continue contact precautions per protocol. (2) Prosthetic joint infection Status: Acute Location: Right knee. Causative organism: MRSA Likely secondary to recent surgical procedure. Acute onset. Status post bedside aspiration 10/31/17 that yielded 2ml of bloody fluid that is culture positive for MRSA. Ortho consulted. Status post I & D of the right knee 11/02/[address] Luong. Operative note reviewed. Serosanguinous drainage noted intra-op. Cultures obtained and are positive for MRSA as well. Continue antibiotics as above. Will add rifampin 300mg PO BID at discharge. Baseline LFTs normal. Rx printed and placed in the patient's discharge folder. Wound care and activity restrictions per the ortho team. hvac services professional to assist with discharge planning. Awaiting insurance authorization for ECF placement. Will need 6 weeks of IV antibiotics. Will need weekly CBC, BUN/Cr, ESR, CRP, LFTs, and Vanc trough. Will need weekly PICC care per protocol. Follow up with ID 11/20/17 at 0940. Qualifiers: Encounter type: subsequent encounter Qualified Code(s): T84.50XD - Infection and inflammatory reaction due to unspecified internal joint prosthesis , subsequent encounter (3) Anemia Status: Chronic Etiology unclear. FOBT negative. Further evaluation and treatment per the primary team. Qualifiers: Anemia type: unspecified type Qualified Code(s): D64.9 - Anemia, unspecified (4) Status post total right knee replacement Status: Chronic Status post right total knee replacement 10/13/[address] Luong. (5) Morbid obesity with BMI of 40.0-44.9, adult Status: Chronic (6) Multiple sclerosis Status: Chronic - Subjective Interval history: Patient seen and examined. No acute events noted overnight. Patient sitting up in the bedside chair. Complains of knee pain 6/10 at this time. Denies fevers, chills, or rigors. Denies chest pain, shortness of breath, or cough. Denies nausea or vomiting. States her appetite is good. Denies abdominal pain or urinary complaints. Reports diarrhea has resolved. Denies oral thrush or skin lesions. Infect Dis PN-Objective Data - Labs CBC & Chem 7: 11/05/17 07:30 11/08/17 08:04 Cultures: Cultures 11/02/17 15:55 Anaerobic Culture - Final Right Knee No anaerobes were recovered. 10/31/17 16:58 Anaerobic Culture - Final Right Knee No anaerobes were recovered. 11/01/17 05:19 Blood Culture - Final Peripheral Venipuncture No growth. 10/31/17 20:31 Blood Culture - Final Peripheral Venipuncture No growth. 10/31/17 20:35 Blood Culture - Final Peripheral Venipuncture No growth. 10/30/17 20:38 Blood Culture - Final Peripheral Venipuncture No growth. 10/30/17 20:38 Blood Culture - Final Peripheral Venipuncture No growth. 11/02/17 15:55 Wound Culture - Final Right Knee Methicillin Resistant S.aureus 10/31/17 16:58 Body Fluid Culture - Final Synovial Fluid Methicillin Resistant S.aureus 10/31/17 16:58 Gram Stain - Final Right Knee Exam - Constitutional Vitals: Temp Pulse Resp BP Pulse Ox 98.0 F 88 20 120/73 97 11/09/17 07:51 11/09/17 07:51 11/09/17 07:51 11/09/17 07:51 11/09/17 07:51 General appearance: cooperative, no acute distress, obese - Head Head exam: Present: atraumatic, normal inspection, normocephalic - Eye Eye exam: Present: EOMI, normal appearance, PERRL Pupils: Present: normal accommodation - ENT ENT exam: Present: mucous membranes moist - Neck Neck exam: Present: normal inspection - Respiratory Respiratory exam: Present: CTAB. Absent: rales, respiratory distress, rhonchi, wheezes - Cardiovascular Cardiovascular exam: Present: RRR, +S1, +S2 - GI/Abdominal GI/Abdominal exam: Present: distended (obese), normal bowel sounds, soft. Absent: tenderness - Extremities Exam Extremities exam: Present: pedal edema (1+ BLE) Additional comments: Right knee dressing and splint C/D/I. - Neurological Exam Neurological exam: Present: alert, oriented X3, no focal deficits - Psychiatric Psychiatric exam: Present: normal affect, normal mood - Skin Skin exam: Present: dry, intact, normal color, warm - VTE Documentation of Mechanical Device: Venous foot pump, device Consult Discharge Plan - Plan Instructions: Sepsis (DC), Anemia (GEN) Additional Instructions: NO KNEE MOTION, DO NOT REMOVE IMMOBILIZER, DRESSING WILL BE CHANGED AT FOLLOW UP APPOINTMENT WITH [facility]. Follow-up with orthopedics by setting up an appointment with them for when they want to see you. Continue Vancomycin IV. Pharmacy to dose. Goal trough ~15. Vanc trough 16.8 11/08. Duration of treatment depends on the clinical picture. Monitor renal function and for drug toxicity and dose-adjust antibiotics. Will add rifampin 300mg PO BID at discharge. Baseline LFTs normal. Rx printed and placed in the patient's discharge folder. Wound care and activity restrictions per the ortho team. Will need 6 weeks (42 days) of IV antibiotics, currently on day 11. Will need weekly CBC, BUN/Cr, ESR, CRP, LFTs, and Vanc trough. Will need weekly PICC care per protocol. Follow up with ID 11/20/17 at 0940. Referrals: Dee Sellers PAC [Physician Seasoner Hand] - 11/14/17 9:00 am Johnie Farley MD [Primary Care Provider] - Anne Hanson CNP [Advanced Practice Nurse] - 11/20/17 9:40 am Prescriptions: OxyCODONE Immed Rel [Roxicodone 5 MG] 5 mg PO Q6-8H PRN 5 Days #20 tablet PRN Reason: Severe Pain Rifampin [Rifadin] 300 mg PO BID #84 capsule - Attending Attestation I examined this patient and my medical decision-making was reviewed with the Resident Physician. I agree with the documented findings, disposition and treatment plan as described except to the extent set forth below.
--- NOTE | 2017-11-09 10:47 | Discharge Summary ---
<Aamir Valencia - Last Filed: 11/09/17 13:19> Date of Encounter: 11/09/17 Time of Encounter: 10:43 - Discharge Diagnosis (1) Prosthetic joint infection Priority: Primary Status: Acute (2) Bacteremia Priority: Primary Status: Acute (3) Sepsis Priority: Primary Status: Resolved (4) Anemia Priority: Secondary Status: Chronic (5) Multiple sclerosis Priority: Secondary Status: Chronic (6) Status post total right knee replacement Priority: Secondary Status: Chronic (7) Morbid obesity with BMI of 40.0-44.9, adult Priority: Secondary Status: Chronic Hospital course: Ms. Copeland is a 57 year old female with right knee replacement presented to the hospital with right knee pain after falling on her right knee on October 28. Patient had bacteremia with MRSA. Required blood transfusion. Patient had MRSA grow out of the synovial fluid of the right knee. Patient received transesophageal echocardiogram which did not reveal any evidence of infective endocarditis. Patient has been on IV vancomycin for 11 days. Orthopedic surgery has been following her and manage getting her primarily. Infectious disease has also been managing her as well and we are currently following all recommendations by them. Patient had been in the hospital for several days receiving her IV antimicrobials as she is awaiting insurance approval for transfer to a halfway facility. Throughout her course of stay, patient improved clinically after right knee washout. Patient will be receiving weekly BMP, CBC, sedimentation rates, vancomycin troughs. Patient will be get an IV vancomycin outpatient to complete 6 weeks of treatment. Patient is currently on day 11. Patient will be following infectious disease outpatient as well as orthopedics. Patient not having any other complaints at time of discharge. - Time Spent with Patient Total time spent providing and/or coordinating discharge services: - Discharge Medications Prescriptions: OxyCODONE Immed Rel [Roxicodone 5 MG] 5 mg PO Q6-8H PRN 5 Days #20 tablet PRN Reason: Severe Pain Rifampin [Rifadin] 300 mg PO BID #84 capsule Home Medications: Atorvastatin [Lipitor] 40 mg PO HS 04/10/15 [History] Sertraline [Zoloft] 100 mg PO DAILY 04/10/15 [History] Levothyroxine [Synthroid] 112 mcg PO QAM 09/01/16 [History] Potassium Chloride [Klor-Con 10] 20 meq PO BID 09/01/16 [History] Mirabegron [Myrbetriq] 50 mg PO DAILY 06/29/17 [History] Furosemide [Lasix] 40 mg PO DAILY #30 07/17/17 [Rx] Pantoprazole Sodium [Protonix] 40 mg PO BID #60 tablet. 07/17/17 [Rx] BuPROPion SR (12 HR) [Wellbutrin SR] 150 mg PO BID 07/26/17 [History] Oxybutynin [Ditropan] 5 mg PO DAILY #30 tablet 08/16/17 [Rx] Amitriptyline [Elavil] 25 mg PO HS 09/19/17 [History] Buspirone HCl [Buspar] 10 mg PO BID 09/19/17 [History] Famotidine [Heartburn Prevention] 20 mg PO DAILY 09/19/17 [History] Fluticasone Propionate [Flovent Hfa] 1 puff IH BID 09/19/17 [History] Nystatin POWDER [Nystop] 1 appl TP BID 09/19/17 [History] Quetiapine Fumarate [Seroquel] 75 mg PO HS 09/19/17 [History] Diphenoxylate/Atropine [Lomotil 2.5 mg/0.025 mg] 1 tab PO QID PRN 09/23/17 [ History] Melatonin/Pyridoxine HCl (B6) [Melatonin 5 mg Tablet] 5 mg PO HS PRN 09/23/17 [ History] Beclomethasone Diprop 80mcg [QVAR 80 mcg] 1 puff IH BIDR puff 10/09/17 [Rx] Aspirin Enteric Coated [Aspirin EC] 325 mg PO BID #20 tablet. 10/13/17 [Rx] Ibuprofen [Motrin] 600 mg PO BID PRN 10/29/17 [History] Rifampin [Rifadin] 300 mg PO BID #84 capsule 11/08/17 [Rx] OxyCODONE Immed Rel [Roxicodone 5 MG] 5 mg PO Q6-8H PRN 5 Days #20 tablet [Rx] Allergies/Adverse Reactions: 3 Allergy/AdvReac Type Severity Reaction Status Date / Time No Known Allergies Allergy Verified 10/29/17 17:11 Date of admission: 10/30/17 16:34 Primary care physician: Johnie Farley MD Consults: 10/31/17 16:01 Consult to Infectious Diseases [CONS] Routine Consulting Provider: Infectious Disease Afia Reason for Consult: MRSA Bacteremia Time Notified: 16:01 Call Completed: Yes 11/02/17 18:19 Consult to Occupational Therapy [CONS] Routine Comment: Evaluate, develop and implement POC Reason for Consult: post knee surgery Does patient have active BEDREST order?: No Is patient medically & hemodynamically stable?: Yes Consult to Orthopedic Navigator [CONS] [CONS] Routine Consult to Physical Therapy [CONS] Routine Comment: Evaluate, develop and impliment POC Reason for Consult: post knee surgery Does patient have active BEDREST order?: No Is patient medically & hemodynamically stable?: Yes Consult to Elementary Esl Teacher [CONS] Routine Reason for SW Consult: post op joint replacement RT Post Op Consult [CONS] Routine - Constitutional Vitals: Temp Pulse Resp BP Pulse Ox 98.0 F 88 20 120/73 97 11/09/17 07:51 11/09/17 07:51 11/09/17 07:51 11/09/17 07:51 11/09/17 07:51 General appearance: Present: cooperative, A&O X 3, morbidly obese, pleasant, answers questions appropriately - Head Head exam: Present: atraumatic - ENT ENT exam: Present: mucous membranes moist, normal exam - Neck Neck exam general surgery: Present: full ROM, normal inspection - Respiratory Respiratory exam: Present: rhonchi (Mild) - Cardiovascular Cardiovascular exam: Present: RRR - Patient Status Disposition: Transfer Other Condition: Good Overall status at discharge: patient is progressing back to baseline - Discharge Instructions Instructions: Sepsis (DC), Anemia (GEN) Follow Up With: Dee Sellers PAC [Physician Powerhouse Helper] - 11/14/17 9:00 am Johnie Farley MD [Primary Care Provider] - Anne Hanson CNP [Advanced Practice Nurse] - 11/20/17 9:40 am Additional Instructions: NO KNEE MOTION, DO NOT REMOVE IMMOBILIZER, DRESSING WILL BE CHANGED AT FOLLOW UP APPOINTMENT WITH [facility]. Follow-up with orthopedics by setting up an appointment with them for when they want to see you. Continue Vancomycin IV. Pharmacy to dose. Goal trough ~15. Vanc trough 16.8 11/08. Duration of treatment depends on the clinical picture. Monitor renal function and for drug toxicity and dose-adjust antibiotics. Will add rifampin 300mg PO BID at discharge. Baseline LFTs normal. Rx printed and placed in the patient's discharge folder. Wound care and activity restrictions per the ortho team. Will need 6 weeks (42 days) of IV antibiotics, currently on day 11. Will need weekly CBC, BUN/Cr, ESR, CRP, LFTs, and Vanc trough. Will need weekly PICC care per protocol. Follow up with ID 11/20/17 at 0940. - Diet and Activity Activity: other (Activity per Orthopedic team) Diet: advance to your usual diet - VTE Documentation of Mechanical Device: Venous foot pump, device <Colt Collado - Last Filed: 11/09/17 18:24> Date of Encounter: 11/09/17 - Discharge Diagnosis (1) Sepsis Status: Resolved Qualifiers: Sepsis type: methicillin resistant Staphylococcus aureus Qualified Code(s) : A41.02 - Sepsis due to Methicillin resistant Staphylococcus aureus (2) MRSA bacteremia Priority: Primary Status: Resolved (3) Prosthetic joint infection Status: Acute Qualifiers: Encounter type: subsequent encounter Qualified Code(s): T84.50XD - Infection and inflammatory reaction due to unspecified internal joint prosthesis , subsequent encounter (4) Anemia Status: Chronic Qualifiers: Anemia type: other cause Other causes of anemia: chronic disease, other Qualified Code(s): D63.8 - Anemia in other chronic diseases classified elsewhere (5) Multiple sclerosis Status: Chronic (6) Obstructive sleep apnea Priority: Secondary Status: Chronic (7) Morbid obesity with BMI of 45.0-49.9, adult Priority: Secondary Status: Chronic (8) Tobacco abuse Priority: Secondary Status: Chronic Hospital course: Ms. Copeland is a 57 year old female - Time Spent with Patient Total time spent providing and/or coordinating discharge services: 38min Date of admission: 10/30/17 16:34 Primary care physician: Johnie Farley MD Consults: 10/31/17 16:01 Consult to Infectious Diseases [CONS] Routine Consulting Provider: Infectious Disease Afia Reason for Consult: MRSA Bacteremia Time Notified: 16:01 Call Completed: Yes 11/02/17 18:19 Consult to Occupational Therapy [CONS] Routine Comment: Evaluate, develop and implement POC Reason for Consult: post knee surgery Does patient have active BEDREST order?: No Is patient medically & hemodynamically stable?: Yes Consult to Orthopedic Navigator [CONS] [CONS] Routine Consult to Physical Therapy [CONS] Routine Comment: Evaluate, develop and impliment POC Reason for Consult: post knee surgery Does patient have active BEDREST order?: No Is patient medically & hemodynamically stable?: Yes Consult to Elementary Esl Teacher [CONS] Routine Reason for SW Consult: post op joint replacement RT Post Op Consult [CONS] Routine - Constitutional Vitals: Temp Pulse Resp BP Pulse Ox 98.0 F 88 16 120/73 96 11/09/17 07:51 11/09/17 07:51 11/09/17 08:41 11/09/17 07:51 11/09/17 08:41 - Attending Attestation I examined this patient and my medical decision-making was reviewed with the Resident Physician on 11/09/17. I agree with the documented findings, disposition and treatment plan as described except to the extent set forth below. Ms Copeland has been admitted for MRSA bacteremia and prosthetic joint infection. She is currently afebrile. She has been approved for SNF today and will be discharged. Exam alert Comfortable Mucus membranes dry Heart distant No wheeze Plan D/C to SNF today.
--- NOTE | 2017-11-09 14:15 | Orthopedics Progress Note ---
Date of Encounter: 11/09/17 Time of Encounter: 11:30 - Assessment and Plan (1) Prosthetic joint infection Current Visit: Yes Status: Acute NO KNEE MOTION Splint to be left in place until follow up with [facility] next week. Educated patient will need to be in splint for prolonged period of time. Extra padding to be added at proximal aspect of splint. WBAT in permanent splint WITH WALKER. IV ABx IV Vancomycin x 6 weeks per ID - patient educated of importance of these antibiotics and that she get them as scheduled. Patient awaiting auth to [employer]. [id number] required per patient's insurance - completed by Dr. Collado. Patient to d/c today. Patient to be seen outpatient at [facility] once discharged 11/14 at 0900 Qualifiers: Encounter type: subsequent encounter Qualified Code(s): T84.50XD - Infection and inflammatory reaction due to unspecified internal joint prosthesis , subsequent encounter (2) Status post total right knee replacement Current Visit: Yes Status: Chronic (3) Knee contusion Current Visit: Yes Status: Acute Qualifiers: Encounter type: subsequent encounter Laterality: right Qualified Code(s) : S80.01XD - Contusion of right knee, subsequent encounter Subjective Principal diagnosis: Left infected total knee arthroplasty Interval history: Ms. Copeland is a 57 year old female well known to [facility] having a right knee chronic dislocation failing conservative treatment and ultimately requiring right total knee replacement to restore stability and function to the knee on . Patient has been seen by this provider several times since her knee replacement in outpatient setting. Patient was to be wearing knee TROM brace in locked extension with no knee motion however patient has been non compliant with this and admits to falling several times since her replacement. She presented to [facility] ED per patient secondary to continued knee incision drainage however per record was secondary to a fall and was admitted for UTI with developing sepsis. Subsequently patient has had confirmed MRSA culture to the right knee joint and underwent I&D jamie exchange by Dr. Luong on 11/02/17 with findings of: Disruption of extensor mechanism secondary to trauma patient had multiple falls since surgery patient with a history of MRSA UTI cultures positive for MRSA no gross pus serosanguineous fluid. Patient was placed in splint to improve compliance with no knee motion. Patient seen today resting comfortably in chair. Patient alert and oriented to person and place but not time. Patient did recognize this provider today. New casted splint in place and patient states it is comfortable - admits to some itching to proximal splint. Neurovascularly intact to bilateral lower extremities. S/p R TKR 10/13/17 and I&D jamie exchange right knee 11/02/17 NO KNEE MOTION Splint to be left in place until follow up with [facility] next week. Educated patient will need to be in splint for prolonged period of time. Extra padding to be added at proximal aspect of splint. WBAT in permanent splint WITH WALKER. IV ABx IV Vancomycin x 6 weeks per ID - patient educated of importance of these antibiotics and that she get them as scheduled. Patient awaiting auth to [employer]. [id number] required per patient's insurance - completed by Dr. Collado. Patient to d/c today. Patient to be seen outpatient at [facility] once discharged 11/14 at 0900 Objective Vital signs: Vital Signs Temp Pulse Resp BP Pulse Ox 11/09/17 08:41 16 96 11/09/17 07:51 98.0 F 88 20 120/73 97 11/09/17 00:34 97.6 F 83 17 121/72 96 11/08/17 20:21 18 96 11/08/17 18:46 98.9 F 97 17 145/76 93 11/08/17 15:00 98.1 F 94 16 118/57 97 Intake and Output 11/08/17 11/09/17 11/09/17 23:59 07:59 15:59 Intake Total 250 / 250 480 / 480 Balance 250 / 250 480 / 480 Intake: IV Fluids 250 / 250 Vancocin 1,500 MG In 0.9 % 250 / 250 Sodium Chloride 250 ML @ 166. 667 mls/hr IVPB Q24H MARGA Rx#: [id number] Oral 480 / 480 Other: Meal Breakfast Percent of Meal Consumed 80% # Voids 0 1 1 Weight 110.6 kg Patient Weight 11/09/17 23:59 Weight 110.6 kg - Labs CBC & BMP: 11/05/17 07:30 11/08/17 08:04 Labs: Abnormal lab results RBC 3.03 M/mcL (3.82-4.97) L 11/05/17 07:30 Hgb 8.7 g/dL (11.5-15.4) L 11/05/17 07:30 Hct 27.0 % (35.3-44.9) L 11/05/17 07:30 RDW 15.5 % (11.5-14.5) H 11/05/17 07:30 ESR 86 mm/hr (0-15) H 10/29/17 17:16 Carbon Dioxide 31 mEq/L (23-29) H 11/05/17 07:30 Est GFR (Non-Af Amer) 59 (> 60) L 11/08/17 08:04 Calcium 8.3 mg/dL (8.6-10.3) L 11/05/17 07:30 Iron < 10 mcg/dL (50-170) L 10/30/17 01:17 Transferrin 169 mg/dL (203-362) L 10/30/17 01:17 Ferritin 647 ng/ml (10-120) H 10/30/17 01:17 AST 9 Units/L (13-39) L 11/06/17 11:45 Alkaline Phosphatase 125 Units/L (34-104) H 11/06/17 11:45 C-Reactive Protein 288 mg/L (Less than 10) H 10/29/17 17:16 Serum Total Protein 5.5 g/dL (6.4-8.9) L 11/06/17 11:45 Albumin 3.1 g/dL (3.5-5.7) L 11/06/17 11:45 Vitamin B12 166 pg/mL (250-1100) L 10/30/17 01:17 Urine Clarity Cloudy (Clear) A 10/29/17 17:00 Ur Specific [place] 1.009 (1.010-1.025) L 10/29/17 17:00 Urine Nitrite Positive (Negative) A 10/29/17 17:00 Ur Leukocyte Esterase Large (Negative) H 10/29/17 17:00 Urine Microscopic WBC 50-100 per hpf (0-3) H 10/29/17 17:00 Ur Squamous Epith Cells Many per lpf (None-Few) H 10/29/17 17:00 Urine Bacteria Many per hpf (None-Few) H 10/29/17 17:00 Staphylococcus sp PCR DETECTED (Not Detect) A 10/29/17 17:16 Staph aureus (PCR) DETECTED (Not Detect) A 10/29/17 17:16 mecA-Methicil Res Gene DETECTED (Not Detect) A 10/29/17 17:16 Antibody Screen POSITIVE A 10/30/17 03:18 - VTE Documentation of Mechanical Device: Venous foot pump, device Consult Discharge Plan - Plan Instructions: Sepsis (DC), Anemia (GEN) Additional Instructions: NO KNEE MOTION, DO NOT REMOVE IMMOBILIZER, DRESSING WILL BE CHANGED AT FOLLOW UP APPOINTMENT WITH [facility]. Follow-up with orthopedics by setting up an appointment with them for when they want to see you. Continue Vancomycin IV. Pharmacy to dose. Goal trough ~15. Vanc trough 16.8 11/08. Duration of treatment depends on the clinical picture. Monitor renal function and for drug toxicity and dose-adjust antibiotics. Will add rifampin 300mg PO BID at discharge. Baseline LFTs normal. Rx printed and placed in the patient's discharge folder. Wound care and activity restrictions per the ortho team. Will need 6 weeks (42 days) of IV antibiotics, currently on day 11. Will need weekly CBC, BUN/Cr, ESR, CRP, LFTs, and Vanc trough. Will need weekly PICC care per protocol. Follow up with ID 11/20/17 at 0940. Referrals: Dee Sellers PAC [Physician Press Machine Feeder] - 11/14/17 9:00 am Johnie Farley MD [Primary Care Provider] - Anne Hanson CNP [Advanced Practice Nurse] - 11/20/17 9:40 am Prescriptions: OxyCODONE Immed Rel [Roxicodone 5 MG] 5 mg PO Q6-8H PRN 5 Days #20 tablet PRN Reason: Severe Pain Rifampin [Rifadin] 300 mg PO BID #84 capsule
[2017-11-09] MEDS ORDERED: Aminoglycoside Consult 1 EACH MC ONE (14:58)
== END 2017-11-09 14:59 | disposition other institution (70) | DRG 466 ==
LOC: EMEROO 15:15 → 3NENU 15:15 → SUATTDRO 10-30 16:34
PROVIDERS: ADMIT Pediatrics; ATTEND Internal Medicine
PROC: ORTPOLY (2017-11-02 16:10)

== ENCOUNTER 2017-12-29 17:18 | Observation (INO) ==
[2017-12-29] MEDS ORDERED: Isovue-370 500 ML INFUS..BTL IV ONE (17:37)
--- NOTE | 2017-12-29 18:03 | Emergency Department Note ---
Disposition Clinical Impression: Hematochezia, Anal cancer, Hypokalemia Abdominal pain Qualifiers: Abdominal location: unspecified location Qualified Code(s): R10.9 - Unspecified abdominal pain Disposition: Admitted As Inpatient Condition: Fair Time of Disposition: 21:29 General Adult HPI - General Chief complaint: ED GI Bleed Stated complaint: abd pain, constipation Time Seen by Provider: 12/29/17 17:22 Source: patient, EMS Mode of arrival: EMS Limitations: no limitations Nursing Notes Reviewed: Yes Vital Signs Reviewed: Yes - History of Present Illness HPI Narrative: Patient is a 57-year-old female that presents the emergency department with abdominal pain and blood in her stool. She states that she has a history of anal cancer and had surgery as well as chemo and radiation. States that over the last month she is having recurrent abdominal pain and palpitations. Patient states that the pain is diffuse over her entire abdomen and is worse after she eats. Patient states that she has had some blood in her stool. Patient states that she tried an enema this morning and it came out looking like red Morteza-[employer]. Patient states that her abdominal pain feels similar to when she had the diagnosis of anal cancer. Patient denies any chest pain but she states that she has been having palpitations over the past month. Pain Scale: 0 - Related Data Home Medications Medication Instructions Recorded Confirmed Atorvastatin [Lipitor] 40 mg PO HS 04/10/15 12/29/17 Sertraline [Zoloft] 100 mg PO DAILY 04/10/15 12/29/17 Levothyroxine [Synthroid] 112 mcg PO QAM 09/01/16 12/29/17 Potassium Chloride [Klor-Con 10] 20 meq PO TID 09/01/16 12/29/17 BuPROPion SR (12 HR) [Wellbutrin 150 mg PO BID 07/26/17 12/29/17 SR] Buspirone HCl [Buspar] 10 mg PO BID 09/19/17 12/29/17 Famotidine [Heartburn Prevention] 20 mg PO DAILY 09/19/17 12/29/17 Fluticasone Propionate [Flovent 1 puff IH BID 09/19/17 12/29/17 Hfa] Nystatin POWDER [Nystop] 1 appl TP BID 09/19/17 12/29/17 Melatonin/Pyridoxine HCl (B6) 5 mg PO HS PRN 02/03/18 05/11/18 [Melatonin 5 mg Tablet] Ibuprofen [Motrin] 600 mg PO BID PRN 10/29/17 12/29/17 Lisinopril-HCTZ 10-12.5 [Prinzide 1 tab PO DAILY 12/29/17 12/29/17 10-12.5] Previous Rx's Medication Instructions Recorded Furosemide [Lasix] 40 mg PO DAILY #30 07/17/17 Pantoprazole Sodium [Protonix] 40 mg PO BID #60 tablet. 07/17/17 Aspirin Enteric Coated [Aspirin EC] 325 mg PO BID #20 tablet. 10/13/17 Rifampin [Rifadin] 300 mg PO BID #84 capsule 11/08/17 Diphenoxylate/Atropine [Lomotil 1 tab PO QID PRN 15 Days #60 tablet 12/18/17 2.5 mg/0.025 mg] Allergies Allergy/AdvReac Type Severity Reaction Status Date / Time No Known Allergies Allergy Verified 12/29/17 20:05 All systems ED: reviewed and negative except as stated. Cardiovascular: Reports: palpitations. Denies: chest pain Respiratory: Denies: dyspnea Gastrointestinal: Reports: abdominal pain, melena, hematochezia Past Medical History - Past Medical History Medical history: Reports: cancer, CHF, COPD, hyperlipidemia, thyroid disease, other Surgical history: Reports: appendectomy, breast surgery, knee replacement, other Psychiatric history: Reports: anxiety, depression, previous psychiatric hospitalization [employer]ACH history: Reports: bilateral tubal ligation - Social History Smoking Status: Former smoker Smokeless Tobacco Status: No Alcohol use: Reports: none Drug use: Reports: marijuana Physical Exam - General Limitations: no limitations General appearance: alert, in no apparent distress - Head Head exam: atraumatic, normocephalic - Eye Eye exam: Present: normal appearance, EOMI - Neck Neck exam: Present: normal inspection, full ROM, trachea midline - Respiratory Respiratory exam: Present: normal lung sounds bilaterally. Absent: respiratory distress, wheezes - Cardiovascular Cardiovascular exam: Present: regular rate, normal rhythm, normal heart sounds, +S1, +S2 - Abdominal Exam Abdominal exam: Present: soft, tenderness, normal bowel sounds Abdominal tenderness: Present: diffuse, moderate - Neurological Exam Neurological exam: Present: alert, oriented X3 - Psychiatric Psychiatric exam: Present: normal affect, normal mood - Skin Skin exam: Present: warm, dry, intact Course Vital Signs Temperature 98.2 F 12/29/17 17:22 Pulse Rate 80 12/29/17 17:22 Respiratory Rate 18 12/29/17 17:22 Blood Pressure 140/82 12/29/17 17:22 O2 Sat by Pulse Oximetry 99 12/29/17 17:22 Temperature 98.2 F 12/29/17 17:22 Pulse Rate 80 12/29/17 17:22 Respiratory Rate 16 12/29/17 20:54 Blood Pressure 123/73 12/29/17 20:54 O2 Sat by Pulse Oximetry 99 12/29/17 17:22 Oxygen Delivery Oxygen Delivery Room Air Medical Decision Making - MDM Narrative Medical decision making narrative: Due to the patient presenting with abdominal pain and reports of blood in her stool we will obtain laboratory testing as well as imaging. The patient's laboratory testing showed a potassium of 2.5. The patient was given oral and IV potassium. Per hospitalist requested IV potassium. We will continue with oral potassium. Patient had a stool occult that was performed at bedside which was negative for acute blood. The CT scan of the abdomen and pelvis did not identify any acute abnormalities. Patient does have a slight anemia of 10.0. Patient appears to have a chronic anemia. Based on the patient's finding of the hypokalemia I feel that the patient needs be admitted to the hospital for further evaluation and management. The attending Dr. Rendon called and spoke to the hospitalist Dr. Martinez and he has accepted the patient to his service. The patient will be admitted to the hospital at this time for further evaluation and management. - Medical Records Medical records reviewed: Yes I reviewed the patient's medical records. - Lab Data Lab results reviewed: Yes I reviewed the patient's lab results. Result diagrams: 12/29/17 18:18 12/29/17 18:18 Lab Results 12/29/17 12/29/17 12/29/17 Range/Units 17:53 18:18 18:18 WBC 8.1 (4.3-11.1) K/mcL RBC 3.34 L (3.82-4.97) M/mcL Hgb 10.0 L (11.5-15.4) g/dL Hct 29.5 L (35.3-44.9) % MCV 88.3 (83.0-100.0) fL MCH 29.9 (28.0-33.3) pg MCHC 33.9 (31.6-35.5) g/dL RDW 16.6 H (11.5-14.5) % Plt Count 169 (140-400) K/mcL MPV 11.0 (9.4-12.4) fL Immature Gran % 0.4 (0-4) % Seg Neutrophils % 75.1 % Lymphocytes % 15.1 % Monocytes % 6.5 % Eosinophils % 2.7 % Basophils % 0.2 % Neutrophils # 6.1 (1.6-8.9) K/mcL Lymphocytes # 1.2 (0.6-4.6) K/mcL Monocytes # 0.5 (0.0-1.3) K/mcL Eosinophils # 0.2 (0.0-0.6) K/mcL Basophils # 0.0 (0.0-0.2) K/mcL Nucleated RBCs/100 WBC 0.2 H (0) /100 WBC PT 11.1 (9.4-12.1) Seconds INR 1.0 APTT 26.8 (26.0-36.0) Seconds Sodium (136-145) mEq/L Potassium (3.5-5.1) mEq/L Chloride (98-107) mEq/L Carbon Dioxide (23-29) mEq/L BUN (6-20) mg/dL Creatinine (0.60-1.20) mg/dL Est GFR ( Amer) (> 60) Est GFR (Non-Af Amer) (> 60) BUN/Creatinine Ratio (6-26) Glucose (70-105) mg/dL Calculated Osmolality (280-300) Lactic Acid (0.5-2.2) mmol/L Calcium (8.6-10.3) mg/dL Total Bilirubin (0.3-1.0) mg/dL AST (13-39) Units/L ALT (7-52) Units/L Alkaline Phosphatase (34-104) Units/L Troponin I (< 0.04) ng/mL Serum Total Protein (6.4-8.9) g/dL Albumin (3.5-5.7) g/dL Globulin (2.4-3.5) g/dL Albumin/Globulin Ratio (1.1-2.2) Urine Color Yellow (Yellow) Urine Clarity Clear (Clear) Urine pH 6.0 (5.0-8.0) pH Units Ur Specific [place] 1.012 (1.010-1.025) Urine Protein Negative (Neg-Trace) mg/dL Urine Glucose (UA) Normal (Normal) mg/dL Urine Ketones Negative (Negative) mg/dL Urine Blood Small H (Negative) Urine Nitrite Negative (Negative) Urine Bilirubin Negative (Negative) Urine Urobilinogen Normal (Normal) mg/dL Ur Leukocyte Esterase Negative (Negative) Urine Microscopic RBC 0-3 (0-3) per hpf Urine Microscopic WBC 0-3 (0-3) per hpf Ur Squamous Epith Cells Many H (None-Few) per lpf Urine Bacteria None Seen (None-Few) per hpf Hyaline Casts None Seen (None-Few) per lpf Ur Culture Indicated? NO (NO) Blood Type Antibody Screen 12/29/17 12/29/17 12/29/17 Range/Units 18:18 18:18 18:18 WBC (4.3-11.1) K/mcL RBC (3.82-4.97) M/mcL Hgb (11.5-15.4) g/dL Hct (35.3-44.9) % MCV (83.0-100.0) fL MCH (28.0-33.3) pg MCHC (31.6-35.5) g/dL RDW (11.5-14.5) % Plt Count (140-400) K/mcL MPV (9.4-12.4) fL Immature Gran % (0-4) % Seg Neutrophils % % Lymphocytes % % Monocytes % % Eosinophils % % Basophils % % Neutrophils # (1.6-8.9) K/mcL Lymphocytes # (0.6-4.6) K/mcL Monocytes # (0.0-1.3) K/mcL Eosinophils # (0.0-0.6) K/mcL Basophils # (0.0-0.2) K/mcL Nucleated RBCs/100 WBC (0) /100 WBC PT (9.4-12.1) Seconds INR APTT (26.0-36.0) Seconds Sodium 142 (136-145) mEq/L Potassium 2.5 L* (3.5-5.1) mEq/L Chloride 108 H (98-107) mEq/L Carbon Dioxide 24 (23-29) mEq/L BUN 5 L (6-20) mg/dL Creatinine 0.72 (0.60-1.20) mg/dL Est GFR ( Amer) > 60 (> 60) Est GFR (Non-Af Amer) > 60 (> 60) BUN/Creatinine Ratio 7 (6-26) Glucose 104 (70-105) mg/dL Calculated Osmolality 292 (280-300) Lactic Acid 1.7 (0.5-2.2) mmol/L Calcium 9.1 (8.6-10.3) mg/dL Total Bilirubin 0.4 (0.3-1.0) mg/dL AST 8 L (13-39) Units/L ALT 9 (7-52) Units/L Alkaline Phosphatase 106 H (34-104) Units/L Troponin I < 0.03 (< 0.04) ng/mL Serum Total Protein 6.1 L (6.4-8.9) g/dL Albumin 3.7 (3.5-5.7) g/dL Globulin 2.4 (2.4-3.5) g/dL Albumin/Globulin Ratio 1.5 (1.1-2.2) Urine Color (Yellow) Urine Clarity (Clear) Urine pH (5.0-8.0) pH Units Ur Specific [place] (1.010-1.025) Urine Protein (Neg-Trace) mg/dL Urine Glucose (UA) (Normal) mg/dL Urine Ketones (Negative) mg/dL Urine Blood (Negative) Urine Nitrite (Negative) Urine Bilirubin (Negative) Urine Urobilinogen (Normal) mg/dL Ur Leukocyte Esterase (Negative) Urine Microscopic RBC (0-3) per hpf Urine Microscopic WBC (0-3) per hpf Ur Squamous Epith Cells (None-Few) per lpf Urine Bacteria (None-Few) per hpf Hyaline Casts (None-Few) per lpf Ur Culture Indicated? (NO) Blood Type B POSITIVE Antibody Screen NEGATIVE - Radiology Data Radiology results reviewed: Yes I reviewed the patient's radiology results.
[2017-12-29 18:11] LABS: Bilirubin,Urine Negative (Negative); Blood,Urine Small (Negative); Clarity,Urine Clear (Clear); Color,Urine Yellow (Yellow); Glucose,Urine (UA) Normal (Normal); Ketones,Urine Negative (Negative); Leukocyte Esterase,Urine Negative (Negative); Nitrite,Urine Negative (Negative); Protein,Urine Negative (Neg-Trace); Specific Gravity,Urine 1.012 (1.010-1.025); Urobilinogen,Urine Normal (Normal)
[2017-12-29 18:14] LABS: Bacteria,Urine None Seen per hpf (None-Few); Hyaline Casts,Urine None Seen per lpf (None-Few); RBC,Urine 0-3 per hpf (0-3); Squamous Epithelial Cell,Urine Many per lpf (None-Few); WBC,Urine 0-3 per hpf (0-3)
--- NOTE | 2017-12-29 18:23 | Emergency Department Note ---
Disposition Clinical Impression: Hematochezia, Anal cancer Abdominal pain Qualifiers: Abdominal location: unspecified location Qualified Code(s): R10.9 - Unspecified abdominal pain Disposition: Admitted As Inpatient General Adult HPI - General Chief complaint: ED GI Bleed Stated complaint: abd pain, constipation Time Seen by Provider: 12/29/17 17:22 Source: patient, EMS Mode of arrival: EMS Limitations: no limitations - History of Present Illness Pain Scale: 0 - Related Data Home Medications Medication Instructions Recorded Confirmed Atorvastatin [Lipitor] 40 mg PO HS 04/10/15 12/29/17 Sertraline [Zoloft] 100 mg PO DAILY 04/10/15 12/29/17 Levothyroxine [Synthroid] 112 mcg PO QAM 09/01/16 12/29/17 Potassium Chloride [Klor-Con 10] 20 meq PO TID 09/01/16 12/29/17 BuPROPion SR (12 HR) [Wellbutrin 150 mg PO BID 07/26/17 12/29/17 SR] Buspirone HCl [Buspar] 10 mg PO BID 09/19/17 12/29/17 Famotidine [Heartburn Prevention] 20 mg PO DAILY 09/19/17 12/29/17 Fluticasone Propionate [Flovent 1 puff IH BID 09/19/17 12/29/17 Hfa] Nystatin POWDER [Nystop] 1 appl TP BID 09/19/17 12/29/17 Melatonin/Pyridoxine HCl (B6) 5 mg PO HS PRN 09/23/17 12/29/17 [Melatonin 5 mg Tablet] Ibuprofen [Motrin] 600 mg PO BID PRN 10/29/17 12/29/17 Lisinopril-HCTZ 10-12.5 [Prinzide 1 tab PO DAILY 12/29/17 12/29/17 10-12.5] Previous Rx's Medication Instructions Recorded Furosemide [Lasix] 40 mg PO DAILY #30 07/17/17 Pantoprazole Sodium [Protonix] 40 mg PO BID #60 tablet. 07/17/17 Aspirin Enteric Coated [Aspirin EC] 325 mg PO BID #20 tablet. 10/13/17 Rifampin [Rifadin] 300 mg PO BID #84 capsule 11/08/17 Diphenoxylate/Atropine [Lomotil 1 tab PO QID PRN 15 Days #60 tablet 04/30/18 2.5 mg/0.025 mg] Allergies Allergy/AdvReac Type Severity Reaction Status Date / Time No Known Allergies Allergy Verified 12/29/17 20:05 Cardiovascular: Reports: palpitations. Denies: chest pain Respiratory: Denies: dyspnea Gastrointestinal: Reports: abdominal pain, melena, hematochezia Past Medical History - Past Medical History Medical history: Reports: cancer, CHF, COPD, hyperlipidemia, thyroid disease, other Surgical history: Reports: appendectomy, breast surgery, knee replacement, other Psychiatric history: Reports: anxiety, depression, previous psychiatric hospitalization [employer] history: Reports: bilateral tubal ligation - Social History Smoking Status: Former smoker Smokeless Tobacco Status: No Alcohol use: Reports: none Drug use: Reports: marijuana Physical Exam - General Limitations: no limitations General appearance: alert, in no apparent distress Course Vital Signs Temperature 98.2 F 12/29/17 17:22 Pulse Rate 80 12/29/17 17:22 Respiratory Rate 18 12/29/17 17:22 Blood Pressure 140/82 12/29/17 17:22 O2 Sat by Pulse Oximetry 99 12/29/17 17:22 Temperature 98.2 F 12/29/17 17:22 Pulse Rate 80 12/29/17 17:22 Respiratory Rate 16 12/29/17 20:54 Blood Pressure 123/73 12/29/17 20:54 O2 Sat by Pulse Oximetry 99 12/29/17 17:22 Oxygen Delivery Oxygen Delivery Room Air Medical Decision Making - Lab Data Result diagrams: 12/29/17 18:18 12/29/17 18:18 Lab Results 12/29/17 12/29/17 12/29/17 Range/Units 17:53 18:18 18:18 WBC 8.1 (4.3-11.1) K/mcL RBC 3.34 L (3.82-4.97) M/mcL Hgb 10.0 L (11.5-15.4) g/dL Hct 29.5 L (35.3-44.9) % MCV 88.3 (83.0-100.0) fL MCH 29.9 (28.0-33.3) pg MCHC 33.9 (31.6-35.5) g/dL RDW 16.6 H (11.5-14.5) % Plt Count 169 (140-400) K/mcL MPV 11.0 (9.4-12.4) fL Immature Gran % 0.4 (0-4) % Seg Neutrophils % 75.1 % Lymphocytes % 15.1 % Monocytes % 6.5 % Eosinophils % 2.7 % Basophils % 0.2 % Neutrophils # 6.1 (1.6-8.9) K/mcL Lymphocytes # 1.2 (0.6-4.6) K/mcL Monocytes # 0.5 (0.0-1.3) K/mcL Eosinophils # 0.2 (0.0-0.6) K/mcL Basophils # 0.0 (0.0-0.2) K/mcL Nucleated RBCs/100 WBC 0.2 H (0) /100 WBC PT 11.1 (9.4-12.1) Seconds INR 1.0 APTT 26.8 (26.0-36.0) Seconds Sodium (136-145) mEq/L Potassium (3.5-5.1) mEq/L Chloride (98-107) mEq/L Carbon Dioxide (23-29) mEq/L BUN (6-20) mg/dL Creatinine (0.60-1.20) mg/dL Est GFR ( Amer) (> 60) Est GFR (Non-Af Amer) (> 60) BUN/Creatinine Ratio (6-26) Glucose (70-105) mg/dL Calculated Osmolality (280-300) Lactic Acid (0.5-2.2) mmol/L Calcium (8.6-10.3) mg/dL Total Bilirubin (0.3-1.0) mg/dL AST (13-39) Units/L ALT (7-52) Units/L Alkaline Phosphatase (34-104) Units/L Troponin I (< 0.04) ng/mL Serum Total Protein (6.4-8.9) g/dL Albumin (3.5-5.7) g/dL Globulin (2.4-3.5) g/dL Albumin/Globulin Ratio (1.1-2.2) Urine Color Yellow (Yellow) Urine Clarity Clear (Clear) Urine pH 6.0 (5.0-8.0) pH Units Ur Specific [place] 1.012 (1.010-1.025) Urine Protein Negative (Neg-Trace) mg/dL Urine Glucose (UA) Normal (Normal) mg/dL Urine Ketones Negative (Negative) mg/dL Urine Blood Small H (Negative) Urine Nitrite Negative (Negative) Urine Bilirubin Negative (Negative) Urine Urobilinogen Normal (Normal) mg/dL Ur Leukocyte Esterase Negative (Negative) Urine Microscopic RBC 0-3 (0-3) per hpf Urine Microscopic WBC 0-3 (0-3) per hpf Ur Squamous Epith Cells Many H (None-Few) per lpf Urine Bacteria None Seen (None-Few) per hpf Hyaline Casts None Seen (None-Few) per lpf Ur Culture Indicated? NO (NO) Blood Type Antibody Screen 12/29/17 12/29/17 12/29/17 Range/Units 18:18 18:18 18:18 WBC (4.3-11.1) K/mcL RBC (3.82-4.97) M/mcL Hgb (11.5-15.4) g/dL Hct (35.3-44.9) % MCV (83.0-100.0) fL MCH (28.0-33.3) pg MCHC (31.6-35.5) g/dL RDW (11.5-14.5) % Plt Count (140-400) K/mcL MPV (9.4-12.4) fL Immature Gran % (0-4) % Seg Neutrophils % % Lymphocytes % % Monocytes % % Eosinophils % % Basophils % % Neutrophils # (1.6-8.9) K/mcL Lymphocytes # (0.6-4.6) K/mcL Monocytes # (0.0-1.3) K/mcL Eosinophils # (0.0-0.6) K/mcL Basophils # (0.0-0.2) K/mcL Nucleated RBCs/100 WBC (0) /100 WBC PT (9.4-12.1) Seconds INR APTT (26.0-36.0) Seconds Sodium 142 (136-145) mEq/L Potassium 2.5 L* (3.5-5.1) mEq/L Chloride 108 H (98-107) mEq/L Carbon Dioxide 24 (23-29) mEq/L BUN 5 L (6-20) mg/dL Creatinine 0.72 (0.60-1.20) mg/dL Est GFR ( Amer) > 60 (> 60) Est GFR (Non-Af Amer) > 60 (> 60) BUN/Creatinine Ratio 7 (6-26) Glucose 104 (70-105) mg/dL Calculated Osmolality 292 (280-300) Lactic Acid 1.7 (0.5-2.2) mmol/L Calcium 9.1 (8.6-10.3) mg/dL Total Bilirubin 0.4 (0.3-1.0) mg/dL AST 8 L (13-39) Units/L ALT 9 (7-52) Units/L Alkaline Phosphatase 106 H (34-104) Units/L Troponin I < 0.03 (< 0.04) ng/mL Serum Total Protein 6.1 L (6.4-8.9) g/dL Albumin 3.7 (3.5-5.7) g/dL Globulin 2.4 (2.4-3.5) g/dL Albumin/Globulin Ratio 1.5 (1.1-2.2) Urine Color (Yellow) Urine Clarity (Clear) Urine pH (5.0-8.0) pH Units Ur Specific [place] (1.010-1.025) Urine Protein (Neg-Trace) mg/dL Urine Glucose (UA) (Normal) mg/dL Urine Ketones (Negative) mg/dL Urine Blood (Negative) Urine Nitrite (Negative) Urine Bilirubin (Negative) Urine Urobilinogen (Normal) mg/dL Ur Leukocyte Esterase (Negative) Urine Microscopic RBC (0-3) per hpf Urine Microscopic WBC (0-3) per hpf Ur Squamous Epith Cells (None-Few) per lpf Urine Bacteria (None-Few) per hpf Hyaline Casts (None-Few) per lpf Ur Culture Indicated? (NO) Blood Type B POSITIVE Antibody Screen NEGATIVE Attestation Statement - Attestation Attestation: I examined this patient and my medical decision-making was reviewed with the BEVELER/PA/Advanced Practice Nurse/Resident Physician. I agree with the documented findings, disposition and treatment plan as described except to the extent set forth below. Patient does have a history of rectal cancer and today did have blood per rectum , does have abdominal pain, initial diagnosis was 12 years ago and she is concerned about a recurrence. We do have orders for blood work as well as CT scan. Results are pending. 1823 I did review the patient's EKG showing normal sinus rhythm with a rate of 89 without acute ischemic change [address] Martinez and we discussed the patient's presentation and diagnosis and he accepts the patient for admission 2032
[2017-12-29 18:40] LABS: Basophils % 0.2 %; Eosinophils # 0.2 K/mcL (0.0-0.6); Eosinophils % 2.7 %; Hematocrit 29.5 % (35.3-44.9); Immature Granulocytes % 0.4 % (0-4); Lymphocytes # 1.2 K/mcL (0.6-4.6); Lymphocytes % 15.1 %; Mean Corpuscular HGB Conc 33.9 g/dL (31.6-35.5); Mean Corpuscular Hemoglobin 29.9 pg (28.0-33.3); Mean Corpuscular Volume 88.3 fL (83.0-100.0); Monocytes # 0.5 K/mcL (0.0-1.3); Monocytes % 6.5 %; Neutrophils # 6.1 K/mcL (1.6-8.9); Nucleated Red Blood Cells 0.2 /100 WBC (0); Platelet Count 169 K/mcL (140-400); Red Blood Count 3.34 M/mcL (3.82-4.97); Red Cell Distribution Width 16.6 % (11.5-14.5); Segmented Neutrophils % 75.1 %
[2017-12-29 18:46] LABS: Prothrombin Time 11.1 Seconds (9.4-12.1)
[2017-12-29 18:49] LABS: Activated Partial Thrombo Time 26.8 Seconds (26.0-36.0)
[2017-12-29 19:01] LABS: Troponin I < 0.03 ng/mL (< 0.04)
[2017-12-29 19:11] LABS: Alanine Aminotransferase 9 Units/L (7-52); Albumin 3.7 g/dL (3.5-5.7); Albumin/Globulin Ratio 1.5 (1.1-2.2); Alkaline Phosphatase 106 Units/L (34-104); Aspartate Amino Transferase 8 Units/L (13-39); BUN/Creatinine Ratio 7 (6-26); Bilirubin,Total 0.4 mg/dL (0.3-1.0); Blood Urea Nitrogen 5 mg/dL (6-20); Calcium 9.1 mg/dL (8.6-10.3); Carbon Dioxide 24 mEq/L (23-29); Chloride 108 mEq/L (98-107); Globulin 2.4 g/dL (2.4-3.5); Glucose 104 mg/dL (70-105); Osmolality,Calculated 292 (280-300); Potassium 2.5 mEq/L (3.5-5.1); Sodium 142 mEq/L (136-145); Total Protein 6.1 g/dL (6.4-8.9); eGFR For African Americans > 60 (> 60); eGFR For Non-African Americans > 60 (> 60)
[2017-12-29] MEDS ORDERED: Potassium Chloride Elixir 20 MEQ/15 ML UDC PO ONE ×2 (20:21→22:30)
[2017-12-29] MEDS: Potassium Chloride 10 MEQ in 0.9 % Sodium Chloride 100 ML IVPB SCH ×2 (20:57→22:10)
[2017-12-29] MEDS ORDERED: Acetaminophen 325 MG TABLET PO PRN (23:24)
[2017-12-29] MEDS ORDERED: traMADol 50 MG TABLET PO PRN (23:24)
[2017-12-29] MEDS ORDERED: Naloxone 0.4 MG/ML INJ IVP PRN (23:24)
--- NOTE | 2017-12-29 23:43 | Internal Med History&Physical ---
Date of Encounter: 12/30/17 Time of Encounter: 22:05 Internal Medicine - H&P: HPI Chief complaint: rectal bleeding Admitted From: Emergency Dept Plans for Post Hospital Care: Home History of present illness: Ms. Copeland is a 57 year old female who presents to ER with complaints of rectal bleeding and muscle cramps and weakness. She has had rectal bleeding off and on for the last 3 weeks. However, she noted today that she had liquid stool with what appeared to be mostly blood coming out of her rectum while she tried to defecate. She therefore came to ER where she was admitted to hospitalist service. Of note, patient had a profound hypokalemia on her routine labs. She was transferred to the floor from the ER before that hypokalemia could be treated. I was notified by nursing staff, and I ordered stat oral potassium replacement with a repeat dose one hour later. Upon my assessment of the patient, she feels weak and complains of muscle cramps. She denies any nausea or vomiting. She complains of some vague abdominal tenderness and rectal bleeding as noted above. She just finished a long course of IV antibiotics for an infected knee replacement with MRSA. She also remains on rifampin. She states her bowel movements have been difficult to pass lately and complains mostly of constipation. Despite the constipation, I still worry about C. difficile colitis given her prolonged use of antibiotics. She does have a history of rectal cancer treated surgically and with chemotherapy and radiation roughly 12 years ago. She last had a colonoscopy about 3-4 years ago, and that was negative. She is due to have a colonoscopy in less than [address] Esquivel. She also has had one or two bouts of melena but complains mostly of rectal bleeding over the last few weeks. Past Med Surg Social Fam HX - Past Medical History Attestation: Yes The following information was validated with the patient. Source: patient, old records reviewed Medical history: cancer, CHF, COPD, hyperlipidemia, thyroid disease, other Psychiatric history: anxiety, depression, previous psychiatric hospitalization - Past Surgical History Surgical History: appendectomy, breast surgery, knee replacement, other (rectal surgery) - Social History Smoking Status: Current every day smoker Packs per day: 1pk/day Smokeless Tobacco Status: No Alcohol use: none Drug use: marijuana Current living situation: Home - Independent Activity Level: Independent ambulation Recent Out of Country Travel Within the Last 8 Weeks: No - Family History Brother Family Member Ethnicity: Non- Living Status: Still Living Sister Family Member Ethnicity: Non- Living Status: Still Living Father Family Member Ethnicity: Non- Living Status: Hx Family Cardiac Disorders: Yes (CAD) Hx Family Respiratory Disorders: Yes (COPD) Hx Family Cancer: No Hx Family GI Disorders: No Hx Family Genitourinary Disorders: No Hx Family Endocrine Disorder: No Hx Family Musculoskeletal Disorders: No Hx Family Neuromuscular Disorders: No Hx Family Neurologic Disorders: No Hx Family HEENT Disorders: No Hx Family Autoimmune Disorders: No Hx Family Reproductive Disorders: No Hx Family Psychosocial Disorders: No Hx Family Medical Disorders: No Mother Family Member Ethnicity: Non- Living Status: Hx Family Cardiac Disorders: No Hx Family Respiratory Disorders: No Hx Family Cancer: No Hx Family GI Disorders: No Hx Family Genitourinary Disorders: No Hx Family Endocrine Disorder: No Hx Family Musculoskeletal Disorders: No Hx Family Neuromuscular Disorders: No Hx Family Neurologic Disorders: No Hx Family HEENT Disorders: No Hx Family Autoimmune Disorders: No Hx Family Reproductive Disorders: No Hx Family Psychosocial Disorders: No Hx Family Medical Disorders: No Internal Medicine - H&P: Meds Atorvastatin [Lipitor] 40 mg PO HS 04/10/15 [History] Sertraline [Zoloft] 100 mg PO DAILY 04/10/15 [History] Levothyroxine [Synthroid] 112 mcg PO QAM 09/01/16 [History] Potassium Chloride [Klor-Con 10] 20 meq PO TID 09/01/16 [History] Furosemide [Lasix] 40 mg PO DAILY #30 07/17/17 [Rx] Pantoprazole Sodium [Protonix] 40 mg PO BID #60 tablet.dr 07/17/17 [Rx] BuPROPion SR (12 HR) [Wellbutrin SR] 150 mg PO BID 07/26/17 [History] Buspirone HCl [Buspar] 10 mg PO BID 09/19/17 [History] Famotidine [Heartburn Prevention] 20 mg PO DAILY 09/19/17 [History] Fluticasone Propionate [Flovent Hfa] 1 puff IH BID 09/19/17 [History] Nystatin POWDER [Nystop] 1 appl TP BID 09/19/17 [History] Melatonin/Pyridoxine HCl (B6) [Melatonin 5 mg Tablet] 5 mg PO HS PRN 09/23/17 [ History] Aspirin Enteric Coated [Aspirin EC] 325 mg PO BID #20 tablet. 10/13/17 [Rx] Ibuprofen [Motrin] 600 mg PO BID PRN 10/29/17 [History] Rifampin [Rifadin] 300 mg PO BID #84 capsule 11/08/17 [Rx] Diphenoxylate/Atropine [Lomotil 2.5 mg/0.025 mg] 1 tab PO QID PRN 15 Days #60 tablet 12/18/17 [Rx] Lisinopril-HCTZ 10-12.5 [Prinzide 10-12.5] 1 tab PO DAILY 12/29/17 [History] 3 Allergy/AdvReac Type Severity Reaction Status Date / Time No Known Allergies Allergy Verified 12/29/17 20:05 - Constitutional Constitutional: fatigue, weakness, no chills, no fever(s) - EENT Eyes: no blurry vision, no change in vision Ears: no ear pain, no tinnitus Nose, mouth and throat: no nasal congestion, no nasal discharge, no sinus pressure, no sore throat - Cardiovascular Cardiovascular ROS IM: no chest pain, no dyspnea, no dyspnea on exertion, no orthopnea, no palpitations, no paroxysmal nocturnal dyspnea - Respiratory Respiratory: no cough, no dyspnea, no hemoptysis, no dyspnea on exertion, no chest congestion, no excessive phlegm production - Gastrointestinal Gastrointestinal: bloating, constipation, hematochezia, no fecal incontinence, no heartburn, no hematemesis, no melena, no nausea, no vomiting - Genitourinary Genitourinary: no dysuria, no flank pain, no hematuria - Musculoskeletal Musculoskeletal ROS IM: muscle cramps, muscle weakness, no arthralgias, no back pain - Integumentary Integumentary IM: no rash, no jaundice - Neurological Neurological ROS: no dizziness, no focal weakness, no frequent falls, no headache(s) - Psychiatric Psychiatric: no anxiety, no depression - Endocrine Endocrine IM: no polydipsia, no polyuria - Hematologic/Lymphatic Hematologic/Lymphatic: no easy bruising, no lymphadenopathy - Allergic/Immunologic Allergic/Immunologic: no wheezing, no GI upset with certain foods - Constitutional Vitals: Temp Pulse Resp BP Pulse Ox 98.3 F 86 17 145/68 99 12/29/17 21:13 12/29/17 21:13 12/29/17 21:13 12/29/17 21:13 12/29/17 21:13 General appearance: Present: cooperative, A&O X 3, pleasant, no acute distress, answers questions appropriately - Head Head exam: Present: normal inspection - Eye Eye exam: Present: EOMI, normal appearance, PERRL. Absent: scleral icterus Pupils: Present: normal accommodation - ENT ENT exam: Present: mucous membranes dry, normal exam, normal oropharynx - Neck Neck exam general surgery: Present: full ROM, normal inspection. Absent: lymphadenopathy - Respiratory Respiratory exam: Present: CTAB. Absent: chest wall tenderness, rales, respiratory distress, rhonchi, wheezes - Cardiovascular Cardiovascular exam: Present: RRR, +S1, +S2. Absent: diastolic murmur, systolic murmur - GI/Abdominal GI/Abdominal exam: Present: distended, hyperactive bowel sounds, soft, tenderness (mild suprapubic). Absent: guarding, hepatomegaly, mass, rebound, splenomegaly, no peritoneal signs - Extremities Exam Extremities exam: Present: full ROM, normal capillary refill, warm, radial pulses palpable and symmetrical. Absent: calf tenderness, joint swelling, pedal edema, tenderness - Back Exam Back exam: Present: normal inspection. Absent: CVA tenderness (L), CVA tenderness (R) - Neurological Exam Neurological exam: Present: alert, CN II-XII intact, oriented X3, no focal deficits, strengths equal and symetr throughout - Psychiatric Psychiatric exam: Present: normal affect, normal mood - Skin Skin exam: Present: dry, warm. Absent: rash Internal Med - H&P Results - Labs CBC & Chem 7: 12/29/17 23:30 12/29/17 18:18 - EKG Data -: EKG Interpreted by Myself - EKG Data Prior EKG available for review: no EKG comments: 12/30/17 00:07 Sinus rhythm; no acute ischemic changes; incomplete RBBB - Diagnostic Studies CT scan - abdomen Status: image reviewed by me (Report reviewed as well -- negative except left renal lesion) - Assessment and plan (1) Hematochezia Current Visit: Yes Status: Acute Assessment and plan: 1. Will monitor with serial H/H and transfuse if necessary. 2. Will order C. Diff stool PCR; despite constipation, I'm highly suspicious of C. Diff given recent prolonged antibiotics. 3. Patient already has outpatient colonoscopy scheduled January [address] Esquivel. May need inpatient colonoscopy if bleeding persists. (2) Hypokalemia Current Visit: Yes Status: Acute Assessment and plan: 1. Oral replacement given upon arrival to the floor -- not treated in ER. 2. Will repeat potassium level and monitor closely. 3. Monitor on telemetry. (3) Lesion of left [place] kidney Current Visit: Yes Status: Acute Assessment and plan: 1. Will order renal ultrasound to further delineate as recommended by radiology. (4) DVT prophylaxis Current Visit: Yes Status: Acute Assessment and plan: 1. EPCD's.
[2017-12-29 23:44] LABS: Hematocrit 30.1 % (35.3-44.9); Hemoglobin 10.1 g/dL (11.5-15.4)
[2017-12-30] MEDS: Pantoprazole 40 MG VIAL IVP SCH ×2 (00:14→11:12)
[2017-12-30] MEDS: 0.9 % Sodium Chloride w KCl 20 MEQ/1,000 ML MLS IVC SCH ×2 (00:15→14:31)
[2017-12-30 05:16] LABS: Basophils % 0.5 %; Eosinophils # 0.2 K/mcL (0.0-0.6); Eosinophils % 3.2 %; Hematocrit 28.8 % (35.3-44.9); Hemoglobin 9.3 g/dL (11.5-15.4); Immature Granulocytes % 0.2 % (0-4); Lymphocytes % 16.7 %; Mean Corpuscular HGB Conc 32.3 g/dL (31.6-35.5); Mean Corpuscular Hemoglobin 28.8 pg (28.0-33.3); Mean Corpuscular Volume 89.2 fL (83.0-100.0); Mean Platelet Volume 11.4 fL (9.4-12.4); Monocytes # 0.5 K/mcL (0.0-1.3); Monocytes % 7.7 %; Neutrophils # 4.5 K/mcL (1.6-8.9); Platelet Count 160 K/mcL (140-400); Red Blood Count 3.23 M/mcL (3.82-4.97); Red Cell Distribution Width 17.1 % (11.5-14.5); Segmented Neutrophils % 71.7 %
[2017-12-30 05:41] LABS: Alanine Aminotransferase 7 Units/L (7-52); Albumin 3.6 g/dL (3.5-5.7); Albumin/Globulin Ratio 1.6 (1.1-2.2); Alkaline Phosphatase 93 Units/L (34-104); Aspartate Amino Transferase 8 Units/L (13-39); BUN/Creatinine Ratio 7 (6-26); Bilirubin,Total 0.3 mg/dL (0.3-1.0); Blood Urea Nitrogen 5 mg/dL (6-20); Calcium 9.2 mg/dL (8.6-10.3); Carbon Dioxide 26 mEq/L (23-29); Chloride 107 mEq/L (98-107); Globulin 2.2 g/dL (2.4-3.5); Glucose 103 mg/dL (70-105); Magnesium 1.7 mg/dL (1.6-2.6); Osmolality,Calculated 288 (280-300); Potassium 3.4 mEq/L (3.5-5.1); Sodium 140 mEq/L (136-145); Total Protein 5.8 g/dL (6.4-8.9); eGFR For African Americans > 60 (> 60); eGFR For Non-African Americans > 60 (> 60)
[2017-12-30 05:56] LABS: INR 1.1; Prothrombin Time 11.3 Seconds (9.4-12.1)
[2017-12-30 05:59] LABS: Activated Partial Thrombo Time 27.2 Seconds (26.0-36.0)
[2017-12-30] MEDS: rifAMPin 150 MG CAPSULE PO SCH ×2 (09:03→20:28)
[2017-12-30] MEDS: Famotidine 20 MG TABLET PO SCH (09:04)
[2017-12-30] MEDS: Nystatin POWDER 30 GM BOTTLE TP SCH ×2 (09:06→20:29)
[2017-12-30] MEDS: Beclomethasone 80mcg MDI IH SCH ×2 (09:56→20:13)
[2017-12-30 11:27] LABS: Hematocrit 29.1 % (35.3-44.9); Hemoglobin 9.7 g/dL (11.5-15.4)
--- NOTE | 2017-12-30 15:34 | Internal Med Progress Note ---
Date of Encounter: 12/30/17 Time of Encounter: 11:00 - Assessment and plan (1) Hematochezia Current Visit: Yes Status: Acute Assessment and plan: 1. Will monitor with serial H/H and transfuse if necessary. 2. Will order C. Diff stool PCR;-patient reports that she has been experiencing constipation at home however since admitted she has had several loose stools which are brown 3. Patient already has outpatient colonoscopy scheduled January [address] Esquivel. May need inpatient colonoscopy if bleeding persists. We will continue to monitor- 4 sending stool for C. difficile and GI panel check for Hemoccult (2) Hypokalemia Current Visit: Yes Status: Acute Assessment and plan: 1. Oral replacement given-we will monitor and replace as needed 2 Monitor on telemetry. (3) Lesion of left [place] kidney Current Visit: Yes Status: Acute Assessment and plan: 1. Will order renal ultrasound to further delineate as recommended by radiology -awaiting results. (4) DVT prophylaxis Current Visit: Yes Status: Acute Assessment and plan: 1. EPCD's. - Time Spent With Patient Total time spent is greater than 50% in coordination of care (as documented) at patient's floor/unit and/or counseling patient: - Subjective Interval history: Patient is new to me I have reviewed medical records. I did examine the patient at the bedside. At this time patient is up to bedside commode she is having loose watery bowel movements which are brown no darius blood seen. She does complain of abdominal cramping however abdomen is soft and non-tender to palpation. We will send stool for C. difficile and GI panel. Discussed this with the patient and review treatment plan. Patient verbalized understanding and agreement. - Constitutional Vitals: Temp Pulse Resp BP Pulse Ox 98.1 F 92 18 152/85 99 12/30/17 12:05 12/30/17 12:05 12/30/17 12:05 12/30/17 12:05 12/30/17 12:05 General appearance: Present: cooperative, A&O X 3, pleasant, no acute distress, answers questions appropriately - Head Head exam: Present: atraumatic, normocephalic - Eye Eye exam: Present: PERRL, conjuntiva pink, sclera anicteric Pupils: Present: PERRL - Neck Neck exam general surgery: Present: supple, trachea midline. Absent: lymphadenopathy - Respiratory Respiratory exam: Present: CTAB. Absent: accessory muscle use, rales, rhonchi, wheezes - Cardiovascular Cardiovascular exam: Present: RRR, +S1, +S2. Absent: diastolic murmur, gallop, rubs, systolic murmur - GI/Abdominal GI/Abdominal exam: Present: normal bowel sounds, soft, no peritoneal signs. Absent: distended, tenderness - Extremities Exam Extremities exam: Present: warm, radial pulses palpable and symmetrical. Absent : calf tenderness, cyanotic, pedal edema - Neurological Exam Neurological exam: Present: CN II-XII intact, oriented X3, no focal deficits. Absent: pronater drift, facial droop, speech deficit - Skin Skin exam: Present: dry, intact Internal Medicine: Result - Labs CBC & Chem 7: 12/30/17 11:08 12/30/17 03:51 Labs: Short CBC 12/29/17 12/30/17 12/30/17 Range/Units 23:30 03:51 11:08 WBC 6.2 (4.3-11.1) K/mcL Hgb 10.1 L 9.3 L 9.7 L (11.5-15.4) g/dL Hct 30.1 L 28.8 L 29.1 L (35.3-44.9) % Plt Count 160 (140-400) K/mcL Neutrophils # 4.5 (1.6-8.9) K/mcL BMP 12/29/17 12/30/17 23:33 03:51 Sodium 140 Potassium 3.4 L D 3.4 L Chloride 107 Carbon Dioxide 26 BUN 5 L Creatinine 0.74 Glucose 103 Calcium 9.2 Liver Function 12/30/17 Range/Units 03:51 Total Bilirubin 0.3 (0.3-1.0) mg/dL AST 8 L (13-39) Units/L ALT 7 (7-52) Units/L Alkaline Phosphatase 93 (34-104) Units/L Albumin 3.6 (3.5-5.7) g/dL - ABG Interpretation ABG results: PT/INR, D-dimer PT 11.3 Seconds (9.4-12.1) 12/30/17 03:51 - Impressions Impressions Retroperitoneum Ultrasound 12/30/17 00:15 IMPRESSION: A 1.8 cm lesion in the inferior pole of the left kidney likely represents a mildly complicated cyst. Suggest six-month follow-up ultrasound. D/ / Charly Senior MD / Charly Senior MD Interpreting Provider: Charly Senior MD Consult Discharge Plan - Plan Referrals: Johnie Farley MD [Primary Care Provider] -
[2017-12-30 20:00] LABS: Adenovirus F 40/41 PCR Not detected (Not detect); Astrovirus PCR Not detected (Not detect); Campylobacter by PCR Not detected (Not detect); Cryptosporidium by PCR Not detected (Not detect); Cyclospora cayetanensis PCR Not detected (Not detect); E. coli O157 by PCR Not detected (Not detect); Entamoeba histolytica PCR Not detected (Not detect); Enteroaggregative E.coli(EAEC) Not detected (Not detect); Enteropathogenic E.coli(EPEC) Not detected (Not detect); Enterotoxigenic E.coli (ETEC) Not detected (Not detect); Giardia lamblia PCR Not detected (Not detect); Norovirus GI/GII PCR Not detected (Not detect); Plesiomonas shigelloides PCR Not detected (Not detect); Rotavirus A PCR Not detected (Not detect); Salmonella PCR Not detected (Not detect); Sapovirus PCR Not detected (Not detect); Shig/EnteroinvasiveE coli EIEC Not detected (Not detect); Shigalike tox-prod E coli STEC Not detected (Not detect); Vibrio PCR Not detected (Not detect); Vibrio cholerae PCR Not detected (Not detect); Yersinia enterocolitica PCR Not detected (Not detect)
[2017-12-30 23:35] LABS: Hematocrit 29.6 % (35.3-44.9); Hemoglobin 9.8 g/dL (11.5-15.4)
[2017-12-31] MEDS: Pantoprazole 40 MG VIAL IVP SCH ×3 (00:18→23:50)
[2017-12-31 05:54] LABS: Basophils % 0.4 %; Eosinophils # 0.2 K/mcL (0.0-0.6); Eosinophils % 3.3 %; Hematocrit 28.4 % (35.3-44.9); Hemoglobin 9.3 g/dL (11.5-15.4); Immature Granulocytes % 0.4 % (0-4); Lymphocytes % 18.5 %; Mean Corpuscular HGB Conc 32.7 g/dL (31.6-35.5); Mean Corpuscular Hemoglobin 29.5 pg (28.0-33.3); Mean Corpuscular Volume 90.2 fL (83.0-100.0); Mean Platelet Volume 11.4 fL (9.4-12.4); Monocytes # 0.5 K/mcL (0.0-1.3); Monocytes % 8.8 %; Neutrophils # 3.8 K/mcL (1.6-8.9); Platelet Count 146 K/mcL (140-400); Red Blood Count 3.15 M/mcL (3.82-4.97); Red Cell Distribution Width 16.9 % (11.5-14.5); Segmented Neutrophils % 68.6 %
[2017-12-31 06:13] LABS: BUN/Creatinine Ratio 9 (6-26); Blood Urea Nitrogen 6 mg/dL (6-20); Calcium 9.2 mg/dL (8.6-10.3); Carbon Dioxide 25 mEq/L (23-29); Chloride 109 mEq/L (98-107); Glucose 100 mg/dL (70-105); Osmolality,Calculated 290 (280-300); Potassium 3.1 mEq/L (3.5-5.1); Sodium 141 mEq/L (136-145); eGFR For African Americans > 60 (> 60); eGFR For Non-African Americans > 60 (> 60)
[2017-12-31] MEDS: Beclomethasone 80mcg MDI IH SCH ×2 (07:40→19:33)
[2017-12-31] MEDS: Famotidine 20 MG TABLET PO SCH (07:46)
[2017-12-31] MEDS: Nystatin POWDER 30 GM BOTTLE TP SCH ×2 (07:47→19:57)
[2017-12-31] MEDS: rifAMPin 150 MG CAPSULE PO SCH ×2 (07:47→19:56)
[2017-12-31] MEDS ORDERED: Potassium Chloride 20 MEQ, Lidocaine 1% 2 ML in D5% in Water 250 ML IVPB ONE (08:30)
[2017-12-31 11:23] LABS: Hematocrit 27.8 % (35.3-44.9); Hemoglobin 9.3 g/dL (11.5-15.4)
--- NOTE | 2017-12-31 15:29 | Internal Med Progress Note ---
Date of Encounter: 12/31/17 Time of Encounter: 11:00 - Assessment and plan (1) Hematochezia Current Visit: Yes Status: Acute Assessment and plan: Patient reports past history of blood in stool none noted during this stay. Hemoccult was negative GI panel was negative C. difficile was negative. Patient does report history of constipation however she did have loose stools while admitted. This has stopped and she has been tolerating oral intake. She is scheduled for outpatient colonoscopy January [address] Esquivel-we will have patient follow up with Dr. Nelson as outpatient (2) Hypokalemia Current Visit: Yes Status: Acute Assessment and plan: 1. Oral replacement given-we will monitor and replace as needed 2 Monitor on telemetry. (3) Lesion of left [place] kidney Current Visit: Yes Status: Acute Assessment and plan: 1. Renal ultrasound did show a 1.8 cm lesion in the inferior pole of left kidney likely represents a mild complicated cyst. Suggest six-month follow-up ultrasound (4) DVT prophylaxis Current Visit: Yes Status: Acute Assessment and plan: 1. EPCD's. - Time Spent With Patient Total time spent is greater than 50% in coordination of care (as documented) at patient's floor/unit and/or counseling patient: - Subjective Interval history: Patient was seen and examined at bedside. Presently her loose stools have improved. She is tolerating oral intake. Hemoccult is negative GI panel is negative C. difficile is negative. Renal ultrasound did show a 1.8 cm lesion at the inferior pole of the left kidney likely represents a mildly complicated cyst suggest six-month follow-up with ultrasound. I did review this with the patient she verbalized understanding. Did discuss possible discharge today however patient expressed that she does not have any food at home is unable to give food today. We will put and social service consult for discharge planning in the a.m. - Constitutional Vitals: Temp Pulse Resp BP Pulse Ox 99 F 89 16 131/85 99 12/31/17 12:04 12/31/17 12:04 12/31/17 12:04 12/31/17 12:04 12/31/17 12:04 General appearance: Present: cooperative, A&O X 3, pleasant, no acute distress, answers questions appropriately - Head Head exam: Present: atraumatic, normocephalic - Eye Eye exam: Present: PERRL, conjuntiva pink, sclera anicteric Pupils: Present: PERRL - Neck Neck exam general surgery: Present: supple, trachea midline. Absent: lymphadenopathy - Respiratory Respiratory exam: Present: CTAB. Absent: accessory muscle use, rales, rhonchi, wheezes - Cardiovascular Cardiovascular exam: Present: RRR, +S1, +S2. Absent: diastolic murmur, gallop, rubs, systolic murmur - GI/Abdominal GI/Abdominal exam: Present: normal bowel sounds, soft, no peritoneal signs. Absent: distended, tenderness - Extremities Exam Extremities exam: Present: warm, radial pulses palpable and symmetrical. Absent : calf tenderness, cyanotic, pedal edema - Neurological Exam Neurological exam: Present: CN II-XII intact, oriented X3, no focal deficits. Absent: pronater drift, facial droop, speech deficit - Skin Skin exam: Present: dry, intact Internal Medicine: Result - Labs CBC & Chem 7: 12/31/17 11:12 12/31/17 05:02 Labs: Short CBC 12/30/17 12/31/17 12/31/17 Range/Units 23:17 05:02 11:12 WBC 5.5 (4.3-11.1) K/mcL Hgb 9.8 L 9.3 L 9.3 L (11.5-15.4) g/dL Hct 29.6 L 28.4 L 27.8 L (35.3-44.9) % Plt Count 146 (140-400) K/mcL Neutrophils # 3.8 (1.6-8.9) K/mcL BMP 12/31/17 05:02 Sodium 141 Potassium 3.1 L Chloride 109 H Carbon Dioxide 25 BUN 6 Creatinine 0.69 Glucose 100 Calcium 9.2 - ABG Interpretation ABG results: PT/INR, D-dimer PT 11.3 Seconds (9.4-12.1) 12/30/17 03:51 - VTE Documentation of Mechanical Device: Graduated compression elastic hosiery Consult Discharge Plan - Plan Referrals: Johnie Farley MD [Primary Care Provider] -
[2017-12-31 23:27] LABS: Hematocrit 27.6 % (35.3-44.9); Hemoglobin 9.2 g/dL (11.5-15.4)
[2018-01-01 05:03] LABS: Basophils % 0.4 %; Eosinophils # 0.2 K/mcL (0.0-0.6); Hematocrit 27.1 % (35.3-44.9); Hemoglobin 9.2 g/dL (11.5-15.4); Immature Granulocytes % 0.4 % (0-4); Lymphocytes # 0.9 K/mcL (0.6-4.6); Lymphocytes % 19.5 %; Mean Corpuscular HGB Conc 33.9 g/dL (31.6-35.5); Mean Corpuscular Hemoglobin 30.2 pg (28.0-33.3); Mean Corpuscular Volume 88.9 fL (83.0-100.0); Mean Platelet Volume 10.5 fL (9.4-12.4); Monocytes # 0.4 K/mcL (0.0-1.3); Monocytes % 8.4 %; Neutrophils # 3.2 K/mcL (1.6-8.9); Platelet Count 135 K/mcL (140-400); Red Blood Count 3.05 M/mcL (3.82-4.97); Red Cell Distribution Width 16.7 % (11.5-14.5); Segmented Neutrophils % 67.3 %
[2018-01-01 05:24] LABS: BUN/Creatinine Ratio 9 (6-26); Blood Urea Nitrogen 7 mg/dL (6-20); Carbon Dioxide 27 mEq/L (23-29); Chloride 110 mEq/L (98-107); Glucose 103 mg/dL (70-105); Osmolality,Calculated 290 (280-300); Potassium 3.5 mEq/L (3.5-5.1); Sodium 141 mEq/L (136-145); eGFR For African Americans > 60 (> 60); eGFR For Non-African Americans > 60 (> 60)
[2018-01-01] MEDS: Beclomethasone 80mcg MDI IH SCH (08:03)
[2018-01-01] MEDS: Famotidine 20 MG TABLET PO SCH (08:46)
[2018-01-01] MEDS: rifAMPin 150 MG CAPSULE PO SCH (08:46)
[2018-01-01] MEDS: Nystatin POWDER 30 GM BOTTLE TP SCH (08:47)
[2018-01-01] MEDS: Pantoprazole 40 MG VIAL IVP SCH (10:54)
[2018-01-01 12:05] VITALS: BP 149/94
[2018-01-01 12:24] LABS: Hematocrit 31.1 % (35.3-44.9); Hemoglobin 10.1 g/dL (11.5-15.4)
--- NOTE | 2018-01-01 13:12 | Electrocardiograph Report ---
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
--- NOTE | 2018-01-01 13:54 | Discharge Summary ---
- NOTES TO OUTPATIENT PROVIDER Notes to Outpatient Provider: Patient has outpatient colonoscopy scheduled with Dr. Esquivel January 11. Renal ultrasound did show a 1.8 cm lesion in the inferior pole of the left kidney likely representing a mild complicated cyst. Suggest six- month follow-up ultrasound. Orders not resulted at time of discharge: Pending orders 12/30/17 06:00 ECG 12 lead ECG [ECG] AM 0600 01/01/18 23:30 Hemoglobin and Hematocrit [HEME] Q12H 01/02/18 11:30 Hemoglobin and Hematocrit [HEME] Q12H Date of Encounter: 01/01/18 Time of Encounter: 13:52 - Discharge Diagnosis (1) Hematochezia Priority: Primary Status: Acute (2) Hypokalemia Priority: Secondary Status: Acute (3) Lesion of left [place] kidney Priority: Secondary Status: Acute Hospital course: Ms. Copeland is a 57 year old female past medical history of CHF COPD hyperlipidemia thyroid disease cancer. She presented to the ER with complaints of rectal bleeding muscle cramps and weakness. She had rectal bleeding off and on for the last 3 weeks. She states that her stool has been liquid which appears to be mostly blood coming out of her rectum while she tried to defecate. She did have hypokalemia on presentation and this was treated and has been resolved she recently underwent knee replacement and had to receive IV antibiotics for MRSA. She has been worked up for C. difficile which was negative GI panel was negative Hemoccult was negative patient did have diarrhea for 2 days and then it has resolved. Presently patient complains of constipation and asking for a laxative. Hemoglobin has been stable throughout admission vital signs have been stable. Patient does have an outpatient colonoscopy with Dr. Esquivel 01/11/2018. Currently does not have any abdominal pain chest pain or shortness of breath-prior to discharge patient verbalized that she has no food at her home and is unable to purchase any food. medical staff services manager has been consulted and has given patient information concerning food [place] available in her area. Patient will be discharged home advised patient to continue current medications and to follow-up with primary care as well as GI. Patient verbalized understanding she is ready for discharge. Discharge discussed with: patient, social work - Time Spent with Patient Total time spent providing and/or coordinating discharge services: - Discharge Medications Home Medications: Atorvastatin [Lipitor] 40 mg PO HS 04/10/15 [History] Sertraline [Zoloft] 100 mg PO DAILY 04/10/15 [History] Levothyroxine [Synthroid] 112 mcg PO QAM 09/01/16 [History] Potassium Chloride [Klor-Con 10] 20 meq PO TID 09/01/16 [History] Furosemide [Lasix] 40 mg PO DAILY #30 07/17/17 [Rx] Pantoprazole Sodium [Protonix] 40 mg PO BID #60 tablet. 07/17/17 [Rx] BuPROPion SR (12 HR) [Wellbutrin SR] 150 mg PO BID 07/26/17 [History] Buspirone HCl [Buspar] 10 mg PO BID 09/19/17 [History] Famotidine [Heartburn Prevention] 20 mg PO DAILY 09/19/17 [History] Fluticasone Propionate [Flovent Hfa] 1 puff IH BID 09/19/17 [History] Nystatin POWDER [Nystop] 1 appl TP BID 09/19/17 [History] Melatonin/Pyridoxine HCl (B6) [Melatonin 5 mg Tablet] 5 mg PO HS PRN 09/23/17 [ History] Aspirin Enteric Coated [Aspirin EC] 325 mg PO BID #20 tablet. 10/13/17 [Rx] Ibuprofen [Motrin] 600 mg PO BID PRN 10/29/17 [History] Rifampin [Rifadin] 300 mg PO BID #84 capsule 11/08/17 [Rx] Diphenoxylate/Atropine [Lomotil 2.5 mg/0.025 mg] 1 tab PO QID PRN 15 Days #60 tablet 12/18/17 [Rx] Lisinopril-HCTZ 10-12.5 [Prinzide 10-12.5] 1 tab PO DAILY 12/29/17 [History] Allergies/Adverse Reactions: 3 Allergy/AdvReac Type Severity Reaction Status Date / Time No Known Allergies Allergy Verified 12/29/17 20:05 Date of admission: 12/29/17 20:48 Primary care physician: Johnie Farley MD Consults: 12/31/17 13:00 Consult to [employer] [CONS] Routine Reason for Consult: patient states she has nothing to eat at home Discharging clinician: Carmen Nuno Anticipated date of discharge: 01/01/18 - Constitutional Vitals: Temp Pulse Resp BP Pulse Ox 97.8 F 80 18 149/94 97 01/01/18 12:04 01/01/18 12:04 01/01/18 12:04 01/01/18 12:04 01/01/18 12:04 General appearance: Present: cooperative, A&O X 3, pleasant, no acute distress, answers questions appropriately - Head Head exam: Present: atraumatic, normocephalic - Eye Eye exam: Present: PERRL, conjuntiva pink, sclera anicteric Pupils: Present: PERRL - Neck Neck exam general surgery: Present: supple, trachea midline. Absent: lymphadenopathy - Respiratory Respiratory exam: Present: CTAB. Absent: accessory muscle use, rales, rhonchi, wheezes - Cardiovascular Cardiovascular exam: Present: RRR, +S1, +S2. Absent: diastolic murmur, gallop, rubs, systolic murmur - GI/Abdominal GI/Abdominal exam: Present: normal bowel sounds, soft, no peritoneal signs. Absent: distended, tenderness - Extremities Exam Extremities exam: Present: warm, radial pulses palpable and symmetrical. Absent : calf tenderness, cyanotic, pedal edema - Neurological Exam Neurological exam: Present: CN II-XII intact, oriented X3, no focal deficits. Absent: pronater drift, facial droop, speech deficit - Skin Skin exam: Present: dry, intact - Patient Status Disposition: Home, Self-Care Condition: Fair Functional capacity at discharge: independent ambulation Overall status at discharge: patient is back to baseline - Discharge Instructions Follow Up With: Johnie Farley MD [Primary Care Provider] - Marina Esquivel MD [Partnered Physician] - - Diet and Activity Activity: resume usual activities as tolerated Diet: advance to your usual diet - VTE Documentation of Mechanical Device: Intermittent pneumatic compression device
== END 2018-01-01 15:00 | disposition home or self-care (01) ==
LOC: 3BNU 17:18 → EMEROO 17:18 → 3BNU 21:01
PROVIDERS: ADMIT Pediatrics; ATTEND Pediatrics

== ENCOUNTER 2018-02-17 04:21 | Inpatient (IN) ==
[2018-02-17] MEDS ORDERED: Aspirin 81 MG TAB.CHEW PO ONE (04:27)
[2018-02-17] MEDS ORDERED: Ondansetron 4 MG/2 ML VIAL IVP ONE (04:32)
[2018-02-17] MEDS ORDERED: Isovue-370 500 ML INFUS..BTL IV ONE (04:53)
[2018-02-17 04:57] LABS: Basophils % 0.2 %; Eosinophils # 0.2 K/mcL (0.0-0.6); Eosinophils % 1.5 %; Hematocrit 32.8 % (35.3-44.9); Hemoglobin 11.5 g/dL (11.5-15.4); Immature Granulocytes % 0.8 % (0-4); Lymphocytes # 1.8 K/mcL (0.6-4.6); Lymphocytes % 14.6 %; Mean Corpuscular HGB Conc 35.1 g/dL (31.6-35.5); Mean Corpuscular Hemoglobin 30.1 pg (28.0-33.3); Mean Corpuscular Volume 85.9 fL (83.0-100.0); Mean Platelet Volume 11.4 fL (9.4-12.4); Monocytes # 1.1 K/mcL (0.0-1.3); Monocytes % 8.6 %; Neutrophils # 9.1 K/mcL (1.6-8.9); Platelet Count 198 K/mcL (140-400); Red Blood Count 3.82 M/mcL (3.82-4.97); Red Cell Distribution Width 14.6 % (11.5-14.5); Segmented Neutrophils % 74.3 %
[2018-02-17] MEDS ORDERED: *HR* Promethazine 25 MG/ML VIAL IVP ONE (05:08)
[2018-02-17 05:16] LABS: BUN/Creatinine Ratio 13 (6-26); Blood Urea Nitrogen 22 mg/dL (6-20); Calcium 8.7 mg/dL (8.6-10.3); Carbon Dioxide 20 mEq/L (23-29); Chloride 90 mEq/L (98-107); Glucose 131 mg/dL (70-105); Osmolality,Calculated 261 (280-300); Potassium 3.8 mEq/L (3.5-5.1); Sodium 123 mEq/L (136-145); Troponin I < 0.03 ng/mL (< 0.04); eGFR For African Americans 37 (> 60); eGFR For Non-African Americans 30 (> 60)
[2018-02-17] MEDS ORDERED: 0.9 % Sodium Chloride 1,000 ML IVC ONE (05:30)
--- NOTE | 2018-02-17 06:20 | Emergency Department Note ---
Disposition Referrals: Johnie Farley MD [Primary Care Provider] - General Adult HPI - General Chief complaint: ED Chest Pain Stated complaint: chest pain Time Seen by Provider: 02/17/18 04:25 Source: patient, EMS Limitations: no limitations - History of Present Illness Pain Scale: 0 - Related Data Home Medications Medication Instructions Recorded Confirmed Atorvastatin [Lipitor] 40 mg PO HS 04/10/15 12/29/17 Sertraline [Zoloft] 100 mg PO DAILY 04/10/15 12/29/17 Levothyroxine [Synthroid] 112 mcg PO QAM 09/01/16 12/29/17 Potassium Chloride [Klor-Con 10] 20 meq PO TID 09/01/16 12/29/17 BuPROPion SR (12 HR) [Wellbutrin 150 mg PO BID 07/26/17 12/29/17 SR] Buspirone HCl [Buspar] 10 mg PO BID 09/19/17 12/29/17 Famotidine [Heartburn Prevention] 20 mg PO DAILY 09/19/17 12/29/17 Fluticasone Propionate [Flovent 1 puff IH BID 09/19/17 12/29/17 Hfa] Nystatin POWDER [Nystop] 1 appl TP BID 09/19/17 12/29/17 Melatonin/Pyridoxine HCl (B6) 5 mg PO HS PRN 09/23/17 12/29/17 [Melatonin 5 mg Tablet] Ibuprofen [Motrin] 600 mg PO BID PRN 10/29/17 12/29/17 Lisinopril-HCTZ 10-12.5 [Prinzide 1 tab PO DAILY 12/29/17 12/29/17 10-12.5] Previous Rx's Medication Instructions Recorded Furosemide [Lasix] 40 mg PO DAILY #30 07/17/17 Pantoprazole Sodium [Protonix] 40 mg PO BID #60 tablet. 07/17/17 Aspirin Enteric Coated [Aspirin EC] 325 mg PO BID #20 tablet. 10/13/17 Rifampin [Rifadin] 300 mg PO BID #84 capsule 11/08/17 Diphenoxylate/Atropine [Lomotil 1 tab PO QID PRN 15 Days #60 tablet 02/01/18 2.5 mg/0.025 mg] Na Phos,M-B/Na Phos,Di-Ba [Fleet 230 ml RC DAILY #2 enema 02/15/18 Enema Extra] Ondansetron HCl [Zofran] 4 mg PO TID #15 tablet 02/15/18 Allergies Allergy/AdvReac Type Severity Reaction Status Date / Time vancomycin Allergy Itching Verified 01/11/18 09:56 Past Medical History - Past Medical History Medical history: Reports: cancer, CHF, COPD, GERD, hyperlipidemia, thyroid disease, other Surgical history: Reports: appendectomy, breast surgery, knee replacement, other Psychiatric history: Reports: anxiety, depression, previous psychiatric hospitalization [employer] history: Reports: bilateral tubal ligation - Social History Smoking Status: Current every day smoker Smokeless Tobacco Status: No Alcohol use: Reports: none Drug use: Reports: marijuana Physical Exam - General Limitations: no limitations General appearance: alert Course Vital Signs Temperature 97.6 F 02/17/18 04:22 Pulse Rate 100 02/17/18 04:22 Respiratory Rate 20 02/17/18 04:22 Blood Pressure 104/69 02/17/18 04:22 O2 Sat by Pulse Oximetry 98 02/17/18 04:22 Temperature 97.6 F 02/17/18 04:22 Pulse Rate 83 02/17/18 05:56 Respiratory Rate 18 02/17/18 05:56 Blood Pressure 83/51 02/17/18 05:56 O2 Sat by Pulse Oximetry 97 02/17/18 05:56 Oxygen Delivery Oxygen Delivery Nasal Cannula Medical Decision Making - Lab Data Result diagrams: 02/17/18 04:41 02/17/18 04:41 Lab Results 02/17/18 02/17/18 Range/Units 04:41 04:41 WBC 12.3 H (4.3-11.1) K/mcL RBC 3.82 (3.82-4.97) M/mcL Hgb 11.5 (11.5-15.4) g/dL Hct 32.8 L (35.3-44.9) % MCV 85.9 (83.0-100.0) fL MCH 30.1 (28.0-33.3) pg MCHC 35.1 (31.6-35.5) g/dL RDW 14.6 H (11.5-14.5) % Plt Count 198 (140-400) K/mcL MPV 11.4 (9.4-12.4) fL Immature Gran % 0.8 (0-4) % Seg Neutrophils % 74.3 % Lymphocytes % 14.6 % Monocytes % 8.6 % Eosinophils % 1.5 % Basophils % 0.2 % Neutrophils # 9.1 H (1.6-8.9) K/mcL Lymphocytes # 1.8 (0.6-4.6) K/mcL Monocytes # 1.1 (0.0-1.3) K/mcL Eosinophils # 0.2 (0.0-0.6) K/mcL Basophils # 0.0 (0.0-0.2) K/mcL Sodium 123 L (136-145) mEq/L Potassium 3.8 (3.5-5.1) mEq/L Chloride 90 L (98-107) mEq/L Carbon Dioxide 20 L (23-29) mEq/L BUN 22 H (6-20) mg/dL Creatinine 1.72 H (0.60-1.20) mg/dL Est GFR ( Amer) 37 L (> 60) Est GFR (Non-Af Amer) 30 L (> 60) BUN/Creatinine Ratio 13 (6-26) Glucose 131 H (70-105) mg/dL Calculated Osmolality 261 L (280-300) Calcium 8.7 (8.6-10.3) mg/dL Troponin I < 0.03 (< 0.04) ng/mL Attestation Statement - Attestation Attestation: I examined this patient and my medical decision-making was reviewed with the Resident Physician. I agree with the documented findings, disposition and treatment plan as described except to the extent set forth below. Findings consistent with vomiting, chest pain, diarrhea. CT scan shows no acute findings within the abdomen or pelvis. Chest x-ray is negative. Cardiac biomarkers are negative. Nausea is controlled. She does have significant metabolic derangements including signs of dehydration. Plan to start hydration and admit for further management.
--- NOTE | 2018-02-17 06:21 | Emergency Department Note ---
Disposition Clinical Impression: Hyponatremia, KRISHNA (acute kidney injury) Diarrhea Qualifiers: Diarrhea type: unspecified type Qualified Code(s): R19.7 - Diarrhea, unspecified Disposition: Admitted As Inpatient Condition: Fair Time of Disposition: 07:13 General Adult HPI - General Chief complaint: ED Chest Pain Stated complaint: chest pain Time Seen by Provider: 02/17/18 04:25 Source: patient, EMS Limitations: no limitations Nursing Notes Reviewed: Yes Vital Signs Reviewed: Yes - History of Present Illness HPI Narrative: Patient is a 49-year-old female with past medical history of CHF, COPD, GERD, HLD, and thyroid disease presenting to the emergency department for the evaluation of nausea and vomiting associated with chest pain. The patient states her chest pain first started approximately 2 PM yesterday which she states that it was across the lower ribs bilaterally were describes as a pressure-like pain. States that her symptoms resolved after about an hour. However at 2:00 AM this morning she states that she woke up and she is very nauseous and she had at least 5 episodes of nausea and vomiting that were nonbloody as well as 2 episodes of watery diarrhea associated with returning of the chest pain. Pain Scale: 0 - Related Data Home Medications Medication Instructions Recorded Confirmed Levothyroxine [Synthroid] 112 mcg PO QAM 09/01/16 02/17/18 Potassium Chloride [Klor-Con 10] 20 meq PO TID 09/01/16 02/17/18 Buspirone HCl [Buspar] 10 mg PO BID 09/19/17 02/17/18 Famotidine [Heartburn Prevention] 20 mg PO DAILY 09/19/17 02/17/18 Fluticasone Propionate [Flovent 1 puff IH BID 09/19/17 02/17/18 Hfa] Nystatin POWDER [Nystop] 1 appl TP BID 09/19/17 02/17/18 Ibuprofen [Motrin] 600 mg PO BID PRN 10/29/17 02/17/18 Lisinopril-HCTZ 10-12.5 [Prinzide 1 tab PO DAILY 12/29/17 02/17/18 10-12.5] Albuterol Sulfate [Ventolin Hfa] 2 puff IH BID 02/17/18 02/17/18 Amitriptyline [Elavil] 25 mg PO HS 02/17/18 02/17/18 Budesonide/Formoterol 160/4.5 2 puff IH BIDR 02/17/18 02/17/18 [Symbicort 160/4.5] Gabapentin [Neurontin] 300 mg PO BID 02/17/18 02/17/18 Trazodone HCl 300 mg PO HS 02/17/18 02/17/18 hydrOXYzine pamoate [HydrOXYzine 25 - 50 mg PO BID 02/17/18 02/17/18 Pamoate] Previous Rx's Medication Instructions Recorded Furosemide [Lasix] 40 mg PO DAILY #30 07/17/17 Pantoprazole Sodium [Protonix] 40 mg PO BID #60 tablet. 07/17/17 Aspirin Enteric Coated [Aspirin EC] 325 mg PO BID #20 tablet. 10/13/17 Diphenoxylate/Atropine [Lomotil 1 tab PO QID PRN 15 Days #60 tablet 02/01/18 2.5 mg/0.025 mg] Allergies Allergy/AdvReac Type Severity Reaction Status Date / Time vancomycin Allergy Itching Verified 02/17/18 16:19 All systems ED: reviewed and negative except as stated. Review of Systems: As Per HPI Constitutional: Denies: fever, chills Cardiovascular: Reports: chest pain. Denies: palpitations, dyspnea on exertion , edema, syncope Respiratory: Denies: cough, dyspnea Gastrointestinal: Reports: abdominal pain, nausea, vomiting, diarrhea. Denies: constipation, hematemesis, melena, hematochezia Genitourinary: Denies: urgency, dysuria Musculoskeletal: Denies: back pain, neck pain Integumentary: Denies: rash, abrasion Neurological: Denies: headache, weakness Past Medical History - Past Medical History Attestation: Yes The following information was validated with the patient. 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 She is tachycardic. Otherwise vitals are normal. HEAD: Normocephalic; atraumatic. Mucous membranes are dry. EYES: PERRL, no scleral icterus. NOSE: The nose is normal in appearance without rhinorrhea RESP: Normal chest excursion with respiration; breath sounds clear and equal bilaterally; no wheezes, rhonchi, or rales CARD: Regular rhythm, without murmurs, rub or gallop ABD: Non-distended; non-tender, soft,without rigidity, rebound or guarding SKIN: Normal for age and race; warm and dry; no apparent lesions - General Limitations: no limitations General appearance: alert Course Course Narrative: Patient's symptoms did not improve with the initial medication of Zofran she is giving Phenergan for her. On reexam after Phenergan patient does appear to have some epigastric abdominal tenderness and giving her multiple episodes of nausea and vomiting associated with chest pain and abdominal tenderness she will undergo CT of the abdomen and pelvis with IV contrast to evaluate for obstructing process. She also be evaluated for cardiac ideology of her pain with a chest x-ray, troponin and EKG. - Reevaluation(s) Reevaluation #1: Patient is hyponatremic at 123 and also examining signs of a KI the creatinine of 1.7 which is new for her. Attributed this to her recent episodes of nausea vomiting and diarrhea. She is currently receiving 1 L of fluids. The chest x- ray was normal. Her EKG was sinus rhythm at a rate of 87. Plan at this time is to admit the patient for nausea, vomiting, diarrhea and electrolyte derangements. Time: 06:22 Vital Signs Temperature 97.6 F 02/17/18 04:22 Pulse Rate 100 02/17/18 04:22 Respiratory Rate 20 02/17/18 04:22 Blood Pressure 104/69 02/17/18 04:22 O2 Sat by Pulse Oximetry 98 02/17/18 04:22 Temperature 98.0 F 02/17/18 15:40 Pulse Rate 79 02/17/18 15:40 Respiratory Rate 22 02/17/18 15:40 Blood Pressure 129/83 02/17/18 11:26 O2 Sat by Pulse Oximetry 100 02/17/18 15:40 Oxygen Delivery Oxygen Delivery Nasal Cannula Medical Decision Making - Medical Records Medical records reviewed: Yes I reviewed the patient's medical records. - Lab Data Lab results reviewed: Yes I reviewed the patient's lab results. Result diagrams: 02/17/18 04:41 02/17/18 04:41 Lab Results 02/17/18 02/17/18 02/17/18 Range/Units 04:41 04:41 10:42 WBC 12.3 H (4.3-11.1) K/mcL RBC 3.82 (3.82-4.97) M/mcL Hgb 11.5 (11.5-15.4) g/dL Hct 32.8 L (35.3-44.9) % MCV 85.9 (83.0-100.0) fL MCH 30.1 (28.0-33.3) pg MCHC 35.1 (31.6-35.5) g/dL RDW 14.6 H (11.5-14.5) % Plt Count 198 (140-400) K/mcL MPV 11.4 (9.4-12.4) fL Immature Gran % 0.8 (0-4) % Seg Neutrophils % 74.3 % Lymphocytes % 14.6 % Monocytes % 8.6 % Eosinophils % 1.5 % Basophils % 0.2 % Neutrophils # 9.1 H (1.6-8.9) K/mcL Lymphocytes # 1.8 (0.6-4.6) K/mcL Monocytes # 1.1 (0.0-1.3) K/mcL Eosinophils # 0.2 (0.0-0.6) K/mcL Basophils # 0.0 (0.0-0.2) K/mcL Sodium 123 L (136-145) mEq/L Potassium 3.8 (3.5-5.1) mEq/L Chloride 90 L (98-107) mEq/L Carbon Dioxide 20 L (23-29) mEq/L BUN 22 H (6-20) mg/dL Creatinine 1.72 H (0.60-1.20) mg/dL Est GFR ( Amer) 37 L (> 60) Est GFR (Non-Af Amer) 30 L (> 60) BUN/Creatinine Ratio 13 (6-26) Glucose 131 H (70-105) mg/dL Calculated Osmolality 261 L (280-300) Calcium 8.7 (8.6-10.3) mg/dL Troponin I < 0.03 < 0.03 (< 0.04) ng/mL TSH 8.319 H (0.340-5.600) mcIU/mL Urine Color (Yellow) Urine Clarity (Clear) Urine pH (5.0-8.0) pH Units Ur Specific [place] (1.010-1.025) Urine Protein (Neg-Trace) mg/dL Urine Glucose (UA) (Normal) mg/dL Urine Ketones (Negative) mg/dL Urine Blood (Negative) Urine Nitrite (Negative) Urine Bilirubin (Negative) Urine Urobilinogen (Normal) mg/dL Ur Leukocyte Esterase (Negative) Urine Microscopic RBC (0-3) per hpf Urine Microscopic WBC (0-3) per hpf Ur Squamous Epith Cells (None-Few) per lpf Urine Bacteria (None-Few) per hpf Hyaline Casts (None-Few) per lpf Ur Culture Indicated? (NO) 02/17/18 Range/Units 15:50 WBC (4.3-11.1) K/mcL RBC (3.82-4.97) M/mcL Hgb (11.5-15.4) g/dL Hct (35.3-44.9) % MCV (83.0-100.0) fL MCH (28.0-33.3) pg MCHC (31.6-35.5) g/dL RDW (11.5-14.5) % Plt Count (140-400) K/mcL MPV (9.4-12.4) fL Immature Gran % (0-4) % Seg Neutrophils % % Lymphocytes % % Monocytes % % Eosinophils % % Basophils % % Neutrophils # (1.6-8.9) K/mcL Lymphocytes # (0.6-4.6) K/mcL Monocytes # (0.0-1.3) K/mcL Eosinophils # (0.0-0.6) K/mcL Basophils # (0.0-0.2) K/mcL Sodium (136-145) mEq/L Potassium (3.5-5.1) mEq/L Chloride (98-107) mEq/L Carbon Dioxide (23-29) mEq/L BUN (6-20) mg/dL Creatinine (0.60-1.20) mg/dL Est GFR ( Amer) (> 60) Est GFR (Non-Af Amer) (> 60) BUN/Creatinine Ratio (6-26) Glucose (70-105) mg/dL Calculated Osmolality (280-300) Calcium (8.6-10.3) mg/dL Troponin I (< 0.04) ng/mL TSH (0.340-5.600) mcIU/mL Urine Color Yellow (Yellow) Urine Clarity Cloudy A (Clear) Urine pH 6.0 (5.0-8.0) pH Units Ur Specific [place] 1.012 (1.010-1.025) Urine Protein Negative (Neg-Trace) mg/dL Urine Glucose (UA) Normal (Normal) mg/dL Urine Ketones Negative (Negative) mg/dL Urine Blood Negative (Negative) Urine Nitrite Negative (Negative) Urine Bilirubin Negative (Negative) Urine Urobilinogen Normal (Normal) mg/dL Ur Leukocyte Esterase Small H (Negative) Urine Microscopic RBC 5-15 H (0-3) per hpf Urine Microscopic WBC 0-3 (0-3) per hpf Ur Squamous Epith Cells Many H (None-Few) per lpf Urine Bacteria None Seen (None-Few) per hpf Hyaline Casts None Seen (None-Few) per lpf Ur Culture Indicated? NO. A (NO) - Radiology Data Radiology results reviewed: Yes I reviewed the patient's radiology results. Chest X-Ray 02/17/18 04:27 IMPRESSION: No acute findings. D/ / Aba Ayon / Aba Ayon Interpreting Provider: Aba Ayon Abdomen/Pelvis CT 02/17/18 04:53 IMPRESSION: No acute abdominopelvic findings. Unchanged indeterminate left renal lesion. Recommend further evaluation with nonemergent renal ultrasound. D/ / Aba Ayon / Aba Ayon Interpreting Provider: Aba Ayon - EKG Data EKG #1 EKG attestation: Yes I reviewed and interpreted this EKG. EKG results narrative: EKG done at 4:30 shows sinus rhythm at a rate of 87 bpm. Normal axis. No signs of ischemia.
[2018-02-17 06:53] LABS: Thyroid Stimulating Hormone 8.319 mcIU/mL (0.340-5.600)
[2018-02-17] MEDS ORDERED: 0.9 % Sodium Chloride 1,000 ML IVC SCH (07:45)
[2018-02-17] MEDS ORDERED: Naloxone 0.4 MG/ML INJ IVP PRN (08:41)
[2018-02-17] MEDS ORDERED: Acetaminophen 325 MG TABLET PO PRN (08:41)
--- NOTE | 2018-02-17 09:08 | Internal Med History&Physical ---
Date of Encounter: 02/17/18 Time of Encounter: 09:00 Internal Medicine - H&P: HPI Chief complaint: Chest pain, nausea and vomiting Admitted From: Emergency Dept Plans for Post Hospital Care: Home History of present illness: Ms. Copeland is a 57 year old female patient with a history of CHF, COPD, hyperlipidemia, thyroid disease who presented to the ER with complaints of chest pain, nausea and vomiting. Presently the patient is very somnolent and when she wakes up she keeps repeating "I want to go home". She is unable to provide proper history at this time so history has been obtained through review of ED records. Patient was apparently complaining of pain which started at around 2 PM yesterday and was across her lower ribs bilaterally. It was described as a pressure-like pain. Her symptoms had then resolved in an hour. She woke up earlier this morning and was having significant nausea with multiple episodes of nonbloody emesis. She was also having some diarrhea. As such she came to the ER. In the ER she received Zofran and Phenergan and she has been somnolent since. Past Med Surg Social Fam HX - Past Medical History Source: old records reviewed Medical history: cancer, CHF, COPD, GERD, hyperlipidemia, thyroid disease, other Additional medical history: MS Psychiatric history: anxiety, depression, previous psychiatric hospitalization - Past Surgical History Surgical History: appendectomy, breast surgery, knee replacement, other Additional surgical history: Breast reduction - Social History Smoking Status: Current every day smoker Smokeless Tobacco Status: No Alcohol use: none Drug use: marijuana - Family History Brother Family Member Ethnicity: Non- Living Status: Still Living Sister Family Member Ethnicity: Non- Living Status: Still Living Father Family Member Ethnicity: Non- Living Status: Hx Family Cardiac Disorders: Yes (CAD) Hx Family Respiratory Disorders: Yes (COPD) Hx Family Cancer: No Hx Family GI Disorders: No Hx Family Endocrine Disorder: No Hx Family Neuromuscular Disorders: No Hx Family Neurologic Disorders: No Hx Family HEENT Disorders: No Hx Family Autoimmune Disorders: No Mother Family Member Ethnicity: Non- Living Status: Hx Family Cardiac Disorders: No Hx Family Respiratory Disorders: No Hx Family Cancer: No Hx Family GI Disorders: No Hx Family Endocrine Disorder: No Hx Family Neuromuscular Disorders: No Hx Family Neurologic Disorders: No Hx Family HEENT Disorders: No Hx Family Autoimmune Disorders: No Internal Medicine - H&P: Meds Atorvastatin [Lipitor] 40 mg PO HS 04/10/15 [History] Sertraline [Zoloft] 100 mg PO DAILY 04/10/15 [History] Levothyroxine [Synthroid] 112 mcg PO QAM 09/01/16 [History] Potassium Chloride [Klor-Con 10] 20 meq PO TID 09/01/16 [History] Furosemide [Lasix] 40 mg PO DAILY #30 07/17/17 [Rx] Pantoprazole Sodium [Protonix] 40 mg PO BID #60 tablet. 07/17/17 [Rx] BuPROPion SR (12 HR) [Wellbutrin SR] 150 mg PO BID 07/26/17 [History] Buspirone HCl [Buspar] 10 mg PO BID 09/19/17 [History] Famotidine [Heartburn Prevention] 20 mg PO DAILY 09/19/17 [History] Fluticasone Propionate [Flovent Hfa] 1 puff IH BID 09/19/17 [History] Nystatin POWDER [Nystop] 1 appl TP BID 09/19/17 [History] Melatonin/Pyridoxine HCl (B6) [Melatonin 5 mg Tablet] 5 mg PO HS PRN 09/23/17 [ History] Aspirin Enteric Coated [Aspirin EC] 325 mg PO BID #20 tablet. 10/13/17 [Rx] Ibuprofen [Motrin] 600 mg PO BID PRN 10/29/17 [History] Rifampin [Rifadin] 300 mg PO BID #84 capsule 11/08/17 [Rx] Lisinopril-HCTZ 10-12.5 [Prinzide 10-12.5] 1 tab PO DAILY 12/29/17 [History] Diphenoxylate/Atropine [Lomotil 2.5 mg/0.025 mg] 1 tab PO QID PRN 15 Days #60 tablet 02/01/18 [Rx] Na Phos,M-B/Na Phos,Di-Ba [Fleet Enema Extra] 230 ml RC DAILY #2 enema 02/15/18 [Rx] Ondansetron HCl [Zofran] 4 mg PO TID #15 tablet 02/15/18 [Rx] 3 Allergy/AdvReac Type Severity Reaction Status Date / Time vancomycin Allergy Itching Verified 02/17/18 08:00 ROS unobtainable: due to mental status All Systems PM: A 10-system review of systems was performed and is negative for pertinent findings except as documented above in the HPI. - Cardiovascular Cardiovascular ROS IM: chest pain - Gastrointestinal Gastrointestinal: nausea, vomiting - Constitutional Vitals: Temp Pulse Resp BP Pulse Ox 97.5 F L 73 16 96/63 100 02/17/18 08:48 02/17/18 08:48 02/17/18 08:48 02/17/18 08:48 02/17/18 08:48 General appearance: Present: A&O X 0. Absent: answers questions appropriately Exam: Patient is very somnolent and is not answering questions appropriately. - Respiratory Respiratory exam: Present: CTAB. Absent: accessory muscle use, rales, rhonchi, wheezes - Cardiovascular Cardiovascular exam: Present: RRR, +S1, +S2. Absent: diastolic murmur, gallop, rubs, systolic murmur - GI/Abdominal GI/Abdominal exam: Present: normal bowel sounds, soft, no peritoneal signs. Absent: distended, tenderness - Extremities Exam Extremities exam: Present: pedal edema, warm, radial pulses palpable and symmetrical. Absent: calf tenderness, cyanotic - Neurological Exam Neurological exam: Absent: facial droop Additional comments: Unable to perform complete neuro exam due to patient's mental status Internal Med - H&P Results - Labs CBC & Chem 7: 02/17/18 04:41 02/17/18 04:41 - EKG Data -: EKG Interpreted by Myself EKG shows normal: sinus rhythm - Impressions Impressions Chest X-Ray 02/17/18 04:27 IMPRESSION: No acute findings. D/ / Aba Ayon / Aba Ayon Interpreting Provider: Aba Ayon Abdomen/Pelvis CT 02/17/18 04:53 IMPRESSION: No acute abdominopelvic findings. Unchanged indeterminate left renal lesion. Recommend further evaluation with nonemergent renal ultrasound. D/ / Aba Ayon / Aba Ayon Interpreting Provider: Aba Ayon - Assessment and plan (1) KRISHNA (acute kidney injury) Current Visit: Yes Status: Acute Assessment and plan: Likely related to nausea vomiting and diarrhea. Gentle hydration. Monitor vital signs closely. Follow renal function. IV hydration. Moderate risk for complications (2) Chest pain Current Visit: Yes Status: Acute Assessment and plan: Patient had reportedly complained of chest pain that began yesterday and resolved in an hour. Unclear if she currently has it. Will trend troponins. She had a 2-D echocardiogram done in October which showed normal ejection fraction of 60% with normal LV size and function. Qualifiers: Chest pain type: intercostal pain Qualified Code(s): R07.82 - Intercostal pain (3) Nausea and vomiting Current Visit: Yes Status: Acute Assessment and plan: Intractable nausea and vomiting. Now improved after she received Phenergan and Zofran at home. However she is very somnolent. We will treat symptomatically. Qualifiers: Vomiting type: unspecified Vomiting Intractability: intractable Qualified Code(s): R11.2 - Nausea with vomiting, unspecified (4) Altered mental status Current Visit: Yes Status: Acute Assessment and plan: Likely related to medication she received in the ER. If symptoms do not improve , we will get head CT. Monitor neuro function. Qualifiers: Altered mental status type: somnolence Qualified Code(s): R40.0 - Somnolence (5) CHF (congestive heart failure) Current Visit: Yes Status: Chronic Assessment and plan: Reported history of congestive heart failure. Last 2-D echo shows EF of 60% with normal LV size and function. Currently has trace pitting edema. However she is dehydrated and in acute kidney injury. Will hold diuretics. Gentle IV hydration. Qualifiers: Heart failure type: diastolic Heart failure chronicity: chronic Qualified Code(s): I50.32 - Chronic diastolic (congestive) heart failure - Time Spent With Patient Total time spent is greater than 50% in coordination of care (as documented) at patient's floor/unit and/or counseling patient:
[2018-02-17 11:32] VITALS: BP 129/83
[2018-02-17 16:15] LABS: Bilirubin,Urine Negative (Negative); Blood,Urine Negative (Negative); Clarity,Urine Cloudy (Clear); Color,Urine Yellow (Yellow); Glucose,Urine (UA) Normal (Normal); Ketones,Urine Negative (Negative); Leukocyte Esterase,Urine Small (Negative); Nitrite,Urine Negative (Negative); Protein,Urine Negative (Neg-Trace); Specific Gravity,Urine 1.012 (1.010-1.025); Urobilinogen,Urine Normal (Normal)
[2018-02-17 16:16] LABS: Bacteria,Urine None Seen per hpf (None-Few); Hyaline Casts,Urine None Seen per lpf (None-Few); Squamous Epithelial Cell,Urine Many per lpf (None-Few); WBC,Urine 0-3 per hpf (0-3)
[2018-02-17] MEDS ORDERED: Diphenoxylate/Atropine 1 TAB TABLET PO PRN (16:43)
--- NOTE | 2018-02-17 16:50 | Event Note ---
Date of Encounter: 02/17/18 Time of Encounter: 16:50 Patient has elevated TSH. Will check free T4 levels. Increase levothyroxine dosage to 125 g daily.
[2018-02-17] MEDS ORDERED: *HR* Heparin 5,000 UNIT/ML VIAL SQ SCH (18:00)
[2018-02-17] MEDS ORDERED: Gabapentin 300 MG CAPSULE PO SCH (21:00)
[2018-02-17] MEDS ORDERED: NON-FORMULARY MEDICATION 1 EACH EACH (Fluticasone Propionate [Flovent Hfa] 1 PUFF) IH SCH (21:00)
[2018-02-17] MEDS ORDERED: Aspirin Enteric Coated 325 MG Tablet PO SCH (21:00)
[2018-02-17] MEDS ORDERED: hydrOXYzine pamoate 25 MG CAPSULE PO SCH (21:00)
[2018-02-17] MEDS ORDERED: traZODone 50 MG TABLET PO SCH (21:00)
[2018-02-17] MEDS ORDERED: Budesonide/Formoterol 160/4.5 MDI IH SCH (22:00)
[2018-02-18] MEDS ORDERED: Famotidine 20 MG TABLET PO SCH (09:00)
== END 2018-02-17 18:20 | disposition left against medical advice (07) | DRG 683 ==
LOC: 2ANU 04:21 → EMEROO 04:21 → 2ANU 08:35
PROVIDERS: ADMIT Internal Medicine Nephrology; ATTEND Internal Medicine Nephrology

== ENCOUNTER 2018-05-20 01:41 | Observation (INO) ==
--- NOTE | 2018-05-20 01:57 | Emergency Department Note ---
Disposition Clinical Impression: Encephalopathy, KRISHNA (acute kidney injury), Hyponatremia, Multiple sclerosis Disposition: Admitted As Inpatient Condition: Fair Time of Disposition: 04:25 Neuro HPI - General Chief Complaint: ED Altered Mental Status Stated Complaint: AMS Time Seen by Provider: 05/20/18 01:42 Source: patient, EMS Mode of arrival: EMS Limitations: no limitations Nursing Notes Reviewed: Yes Vital Signs Reviewed: Yes - History of Present Illness HPI Narrative: 57-year-old female with history of multiple sclerosis presents to the emergency department after called EMS saying at 1:00 this evening he noticed that she was not acting normal complaining of her head feeling he was going to explode and she was mumbling speech. This is all coming from EMS personnel. EMS did not notice any stroke symptoms but she was mumbling and cooperative during the entire transport. Patient states that she feels like her head is going to explode she will says she has mild abdominal pain but feels like she has to defecate. She states that she does not know where she is she does not know her name. She is having difficulty following commands such as holding arms up as she keeps on trying to grab her head when asked to do so. Patient has never had a stroke before she has a have any other medical problems does not take any other medications other than for her MS. Patient is no other complaints today including no headache, blurry vision, neck pain, back pain, fevers, nausea, vomiting, chest pain, shortness of breath, abdominal pain, changes in bowel movements, pain with urination, pain or tingling of the arms or legs or generalized weakness. I called and spoke with patient's life partner Junior Zapata who said he was with the patient rajinder and they went to bed at around 11:00 this evening that was and she was last known well. She woke up all of a sudden at 01:00 complaining of the symptoms that 4 said to call EMS. - Related Data Home Medications: Home Medications Medication Instructions Recorded Confirmed Levothyroxine [Synthroid] 112 mcg PO QAM 09/01/16 02/17/18 Potassium Chloride [Klor-Con 10] 20 meq PO TID 09/01/16 02/17/18 Buspirone HCl [Buspar] 10 mg PO BID 09/19/17 02/17/18 Famotidine [Heartburn Prevention] 20 mg PO DAILY 09/19/17 02/17/18 Fluticasone Propionate [Flovent 1 puff IH BID 09/19/17 02/17/18 Hfa] Nystatin POWDER [Nystop] 1 appl TP BID 09/19/17 02/17/18 Ibuprofen [Motrin] 600 mg PO BID PRN 10/29/17 02/17/18 Lisinopril-HCTZ 10-12.5 [Prinzide 1 tab PO DAILY 12/29/17 02/17/18 10-12.5] Albuterol Sulfate [Ventolin Hfa] 2 puff IH BID 02/17/18 02/17/18 Amitriptyline [Elavil] 25 mg PO HS 02/17/18 02/17/18 Budesonide/Formoterol 160/4.5 2 puff IH BIDR 02/17/18 02/17/18 [Symbicort 160/4.5] Gabapentin [Neurontin] 300 mg PO BID 02/17/18 02/17/18 Trazodone HCl 300 mg PO HS 02/17/18 02/17/18 hydrOXYzine pamoate [HydrOXYzine 25 - 50 mg PO BID 02/17/18 02/17/18 Pamoate] Previous Rx's Medication Instructions Recorded Furosemide [Lasix] 40 mg PO DAILY #30 07/17/17 Pantoprazole Sodium [Protonix] 40 mg PO BID #60 tablet. 07/17/17 Aspirin Enteric Coated [Aspirin EC] 325 mg PO BID #20 tablet. 10/13/17 Diphenoxylate/Atropine [Lomotil 1 tab PO QID PRN 15 Days #60 tablet 02/27/18 2.5 mg/0.025 mg] Allergies/Adverse Reactions: Allergies Allergy/AdvReac Type Severity Reaction Status Date / Time vancomycin Allergy Itching Verified 02/17/18 16:19 All systems ED: reviewed and negative except as stated. Review of Systems: As Per HPI Past Medical History - Past Medical History Attestation: Yes The following information was validated with the patient. 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 - Social History Smoking Status: Current every day smoker Smokeless Tobacco Status: No Alcohol use: Reports: none Drug use: Reports: marijuana Physical Exam - General Limitations: no limitations General appearance: anxious - Head Head exam: atraumatic, normocephalic, normal inspection - Eye Eye exam: Present: normal appearance, PERRL, EOMI - ENT ENT exam: normal exam, normal oropharynx, mucous membranes moist - Neck Neck exam: Present: normal inspection, full ROM, trachea midline - Chest Chest inspection: Present: normal inspection, symmetric chest wall rise - Respiratory Respiratory exam: Present: normal lung sounds bilaterally - Cardiovascular Cardiovascular exam: Present: regular rate, normal rhythm, normal heart sounds - Abdominal Exam Abdominal exam: Present: soft, Non-Tender, normal bowel sounds. Absent: tenderness, distention, guarding, rebound, rigidity - Neurological Exam Neurological exam: Present: alert - Expanded Neurological Exam Patient oriented to: Present: place. Absent: person, time Speech: Present: fluid speech Cranial nerves: EOM function (II, III, IV, ): Normal, facial sensation (V): Normal, facial palsy (VII): Abnormal Left, spinal accessory function (XI): Normal, tongue deviation (XII): Normal Cerebellar function: finger to nose: Normal, heel to hughes: Normal Motor strength - LUE: 4/5 Motor strength - RUE: 4/5 Motor strength - LLE: 2/5 Motor strength - RLE: 2/5 Upper motor neuron exam: margaret neglect: Absent bilaterally, pronator drift: Absent bilaterally Sensory exam upper extremity: light touch: Normal Sensory exam lower extremity: light touch: Normal Coma Scale Eye Opening: Spontaneous Coma Scale Motor Response: Obeys Commands Coma Scale Verbal Response: Confused Coma Scale Total: 14 - Skin Skin exam: Present: warm, dry, intact, normal color Course Course Narrative: Once patient came and we evaluated her we decided to call a stroke alert for patient to be evaluated by a neurologist and get a stat head CT done. I got an NIH of 8. See my note below for which she was positive for we have basic labs including CBC, BMP, coags, urinalysis. We will await recommendations from neurology at this time. - Reevaluation(s) Reevaluation #1: [facility] called me at [address] head results which are stable and no acute changes. All of them are chronic small vessel disease. Time: 02:18 Reevaluation #2: Dr. Oliva the [facility] neurologist evaluated the patient on the patella stroke monitor. They recommended against TPA and recommended admission for MRI and further workup due to most likely encephalopathy. Time: 02:42 Vital Signs Temperature 98.3 F 05/20/18 01:45 Pulse Rate 113 05/20/18 01:45 Respiratory Rate 20 05/20/18 01:45 Blood Pressure 119/72 05/20/18 01:45 O2 Sat by Pulse Oximetry 100 05/20/18 01:45 Temperature 97.4 F L 05/20/18 04:35 Pulse Rate 69 05/20/18 04:35 Respiratory Rate 17 05/20/18 04:35 Blood Pressure 121/67 05/20/18 04:35 O2 Sat by Pulse Oximetry 100 05/20/18 04:35 Oxygen Delivery Oxygen Delivery Nasal Cannula Neuro Symptoms/Deficit - MDM Narrative Medical decision making narrative: Patient does have history of MS. When she presented here she was very confused unable to follow commands and had slurred speech so we decided to call a stroke alert. I did get an NIH of 8 when I originally saw her. The CT was called back to me as being negative. At this time I did hear from family that her last known well was at 2300. Due to this I called [facility] neurologist who then saw the patient. After seeing the patient they said this is probably encephalopathy and did not recommend TPA at this time. As there were no focal deficits. I did give patient one dose of 125 mg Solu-Medrol. As this could be an MS exacerbation. Neurologist did recommend MRI to be done. They did offer transfer up to their facility but patient said that she wanted to stay down here. Patient's weakness has gotten better she had a lot more strength in her lower limbs. Patient did have an KRISHNA based on labs were no other acute lab abnormalities. I did give patient 1 L of normal saline to help with that. I did speak with the hospitalist Dr. Donaldson who agreed to admit the patient to their service. They accepted the patient to their service. Patient is stable at this time. Head CT 05/20/18 01:52 IMPRESSION: Grossly stable white matter disease. There is no acute hemorrhage or definite evidence for acute ischemia. Stroke alert results were called by Dr. Guicho Sears MD to Josr Fields on 05/20/2018 at 02:19. D/ / Guicho Sears MD / Guicho Sears MD Interpreting Provider: Guicho Sears MD - Medical Records Medical records reviewed: Yes I reviewed the patient's medical records. - Lab Data Lab results reviewed: Yes I reviewed the patient's lab results. Result diagrams: 05/20/18 01:55 05/20/18 01:55 Lab Results 05/20/18 05/20/18 05/20/18 Range/Units 01:55 01:55 01:55 WBC 9.7 (4.3-11.1) K/mcL RBC 3.83 (3.82-4.97) M/mcL Hgb 11.5 (11.5-15.4) g/dL Hct 33.9 L (35.3-44.9) % MCV 88.5 (83.0-100.0) fL MCH 30.0 (28.0-33.3) pg MCHC 33.9 (31.6-35.5) g/dL RDW 13.8 (11.5-14.5) % Plt Count 150 (140-400) K/mcL MPV 10.5 (9.4-12.4) fL Immature Gran % 0.4 (0-4) % Seg Neutrophils % 78.8 % Lymphocytes % 10.4 % Monocytes % 6.0 % Eosinophils % 3.9 % Basophils % 0.5 % Neutrophils # 7.6 (1.6-8.9) K/mcL Lymphocytes # 1.0 (0.6-4.6) K/mcL Monocytes # 0.6 (0.0-1.3) K/mcL Eosinophils # 0.4 (0.0-0.6) K/mcL Basophils # 0.1 (0.0-0.2) K/mcL PT 10.7 (9.4-12.1) Seconds INR 1.0 APTT 29.3 (26.0-36.0) Seconds Sodium 127 L (136-145) mEq/L Potassium 4.5 (3.5-5.1) mEq/L Chloride 96 L (98-107) mEq/L Carbon Dioxide 25 (23-29) mEq/L BUN 28 H (6-20) mg/dL Creatinine 1.54 H (0.60-1.20) mg/dL Est GFR ( Amer) 42 L (> 60) Est GFR (Non-Af Amer) 35 L (> 60) BUN/Creatinine Ratio 18 (6-26) Glucose 99 (70-105) mg/dL Calculated Osmolality 270 L (280-300) Calcium 9.4 (8.6-10.3) mg/dL Creatine Kinase 45 (30-223) Units/L Troponin I < 0.03 (< 0.04) ng/mL Urine Color (Yellow) Urine Clarity (Clear) Urine pH (5.0-8.0) pH Units Ur Specific [place] (1.010-1.025) Urine Protein (Neg-Trace) mg/dL Urine Glucose (UA) (Normal) mg/dL Urine Ketones (Negative) mg/dL Urine Blood (Negative) Urine Nitrite (Negative) Urine Bilirubin (Negative) Urine Urobilinogen (Normal) mg/dL Ur Leukocyte Esterase (Negative) Urine Microscopic RBC (0-3) per hpf Urine Microscopic WBC (0-3) per hpf Ur Squamous Epith Cells (None-Few) per lpf Urine Bacteria (None-Few) per hpf Hyaline Casts (None-Few) per lpf Ur Culture Indicated? (NO) Ethyl Alcohol < 10 (Less than 10) mg/dL 05/20/18 Range/Units 03:20 WBC (4.3-11.1) K/mcL RBC (3.82-4.97) M/mcL Hgb (11.5-15.4) g/dL Hct (35.3-44.9) % MCV (83.0-100.0) fL MCH (28.0-33.3) pg MCHC (31.6-35.5) g/dL RDW (11.5-14.5) % Plt Count (140-400) K/mcL MPV (9.4-12.4) fL Immature Gran % (0-4) % Seg Neutrophils % % Lymphocytes % % Monocytes % % Eosinophils % % Basophils % % Neutrophils # (1.6-8.9) K/mcL Lymphocytes # (0.6-4.6) K/mcL Monocytes # (0.0-1.3) K/mcL Eosinophils # (0.0-0.6) K/mcL Basophils # (0.0-0.2) K/mcL PT (9.4-12.1) Seconds INR APTT (26.0-36.0) Seconds Sodium (136-145) mEq/L Potassium (3.5-5.1) mEq/L Chloride (98-107) mEq/L Carbon Dioxide (23-29) mEq/L BUN (6-20) mg/dL Creatinine (0.60-1.20) mg/dL Est GFR ( Amer) (> 60) Est GFR (Non-Af Amer) (> 60) BUN/Creatinine Ratio (6-26) Glucose (70-105) mg/dL Calculated Osmolality (280-300) Calcium (8.6-10.3) mg/dL Creatine Kinase (30-223) Units/L Troponin I (< 0.04) ng/mL Urine Color Yellow (Yellow) Urine Clarity Clear (Clear) Urine pH 5.0 (5.0-8.0) pH Units Ur Specific [place] 1.020 (1.010-1.025) Urine Protein Negative (Neg-Trace) mg/dL Urine Glucose (UA) Normal (Normal) mg/dL Urine Ketones Negative (Negative) mg/dL Urine Blood Negative (Negative) Urine Nitrite Positive A (Negative) Urine Bilirubin Negative (Negative) Urine Urobilinogen Normal (Normal) mg/dL Ur Leukocyte Esterase Small H (Negative) Urine Microscopic RBC 0-3 (0-3) per hpf Urine Microscopic WBC 3-5 H (0-3) per hpf Ur Squamous Epith Cells Many H (None-Few) per lpf Urine Bacteria Moderate H (None-Few) per hpf Hyaline Casts None Seen (None-Few) per lpf Ur Culture Indicated? NO. A (NO) Ethyl Alcohol (Less than 10) mg/dL - Radiology Data Radiology results reviewed: Yes I reviewed the patient's radiology results. - EKG Data EKG attestation: Yes I reviewed and interpreted this EKG. EKG results narrative: EKG done at 0 154 review myself and the attending shows sinus rhythm at a rate of 75, FL able to 100, QRS 1:15, QTC 461 normal axis. There is no acute ST changes no acute T-wave changes no other signs of ischemia. No heart block, hypertrophy, heart strain. No WPW/Brugada/HOCM. EKG is unchanged when compared with old one done 02/17/18. NIH Stroke Scale - Level of Consciousness LOC: Alert - LOC Questions LOC Questions: Answers one correctly - LOC Commands LOC Commands: Performs one correctly - Best Gaze Best Gaze: Normal - Visual Visual: No visual loss - Facial Palsy Facial Palsy: Minor asymmetry on smiling, flattened nasolabial fold - Motor Arms Motor Arm-Left: No drift for 10 seconds Motor Arm-Right: No drift for 10 seconds - Motor Legs Motor Leg-Left: Some effort against gravity, limb drifts to bed Motor Leg-Right: Some effort against gravity, limb drifts to bed - Limb Ataxia Limb Ataxia: Normal, No Ataxia - Sensory Sensory: Normal - Best Language Best Language: No aphasia - Dysarthria Dysarthria: Mild, slurs some words - Extinction and Inattention Extinction and Inattention: Normal - NIHSS Total Score NIHSS Total Score: 8
[2018-05-20 02:02] LABS: Basophils # 0.1 K/mcL (0.0-0.2); Basophils % 0.5 %; Eosinophils # 0.4 K/mcL (0.0-0.6); Eosinophils % 3.9 %; Hematocrit 33.9 % (35.3-44.9); Hemoglobin 11.5 g/dL (11.5-15.4); Immature Granulocytes % 0.4 % (0-4); Lymphocytes % 10.4 %; Mean Corpuscular HGB Conc 33.9 g/dL (31.6-35.5); Mean Corpuscular Volume 88.5 fL (83.0-100.0); Mean Platelet Volume 10.5 fL (9.4-12.4); Monocytes # 0.6 K/mcL (0.0-1.3); Neutrophils # 7.6 K/mcL (1.6-8.9); Platelet Count 150 K/mcL (140-400); Red Blood Count 3.83 M/mcL (3.82-4.97); Red Cell Distribution Width 13.8 % (11.5-14.5); Segmented Neutrophils % 78.8 %
[2018-05-20 02:08] LABS: Prothrombin Time 10.7 Seconds (9.4-12.1)
[2018-05-20 02:10] LABS: Activated Partial Thrombo Time 29.3 Seconds (26.0-36.0)
[2018-05-20 02:28] LABS: BUN/Creatinine Ratio 18 (6-26); Blood Urea Nitrogen 28 mg/dL (6-20); Calcium 9.4 mg/dL (8.6-10.3); Carbon Dioxide 25 mEq/L (23-29); Chloride 96 mEq/L (98-107); Creatine Kinase 45 Units/L (30-223); Ethanol < 10 mg/dL (Less than 10); Glucose 99 mg/dL (70-105); Osmolality,Calculated 270 (280-300); Potassium 4.5 mEq/L (3.5-5.1); Sodium 127 mEq/L (136-145); eGFR For Non-African Americans 35 (> 60)
[2018-05-20 02:29] LABS: Troponin I < 0.03 ng/mL (< 0.04)
[2018-05-20] MEDS ORDERED: methylPREDNISolone 125 MG/2 ML VIAL IVP ONE (02:43)
[2018-05-20] MEDS ORDERED: 0.9 % Sodium Chloride 1,000 ML IVC ONE (02:54)
--- NOTE | 2018-05-20 03:01 | Emergency Department Note ---
Disposition Clinical Impression: Encephalopathy, KRISHNA (acute kidney injury), Hyponatremia, Multiple sclerosis Disposition: Admitted As Inpatient Condition: Fair General Adult HPI - General Chief complaint: ED Altered Mental Status Stated complaint: AMS Time Seen by Provider: 05/20/18 01:42 Source: patient, EMS Mode of arrival: EMS Limitations: no limitations Nursing Notes Reviewed: Yes Vital Signs Reviewed: Yes - History of Present Illness Pain Scale: 5 - Related Data Home Medications Medication Instructions Recorded Confirmed Levothyroxine [Synthroid] 112 mcg PO QAM 09/01/16 02/17/18 Potassium Chloride [Klor-Con 10] 20 meq PO TID 09/01/16 02/17/18 Buspirone HCl [Buspar] 10 mg PO BID 09/19/17 02/17/18 Famotidine [Heartburn Prevention] 20 mg PO DAILY 09/19/17 02/17/18 Fluticasone Propionate [Flovent 1 puff IH BID 09/19/17 02/17/18 Hfa] Nystatin POWDER [Nystop] 1 appl TP BID 09/19/17 02/17/18 Ibuprofen [Motrin] 600 mg PO BID PRN 10/29/17 02/17/18 Lisinopril-HCTZ 10-12.5 [Prinzide 1 tab PO DAILY 12/29/17 02/17/18 10-12.5] Albuterol Sulfate [Ventolin Hfa] 2 puff IH BID 02/17/18 02/17/18 Amitriptyline [Elavil] 25 mg PO HS 02/17/18 02/17/18 Budesonide/Formoterol 160/4.5 2 puff IH BIDR 02/17/18 02/17/18 [Symbicort 160/4.5] Gabapentin [Neurontin] 300 mg PO BID 02/17/18 02/17/18 Trazodone HCl 300 mg PO HS 02/17/18 02/17/18 hydrOXYzine pamoate [HydrOXYzine 25 - 50 mg PO BID 02/17/18 02/17/18 Pamoate] Previous Rx's Medication Instructions Recorded Furosemide [Lasix] 40 mg PO DAILY #30 07/17/17 Pantoprazole Sodium [Protonix] 40 mg PO BID #60 tablet. 07/17/17 Aspirin Enteric Coated [Aspirin EC] 325 mg PO BID #20 tablet. 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 - Social History Smoking Status: Current every day smoker Smokeless Tobacco Status: No Alcohol use: Reports: none Drug use: Reports: marijuana Physical Exam - General Limitations: no limitations General appearance: anxious Course Vital Signs Temperature 98.3 F 05/20/18 01:45 Pulse Rate 113 05/20/18 01:45 Respiratory Rate 20 05/20/18 01:45 Blood Pressure 119/72 05/20/18 01:45 O2 Sat by Pulse Oximetry 100 05/20/18 01:45 Temperature 97.4 F L 05/20/18 04:35 Pulse Rate 69 05/20/18 04:35 Respiratory Rate 17 05/20/18 04:35 Blood Pressure 121/67 05/20/18 04:35 O2 Sat by Pulse Oximetry 100 05/20/18 04:35 Oxygen Delivery Oxygen Delivery Nasal Cannula Medical Decision Making - Medical Records Medical records reviewed: Yes I reviewed the patient's medical records. - Lab Data Lab results reviewed: Yes I reviewed the patient's lab results. Result diagrams: 05/20/18 01:55 05/20/18 01:55 Lab Results 05/20/18 05/20/18 05/20/18 Range/Units 01:55 01:55 01:55 WBC 9.7 (4.3-11.1) K/mcL RBC 3.83 (3.82-4.97) M/mcL Hgb 11.5 (11.5-15.4) g/dL Hct 33.9 L (35.3-44.9) % MCV 88.5 (83.0-100.0) fL MCH 30.0 (28.0-33.3) pg MCHC 33.9 (31.6-35.5) g/dL RDW 13.8 (11.5-14.5) % Plt Count 150 (140-400) K/mcL MPV 10.5 (9.4-12.4) fL Immature Gran % 0.4 (0-4) % Seg Neutrophils % 78.8 % Lymphocytes % 10.4 % Monocytes % 6.0 % Eosinophils % 3.9 % Basophils % 0.5 % Neutrophils # 7.6 (1.6-8.9) K/mcL Lymphocytes # 1.0 (0.6-4.6) K/mcL Monocytes # 0.6 (0.0-1.3) K/mcL Eosinophils # 0.4 (0.0-0.6) K/mcL Basophils # 0.1 (0.0-0.2) K/mcL PT 10.7 (9.4-12.1) Seconds INR 1.0 APTT 29.3 (26.0-36.0) Seconds Sodium 127 L (136-145) mEq/L Potassium 4.5 (3.5-5.1) mEq/L Chloride 96 L (98-107) mEq/L Carbon Dioxide 25 (23-29) mEq/L BUN 28 H (6-20) mg/dL Creatinine 1.54 H (0.60-1.20) mg/dL Est GFR ( Amer) 42 L (> 60) Est GFR (Non-Af Amer) 35 L (> 60) BUN/Creatinine Ratio 18 (6-26) Glucose 99 (70-105) mg/dL Calculated Osmolality 270 L (280-300) Calcium 9.4 (8.6-10.3) mg/dL Creatine Kinase 45 (30-223) Units/L Troponin I < 0.03 (< 0.04) ng/mL Urine Color (Yellow) Urine Clarity (Clear) Urine pH (5.0-8.0) pH Units Ur Specific [place] (1.010-1.025) Urine Protein (Neg-Trace) mg/dL Urine Glucose (UA) (Normal) mg/dL Urine Ketones (Negative) mg/dL Urine Blood (Negative) Urine Nitrite (Negative) Urine Bilirubin (Negative) Urine Urobilinogen (Normal) mg/dL Ur Leukocyte Esterase (Negative) Urine Microscopic RBC (0-3) per hpf Urine Microscopic WBC (0-3) per hpf Ur Squamous Epith Cells (None-Few) per lpf Urine Bacteria (None-Few) per hpf Hyaline Casts (None-Few) per lpf Ur Culture Indicated? (NO) Ethyl Alcohol < 10 (Less than 10) mg/dL 05/20/18 Range/Units 03:20 WBC (4.3-11.1) K/mcL RBC (3.82-4.97) M/mcL Hgb (11.5-15.4) g/dL Hct (35.3-44.9) % MCV (83.0-100.0) fL MCH (28.0-33.3) pg MCHC (31.6-35.5) g/dL RDW (11.5-14.5) % Plt Count (140-400) K/mcL MPV (9.4-12.4) fL Immature Gran % (0-4) % Seg Neutrophils % % Lymphocytes % % Monocytes % % Eosinophils % % Basophils % % Neutrophils # (1.6-8.9) K/mcL Lymphocytes # (0.6-4.6) K/mcL Monocytes # (0.0-1.3) K/mcL Eosinophils # (0.0-0.6) K/mcL Basophils # (0.0-0.2) K/mcL PT (9.4-12.1) Seconds INR APTT (26.0-36.0) Seconds Sodium (136-145) mEq/L Potassium (3.5-5.1) mEq/L Chloride (98-107) mEq/L Carbon Dioxide (23-29) mEq/L BUN (6-20) mg/dL Creatinine (0.60-1.20) mg/dL Est GFR ( Amer) (> 60) Est GFR (Non-Af Amer) (> 60) BUN/Creatinine Ratio (6-26) Glucose (70-105) mg/dL Calculated Osmolality (280-300) Calcium (8.6-10.3) mg/dL Creatine Kinase (30-223) Units/L Troponin I (< 0.04) ng/mL Urine Color Yellow (Yellow) Urine Clarity Clear (Clear) Urine pH 5.0 (5.0-8.0) pH Units Ur Specific [place] 1.020 (1.010-1.025) Urine Protein Negative (Neg-Trace) mg/dL Urine Glucose (UA) Normal (Normal) mg/dL Urine Ketones Negative (Negative) mg/dL Urine Blood Negative (Negative) Urine Nitrite Positive A (Negative) Urine Bilirubin Negative (Negative) Urine Urobilinogen Normal (Normal) mg/dL Ur Leukocyte Esterase Small H (Negative) Urine Microscopic RBC 0-3 (0-3) per hpf Urine Microscopic WBC 3-5 H (0-3) per hpf Ur Squamous Epith Cells Many H (None-Few) per lpf Urine Bacteria Moderate H (None-Few) per hpf Hyaline Casts None Seen (None-Few) per lpf Ur Culture Indicated? NO. A (NO) Ethyl Alcohol (Less than 10) mg/dL - Radiology Data Radiology results reviewed: Yes I reviewed the patient's radiology results. Head CT 05/20/18 01:52 IMPRESSION: Grossly stable white matter disease. There is no acute hemorrhage or definite evidence for acute ischemia. Stroke alert results were called by Dr. Guicho Sears MD to Josr Fields on 05/20/2018 at 02:19. D/ / Guicho Sears MD / Guicho Sears MD Interpreting Provider: Guicho Sears MD - EKG Data EKG #1 EKG attestation: Yes I reviewed and interpreted this EKG. EKG results narrative: EKG shows a normal sinus rhythm with ventricular rate is 75. No acute ST segment elevation or depression. No arrhythmia or ectopy. Incomplete right bundle branch block and low voltage in precordial leads. Critical Care Time Critical Care Time: Yes Total Critical Care Time: 40 Attestation: Critical care performed: Time is exclusive of separately billable procedures. Time includes: direct patient care, patient reassessment, coordination of patient care, interpretation of data (laboratory data, radiology data, and respiratory data), review of patient's medical records, medical consultation and documentation of patient care. Procedures included in critical care time: Procedures excluded from critical care time: Attestation Statement - Attestation Attestation: I, Srinath Mejia MD, personally evaluated this patient and discussed their management with the resident physician. I reviewed the resident's note and agree with the documented findings, medical decision making, and plan of care. 57-year-old female with history of MS presents to the emergency department by ambulance with a complaint of altered mental status. Patient last known well was 11 PM when she went to sleep and woke up at 1 AM feeling confused and dizzy and lightheaded. Trouble with her speech. Increased generalized weakness. She does admit to smoking some marijuana earlier tonight. She denies taking any other medications. Patient is very drowsy and sleepy but responds to verbal stimuli. She does answer some questions and follows some commands but not all. No obvious facial drooping. She has equal communications assistant bilaterally. She is unable to lift her legs off the bed due to weakness. She states that this is not her baseline weakness but she does always have weakness in her legs and has to ambulate with a walker. Her speech is sometimes cleared and sometimes slurred. She also has repetitive speech. She denies headache but states that her head is spinning and dizzy and feels like it is coming off. No cough or chest pain or shortness of breath. No fever. On examination patient is a well-developed obese female in no acute distress. She is very drowsy but responds to verbal stimuli. No cyanosis or diaphoresis. No gross focal neurological deficits. Equal creative art therapist strength bilaterally. Patient later was able to lift her legs off the stretcher and hold them for 5 seconds. Breath sounds are clear and equal bilaterally. Heart regular rate and rhythm. Abdomen is soft and nontender with normal bowel sounds. Labs reviewed. Head CT negative. A stroke alert was called and patient was evaluated by the stroke neurologist from [facility]. She recommended against TPA but did recommend hospital admission with further workup including an MRI of her brain with and without contrast in the morning. She felt that this was more consistent with an encephalopathy and probably a flare of her MS. The hospitalist, Dr. Franklin, was consulted and accepted admission of the patient.
[2018-05-20 03:42] LABS: Bilirubin,Urine Negative (Negative); Blood,Urine Negative (Negative); Clarity,Urine Clear (Clear); Color,Urine Yellow (Yellow); Glucose,Urine (UA) Normal (Normal); Ketones,Urine Negative (Negative); Leukocyte Esterase,Urine Small (Negative); Nitrite,Urine Positive (Negative); Protein,Urine Negative (Neg-Trace); Urobilinogen,Urine Normal (Normal)
[2018-05-20 03:43] LABS: Bacteria,Urine Moderate per hpf (None-Few); Hyaline Casts,Urine None Seen per lpf (None-Few); RBC,Urine 0-3 per hpf (0-3); Squamous Epithelial Cell,Urine Many per lpf (None-Few)
[2018-05-20] MEDS ORDERED: Naloxone 0.4 MG/ML INJ IVP PRN ×2 (04:25→07:23)
[2018-05-20] MEDS ORDERED: Ketorolac 15 MG/ML VIAL IVP PRN (04:25)
[2018-05-20] MEDS ORDERED: Gadolinium Contrast Agent (WT Based) IV PRN ×2 (04:39→12:30)
[2018-05-20] MEDS ORDERED: Albuterol 2.5 MG/3 ML NEBULIZER IH PRN (05:23)
--- NOTE | 2018-05-20 05:42 | Internal Med History&Physical ---
<Jeannette Blanca - Last Filed: 05/20/18 08:39> Date of Encounter: 05/20/18 Time of Encounter: 04:45 Internal Medicine - H&P: HPI History of present illness: Ms. Copeland is a 57 year old female Past Med Surg Social Fam HX - Past Medical History Medical history: cancer, CHF, COPD, GERD, hyperlipidemia, thyroid disease, other Additional medical history: MS Psychiatric history: anxiety, depression, previous psychiatric hospitalization - Past Surgical History Surgical History: appendectomy, breast surgery, knee replacement, other Additional surgical history: Breast reduction - Social History Smoking Status: Current every day smoker Smokeless Tobacco Status: No Alcohol use: none Drug use: marijuana - Family History Brother Family Member Ethnicity: Non- Living Status: Still Living Sister Family Member Ethnicity: Non- Living Status: Still Living Father Family Member Ethnicity: Non- Living Status: Hx Family Cardiac Disorders: Yes (CAD) Hx Family Respiratory Disorders: Yes (COPD) Hx Family Cancer: No Hx Family GI Disorders: No Hx Family Endocrine Disorder: No Hx Family Neuromuscular Disorders: No Hx Family Neurologic Disorders: No Hx Family HEENT Disorders: No Hx Family Autoimmune Disorders: No Mother Family Member Ethnicity: Non- Living Status: Hx Family Cardiac Disorders: No Hx Family Respiratory Disorders: No Hx Family Cancer: No Hx Family GI Disorders: No Hx Family Endocrine Disorder: No Hx Family Neuromuscular Disorders: No Hx Family Neurologic Disorders: No Hx Family HEENT Disorders: No Hx Family Autoimmune Disorders: No Internal Medicine - H&P: Meds Levothyroxine [Synthroid] 112 mcg PO QAM 09/01/16 [History] Potassium Chloride [Klor-Con 10] 20 meq PO TID 09/01/16 [History] Furosemide [Lasix] 40 mg PO DAILY #30 07/17/17 [Rx] Pantoprazole Sodium [Protonix] 40 mg PO BID #60 tablet. 07/17/17 [Rx] Buspirone HCl [Buspar] 10 mg PO BID 09/19/17 [History] Famotidine [Heartburn Prevention] 20 mg PO DAILY 09/19/17 [History] Nystatin POWDER [Nystop] 1 appl TP BID 09/19/17 [History] Aspirin Enteric Coated [Aspirin EC] 325 mg PO BID #20 tablet. 10/13/17 [Rx] Ibuprofen [Motrin] 600 mg PO BID PRN 10/29/17 [History] Lisinopril-HCTZ 10-12.5 [Prinzide 10-12.5] 1 tab PO DAILY 12/29/17 [History] Albuterol Sulfate [Ventolin Hfa] 2 puff IH BID 02/17/18 [History] Amitriptyline [Elavil] 25 mg PO HS 02/17/18 [History] Budesonide/Formoterol 160/4.5 [Symbicort 160/4.5] 2 puff IH BIDR 02/17/18 [ History] Trazodone HCl 300 mg PO HS 02/17/18 [History] hydrOXYzine pamoate [HydrOXYzine Pamoate] 25 - 50 mg PO BID PRN 02/17/18 [ History] Diphenoxylate/Atropine [Lomotil 2.5 mg/0.025 mg] 1 tab PO QID PRN 15 Days #60 tablet 02/27/18 [Rx] Atorvastatin [Lipitor] 40 mg PO HS 05/20/18 [History] Baclofen 20 mg PO BID PRN 05/20/18 [History] BuPROPion SR (12 HR) [Wellbutrin SR] 150 mg PO BID 05/20/18 [History] Gabapentin [Neurontin] 800 mg PO TID 05/20/18 [History] Sertraline [Zoloft] 200 mg PO DAILY 05/20/18 [History] 3 Allergy/AdvReac Type Severity Reaction Status Date / Time vancomycin Allergy Itching Verified 02/17/18 16:19 All Systems PM: A 10-system review of systems was performed and is negative for pertinent findings except as documented above in the HPI. - Constitutional Vitals: Temp Pulse Resp BP Pulse Ox 97.4 F L 69 17 121/67 100 05/20/18 04:35 05/20/18 04:35 05/20/18 04:35 05/20/18 04:35 05/20/18 04:35 Internal Med - H&P Results - Labs CBC & Chem 7: 05/20/18 05:58 05/20/18 05:58 - Assessment and plan (1) Acute encephalopathy Current Visit: Yes Status: Acute Assessment and plan: Uncertain etiology, may be multifactorial, some of the possibilities include: MS flare--seems less likely given brain MRI January 2018 read as stable and without evidence for active demyelination. Neurology consult and brain MRI ordered. CVA--less likely. No acute infarct or bleed on head CT; no hx of CVA,, or PE; nonfocal neuro exam Intoxication--EtOH and APAP level < 10. Reportedly used marijuana same day as presentation, possibility it may have been laced with another drug, or other substances of abuse, will check UDS. Seizure--less likely based on presentation, no seizure history on record review , EEG December 2016: no epileptiform activity during study Psychiatric--intentional versus accidental; psychiatric consult September 2017-- patient will intentionally and unintentionally overtake prescribed meds, "behaviors seem more driven by substance abuse and personality issues rather than genuine suicidality." Consider psych consult. (2) Multiple sclerosis Current Visit: Yes Status: Chronic Assessment and plan: No home meds for MS listed Brain MRI January 2018: Stable and no areas of active demyelination compared to previous study Neurology consult placed, recommendations appreciated Order placed for brain MRI (3) UTI (urinary tract infection) Current Visit: Yes Status: Acute Assessment and plan: Patient is afebrile and vital signs are stable Frequent UTIs based on review of micro-records UA positive for nitrites, leukocyte esterase, WBCs, bacteria Obtain clean catch urine sample and send for culture Empiric IV ceftriaxone 1 g--await micro-report, change abx if necessary Continue to monitor for signs of sepsis Qualifiers: Urinary tract infection type: acute cystitis Hematuria presence: without hematuria Qualified Code(s): N30.00 - Acute cystitis without hematuria (4) KRISHNA (acute kidney injury) Current Visit: Yes Status: Acute Assessment and plan: SCr 1.54 today, baseline is 0.8 to 0.9 Continue IV fluids Avoid nephrotoxins, use renal dosing (5) Obstructive sleep apnea Current Visit: Yes Status: Chronic Assessment and plan: Sleep study 04/29/18 with recommendation for NIPPV Patient should be on NIPPV at night (6) Hypothyroid Current Visit: Yes Status: Chronic Assessment and plan: Home dose of levothyroxine 112 mcg daily Check TSH level, adjust accordingly if necessary Qualifiers: Hypothyroidism type: unspecified Qualified Code(s): E03.9 - Hypothyroidism , unspecified (7) CHF (congestive heart failure) Current Visit: Yes Status: Chronic Assessment and plan: EVER October 2017: LVEF 60%, no significant valve dysfunction, no evidence of endocarditis Does not appear to be in exacerbation--no peripheral edema and no crackles heard on auscultation Holding diuretics due to KRISHNA Qualifiers: Heart failure type: diastolic Heart failure chronicity: chronic Qualified Code(s): I50.32 - Chronic diastolic (congestive) heart failure (8) HLD (hyperlipidemia) Current Visit: Yes Status: Chronic Assessment and plan: No statin on home med list Consider starting statin on discharge Qualifiers: Hyperlipidemia type: pure hypercholesterolemia Qualified Code(s): E78.00 - Pure hypercholesterolemia, unspecified; E78.0 - Pure hypercholesterolemia (9) Status post total right knee replacement Current Visit: Yes Status: Chronic Assessment and plan: Total right knee replacement Sep [address] Luong Surgical irrigation and debridement for right knee infection October [address] Luong--MRSA on wound culture Right knee does not appear infected on exam (10) Hyponatremia Current Visit: Yes Status: Acute Assessment and plan: Mild hyponatremia--127 today IVF replacement with normal saline Monitor with morning labs (11) DVT prophylaxis Current Visit: Yes Status: Acute Assessment and plan: Heparin 5,000 units SubQ Q12H - Time Spent With Patient Total time spent is greater than 50% in coordination of care (as documented) at patient's floor/unit and/or counseling patient: <Karla Franklin A - Last Filed: 05/22/18 10:44> Date of Encounter: 05/22/18 Time of Encounter: 06:00 Internal Medicine - H&P: HPI History of present illness: Ms. Copeland is a 57 year old female All Systems PM: A 10-system review of systems was performed and is negative for pertinent findings except as documented above in the HPI. - Constitutional Vitals: Temp Pulse Resp BP Pulse Ox 97.4 F L 69 17 121/67 100 05/20/18 04:35 05/20/18 04:35 05/20/18 04:35 05/20/18 04:35 05/20/18 04:35 Exam: General: Alert and oriented Skin:Normal color, no rash, no lesions. HEENT:EOM, pupils equal, round and reactive. Cardiovascular:Normal S1 & S2, no rubs, murmurs or gallops. No JVD. Pulse regular. Lungs:Normal breath sounds, no wheezes or crackles. Abdomen:Soft, non-tender, no rigidity. Extremities:No deformity, no edema or tenderness, no joint swelling or clubbing. Neurological:Normal cognition and motor skills. Pulses:Carotid and radial pulses normal +2. Rest of the physical exam is non contributory Internal Med - H&P Results - Labs CBC & Chem 7: 05/21/18 08:30 05/21/18 08:30 Labs: Short CBC 05/20/18 Range/Units 05:58 WBC 7.0 (4.3-11.1) K/mcL Hgb 11.2 L (11.5-15.4) g/dL Hct 33.5 L (35.3-44.9) % Plt Count 125 L (140-400) K/mcL Neutrophils # 6.2 (1.6-8.9) K/mcL BMP 05/20/18 05:58 Sodium 127 L Potassium 4.7 Chloride 100 Carbon Dioxide 23 BUN 27 H Creatinine 1.45 H Glucose 116 H Calcium 9.1 Cardiac Enzymes 05/20/18 Range/Units 05:58 Troponin I < 0.03 (< 0.04) ng/mL Liver Function 05/20/18 05/20/18 Range/Units 05:58 05:58 Total Bilirubin 0.3 0.3 (0.3-1.0) mg/dL Direct Bilirubin 0.1 (0.0-0.2) mg/dL AST 12 L 9 L (13-39) Units/L ALT 8 8 (7-52) Units/L Alkaline Phosphatase 114 H 116 H (34-104) Units/L Albumin 4.2 4.2 (3.5-5.7) g/dL - Time Spent With Patient Total time spent is greater than 50% in coordination of care (as documented) at patient's floor/unit and/or counseling patient: - Attending Attestation Patient is a 57-year-old female with a past medical history of multiple sclerosis, CHF, COPD, hyperlipidemia and thyroid disease who presented to the ED due to altered mental status. Patient is a poor historian and therefore much of the medical history was provided from family member and ED documentation. For details of history of present illness please see above. In short patient went to bed around 11 PM in her usual state of health. Around 1 AM the patient woke up complaining of headache describing it as a feeling that her head was going to explode associated with mumbling speech. At this point her called EMS. Per EMS report, patient continued to mumble during the entire transport. Upon arrival patient was very confused unable to follow commands and had slurred speech. Stroke alert was called. NIH score of 8. CT scan was performed which was negative for acute changes. Neurology consulted via telemedicine and based on their assessment felt this more to be due to encephalopathy in the absence of any focal findings and as such did not recommend TPA at this time. Patient's symptoms gradually improved. Laboratory workup was notable for moderate hyponatremia and KRISHNA. UA suggestive of UTI. She was otherwise afebrile and he was dynamically stable. EKG unremarkable. Patient was started on IV Solu-Medrol per neurology recommendation. Looking back at previous admissions, patient has had similar presentations of altered mental status. Patient has had a history of polysubstance and per family member she recently used marijuana. Altered mental status: Per neurology, does not feel his to be secondary to stroke. Low suspicion for seizure at this time. No evidence of an infectious etiology though UA is concerning for possible urinary tract infection. Furthermore patient has mild to moderate hyponatremia and evidence of acute kidney injury. Must also consider drug abuse. Patient received 1 bolus of normal saline in the ED. 125 mg of methylprednisolone was administered for possible MS flare. We will treat underlying electrolyte abnormalities and KRISHNA. We will obtain urine culture and begin treatment with ceftriaxone for possible UTI. We will obtain a urine drug screen and ABG. Check TSH. Telemetry . NPO. Neurology consult for the morning. KRISHNA: Patient received 1 L fluid bolus in the ED. We will start patient on maintenance fluids at 100 mL/ hour. Recheck sodium. Consider nephrology consult. Chronic conditions: Patient's medications and to be verified. Hold all home medications for now.
[2018-05-20] MEDS: *HR* Heparin 5,000 UNIT/ML VIAL SQ SCH ×2 (06:01→20:23)
[2018-05-20 06:09] LABS: Basophils % 0.3 %; Eosinophils # 0.2 K/mcL (0.0-0.6); Eosinophils % 2.3 %; Hematocrit 33.5 % (35.3-44.9); Hemoglobin 11.2 g/dL (11.5-15.4); Immature Granulocytes % 0.6 % (0-4); Lymphocytes # 0.5 K/mcL (0.6-4.6); Lymphocytes % 6.7 %; Mean Corpuscular HGB Conc 33.4 g/dL (31.6-35.5); Mean Corpuscular Hemoglobin 29.7 pg (28.0-33.3); Mean Corpuscular Volume 88.9 fL (83.0-100.0); Mean Platelet Volume 10.6 fL (9.4-12.4); Monocytes # 0.2 K/mcL (0.0-1.3); Monocytes % 2.1 %; Neutrophils # 6.2 K/mcL (1.6-8.9); Platelet Count 125 K/mcL (140-400); Red Blood Count 3.77 M/mcL (3.82-4.97); Red Cell Distribution Width 13.5 % (11.5-14.5)
[2018-05-20 06:29] LABS: Albumin 4.2 g/dL (3.5-5.7); Albumin/Globulin Ratio 1.8 (1.1-2.2); Bilirubin,Direct 0.1 mg/dL (0.0-0.2); Bilirubin,Indirect 0.2 mg/dL (0.0-1.2); Bilirubin,Total 0.3 mg/dL (0.3-1.0); Globulin 2.4 g/dL (2.4-3.5); Total Protein 6.6 g/dL (6.4-8.9)
[2018-05-20 06:31] LABS: Troponin I < 0.03 ng/mL (< 0.04)
[2018-05-20 06:32] LABS: Alanine Aminotransferase 8 Units/L (7-52); Albumin 4.2 g/dL (3.5-5.7); Albumin/Globulin Ratio 1.7 (1.1-2.2); Alkaline Phosphatase 114 Units/L (34-104); Aspartate Amino Transferase 12 Units/L (13-39); BUN/Creatinine Ratio 19 (6-26); Bilirubin,Total 0.3 mg/dL (0.3-1.0); Blood Urea Nitrogen 27 mg/dL (6-20); Calcium 9.1 mg/dL (8.6-10.3); Carbon Dioxide 23 mEq/L (23-29); Chloride 100 mEq/L (98-107); Globulin 2.5 g/dL (2.4-3.5); Glucose 116 mg/dL (70-105); Osmolality,Calculated 270 (280-300); Potassium 4.7 mEq/L (3.5-5.1); Sodium 127 mEq/L (136-145); Total Protein 6.7 g/dL (6.4-8.9); eGFR For Non-African Americans 37 (> 60)
[2018-05-20 08:35] LABS: ABG Base Excess -3 mEq/L (-2 to 3); ABG HCO3 23 mEq/L (21-27); ABG Oxygen Saturation 96 % (95-98); ABG PCO2 40 mmHg (35-45); ABG PH 7.36 pH Units (7.32-7.45); ABG PO2 88 mmHg (85-104); ABG TCO2 24 mEq/L (20-26)
[2018-05-20] MEDS: cefTRIAXone 1,000 MG in Water for inj. (sterile) 20 ML 10 ML IVP SCH (09:32)
[2018-05-20] MEDS: 0.9 % Sodium Chloride 1,000 ML IVC SCH ×2 (09:33→20:24)
--- NOTE | 2018-05-20 12:13 | Neurology - Consult Note ---
Date of Encounter: 05/20/18 Time of Encounter: 12:09 Assessment and Plan (1) Altered mental status Current Visit: No Status: Acute This patient who has an history of multiple sclerosis admitted with mental status changes. She continued to have a fluctuating mental status changes no focal findings on examination and particularly no lateralizing sign to be suggestive of a stroke. She did noted to have a UTI perhaps could be the main reciprocating factor and the cause of this until status changes. On examination did not see any sign off nuchal rigidity. She is already on antibiotics I suggested that she should continue on it. Hold on for any steroids unless we find any evidence of MS exacerbation on the MRI of the brain. We will get an EEG at the same time suggest MRI of the brain with and without contrast to look for any acute exacerbation of MS or any other underlying intracranial abnormality Continue treatment the UTI and continue on antibiotics also check for other metabolic abnormalities. Also suggested that should repeat the urine toxicity screening for any substance abuse especially for any marijuana or any other illicit drugs If all negative and no other source of infection and no improvement she may need a spinal tap will follow the patient with you Qualifiers: Altered mental status type: unspecified Qualified Code(s): R41.82 - Altered mental status, unspecified (2) Multiple sclerosis Current Visit: Yes Status: Chronic History of Present Illness HPI: Ms. Copeland is a 57 year old female with history of multiple sclerosis admitted from the emergency department after called EMS saying at 1:00 this evening he noticed that she was not acting normal complaining of her headache, and slurred speech. Patient has never had a stroke, she has MS for several years, Patient denies any headache, blurry vision, neck pain, back pain, fevers, nausea, vomiting, chest pain, shortness of breath, abdominal pain, changes in bowel movements, pain with urination, pain or tingling of the arms or legs. CT scan of the head was negative with the chronic changes noted. She found to have a UTI and has received steroids in the emergency room and also on ceftriaxone. Currently she is alert and awake able to follow simple commands but noted to have confusion she is not able to give much detailed history about her MS Past Med Surg Social Fam HX - Past Medical History Medical history: cancer, CHF, COPD, GERD, hyperlipidemia, thyroid disease, other Additional medical history: MS Psychiatric history: anxiety, depression, previous psychiatric hospitalization - Past Surgical History Surgical History: appendectomy, breast surgery, knee replacement, other Additional surgical history: Breast reduction - Social History Smoking Status: Current every day smoker Smokeless Tobacco Status: No Alcohol use: none Drug use: marijuana - Family History Brother Family Member Ethnicity: Non- Living Status: Still Living Sister Family Member Ethnicity: Non- Living Status: Still Living Father History Unknown: Yes Family Member Ethnicity: Non- Living Status: Hx Family Cardiac Disorders: Yes (CAD) Hx Family Respiratory Disorders: Yes (COPD) Hx Family Cancer: No Hx Family GI Disorders: No Hx Family Endocrine Disorder: No Hx Family Neuromuscular Disorders: No Hx Family Neurologic Disorders: No Hx Family HEENT Disorders: No Hx Family Autoimmune Disorders: No Mother History Unknown: Yes Family Member Ethnicity: Non- Living Status: Hx Family Cardiac Disorders: No Hx Family Respiratory Disorders: No Hx Family Cancer: No Hx Family GI Disorders: No Hx Family Endocrine Disorder: No Hx Family Neuromuscular Disorders: No Hx Family Neurologic Disorders: No Hx Family HEENT Disorders: No Hx Family Autoimmune Disorders: No Medications and Allergies Levothyroxine [Synthroid] 112 mcg PO QAM 09/01/16 [History] Potassium Chloride [Klor-Con 10] 20 meq PO TID 09/01/16 [History] Furosemide [Lasix] 40 mg PO DAILY #30 07/17/17 [Rx] Pantoprazole Sodium [Protonix] 40 mg PO BID #60 tablet. 07/17/17 [Rx] Buspirone HCl [Buspar] 10 mg PO BID 09/19/17 [History] Famotidine [Heartburn Prevention] 20 mg PO DAILY 09/19/17 [History] Nystatin POWDER [Nystop] 1 appl TP BID 09/19/17 [History] Aspirin Enteric Coated [Aspirin EC] 325 mg PO BID #20 tablet. 10/13/17 [Rx] Ibuprofen [Motrin] 600 mg PO BID PRN 10/29/17 [History] Lisinopril-HCTZ 10-12.5 [Prinzide 10-12.5] 1 tab PO DAILY 12/29/17 [History] Albuterol Sulfate [Ventolin Hfa] 2 puff IH BID 02/17/18 [History] Amitriptyline [Elavil] 25 mg PO HS 02/17/18 [History] Budesonide/Formoterol 160/4.5 [Symbicort 160/4.5] 2 puff IH BIDR 02/17/18 [ History] Trazodone HCl 300 mg PO HS 02/17/18 [History] hydrOXYzine pamoate [HydrOXYzine Pamoate] 25 - 50 mg PO BID PRN 02/17/18 [ History] Diphenoxylate/Atropine [Lomotil 2.5 mg/0.025 mg] 1 tab PO QID PRN 15 Days #60 tablet 02/27/18 [Rx] Atorvastatin [Lipitor] 40 mg PO HS 05/20/18 [History] Baclofen 20 mg PO BID PRN 05/20/18 [History] BuPROPion SR (12 HR) [Wellbutrin SR] 150 mg PO BID 05/20/18 [History] Gabapentin [Neurontin] 800 mg PO TID 05/20/18 [History] Sertraline [Zoloft] 200 mg PO DAILY 05/20/18 [History] 3 Allergy/AdvReac Type Severity Reaction Status Date / Time vancomycin Allergy Itching Verified 02/17/18 16:19 All Systems: The remainder of the systems were reviewed and are negative Physical Examination - Vital Signs Vital Signs: Initial Vital Signs Temp Pulse Resp BP Pulse Ox 98.3 F 113 20 119/72 100 05/20/18 01:45 05/20/18 01:45 05/20/18 01:45 05/20/18 01:45 05/20/18 01:45 - Constitutional General appearance: comfortable - Neurologic Sensorimotor examination: intact Detailed motor examination: grossly full strength in all extremities Detailed sensory examination: intact Reflex and gait examination: intact Reflexes: Biceps: 1+, Triceps: 1+, Brachioradialis: 1+, Patella: 1+, Achilles: 1 + Mental Status Examination: awake, alert, oriented to person, delerious, opens eyes to voice, opens eyes to noxious stimulation, makes eye contact, follows simple commands, localizes noxious stimulation Cranial nerve examination: PERRL, EOMI, visual morgan intact, no facial asymmetry is present, no dysarthria (Patient noted to have a very anxious of fact she is alert and awake able to follow simple commands on further examination did not noticed any nuchal rigidity no Teresa or Brudzinski sign noted) Results - Laboratory Findings CBC and BMP: 05/20/18 05:58 05/20/18 05:58 Abnormal lab findings: Abnormal lab results RBC 3.77 M/mcL (3.82-4.97) L 05/20/18 05:58 Hgb 11.2 g/dL (11.5-15.4) L 05/20/18 05:58 Hct 33.5 % (35.3-44.9) L 05/20/18 05:58 Plt Count 125 K/mcL (140-400) L 05/20/18 05:58 Lymphocytes # 0.5 K/mcL (0.6-4.6) L 05/20/18 05:58 ABG Base Excess -3 mEq/L (-2 to 3) L 05/20/18 08:31 Sodium 127 mEq/L (136-145) L 05/20/18 05:58 BUN 27 mg/dL (6-20) H 05/20/18 05:58 Creatinine 1.45 mg/dL (0.60-1.20) H 05/20/18 05:58 Est GFR ( Amer) 45 (> 60) L 05/20/18 05:58 Est GFR (Non-Af Amer) 37 (> 60) L 05/20/18 05:58 Glucose 116 mg/dL (70-105) H 05/20/18 05:58 POC Glucose 114 mg/dL (70-99) H 05/20/18 01:48 Calculated Osmolality 270 (280-300) L 05/20/18 05:58 AST 12 Units/L (13-39) L 05/20/18 05:58 Alkaline Phosphatase 114 Units/L (34-104) H 05/20/18 05:58 Urine Nitrite Positive (Negative) A 05/20/18 03:20 Ur Leukocyte Esterase Small (Negative) H 05/20/18 03:20 Urine Microscopic WBC 3-5 per hpf (0-3) H 05/20/18 03:20 Ur Squamous Epith Cells Many per lpf (None-Few) H 05/20/18 03:20 Urine Bacteria Moderate per hpf (None-Few) H 05/20/18 03:20 Ur Culture Indicated? NO. (NO) A 05/20/18 03:20 Acetaminophen < 10 mcg/mL (10-20) L 05/20/18 01:55 - Diagnostic Findings Additional findings: CT scan of the head is negative chronic ischemic changes Consult Discharge Plan - Plan Referrals: Johnie Farley MD [Primary Care Provider] -
[2018-05-20 13:37] LABS: Folate 5.1 ng/mL (3.0-16.0)
--- NOTE | 2018-05-20 17:43 | Event Note ---
Date of Encounter: 05/20/18 Time of Encounter: 11:00 Patient seen and evaluated by nocturnalist earlier this morning and also by myself. Patient is a 49-year-old female with past medical history significant for multiple sclerosis who presents with altered mental status and unknown etiology. Patient currently being treated for UTI. Neurology following with recommendations for MRI which is pending If initial workup negative consideration for lumbar puncture
[2018-05-20 21:01] LABS: Amphetamine Screen,Urine Negative ng/mL (Cutoff=1000); Barbiturate Screen,Urine Negative ng/mL (Cutoff=200); Benzodiazepines Screen,Urine Negative ng/mL (Cutoff=200); Cannabinoid Screen,Urine Positive ng/mL (Cutoff = 50); Cocaine Screen,Urine Negative ng/mL (Cutoff= 300); Opiate Screen,Urine Negative ng/mL (Cutoff=300); Phencyclidine Screen,Urine Negative ng/mL (Cutoff=25)
[2018-05-21] MEDS: *HR* Heparin 5,000 UNIT/ML VIAL SQ SCH ×2 (06:47→16:59)
--- NOTE | 2018-05-21 08:10 | Internal Med Progress Note ---
Hospitalist Progress Note - Encounter Date of Encounter: 05/21/18 Time of Encounter: 11:00 - Subjective Interval History: Patient with a past medical history significant for multiple sclerosis, polysubstance abuse and psychiatric inpatient hospitalization resents with altered mental status. Patient with pyuria on urinalysis on IV antibiotic MRI pending; neurology following - Exam Vitals: Temp Pulse Resp BP Pulse Ox 97.5 F L 84 16 113/66 100 05/21/18 07:24 05/21/18 07:24 05/21/18 07:24 05/21/18 07:24 05/21/18 07:24 Exam: Gen.: Nonacute distress, alert and oriented 2 ENT: Mucosal membranes moist Respiratory: Lungs are clear to auscultation bilaterally without any wheezing rhonchi or rales Cardiovascular: Normal S1 and S2 regular rate rhythm no murmurs rubs or gallops Abdomen: Soft, nontender and nondistended with positive bowel sounds Extremities: No lower extremity edema Skin: Normal color - Assessment and Plan (1) Acute encephalopathy Current Visit: Yes Status: Acute Assessment and Plan: Patient alert and oriented 3 this morning and mental status improving MRI pending Neurology following and appreciate recommendations (2) UTI (urinary tract infection) Current Visit: Yes Status: Acute Assessment and Plan: Patient is afebrile and vital signs are stable Frequent UTIs based on review of micro-records UA positive for nitrites, leukocyte esterase, WBCs, bacteria Continue IV ceftriaxone (3) Acute renal failure (ARF) Current Visit: Yes Status: Acute Assessment and Plan: Resolved; continue to monitor (4) Multiple sclerosis Current Visit: Yes Status: Chronic Assessment and Plan: No home meds for MS listed Brain MRI January 2018: Stable and no areas of active demyelination compared to previous study Repeat MRI pending; Neurology following (5) Hypothyroid Current Visit: Yes Status: Chronic Assessment and Plan: TSH 2.841; continue dose of levothyroxine 112 mcg daily (6) CHF (congestive heart failure) Current Visit: Yes Status: Chronic Assessment and Plan: EVER October 2017: LVEF 60%, no significant valve dysfunction, no evidence of endocarditis Does not appear to be in exacerbation--no peripheral edema and no crackles heard on auscultation Holding diuretics due to KRISHNA on admission (7) Obstructive sleep apnea Current Visit: Yes Status: Chronic Assessment and Plan: Sleep study 04/29/18 with recommendation for NIPPV Patient should be on NIPPV at night (8) Status post total right knee replacement Current Visit: Yes Status: Chronic Assessment and Plan: Total right knee replacement Sep [address] Luong Surgical irrigation and debridement for right knee infection October [address] Luong--MRSA on wound culture Right knee does not appear infected on exam (9) Hyponatremia Current Visit: Yes Status: Acute Assessment and Plan: Resolved; continue to monitor (10) DVT prophylaxis Current Visit: Yes Status: Acute Assessment and Plan: Heparin 5,000 units SubQ Q12H - Time Spent with Patient Total time spent is greater than 50% in coordination of care (as documented) at patient's floor/unit and/or counseling patient: Internal Medicine: Result - Labs CBC & Chem 7: 05/21/18 08:30 05/21/18 08:30 - ABG Interpretation ABG results: ABG ABG pH 7.36 pH Units (7.32-7.45) 05/20/18 08:31 ABG pCO2 40 mmHg (35-45) 05/20/18 08:31 ABG pO2 88 mmHg (85-104) 05/20/18 08:31 ABG O2 Saturation 96 % (95-98) 05/20/18 08:31 PT/INR, D-dimer PT 10.7 Seconds (9.4-12.1) 05/20/18 01:55 Consult Discharge Plan - Plan Referrals: Johnie Farley MD [Primary Care Provider] - (2) UTI (urinary tract infection) Qualifiers: Urinary tract infection type: acute cystitis Hematuria presence: without hematuria Qualified Code(s): N30.00 - Acute cystitis without hematuria (5) Hypothyroid Qualifiers: Hypothyroidism type: unspecified Qualified Code(s): E03.9 - Hypothyroidism, unspecified (6) CHF (congestive heart failure) Qualifiers: Heart failure type: diastolic Heart failure chronicity: chronic Qualified Code(s): I50.32 - Chronic diastolic (congestive) heart failure
[2018-05-21 08:49] LABS: Basophils % 0.3 %; Eosinophils % 0.7 %; Hemoglobin 10.7 g/dL (11.5-15.4); Immature Granulocytes % 0.3 % (0-4); Lymphocytes # 0.9 K/mcL (0.6-4.6); Lymphocytes % 15.7 %; Mean Corpuscular HGB Conc 33.4 g/dL (31.6-35.5); Mean Corpuscular Hemoglobin 29.8 pg (28.0-33.3); Mean Corpuscular Volume 89.1 fL (83.0-100.0); Mean Platelet Volume 10.9 fL (9.4-12.4); Monocytes # 0.5 K/mcL (0.0-1.3); Monocytes % 8.1 %; Neutrophils # 4.4 K/mcL (1.6-8.9); Platelet Count 119 K/mcL (140-400); Red Blood Count 3.59 M/mcL (3.82-4.97); Red Cell Distribution Width 13.3 % (11.5-14.5); Segmented Neutrophils % 74.9 %
[2018-05-21 09:11] LABS: Calcium 9.2 mg/dL (8.6-10.3); Potassium 4.5 mEq/L (3.5-5.1)
[2018-05-21] MEDS: cefTRIAXone 1,000 MG in Water for inj. (sterile) 20 ML 10 ML IVP SCH (09:16)
[2018-05-21] MEDS ORDERED: ALPRAZolam 1 MG TABLET PO PRN (09:31)
--- NOTE | 2018-05-21 10:01 | Neurology Progress Note ---
<Dyan Morris N - Last Filed: 05/21/18 10:22> Date of Encounter: 05/21/18 Time of Encounter: 09:50 Assessment and Plan (1) Altered mental status Current Visit: No Status: Acute Patient has a history of multiple sclerosis who was admitted for acute altered mental status Patient can not remember her MS symptoms, but endorsed parasthesias of the left foot on exam Neurological examination was otherwise normal. Also no headache or nuchal rigidity noted. Patient continues to be confused and has trouble with memory, unsure if this is patient's baseline Patient is currently being treated for UTI, possible source for patients altered mentation Unlikely that this is secondary to an exacerbation of patient's MS Patient was notified of the MRI and she became profoundly anxious to have the imaging performed. Will provide ativan prior to obtaining MRI. Will f/u with MRI w/wo contrast to assess for any possible exacerbation of her disease Qualifiers: Altered mental status type: unspecified Qualified Code(s): R41.82 - Altered mental status, unspecified (2) Multiple sclerosis Current Visit: Yes Status: Chronic Chronic history of MS Current symptoms are unlikely to be caused by an exacerbation of her underlying MS Will f/u with MRI (3) UTI (urinary tract infection) Current Visit: Yes Status: Acute Possible source for patient's mental status changes and memory difficulties Continue antibiotic treatment Qualifiers: Urinary tract infection type: acute cystitis Hematuria presence: without hematuria Qualified Code(s): N30.00 - Acute cystitis without hematuria Subjective Principal diagnosis: Altered Mental Status Interval history: Patient seen and examined at bedside this morning. She is awake and alert and able to maintain conversation without difficulty, but she continues to endorse confusion and memory difficulties that she feels may be marginally improved from yesterday. She can not provide a detailed history of her symptoms, nor can she recall the events leading to her current hospitalization. She denies any headaches or neck stiffness and she can not recall her baseline MS symptoms. She denies any fevers, chills, chest pain, palpitations, unilateral weakness, urinary or bowel complaints. She does admit to parasthesias in the left foot. Objective - Constitutional Vitals: Temp Pulse Resp BP Pulse Ox 97.5 F L 84 16 113/66 100 05/21/18 07:24 05/21/18 07:24 05/21/18 07:24 05/21/18 07:24 05/21/18 09:07 Exam: General: Awake, alert and oriented x2, not oriented to month of the year. Profoundly anxious Head: Atraumatic, normocephalic. Oral mucosa is moist. Heart: Regular rate and rhythm, no murmurs auscultated Lungs: clear to auscultation, no wheezes or rales Abdomen: obese, soft, nontender Neurological: Cranial Nerves: II-XII grossly intact. PERRL, EOMI, Tongue protrudes midline, uvula midline, sensation intact, no unilateral weakness or facial droop, hearing grossly intact, SCM and trapezius strength is intact. Upper extremities: Sensation intact bilaterally, muscle strength 4/5 bilateral and symmetric. finger to nose normal. Biceps reflex intact at 2+. Lower extremities: SEnsation intact bilaterally. Parasthesias of the left foot with light touch of left foot. LE strength is 4/5 bilaterally and is symmetric. Patient is unable to raise LE off bed for prolonged period of time secondary to LE weight. Patellar reflex 1+. - Neurological Exam Sensorimotor examination: Present: intact Motor Examination: Present: grossly full strength in all extremities Sensation intact: Present: intact Reflex and gait examination: intact Mental Status Examination: Present: awake, alert, oriented to person, delerious , opens eyes to voice, opens eyes to noxious stimulation, makes eye contact, follows simple commands, localizes noxious stimulation Cranial nerve examination: Present: PERRL, EOMI, visual morgan intact, no facial asymmetry is present, no dysarthria (Patient noted to have a very anxious of fact she is alert and awake able to follow simple commands on further examination did not noticed any nuchal rigidity no Teresa or Brudzinski sign noted) Results - Laboratory Findings CBC and BMP: 05/21/18 08:30 05/21/18 08:30 Abnormal lab findings: Abnormal lab results RBC 3.59 M/mcL (3.82-4.97) L 05/21/18 08:30 Hgb 10.7 g/dL (11.5-15.4) L 05/21/18 08:30 Hct 32.0 % (35.3-44.9) L 05/21/18 08:30 Plt Count 119 K/mcL (140-400) L 05/21/18 08:30 ABG Base Excess -3 mEq/L (-2 to 3) L 05/20/18 08:31 Est GFR ( Amer) 57 (> 60) L 05/21/18 08:30 Est GFR (Non-Af Amer) 47 (> 60) L 05/21/18 08:30 POC Glucose 114 mg/dL (70-99) H 05/20/18 01:48 AST 12 Units/L (13-39) L 05/20/18 05:58 Alkaline Phosphatase 114 Units/L (34-104) H 05/20/18 05:58 Urine Nitrite Positive (Negative) A 05/20/18 03:20 Ur Leukocyte Esterase Small (Negative) H 05/20/18 03:20 Urine Microscopic WBC 3-5 per hpf (0-3) H 05/20/18 03:20 Ur Squamous Epith Cells Many per lpf (None-Few) H 05/20/18 03:20 Urine Bacteria Moderate per hpf (None-Few) H 05/20/18 03:20 Ur Culture Indicated? NO. (NO) A 05/20/18 03:20 Acetaminophen < 10 mcg/mL (10-20) L 05/20/18 01:55 U Marijuana (THC) Screen Positive ng/mL (Cutoff = 50) H 05/20/18 20:30 Consult Discharge Plan - Plan Referrals: Johnie Farley MD [Primary Care Provider] - <Kelsey Cuenca I - Last Filed: 05/21/18 11:02> Date of Encounter: 05/21/18 Assessment and Plan (1) Altered mental status Current Visit: No Status: Acute Pt was seen and examined, my medical decision was reviewed with the Resident Physician, I agree with the documented findings, disposition and treatment plas as described except to the extent set forth below Patient seems to be more awake and alert and less confused as compared to the yesterday. She is able to have a conversation, she is able to tell the name of her neurologist that she sees encircle at the same time she also able to tell the medication ( ABAGIO) she is been on for more than a year for her MS , though still have some mild confusion at the same time no new focal motor neurological deficit noted on examination. Suspect her symptoms are likely related to UTI and at the same time marijuana use may have complicated. We will get an MRI of the brain today to make sure that no new lesions from her MS, clinically does not look like she has any sign and symptoms of acute exacerbation. Other treatment is as per primary team will follow the result of MRI Kelsey Cuenca MD Qualifiers: Altered mental status type: unspecified Qualified Code(s): R41.82 - Altered mental status, unspecified (2) Multiple sclerosis Current Visit: Yes Status: Chronic Objective - Constitutional Vitals: Temp Pulse Resp BP Pulse Ox 97.5 F L 84 16 113/66 100 05/21/18 07:24 05/21/18 07:24 05/21/18 07:24 05/21/18 07:24 05/21/18 09:07 Results - Laboratory Findings CBC and BMP: 05/21/18 08:30 05/21/18 08:30 Abnormal lab findings: Abnormal lab results RBC 3.59 M/mcL (3.82-4.97) L 05/21/18 08:30 Hgb 10.7 g/dL (11.5-15.4) L 05/21/18 08:30 Hct 32.0 % (35.3-44.9) L 05/21/18 08:30 Plt Count 119 K/mcL (140-400) L 05/21/18 08:30 ABG Base Excess -3 mEq/L (-2 to 3) L 05/20/18 08:31 Est GFR ( Amer) 57 (> 60) L 05/21/18 08:30 Est GFR (Non-Af Amer) 47 (> 60) L 05/21/18 08:30 POC Glucose 114 mg/dL (70-99) H 05/20/18 01:48 AST 12 Units/L (13-39) L 05/20/18 05:58 Alkaline Phosphatase 114 Units/L (34-104) H 05/20/18 05:58 Urine Nitrite Positive (Negative) A 05/20/18 03:20 Ur Leukocyte Esterase Small (Negative) H 05/20/18 03:20 Urine Microscopic WBC 3-5 per hpf (0-3) H 05/20/18 03:20 Ur Squamous Epith Cells Many per lpf (None-Few) H 05/20/18 03:20 Urine Bacteria Moderate per hpf (None-Few) H 05/20/18 03:20 Ur Culture Indicated? NO. (NO) A 05/20/18 03:20 Acetaminophen < 10 mcg/mL (10-20) L 05/20/18 01:55 U Marijuana (THC) Screen Positive ng/mL (Cutoff = 50) H 05/20/18 20:30
--- NOTE | 2018-05-21 15:37 | Electrocardiograph Report ---
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
[2018-05-22] MEDS: *HR* Heparin 5,000 UNIT/ML VIAL SQ SCH ×2 (05:52→17:54)
--- NOTE | 2018-05-22 09:00 | Neurology Progress Note ---
<Dyan Morris N - Last Filed: 05/22/18 09:17> Date of Encounter: 05/22/18 Time of Encounter: 08:58 Assessment and Plan (1) Altered mental status Current Visit: No Status: Acute Patient states that her confusion symptoms are much improved. She has no focal neurological deficit, dysarthria, or confusion on exam. Speech is fluent and coherent. - MRI showed stable findings of multiple sclerosis. No new lesions since 2017 - Symptoms possibly due to urinary tract infection, continue antibiotics - Will follow up with EEG, but suspect non-neurological cause for patient's change in mental status. - Neurology will sign off, please reach out with any questions Qualifiers: Altered mental status type: unspecified Qualified Code(s): R41.82 - Altered mental status, unspecified (2) Multiple sclerosis Current Visit: Yes Status: Chronic MRI showed stable findings of multiple sclerosis, no new lesions since 2017. Unlikely that her presenting symptoms were due to her MS (3) UTI (urinary tract infection) Current Visit: Yes Status: Acute No growth on culture to date and no evidence of leukocytosis Patient's improving symptoms may be secondary to UTI, continue antibiotic treatment. Qualifiers: Urinary tract infection type: acute cystitis Hematuria presence: without hematuria Qualified Code(s): N30.00 - Acute cystitis without hematuria Subjective Principal diagnosis: Altered Mental Status Interval history: Patient seen and examined at bedside this morning. She is awake and alert. She states that her confusion is much improved. She denies any fevers, chills, chest pain, palpitations, or unilateral weakness. Objective - Constitutional Vitals: Temp Pulse Resp BP Pulse Ox 97.7 F 84 16 138/84 98 05/22/18 07:29 05/22/18 07:29 05/22/18 07:29 05/22/18 07:29 05/22/18 07:29 General appearance: Present: cooperative, A&O X 3 - Head Head exam: Present: atraumatic - Neurological Exam Sensorimotor examination: Present: intact Motor Examination: Present: grossly full strength in all extremities Sensation intact: Present: intact Reflex and gait examination: intact Mental Status Examination: Present: awake, alert, oriented to person, makes eye contact, follows simple commands Cranial nerve examination: Present: EOMI, no facial asymmetry is present, no dysarthria Results - Laboratory Findings CBC and BMP: 05/21/18 08:30 05/21/18 08:30 Abnormal lab findings: Abnormal lab results RBC 3.59 M/mcL (3.82-4.97) L 05/21/18 08:30 Hgb 10.7 g/dL (11.5-15.4) L 05/21/18 08:30 Hct 32.0 % (35.3-44.9) L 05/21/18 08:30 Plt Count 119 K/mcL (140-400) L 05/21/18 08:30 ABG Base Excess -3 mEq/L (-2 to 3) L 05/20/18 08:31 Est GFR ( Amer) 57 (> 60) L 05/21/18 08:30 Est GFR (Non-Af Amer) 47 (> 60) L 05/21/18 08:30 POC Glucose 114 mg/dL (70-99) H 05/20/18 01:48 AST 12 Units/L (13-39) L 05/20/18 05:58 Alkaline Phosphatase 114 Units/L (34-104) H 05/20/18 05:58 Urine Nitrite Positive (Negative) A 05/20/18 03:20 Ur Leukocyte Esterase Small (Negative) H 05/20/18 03:20 Urine Microscopic WBC 3-5 per hpf (0-3) H 05/20/18 03:20 Ur Squamous Epith Cells Many per lpf (None-Few) H 05/20/18 03:20 Urine Bacteria Moderate per hpf (None-Few) H 05/20/18 03:20 Ur Culture Indicated? NO. (NO) A 05/20/18 03:20 Acetaminophen < 10 mcg/mL (10-20) L 05/20/18 01:55 U Marijuana (THC) Screen Positive ng/mL (Cutoff = 50) H 05/20/18 20:30 Consult Discharge Plan - Plan Referrals: Johnie Farley MD [Primary Care Provider] - <Kelsey Cuenca I - Last Filed: 05/22/18 09:42> Date of Encounter: 05/22/18 Assessment and Plan (1) Altered mental status Current Visit: No Status: Acute Pt was seen and examined, my medical decision was reviewed with the Resident Physician, I agree with the documented findings, disposition and treatment plas as described except to the extent set forth below MRI of the brain reviewed did not show any new lesions and no evidence of any MS exacerbation. Patient is seems to be back to her baseline suspect mental status changes was likely related to UTI , has been resolving now. Suggest to continue on antibiotics as been prescribed by the primary team. Advised to increase ambulation okay to discharge from neurology standpoint with follow-up with the neurologist Dr Mccray, in [place]. Kelsey Cuenca MD Qualifiers: Altered mental status type: unspecified Qualified Code(s): R41.82 - Altered mental status, unspecified (2) Multiple sclerosis Current Visit: Yes Status: Chronic Objective - Constitutional Vitals: Temp Pulse Resp BP Pulse Ox 97.7 F 84 16 138/84 98 05/22/18 07:29 05/22/18 07:29 05/22/18 07:29 05/22/18 07:29 05/22/18 07:29 Results - Laboratory Findings CBC and BMP: 05/21/18 08:30 05/21/18 08:30 Abnormal lab findings: Abnormal lab results RBC 3.59 M/mcL (3.82-4.97) L 05/21/18 08:30 Hgb 10.7 g/dL (11.5-15.4) L 05/21/18 08:30 Hct 32.0 % (35.3-44.9) L 05/21/18 08:30 Plt Count 119 K/mcL (140-400) L 05/21/18 08:30 ABG Base Excess -3 mEq/L (-2 to 3) L 05/20/18 08:31 Est GFR ( Amer) 57 (> 60) L 05/21/18 08:30 Est GFR (Non-Af Amer) 47 (> 60) L 05/21/18 08:30 POC Glucose 114 mg/dL (70-99) H 05/20/18 01:48 AST 12 Units/L (13-39) L 05/20/18 05:58 Alkaline Phosphatase 114 Units/L (34-104) H 05/20/18 05:58 Urine Nitrite Positive (Negative) A 05/20/18 03:20 Ur Leukocyte Esterase Small (Negative) H 05/20/18 03:20 Urine Microscopic WBC 3-5 per hpf (0-3) H 05/20/18 03:20 Ur Squamous Epith Cells Many per lpf (None-Few) H 05/20/18 03:20 Urine Bacteria Moderate per hpf (None-Few) H 05/20/18 03:20 Ur Culture Indicated? NO. (NO) A 05/20/18 03:20 Acetaminophen < 10 mcg/mL (10-20) L 05/20/18 01:55 U Marijuana (THC) Screen Positive ng/mL (Cutoff = 50) H 05/20/18 20:30
[2018-05-22] MEDS: cefTRIAXone 1,000 MG in Water for inj. (sterile) 20 ML 10 ML IVP SCH (09:41)
--- NOTE | 2018-05-22 12:55 | Discharge Summary ---
- NOTES TO OUTPATIENT PROVIDER Notes to Outpatient Provider: Follow-up with your primary care physician and your neurologist within a week to follow up hospital discharge. Date of Encounter: 05/22/18 Time of Encounter: 12:53 - Discharge Diagnosis (1) Acute encephalopathy Priority: Primary Status: Resolved (2) UTI (urinary tract infection) Priority: Secondary Status: Acute Qualifiers: Urinary tract infection type: acute cystitis Hematuria presence: without hematuria Qualified Code(s): N30.00 - Acute cystitis without hematuria (3) KRISHNA (acute kidney injury) Priority: Secondary Status: Resolved (4) HLD (hyperlipidemia) Priority: Secondary Status: Chronic Qualifiers: Hyperlipidemia type: pure hypercholesterolemia Qualified Code(s): E78.00 - Pure hypercholesterolemia, unspecified; E78.0 - Pure hypercholesterolemia (5) Hypothyroid Priority: Secondary Status: Chronic Qualifiers: Hypothyroidism type: unspecified Qualified Code(s): E03.9 - Hypothyroidism , unspecified (6) Multiple sclerosis Priority: Secondary Status: Chronic (7) CHF (congestive heart failure) Priority: Secondary Status: Chronic Qualifiers: Heart failure type: diastolic Heart failure chronicity: chronic Qualified Code(s): I50.32 - Chronic diastolic (congestive) heart failure (8) Depression Priority: Secondary Status: Chronic Qualifiers: Depression Type: major depressive disorder Major depression recurrence: recurrent Active/Remission status: in remission of unspecified degree Qualified Code(s): F33.40 - Major depressive disorder, recurrent, in remission, unspecified (9) Morbid obesity Priority: Secondary Status: Chronic (10) Schizophrenia Priority: Secondary Status: Chronic Qualifiers: Schizophrenia type: unspecified Qualified Code(s): F20.9 - Schizophrenia, unspecified Hospital course: Ms. Copeland is a 57 year old female past medical history significant for diastolic CHF, hypertension, MS, depression, hyperlipidemia, COPD, hypothyroidism and hypertension. She presented to the emergency room due to change in mental status. As part of the workup a UA was done, which revealed a urinary tract infection. For which the patient was treated with empiric IV antibiotic. Brain MRI was done to r/o stroke of MS flares. IMPRESSION: 1. No acute intracranial abnormality. 2. Stable findings of multiple sclerosis. No new lesions since 02/01/2018 or evidence of active demyelination. 3. Left mastoid effusion. Patient also found to have a Acute kidney injury which resolved with IV fluids. Neurology evaluated the patient and agreed that her change in mental status was more likely due to the Urinary tract infection. Patient symptoms resolved and patient is clinically stable to be discharged home on PO antibiotics to complete treatment for the UTI. - Time Spent with Patient Total time spent providing and/or coordinating discharge services: Less than 30 minutes - Discharge Medications Prescriptions: Amoxicillin/Clavulanate [Augmentin] 875 mg PO BIDWM 5 Days #10 tablet Home Medications: Levothyroxine [Synthroid] 112 mcg PO QAM 09/01/16 [History] Potassium Chloride [Klor-Con 10] 20 meq PO TID 09/01/16 [History] Furosemide [Lasix] 40 mg PO DAILY #30 07/17/17 [Rx] Pantoprazole Sodium [Protonix] 40 mg PO BID #60 tablet. 07/17/17 [Rx] Buspirone HCl [Buspar] 10 mg PO BID 09/19/17 [History] Famotidine [Heartburn Prevention] 20 mg PO DAILY 09/19/17 [History] Nystatin POWDER [Nystop] 1 appl TP BID 09/19/17 [History] Aspirin Enteric Coated [Aspirin EC] 325 mg PO BID #20 tablet. 10/13/17 [Rx] Ibuprofen [Motrin] 600 mg PO BID PRN 10/29/17 [History] Lisinopril-HCTZ 10-12.5 [Prinzide 10-12.5] 1 tab PO DAILY 12/29/17 [History] Albuterol Sulfate [Ventolin Hfa] 2 puff IH BID 02/17/18 [History] Amitriptyline [Elavil] 25 mg PO HS 02/17/18 [History] Budesonide/Formoterol 160/4.5 [Symbicort 160/4.5] 2 puff IH BIDR 02/17/18 [ History] Trazodone HCl 300 mg PO HS 02/17/18 [History] hydrOXYzine pamoate [HydrOXYzine Pamoate] 25 - 50 mg PO BID PRN 02/17/18 [ History] Diphenoxylate/Atropine [Lomotil 2.5 mg/0.025 mg] 1 tab PO QID PRN 15 Days #60 tablet 02/27/18 [Rx] Atorvastatin [Lipitor] 40 mg PO HS 05/20/18 [History] Baclofen 20 mg PO BID PRN 05/20/18 [History] BuPROPion SR (12 HR) [Wellbutrin SR] 150 mg PO BID 05/20/18 [History] Gabapentin [Neurontin] 800 mg PO TID 05/20/18 [History] Sertraline [Zoloft] 200 mg PO DAILY 05/20/18 [History] Amoxicillin/Clavulanate [Augmentin] 875 mg PO BIDWM 5 Days #10 tablet 05/22/18 [ Rx] Allergies/Adverse Reactions: 3 Allergy/AdvReac Type Severity Reaction Status Date / Time vancomycin Allergy Itching Verified 02/17/18 16:19 Date of admission: 05/20/18 17:44 Primary care physician: Johnie Farley MD Consults: 05/21/18 11:13 Consult to Interpret Exam [CONS] Routine Consulting Provider: Kelsey Cuenca I Consult to Interpret Exam: Interpret EEG 05/22/18 07:40 Consult to Ict Business Analyst [CONS] Routine Reason for SW Consult: needs ecf? - Constitutional Vitals: Temp Pulse Resp BP Pulse Ox 97.8 F 84 18 144/85 99 05/22/18 12:31 05/22/18 12:31 05/22/18 12:31 05/22/18 12:31 05/22/18 12:31 Exam: General: Alert and oriented x4. In no acute distress. Skin: Normal color, no rash, no lesions. HEENT: EOM, pupils equal, round and reactive. Cardiovascular: RRR, Normal S1 & S2, no rubs, murmurs or gallops. No JVD. Pulse regular. Lungs: CTA bilaterally, no wheezes, rales or crackles. Abdomen:Obese, Soft, non-tender, no rigidity. Extremities: No deformity, no edema or tenderness, no joint swelling or clubbing. Strength is 5/5 in the upper and lower extr. Neurological:Normal cognition and motor skills. CN II-XII intact. Rest of the physical exam is non contributory - Patient Status Disposition: Home Health Service Condition: Good Functional capacity at discharge: independent ambulation Overall status at discharge: patient is back to baseline - Discharge Instructions Follow Up With: Okolie,Jett, MD [Primary Care Provider] - - Diet and Activity Activity: as per physical therapy Diet: advance to your usual diet
--- NOTE | 2018-05-22 13:13 | Physician Discharge Referral ---
Home Health/Hosp Referral Info Transfer to: Home Health - Diagnosis (1) Acute encephalopathy Priority: Primary Status: Resolved (2) UTI (urinary tract infection) Priority: Secondary Status: Acute (3) KRISHNA (acute kidney injury) Priority: Secondary Status: Resolved (4) HLD (hyperlipidemia) Priority: Secondary Status: Chronic (5) Hypothyroid Priority: Secondary Status: Chronic (6) Multiple sclerosis Priority: Secondary Status: Chronic (7) CHF (congestive heart failure) Priority: Secondary Status: Chronic (8) Depression Priority: Secondary Status: Chronic (9) Morbid obesity Priority: Secondary Status: Chronic (10) Schizophrenia Priority: Secondary Status: Chronic - Respiratory Orders None Smoking Cessation: Smoking cessation has been advised. For more information, call the [employer] Tobacco Quit Line at 2-409-RZEN-NOW. - Diet/Nutrition Diet/Nutrition Orders: Regular - Activity Activity Orders: Ambulate - Services Needed Following services are medically necessary services: Home Health Aide, Physical Therapy, Occupational Therapy - Transfer Medications Prescriptions: Amoxicillin/Clavulanate [Augmentin] 875 mg PO BIDWM 5 Days #10 tablet Home Medications: Levothyroxine [Synthroid] 112 mcg PO QAM 09/01/16 [History] Potassium Chloride [Klor-Con 10] 20 meq PO TID 09/01/16 [History] Furosemide [Lasix] 40 mg PO DAILY #30 07/17/17 [Rx] Pantoprazole Sodium [Protonix] 40 mg PO BID #60 tablet. 07/17/17 [Rx] Buspirone HCl [Buspar] 10 mg PO BID 09/19/17 [History] Famotidine [Heartburn Prevention] 20 mg PO DAILY 09/19/17 [History] Nystatin POWDER [Nystop] 1 appl TP BID 09/19/17 [History] Aspirin Enteric Coated [Aspirin EC] 325 mg PO BID #20 tablet. 10/13/17 [Rx] Ibuprofen [Motrin] 600 mg PO BID PRN 10/29/17 [History] Lisinopril-HCTZ 10-12.5 [Prinzide 10-12.5] 1 tab PO DAILY 12/29/17 [History] Albuterol Sulfate [Ventolin Hfa] 2 puff IH BID 02/17/18 [History] Amitriptyline [Elavil] 25 mg PO HS 02/17/18 [History] Budesonide/Formoterol 160/4.5 [Symbicort 160/4.5] 2 puff IH BIDR 02/17/18 [ History] Trazodone HCl 300 mg PO HS 02/17/18 [History] hydrOXYzine pamoate [HydrOXYzine Pamoate] 25 - 50 mg PO BID PRN 02/17/18 [ History] Diphenoxylate/Atropine [Lomotil 2.5 mg/0.025 mg] 1 tab PO QID PRN 15 Days #60 tablet 02/27/18 [Rx] Atorvastatin [Lipitor] 40 mg PO HS 05/20/18 [History] Baclofen 20 mg PO BID PRN 05/20/18 [History] BuPROPion SR (12 HR) [Wellbutrin SR] 150 mg PO BID 05/20/18 [History] Gabapentin [Neurontin] 800 mg PO TID 05/20/18 [History] Sertraline [Zoloft] 200 mg PO DAILY 05/20/18 [History] Amoxicillin/Clavulanate [Augmentin] 875 mg PO BIDWM 5 Days #10 tablet 05/22/18 [ Rx] Allergies/Adverse Reactions: 3 Allergy/AdvReac Type Severity Reaction Status Date / Time vancomycin Allergy Itching Verified 02/17/18 16:19 Certification: Further, I certify that my clinical findings support that this patient is homebound (i.e. absences from home require considerable and taxing effort and are for medical reasons or gnosticism services or infrequently or short duration when for other reasons) because: Homebound Reason: Patient requires assistance of a person or device to safely leave home Attestation: My signature below is to certify that this patient is under my care and that I, or nurse practitioner, or a physician's supply assistant working with me, has a face-to -face encounter with this patient.
[2018-05-22 20:58] VITALS: BP 147/87
--- NOTE | 2018-06-01 11:08 | EEG/EMG/Oth Biometrics Report ---
EEG Procedure Report Date of procedure: 05/22/18 EEG Procedure: Routine EEG Procedure Note: This is a routine 21 channel digital EEG performed utilizing 10- 20 international electrode placement system. FINDINGS: Patient has a predominant waking background frequency that is average voltage 8 to 10 Hertz alpha activity in the posterior region, normal amplitude symmetrical over the both hemispheres reactive to eyes opening and closing record continued to show alpha activity intermixed with some theta off and on, no abnormal activity recorded, predominantly no evidence of any spike wave discharges or any lateralizing abnormalities, Photic stimulation did not produce any convulsive response. Intermittent EMG artifacts were noted. Stage II sleep was not achieved. Impression: Normal awake drowsy electroencephalogram. No epileptiform discharges or any other paroxysmal activities noted. ( Please note that normal EEG does not exclude the diagnosis of seizures or epilepsy, clinical correlation is suggested)
== END 2018-05-22 21:59 | disposition home health service (06) | DRG 690 ==
LOC: EMEROOARM 01:41 → 2ANU 01:41 → SUATTDRO 03:36 → 2ANU 04:21 → SUATTDRO 17:44
PROVIDERS: ADMIT Internal Medicine; ATTEND Internal Medicine

== ENCOUNTER 2018-10-14 12:11 | Inpatient (IN) ==
[~2018-10-14 12:11] MED LIST: *HR* Etomidate 20 MG/10 ML AMPUL IVP ONE; *HR* Rocuronium Bromide 100 MG/10 ML VIAL IVC ONE
[2018-10-14] MEDS ORDERED: 0.9 % Sodium Chloride 1,000 ML ONE ×2 (12:27→13:06)
[2018-10-14] MEDS ORDERED: 0.9 % Sodium Chloride 1,000 ML IVC ONE (12:28)
[2018-10-14] MEDS ORDERED: Propofol 500 MG/50 ML INFUS..BTL ONE (12:29)
[2018-10-14 12:42] LABS: ABG Base Excess -1 mEq/L (-2 to 3); ABG HCO3 24 mEq/L (21-27); ABG Oxygen Saturation 100 % (95-98); ABG PCO2 43 mmHg (35-45); ABG PH 7.36 pH Units (7.32-7.45); ABG PO2 488 mmHg (85-104); ABG TCO2 26 mEq/L (20-26); Blood Gas Modality ASSIST CONTROL; Blood Gas PEEP 5 cm H2O; Blood Gas Respiration Rate 12; Blood Gas VT 500 cc
[2018-10-14] MEDS ORDERED: *HR* Etomidate 20 MG/10 ML AMPUL IVP ONE (12:52)
[2018-10-14] MEDS ORDERED: *HR* Rocuronium Bromide 50 MG/5 ML VIAL IVP ONE (12:52)
[2018-10-14 12:57] LABS: Basophils % 0.3 %; Eosinophils # 0.2 K/mcL (0.0-0.6); Eosinophils % 2.3 %; Hematocrit 31.9 % (35.3-44.9); Hemoglobin 10.2 g/dL (11.5-15.4); Immature Granulocytes % 0.3 % (0-4); Lymphocytes # 0.7 K/mcL (0.6-4.6); Lymphocytes % 10.7 %; Mean Corpuscular Hemoglobin 29.7 pg (28.0-33.3); Mean Platelet Volume 11.2 fL (9.4-12.4); Monocytes # 0.4 K/mcL (0.0-1.3); Monocytes % 6.5 %; Neutrophils # 5.1 K/mcL (1.6-8.9); Platelet Count 171 K/mcL (140-400); Red Blood Count 3.43 M/mcL (3.82-4.97); Red Cell Distribution Width 14.9 % (11.5-14.5); Segmented Neutrophils % 79.9 %
[2018-10-14 13:07] LABS: INR 0.9; Prothrombin Time 10.6 Seconds (9.4-12.1)
--- NOTE | 2018-10-14 13:08 | Emergency Department Note ---
Disposition Clinical Impression: Altered mental status Qualifiers: Altered mental status type: unspecified Qualified Code(s): R41.82 - Altered mental status, unspecified Disposition: Admitted As Inpatient Condition: Good General Adult HPI - General Chief complaint: ED Overdose Stated complaint: Overdose Time Seen by Provider: 10/14/18 12:13 Source: patient, EMS Mode of arrival: EMS Limitations: altered mental status, other Nursing Notes Reviewed: Yes Vital Signs Reviewed: Yes - History of Present Illness HPI Narrative: 58-year-old female unknown medical history presents due to altered mental status. History is obtained from EMS reports they were called by the to a private residence where they found her mostly unresponsive. They state that the says that she was acting like this since waking up this morning. She was fine yesterday. No other information was obtained. She received 2 mg of Narcan just prior to arrival without any improvement in her mental status. Onset (ago): hour(s) Pain Scale: 0 Improves with: nothing Worsens with: nothing Treatments Prior to Arrival: other (2 mg Narcan) - Related Data Home Medications Medication Instructions Recorded Confirmed Famotidine [Heartburn Prevention] 20 mg PO DAILY 09/19/17 09/26/18 Lisinopril-HCTZ 10-12.5 [Prinzide 1 tab PO DAILY 12/29/17 09/26/18 10-12.5] Amitriptyline [Elavil] 25 mg PO HS 02/17/18 09/26/18 Budesonide/Formoterol 160/4.5 2 puff IH BIDR 02/17/18 09/26/18 [Symbicort 160/4.5] BuPROPion SR (12 HR) [Wellbutrin 150 mg PO BID 05/20/18 09/26/18 SR] Sertraline [Zoloft] 200 mg PO DAILY 05/20/18 09/26/18 Dalfampridine [Dalfampridine ER] 10 mg PO BID 08/31/18 09/26/18 Albuterol Sulfate [Ventolin Hfa] 2 puff IH Q4H PRN 09/26/18 09/26/18 Atorvastatin [Lipitor] 40 mg PO HS 09/26/18 09/26/18 Cholecalciferol (Vitamin D3) 50,000 unit PO QWEEK 09/26/18 09/26/18 [Dialyvite Vitamin D3 Max] Diphenoxylate/Atropine [Lomotil 1 tab PO TID PRN 09/26/18 09/26/18 2.5 mg/0.025 mg] Potassium Chloride [Klor-Con 10] 30 meq PO BID 09/26/18 09/26/18 Promethazine [Phenergan] 25 mg PO Q8HR PRN 09/26/18 09/26/18 Teriflunomide [Aubagio] 14 mg PO DAILY 09/26/18 09/26/18 Previous Rx's Medication Instructions Recorded Levothyroxine [Synthroid] 125 mcg PO DAILY@0630 #30 tablet 09/03/18 Gabapentin [Neurontin] 300 mg PO TID #90 capsule 10/03/18 Allergies Allergy/AdvReac Type Severity Reaction Status Date / Time vancomycin Allergy Itching Verified 02/17/18 16:19 Limitations: ROS unobtainable due to patients medical condition Past Medical History - Past Medical History Source: old records reviewed Medical history: Reports: cancer, CHF, COPD, GERD, hyperlipidemia, thyroid disease Surgical history: Reports: appendectomy, breast surgery, knee replacement, other Psychiatric history: Reports: anxiety, depression, previous psychiatric hospitalization [employer] history: Reports: bilateral tubal ligation - Social History Smoking Status: Current every day smoker Smokeless Tobacco Status: No Alcohol use: Reports: none Drug use: Reports: marijuana Physical Exam - General Limitations: altered mental status, other General appearance: obtunded - Head Head exam: atraumatic, normocephalic, normal inspection - Eye Eye exam: Present: normal appearance, PERRL - ENT ENT exam: normal exam - Neck Neck exam: Present: normal inspection - Chest Chest inspection: Present: normal inspection, symmetric chest wall rise - Respiratory Respiratory exam: Present: normal lung sounds bilaterally - Cardiovascular Cardiovascular exam: Present: regular rate, normal rhythm, normal heart sounds - Abdominal Exam Abdominal exam: Present: soft. Absent: distention, rigidity - Extremities Exam Extremities exam: Present: normal inspection - Expanded Upper Extremity Exam Shoulder exam: Present: normal inspection Arm exam: Present: normal inspection Elbow exam: Present: normal inspection Forearm/Wrist exam: Present: normal inspection Hand exam: Present: normal inspection - Expanded Lower Extremity Exam Hip/Pelvis exam: Present: normal inspection Upper leg exam: Present: normal inspection Knee exam: Present: normal inspection Lower leg exam: Present: normal inspection Ankle exam: Present: normal inspection Foot/toe exam: Present: normal inspection - Expanded Neurological Exam Coma Scale Eye Opening: To Pain Coma Scale Motor Response: Withdraws to Pain Coma Scale Verbal Response: Incomprehensible Coma Scale Total: 8 - Skin Skin exam: Present: warm, dry Course Course Narrative: Patient seen and examined. She has an initial GCS of 8. No improvement with Narcan. Patient intubated for airway protection. Plan for CT imaging, labs and admission to the intensive care unit. Vital Signs Temperature 97.9 F 10/14/18 12:22 Pulse Rate 87 10/14/18 12:22 Respiratory Rate 20 10/14/18 12:22 Blood Pressure 125/78 10/14/18 12:22 O2 Sat by Pulse Oximetry 100 10/14/18 12:22 Temperature 97.9 F 10/14/18 12:22 Pulse Rate 105 10/14/18 13:36 Respiratory Rate 20 10/14/18 13:36 Blood Pressure 157/85 10/14/18 13:36 O2 Sat by Pulse Oximetry 100 10/14/18 13:36 Oxygen Delivery Oxygen Delivery Ventilator Procedures - Intubation sedative: Etomidate Mg Given: 20 paralytic: Rocuronium Mg Given: 100 Laryngoscope: Nilesh ET Tube Size: 7.5 ET Tube Uncuffed: No Tube Secured Depth (cm): 23 Tube Secured Location: lips Tube Placement Confirmation: visualized tube passing through cords, equal breath sounds bilaterally, no breath sounds over epigastrium, confirmation by capnometry Patient Tolerated Procedure: well Intubation Complications: none Medical Decision Making - [facility] Narrative Medical decision making narrative: 58-year-old female presenting for altered mental status. She had a GCS of 8 initially here. Not following commands thus intubated. I reviewed her past visits demonstrating a very similar presentation requiring intubation at which point was found that she was taking extra gabapentin. Her labs and imaging are grossly unremarkable. She is admitted to the intensive care unit for further management. - Lab Data Lab results reviewed: Yes I reviewed the patient's lab results. Result diagrams: 10/14/18 12:35 10/14/18 12:35 Lab Results 10/14/18 10/14/18 10/14/18 Range/Units 12:19 12:35 12:35 WBC 6.4 (4.3-11.1) K/mcL RBC 3.43 L (3.82-4.97) M/mcL Hgb 10.2 L (11.5-15.4) g/dL Hct 31.9 L (35.3-44.9) % MCV 93.0 (83.0-100.0) fL MCH 29.7 (28.0-33.3) pg MCHC 32.0 (31.6-35.5) g/dL RDW 14.9 H (11.5-14.5) % Plt Count 171 (140-400) K/mcL MPV 11.2 (9.4-12.4) fL Immature Gran % 0.3 (0-4) % Seg Neutrophils % 79.9 % Lymphocytes % 10.7 % Monocytes % 6.5 % Eosinophils % 2.3 % Basophils % 0.3 % Neutrophils # 5.1 (1.6-8.9) K/mcL Lymphocytes # 0.7 (0.6-4.6) K/mcL Monocytes # 0.4 (0.0-1.3) K/mcL Eosinophils # 0.2 (0.0-0.6) K/mcL Basophils # 0.0 (0.0-0.2) K/mcL PT (9.4-12.1) Seconds INR APTT (26.0-36.0) Seconds ABG pH (7.32-7.45) pH Units ABG pCO2 (35-45) mmHg ABG pO2 (85-104) mmHg ABG HCO3 (21-27) mEq/L ABG Total CO2 (20-26) mEq/L ABG O2 Saturation (95-98) % ABG Base Excess (-2 to 3) mEq/L Respiration Rate O2 Delivery Device Blood Gas Modality Inspired O2 (1-15=lpm [id number]=%) Tidal Volume cc PEEP cm H2O Sodium (136-145) mEq/L Potassium (3.5-5.1) mEq/L Chloride (98-107) mEq/L Carbon Dioxide (23-29) mEq/L BUN (6-20) mg/dL Creatinine (0.60-1.20) mg/dL Est GFR ( Amer) (> 60) Est GFR (Non-Af Amer) (> 60) BUN/Creatinine Ratio (6-26) Glucose (70-105) mg/dL POC Glucose 83 (70-99) mg/dL Calculated Osmolality (280-300) Calcium (8.6-10.3) mg/dL Total Bilirubin (0.3-1.0) mg/dL Direct Bilirubin (0.0-0.2) mg/dL Indirect Bilirubin (0.0-1.2) mg/dL AST (13-39) Units/L ALT (7-52) Units/L Alkaline Phosphatase (34-104) Units/L Ammonia 34 (16-53) mcmol/L Troponin I (< 0.04) ng/mL Serum Total Protein (6.4-8.9) g/dL Albumin (3.5-5.7) g/dL Globulin (2.4-3.5) g/dL Albumin/Globulin Ratio (1.1-2.2) TSH (0.340-5.600) mcIU/mL Urine Color (Yellow) Urine Clarity (Clear) Urine pH (5.0-8.0) pH Units Ur Specific [place] (1.010-1.025) Urine Protein (Neg-Trace) mg/dL Urine Glucose (UA) (Normal) mg/dL Urine Ketones (Negative) mg/dL Urine Blood (Negative) Urine Nitrite (Negative) Urine Bilirubin (Negative) Urine Urobilinogen (Normal) mg/dL Ur Leukocyte Esterase (Negative) Ur Culture Indicated? (NO) Urine Opiates Screen (Nszsdz=439) ng/mL Ur Barbiturates Screen (Ugknbt=893) ng/mL Ur Phencyclidine Scrn (Cutoff=25) ng/mL Ur Amphetamines Screen (Glbmmp=8236) ng/mL U Benzodiazepines Scrn (Owoxml=348) ng/mL Urine Cocaine Screen (Cutoff= 300) ng/mL U Marijuana (THC) Screen (Cutoff = 50) ng/mL Ur Drug Screen Interp Ethyl Alcohol (Less than 10) mg/dL 10/14/18 10/14/18 10/14/18 Range/Units 12:35 12:35 12:38 WBC (4.3-11.1) K/mcL RBC (3.82-4.97) M/mcL Hgb (11.5-15.4) g/dL Hct (35.3-44.9) % MCV (83.0-100.0) fL MCH (28.0-33.3) pg MCHC (31.6-35.5) g/dL RDW (11.5-14.5) % Plt Count (140-400) K/mcL MPV (9.4-12.4) fL Immature Gran % (0-4) % Seg Neutrophils % % Lymphocytes % % Monocytes % % Eosinophils % % Basophils % % Neutrophils # (1.6-8.9) K/mcL Lymphocytes # (0.6-4.6) K/mcL Monocytes # (0.0-1.3) K/mcL Eosinophils # (0.0-0.6) K/mcL Basophils # (0.0-0.2) K/mcL PT 10.6 (9.4-12.1) Seconds INR 0.9 APTT 27.6 (26.0-36.0) Seconds ABG pH 7.36 (7.32-7.45) pH Units ABG pCO2 43 (35-45) mmHg ABG pO2 488 H (85-104) mmHg ABG HCO3 24 (21-27) mEq/L ABG Total CO2 26 (20-26) mEq/L ABG O2 Saturation 100 H (95-98) % ABG Base Excess -1 (-2 to 3) mEq/L Respiration Rate 12 O2 Delivery Device Adult Vent Blood Gas Modality ASSIST CONTROL Inspired O2 100.0 (1-15=lpm [id number]=%) Tidal Volume 500 cc PEEP 5 cm H2O Sodium 145 (136-145) mEq/L Potassium 4.1 (3.5-5.1) mEq/L Chloride 113 H (98-107) mEq/L Carbon Dioxide 24 (23-29) mEq/L BUN 10 (6-20) mg/dL Creatinine 1.00 (0.60-1.20) mg/dL Est GFR ( Amer) > 60 (> 60) Est GFR (Non-Af Amer) 57 L (> 60) BUN/Creatinine Ratio 10 (6-26) Glucose 106 H (70-105) mg/dL POC Glucose (70-99) mg/dL Calculated Osmolality 299 (280-300) Calcium 9.2 (8.6-10.3) mg/dL Total Bilirubin 0.3 (0.3-1.0) mg/dL Direct Bilirubin 0.0 (0.0-0.2) mg/dL Indirect Bilirubin 0.3 (0.0-1.2) mg/dL AST 9 L (13-39) Units/L ALT 10 (7-52) Units/L Alkaline Phosphatase 116 H (34-104) Units/L Ammonia (16-53) mcmol/L Troponin I < 0.03 (< 0.04) ng/mL Serum Total Protein 6.2 L (6.4-8.9) g/dL Albumin 3.8 (3.5-5.7) g/dL Globulin 2.4 (2.4-3.5) g/dL Albumin/Globulin Ratio 1.6 (1.1-2.2) TSH 3.573 (0.340-5.600) mcIU/mL Urine Color (Yellow) Urine Clarity (Clear) Urine pH (5.0-8.0) pH Units Ur Specific [place] (1.010-1.025) Urine Protein (Neg-Trace) mg/dL Urine Glucose (UA) (Normal) mg/dL Urine Ketones (Negative) mg/dL Urine Blood (Negative) Urine Nitrite (Negative) Urine Bilirubin (Negative) Urine Urobilinogen (Normal) mg/dL Ur Leukocyte Esterase (Negative) Ur Culture Indicated? (NO) Urine Opiates Screen (Lcrohw=078) ng/mL Ur Barbiturates Screen (Bruaxt=135) ng/mL Ur Phencyclidine Scrn (Cutoff=25) ng/mL Ur Amphetamines Screen (Ihgscb=6196) ng/mL U Benzodiazepines Scrn (Usootj=267) ng/mL Urine Cocaine Screen (Cutoff= 300) ng/mL U Marijuana (THC) Screen (Cutoff = 50) ng/mL Ur Drug Screen Interp Ethyl Alcohol < 10 (Less than 10) mg/dL 10/14/18 10/14/18 Range/Units 13:05 13:05 WBC (4.3-11.1) K/mcL RBC (3.82-4.97) M/mcL Hgb (11.5-15.4) g/dL Hct (35.3-44.9) % MCV (83.0-100.0) fL MCH (28.0-33.3) pg MCHC (31.6-35.5) g/dL RDW (11.5-14.5) % Plt Count (140-400) K/mcL MPV (9.4-12.4) fL Immature Gran % (0-4) % Seg Neutrophils % % Lymphocytes % % Monocytes % % Eosinophils % % Basophils % % Neutrophils # (1.6-8.9) K/mcL Lymphocytes # (0.6-4.6) K/mcL Monocytes # (0.0-1.3) K/mcL Eosinophils # (0.0-0.6) K/mcL Basophils # (0.0-0.2) K/mcL PT (9.4-12.1) Seconds INR APTT (26.0-36.0) Seconds ABG pH (7.32-7.45) pH Units ABG pCO2 (35-45) mmHg ABG pO2 (85-104) mmHg ABG HCO3 (21-27) mEq/L ABG Total CO2 (20-26) mEq/L ABG O2 Saturation (95-98) % ABG Base Excess (-2 to 3) mEq/L Respiration Rate O2 Delivery Device Blood Gas Modality Inspired O2 (1-15=lpm [id number]=%) Tidal Volume cc PEEP cm H2O Sodium (136-145) mEq/L Potassium (3.5-5.1) mEq/L Chloride (98-107) mEq/L Carbon Dioxide (23-29) mEq/L BUN (6-20) mg/dL Creatinine (0.60-1.20) mg/dL Est GFR ( Amer) (> 60) Est GFR (Non-Af Amer) (> 60) BUN/Creatinine Ratio (6-26) Glucose (70-105) mg/dL POC Glucose (70-99) mg/dL Calculated Osmolality (280-300) Calcium (8.6-10.3) mg/dL Total Bilirubin (0.3-1.0) mg/dL Direct Bilirubin (0.0-0.2) mg/dL Indirect Bilirubin (0.0-1.2) mg/dL AST (13-39) Units/L ALT (7-52) Units/L Alkaline Phosphatase (34-104) Units/L Ammonia (16-53) mcmol/L Troponin I (< 0.04) ng/mL Serum Total Protein (6.4-8.9) g/dL Albumin (3.5-5.7) g/dL Globulin (2.4-3.5) g/dL Albumin/Globulin Ratio (1.1-2.2) TSH (0.340-5.600) mcIU/mL Urine Color Yellow (Yellow) Urine Clarity Clear (Clear) Urine pH 5.5 (5.0-8.0) pH Units Ur Specific [place] 1.014 (1.010-1.025) Urine Protein Negative (Neg-Trace) mg/dL Urine Glucose (UA) Normal (Normal) mg/dL Urine Ketones Negative (Negative) mg/dL Urine Blood Negative (Negative) Urine Nitrite Negative (Negative) Urine Bilirubin Negative (Negative) Urine Urobilinogen Normal (Normal) mg/dL Ur Leukocyte Esterase Negative (Negative) Ur Culture Indicated? NO (NO) Urine Opiates Screen Negative (Yyoryh=584) ng/mL Ur Barbiturates Screen Negative (Bvpkla=460) ng/mL Ur Phencyclidine Scrn Negative (Cutoff=25) ng/mL Ur Amphetamines Screen Negative (Jttlsm=1660) ng/mL U Benzodiazepines Scrn Negative (Wkovvx=399) ng/mL Urine Cocaine Screen Negative (Cutoff= 300) ng/mL U Marijuana (THC) Screen Positive H (Cutoff = 50) ng/mL Ur Drug Screen Interp See Below Ethyl Alcohol (Less than 10) mg/dL - Radiology Data Radiology results reviewed: Yes I reviewed the patient's radiology results. Cervical Spine CT 10/14/18 12:29 IMPRESSION: No acute abnormality of the cervical spine. Multifocal airspace disease involving the lungs bilaterally, incompletely evaluated. Cannot exclude evolving pulmonary edema or multilobar pneumonia. D/ / 10/14/2018 13:54:23 Ivan Montilla MD / [facility] Interpreting Provider: Ivan Montilla MD Chest X-Ray 10/14/18 12:29 IMPRESSION: Low lung volumes. No acute cardiopulmonary process. Endotracheal tube is positioned 3.7 cm above the tyree. D/ / 10/14/2018 12:58:14 Ivan Montilla MD / [facility] Interpreting Provider: Ivan Montilla MD Head CT 10/14/18 12:29 IMPRESSION: No acute intracranial abnormality. Stable atrophy and chronic microvascular ischemic change. D/ / 10/14/2018 13:49:55 Ivan Montilla MD / [facility] Interpreting Provider: Ivan Montilla MD Pelvis X-Ray 10/14/18 12:44 IMPRESSION: 1. No acute osseous abnormality in the pelvis. D/ / Guillermo Lovell MD / Guillermo Lovell MD Interpreting Provider: Guillermo Lovell MD - EKG Data EKG #1 EKG attestation: Yes I reviewed and interpreted this EKG. EKG results narrative: EKG demonstrates sinus rhythm with a rate of 69 bpm. Left axis deviation. Normal intervals. Normal R-wave progression. No gross ST elevations or depressions. No acute ischemic findings. Critical Care Time Critical Care Time: Yes Total Critical Care Time: 35 Attestation: Echo care time 35 minutes managing patient's mental status change. S.B.A.R. - S.B.A.R. Situation: Demographics, MOA Background: Presenting Complaint, Relevant PMH, Meds, & Allergies Assessment: Course and respsone to treatment, Exam Concerns, Patient/Family Expectation, Pertinant Lab Results Recommendation: Barrier(s) to disposition, Recommendation based on pending studies, treatments, or consults S.B.A.R. Report Given to: Dr. Ochoa Attestation Statement - Attestation Attestation: Patient was seen with resident physician. I reviewed the history, physical, assessment and plan, and agree with the findings. I also personally evaluated this patient and had [id number] time with this patient. 58-year-old female presents to the emergency department unresponsive. Apparently EMS was called to the patient's private residence, at the request of her , who found her unresponsive this morning. He told EMS she was fine yesterday. Patient is supple provides no history whatsoever. Review of systems unable secondary to patient condition. Physical exam. Vital signs are stable. Heart regular rhythm and rate. Lungs clear. Abdomen is soft nontender. Extremities does not have any gross deformi ty. Has some movement in all extremities. Neurologically the patient can be aroused very very briefly to deep sternal rub. Pupils are equal and reactive. Unable to fully complete neurology exam secondary to patient condition. Skin no obvious rashes patient was noted to have bed bugs on her closed. ED course. Patient was not managing her airway well. She was very difficult to respond and she received Narcan via EMS without response. For this reason she was taken to the trauma room and that rapid sequence intubation was performed by resident physician. I was therefore the entirety of the present of the intubation procedure. Patient hemodynamically remained stable through that as well. CT scans of the head and neck were performed chest x-ray also was performed. Patient will be admitted to the intensive care unit. In review of her medical history it was determined that she has had several overdoses for gabapentin. Including one relatively recently was resulted in intubation as well. Patient struck screen was positive for marijuana. Other testing that was done did not reveal acute source of abnormalities. Or anything that would cause her mental status to be what it was. I think this is probably another overdose.
[2018-10-14 13:09] LABS: Activated Partial Thrombo Time 27.6 Seconds (26.0-36.0)
[2018-10-14 13:19] LABS: Bilirubin,Urine Negative (Negative); Blood,Urine Negative (Negative); Clarity,Urine Clear (Clear); Color,Urine Yellow (Yellow); Glucose,Urine (UA) Normal (Normal); Ketones,Urine Negative (Negative); Leukocyte Esterase,Urine Negative (Negative); Nitrite,Urine Negative (Negative); PH,Urine 5.5 pH Units (5.0-8.0); Protein,Urine Negative (Neg-Trace); Specific Gravity,Urine 1.014 (1.010-1.025); Urobilinogen,Urine Normal (Normal)
[2018-10-14 13:20] LABS: Troponin I < 0.03 ng/mL (< 0.04)
[2018-10-14 13:21] LABS: Alanine Aminotransferase 10 Units/L (7-52); Albumin 3.8 g/dL (3.5-5.7); Albumin/Globulin Ratio 1.6 (1.1-2.2); Alkaline Phosphatase 116 Units/L (34-104); Aspartate Amino Transferase 9 Units/L (13-39); BUN/Creatinine Ratio 10 (6-26); Bilirubin,Indirect 0.3 mg/dL (0.0-1.2); Bilirubin,Total 0.3 mg/dL (0.3-1.0); Blood Urea Nitrogen 10 mg/dL (6-20); Calcium 9.2 mg/dL (8.6-10.3); Carbon Dioxide 24 mEq/L (23-29); Chloride 113 mEq/L (98-107); Ethanol < 10 mg/dL (Less than 10); Globulin 2.4 g/dL (2.4-3.5); Glucose 106 mg/dL (70-105); Osmolality,Calculated 299 (280-300); Potassium 4.1 mEq/L (3.5-5.1); Sodium 145 mEq/L (136-145); Total Protein 6.2 g/dL (6.4-8.9); eGFR For Non-African Americans 57 (> 60)
[2018-10-14 13:33] LABS: Thyroid Stimulating Hormone 3.573 mcIU/mL (0.340-5.600)
[2018-10-14 14:04] LABS: Amphetamine Screen,Urine Negative ng/mL (Cutoff=1000); Barbiturate Screen,Urine Negative ng/mL (Cutoff=200); Benzodiazepines Screen,Urine Negative ng/mL (Cutoff=200); Cannabinoid Screen,Urine Positive ng/mL (Cutoff = 50); Cocaine Screen,Urine Negative ng/mL (Cutoff= 300); Opiate Screen,Urine Negative ng/mL (Cutoff=300); Phencyclidine Screen,Urine Negative ng/mL (Cutoff=25)
[2018-10-14] MEDS ORDERED: Acetaminophen 325 MG TABLET PO PRN (14:43)
[2018-10-14] MEDS ORDERED: Naloxone 0.4 MG/ML INJ IVP PRN (14:43)
--- NOTE | 2018-10-14 15:22 | Internal Med History&Physical ---
Date of Encounter: 10/14/18 Time of Encounter: 15:16 Internal Medicine - H&P: HPI Chief complaint: Obtunded Admitted From: Emergency Dept History of present illness: Connie Copeland is a 58 F w hx multiple sclerosis, morbid obesity, smoker, THC use, COPD, HTN, HLD, GERD, hypothyroidism, anx/dep, chronic pain, who presents with obtundation. Hx obtained per chart review and speaking with ED physician. Per history, patient's called EMS because she was nearly unresponsive. Was fine yesterday per EMS report. Upon arrival to ED, pt not protecting airway and without response to sternal rub, no improvement with narcan, not hypoglycemic, and therefore intubated for airway protection. CT head unremarkable. CT c-spine caught upper half of lung morgan which show stable bilateral airspace disease but SIRS 0/4 and requiring minimal vent settings. Notably, pt found to have bedbugs. Of note, patient recently admitted 3 weeks ago for similar presentation of AMS/unresponsiveness, underwent extensive workup including head CT and MRI, EEG, and TTE, of which all were unremarkable. [place] related to gabapentin OD as her mental status gradually improved spontaneously. At discharge was instructed to PMH: cancer, morbid obesity, COPD, GERD, HLD, thyroid disease, anx/dep PSH: appy, breast surgery, TKA SH: smoker, THC use FH: reviewed chart, no noted relevant FHx Allergies: vanc Past Med Surg Social Fam HX - Past Medical History Medical history: cancer, CHF, COPD, GERD, hyperlipidemia, thyroid disease Additional medical history: MS Psychiatric history: anxiety, depression, previous psychiatric hospitalization - Past Surgical History Surgical History: appendectomy, breast surgery, knee replacement, other Additional surgical history: Breast reduction - Social History Smoking Status: Current every day smoker Smokeless Tobacco Status: No Alcohol use: none Drug use: marijuana - Family History Brother Family Member Ethnicity: Non- Living Status: Still Living Sister Family Member Ethnicity: Non- Living Status: Still Living Father Family Member Ethnicity: Non- Living Status: Hx Family Cardiac Disorders: Yes (CAD) Hx Family Respiratory Disorders: Yes (COPD) Hx Family Cancer: No Hx Family GI Disorders: No Hx Family Endocrine Disorder: No Hx Family Neuromuscular Disorders: No Hx Family Neurologic Disorders: No Hx Family HEENT Disorders: No Hx Family Autoimmune Disorders: No Mother Family Member Ethnicity: Non- Living Status: Hx Family Cardiac Disorders: No Hx Family Respiratory Disorders: No Hx Family Cancer: No Hx Family GI Disorders: No Hx Family Endocrine Disorder: No Hx Family Neuromuscular Disorders: No Hx Family Neurologic Disorders: No Hx Family HEENT Disorders: No Hx Family Autoimmune Disorders: No Internal Medicine - H&P: Meds Famotidine [Heartburn Prevention] 20 mg PO DAILY 09/19/17 [History] Lisinopril-HCTZ 10-12.5 [Prinzide 10-12.5] 1 tab PO DAILY 12/29/17 [History] Amitriptyline [Elavil] 25 mg PO HS 02/17/18 [History] Budesonide/Formoterol 160/4.5 [Symbicort 160/4.5] 2 puff IH BIDR 02/17/18 [History] BuPROPion SR (12 HR) [Wellbutrin SR] 150 mg PO BID 05/20/18 [History] Sertraline [Zoloft] 200 mg PO DAILY 05/20/18 [History] Dalfampridine [Dalfampridine ER] 10 mg PO BID 08/31/18 [History] Levothyroxine [Synthroid] 125 mcg PO DAILY@0630 #30 tablet 09/03/18 [Rx] Albuterol Sulfate [Ventolin Hfa] 2 puff IH Q4H PRN 09/26/18 [History] Atorvastatin [Lipitor] 40 mg PO HS 09/26/18 [History] Cholecalciferol (Vitamin D3) [Dialyvite Vitamin D3 Max] 50,000 unit PO QWEEK 09/26/18 [History] Diphenoxylate/Atropine [Lomotil 2.5 mg/0.025 mg] 1 tab PO TID PRN 09/26/18 [History] Potassium Chloride [Klor-Con 10] 30 meq PO BID 09/26/18 [History] Promethazine [Phenergan] 25 mg PO Q8HR PRN 09/26/18 [History] Teriflunomide [Aubagio] 14 mg PO DAILY 09/26/18 [History] Gabapentin [Neurontin] 300 mg PO TID #90 capsule 10/03/18 [Rx] Allergy/AdvReac Type Severity Reaction Status Date / Time vancomycin Allergy Itching Verified 02/17/18 16:19 ROS unobtainable: due to endotracheal tube, due to mental status All Systems PM: A 10-system review of systems was performed and is negative for pertinent findings except as documented above in the HPI. - Constitutional Vitals: Temp Pulse Resp BP Pulse Ox 97.9 F 105 20 157/85 100 10/14/18 12:22 10/14/18 13:36 10/14/18 13:36 10/14/18 13:36 10/14/18 13:36 Exam: General: NAD, intubated and sedated Head: Atraumatic, normocephalic. Face symmetric Eyes: EOMI, sclerae anicteric ENT: Mucous membranes dry. Trachea midline. Thoracic: No visible chest wall deformities. Bilateral anterior coarse breath sounds and mechanical breath sounds Cardio: Normal S1 and S2, regular rate and rhythm, no murmurs. unable to a ppreciate JVD given habitus Abdomen: Soft, nontender, nondistended. Bowel sounds present. No rebound Extremities: Warm, well perfused. DP pulses 2+ b/l. No clubbing, cyanosis. Does have pitting edema b/l LE Skin: Intact. No rashes, bruises, or ulcers Neuro: sedated, does awake to gentle physical stimulation and loud voice on my exam, inattentive and obtunded, does not follow commands, pupils equal and reactive Internal Med - H&P Results - Labs CBC & Chem 7: 10/14/18 12:35 10/14/18 12:35 Labs: Short CBC 10/14/18 Range/Units 12:35 WBC 6.4 (4.3-11.1) K/mcL Hgb 10.2 L (11.5-15.4) g/dL Hct 31.9 L (35.3-44.9) % Plt Count 171 (140-400) K/mcL Neutrophils # 5.1 (1.6-8.9) K/mcL BMP 10/14/18 12:35 Sodium 145 Potassium 4.1 Chloride 113 H Carbon Dioxide 24 BUN 10 Creatinine 1.00 Glucose 106 H Calcium 9.2 Cardiac Enzymes 10/14/18 Range/Units 12:35 Troponin I < 0.03 (< 0.04) ng/mL Liver Function 10/14/18 Range/Units 12:35 Total Bilirubin 0.3 (0.3-1.0) mg/dL Direct Bilirubin 0.0 (0.0-0.2) mg/dL AST 9 L (13-39) Units/L ALT 10 (7-52) Units/L Alkaline Phosphatase 116 H (34-104) Units/L Albumin 3.8 (3.5-5.7) g/dL Urine 10/14/18 Range/Units 13:05 Urine Color Yellow (Yellow) Urine Clarity Clear (Clear) Urine pH 5.5 (5.0-8.0) pH Units Ur Specific [place] 1.014 (1.010-1.025) Urine Protein Negative (Neg-Trace) mg/dL Urine Glucose (UA) Normal (Normal) mg/dL - ABG Interpretation ABG results: 10/14/18 12:38 ABG pH 7.36 ABG pCO2 43 ABG pO2 488 H ABG HCO3 24 ABG Total CO2 26 ABG O2 Saturation 100 H ABG Base Excess -1 - Impressions ITS Impressions Cervical Spine CT 10/14/18 12:29 IMPRESSION: No acute abnormality of the cervical spine. Multifocal airspace disease involving the lungs bilaterally, incompletely evaluated. Cannot exclude evolving pulmonary edema or multilobar pneumonia. D/ / 10/14/2018 13:54:23 Ivan Montilla MD / [facility] Interpreting Provider: Ivan Montilla MD Chest X-Ray 10/14/18 12:29 IMPRESSION: Low lung volumes. No acute cardiopulmonary process. Endotracheal tube is positioned 3.7 cm above the tyree. D/ / 10/14/2018 12:58:14 Ivan Montilla MD / [facility] Interpreting Provider: Ivan Montilla MD Head CT 10/14/18 12:29 IMPRESSION: No acute intracranial abnormality. Stable atrophy and chronic microvascular ischemic change. D/ / 10/14/2018 13:49:55 Ivan Montilla MD / [facility] Interpreting Provider: Ivan Montilla MD Pelvis X-Ray 10/14/18 12:44 IMPRESSION: 1. No acute osseous abnormality in the pelvis. D/ / Guillermo Lovell MD / Guillermo Lovell MD Interpreting Provider: Guillermo Lovell MD - Assessment and plan (1) Toxic metabolic encephalopathy Current Visit: Yes Status: Acute Assessment and plan: Connie Copeland is a 58 F w hx multiple sclerosis, morbid obesity, smoker, THC use, COPD, HTN, HLD, GERD, hypothyroidism, anx/dep, chronic pain, and recent adm ission for gabapentin and polypharmacy overdose who presents with unresponsiveness, GCS<8, intubated in ED for airway protection, with no other lab abnormalities to suggest metabolic insult, felt to likely represent overdose. Acute hypoxic respiratory failure: intubated for airway protection, requiring minimal vent settings - low tidal volume ventilation for now, if/when patient begins to wake will switch to pressure control - sedated for intubation but will wean propofol, would favor fentanyl prn pain and then use propofol if starts fighting the vent - SAT/SBT in AM - low threshhold for Pulm and Neuro consultations Acute toxic metabolic encephalopathy: suspicious for gabapentin OD, had ex tensive eval 3 weeks ago for same presentation, will not repeat, renal fxn ok - hold all centrally acting meds - monitor for improvement - ED pharmacist to call dispensing pharmacies (local and mail order) to cancer any remaining gabapentin refills Bilateral lung infiltrates on chest CT: images similar from previous admission, SIRS 0/4 and requiring low vent settings but does have lots of oral secretions, possibly some degree of edema or aspiration pneumonitis, will defer empiric therapy at this point Chronic mild normocytic anemia: likely 2/2 chronic disease, monitor and maintain Hb >7 Morbid obesity: BMI 43 MS: holding aubagio and dalfampridine Chronic pain: holding gabapentin and HTN: holding lisinopril/hctz HLD: home statin Hypothyroidism: home synthroid COPD: home inhalers when able, nebs q6h resp THC use disorder: Utox positive Smoker: will offer nicotine patch when awake PPx: lovenox FEN: NPO, no MIVF Lines: PIV, Kang, ET, OG Consults: Code: Full Dispo: patient requires inpatient eval and management at this time. Anticipate 3-4 days. Will likely be homegoing - Time Spent With Patient Total time spent is greater than 50% in coordination of care (as documented) at patient's floor/unit and/or counseling patient:
[2018-10-14] MEDS ORDERED: *HR* FentaNYL (PF) 100 MCG/2 ML VIAL IVP PRN (15:54)
[2018-10-14] MEDS ORDERED: Artificial Tears SOLN 15 ML BOTTLE BOTH EYES PRN (16:43)
[2018-10-14] MEDS: Famotidine 20 MG/2 ML VIAL IVP SCH (18:00)
[2018-10-14] MEDS ORDERED: Ipratropium/Albuterol Neb 3 ML ONE (18:07)
[2018-10-14] MEDS: Ipratropium/Albuterol Neb 3 ML IH SCH ×2 (18:12→21:25)
[2018-10-14] MEDS ORDERED: Glycopyrrolate 0.2 MG/ML VIAL IVP PRN (19:51)
[2018-10-14] MEDS: Artificial Tears SOLN 15 ML BOTTLE BOTH EYES SCH ×2 (19:59→23:13)
[2018-10-14] MEDS: Chlorhexidine Rinse 15 ML MOUTHWASH MM SCH (19:59)
[2018-10-14] MEDS ORDERED: FentaNYL (PF) 1,000 MCG in 0.9 % Sodium Chloride 80 ML IVC SCH (20:00)
[2018-10-14] MEDS ORDERED: Pantoprazole 40 MG VIAL IVP SCH (20:00)
[2018-10-15 01:27] LABS: ABG Base Excess 0 mEq/L (-2 to 3); ABG HCO3 26 mEq/L (21-27); ABG Oxygen Saturation 99 % (95-98); ABG PCO2 46 mmHg (35-45); ABG PH 7.36 pH Units (7.32-7.45); ABG PO2 141 mmHg (85-104); ABG TCO2 28 mEq/L (20-26); Blood Gas Modality ASSIST CONTROL; Blood Gas PEEP 5 cm H2O; Blood Gas Respiration Rate 12; Blood Gas VT 500 cc
[2018-10-15] MEDS: Ipratropium/Albuterol Neb 3 ML IH SCH ×4 (03:27→21:47)
[2018-10-15] MEDS: Artificial Tears SOLN 15 ML BOTTLE BOTH EYES SCH ×2 (04:24→08:03)
[2018-10-15] MEDS: *HR* Enoxaparin 40 MG/0.4 ML SYRINGE SQ SCH (04:25)
[2018-10-15] MEDS: Famotidine 20 MG/2 ML VIAL IVP SCH (04:25)
[2018-10-15 04:51] LABS: ABG Base Excess 1 mEq/L (-2 to 3); ABG HCO3 25 mEq/L (21-27); ABG Oxygen Saturation 99 % (95-98); ABG PCO2 40 mmHg (35-45); ABG PH 7.41 pH Units (7.32-7.45); ABG PO2 113 mmHg (85-104); ABG TCO2 27 mEq/L (20-26); Blood Gas Modality ASSIST CONTROL; Blood Gas PEEP 5 cm H2O; Blood Gas Respiration Rate 12; Blood Gas VT 500 cc
[2018-10-15 05:03] LABS: Basophils % 0.3 %; Eosinophils # 0.2 K/mcL (0.0-0.6); Hematocrit 34.8 % (35.3-44.9); Hemoglobin 11.2 g/dL (11.5-15.4); Immature Granulocytes % 0.4 % (0-4); Lymphocytes # 1.3 K/mcL (0.6-4.6); Lymphocytes % 12.2 %; Mean Corpuscular HGB Conc 32.2 g/dL (31.6-35.5); Mean Corpuscular Hemoglobin 29.9 pg (28.0-33.3); Mean Corpuscular Volume 92.8 fL (83.0-100.0); Mean Platelet Volume 11.3 fL (9.4-12.4); Monocytes # 0.7 K/mcL (0.0-1.3); Monocytes % 6.1 %; Neutrophils # 8.7 K/mcL (1.6-8.9); Platelet Count 216 K/mcL (140-400); Red Blood Count 3.75 M/mcL (3.82-4.97); Red Cell Distribution Width 14.6 % (11.5-14.5)
[2018-10-15 05:14] LABS: Alanine Aminotransferase 10 Units/L (7-52); Albumin 3.8 g/dL (3.5-5.7); Albumin/Globulin Ratio 1.5 (1.1-2.2); Alkaline Phosphatase 119 Units/L (34-104); Aspartate Amino Transferase 11 Units/L (13-39); BUN/Creatinine Ratio 11 (6-26); Bilirubin,Direct 0.1 mg/dL (0.0-0.2); Bilirubin,Indirect 0.2 mg/dL (0.0-1.2); Bilirubin,Total 0.3 mg/dL (0.3-1.0); Blood Urea Nitrogen 9 mg/dL (6-20); Calcium 8.9 mg/dL (8.6-10.3); Carbon Dioxide 21 mEq/L (23-29); Chloride 112 mEq/L (98-107); Globulin 2.6 g/dL (2.4-3.5); Glucose 108 mg/dL (70-105); Osmolality,Calculated 295 (280-300); Sodium 143 mEq/L (136-145); Total Protein 6.4 g/dL (6.4-8.9); eGFR For Non-African Americans > 60 (> 60)
[2018-10-15] MEDS: Chlorhexidine Rinse 15 ML MOUTHWASH MM SCH (08:06)
--- NOTE | 2018-10-15 08:40 | Electrocardiograph Report ---
[address] [place], [place] [address] Test Date: 2018-10-14 Pat Name: Connie Copeland Department: [id number] Room: 01 Gender: F Ironer Hand: : 1960 Requested By: Cachorro Shelby Order Number: [id number] Reading MD: Javi Matta Measurements Intervals [place] Rate: 69 P: 38 DE: 190 QRS: -17 QRSD: 103 T: 26 QT: 409 QTc: 442 Interpretive Statements Sinus rhythm Borderline left axis deviation Low voltage, precordial leads Abnormal R-wave progression, early transition Electronically Signed On 10-15-2018 8:39:11 EST by Javi Matta
[2018-10-15] MEDS ORDERED: Furosemide 40 MG/4 ML VIAL IVP ONE ×2 (11:40→16:27)
--- NOTE | 2018-10-15 11:46 | Internal Med Progress Note ---
Hospitalist Progress Note - Encounter Date of Encounter: 10/15/18 Time of Encounter: 11:42 - Subjective Interval History: Initially this AM, was intubated and sedated, does withdraw to pain but not respond to voice, no issues overnight and maintained on minimal vent settings, decision made to perform SAT and SBT, both of which patient passed. *On re-eval, pt awake and breathing spontaneously, following commands. Successfully extubated. Wants to rest for a bit. - Exam Vitals: Temp Pulse Resp BP Pulse Ox 98.5 F 104 26 159/94 100 10/15/18 09:06 10/15/18 10:00 10/15/18 11:30 10/15/18 10:00 10/15/18 11:35 Exam: General: NAD, intubated and sedated Thoracic: Bilateral anterior coarse breath sounds and mechanical breath sounds Cardio: Normal S1 and S2, regular rate and rhythm, no murmurs. unable to appreciate JVD given habitus Abdomen: Soft, nondistended Extremities: Warm, well perfused. DP pulses 2+ b/l. No clubbing, cyanosis. Does have pitting edema b/l LE Skin: Intact. No rashes, bruises, or ulcers Neuro: sedated, does awake to gentle physical stimulation, does not follow commands, pupils equal constricted and mildly reactive - Assessment and Plan (1) Toxic metabolic encephalopathy Current Visit: Yes Status: Acute - Summary of Assessment and Plan Summary of Assessment and Plan: Connie Copeland is a 58 F w hx multiple sclerosis, morbid obesity, smoker, THC use, COPD, HTN, HLD, GERD, hypothyroidism, anx/dep, chronic pain, and recent admission for gabapentin and polypharmacy overdose who presents with unresponsiveness, GCS<8, intubated in ED for airway protection, with no other lab abnormalities to suggest metabolic insult, felt to likely represent overdose. Acute toxic metabolic encephalopathy: suspicious for gabapentin OD, had extensive eval 3 weeks ago for same presentation, will not repeat, renal fxn ok. Mental status more alert today - holding all centrally acting meds - ED pharmacist called dispensing pharmacies (local and mail order) to cancel any remaining gabapentin refills Acute hypoxic respiratory failure: passed SAT/SBT, subsequently extubated, place on nasal cannula and wean as able Bilateral lung infiltrates on chest CT: images similar from previous admission, SIRS 0/4 and requiring low vent settings. Does have crackles and coarse breath sounds, and with leg and hand swelling on exam - trial Lasix 40 iv x1 - defer empiric abx therapy, low threshhold to initiate Chronic mild normocytic anemia: likely 2/2 chronic disease, monitor and maintain Hb >7 Morbid obesity: BMI 43 MS: holding aubagio and dalfampridine Chronic pain: holding gabapentin and HTN: resume lisinopril/hctz HLD: home statin Hypothyroidism: home synthroid COPD: home inhalers when able, nebs q6h resp THC use disorder: Utox positive Smoker: nicotine patch offered PPx: lovenox FEN: swallow screen and then cardiac diet if passes, no MIVF Lines: PIV, Kang, removed OG/ET Consults: Code: Full Dispo: patient requires inpatient eval and management at this time. Anticipate 1-2 days. Will likely be homegoing Critical care time: 35 minutes - Time Spent with Patient Total time spent is greater than 50% in coordination of care (as documented) at patient's floor/unit and/or counseling patient: Internal Medicine: Result - Labs CBC & Chem 7: 10/15/18 04:36 10/15/18 04:36 Labs: Short CBC 10/14/18 10/15/18 Range/Units 12:35 04:36 WBC 6.4 11.0 D (4.3-11.1) K/mcL Hgb 10.2 L 11.2 L (11.5-15.4) g/dL Hct 31.9 L 34.8 L (35.3-44.9) % Plt Count 171 216 (140-400) K/mcL Neutrophils # 5.1 8.7 (1.6-8.9) K/mcL BMP 10/14/18 10/15/18 12:35 04:36 Sodium 145 143 Potassium 4.1 4.0 Chloride 113 H 112 H Carbon Dioxide 24 21 L BUN 10 9 Creatinine 1.00 0.85 Glucose 106 H 108 H Calcium 9.2 8.9 Cardiac Enzymes 10/14/18 Range/Units 12:35 Troponin I < 0.03 (< 0.04) ng/mL Liver Function 10/14/18 10/15/18 Range/Units 12:35 04:36 Total Bilirubin 0.3 0.3 (0.3-1.0) mg/dL Direct Bilirubin 0.0 0.1 (0.0-0.2) mg/dL AST 9 L 11 L (13-39) Units/L ALT 10 10 (7-52) Units/L Alkaline Phosphatase 116 H 119 H (34-104) Units/L Albumin 3.8 3.8 (3.5-5.7) g/dL Urine 10/14/18 Range/Units 13:05 Urine Color Yellow (Yellow) Urine Clarity Clear (Clear) Urine pH 5.5 (5.0-8.0) pH Units Ur Specific [place] 1.014 (1.010-1.025) Urine Protein Negative (Neg-Trace) mg/dL Urine Glucose (UA) Normal (Normal) mg/dL - ABG Interpretation ABG results: ABG ABG pH 7.41 pH Units (7.32-7.45) 10/15/18 04:45 ABG pCO2 40 mmHg (35-45) 10/15/18 04:45 ABG pO2 113 mmHg (85-104) H 10/15/18 04:45 ABG O2 Saturation 99 % (95-98) H 10/15/18 04:45 PT/INR, D-dimer PT 10.6 Seconds (9.4-12.1) 10/14/18 12:35 - Impressions Impressions Cervical Spine CT 10/14/18 12:29 IMPRESSION: No acute abnormality of the cervical spine. Multifocal airspace disease involving the lungs bilaterally, incompletely evaluated. Cannot exclude evolving pulmonary edema or multilobar pneumonia. D/ / 10/14/2018 13:54:23 Ivan Montilla MD / [facility] Interpreting Provider: Ivan Montilla MD Chest X-Ray 10/14/18 12:29 IMPRESSION: Low lung volumes. No acute cardiopulmonary process. Endotracheal tube is positioned 3.7 cm above the tyree. D/ / 10/14/2018 12:58:14 Ivan Montilla MD / [facility] Interpreting Provider: Ivan Montilla MD Head CT 10/14/18 12:29 IMPRESSION: No acute intracranial abnormality. Stable atrophy and chronic microvascular ischemic change. D/ / 10/14/2018 13:49:55 Ivan Montilla MD / [facility] Interpreting Provider: Ivan Montilla MD Pelvis X-Ray 10/14/18 12:44 IMPRESSION: 1. No acute osseous abnormality in the pelvis. D/ / Guillermo Lovell MD / Guillermo Lovell MD Interpreting Provider: Guillermo Lovell MD Consult Discharge Plan - Plan Referrals: NONE,PCP [Primary Care Provider] -
[2018-10-15] MEDS ORDERED: Ipratropium/Albuterol Neb 3 ML IH PRN (16:26)
[2018-10-16] MEDS: Ipratropium/Albuterol Neb 3 ML IH SCH ×4 (03:43→21:57)
[2018-10-16 05:42] LABS: Basophils % 0.4 %; Eosinophils # 0.3 K/mcL (0.0-0.6); Eosinophils % 3.5 %; Hematocrit 31.2 % (35.3-44.9); Hemoglobin 10.3 g/dL (11.5-15.4); Immature Granulocytes % 0.3 % (0-4); Lymphocytes # 1.1 K/mcL (0.6-4.6); Lymphocytes % 15.7 %; Mean Corpuscular Hemoglobin 29.5 pg (28.0-33.3); Mean Corpuscular Volume 89.4 fL (83.0-100.0); Mean Platelet Volume 11.1 fL (9.4-12.4); Monocytes # 0.7 K/mcL (0.0-1.3); Monocytes % 9.8 %; Platelet Count 171 K/mcL (140-400); Red Blood Count 3.49 M/mcL (3.82-4.97); Red Cell Distribution Width 14.7 % (11.5-14.5); Segmented Neutrophils % 70.3 %
[2018-10-16 05:44] LABS: VBG HCO3 31 mEq/L (21-27); VBG PCO2 42 mmHg (41-51); VBG PH 7.47 pH Units (7.32-7.42); VBG PO2 109 mmHg (25-50)
[2018-10-16 06:00] LABS: BUN/Creatinine Ratio 11 (6-26); Blood Urea Nitrogen 11 mg/dL (6-20); Carbon Dioxide 30 mEq/L (23-29); Chloride 100 mEq/L (98-107); Glucose 106 mg/dL (70-105); Osmolality,Calculated 286 (280-300); Potassium 3.3 mEq/L (3.5-5.1); Sodium 138 mEq/L (136-145); eGFR For Non-African Americans 59 (> 60)
[2018-10-16] MEDS: *HR* Enoxaparin 40 MG/0.4 ML SYRINGE SQ SCH (06:10)
--- NOTE | 2018-10-16 07:45 | Internal Med Progress Note ---
Hospitalist Progress Note - Encounter Date of Encounter: 10/16/18 Time of Encounter: 07:44 - Subjective Interval History: Pt today is much less confused. She is able to answer several questions including relatively abstract questions. She denies confusion, TORRES, fever, N/V/D, abd pain, CP, or SOB. She says she has pedal edema usually. She does admit today that she took 4 gabapentin tabs the day of admission or the day before (she's unsure), and does not know what her gabapentin dose is. Willing to go home today, asks for Kang out and wants to try using walker. *afternoon addendum: According to nurses, pt today not wanting to participate in her care. PT/OT recommending ECF due to weakness from MS but she refuses, stating desire to go home, but then isn't participating in self cleaning, ADLs. - Exam Vitals: Temp Pulse Resp BP Pulse Ox 98.3 F 101 18 140/93 92 10/16/18 03:36 10/16/18 03:36 10/16/18 03:43 10/16/18 03:36 10/16/18 03:43 Exam: General: NAD, good eye contact, obese Thoracic: lungs clear, no wheezing or crackles Cardio: Normal S1 and S2, regular rate and rhythm, no murmurs Abdomen: Soft, nondistended Extremities: Warm, well perfused. DP pulses 2+ b/l. Does have pitting edema b/l LE improved from yesterday Skin: Intact. No rashes, bruises, or ulcers Neuro: awake and fully oriented, speech fluent, answers abstract questions, 3/5 strength b/l LE - Assessment and Plan (1) Toxic metabolic encephalopathy Current Visit: Yes Status: Acute - Summary of Assessment and Plan Summary of Assessment and Plan: Connie Copeland is a 58 F w hx multiple sclerosis, morbid obesity, smoker, THC use, COPD, HTN, HLD, GERD, hypothyroidism, anx/dep, chronic pain, and recent admission for gabapentin and polypharmacy overdose who presents with unresponsiveness, GCS<8, intubated in ED for airway protection, with no other lab abnormalities to suggest metabolic insult, felt to likely represent overdose. Acute toxic metabolic encephalopathy: suspicious for gabapentin OD, had extensive eval 3 weeks ago for same presentation, will not repeat. Resolved - holding all centrally acting meds - ED pharmacist called dispensing pharmacies (local and mail order) to cancel any remaining gabapentin refills Acute hypoxic respiratory failure: passed SAT/SBT, subsequently extubated, place on nasal cannula and wean as able Bilateral lung infiltrates on chest CT: lungs clear today, O2 sats good, improved with diuresis Chronic mild normocytic anemia: likely 2/2 chronic disease, monitor and maintain Hb >7 Morbid obesity: BMI 43 MS: resume home aubagio and dalfampridine when able, does have significant LE weakness Chronic pain: discontinue gabapentin HTN: home lisinopril/hctz HLD: home statin Hypothyroidism: home synthroid COPD: home inhalers THC use disorder: Utox positive Smoker: nicotine patch offered PPx: lovenox FEN: cardiac, no MIVF Lines: PIV, remove Kang Consults: Code: Full Dispo: patient requires inpatient eval and management at this time. Anticipate 1-2 days. PT/OT recommending ECF but pt refusing, however is not able to use walker (which she does at baseline reportedly) and is not participating in ADLs - Time Spent with Patient Total time spent is greater than 50% in coordination of care (as documented) at patient's floor/unit and/or counseling patient: Internal Medicine: Result - Labs CBC & Chem 7: 10/16/18 05:20 10/16/18 05:20 Labs: Short CBC 10/16/18 Range/Units 05:20 WBC 7.1 (4.3-11.1) K/mcL Hgb 10.3 L (11.5-15.4) g/dL Hct 31.2 L (35.3-44.9) % Plt Count 171 (140-400) K/mcL Neutrophils # 5.0 (1.6-8.9) K/mcL BMP 10/16/18 05:20 Sodium 138 Potassium 3.3 L Chloride 100 Carbon Dioxide 30 H BUN 11 Creatinine 0.97 Glucose 106 H Calcium 9.0 - ABG Interpretation ABG results: ABG ABG pH 7.41 pH Units (7.32-7.45) 10/15/18 04:45 ABG pCO2 40 mmHg (35-45) 10/15/18 04:45 ABG pO2 113 mmHg (85-104) H 10/15/18 04:45 ABG O2 Saturation 99 % (95-98) H 10/15/18 04:45 PT/INR, D-dimer PT 10.6 Seconds (9.4-12.1) 10/14/18 12:35 Consult Discharge Plan - Plan Referrals: Johnie Farley MD [Partnered Physician] -
[2018-10-16 14:23] LABS: VBG HCO3 30 mEq/L (21-27); VBG PCO2 43 mmHg (41-51); VBG PH 7.46 pH Units (7.32-7.42); VBG PO2 65 mmHg (25-50)
[2018-10-17] MEDS: Ipratropium/Albuterol Neb 3 ML IH SCH ×4 (04:16→22:03)
[2018-10-17] MEDS: *HR* Enoxaparin 40 MG/0.4 ML SYRINGE SQ SCH (05:13)
[2018-10-17 05:37] LABS: BUN/Creatinine Ratio 18 (6-26); Blood Urea Nitrogen 17 mg/dL (6-20); Carbon Dioxide 26 mEq/L (23-29); Chloride 103 mEq/L (98-107); Glucose 121 mg/dL (70-105); Magnesium 2.1 mg/dL (1.6-2.6); Osmolality,Calculated 289 (280-300); Potassium 3.1 mEq/L (3.5-5.1); Sodium 138 mEq/L (136-145); eGFR For Non-African Americans > 60 (> 60)
[2018-10-17] MEDS: Multivit/Ca/Min/Fe/FA 1 TAB TABLET PO SCH (10:18)
--- NOTE | 2018-10-17 12:05 | Consult Note ---
Date of Encounter: 10/17/18 Time of Encounter: 09:15 Assessment & Recommendation (1) Overdose Current visit: No Status: Acute Assessment & Recommendation: -Patient reports that she did take an unknown amount of gabapentin "for a ttention." She denies that she had suicidal intent with this action. She denies a history of attempts. She reports strong protective factors of her boyfriend and sharon. When speaking with her boyfriend, he reports that he cannot see her suiciding. He also denies past attempts that he knows of. He does admit that she does appear depressed but reports that he feels safe with her coming home. As such, she is psychiatrically cleared for discharge and is not seen to be at high risk for suicide at this time. -Recommend the decrease or discontinuation of gabapentin with the recent overdose use. Also recommend notifying primary care physician of the gabapentin misuse. If continuing to be inpatient, recommend restarting home psychiatric medications of amitriptyline, Wellbutrin, and sertraline. Patient and boyfriend both report that she has an initial appointment with psychiatric care scheduled. Recommend confirming this appointment and if she does not have this appointment, referring her to psychiatric care. Recommend discontinuation of 1-1 sitter at this time -Will sign off at this time. Please let us know if have any questions. Thank you for the consult. Qualifiers: Encounter type: initial encounter Injury intent: accidental or unintentional Qualified Code(s): T50.901A - Poisoning by unspecified drugs, medicaments and biological substances, accidental (unintentional), initial encounter History of Present Illness Patient: new to practice Requesting Physician: Gabriela Borrego MD Reason for consult: suspected overdose History of present illness: Ms. Copeland is a 58 year old female with a past psychiatric history of depression, anxiety, bipolar disorder, and schizophrenia as well as marijuana use disorder admitted on 10/14/2018 for altered mental status and consult it for suspected overdose. Patient presented obtunded and not responding to painful stimuli. She was intubated but was able to be extubated and now is alert and oriented 3. When she came to she mentioned that the day of her altered mental status, she had taken 4 gabapentin pills. When speaking with the patient, she reports that "I did not want to hurt myself." She reports that she "did it for attention." She explains that her boyfriend is not being supportive at this time. She reports that he will help around the house on occasion but she "has to ask him to do it." She denies the she took medication or did anything to altered mental status 3 weeks ago when she reported to the ED or similar issues. She admits to admissions on 1A "a couple of times" for suicidal ideation but denies attempts. She denies specific significant suicidal ideation baseline. She denies having access to firearms. She reports protective factors of "I do not want to go to help," "God," and her boyfriend. She denies a history of self injurious nonlethal behavior. She does admit to more depression than usual but states that she is "usually depressed." She does admit to high anxiety because she wants to leave the hospital. She reports poor sleep at home due to unknown reasons, getting 4 hours a night. She admits to decreased appetite. She denies side effects to home medications. She reports visual hallucinations of "seeing shadows on Hospital wall" she reports that she sees the shadows in her hallway and kitchen at home and also hears noises at home. However, she reports that she believes there is a ghost in her home stating that her home is old and she would not be surprised. She denies current SI and HI. She reports 1 pack a day tobacco use she denies significant alcohol use. She reports filling a small pipe 3 times a day of marijuana use. The patient's boyfriend and roommate, Bud Zapata, was called with permission from the patient. He reports that ""I can't see her doing it myself," regarding suicide. He reports that he is "a little concerned "" due to the recent behavior, but he states that he feels okay with her coming home. He denies of knowing of her attempting suicide in the past. He does admit that she is "depressed" at home. He denies that there are firearms in the home. He does state that he believes she has a mental health appointment "somewhere near [place]," stating that it may be [facility]. CC: Gabriela Borrego MD Past Med Surg Social Fam HX - Past Medical History Source: patient Medical history: cancer, CHF, COPD, GERD, hyperlipidemia, thyroid disease - Past Psychiatric History Psychiatric history: Reports: anxiety, bipolar, depression, schizophrenia Past psychiatric history details: Denies having a current provider. Family psychiatric history: Unknown Family History of Suicide: Unknown - Past Surgical History Surgical History: appendectomy, breast surgery, knee replacement, other - Social History Smoking Status: Current every day smoker Packs per day: 1ppd Smokeless Tobacco Status: No Alcohol use: none Drug use: marijuana (3 pipes a day) Occupational status: other Current living situation: Home (With boyfriend) Activity Level: Uses cane/walker Recent Out of Country Travel Within the Last 8 Weeks: No - Family History Brother Family Member Ethnicity: Non- Living Status: Still Living Sister Family Member Ethnicity: Non- Living Status: Still Living Father Family Member Ethnicity: Non- Living Status: Hx Family Cardiac Disorders: Yes (CAD) Hx Family Respiratory Disorders: Yes (COPD) Hx Family Cancer: No Hx Family GI Disorders: No Hx Family Endocrine Disorder: No Hx Family Neuromuscular Disorders: No Hx Family Neurologic Disorders: No Hx Family HEENT Disorders: No Hx Family Autoimmune Disorders: No Mother Family Member Ethnicity: Non- Living Status: Hx Family Cardiac Disorders: No Hx Family Respiratory Disorders: No Hx Family Cancer: No Hx Family GI Disorders: No Hx Family Endocrine Disorder: No Hx Family Neuromuscular Disorders: No Hx Family Neurologic Disorders: No Hx Family HEENT Disorders: No Hx Family Autoimmune Disorders: No Medications & Allergies Famotidine [Heartburn Prevention] 20 mg PO DAILY 09/19/17 [History] Lisinopril-HCTZ 10-12.5 [Prinzide 10-12.5] 1 tab PO DAILY 12/29/17 [History] BuPROPion SR (12 HR) [Wellbutrin SR] 150 mg PO BID 05/20/18 [History] Sertraline [Zoloft] 200 mg PO DAILY 05/20/18 [History] Dalfampridine [Dalfampridine ER] 10 mg PO BID 08/31/18 [History] Levothyroxine [Synthroid] 125 mcg PO DAILY@0630 #30 tablet 09/03/18 [Rx] Albuterol Sulfate [Ventolin Hfa] 2 puff IH Q4H PRN 09/26/18 [History] Atorvastatin [Lipitor] 40 mg PO HS 09/26/18 [History] Diphenoxylate/Atropine [Lomotil 2.5 mg/0.025 mg] 1 tab PO TID PRN 09/26/18 [History] Potassium Chloride [Klor-Con 10] 20 meq PO TID PRN 09/26/18 [History] Promethazine [Phenergan] 25 mg PO Q6H PRN 09/26/18 [History] Teriflunomide [Aubagio] 14 mg PO DAILY 09/26/18 [History] Gabapentin [Neurontin] 300 mg PO TID #90 capsule 10/03/18 [Rx] Amitriptyline [Elavil] 50 mg PO DAILY 10/16/18 [History] Fluticasone/Salmeterol [Advair Hfa 115-21 Mcg Inhaler] 2 puff IH DAILY 10/16/18 [History] Ipratropium/Albuterol Neb [Duoneb] 3 ml IH Q6H PRN 10/16/18 [History] Melatonin 5 mg PO HS 10/16/18 [History] Multivitamin [One Daily Essential] 1 tab PO DAILY 10/16/18 [History] Allergy/AdvReac Type Severity Reaction Status Date / Time vancomycin Allergy Itching Verified 10/16/18 15:33 Review of Systems Neurological: Reports: weakness Psychiatric: Reports: depression, anxiety, abnormal sleep pattern, change in appetite, visual hallucinations (seeing shadows on the wall). Denies: suicidal ideation, homicidal ideation, auditory hallucinations Psychiatry Exam - Constitutional Vitals: Temp Pulse Resp BP Pulse Ox 98.2 F 110 16 151/91 97 10/17/18 10:07 10/17/18 10:07 10/17/18 10:07 10/17/18 10:07 10/17/18 10:07 General appearance: age & developmentally appropriate, well-groomed, well- nourished, obese - Musculoskeletal Gait: other (Not assessed) Station: relaxed Strength & Tone: normal for patient (Grossly) - Psychiatric Patient Orientation: Yes Person, Yes Time, Yes Place, Yes Circumstance Level of alertness: Alert, Follows commands Behavior: calm, cooperative Psychomotor activity: Normal Eye Contact: Maintains Eye Contact Mood Description: Euthymic/stable Patient description of mood: "Okay" Affect description: congruent with mood, full range Speech Volume: Normal Speech pattern: normal rate, normal rhythm, normal tone, fluent, spontaneous, appropriate, clear, coherent Language & Vocabulary: consistent with education Thought Process: Logical, Linear, Goal Oriented Thought Content: No Suicidal ideation, No Homicidal ideation, No Overt delusions Perceptual Disturbances: No Reacting to internal stimuli, No Auditory hallucinations, Yes Visual hallucinations (Shadows on the wall that she believes may be the blinds) Attention Span Ability: Capable of Focused Attention Memory Description: Grossly Intact Patient Reliability: Reliable Historian Fund of knowledge: Yes abstraction ability, Yes aware of current events Intelligence Estimate: Average Judgment: Fair Insight: Partial Results - Drug Levels and Toxicology Drug Levels and Toxicology: None noted this a.m. - Labs Labs: Laboratory Last Values WBC 7.1 K/mcL (4.3-11.1) 10/16/18 05:20 RBC 3.49 M/mcL (3.82-4.97) L 10/16/18 05:20 Hgb 10.3 g/dL (11.5-15.4) L 10/16/18 05:20 Hct 31.2 % (35.3-44.9) L 10/16/18 05:20 MCV 89.4 fL (83.0-100.0) 10/16/18 05:20 MCH 29.5 pg (28.0-33.3) 10/16/18 05:20 MCHC 33.0 g/dL (31.6-35.5) 10/16/18 05:20 RDW 14.7 % (11.5-14.5) H 10/16/18 05:20 Plt Count 171 K/mcL (140-400) 10/16/18 05:20 MPV 11.1 fL (9.4-12.4) 10/16/18 05:20 Immature Gran % 0.3 % (0-4) 10/16/18 05:20 Seg Neutrophils % 70.3 % 10/16/18 05:20 Lymphocytes % 15.7 % 10/16/18 05:20 Monocytes % 9.8 % 10/16/18 05:20 Eosinophils % 3.5 % 10/16/18 05:20 Basophils % 0.4 % 10/16/18 05:20 Neutrophils # 5.0 K/mcL (1.6-8.9) 10/16/18 05:20 Lymphocytes # 1.1 K/mcL (0.6-4.6) 10/16/18 05:20 Monocytes # 0.7 K/mcL (0.0-1.3) 10/16/18 05:20 Eosinophils # 0.3 K/mcL (0.0-0.6) 10/16/18 05:20 Basophils # 0.0 K/mcL (0.0-0.2) 10/16/18 05:20 PT 10.6 Seconds (9.4-12.1) 10/14/18 12:35 INR 0.9 10/14/18 12:35 APTT 27.6 Seconds (26.0-36.0) 10/14/18 12:35 Sample Site R Radial 10/15/18 04:45 ABG pH 7.41 pH Units (7.32-7.45) 10/15/18 04:45 ABG pCO2 40 mmHg (35-45) 10/15/18 04:45 ABG pO2 113 mmHg (85-104) H 10/15/18 04:45 ABG HCO3 25 mEq/L (21-27) 10/15/18 04:45 ABG Total CO2 27 mEq/L (20-26) H 10/15/18 04:45 ABG O2 Saturation 99 % (95-98) H 10/15/18 04:45 ABG Base Excess 1 mEq/L (-2 to 3) 10/15/18 04:45 Jacob Test Positive 10/15/18 04:45 VBG pH 7.46 pH Units (7.32-7.42) H 10/16/18 14:17 VBG pCO2 43 mmHg (41-51) 10/16/18 14:17 VBG pO2 65 mmHg (25-50) H 10/16/18 14:17 VBG HCO3 30 mEq/L (21-27) H 10/16/18 14:17 Respiration Rate 12 10/15/18 04:45 O2 Delivery Device Adult Vent 10/15/18 04:45 Blood Gas Modality ASSIST CONTROL 10/15/18 04:45 Inspired O2 30.0 (1-15=lpm [id number]=%) 10/15/18 04:45 Tidal Volume 500 cc 10/15/18 04:45 PEEP 5 cm H2O 10/15/18 04:45 Sodium 138 mEq/L (136-145) 10/17/18 04:44 Potassium 3.1 mEq/L (3.5-5.1) L 10/17/18 04:44 Chloride 103 mEq/L (98-107) 10/17/18 04:44 Carbon Dioxide 26 mEq/L (23-29) 10/17/18 04:44 BUN 17 mg/dL (6-20) 10/17/18 04:44 Creatinine 0.94 mg/dL (0.60-1.20) 10/17/18 04:44 Est GFR ( Amer) > 60 (> 60) 10/17/18 04:44 Est GFR (Non-Af Amer) > 60 (> 60) 10/17/18 04:44 BUN/Creatinine Ratio 18 (6-26) 10/17/18 04:44 Glucose 121 mg/dL (70-105) H 10/17/18 04:44 POC Glucose 97 mg/dL (70-99) 10/15/18 11:01 Calculated Osmolality 289 (280-300) 10/17/18 04:44 Calcium 9.0 mg/dL (8.6-10.3) 10/17/18 04:44 Magnesium 2.1 mg/dL (1.6-2.6) 10/17/18 04:44 Total Bilirubin 0.3 mg/dL (0.3-1.0) 10/15/18 04:36 Direct Bilirubin 0.1 mg/dL (0.0-0.2) 10/15/18 04:36 Indirect Bilirubin 0.2 mg/dL (0.0-1.2) 10/15/18 04:36 AST 11 Units/L (13-39) L 10/15/18 04:36 ALT 10 Units/L (7-52) 10/15/18 04:36 Alkaline Phosphatase 119 Units/L (34-104) H 10/15/18 04:36 Ammonia 34 mcmol/L (16-53) 10/14/18 12:35 Troponin I < 0.03 ng/mL (< 0.04) 10/14/18 12:35 Serum Total Protein 6.4 g/dL (6.4-8.9) 10/15/18 04:36 Albumin 3.8 g/dL (3.5-5.7) 10/15/18 04:36 Globulin 2.6 g/dL (2.4-3.5) 10/15/18 04:36 Albumin/Globulin Ratio 1.5 (1.1-2.2) 10/15/18 04:36 TSH 3.573 mcIU/mL (0.340-5.600) 10/14/18 12:35 Urine Color Yellow (Yellow) 10/14/18 13:05 Urine Clarity Clear (Clear) 10/14/18 13:05 Urine pH 5.5 pH Units (5.0-8.0) 10/14/18 13:05 Ur Specific [place] 1.014 (1.010-1.025) 10/14/18 13:05 Urine Protein Negative mg/dL (Neg-Trace) 10/14/18 13:05 Urine Glucose (UA) Normal mg/dL (Normal) 10/14/18 13:05 Urine Ketones Negative mg/dL (Negative) 10/14/18 13:05 Urine Blood Negative (Negative) 10/14/18 13:05 Urine Nitrite Negative (Negative) 10/14/18 13:05 Urine Bilirubin Negative (Negative) 10/14/18 13:05 Urine Urobilinogen Normal mg/dL (Normal) 10/14/18 13:05 Ur Leukocyte Esterase Negative (Negative) 10/14/18 13:05 Ur Culture Indicated? NO (NO) 10/14/18 13:05 Urine Opiates Screen Negative ng/mL (Hgwlmb=142) 10/14/18 13:05 Ur Barbiturates Screen Negative ng/mL (Kqxrjj=674) 10/14/18 13:05 Ur Phencyclidine Scrn Negative ng/mL (Cutoff=25) 10/14/18 13:05 Ur Amphetamines Screen Negative ng/mL (Xlxolf=2153) 10/14/18 13:05 U Benzodiazepines Scrn Negative ng/mL (Bqvata=204) 10/14/18 13:05 Urine Cocaine Screen Negative ng/mL (Cutoff= 300) 10/14/18 13:05 U Marijuana (THC) Screen Positive ng/mL (Cutoff = 50) H 10/14/18 13:05 Ur Drug Screen Interp See Below 10/14/18 13:05 Ethyl Alcohol < 10 mg/dL (Less than 10) 10/14/18 12:35 - Impressions Impressions Chest X-Ray 10/14/18 12:29 IMPRESSION: Low lung volumes. No acute cardiopulmonary process. Endotracheal tube is positioned 3.7 cm above the tyree. D/ / 10/14/2018 12:58:14 Ivan Montilla MD / [facility] Interpreting Provider: Ivan Montilla MD Consult Discharge Plan - Plan Referrals: Johnie Farley MD [Partnered Physician] - - Attending Attestation I examined this patient and my medical decision-making was reviewed with the Resident Physician. I agree with the documented findings, disposition and treatment plan as described except to the extent described below. Client was admitted three weeks ago with a similar presentation. It sounds like she accidentally overtook Neurontin at that time. This time client admits to deliberately overtaking it but states she was only doing so for attention. Denies SI, intent, or plan. Spoke with live in boyfriend who agrees client has never been a suicide risk. He is comfortable having client return home. She can follow up with mental health on an outpatient basis. Client does not seem to tolerate Neurontin well. This medication can make some people confused so it may be best to have her switch to a different agent for nerve pain control. Will sign off for now. Call if any questions.
--- NOTE | 2018-10-17 15:06 | Internal Med Progress Note ---
Hospitalist Progress Note - Encounter Date of Encounter: 10/17/18 Time of Encounter: 08:00 - Subjective Interval History: She was seen and examined at bedside. Alert and oriented. Responding to questions appropriately. Tolerating by mouth diet. Denies loss of consciousness, syncope, headache, fever, chills, neck stiffness, chest pain, palpitations. She reports that she follows at [facility] and her multiple sclerosis medications were prescribed to her by a neurologist in [place] Dr. Chirinos) Discussed that I will call Dr. Chirinos and discuss her case further with her. She is in agreement All questions answered - Exam Vitals: Temp Pulse Resp BP Pulse Ox 98.2 F 110 16 151/91 97 10/17/18 10:07 10/17/18 10:07 10/17/18 10:07 10/17/18 10:07 10/17/18 10:07 Exam: General: NAD, good eye contact, obese Thoracic: lungs clear, no wheezing or crackles Cardio: Normal S1 and S2, regular rate and rhythm, no murmurs Abdomen: Soft, nondistended Extremities: Warm, well perfused. DP pulses 2+ b/l. Does have pitting edema b/l LE improved from yesterday Skin: Intact. No rashes, bruises, or ulcers Neuro: awake and fully oriented, speech fluent, answers abstract questions, 3/5 strength b/l LE - Assessment and Plan (1) Toxic metabolic encephalopathy Current Visit: Yes Status: Acute (2) DVT prophylaxis Current Visit: No Status: Acute (3) Hypothyroid Current Visit: No Status: Chronic (4) Marijuana abuse Current Visit: No Status: Chronic (5) Multiple sclerosis Current Visit: No Status: Chronic (6) Hypokalemia Current Visit: No Status: Resolved (7) Medication overdose Current Visit: No Status: Resolved - Summary of Assessment and Plan Summary of Assessment and Plan: Connie Copeland is a 58 F w hx multiple sclerosis, morbid obesity, smoker, THC use, COPD, HTN, HLD, GERD, hypothyroidism, anx/dep, chronic pain, and recent admission for gabapentin and polypharmacy overdose who presents with unresponsiveness, GCS<8, intubated in ED for airway protection, with no other lab abnormalities to suggest metabolic insult, felt to likely represent overdose. Acute toxic metabolic encephalopathy: suspicious for gabapentin OD, had extensive eval 3 weeks ago for same presentation, will not repeat. Resolved - holding all centrally acting meds - ED pharmacist called dispensing pharmacies (local and mail order) to cancel any remaining gabapentin refills - psych consulted - follow recs Acute hypoxic respiratory failure: passed SAT/SBT, subsequently extubated, place on nasal cannula and wean as able Bilateral lung infiltrates on chest CT: lungs clear today, O2 sats good, improved with diuresis Chronic mild normocytic anemia: likely 2/2 chronic disease, monitor and maintain Hb >7 Morbid obesity: BMI 43 MS: resume home aubagio and dalfampridine when able, does have significant LE weakness Chronic pain: discontinue gabapentin indefinitely on discharge HTN: home lisinopril/hctz HLD: home statin Hypothyroidism: home synthroid COPD: home inhalers THC use disorder: Utox positive Smoker: nicotine patch offered hypokalemia- replaced PPx: lovenox FEN: cardiac Lines: PIV Consults: psych Code: Full Dispo: Anticipate 1-2 days. PT/OT recommending ECF but pt refusing, however is not able to use walker (which she does at baseline reportedly) and is not participating in ADLs - Time Spent with Patient Total time spent is greater than 50% in coordination of care (as documented) at patient's floor/unit and/or counseling patient: Internal Medicine: Result - Labs CBC & Chem 7: 10/16/18 05:20 10/17/18 04:44 Labs: BMP 10/17/18 04:44 Sodium 138 Potassium 3.1 L Chloride 103 Carbon Dioxide 26 BUN 17 Creatinine 0.94 Glucose 121 H Calcium 9.0 - ABG Interpretation ABG results: ABG ABG pH 7.41 pH Units (7.32-7.45) 10/15/18 04:45 ABG pCO2 40 mmHg (35-45) 10/15/18 04:45 ABG pO2 113 mmHg (85-104) H 10/15/18 04:45 ABG O2 Saturation 99 % (95-98) H 10/15/18 04:45 PT/INR, D-dimer PT 10.6 Seconds (9.4-12.1) 10/14/18 12:35 Consult Discharge Plan - Plan Referrals: Johnie Farley MD [Partnered Physician] - (3) Hypothyroid Qualifiers: Hypothyroidism type: acquired Qualified Code(s): E03.9 - Hypothyroidism, unspecified (7) Medication overdose Qualifiers: Encounter type: initial encounter Injury intent: undetermined intent Qualified Code(s): T50.904A - Poisoning by unspecified drugs, medicaments and biological substances, undetermined, initial encounter
[2018-10-17] MEDS ORDERED: Melatonin 3 MG TABLET PO SCH (21:00)
[2018-10-17] MEDS: DALFAMPRIDINE 10 MG PO SCH (21:46)
[2018-10-17] MEDS: BuPROPion SR (12 HR) 150 MG TABLET PO SCH (21:46)
[2018-10-18] MEDS: Ipratropium/Albuterol Neb 3 ML IH SCH ×2 (04:08→09:33)
[2018-10-18] MEDS: *HR* Enoxaparin 40 MG/0.4 ML SYRINGE SQ SCH (05:09)
[2018-10-18 05:11] LABS: Hematocrit 30.6 % (35.3-44.9); Hemoglobin 10.2 g/dL (11.5-15.4); Mean Corpuscular HGB Conc 33.3 g/dL (31.6-35.5); Mean Corpuscular Volume 86.9 fL (83.0-100.0); Mean Platelet Volume 11.3 fL (9.4-12.4); Platelet Count 167 K/mcL (140-400); Red Blood Count 3.52 M/mcL (3.82-4.97); Red Cell Distribution Width 14.4 % (11.5-14.5)
[2018-10-18 07:26] VITALS: BP 127/83
[2018-10-18] MEDS ORDERED: Famotidine 20 MG TABLET PO SCH (09:00)
[2018-10-18] MEDS ORDERED: TERIFLUNOMIDE 14 MG PO SCH (09:00)
[2018-10-18] MEDS ORDERED: Budesonide/Formoterol 80/4.5 MDI IH SCH (10:00)
[2018-10-18] MEDS: BuPROPion SR (12 HR) 150 MG TABLET PO SCH (10:34)
[2018-10-18] MEDS: Multivit/Ca/Min/Fe/FA 1 TAB TABLET PO SCH (10:34)
[2018-10-18] MEDS: DALFAMPRIDINE 10 MG PO SCH (10:35)
--- NOTE | 2018-10-18 12:35 | Physician Discharge Referral ---
Home Health/Hosp Referral Info Transfer to: Home Health Provider in Charge Post Discharge: PCP - Diagnosis (1) Toxic metabolic encephalopathy Status: Acute (2) DVT prophylaxis Status: Acute (3) Hypothyroid Status: Chronic (4) Marijuana abuse Status: Chronic (5) Multiple sclerosis Status: Chronic (6) Hypokalemia Status: Resolved (7) Medication overdose Status: Resolved - Respiratory Orders Smoking Cessation: Smoking cessation has been advised. For more information, call the [place] Tobacco Quit Line at 4-142-JLVN-NOW. - Services Needed Following services are medically necessary services: Nursing, Home Health Aide, Physical Therapy - Transfer Medications Home Medications: Famotidine [Heartburn Prevention] 20 mg PO DAILY 09/19/17 [History] Lisinopril-HCTZ 10-12.5 [Prinzide 10-12.5] 1 tab PO DAILY 12/29/17 [History] BuPROPion SR (12 HR) [Wellbutrin SR] 150 mg PO BID 05/20/18 [History] Sertraline [Zoloft] 200 mg PO DAILY 05/20/18 [History] Dalfampridine [Dalfampridine ER] 10 mg PO BID 08/31/18 [History] Levothyroxine [Synthroid] 125 mcg PO DAILY@0630 #30 tablet 09/03/18 [Rx] Albuterol Sulfate [Ventolin Hfa] 2 puff IH Q4H PRN 09/26/18 [History] Atorvastatin [Lipitor] 40 mg PO HS 09/26/18 [History] Diphenoxylate/Atropine [Lomotil 2.5 mg/0.025 mg] 1 tab PO TID PRN 09/26/18 [History] Potassium Chloride [Klor-Con 10] 20 meq PO TID PRN 09/26/18 [History] Promethazine [Phenergan] 25 mg PO Q6H PRN 09/26/18 [History] Teriflunomide [Aubagio] 14 mg PO DAILY 09/26/18 [History] Amitriptyline [Elavil] 50 mg PO DAILY 10/16/18 [History] Fluticasone/Salmeterol [Advair Hfa 115-21 Mcg Inhaler] 2 puff IH DAILY 10/16/18 [History] Ipratropium/Albuterol Neb [Duoneb] 3 ml IH Q6H PRN 10/16/18 [History] Melatonin 5 mg PO HS 10/16/18 [History] Multivitamin [One Daily Essential] 1 tab PO DAILY 10/16/18 [History] Allergies/Adverse Reactions: Allergy/AdvReac Type Severity Reaction Status Date / Time vancomycin Allergy Itching Verified 10/16/18 15:33 Certification: Further, I certify that my clinical findings support that this patient is homebound (i.e. absences from home require considerable and taxing effort and are for medical reasons or scientologist services or infrequently or short duration when for other reasons) because: Homebound Reason: Patient requires assistance of a person or device to safely leave home Attestation: My signature below is to certify that this patient is under my care and that I, or nurse practitioner, or a physician's title assistant working with me, has a [id number] encounter with this patient.
--- NOTE | 2018-10-18 12:52 | Discharge Summary ---
Date of Encounter: 10/18/18 Time of Encounter: 12:41 - Discharge Diagnosis (1) Toxic metabolic encephalopathy Priority: Primary Status: Acute (2) DVT prophylaxis Priority: Secondary Status: Acute (3) Hypothyroid Priority: Secondary Status: Chronic Qualifiers: Hypothyroidism type: acquired Qualified Code(s): E03.9 - Hypothyroidism, unspecified (4) Marijuana abuse Priority: Secondary Status: Chronic (5) Multiple sclerosis Priority: Secondary Status: Chronic (6) Hypokalemia Priority: Secondary Status: Resolved (7) Medication overdose Priority: Secondary Status: Resolved Qualifiers: Encounter type: initial encounter Injury intent: undetermined intent Qualified Code(s): T50.904A - Poisoning by unspecified drugs, medicaments and biological substances, undetermined, initial encounter Hospital course: "Connie Copeland is a 58 F w hx multiple sclerosis, morbid obesity, smoker, THC use, COPD, HTN, HLD, GERD, hypothyroidism, anx/dep, chronic pain, who presents with obtundation. Hx obtained per chart review and speaking with ED physician. Per history, patient's called EMS because she was nearly unresponsive. Was fine yesterday per EMS report. Upon arrival to ED, pt not protecting airway and without response to sternal rub, no improvement with narcan, not hypoglycemic, and therefore intubated for airway protection. CT head unremarkable. CT c-spine caught upper half of lung morgan which show stable bilateral airspace disease but SIRS 0/4 and requiring minimal vent settings. Notably, pt found to have bedbugs. Of note, patient recently admitted 3 weeks ago for similar presentation of AMS/unresponsiveness, underwent extensive workup including head CT and MRI, EEG, and TTE, of which all were unremarkable. [place] related to gabapentin OD as her mental status gradually improved spontaneously." patient was admitted with above presentation. He was intubated on 10/14 and extubated on 10/15 and was transferred out of the ICU. my first encounter with the patient was on 10/17 adn as per my colleague she was stable for discharge. Acute toxic metabolic encephalopathy: suspicious for gabapentin OD, had extensive eval 3 weeks ago for same presentation, ED pharmacist called dispensing pharmacies (local and mail order) to cancel any remaining gabapentin refills Psych was consulted recommend restarting home psychiatric medications of amitriptyline, Wellbutrin, and sertraline.Patient and boyfriend both report that she has an initial appointment with psychiatric care scheduled. Recommend confirming this appointment and if she does not have this appointment, referring her to psychiatric care. as per psych "-Patient reports that she did take an unknown amount of gabapentin "for attention." She denies that she had suicidal intent with this action. She denies a history of attempts. She reports strong protective factors of her boyfriend and sharon. When speaking with her boyfriend, he reports that he cannot see her suiciding. He also denies past attempts that he knows of. He does admit that she does appear depressed but reports that he feels safe with her coming home. As such, she is psychiatrically cleared for discharge and is not seen to be at high risk for suicide at this time." And cleared the patient for discharge. Gabapentin was discontinued from the medication list. all electrolytes replaced. to have cbc and BMP repeated in one week. Morbid obesity: BMI 43 q was counseled on diet and nutrition MS: resumed home aubagio and dalfampridine when able, does have significant LE weakness- follows with [facility] neurology and was seen last last month and MS medicatiosn were refilled by the ANIMAL SCIENCE PROFESSOR yonathan. she is to follow up with them post discharge. i tried to reach the office at [phone] however i was unable to reach anyone. she has been taking these medications for one year ( no ADR reported by [facility] patient) and last filled medications were late aug and early sep as per pharmacist. she reports that she last saw her neurologist after her last admission. Chronic pain: discontinue gabapentin HTN: home lisinopril/hctz HLD: home statin Hypothyroidism: home synthroid COPD: home inhalers THC use disorder: Utox positive- was counseled Smoker: nicotine patch offered*- was counseled Pt/OT recommended ECF, SW and CM consulted "Met with patient to discuss discharge planning/needs. Patient voices her plan is to return home with her boyfriend at discharge. Voices she does not drive but her boyfriend takes her to all her appointments. Current DMEs: bsc, walker, cpap. Reports she has [facility] for nursing. This RNCM spoke with Annel who reports at this time only has therapy. Discussed PT/OT recommendations for SNF, patient refuses. This RNCM questioned if she would have 24/ supervision which was recommended by PT/OT due to high fall risk and patient reported yes. [facility] list was provided and encouraged patient to look over list and if she did change her mind to notify nursing staff. Patient at this time voices she would like [facility]. [facility] upon discharge will need to say Nursing, PT/OT. [facility] will need to be notified prior to patient discharging home" i discussed risks and benefits of the ECF with patient including , falls, ICH and etc however she continues to refuse ECF understanding the risks associated. PIR notified to provide patient with all follow up appointment. Discharge discussed with: patient, family, nurse, social work, case management, sustainable design consultant Time spent discussing smoking cessation with patient: more than 10 minutes - Time Spent with Patient Total time spent providing and/or coordinating discharge services: Time spent: Greater than 30 minutes (45) - Discharge Medications Prescriptions: Continue Famotidine [Heartburn Prevention] 20 mg PO DAILY Lisinopril-HCTZ 10-12.5 [Prinzide 10-12.5] 1 tab PO DAILY Sertraline [Zoloft] 200 mg PO DAILY BuPROPion SR (12 HR) [Wellbutrin SR] 150 mg PO BID Dalfampridine [Dalfampridine ER] 10 mg PO BID Levothyroxine [Synthroid] 125 mcg PO DAILY@0630 #30 tablet Promethazine [Phenergan] 25 mg PO Q6H PRN PRN Reason: Nausea Potassium Chloride [Klor-Con 10] 20 meq PO TID PRN PRN Reason: low potassium Diphenoxylate/Atropine [Lomotil 2.5 mg/0.025 mg] 1 tab PO TID PRN PRN Reason: Diarrhea Teriflunomide [Aubagio] 14 mg PO DAILY Albuterol Sulfate [Ventolin Hfa] 2 puff IH Q4H PRN PRN Reason: sob Atorvastatin [Lipitor] 40 mg PO HS Amitriptyline [Elavil] 50 mg PO DAILY Fluticasone/Salmeterol [Advair Hfa 115-21 Mcg Inhaler] 2 puff IH DAILY Ipratropium/Albuterol Neb [Duoneb] 3 ml IH Q6H PRN PRN Reason: Shortness Of Breath Melatonin 5 mg PO HS Multivitamin [One Daily Essential] 1 tab PO DAILY Discontinued Gabapentin [Neurontin] 300 mg PO TID #90 capsule Home Medications: Famotidine [Heartburn Prevention] 20 mg PO DAILY 09/19/17 [History] Lisinopril-HCTZ 10-12.5 [Prinzide 10-12.5] 1 tab PO DAILY 12/29/17 [History] BuPROPion SR (12 HR) [Wellbutrin SR] 150 mg PO BID 05/20/18 [History] Sertraline [Zoloft] 200 mg PO DAILY 05/20/18 [History] Dalfampridine [Dalfampridine ER] 10 mg PO BID 08/31/18 [History] Levothyroxine [Synthroid] 125 mcg PO DAILY@0630 #30 tablet 09/03/18 [Rx] Albuterol Sulfate [Ventolin Hfa] 2 puff IH Q4H PRN 09/26/18 [History] Atorvastatin [Lipitor] 40 mg PO HS 09/26/18 [History] Diphenoxylate/Atropine [Lomotil 2.5 mg/0.025 mg] 1 tab PO TID PRN 09/26/18 [History] Potassium Chloride [Klor-Con 10] 20 meq PO TID PRN 09/26/18 [History] Promethazine [Phenergan] 25 mg PO Q6H PRN 09/26/18 [History] Teriflunomide [Aubagio] 14 mg PO DAILY 09/26/18 [History] Amitriptyline [Elavil] 50 mg PO DAILY 10/16/18 [History] Fluticasone/Salmeterol [Advair Hfa 115-21 Mcg Inhaler] 2 puff IH DAILY 10/16/18 [History] Ipratropium/Albuterol Neb [Duoneb] 3 ml IH Q6H PRN 10/16/18 [History] Melatonin 5 mg PO HS 10/16/18 [History] Multivitamin [One Daily Essential] 1 tab PO DAILY 10/16/18 [History] Allergies/Adverse Reactions: Allergy/AdvReac Type Severity Reaction Status Date / Time vancomycin Allergy Itching Verified 10/16/18 15:33 Date of admission: 10/14/18 14:48 Primary care physician: PCP NONE Consults: 10/16/18 13:31 Consult to Occupational Therapy [CONS] Routine Comment: Evaluate, develop and implement POC Reason for Consult: s/p overdose leading to intubation, doing better now, planning d/c Does patient have active BEDREST order?: No Is patient medically & hemodynamically stable?: Yes Consult to Physical Therapy [CONS] Routine Comment: Evaluate, develop and implement POC Reason for Consult: eval ability to ambulate following overdose Does patient have active BEDREST order?: No Is patient medically & hemodynamically stable?: Yes 10/17/18 08:19 Consult to Psychiatry [CONS] Routine Consulting Provider: Psychiatry [facility] Reason consult: Other Other reason and/or additional details: overdose gabapentin - Constitutional Vitals: Temp Pulse Resp BP Pulse Ox 98 F 89 16 127/83 98 10/18/18 07:22 10/18/18 07:22 10/18/18 09:33 10/18/18 07:22 10/18/18 09:33 Exam: General: NAD, good eye contact, obese Thoracic: lungs clear, no wheezing or crackles Cardio: Normal S1 and S2, regular rate and rhythm, no murmurs Abdomen: Soft, nondistended Extremities: Warm, well perfused. DP pulses 2+ b/l. Does have pitting edema b/l LE improved from yesterday Skin: Intact. No rashes, bruises, or ulcers Neuro: awake and fully oriented, speech fluent, answers abstract questions, 3/5 strength b/l LE - Patient Status Disposition: Home Health Service Condition: Fair Functional capacity at discharge: uses cane/walker Overall status at discharge: patient is progressing back to baseline - Discharge Instructions Instructions: Suicide Prevention for Adults (DC) Follow Up With: Johnie Farley MD [Partnered Physician] - 10/26/18 9:45 am - Diet and Activity Activity: ambulate only with your walker, as per physical therapy Diet: advance to your usual diet
== END 2018-10-18 15:05 | disposition home health service (06) | DRG 917 ==
LOC: SUATTDRO → EMEROOARM 12:11 → SUATTDRO 14:48 → ICNU 14:48 → 3ANU 10-15 19:42
PROVIDERS: ADMIT Internal Medicine; ATTEND Internal Medicine

== ENCOUNTER 2019-03-15 12:40 | Observation (INO) ==
[2019-03-15 13:13] LABS: Basophils % 0.3 %; Eosinophils # 0.2 K/mcL (0.0-0.6); Eosinophils % 1.9 %; Hematocrit 36.2 % (35.3-44.9); Hemoglobin 11.7 g/dL (11.5-15.4); Immature Granulocytes % 0.6 % (0-4); Lymphocytes % 10.7 %; Mean Corpuscular HGB Conc 32.3 g/dL (31.6-35.5); Mean Corpuscular Hemoglobin 28.5 pg (28.0-33.3); Mean Corpuscular Volume 88.1 fL (83.0-100.0); Mean Platelet Volume 10.9 fL (9.4-12.4); Monocytes # 0.6 K/mcL (0.0-1.3); Neutrophils # 7.8 K/mcL (1.6-8.9); Platelet Count 226 K/mcL (140-400); Red Blood Count 4.11 M/mcL (3.82-4.97); Red Cell Distribution Width 14.6 % (11.5-14.5); Segmented Neutrophils % 80.5 %; White Blood Count 9.7 K/mcL (4.3-11.1)
--- NOTE | 2019-03-15 13:13 | Emergency Department Note ---
Disposition Clinical Impression: Suicide attempt Overdose Qualifiers: Encounter type: initial encounter Injury intent: intentional self-harm Qualified Code(s): T50.902A - Poisoning by unspecified drugs, medicaments and biological substances, intentional self-harm, initial encounter UTI (urinary tract infection) Qualifiers: Urinary tract infection type: site unspecified Hematuria presence: without hematuria Qualified Code(s): N39.0 - Urinary tract infection, site not specified Hypothyroidism Qualifiers: Hypothyroidism type: unspecified Qualified Code(s): E03.9 - Hypothyroidism, unspecified Disposition: Admitted As Inpatient Condition: Undetermined Time of Disposition: 14:19 General Adult HPI - General Stated complaint: Overdose Time Seen by Provider: 03/15/19 12:50 Source: patient, EMS Limitations: no limitations Nursing Notes Reviewed: Yes Vital Signs Reviewed: Yes - History of Present Illness HPI Narrative: Patient is a 58-year-old female with a past medical history including COPD, hypertension, hyperlipidemia, congestive heart failure, anxiety and depression, presenting with suicide attempt and overdose. The patient states her signific ant other left the home. She was very upset about this. She took 2 handfuls of her medications. She states she took about 15 100 mg Zoloft and 5 150 mg Wellbutrin. This is an approximation. She states immediately after, she has been feeling nauseous and has had several episodes of nonbilious nonbloody emesis. She denies chest pain, shortness of breath, feeling tired, lightheadedness or dizziness. She states she has chronic intermittent headaches and abdominal pain but no new headaches or abdominal pain. She states she has had suicidal ideation in the past but not attempt. She also endorses taking 3 200 mg ibuprofen for her headache but no other medications. Pain Scale: 0 - Related Data Home Medications Medication Instructions Recorded Confirmed Famotidine [Heartburn Prevention] 20 mg PO DAILY 09/19/17 03/15/19 Albuterol Sulfate [Ventolin Hfa] 2 puff IH Q4H PRN 09/26/18 03/15/19 Atorvastatin [Lipitor] 40 mg PO HS 09/26/18 03/15/19 Fluticasone/Salmeterol [Advair Hfa 2 puff IH BID 10/16/18 03/15/19 115-21 Mcg Inhaler] Budesonide/Formoterol 160/4.5 2 puff IH BIDR 11/28/18 03/15/19 [Symbicort 160/4.5] Lisinopril/Hydrochlorothiazide 1 each PO DAILY 11/28/18 03/15/19 [Zestoretic 10-12.5 mg Tablet] Pantoprazole Sodium [Protonix] 40 mg PO DAILY 11/28/18 03/15/19 Previous Rx's Medication Instructions Recorded Levothyroxine [Synthroid] 125 mcg PO DAILY@0630 #30 tablet 09/03/18 Ondansetron ODT [Zofran ODT] 4 mg SL Q8HR PRN #12 tab.rapdis 11/28/18 Allergies Allergy/AdvReac Type Severity Reaction Status Date / Time vancomycin Allergy Itching Verified 02/28/19 02:04 All systems ED: reviewed and negative except as stated. Review of Systems: As Per HPI Constitutional: Denies: fever, chills Eyes: Denies: vision change ENT ED: Denies: congestion Cardiovascular: Denies: chest pain, palpitations Respiratory: Denies: cough, dyspnea Gastrointestinal: Reports: abdominal pain, nausea, vomiting. Denies: diarrhea Neurological: Denies: headache, weakness Past Medical History - Past Medical History Attestation: Yes The following information was validated with the patient. 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: Reports: bilateral tubal ligation - Social History Smoking Status: Current every day smoker Smokeless Tobacco Status: No Alcohol use: Reports: none Drug use: Reports: marijuana Physical Exam - General Limitations: no limitations General appearance: alert, other (diaphoretic) - Head Head exam: atraumatic, normocephalic - Eye Eye exam: Present: normal appearance, PERRL, EOMI - ENT ENT exam: normal exam, normal oropharynx - Neck Neck exam: Present: normal inspection, trachea midline - Chest Chest inspection: Present: normal inspection, symmetric chest wall rise - Respiratory Respiratory exam: Present: normal lung sounds bilaterally. Absent: respiratory distress, wheezes - Cardiovascular Cardiovascular exam: Present: normal rhythm, tachycardia, normal heart sounds - Abdominal Exam Abdominal exam: Present: soft, Non-Tender. Absent: distention, guarding, rebound - Extremities Exam Extremities exam: Present: normal capillary refill, other (bilateral lower extremity swelling, 1+ pitting edema). Absent: calf tenderness - Neurological Exam Neurological exam: Present: alert, oriented X3 - Psychiatric Psychiatric exam: Present: normal affect, normal mood - Skin Skin exam: Present: warm, dry, diaphoresis. Absent: pallor Course Vital Signs Temperature 98.9 F 03/15/19 12:53 Pulse Rate 104 03/15/19 12:53 Respiratory Rate 20 03/15/19 12:53 Blood Pressure 173/107 03/15/19 12:53 O2 Sat by Pulse Oximetry 97 03/15/19 12:53 Temperature 98.9 F 03/15/19 12:53 Pulse Rate 104 03/15/19 12:53 Respiratory Rate 20 03/15/19 12:53 Blood Pressure 173/107 03/15/19 12:53 O2 Sat by Pulse Oximetry 97 03/15/19 12:53 Oxygen Delivery Oxygen Delivery Room Air Medical Decision Making - MDM Narrative Medical decision making narrative: Discussed with poison control. They state the patient will need to be admitted due to the wellbutrin and need 24 hour observation as she can have delayed seizures. We will also obtain medical clearance. We will obtain EKG, CBC, BMP, urinalysis, urine drug screen. Patient has been pink slipped. 14:00 Patient TSH is elevated. She is not in a myxedema coma. She also has a urinary tract infection. We will give her Rocephin. We will give her a liter of IV fluids. As this has been paged for admission. She will need to be evaluated by psychiatry. 14:[address] Blood, hospitalist who accepts admission. Patient remains stable. - Medical Records Medical records reviewed: Yes I reviewed the patient's medical records. - Lab Data Lab results reviewed: Yes I reviewed the patient's lab results. Result diagrams: 03/15/19 12:50 03/15/19 12:50 Lab Results 03/15/19 03/15/19 03/15/19 Range/Units 12:50 12:50 13:09 WBC 9.7 (4.3-11.1) K/mcL RBC 4.11 (3.82-4.97) M/mcL Hgb 11.7 (11.5-15.4) g/dL Hct 36.2 (35.3-44.9) % MCV 88.1 (83.0-100.0) fL MCH 28.5 (28.0-33.3) pg MCHC 32.3 (31.6-35.5) g/dL RDW 14.6 H (11.5-14.5) % Plt Count 226 (140-400) K/mcL MPV 10.9 (9.4-12.4) fL Immature Gran % 0.6 (0-4) % Seg Neutrophils % 80.5 % Lymphocytes % 10.7 % Monocytes % 6.0 % Eosinophils % 1.9 % Basophils % 0.3 % Neutrophils # 7.8 (1.6-8.9) K/mcL Lymphocytes # 1.0 (0.6-4.6) K/mcL Monocytes # 0.6 (0.0-1.3) K/mcL Eosinophils # 0.2 (0.0-0.6) K/mcL Basophils # 0.0 (0.0-0.2) K/mcL Sodium 139 (136-145) mEq/L Potassium 3.5 (3.5-5.1) mEq/L Chloride 104 (98-107) mEq/L Carbon Dioxide 24 (23-29) mEq/L BUN 11 (6-20) mg/dL Creatinine 1.06 (0.60-1.20) mg/dL Est GFR ( Amer) > 60 (> 60) Est GFR (Non-Af Amer) 53 L (> 60) BUN/Creatinine Ratio 10 (6-26) Glucose 126 H (70-105) mg/dL Calculated Osmolality 289 (280-300) Calcium 10.0 (8.6-10.3) mg/dL TSH 16.860 H (0.340-5.600) mcIU/mL Ur Specimen Adequacy Urine Color Yellow (Yellow) Urine Clarity Clear (Clear) Urine pH 5.0 (5.0-8.0) pH Units Ur Specific [place] 1.027 H (1.010-1.025) Urine Protein 100 H (Neg-Trace) mg/dL Urine Glucose (UA) Normal (Normal) mg/dL Urine Ketones Negative (Negative) mg/dL Urine Blood Negative (Negative) Urine Nitrite Positive A (Negative) Urine Bilirubin Small H (Negative) Urine Urobilinogen Normal (Normal) mg/dL Ur Leukocyte Esterase Small H (Negative) Urine Microscopic WBC Present (0-3) per hpf Ur Squamous Epith Cells Present (None-Few) per lpf Calcium Oxalate Crystal Present Amorphous Sediment Present (Few) Urine Bacteria Present (None-Few) per hpf Salicylates < 2.5 L (15.0-30.0) mg/dL Urine Opiates Screen (Gwvalg=310) ng/mL Ur Buprenorphine Scrn (Cutoff=5) ng/mL Acetaminophen < 10 L (10-20) mcg/mL Ur Barbiturates Screen (Aasqmj=504) ng/mL Ur Phencyclidine Scrn (Cutoff=25) ng/mL Ur Amphetamines Screen (Zbtgbt=0286) ng/mL U Benzodiazepines Scrn (Tqgdmj=301) ng/mL Urine Cocaine Screen (Cutoff= 300) ng/mL U Marijuana (THC) Screen (Cutoff = 50) ng/mL Ur Drug Screen Interp Ethyl Alcohol < 10 (Less than 10) mg/dL 03/15/19 Range/Units 13:15 WBC (4.3-11.1) K/mcL RBC (3.82-4.97) M/mcL Hgb (11.5-15.4) g/dL Hct (35.3-44.9) % MCV (83.0-100.0) fL MCH (28.0-33.3) pg MCHC (31.6-35.5) g/dL RDW (11.5-14.5) % Plt Count (140-400) K/mcL MPV (9.4-12.4) fL Immature Gran % (0-4) % Seg Neutrophils % % Lymphocytes % % Monocytes % % Eosinophils % % Basophils % % Neutrophils # (1.6-8.9) K/mcL Lymphocytes # (0.6-4.6) K/mcL Monocytes # (0.0-1.3) K/mcL Eosinophils # (0.0-0.6) K/mcL Basophils # (0.0-0.2) K/mcL Sodium (136-145) mEq/L Potassium (3.5-5.1) mEq/L Chloride (98-107) mEq/L Carbon Dioxide (23-29) mEq/L BUN (6-20) mg/dL Creatinine (0.60-1.20) mg/dL Est GFR ( Amer) (> 60) Est GFR (Non-Af Amer) (> 60) BUN/Creatinine Ratio (6-26) Glucose (70-105) mg/dL Calculated Osmolality (280-300) Calcium (8.6-10.3) mg/dL TSH (0.340-5.600) mcIU/mL Ur Specimen Adequacy Urine Color (Yellow) Urine Clarity (Clear) Urine pH (5.0-8.0) pH Units Ur Specific [place] (1.010-1.025) Urine Protein (Neg-Trace) mg/dL Urine Glucose (UA) (Normal) mg/dL Urine Ketones (Negative) mg/dL Urine Blood (Negative) Urine Nitrite (Negative) Urine Bilirubin (Negative) Urine Urobilinogen (Normal) mg/dL Ur Leukocyte Esterase (Negative) Urine Microscopic WBC (0-3) per hpf Ur Squamous Epith Cells (None-Few) per lpf Calcium Oxalate Crystal Amorphous Sediment (Few) Urine Bacteria (None-Few) per hpf Salicylates (15.0-30.0) mg/dL Urine Opiates Screen Negative (Ldagyu=207) ng/mL Ur Buprenorphine Scrn Negative (Cutoff=5) ng/mL Acetaminophen (10-20) mcg/mL Ur Barbiturates Screen Negative (Prercf=272) ng/mL Ur Phencyclidine Scrn Negative (Cutoff=25) ng/mL Ur Amphetamines Screen Negative (Fkomsc=3629) ng/mL U Benzodiazepines Scrn Negative (Tkvslp=836) ng/mL Urine Cocaine Screen Negative (Cutoff= 300) ng/mL U Marijuana (THC) Screen Positive H (Cutoff = 50) ng/mL Ur Drug Screen Interp See Below Ethyl Alcohol (Less than 10) mg/dL - Radiology Data Radiology results reviewed: Yes I reviewed the patient's radiology results. - EKG Data EKG #1 EKG attestation: Yes I reviewed and interpreted this EKG. EKG results narrative: EKG obtained at 12:15 shows sinus tachycardia with heart rate 107, NJ interval 157, QRS duration 106, QTC 481, left axis deviation, no ST elevation or depression, no widening QRS, compared to old EKG on 10/28/2018 which shows no changes. Attestation Statement - Attestation Attestation: I, Nato Delarosa, examined this patient and my medical decision-making was reviewed with the COURTESY CLERK/PA/Advanced Practice Nurse/Resident Physician. I agree with the documented findings, disposition and treatment plan as described except to the extent set forth below. 58-year-old female presents emergency Department with concerns of nausea and vomiting after overdose of her medications. Patient intentionally overdosed on her Wellbutrin and Zoloft secondary to increased recent life stressors. Patient states she took a handful of each of the medications she estimated about 15 pills of the Zoloft 100 mg and 5 pills of the Wellbutrin extended release 150 mg. Patient also took multiple ibuprofens. Patient vomited multiple times after the ingestion of medications however she did not notice that there was pills in the emesis. Patient denies chest pain, syncopal event. She took these pills 1.5 hours prior to arrival. She took them in an attempt to end her life. We spoke with was jolanta recommended admission for at least 24 hours for further care and evaluation. Patient was pink slipped in the emergency department and she will be admitted to the hospitalist for further care and evaluation.
[2019-03-15 13:25] LABS: Bilirubin,Urine Small (Negative); Blood,Urine Negative (Negative); Color,Urine Yellow (Yellow); Glucose,Urine (UA) Normal (Normal); Ketones,Urine Negative (Negative); Leukocyte Esterase,Urine Small (Negative); Nitrite,Urine Positive (Negative); Protein,Urine 100 mg/dL (Neg-Trace); Specific Gravity,Urine 1.027 (1.010-1.025); Urobilinogen,Urine Normal (Normal)
[2019-03-15 13:27] LABS: Clarity,Urine Clear (Clear)
[2019-03-15 13:29] LABS: Acetaminophen < 10 mcg/mL (10-20); BUN/Creatinine Ratio 10 (6-26); Blood Urea Nitrogen 11 mg/dL (6-20); Carbon Dioxide 24 mEq/L (23-29); Chloride 104 mEq/L (98-107); Ethanol < 10 mg/dL (Less than 10); Glucose 126 mg/dL (70-105); Osmolality,Calculated 289 (280-300); Potassium 3.5 mEq/L (3.5-5.1); Salicylate < 2.5 mg/dL (15.0-30.0); Sodium 139 mEq/L (136-145); eGFR For African Americans > 60 (> 60); eGFR For Non-African Americans 53 (> 60)
[2019-03-15 13:36] LABS: Squamous Epithelial Cell,Urine Present per lpf (None-Few)
[2019-03-15 13:37] LABS: Amphetamine Screen,Urine Negative ng/mL (Cutoff=1000); Barbiturate Screen,Urine Negative ng/mL (Cutoff=200); Benzodiazepines Screen,Urine Negative ng/mL (Cutoff=200); Cannabinoid Screen,Urine Positive ng/mL (Cutoff = 50); Cocaine Screen,Urine Negative ng/mL (Cutoff= 300); Opiate Screen,Urine Negative ng/mL (Cutoff=300); Phencyclidine Screen,Urine Negative ng/mL (Cutoff=25)
[2019-03-15 13:37] LABS: Amorphous Sediment,Urine Present (Few); Calcium Oxalate Crystals,Urine Present; WBC,Urine Present per hpf (0-3)
[2019-03-15 13:38] LABS: Bacteria,Urine Present per hpf (None-Few)
[2019-03-15] MEDS ORDERED: cefTRIAXone 1,000 MG in Water for inj. (sterile) 10 ML IVP ONE (13:58)
[2019-03-15] MEDS ORDERED: 0.9 % Sodium Chloride 1,000 ML IVC ONE (13:59)
--- NOTE | 2019-03-15 14:37 | Internal Med History&Physical ---
Date of Encounter: 03/15/19 Time of Encounter: 14:37 Internal Medicine - H&P: HPI Chief complaint: suicide attempt and overdose History of present illness: Ms. Copeland is a 58 year old female with PMH asthma, cancer, CHF, COPD, dementia, GERD, hyperlipidemia, hypertension, thyroid disease, sleep apnea. hypothyroidism, rectal cancer presented with suicide attempt and overdose after her significant other left her. She stated that she took about 15 100 mg Zoloft and 5 150 mg Wellbutrin and ibuprofen, she started to to have several episodes of nonbilious nonbloody emesis. She denies chest pain, shortness of breath, lightheadedness, palpitation, orthopnea, paroxysmal nocturnal dyspnea, and progressive worsening of lower extremity edema. The patient was evaluated by the ER staff and poison control was called and contacted, they recommended the patient will be admitted for observation for 24 hours. The patient was pink slipped by the ER staff . Past Med Surg Social Fam HX - Past Medical History Medical history: asthma, cancer, CHF, COPD, dementia, GERD, hyperlipidemia, hypertension, thyroid disease Additional medical history: sleep apnea. hypothyroidism. rectal cancer Psychiatric history: anxiety, bipolar, depression, schizophrenia, previous psychiatric hospitalization - Past Surgical History Surgical History: appendectomy, breast surgery, knee replacement, other Additional surgical history: Breast reduction - Social History Smoking Status: Current every day smoker Smokeless Tobacco Status: No Alcohol use: none Drug use: marijuana - Family History Brother Family Member Ethnicity: Non- Living Status: Still Living Sister Family Member Ethnicity: Non- Living Status: Still Living Father Family Member Ethnicity: Non- Living Status: Hx Family Cardiac Disorders: Yes (CAD) Hx Family Respiratory Disorders: Yes (COPD) Hx Family Cancer: No Hx Family GI Disorders: No Hx Family Endocrine Disorder: No Hx Family Neuromuscular Disorders: No Hx Family Neurologic Disorders: No Hx Family HEENT Disorders: No Hx Family Autoimmune Disorders: No Mother Family Member Ethnicity: Non- Living Status: Hx Family Cardiac Disorders: No Hx Family Respiratory Disorders: No Hx Family Cancer: No Hx Family GI Disorders: No Hx Family Endocrine Disorder: No Hx Family Neuromuscular Disorders: No Hx Family Neurologic Disorders: No Hx Family HEENT Disorders: No Hx Family Autoimmune Disorders: No Internal Medicine - H&P: Meds Famotidine [Heartburn Prevention] 20 mg PO DAILY 09/19/17 [History] Albuterol Sulfate [Ventolin Hfa] 2 puff IH Q4H PRN 09/26/18 [History] Atorvastatin [Lipitor] 40 mg PO QAM 09/26/18 [History] Fluticasone/Salmeterol [Advair Hfa 115-21 Mcg Inhaler] 2 puff IH BID 10/16/18 [History] Budesonide/Formoterol 160/4.5 [Symbicort 160/4.5] 2 puff IH BIDR 11/28/18 [History] Lisinopril/Hydrochlorothiazide [Zestoretic 10-12.5 mg Tablet] 1 tab PO DAILY 11/28/18 [History] Ondansetron ODT [Zofran ODT] 4 mg SL Q8HR PRN #12 tab.rapdis 11/28/18 [Rx] Pantoprazole Sodium [Protonix] 40 mg PO DAILY 11/28/18 [History] Acetaminophen [Pain Relief] 1,500 mg PO DAILY PRN 03/17/19 [History] Dextran 70/Hypromellose [Artificial Tears Eye Drops] 2 drop BOTH EYES TID PRN 03/17/19 [History] Diphenoxylate/Atropine [Lomotil 2.5 mg/0.025 mg] 1 tab PO TID 03/17/19 [History] Furosemide [Lasix] 20 mg PO DAILY 03/17/19 [History] Ibuprofen [Ibu-200] 600 mg PO DAILY PRN 03/17/19 [History] Levothyroxine Sodium [Levoxyl] 125 mcg PO QAM 03/17/19 [History] Allergy/AdvReac Type Severity Reaction Status Date / Time vancomycin Allergy Itching Verified 03/17/19 17:40 All Systems PM: A 10-system review of systems was performed and is negative for pertinent findings except as documented above in the HPI. - Constitutional Vitals: Temp Pulse Resp BP Pulse Ox 98.9 F 104 20 173/107 97 03/15/19 12:53 03/15/19 12:53 03/15/19 12:53 03/15/19 12:53 03/15/19 12:53 General appearance: Present: A&O X 3 Exam: . - Head Head exam: Present: atraumatic, normocephalic - Neck Neck exam general surgery: Present: supple, trachea midline. Absent: lymphadenopathy - Respiratory Respiratory exam: Present: CTAB. Absent: accessory muscle use, rales, rhonchi, wheezes - Cardiovascular Cardiovascular exam: Present: RRR, +S1, +S2. Absent: diastolic murmur, gallop, rubs, systolic murmur - GI/Abdominal GI/Abdominal exam: Present: normal bowel sounds, soft, no peritoneal signs. Absent: distended, tenderness - Extremities Exam Extremities exam: Present: warm, radial pulses palpable and symmetrical. Absent: calf tenderness, cyanotic, pedal edema Internal Med - H&P Results - Labs CBC & Chem 7: 03/17/19 04:06 03/16/19 01:45 Labs: Short CBC 03/15/19 Range/Units 12:50 WBC 9.7 (4.3-11.1) K/mcL Hgb 11.7 (11.5-15.4) g/dL Hct 36.2 (35.3-44.9) % Plt Count 226 (140-400) K/mcL Neutrophils # 7.8 (1.6-8.9) K/mcL BMP 03/15/19 12:50 Sodium 139 Potassium 3.5 Chloride 104 Carbon Dioxide 24 BUN 11 Creatinine 1.06 Glucose 126 H Calcium 10.0 Urine 03/15/19 Range/Units 13:09 Urine Color Yellow (Yellow) Urine Clarity Clear (Clear) Urine pH 5.0 (5.0-8.0) pH Units Ur Specific [place] 1.027 H (1.010-1.025) Urine Protein 100 H (Neg-Trace) mg/dL Urine Glucose (UA) Normal (Normal) mg/dL - Assessment and Plan (1) Overdose Status: Acute Assessment and plan: To attempt suicide and overdose after her significant other left her. She stated that she took about 15 100 mg Zoloft and 5 150 mg Wellbutrin and ibuprofen, Poison control was contacted by the ER and they recommended that patient will be observed for the next 24 hours for possible seizures activity. Qualifiers: Qualified Code(s): T50.901A - Poisoning by unspecified drugs, medicaments and biological substances, accidental (unintentional), initial encounter (2) Hypothyroidism Status: Acute Assessment and plan: We will obtain TSH and cont. thyroxine. Qualifiers: Hypothyroidism type: unspecified Qualified Code(s): E03.9 - Hypothyroidism, unspecified (3) Polysubstance abuse Status: Chronic Assessment and plan: psychiatry was consulted for further evaluation and management. (4) Depression Status: Chronic Assessment and plan: we'll continue home medication and been evaluated by psych Qualifiers: Depression Type: major depressive disorder Major depression recurrence: recurrent Active/Remission status: in remission of unspecified degree Qualified Code(s): F33.40 - Major depressive disorder, recurrent, in remission, unspecified (5) Multiple sclerosis Status: Chronic (6) CHF (congestive heart failure) Status: Chronic Qualifiers: Heart failure type: diastolic Heart failure chronicity: chronic Qualified Code(s): I50.32 - Chronic diastolic (congestive) heart failure (7) Bipolar disorder Status: Chronic Qualifiers: Active/Remission status: currently active Current bipolar episode type: depressed Current episode severity: moderate Qualified Code(s): F31.32 - Bipolar disorder, current episode depressed, moderate (8) Anxiety and depression Status: Chronic (9) Schizophrenia Status: Chronic Qualifiers: Schizophrenia type: unspecified Qualified Code(s): F20.9 - Schizophrenia, unspecified (10) Morbid obesity with BMI of 40.0-44.9, adult Status: Chronic (11) Marijuana abuse Status: Acute - Time Spent With Patient Total time spent is greater than 50% in coordination of care (as documented) at patient's floor/unit and/or counseling patient:
[2019-03-15 14:59] LABS: Magnesium 2.2 mg/dL (1.6-2.6)
--- NOTE | 2019-03-15 16:11 | Electrocardiograph Report ---
[place] [id number] Test Date: 2019-03-15 Pat Name: Connie Copeland Department: [id number] Room: 3B13 Gender: F [employer] Car [employer]: : 1960 Requested By: Eda Magdaleno Order Number: [id number] Reading MD: Kelly Meadows Measurements Intervals [place] Rate: 107 P: 65 [place]: 157 QRS: -38 QRSD: 106 T: 22 QT: 360 QTc: 481 Interpretive Statements Sinus tachycardia Left axis deviation Low voltage, precordial leads Abnormal R-wave progression, early transition Electronically Signed On 03-15-2019 16:09:43 EDT by Kelly Meadows
[2019-03-15] MEDS ORDERED: Naloxone 0.4 MG/ML INJ IVP PRN (20:04)
[2019-03-15] MEDS: Ondansetron ODT 4 MG TAB.RAPDIS SL PRN (20:56)
[2019-03-15] MEDS ORDERED: Acetaminophen 325 MG TABLET PO PRN (22:29)
[2019-03-16 01:30] LABS: Bilirubin,Urine Negative (Negative); Blood,Urine Negative (Negative); Clarity,Urine Cloudy (Clear); Color,Urine Yellow (Yellow); Glucose,Urine (UA) Normal (Normal); Ketones,Urine Negative (Negative); Leukocyte Esterase,Urine Trace (Negative); Nitrite,Urine Negative (Negative); PH,Urine 5.5 pH Units (5.0-8.0); Protein,Urine Trace mg/dL (Neg-Trace); Specific Gravity,Urine 1.026 (1.010-1.025); Urobilinogen,Urine Normal (Normal)
[2019-03-16 01:32] LABS: Hyaline Casts,Urine Moderate per lpf (None-Few); Squamous Epithelial Cell,Urine Many per lpf (None-Few); WBC,Urine 15-30 per hpf (0-3)
[2019-03-16 01:50] LABS: Bacteria,Urine Few per hpf (None-Few); Mucus,Urine Few (Few); Oval Fat Bodies,Urine Present (Not Present); RBC,Urine 0-3 per hpf (0-3); Yeast,Urine Moderate per hpf (None Seen)
[2019-03-16 02:01] LABS: Basophils % 0.4 %; Eosinophils # 0.1 K/mcL (0.0-0.6); Eosinophils % 1.2 %; Hematocrit 30.8 % (35.3-44.9); Immature Granulocytes % 0.5 % (0-4); Lymphocytes # 1.1 K/mcL (0.6-4.6); Lymphocytes % 13.2 %; Mean Corpuscular HGB Conc 31.2 g/dL (31.6-35.5); Mean Corpuscular Hemoglobin 27.9 pg (28.0-33.3); Mean Corpuscular Volume 89.5 fL (83.0-100.0); Mean Platelet Volume 10.8 fL (9.4-12.4); Monocytes # 0.6 K/mcL (0.0-1.3); Monocytes % 6.9 %; Neutrophils # 6.6 K/mcL (1.6-8.9); Platelet Count 168 K/mcL (140-400); Red Blood Count 3.44 M/mcL (3.82-4.97); Red Cell Distribution Width 14.5 % (11.5-14.5); Segmented Neutrophils % 77.8 %; White Blood Count 8.4 K/mcL (4.3-11.1)
[2019-03-16 02:02] LABS: Hemoglobin 9.6 g/dL (11.5-15.4)
[2019-03-16 02:09] LABS: Prothrombin Time 11.6 Seconds (9.4-12.1)
[2019-03-16 02:12] LABS: Activated Partial Thrombo Time 29.3 Seconds (26.0-36.0)
[2019-03-16 02:19] LABS: Alanine Aminotransferase 14 Units/L (7-52); Albumin 3.8 g/dL (3.5-5.7); Albumin/Globulin Ratio 1.6 (1.1-2.2); Alkaline Phosphatase 92 Units/L (34-104); Aspartate Amino Transferase 13 Units/L (13-39); BUN/Creatinine Ratio 11 (6-26); Bilirubin,Total 0.4 mg/dL (0.3-1.0); Blood Urea Nitrogen 11 mg/dL (6-20); Calcium 8.7 mg/dL (8.6-10.3); Carbon Dioxide 27 mEq/L (23-29); Chloride 107 mEq/L (98-107); Chol/HDL Ratio 4.8 (0-4.9); Cholesterol 208 mg/dL (< 200); Globulin 2.4 g/dL (2.4-3.5); Glucose 104 mg/dL (70-105); HDL Cholesterol 43 mg/dL (40-59); LDL Cholesterol,Calculated 140 mg/dL (0-99); Magnesium 2.1 mg/dL (1.6-2.6); Osmolality,Calculated 288 (280-300); Phosphorous 4.5 mg/dL (2.7-4.5); Potassium 3.8 mEq/L (3.5-5.1); Sodium 139 mEq/L (136-145); Total Protein 6.2 g/dL (6.4-8.9); Triglycerides 125 mg/dL (< 150); eGFR For African Americans > 60 (> 60); eGFR For Non-African Americans 56 (> 60)
[2019-03-16] MEDS: Nicotine 7 MG PATCH.TD24 TD SCH ×2 (04:37→20:09)
[2019-03-16] MEDS ORDERED: Ondansetron ODT 4 MG TAB.RAPDIS SL PRN (05:17)
[2019-03-16] MEDS: Budesonide/Formoterol 160/4.5 1 PUFF INH IH SCH ×2 (07:58→20:22)
[2019-03-16] MEDS: Famotidine 20 MG TABLET PO SCH (08:00)
--- NOTE | 2019-03-16 08:14 | Internal Med Progress Note ---
<Leti Hernandez - Last Filed: 03/16/19 14:51> Hospitalist Progress Note - Encounter Date of Encounter: 03/16/19 Time of Encounter: 08:30 - Subjective Interval History: Patient seen examined at bedside she is alert and oriented times 3 resting comfortably in bed. She denies palpitations, chest pain, shortness of breath, fever, chills. She admits to headache that she has had for the past 2 weeks and blurry vision that she has had for over a month. She reports that she has been noncompliant with her medications for MS. She denies any more suicidal ideations or homicidal ideations. - Exam Vitals: Temp Pulse Resp BP Pulse Ox 98.2 F 91 16 138/81 93 03/16/19 06:30 03/16/19 06:30 03/16/19 08:01 03/16/19 06:30 03/16/19 08:01 Exam: Gen.: Vitals noted. No acute distress. AAOx3 HEENT: oropharynx clear, Normocephalic, atraumatic Cardiac: RRR, no murmur, +S1/S2 Pulmonary: CTA bilaterally, no wheezes, rales or rhonchi, equal chest expansion Abdomen: soft, nontender, Bowel sounds noted, no guarding Extremities: +BLE edema, nontender calf, no cyanosis or clubbing Neuro: A&Ox3, moves all extremities, no focal deficits Psych: Appropriate mood and behavior - Assessment and Plan (1) Suicide attempt Current Visit: Yes Status: Acute Assessment and Plan: Patient had a suicide attempt by taking 20 Zoloft and 5 Wellbutrin. She was upset that her significant other left her. She had reported that this was her 1st attempt however she told psychiatry that this was her 2nd attempt. In the ED poison control was called and recommended inpatient observation. -Afebrile, hemodynamically stable, no acute distress -EKG NSR, no ST or T wave changes indicating ischemia Plan -psychiatry consulted and recommends inpatient psychiatry admission once medically cleared. Will likely discharge her to tomorrow after configure mean hemoglobin stability. -Continue with sitter -continue with cardiac telemetry (2) Overdose Current Visit: Yes Status: Acute Assessment and Plan: Patient admitted to taking 20 Zoloft, 5 Wellbutrin See plan above. (3) Polysubstance abuse Current Visit: No Status: Chronic Assessment and Plan: Patient admitted to smoking marijuana. Urine drug screen was positive for marijuana. She denied any other drug use. She smokes cigarettes 1ppd, counseled on smoking cessation. (4) Depression Current Visit: No Status: Chronic Assessment and Plan: Patient has a history of depression not taking anything for treatment. (5) Multiple sclerosis Current Visit: No Status: Chronic Assessment and Plan: The patient has multiple sclerosis however she has not taken medication for this for a long time. She does admit to blurry vision for over a month now. She was instructed to follow-up with her neurologist in [place] as soon as she is discharged from hospital as the blurry vision may be from her MS being untreated. She stated clear understanding and agreed. (6) Morbid obesity with BMI of 40.0-44.9, adult Current Visit: No Status: Chronic Assessment and Plan: Needs lifestyle changes (7) Marijuana abuse Current Visit: No Status: Acute (8) Hypothyroidism Current Visit: Yes Status: Acute Assessment and Plan: The patient has a history of hyperthyroidism taking levothyroxine 125. -TSH elevated 16.8 -she reports she has been compliant with medication. -Will continue home levothyroxine dose however instructed her to follow up with her primary care provider for further titration of medication. (9) Anemia Current Visit: Yes Status: Acute Assessment and Plan: Decrease in hemoglobin from admission. Hemoglobin 11.7 at admission. -May be dilutional with IV fluids -Hemoglobin 9.8 (9.6 this morning) improved -no obvious active bleeding. Patient denies blood in stool. -Patient does have history of rectal cancer for which she is in remission after undergoing chemotherapy, radiation, resection. Plan -will recheck hemoglobin tomorrow. If stable will dc to 1A. -continue monitor for bleeding DVT Prophylaxis: SCD - Time Spent with Patient Total time spent is greater than 50% in coordination of care (as documented) at patient's floor/unit and/or counseling patient: Internal Medicine: Result - Labs CBC & Chem 7: 03/16/19 12:08 03/16/19 01:45 Labs: Short CBC 03/15/19 03/16/19 Range/Units 12:50 01:45 WBC 9.7 8.4 (4.3-11.1) K/mcL Hgb 11.7 9.6 L D (11.5-15.4) g/dL Hct 36.2 30.8 L (35.3-44.9) % Plt Count 226 168 (140-400) K/mcL Neutrophils # 7.8 6.6 (1.6-8.9) K/mcL BMP 03/15/19 03/16/19 12:50 01:45 Sodium 139 139 Potassium 3.5 3.8 Chloride 104 107 Carbon Dioxide 24 27 BUN 11 11 Creatinine 1.06 1.01 Glucose 126 H 104 Calcium 10.0 8.7 Liver Function 03/16/19 Range/Units 01:45 Total Bilirubin 0.4 (0.3-1.0) mg/dL AST 13 (13-39) Units/L ALT 14 (7-52) Units/L Alkaline Phosphatase 92 (34-104) Units/L Albumin 3.8 (3.5-5.7) g/dL Urine 03/15/19 03/16/19 Range/Units 13:09 01:20 Urine Color Yellow Yellow (Yellow) Urine Clarity Clear Cloudy A (Clear) Urine pH 5.0 5.5 (5.0-8.0) pH Units Ur Specific [place] 1.027 H 1.026 H (1.010-1.025) Urine Protein 100 H Trace (Neg-Trace) mg/dL Urine Glucose (UA) Normal Normal (Normal) mg/dL - ABG Interpretation ABG results: PT/INR, D-dimer PT 11.6 Seconds (9.4-12.1) 03/16/19 01:45 Consult Discharge Plan - Plan Referrals: NONE,PCP [Primary Care Provider] - <Naomy Fernandez - Last Filed: 03/16/19 15:45> Hospitalist Progress Note - Encounter Date of Encounter: 03/16/19 - Exam Vitals: Temp Pulse Resp BP Pulse Ox 98.3 F 82 16 146/87 96 03/16/19 15:33 03/16/19 15:33 03/16/19 15:33 03/16/19 15:33 03/16/19 15:33 - Assessment and Plan (1) Polysubstance abuse Current Visit: No Status: Chronic (2) Depression Current Visit: No Status: Chronic (3) Multiple sclerosis Current Visit: No Status: Chronic (4) Morbid obesity with BMI of 40.0-44.9, adult Current Visit: No Status: Chronic (5) Marijuana abuse Current Visit: No Status: Acute (6) Suicide attempt Current Visit: Yes Status: Acute (7) Overdose Current Visit: Yes Status: Acute (8) Hypothyroidism Current Visit: Yes Status: Acute (9) Anemia Current Visit: Yes Status: Acute - Time Spent with Patient Total time spent is greater than 50% in coordination of care (as documented) at patient's floor/unit and/or counseling patient: Internal Medicine: Result - Labs CBC & Chem 7: 03/16/19 12:08 03/16/19 01:45 Labs: Short CBC 03/16/19 03/16/19 03/16/19 Range/Units 01:45 08:23 12:08 WBC 8.4 9.2 (4.3-11.1) K/mcL Hgb 9.6 L D 9.9 L 9.8 L (11.5-15.4) g/dL Hct 30.8 L 30.9 L 30.9 L (35.3-44.9) % Plt Count 168 169 (140-400) K/mcL Neutrophils # 6.6 7.6 (1.6-8.9) K/mcL BMP 03/16/19 01:45 Sodium 139 Potassium 3.8 Chloride 107 Carbon Dioxide 27 BUN 11 Creatinine 1.01 Glucose 104 Calcium 8.7 Liver Function 03/16/19 Range/Units 01:45 Total Bilirubin 0.4 (0.3-1.0) mg/dL AST 13 (13-39) Units/L ALT 14 (7-52) Units/L Alkaline Phosphatase 92 (34-104) Units/L Albumin 3.8 (3.5-5.7) g/dL Urine 03/16/19 Range/Units 01:20 Urine Color Yellow (Yellow) Urine Clarity Cloudy A (Clear) Urine pH 5.5 (5.0-8.0) pH Units Ur Specific [place] 1.026 H (1.010-1.025) Urine Protein Trace (Neg-Trace) mg/dL Urine Glucose (UA) Normal (Normal) mg/dL - ABG Interpretation ABG results: PT/INR, D-dimer PT 11.6 Seconds (9.4-12.1) 03/16/19 01:45 - Attending Attestation I examined this patient and my medical decision-making was reviewed with the Resident Physician Dr Hernandez. I agree with the documented findings, disposition and treatment plan as described except to the extent set forth below. Ms Copeland is observed for overdose in suicide attempt awake,sitter at bedside. + nausea but no emesis tolday. ate breakfast and tolerated without pain or emesis after. no cp, pressure, palpitations or sob. denies any hemoptysis, gingival or nose bleeding, melena or hematochezia, no hematuria. no presyncope, sob or fatigue gen- alert, awake,appears stated age cv- reg rate and rhythm, normal s1,s2, no murmurs appreciated lungs- ctabl abd- soft, non tender, non distended, + bs neuro- AAOx3 Overdose- cont tele, no events noted, ekgs unremarkable, tolerating intake suicide attempt by above- will go to when med cleared, likely in am acute anemia without evidence of bleeding or hemodynamic instability- stable on repeat checks today, no blood on UA, no BUN elevation to suggest GIB, will follow in AM and if remains stable will be medically ready to transfer to , at that time she would follow up with PCP upon dc for repeat testing and further work up as needed, she will notify staff of any bleeding, no nsaids <Leti Hernandez - Last Filed: 03/16/19 14:51> (2) Overdose Qualifiers: Qualified Code(s): T50.901A - Poisoning by unspecified drugs, medicaments and biological substances, accidental (unintentional), initial encounter (4) Depression Qualifiers: Depression Type: major depressive disorder Major depression recurrence: recu rrent Active/Remission status: in remission of unspecified degree Qualified Code(s): F33.40 - Major depressive disorder, recurrent, in remission, un specified <Naomy Fernandez - Last Filed: 03/16/19 15:45> (2) Depression Qualifiers: Depression Type: major depressive disorder Major depression recurrence: recurrent Active/Remission status: in remission of unspecified degree Qualified Code(s): F33.40 - Major depressive disorder, recurrent, in remission, unspecified (7) Overdose Qualifiers: Qualified Code(s): T50.901A - Poisoning by unspecified drugs, medicaments and biological substances, accidental (unintentional), initial encounter
--- NOTE | 2019-03-16 08:42 | Consult Note ---
Date of Encounter: 03/16/19 History of Present Illness Requesting Physician: Naomy Fernandez History of present illness: Ms. Copeland is a 58 year old female with a past medical history including COPD, hypertension, hyperlipidemia, congestive heart failure, anxiety and depression, presenting with suicide attempt and overdose. The patient states her significant other left the home. She was very upset about this. She took 2 handfuls of her medications. She states she took about 15 100 mg Zoloft and 5 150 mg Wellbutrin. This is an approximation. She states immediately after, she has been feeling nauseous and has had several episodes of nonbilious nonbloody emesis. She denies chest pain, shortness of breath, feeling tired, lightheadedness or dizziness. She states she has chronic intermittent headaches and abdominal pain but no new headaches or abdominal pain. She states she has had suicidal ideation in the past but not attempt. She also endorses taking 3 200 mg ibuprofen for her headache but no other medications. CC: Naomy Fernandez Past Med Surg Social Fam HX - Past Medical History Medical history: asthma, cancer, CHF, COPD, dementia, GERD, hyperlipidemia, hypertension, thyroid disease - Past Surgical History Surgical History: appendectomy, breast surgery, knee replacement, other - Social History Smoking Status: Current every day smoker Smokeless Tobacco Status: No Alcohol use: none Drug use: marijuana - Family History Brother Family Member Ethnicity: Non- Living Status: Still Living Sister Family Member Ethnicity: Non- Living Status: Still Living Father Family Member Ethnicity: Non- Living Status: Age at : 83 Cause of : COPD Hx Family Cardiac Disorders: Yes (CAD) Hx Family Respiratory Disorders: Yes (COPD) Hx Family Cancer: No Hx Family GI Disorders: No Hx Family Endocrine Disorder: No Hx Family Neuromuscular Disorders: No Hx Family Neurologic Disorders: No Hx Family HEENT Disorders: No Hx Family Autoimmune Disorders: No Mother Family Member Ethnicity: Non- Living Status: Age at : 74 Cause of : alzheimers Hx Family Cardiac Disorders: No Hx Family Respiratory Disorders: No Hx Family Cancer: Yes (skin) Hx Family GI Disorders: No Hx Family Endocrine Disorder: No Hx Family Neuromuscular Disorders: No Hx Family Neurologic Disorders: No Hx Family HEENT Disorders: No Hx Family Autoimmune Disorders: No Medications & Allergies Famotidine [Heartburn Prevention] 20 mg PO DAILY 09/19/17 [History] Levothyroxine [Synthroid] 125 mcg PO DAILY@0630 #30 tablet 09/03/18 [Rx] Albuterol Sulfate [Ventolin Hfa] 2 puff IH Q4H PRN 09/26/18 [History] Atorvastatin [Lipitor] 40 mg PO HS 09/26/18 [History] Fluticasone/Salmeterol [Advair Hfa 115-21 Mcg Inhaler] 2 puff IH BID 10/16/18 [History] Budesonide/Formoterol 160/4.5 [Symbicort 160/4.5] 2 puff IH BIDR 11/28/18 [History] Lisinopril/Hydrochlorothiazide [Zestoretic 10-12.5 mg Tablet] 1 each PO DAILY 11/28/18 [History] Ondansetron ODT [Zofran ODT] 4 mg SL Q8HR PRN #12 tab.rapdis 11/28/18 [Rx] Pantoprazole Sodium [Protonix] 40 mg PO DAILY 11/28/18 [History] Allergy/AdvReac Type Severity Reaction Status Date / Time vancomycin Allergy Itching Verified 02/28/19 02:04 Psychiatry Exam - Constitutional Vitals: Temp Pulse Resp BP Pulse Ox 98.2 F 91 16 138/81 93 03/16/19 06:30 03/16/19 06:30 03/16/19 08:01 03/16/19 06:30 03/16/19 08:01 General appearance: age & developmentally appropriate Results - Drug Levels and Toxicology Drug Levels and Toxicology: Drug Levels and Toxicity 03/15/19 03/15/19 12:50 13:15 Urine Opiates Screen Negative Acetaminophen < 10 L Ur Barbiturates Screen Negative Ur Phencyclidine Scrn Negative Ur Amphetamines Screen Negative U Benzodiazepines Scrn Negative Urine Cocaine Screen Negative U Marijuana (THC) Screen Positive H Ethyl Alcohol < 10 - Labs Labs: Laboratory Last Values WBC 8.4 K/mcL (4.3-11.1) 03/16/19 01:45 RBC 3.44 M/mcL (3.82-4.97) L 03/16/19 01:45 Hgb 9.6 g/dL (11.5-15.4) L D 03/16/19 01:45 Hct 30.8 % (35.3-44.9) L 03/16/19 01:45 MCV 89.5 fL (83.0-100.0) 03/16/19 01:45 MCH 27.9 pg (28.0-33.3) L 03/16/19 01:45 MCHC 31.2 g/dL (31.6-35.5) L 03/16/19 01:45 RDW 14.5 % (11.5-14.5) 03/16/19 01:45 Plt Count 168 K/mcL (140-400) 03/16/19 01:45 MPV 10.8 fL (9.4-12.4) 03/16/19 01:45 Immature Gran % 0.5 % (0-4) 03/16/19 01:45 Seg Neutrophils % 77.8 % 03/16/19 01:45 Lymphocytes % 13.2 % 03/16/19 01:45 Monocytes % 6.9 % 03/16/19 01:45 Eosinophils % 1.2 % 03/16/19 01:45 Basophils % 0.4 % 03/16/19 01:45 Neutrophils # 6.6 K/mcL (1.6-8.9) 03/16/19 01:45 Lymphocytes # 1.1 K/mcL (0.6-4.6) 03/16/19 01:45 Monocytes # 0.6 K/mcL (0.0-1.3) 03/16/19 01:45 Eosinophils # 0.1 K/mcL (0.0-0.6) 03/16/19 01:45 Basophils # 0.0 K/mcL (0.0-0.2) 03/16/19 01:45 PT 11.6 Seconds (9.4-12.1) 03/16/19 01:45 INR 1.0 03/16/19 01:45 APTT 29.3 Seconds (26.0-36.0) 03/16/19 01:45 Sodium 139 mEq/L (136-145) 03/16/19 01:45 Potassium 3.8 mEq/L (3.5-5.1) 03/16/19 01:45 Chloride 107 mEq/L (98-107) 03/16/19 01:45 Carbon Dioxide 27 mEq/L (23-29) 03/16/19 01:45 BUN 11 mg/dL (6-20) 03/16/19 01:45 Creatinine 1.01 mg/dL (0.60-1.20) 03/16/19 01:45 Est GFR ( Amer) > 60 (> 60) 03/16/19 01:45 Est GFR (Non-Af Amer) 56 (> 60) L 03/16/19 01:45 BUN/Creatinine Ratio 11 (6-26) 03/16/19 01:45 Glucose 104 mg/dL (70-105) 03/16/19 01:45 Calculated Osmolality 288 (280-300) 03/16/19 01:45 Calcium 8.7 mg/dL (8.6-10.3) 03/16/19 01:45 Phosphorus 4.5 mg/dL (2.7-4.5) 03/16/19 01:45 Magnesium 2.1 mg/dL (1.6-2.6) 03/16/19 01:45 Total Bilirubin 0.4 mg/dL (0.3-1.0) 03/16/19 01:45 AST 13 Units/L (13-39) 03/16/19 01:45 ALT 14 Units/L (7-52) 03/16/19 01:45 Alkaline Phosphatase 92 Units/L (34-104) 03/16/19 01:45 Serum Total Protein 6.2 g/dL (6.4-8.9) L 03/16/19 01:45 Albumin 3.8 g/dL (3.5-5.7) 03/16/19 01:45 Globulin 2.4 g/dL (2.4-3.5) 03/16/19 01:45 Albumin/Globulin Ratio 1.6 (1.1-2.2) 03/16/19 01:45 Triglycerides 125 mg/dL (< 150) 03/16/19 01:45 Cholesterol 208 mg/dL (< 200) H 03/16/19 01:45 LDL Cholesterol, Calc 140 mg/dL (0-99) H 03/16/19 01:45 VLDL Cholesterol, Calc 25 mg/dL (< 31) 03/16/19 01:45 HDL Cholesterol 43 mg/dL (40-59) 03/16/19 01:45 Cholesterol/HDL Ratio 4.8 (0-4.9) 03/16/19 01:45 TSH 16.860 mcIU/mL (0.340-5.600) H 03/15/19 12:50 Ur Specimen Adequacy 03/15/19 13:09 Urine Color Yellow (Yellow) 03/16/19 01:20 Urine Clarity Cloudy (Clear) A 03/16/19 01:20 Urine pH 5.5 pH Units (5.0-8.0) 03/16/19 01:20 Ur Specific [place] 1.026 (1.010-1.025) H 03/16/19 01:20 Urine Protein Trace mg/dL (Neg-Trace) 03/16/19 01:20 Urine Glucose (UA) Normal mg/dL (Normal) 03/16/19 01:20 Urine Ketones Negative mg/dL (Negative) 03/16/19 01:20 Urine Blood Negative (Negative) 03/16/19 01:20 Urine Nitrite Negative (Negative) 03/16/19 01:20 Urine Bilirubin Negative (Negative) 03/16/19 01:20 Urine Urobilinogen Normal mg/dL (Normal) 03/16/19 01:20 Ur Leukocyte Esterase Trace (Negative) H 03/16/19 01:20 Urine Microscopic RBC 0-3 per hpf (0-3) 03/16/19 01:20 Urine Microscopic WBC 15-30 per hpf (0-3) H 03/16/19 01:20 Ur Squamous Epith Cells Many per lpf (None-Few) H 03/16/19 01:20 Calcium Oxalate Crystal Present 03/15/19 13:09 Amorphous Sediment Present (Few) 03/15/19 13:09 Urine Bacteria Few per hpf (None-Few) 03/16/19 01:20 Hyaline Casts Moderate per lpf (None-Few) H 03/16/19 01:20 Urine Mucus Few (Few) 03/16/19 01:20 Urine Yeast Moderate per hpf (None Seen) H 03/16/19 01:20 Ur Oval Fat Bodies Present (Not Present) A 03/16/19 01:20 Salicylates < 2.5 mg/dL (15.0-30.0) L 03/15/19 12:50 Urine Opiates Screen Negative ng/mL (Dfoeri=275) 03/15/19 13:15 Ur Buprenorphine Scrn Negative ng/mL (Cutoff=5) 03/15/19 13:15 Acetaminophen < 10 mcg/mL (10-20) L 03/15/19 12:50 Ur Barbiturates Screen Negative ng/mL (Hzvepi=631) 03/15/19 13:15 Ur Phencyclidine Scrn Negative ng/mL (Cutoff=25) 03/15/19 13:15 Ur Amphetamines Screen Negative ng/mL (Ziyqut=2984) 03/15/19 13:15 U Benzodiazepines Scrn Negative ng/mL (Evzhoy=475) 03/15/19 13:15 Urine Cocaine Screen Negative ng/mL (Cutoff= 300) 03/15/19 13:15 U Marijuana (THC) Screen Positive ng/mL (Cutoff = 50) H 03/15/19 13:15 Ur Drug Screen Interp See Below 03/15/19 13:15 Ethyl Alcohol < 10 mg/dL (Less than 10) 03/15/19 12:50 Consult Discharge Plan - Plan Referrals: NONE,PCP [Primary Care Provider] -
[2019-03-16] MEDS ORDERED: NON-FORMULARY MEDICATION 1 EACH EACH (Fluticasone/Salmeterol [Advair Hfa 115-21 Mcg Inhale IH SCH (09:00)
[2019-03-16] MEDS ORDERED: Nicotine 7 MG PATCH.TD24 TD SCH (09:00)
[2019-03-16 09:07] LABS: Hematocrit 30.9 % (35.3-44.9); Hemoglobin 9.9 g/dL (11.5-15.4)
--- NOTE | 2019-03-16 10:13 | Consult Note ---
Date of Encounter: 03/16/19 Time of Encounter: 09:25 Assessment & Recommendation (1) Depression Current visit: Yes Status: Acute Assessment & Recommendation: Patient is status post suicide attempt and had another suicide attempt within the last few months by overdose. At this point recommend hospitalization on [address] once medically stable. Continue to hold Wellbutrin and Zoloft given overdose on them. Continue sitter until she can be moved. Qualifiers: Depression Type: major depressive disorder Major depression recurrence: recurrent Active/Remission status: currently active Major depression episode severity: severe Psychotic features: without psychotic features Qualified Code(s): F33.2 - Major depressive disorder, recurrent severe without psychotic features History of Present Illness Patient: known to practice within the last 3 years Requesting Physician: Naomy Fernandez Reason for consult: overdose History of present illness: Ms. Copeland is a 58 year old female who presented to the emergency room status post intentional overdose on 15 Zoloft 100 mg tablets and 5 bupropion 150 mg tablets. She reports she was trying to kill herself because her boyfriend left her. They have been fighting for a few months but he finally went to his nephew's house and changed her cell phone to not allow her to make outgoing calls. They have been together for 7 years and mother relationship has been tumultuous she is very distraught over him leaving. She has had mood, decreased interest, feelings of guilt and worthlessness, low energy, decreased need for sleep and hopelessness. She denies prior manic symptoms. She denies psychotic symptoms. She reports that she still wishes she were not alive. CC: Naomy Fernandez Past Med Surg Social Fam HX - Past Medical History Medical history: asthma, cancer, CHF, COPD, dementia, GERD, hyperlipidemia, hypertension, thyroid disease - Past Psychiatric History Psychiatric history: Reports: depression, prior suicide attempt, previous psychiatric hospitalization Past psychiatric history details: The patient is well-known for service for having had overdose attempts in the past and primarily when she had relationship difficulties. She has been hospital is in the past at [address] but this was many years ago. She is linked with [facility]. She was getting Zoloft and Wellbutrin but she stopped his medications about 6 months ago. She could not tell me why. Family psychiatric history: Yes Family Psychiatric History Details: Depression runs in the family. No substance use issues. Family History of Suicide: None - Past Surgical History Surgical History: appendectomy, breast surgery, knee replacement, other - Social History Smoking Status: Current every day smoker Smokeless Tobacco Status: No Alcohol use: none Drug use: marijuana Occupational status: disabled Current living situation: Home Activity Level: Independent ambulation Recent Out of Country Travel Within the Last 8 Weeks: No Exposure or Possible Exposure to Illness During Travel: No Additional social history: Patient was living with her boyfriend of 7 years however he has since left her. Her only social support is her sister who has not been particularly supportive of her recently. She gets disability benefits. - Family History Brother Family Member Ethnicity: Non- Living Status: Still Living Sister Family Member Ethnicity: Non- Living Status: Still Living Father Family Member Ethnicity: Non- Living Status: Age at : 83 Cause of : COPD Hx Family Cardiac Disorders: Yes (CAD) Hx Family Respiratory Disorders: Yes (COPD) Hx Family Cancer: No Hx Family GI Disorders: No Hx Family Endocrine Disorder: No Hx Family Neuromuscular Disorders: No Hx Family Neurologic Disorders: No Hx Family HEENT Disorders: No Hx Family Autoimmune Disorders: No Mother Family Member Ethnicity: Non- Living Status: Age at : 74 Cause of : alzheimers Hx Family Cardiac Disorders: No Hx Family Respiratory Disorders: No Hx Family Cancer: Yes (skin) Hx Family GI Disorders: No Hx Family Endocrine Disorder: No Hx Family Neuromuscular Disorders: No Hx Family Neurologic Disorders: No Hx Family HEENT Disorders: No Hx Family Autoimmune Disorders: No Medications & Allergies Famotidine [Heartburn Prevention] 20 mg PO DAILY 09/19/17 [History] Levothyroxine [Synthroid] 125 mcg PO DAILY@0630 #30 tablet 09/03/18 [Rx] Albuterol Sulfate [Ventolin Hfa] 2 puff IH Q4H PRN 09/26/18 [History] Atorvastatin [Lipitor] 40 mg PO HS 09/26/18 [History] Fluticasone/Salmeterol [Advair Hfa 115-21 Mcg Inhaler] 2 puff IH BID 10/16/18 [History] Budesonide/Formoterol 160/4.5 [Symbicort 160/4.5] 2 puff IH BIDR 11/28/18 [History] Lisinopril/Hydrochlorothiazide [Zestoretic 10-12.5 mg Tablet] 1 each PO DAILY 11/28/18 [History] Ondansetron ODT [Zofran ODT] 4 mg SL Q8HR PRN #12 tab.rapdis 11/28/18 [Rx] Pantoprazole Sodium [Protonix] 40 mg PO DAILY 11/28/18 [History] Allergy/AdvReac Type Severity Reaction Status Date / Time vancomycin Allergy Itching Verified 02/28/19 02:04 Review of Systems Constitutional: Reports: weakness Eyes: Denies: eye pain Ears, Nose, Throat: Denies: ear pain Cardiovascular: Denies: chest pain Respiratory: Denies: cough Gastrointestinal: Reports: nausea Genitourinary female: Denies: urgency Musculoskeletal: Reports: joint pain Integumentary: Denies: rash Neurological: Reports: weakness Psychiatric: Reports: depression, abnormal sleep pattern, suicidal ideation, change in appetite, anhedonia, hopelessness. Denies: homicidal ideation, auditory hallucinations Endocrine: Reports: fatigue Hematologic/Lymphatic: Denies: easy bleeding Allergic/Immunologic: Denies: facial swelling Psychiatry Exam - Constitutional Vitals: Temp Pulse Resp BP Pulse Ox 98.2 F 91 16 138/81 93 03/16/19 06:30 03/16/19 06:30 03/16/19 08:01 03/16/19 06:30 03/16/19 08:01 General appearance: age & developmentally appropriate, disheveled, obese - Musculoskeletal Gait: other (In bed) Station: stooped Strength & Tone: mild weakness - Psychiatric Patient Orientation: Yes Person, Yes Time, Yes Place, Yes Circumstance Level of alertness: Alert Behavior: withdrawn Psychomotor activity: Slowed Eye Contact: Minimal Contact Mood Description: Depressed Patient description of mood: Sad Affect description: dysphoric Speech Volume: Soft/Quiet Speech pattern: slowed Language & Vocabulary: consistent with education Thought Process: Intact Thought Content: Yes Suicidal ideation, No Homicidal ideation Perceptual Disturbances: No Auditory hallucinations, No Visual hallucinations Attention Span Ability: Capable of Focused Attention Memory Description: Grossly Intact Patient Reliability: Reliable Historian Fund of knowledge: Yes abstraction ability, Yes aware of current events Intelligence Estimate: Average Judgment: Limited Insight: Minimal Results - Drug Levels and Toxicology Drug Levels and Toxicology: Drug Levels and Toxicity 03/15/19 03/15/19 12:50 13:15 Urine Opiates Screen Negative Acetaminophen < 10 L Ur Barbiturates Screen Negative Ur Phencyclidine Scrn Negative Ur Amphetamines Screen Negative U Benzodiazepines Scrn Negative Urine Cocaine Screen Negative U Marijuana (THC) Screen Positive H Ethyl Alcohol < 10 - Labs Labs: Laboratory Last Values WBC 8.4 K/mcL (4.3-11.1) 03/16/19 01:45 RBC 3.44 M/mcL (3.82-4.97) L 03/16/19 01:45 Hgb 9.9 g/dL (11.5-15.4) L 03/16/19 08:23 Hct 30.9 % (35.3-44.9) L 03/16/19 08:23 MCV 89.5 fL (83.0-100.0) 03/16/19 01:45 MCH 27.9 pg (28.0-33.3) L 03/16/19 01:45 MCHC 31.2 g/dL (31.6-35.5) L 03/16/19 01:45 RDW 14.5 % (11.5-14.5) 03/16/19 01:45 Plt Count 168 K/mcL (140-400) 03/16/19 01:45 MPV 10.8 fL (9.4-12.4) 03/16/19 01:45 Immature Gran % 0.5 % (0-4) 03/16/19 01:45 Seg Neutrophils % 77.8 % 03/16/19 01:45 Lymphocytes % 13.2 % 03/16/19 01:45 Monocytes % 6.9 % 03/16/19 01:45 Eosinophils % 1.2 % 03/16/19 01:45 Basophils % 0.4 % 03/16/19 01:45 Neutrophils # 6.6 K/mcL (1.6-8.9) 03/16/19 01:45 Lymphocytes # 1.1 K/mcL (0.6-4.6) 03/16/19 01:45 Monocytes # 0.6 K/mcL (0.0-1.3) 03/16/19 01:45 Eosinophils # 0.1 K/mcL (0.0-0.6) 03/16/19 01:45 Basophils # 0.0 K/mcL (0.0-0.2) 03/16/19 01:45 PT 11.6 Seconds (9.4-12.1) 03/16/19 01:45 INR 1.0 03/16/19 01:45 APTT 29.3 Seconds (26.0-36.0) 03/16/19 01:45 Sodium 139 mEq/L (136-145) 03/16/19 01:45 Potassium 3.8 mEq/L (3.5-5.1) 03/16/19 01:45 Chloride 107 mEq/L (98-107) 03/16/19 01:45 Carbon Dioxide 27 mEq/L (23-29) 03/16/19 01:45 BUN 11 mg/dL (6-20) 03/16/19 01:45 Creatinine 1.01 mg/dL (0.60-1.20) 03/16/19 01:45 Est GFR ( Amer) > 60 (> 60) 03/16/19 01:45 Est GFR (Non-Af Amer) 56 (> 60) L 03/16/19 01:45 BUN/Creatinine Ratio 11 (6-26) 03/16/19 01:45 Glucose 104 mg/dL (70-105) 03/16/19 01:45 Calculated Osmolality 288 (280-300) 03/16/19 01:45 Calcium 8.7 mg/dL (8.6-10.3) 03/16/19 01:45 Phosphorus 4.5 mg/dL (2.7-4.5) 03/16/19 01:45 Magnesium 2.1 mg/dL (1.6-2.6) 03/16/19 01:45 Total Bilirubin 0.4 mg/dL (0.3-1.0) 03/16/19 01:45 AST 13 Units/L (13-39) 03/16/19 01:45 ALT 14 Units/L (7-52) 03/16/19 01:45 Alkaline Phosphatase 92 Units/L (34-104) 03/16/19 01:45 Serum Total Protein 6.2 g/dL (6.4-8.9) L 03/16/19 01:45 Albumin 3.8 g/dL (3.5-5.7) 03/16/19 01:45 Globulin 2.4 g/dL (2.4-3.5) 03/16/19 01:45 Albumin/Globulin Ratio 1.6 (1.1-2.2) 03/16/19 01:45 Triglycerides 125 mg/dL (< 150) 03/16/19 01:45 Cholesterol 208 mg/dL (< 200) H 03/16/19 01:45 LDL Cholesterol, Calc 140 mg/dL (0-99) H 03/16/19 01:45 VLDL Cholesterol, Calc 25 mg/dL (< 31) 03/16/19 01:45 HDL Cholesterol 43 mg/dL (40-59) 03/16/19 01:45 Cholesterol/HDL Ratio 4.8 (0-4.9) 03/16/19 01:45 TSH 16.860 mcIU/mL (0.340-5.600) H 03/15/19 12:50 Ur Specimen Adequacy 03/15/19 13:09 Urine Color Yellow (Yellow) 03/16/19 01:20 Urine Clarity Cloudy (Clear) A 03/16/19 01:20 Urine pH 5.5 pH Units (5.0-8.0) 03/16/19 01:20 Ur Specific [place] 1.026 (1.010-1.025) H 03/16/19 01:20 Urine Protein Trace mg/dL (Neg-Trace) 03/16/19 01:20 Urine Glucose (UA) Normal mg/dL (Normal) 03/16/19 01:20 Urine Ketones Negative mg/dL (Negative) 03/16/19 01:20 Urine Blood Negative (Negative) 03/16/19 01:20 Urine Nitrite Negative (Negative) 03/16/19 01:20 Urine Bilirubin Negative (Negative) 03/16/19 01:20 Urine Urobilinogen Normal mg/dL (Normal) 03/16/19 01:20 Ur Leukocyte Esterase Trace (Negative) H 03/16/19 01:20 Urine Microscopic RBC 0-3 per hpf (0-3) 03/16/19 01:20 Urine Microscopic WBC 15-30 per hpf (0-3) H 03/16/19 01:20 Ur Squamous Epith Cells Many per lpf (None-Few) H 03/16/19 01:20 Calcium Oxalate Crystal Present 03/15/19 13:09 Amorphous Sediment Present (Few) 03/15/19 13:09 Urine Bacteria Few per hpf (None-Few) 03/16/19 01:20 Hyaline Casts Moderate per lpf (None-Few) H 03/16/19 01:20 Urine Mucus Few (Few) 03/16/19 01:20 Urine Yeast Moderate per hpf (None Seen) H 03/16/19 01:20 Ur Oval Fat Bodies Present (Not Present) A 03/16/19 01:20 Salicylates < 2.5 mg/dL (15.0-30.0) L 03/15/19 12:50 Urine Opiates Screen Negative ng/mL (Rhsbdi=669) 03/15/19 13:15 Ur Buprenorphine Scrn Negative ng/mL (Cutoff=5) 03/15/19 13:15 Acetaminophen < 10 mcg/mL (10-20) L 03/15/19 12:50 Ur Barbiturates Screen Negative ng/mL (Azpula=748) 03/15/19 13:15 Ur Phencyclidine Scrn Negative ng/mL (Cutoff=25) 03/15/19 13:15 Ur Amphetamines Screen Negative ng/mL (Wbmajm=1810) 03/15/19 13:15 U Benzodiazepines Scrn Negative ng/mL (Oacpio=287) 03/15/19 13:15 Urine Cocaine Screen Negative ng/mL (Cutoff= 300) 03/15/19 13:15 U Marijuana (THC) Screen Positive ng/mL (Cutoff = 50) H 03/15/19 13:15 Ur Drug Screen Interp See Below 03/15/19 13:15 Ethyl Alcohol < 10 mg/dL (Less than 10) 03/15/19 12:50 Consult Discharge Plan - Plan Referrals: NONE,PCP [Primary Care Provider] -
[2019-03-16 13:21] LABS: Basophils % 0.3 %; Eosinophils # 0.1 K/mcL (0.0-0.6); Eosinophils % 0.9 %; Hematocrit 30.9 % (35.3-44.9); Hemoglobin 9.8 g/dL (11.5-15.4); Immature Granulocytes % 0.4 % (0-4); Lymphocytes % 10.3 %; Mean Corpuscular HGB Conc 31.7 g/dL (31.6-35.5); Mean Corpuscular Hemoglobin 28.5 pg (28.0-33.3); Mean Corpuscular Volume 89.8 fL (83.0-100.0); Mean Platelet Volume 11.7 fL (9.4-12.4); Monocytes # 0.5 K/mcL (0.0-1.3); Monocytes % 5.7 %; Neutrophils # 7.6 K/mcL (1.6-8.9); Platelet Count 169 K/mcL (140-400); Red Blood Count 3.44 M/mcL (3.82-4.97); Red Cell Distribution Width 14.7 % (11.5-14.5); Segmented Neutrophils % 82.4 %; White Blood Count 9.2 K/mcL (4.3-11.1)
[2019-03-17 04:28] LABS: Hematocrit 29.7 % (35.3-44.9); Hemoglobin 9.4 g/dL (11.5-15.4); Mean Corpuscular HGB Conc 31.6 g/dL (31.6-35.5); Mean Corpuscular Hemoglobin 28.7 pg (28.0-33.3); Mean Corpuscular Volume 90.8 fL (83.0-100.0); Mean Platelet Volume 10.9 fL (9.4-12.4); Platelet Count 158 K/mcL (140-400); Red Blood Count 3.27 M/mcL (3.82-4.97); Red Cell Distribution Width 14.6 % (11.5-14.5); White Blood Count 7.9 K/mcL (4.3-11.1)
[2019-03-17] MEDS: Budesonide/Formoterol 160/4.5 1 PUFF INH IH SCH (07:42)
[2019-03-17 07:44] VITALS: BP 168/94
[2019-03-17] MEDS: Famotidine 20 MG TABLET PO SCH (08:02)
[2019-03-17] MEDS: Ondansetron ODT 4 MG TAB.RAPDIS SL PRN (08:17)
--- NOTE | 2019-03-17 09:29 | Discharge Summary ---
<Leti Hernandez - Last Filed: 03/17/19 09:33> - NOTES TO OUTPATIENT PROVIDER Notes to Outpatient Provider: Admitted for suicide attempts by overdose taking 20 Zoloft and 5 Wellbutrin. Discharged to inpatient psychiatric unit 1A at [facility]. Found to have chronic anemia of hemoglobin stable at 9.4 during admission. TSH 16.8. Will need further workup outpatient. Date of Encounter: 03/17/19 Time of Encounter: 08:50 - Discharge Diagnosis (1) Suicide attempt Priority: Primary Status: Acute (2) Overdose Priority: Secondary Status: Acute Qualifiers: Qualified Code(s): T50.901A - Poisoning by unspecified drugs, medicaments and biological substances, accidental (unintentional), initial encounter (3) Polysubstance abuse Priority: Secondary Status: Chronic (4) Depression Priority: Secondary Status: Chronic Qualifiers: Depression Type: major depressive disorder Major depression recurrence: recurrent Active/Remission status: in remission of unspecified degree Qualified Code(s): F33.40 - Major depressive disorder, recurrent, in remission, unspecified (5) Multiple sclerosis Priority: Secondary Status: Chronic (6) Morbid obesity with BMI of 40.0-44.9, adult Priority: Secondary Status: Chronic (7) Marijuana abuse Priority: Secondary Status: Acute (8) Hypothyroidism Priority: Secondary Status: Acute Qualifiers: Hypothyroidism type: unspecified Qualified Code(s): E03.9 - Hypothyroidism, unspecified (9) Anemia Priority: Secondary Status: Acute Qualifiers: Anemia type: unspecified type Qualified Code(s): D64.9 - Anemia, unspecified Hospital course: Ms. Copeland is a 58 year old female with past medical history of asthma, rectal cancer, COPD, depression, hypothyroidism, MS presented to [facility] after an attempted suicide by overdose. She took 20 Zoloft and 5 Wellbutrin. Poison control was called by ER staff in the recommended observation for 24 hours. Psychiatry was consulted and recommended inpatient psychiatric hospitalization once medically cleared. EKG was normal. TSH level elevated 16.8. Urine drug screen was positive for marijuana. She was noted to have an anemia however during hospitalization hemoglobin remain stable around 9.6. During hospitalization the patient was not symptomatic. She denied chest pain, shortness of breath, palpitations, tremor, weakness, confusion. She was discharged to the inpatient psychiatric unit for further care. She is to follow up with her primary care provider on her anemia and elevated TSH. Discharge discussed with: patient Time spent discussing smoking cessation with patient: more than 10 minutes - Time Spent with Patient Total time spent providing and/or coordinating discharge services: - Discharge Medications Prescriptions: Continued Famotidine [Heartburn Prevention] 20 mg PO DAILY Levothyroxine [Synthroid] 125 mcg PO DAILY@0630 #30 tablet Albuterol Sulfate [Ventolin Hfa] 2 puff IH Q4H PRN PRN Reason: sob Atorvastatin [Lipitor] 40 mg PO HS Fluticasone/Salmeterol [Advair Hfa 115-21 Mcg Inhaler] 2 puff IH BID Ondansetron ODT [Zofran ODT] 4 mg SL Q8HR PRN #12 tab.rapdis PRN Reason: Nausea Budesonide/Formoterol 160/4.5 [Symbicort 160/4.5] 2 puff IH BIDR Lisinopril/Hydrochlorothiazide [Zestoretic 10-12.5 mg Tablet] 1 each PO DAILY Pantoprazole Sodium [Protonix] 40 mg PO DAILY Home Medications: Famotidine [Heartburn Prevention] 20 mg PO DAILY 09/19/17 [History] Levothyroxine [Synthroid] 125 mcg PO DAILY@0630 #30 tablet 09/03/18 [Rx] Albuterol Sulfate [Ventolin Hfa] 2 puff IH Q4H PRN 09/26/18 [History] Atorvastatin [Lipitor] 40 mg PO HS 09/26/18 [History] Fluticasone/Salmeterol [Advair Hfa 115-21 Mcg Inhaler] 2 puff IH BID 10/16/18 [History] Budesonide/Formoterol 160/4.5 [Symbicort 160/4.5] 2 puff IH BIDR 11/28/18 [History] Lisinopril/Hydrochlorothiazide [Zestoretic 10-12.5 mg Tablet] 1 each PO DAILY 11/28/18 [History] Ondansetron ODT [Zofran ODT] 4 mg SL Q8HR PRN #12 tab.rapdis 11/28/18 [Rx] Pantoprazole Sodium [Protonix] 40 mg PO DAILY 11/28/18 [History] Allergies/Adverse Reactions: Allergy/AdvReac Type Severity Reaction Status Date / Time vancomycin Allergy Itching Verified 03/16/19 16:04 Date of admission: 03/15/19 14:41 Primary care physician: PCP NONE Consults: 03/15/19 16:52 Consult to Workers Compensation Examiner [CONS] Routine Reason for SW Consult: SI/OD 03/16/19 07:56 Consult to Psychiatry [CONS] Routine Consulting Provider: [facility] Reason consult: [place] slip on chart Other Other reason and/or additional details: suicide attempt by overdose [place] Slip initiated date and time: issued in the ED and informed that pschiatry was consulted in ED. I see no order on chart therefore order placed Discharging clinician: Naomy Fernandez Anticipated date of discharge: 03/17/19 - Constitutional Vitals: Temp Pulse Resp BP Pulse Ox 98.4 F 86 16 168/94 96 03/17/19 07:43 03/17/19 07:43 03/17/19 07:45 03/17/19 07:43 03/17/19 07:45 General appearance: Present: A&O X 3 Exam: Gen.: Vitals noted. No acute distress. AAOx3 HEENT: oropharynx clear, Normocephalic, atraumatic Cardiac: RRR, no murmur, +S1/S2 Pulmonary: CTA bilaterally, no wheezes, rales or rhonchi, equal chest expansion Abdomen: soft, nontender, Bowel sounds noted, no guarding Extremities: +BLE edema, nontender calf, no cyanosis or clubbing Neuro: A&Ox3, moves all extremities, no focal deficits Psych: Appropriate mood and behavior - Patient Status Disposition: Transfer Psychiatric Hosp Condition: Good Functional capacity at discharge: independent ambulation Overall status at discharge: patient is back to baseline - Discharge Instructions Follow Up With: NONE,PCP [Primary Care Provider] - Forms: ED Satisfaction Letter Additional Instructions: - Patient will need hemoglobin rechecked in 2 days to confirm stability. - Diet and Activity Activity: resume usual activities as tolerated Diet: regular diet <Naomy Fernandez - Last Filed: 03/17/19 12:19> Date of Encounter: 03/17/19 - Discharge Diagnosis (1) Polysubstance abuse Status: Chronic (2) Depression Status: Chronic Qualifiers: Depression Type: major depressive disorder Major depression recurrence: recurrent Active/Remission status: in remission of unspecified degree Qualified Code(s): F33.40 - Major depressive disorder, recurrent, in remission, unspecified (3) Multiple sclerosis Status: Chronic (4) Morbid obesity with BMI of 40.0-44.9, adult Status: Chronic (5) Marijuana abuse Status: Acute (6) Suicide attempt Status: Acute (7) Overdose Status: Acute Qualifiers: Qualified Code(s): T50.901A - Poisoning by unspecified drugs, medicaments and biological substances, accidental (unintentional), initial encounter (8) Hypothyroidism Status: Acute Qualifiers: Hypothyroidism type: unspecified Qualified Code(s): E03.9 - Hypothyroidism, unspecified (9) Anemia Status: Acute Qualifiers: Anemia type: unspecified type Qualified Code(s): D64.9 - Anemia, unspecified Hospital course: Ms. Copeland is a 58 year old female - Time Spent with Patient Total time spent providing and/or coordinating discharge services: Date of admission: 03/15/19 14:41 Primary care physician: PCP NONE Consults: 03/15/19 16:52 Consult to Workers Compensation Examiner [CONS] Routine Reason for SW Consult: SI/OD 03/16/19 07:56 Consult to Psychiatry [CONS] Routine Consulting Provider: [facility] Reason consult: [place] slip on chart Other Other reason and/or additional details: suicide attempt by overdose [place] Slip initiated date and time: issued in the ED and informed that pschiatry was consulted in ED. I see no order on chart therefore order placed - Constitutional Vitals: Temp Pulse Resp BP Pulse Ox 98.4 F 86 16 168/94 96 03/17/19 07:43 03/17/19 07:43 03/17/19 07:45 03/17/19 07:43 03/17/19 07:45 - Attending Attestation I examined this patient and my medical decision-making was reviewed with the Resident Physician Dr Hernandez. I agree with the documented findings, disposition and treatment plan as described except to the extent set forth below. Ms Copeland is observed for overdose in suicide attempt. She was found to have anemia which has remained stable and with concomitant hemodynamic stability. She has hx of hypothroidism and was instructed to fu with pcp for repat tsh in one month and further dose adjustments as needed. She is medically cleared for dc to 1A unit. awake,sitter at bedside. she is very nervous to go psych unit. she has no other ocmplaints. conts to deny any signs or sxs of bleeding. no palpitations, sob, dizziness or fatuge. no hematuria, melena or hematochezia. instructed to fu with pcp after psych discharge as will need hgb and tsh monitoring and she verbalized good understanding of plan. gen- alert, awake,appears stated age cv- reg rate and rhythm, normal s1,s2, no murmurs appreciated, no le edema lungs- ctabl, normal resp effort on room air abd- soft, non tender, non distended, + bs neuro- AAOx3 Overdose- has now completed 24 h monitoring as per poison control, does not require further tele monitoring suicide attempt by above- she is medically stable to go to 1a and unit contacted acute anemia without evidence of bleeding or hemodynamic instability- stable on repeat checks in last 24 hrs, fluctuating from 9.4-9.9. recommend check cbc in 2 days. If down trending please contact hospitalist for consultation for further work up. While she initially noted on admit she also overdosed on nsaid she later told our team this was not true and that while she takes nsaids regularly at home she did not take any more than usual in attempt to kill herself, there has been no evidence of gi bleeding this admission, fu with pcp outpt for further monitoring after psych dispo hypothyroidism with tsh above goal- in the acutely hospitalized setting this may not be entirely accurate, she also may not have been med compliant at home given her depression- rec for pcp to re check in 4 weeks and dose adjustments as needed of home synthroid based off those results time spent on dc 40 min dc to 1A
--- NOTE | 2019-03-17 11:41 | Electrocardiograph Report ---
[place] [id number] Test Date: 2019-03-16 Pat Name: Connie Copeland Department: 113 Room: 3B13 Gender: F [employer] Runner: : 1960 Requested By: Naomy Fernandez Order Number: [id number] Reading MD: Kelly Meadows Measurements Intervals Dickinson Rate: 95 P: 45 AR: 175 QRS: -25 QRSD: 115 T: 12 QT: 389 QTc: 442 Interpretive Statements SINUS RHYTHM BORDERLINE LEFT AXIS DEVIATION [QRS AXIS < -20] LOW QRS VOLTAGE IN PRECORDIAL LEADS [QRS DEFLECTION < 1.0 mV IN CHEST LEADS] INTRAVENTRICULAR CONDUCTION DELAY [110+ ms QRS DURATION] Electronically Signed On 03-17-2019 11:39:29 EDT by Kelly Meadows
== END 2019-03-17 13:55 ==
LOC: 3BNU 12:40 → EMEROOARM 12:40 → SUATTDRO 14:41 → 3BNU 15:00
PROVIDERS: ADMIT Internal Medicine Nephrology; ATTEND Internal Medicine

== ENCOUNTER 2019-03-17 14:01 | Observation (INO) ==
[2019-03-17] MEDS ORDERED: hydrOXYzine pamoate 25 MG CAPSULE PO PRN (14:54)
[2019-03-17] MEDS ORDERED: Mag Hydrox/Al Hydrox/Simeth 30 ML UDC PO PRN (14:54)
[2019-03-17] MEDS ORDERED: traZODone 50 MG TABLET PO PRN (14:54)
[2019-03-17] MEDS ORDERED: *HR* LORazepam 2 MG/ML VIAL IM PRN (14:54)
[2019-03-17] MEDS ORDERED: Haloperidol Lactate 5 MG/ML VIAL IM PRN (14:54)
[2019-03-17] MEDS ORDERED: *HR* LORazepam 1 MG TABLET PO PRN (14:54)
[2019-03-17] MEDS ORDERED: Acetaminophen 325 MG TABLET PO PRN (14:54)
[2019-03-17] MEDS ORDERED: MOM Conc 10 ML UD.LIQ PO PRN (14:54)
[2019-03-17] MEDS ORDERED: Ondansetron ODT 4 MG TAB.RAPDIS SL PRN (15:01)
[2019-03-17] MEDS: Budesonide/Formoterol 160/4.5 1 PUFF INH IH SCH (21:58)
[2019-03-18] MEDS ORDERED: Nicotine 7 MG PATCH.TD24 TD SCH (09:00)
[2019-03-18] MEDS ORDERED: Famotidine 20 MG TABLET PO SCH (09:00)
[2019-03-18 10:16] VITALS: BP 134/88
[2019-03-18] MEDS: Budesonide/Formoterol 160/4.5 1 PUFF INH IH SCH (10:18)
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
[2019-03-19] MEDS ORDERED: BuPROPion SR (12 HR) 150 MG TABLET PO SCH (09:00)
== END 2019-03-18 17:00 | disposition home health service (06) ==
LOC: 1ANU 14:01 → INTOOBSV 14:01
PROVIDERS: ADMIT Psychiatry & Neurology Psychiatry; ATTEND Psychiatry & Neurology Psychiatry

== ENCOUNTER 2019-04-14 14:26 | Inpatient (IN) ==
[2019-04-14 15:11] LABS: Basophils % 0.2 %; Eosinophils # 0.1 K/mcL (0.0-0.6); Hematocrit 37.3 % (35.3-44.9); Hemoglobin 11.9 g/dL (11.5-15.4); Immature Granulocytes % 0.4 % (0-4); Lymphocytes # 0.9 K/mcL (0.6-4.6); Lymphocytes % 8.4 %; Mean Corpuscular HGB Conc 31.9 g/dL (31.6-35.5); Mean Corpuscular Hemoglobin 28.5 pg (28.0-33.3); Mean Corpuscular Volume 89.4 fL (83.0-100.0); Mean Platelet Volume 11.4 fL (9.4-12.4); Monocytes # 0.5 K/mcL (0.0-1.3); Monocytes % 4.7 %; Neutrophils # 9.1 K/mcL (1.6-8.9); Platelet Count 196 K/mcL (140-400); Red Blood Count 4.17 M/mcL (3.82-4.97); Segmented Neutrophils % 85.3 %; White Blood Count 10.7 K/mcL (4.3-11.1)
[2019-04-14 15:28] LABS: Albumin 4.6 g/dL (3.5-5.7); Albumin/Globulin Ratio 1.5 (1.1-2.2); Bilirubin,Indirect 0.4 mg/dL (0.0-1.2); Bilirubin,Total 0.4 mg/dL (0.3-1.0); Globulin 3.1 g/dL (2.4-3.5); Total Protein 7.7 g/dL (6.4-8.9)
[2019-04-14 15:29] LABS: Acetaminophen < 10 mcg/mL (10-20); BUN/Creatinine Ratio 12 (6-26); Blood Urea Nitrogen 12 mg/dL (6-20); Calcium 9.9 mg/dL (8.6-10.3); Carbon Dioxide 23 mEq/L (23-29); Chloride 107 mEq/L (98-107); Ethanol < 10 mg/dL (Less than 10); Glucose 104 mg/dL (70-105); Osmolality,Calculated 290 (280-300); Potassium 3.5 mEq/L (3.5-5.1); Salicylate < 2.5 mg/dL (15.0-30.0); Sodium 140 mEq/L (136-145); eGFR For African Americans > 60 (> 60); eGFR For Non-African Americans 55 (> 60)
[2019-04-14 16:41] LABS: Bilirubin,Urine Negative (Negative); Blood,Urine Negative (Negative); Clarity,Urine Clear (Clear); Color,Urine Yellow (Yellow); Glucose,Urine (UA) Normal (Normal); Ketones,Urine Negative (Negative); Leukocyte Esterase,Urine Negative (Negative); Nitrite,Urine Negative (Negative); Protein,Urine 30 mg/dL (Neg-Trace); Specific Gravity,Urine 1.027 (1.010-1.025); Urobilinogen,Urine Normal (Normal)
[2019-04-14 16:45] LABS: Bacteria,Urine Few per hpf (None-Few); Hyaline Casts,Urine None Seen per lpf (None-Few); RBC,Urine 0-3 per hpf (0-3); Squamous Epithelial Cell,Urine Many per lpf (None-Few)
[2019-04-14 16:49] LABS: Amphetamine Screen,Urine Negative ng/mL (Cutoff=1000); Barbiturate Screen,Urine Negative ng/mL (Cutoff=200); Benzodiazepines Screen,Urine Positive ng/mL (Cutoff=200); Cannabinoid Screen,Urine Positive ng/mL (Cutoff = 50); Cocaine Screen,Urine Negative ng/mL (Cutoff= 300); Opiate Screen,Urine Negative ng/mL (Cutoff=300); Phencyclidine Screen,Urine Negative ng/mL (Cutoff=25)
[2019-04-14] MEDS ORDERED: Nicotine 14 MG PATCH.TD24 TD STA (17:58)
[2019-04-15] MEDS ORDERED: *HR* LORazepam 1 MG TABLET PO PRN (00:32)
[2019-04-15] MEDS ORDERED: MOM Conc 10 ML UD.LIQ PO PRN (00:32)
[2019-04-15] MEDS ORDERED: *HR* LORazepam 2 MG/ML VIAL IM PRN (00:32)
[2019-04-15] MEDS ORDERED: Haloperidol Lactate 5 MG/ML VIAL IM PRN (00:32)
[2019-04-15] MEDS ORDERED: hydrOXYzine pamoate 25 MG CAPSULE PO PRN (00:32)
[2019-04-15] MEDS ORDERED: Mag Hydrox/Al Hydrox/Simeth 30 ML UDC PO PRN (00:32)
[2019-04-15] MEDS: traZODone 50 MG TABLET PO PRN ×2 (03:09→20:24)
[2019-04-15] MEDS: Nicotine 21 MG PATCH.TD24 TD SCH (09:25)
[2019-04-15] MEDS ORDERED: Artificial Tears SOLN 15 ML BOTTLE BOTH EYES PRN (09:41)
[2019-04-15] MEDS: Budesonide/Formoterol 80/4.5 1 PUFF INH IH SCH ×2 (11:36→21:03)
[2019-04-15] MEDS: Diphenoxylate/Atropine 1 TAB TABLET PO SCH ×2 (18:09→20:23)
[2019-04-15] MEDS: Ibuprofen 400 MG TABLET PO PRN (20:23)
[2019-04-16] MEDS: Diphenoxylate/Atropine 1 TAB TABLET PO SCH ×3 (09:25→20:28)
[2019-04-16] MEDS: Budesonide/Formoterol 80/4.5 1 PUFF INH IH SCH ×2 (09:26→20:30)
[2019-04-16] MEDS: Nicotine 21 MG PATCH.TD24 TD SCH (09:26)
[2019-04-16] MEDS: Ibuprofen 400 MG TABLET PO PRN (19:25)
[2019-04-16] MEDS: traZODone 50 MG TABLET PO PRN (20:28)
[2019-04-17] MEDS: Ibuprofen 400 MG TABLET PO PRN (03:41)
[2019-04-17] MEDS: Nicotine 21 MG PATCH.TD24 TD SCH (08:25)
[2019-04-17] MEDS: Diphenoxylate/Atropine 1 TAB TABLET PO SCH (08:26)
[2019-04-17 09:23] VITALS: BP 153/82
[2019-04-17] MEDS: Budesonide/Formoterol 80/4.5 1 PUFF INH IH SCH (09:49)
== END 2019-04-17 14:20 | disposition home or self-care (01) | DRG 918 ==
LOC: EMEROOARM 14:26 → SUATTDRO 04-15 00:20 → 1ANU 04-15 00:20
PROVIDERS: ADMIT Psychiatry & Neurology Forensic Psychiatry; ATTEND Psychiatry & Neurology Psychiatry